=== PATIENT | female | born 1980 | race Caucasian/White ===

== ENCOUNTER → 2022-07-22 | Outpatient (CLI) | payer OTHER, SELFPAY | END | disposition home or self-care (01) | LOC: SL 20:07 | PROVIDERS: PCP Internal Medicine; Visit Provider Internal Medicine Cardiovascular Disease | DX: R06.83 Snoring (principal); R53.81 Other malaise; I10 Essential (primary) hypertension | CPT/HCPCS: 95810 ==

== ENCOUNTER → 2022-08-21 | Outpatient (CLI) | payer OTHER, SELFPAY ==
--- NOTE | 2022-08-21 12:54 | CT_ITS ---
STUDY: CT CHEST WITHOUT CONTRAST REASON FOR EXAM: Female, 42 years old. FATIGUE OVERREAD ONLY RADIATION DOSAGE (If Supplied By Facility): CTDIvol = ( 35.41 ) mGy, DLP = ( 1413.14 ) mGycm TECHNIQUE: Transaxial imaging was performed without the administration of intravenous contrast material. Individualized dose optimization techniques were used for this CT. COMPARISON: No relevant priors. FINDINGS: CHEST There is evidence of bilateral breast implants. The lungs are normal. There is no demonstrated pleural abnormality. Normal heart and pericardium. Normal mediastinum. Normal hilar regions. Normal unenhanced pulmonary arteries. Normal aorta arch and descending thoracic aorta. Normal osseous structures. Fatty infiltration of the liver. CT/Limited Chest CT Cardiac Only IMPRESSION: Normal unenhanced CT chest Electronically Signed: Cas Estrada MD at 14:31 EDT ,
[2022-08-21 13:02] VITALS: BP 121/58; PULSE 53; RESP 16; TEMP 36.8; O2SAT 98; BMI 25.0
[2022-08-21 13:15] VITALS: BP 121/58; PULSE 53
[2022-08-21] MEDS: Nitroglycerin SL (ED/IMG/CATH) 0.4 MG TABLET SL (13:15)
[2022-08-21 13:24] VITALS: BP 129/40; PULSE 62; RESP 16; O2SAT 95
[2022-08-21 13:26] LABS: CREATININE FINGERSTICK < 0.9 mg/dL (0.55-1.02); EGFR FINGERSTICK > 60.0000 mL/min (>60)
--- NOTE | 2022-08-21 18:18 | CCTA_ITS ---
CCTA w/Cont Coronary Arteries Date of Study:: 08/21/22 Dyspnea on Exertion Consent:: Per Patient The patient underwent coronary CTA with specific attention paid to the coronary vasculature for the evaluation of underlying atherosclerotic coronary artery disease. The patient tolerated the procedure well with no obvious adverse events. LEFT MAIN CORONARY ARTERY: The left main coronary artery is a large vessel giving rise to the left anterior descending coronary artery and the left circumflex coronary artery. The left main coronary artery appears to be angiographically within normal limits. LEFT ANTERIOR DESCENDING CORONARY ARTERY: The left anterior descending coronary artery is a large vessel which eventually tapers to a smaller vessel as it courses to the LV apex. The left anterior descending coronary artery appears to be angiographically within normal limits. LEFT CIRCUMFLEX CORONARY ARTERY: The left circumflex coronary artery is a large vessel which gives rise to a moderate-sized bifurcating obtuse marginal branching system. The left circumflex coronary artery system appears to be angiographically within normal limits RIGHT CORONARY ARTERY: The right coronary artery appears to be a large dominant vessel giving rise to a smaller right posterior descending coronary artery system. The right coronary artery system appears to be angiographically within normal limits. THORACIC AORTA: The thoracic aorta appears to be patent and angiographically within normal li mits. PULMONARY ARTERY: The main pulmonary artery and proximal portions of the right and left pulmonary artery appear to be patent without obvious filling defects. LEFT ATRIUM/APPENDAGE: The left atrial appendage appears to be patent without obvious filling defects. MITRAL VALVE: The mitral valve appears to be bileaflet. AORTIC VALVE: The aortic valve appears to be trileaflet. LEFT VENTRICLE: The left ventricle appears demonstrate normal left ventricular systolic function. The calculated left ventricular ejection fraction is 64%. CORONARY CALCIUM SCORE: A coronary calcium score was not obtained. This note was generated using a voice recognition system and there may be incorrect words, spelling or punctuation that were not noted when reviewing the office note prior to saving.
--- NOTE | 2022-08-25 11:37 | CCTA.WCONT ---
CCTA w/Cont Coronary Arteries Date of Study:: 08/21/22 Chest pain Consent:: Informed consent was obtained LEFT MAIN CORONARY ARTERY: Normal arising from the left coronary cusp [] LEFT ANTERIOR DESCENDING CORONARY ARTERY: Bifurcating from the left main coronary artery and continuing towards the apex of the ventricle giving of a prominent diagonal vessel with no significant stenosis noted [] LEFT CIRCUMFLEX CORONARY ARTERY: Nondominant but large vessel giving off an obtuse marginal branch with no significant stenosis noted [] RIGHT CORONARY ARTERY: Dominant large coronary artery continuing with a posterior descending artery with no significant stenosis noted [] THORACIC AORTA: Normal [] PULMONARY ARTERY: Normal [] LEFT ATRIUM/APPENDAGE: [] MITRAL VALVE: [] AORTIC VALVE: Trileaflet [] LEFT VENTRICLE: Normal size [] Conclusion: Normal coronary CT angiogram noted
== END | disposition home or self-care (01) ==
PROVIDERS: PCP Internal Medicine; Referring Provider Internal Medicine Cardiovascular Disease; Visit Provider Internal Medicine Cardiovascular Disease
DX: R06.09 Other forms of dyspnea (principal); R07.9 Chest pain, unspecified; R53.83 Other fatigue
CPT/HCPCS: 75574; 76380; Q9967

== ENCOUNTER → 2022-08-28 | Outpatient (CLI) | payer OTHER, SELFPAY ==
[2022-08-28 16:53] LABS: Bacteria 0 SEEN /hpf (None Seen); Mucous, Urine 0 SEEN /hpf (<or=2+); Red Blood Cells-Urine 0 SEEN /hpf (0-5)
[2022-08-28 18:12] LABS: Color, Urine Yellow (Yellow); Glucose, Dipstick Normal (Normal); Ketone-Dipstick Negative (Negative); Leukocyte Esterase-Dipstick Negative /ul (Negative); Nitrite-Dipstick Negative (Negative); Occult Blood-Urine 10 /ul (Negative); Protein-Dipstick Negative (Negative); Urine Bilirubin Dipstick Negative (Negative); Urine Clarity Clear (Clear); Urine Urobilinogen Normal (Normal)
[2022-08-28 18:15] LABS: Absolute Lymphocyte Count 2.38 X10^3/uL (0.83-4.51); Basophil# 0.03 X10^3/uL; Basophil% 0.4 % (0-1); Eosinophil# 0.06 X10^3/uL; Eosinophils% 0.9 % (0-5); Hematocrit 40.4 % (37-47); Hemoglobin 14.1 g/dL (12.0-15.0); Lymphocyte # 2.38 X10^3/ul (0.83-4.51); Lymphocyte % 34.1 % (19-41); Mean Corp Hgb Conc 34.9 g/dL (32-36); Mean Corpuscular Hgb 30.5 pg (27.0-32.0); Mean Corpuscular Volume 87.4 fL (81-99); Mean Platelet Vol. 10.4 fl (6.2-12.0); Monocyte# 0.45 X10^3/uL; Monocyte% 6.5 % (0-10); NRBC Flagged by Analyzer 0 % (0-5); Neutrophil # 4.04 X10^3/uL (2.7-7.7); Platelet Count 285 K/mm3 (150-450); RBC Distribution Width CV 12.6 % (11.6-14.6); RBC Distribution Width SD 40.1 fl (35.1-43.9); Red Blood Count 4.62 M/mm3 (4.2-5.4)
[2022-08-28 18:34] LABS: Vitamin B12 914 pg/mL (211-911)
[2022-08-28 18:44] LABS: Squamous Epithelial Cells - UA 0-5 SEEN /hpf (5-10); White Blood Cells 0-5 SEEN /hpf (0-5)
[2022-08-28 19:14] LABS: ALB/GLOB Ratio 1.2 RATIO (0.9-2.4); AST(SGOT) 24 U/L (15-37); Alanine Aminotransfer ALT/SGPT 30 U/L (13-56); Albumin, Serum 4.4 g/dL (3.2-5.0); Alkaline Phosphatase 41 U/L (45-117); Anion Gap 9 (5-15); BUN 20 mg/dL (7-18); BUN/Creat Ratio 21.6 RATIO (10-20); Calcium,Total 10.1 mg/dL (8.5-10.1); Chloride 98 mmol/L (98-107); Cholesterol 216 mg/dL (200); Creatinine, Serum 0.93 mg/dL (0.55-1.02); EST Glomerular Filtration Rate 71 mL/min (>60); Est Glom Filt Rate - Afr Amer 86 mL/min (>60); Ferritin 23 ng/mL (8-252); Globulin 3.6 g/dL (2.2-4.2); Glucose 86 mg/dL (74-106); High Density Lipoprotein 104 mg/dL; Iron 81 ug/dL (50-170); Iron Binding Capacity,Total 386 ug/dL (250-450); Potassium 3.5 mmol/L (3.5-5.1); Sodium Level 135 mmol/L (136-145); Thyroid Stim Hormone (TSH) 2.55 uIU/mL (0.358-3.74); Triglycerides 61 mg/dL; Very Low Density Lipoprotein 12 mg/dL (5-40)
== END | disposition home or self-care (01) ==
LOC: MFPLAB 16:50
PROVIDERS: PCP Family Medicine; Referring Provider Family Medicine; Visit Provider Family Medicine
DX: D64.9 Anemia, unspecified (principal); I10 Essential (primary) hypertension
CPT/HCPCS: 36415; 80053; 80061; 81001; 82607; 82728; 82746; 83540; 83550; 84443; 85025

== ENCOUNTER → 2022-09-04 | Outpatient (CLI) | payer OTHER, SELFPAY ==
--- NOTE | 2022-09-04 16:40 | US_ITS ---
STUDY: RENAL ULTRASOUND - COMPLETE REASON FOR EXAM: Female, 42 years old. EARLY ONSET HTN TECHNIQUE: Ultrasound evaluation of the kidneys was performed with real-time and static willis-scale imaging. COMPARISON: None. FINDINGS: RIGHT KIDNEY: Normal location of the right kidney, which is normal in size. The right kidney measures 11.5 cm x 5.7 cm x 3.7 cm. There is a normal cortex of the right kidney. The renal cortex measures 1.1 cm. There is no right renal mass or cyst. There are no right renal calculi. There is no right hydronephrosis. DISTAL RIGHT URETER: There is non-visualization of the distal right ureter. There is no demonstrated right ureterovesical junction calculus. There is a visualized right ureteral jet. LEFT KIDNEY: Normal location of the left kidney, which is normal in size. The left kidney measures 11.3 cm x 4.9 cm x 6.1 cm. There is a normal cortex of the left kidney. The renal cortex measures 1. cm. There is no left renal mass or cyst. There is a 4 mm x 6 mm x 5 mm calculus in the upper pole of the kidney. There is no left hydronephrosis. DISTAL LEFT URETER: There is non-visualization of the distal left ureter. There is no demonstrated left ureterovesical junction calculus. There is a visualized left ureteral jet. BLADDER: The distended urinary bladder has a volume of 33 ml. There is a normal wall thickness of the distended urinary bladder. There is no demonstrated mass within the urinary bladder. There are no demonstrated bladder calculi. Incidental note is made of a 1.3 cm x 1.3 cm x 0.9 some septated cyst in the inferior right lobe of the liver. US/Kidney and Bladder IMPRESSION: 4 mm x 5 mm x 6 mm nonobstructive left intrarenal calculus. Electronically Signed: Cas Estrada MD at 9:55 EST ,
== END | disposition home or self-care (01) ==
PROVIDERS: PCP Family Medicine; Referring Provider Family Medicine; Visit Provider Family Medicine
DX: I10 Essential (primary) hypertension (principal)
CPT/HCPCS: 76770

== ENCOUNTER 2022-09-13 09:21 | Outpatient (CLI) | payer OTHER, SELFPAY ==
--- NOTE | 2022-09-13 09:27 | US_ITS ---
STUDY: ABDOMINAL ULTRASOUND - RIGHT UPPER QUADRANT REASON FOR VISIT: Female, 42 years old abnormal LFTs TECHNIQUE: Ultrasound evaluation of the right upper quadrant was performed with real-time and static cano-scale imaging. TECHNICAL QUALITY: Adequate. COMPARISON: 09/04/2022 FINDINGS: Liver: The liver measures 14.5 cm. There is normal echogenicity of the liver. The bile ducts are within normal limits. There is hepatic color flow. The direction of portal flow is hepatopetal. There is no demonstrated solid mass lesion. There is a septated 1.1 cm cyst in the right lobe unchanged from the previous study. There are 2 other simple cysts both measuring approximately 8 mm. Gallbladder: Normal distended gallbladder. The gallbladder wall measures 2 mm. There is a negative sonographic Patino''s sign. There is no pericholecystic fluid. There are no gallstones. Common Bile Duct (C.B.D.): The common bile duct measures 3 mm. Pancreas: Normal size of the head, body and tail of the pancreas. There is normal echogenicity of the pancreas. There is no demonstrated pancreatic mass or cyst. Right Kidney: Normal size of the right kidney. The right kidney measures 10.7 x 5.7 x 3.3 cm. Normal renal cortex. The right cortex measures 1.8 cm. There is no demonstrated renal mass or cyst. There is no right hydronephrosis. US/Abdomen Limited IMPRESSION: No suspicious sonographic findings, simple and septated hepatic cysts, no specific follow-up needed. Electronically Signed: Hunter Chamberlain MD at 10:19 EST ,
== END 2022-09-13 23:59 | disposition home or self-care (01) ==
PROVIDERS: PCP Family Medicine; Referring Provider Family Medicine; Visit Provider Family Medicine
DX: R16.0 Hepatomegaly, not elsewhere classified (principal)
CPT/HCPCS: 76705

== ENCOUNTER → 2022-10-14 | Outpatient (CLI) | payer OTHER, SELFPAY ==
--- NOTE | 2022-10-14 07:55 | RDU_ITS ---
Reason For Study: HTN Right Renal Artery Left Renal Artery Right renal artery ostium Left renal artery ostium 132.9/47.4 102.2/43.0 RSV/EDV. PSV/EDV. Right renal artery proximal Left renal artery proximal PSV/EDV 91.3/21.1 PSV/EDV. 81.8/22.5 . Right renal artery mid 135.1/51.8 Left renal artery mid 121.9/33.2 PSV/EDV. PSV/EDV . Right renal artery distal Left renal artery distal 129.1/29.1 106.5/34.7 PSV/EDV. PSV/EDV. Right Renal Parenchyma Left Renal Parenchyma Upper Pole Medula 37.1/12.4 Left upper pole medulla 40.7/16.1 PSV/EDV. PSV/EDV . Right upper pole medulla EDR .33 . Left upper pole medulla EDR .39 . Right upper pole medulla R.I. .67 . Left upper pole medulla R.I. .61 . Upper Gregory Cortx 41.6/15.2 PSV/EDV. UP Cortex 38.0/15.2 PSV/EDV. Right upper pole cortex EDR .36 . Left upper pole cortex EDR .4 . Right upper pole cortex R.I. .64 . Left upper pole cortex R.I. .6 . Right lower Pole medulla 38.9/14.2 Left lower Pole medulla 27.9/10.6 PSV/EDV . PSV/EDV . Right lower pole medulla EDR .37 . Left lower pole medulla EDR .38 . Right lower pole medulla R.I. .63 . Left lower pole medulla R.I. .62 . Lower Pole Cortex 33.4/6.9 PSV/EDV. Lower Pole Cortx 38.9/16.1 PSV/EDV. Right lower pole cortex EDR .21 . Left lower pole cortex EDR .41 . Right lower pole cortex R.I. .79 . Left lower pole cortex R.I. .59 . Right Renal Hilar Left Renal Hilar Right Hilar avg 65.4/20.4 PSV/EDV. LT Hilar avg 48.0/17.0 PSV/EDV . Right hilar acceleration time 50 Left hilar acceleration time 60 m/sec. m/sec. Right Renal Dimensions Left Renal Dimensions Right kidney size 10.7 cm . Left kidney size 11.0 cm . Right cortical dimension 1.67 cm . Left cortical dimension 2.13 cm . Aorta Proximal abdominal aorta 1.46 x 1.27 cm . Proximal abdominal aorta peak systolic velocity is 106.7 cm/sec . Distal abdominal aorta 1.49 x 1.59 cm . Distal abdominal aorta peak systolic velocity is 104.4 cm/sec . VL/Renal Artery Duplex Ultrasound Interpretation Summary Right renal artery patent with normal velocities, no stenosis. Left renal artery patent with normal velocities, no stenosis. Right renal vein patent Left renal vein patent Right kidney normal in size Left kidney normal in size Ordering Physician: Néstor Garcia Performed By: Sameer Márquez RVT
== END | disposition home or self-care (01) ==
LOC: CVS 07:54
PROVIDERS: PCP Family Medicine; Referring Provider Family Medicine; Visit Provider Family Medicine
DX: I10 Essential (primary) hypertension (principal)
CPT/HCPCS: 93975

== ENCOUNTER → 2023-02-10 | Outpatient (CLI) | payer OTHER, SELFPAY ==
--- NOTE | 2023-02-10 14:47 | BI_ITS ---
MAMMOGRAPHY - BILATERAL SCREENING REASON FOR EXAM: Female, 43 years old. Routine annual screening examination. PERTINENT HISTORY: Non-contributory. Bilateral breast implants. TECHNIQUE: Digital bilateral breast morales (3D mammographic acquisition) in the CC and MLO projections. 2-D mediolateral oblique (MLO) and craniocaudad (CC) views of both breasts were obtained. CAD: Full Field Digital Mammography with Computer Added Detection was performed. COMPARISON: None. Baseline examination. FINDINGS: Breast Composition: The breasts are extremely dense, which lowers the sensitivity of mammography. There are no dominant masses or suspicious calcifications. Bilateral breast implants are unremarkable. No other significant abnormalities are identified. BI/SCRN MAMM (CAD)W/MORALES BILAT IMPRESSION: Negative screening mammogram. Yearly followup mammogram recommended. (A) ASSESSMENT CATEGORY: BIRADS Category 2: Benign. A letter regarding these results will be sent to the patient by the facility within 30 days. Approximately 10% of breast cancers are not detected by mammography. A normal mammogram should not delay biopsy of a clinically suspicious abnormality. [id number] Electronically Signed: Cas Estrada MD at 15:29 EDT ,
== END | disposition home or self-care (01) ==
LOC: OPBI 14:45
PROVIDERS: PCP Family Medicine; Referring Provider Nurse Practitioner Family; Visit Provider Nurse Practitioner Family
DX: Z12.31 Encounter for screening mammogram for malignant neoplasm of breast (principal)
CPT/HCPCS: 77063; 77067

== ENCOUNTER → 2023-02-13 | Outpatient (CLI) | payer OTHER, SELFPAY ==
--- NOTE | 2023-02-13 16:03 | RAD_ITS ---
EXAM: XR ABDOMEN, 2 VIEWS AND XR CHEST, 1 VIEW CLINICAL INDICATION: unspecified abdominal pain TECHNIQUE: Frontal view of the chest, frontal view of the abdomen/pelvis and upright or decubitus view of the abdomen. This report was created using [employer] report generation technology. COMPARISON: None. FINDINGS: CHEST: LUNGS AND PLEURAL SPACES: Unremarkable. No consolidation or edema. No pneumothorax. No effusion. HEART: Unremarkable. Cardiac silhouette not enlarged. MEDIASTINUM: Central airways and mediastinal contour are unremarkable. ABDOMEN: INTRAPERITONEAL SPACE: No free air. GASTROINTESTINAL TRACT: Unremarkable. Non-obstructive. No bowel or stomach distention. Mild gas and stool in the hepatic flexure, minimal gas and stool in the splenic flexure, mild gas in the rectosigmoid. ORGANS: Unremarkable as visualized. No organomegaly. No abnormal calcifications. TUBES, LINES AND DEVICES: None. BONES/JOINTS: No acute findings. SOFT TISSUES: No acute findings. Multiple phleboliths in the pelvis. RAD/Acute Abdomen Inc Chest IMPRESSION: Negative chest and abdominal series. Electronically Signed: Reina Patrick MD at 7:50 EDT ,
[2023-02-13 17:59] LABS: Absolute Lymphocyte Count 2.08 X10^3/uL (0.83-4.51); Absolute Neutrophil Count 2.7 X10^3/uL (2.0-7.7); Basophil# 0.04 X10^3/uL; Basophil% 0.8 % (0-1); Eosinophil# 0.07 X10^3/uL; Eosinophils% 1.3 % (0-5); Hematocrit 39.3 % (37-47); Hemoglobin 12.8 g/dL (12.0-15.0); Lymphocyte # 2.08 X10^3/ul (0.83-4.51); Lymphocyte % 39.5 % (19-41); Mean Corp Hgb Conc 32.6 g/dL (32-36); Mean Corpuscular Hgb 29.2 pg (27.0-32.0); Mean Corpuscular Volume 89.7 fL (81-99); Mean Platelet Vol. 10.7 fl (6.2-12.0); Monocyte# 0.42 X10^3/uL; NRBC Flagged by Analyzer 0 % (0-5); Neutrophil # 2.65 X10^3/uL (2.7-7.7); Neutrophil % 50.2 % (47-70); Platelet Count 240 K/mm3 (150-450); RBC Distribution Width CV 12.5 % (11.6-14.6); RBC Distribution Width SD 41.4 fl (35.1-43.9); Red Blood Count 4.38 M/mm3 (4.2-5.4); White Blood Count 5.3 K/mm3 (4.4-11.0)
[2023-02-13 18:51] LABS: ALB/GLOB Ratio 1.2 RATIO (0.9-2.4); AST(SGOT) 22 U/L (15-37); Alanine Aminotransfer ALT/SGPT 26 U/L (13-56); Albumin, Serum 4.1 g/dL (3.2-5.0); Alkaline Phosphatase 50 U/L (45-117); Anion Gap 4 (5-15); BUN 17 mg/dL (7-18); BUN/Creat Ratio 22.2 RATIO (10-20); Chloride 104 mmol/L (98-107); Creatinine, Serum 0.77 mg/dL (0.55-1.02); EST Glomerular Filtration Rate 88 mL/min (>60); Est Glom Filt Rate - Afr Amer 107 mL/min (>60); Globulin 3.3 g/dL (2.2-4.2); Glucose 90 mg/dL (74-106); Potassium 3.7 mmol/L (3.5-5.1); Protein, Total 7.4 g/dL (6.4-8.2); Sodium Level 133 mmol/L (136-145)
== END | disposition home or self-care (01) ==
PROVIDERS: PCP Family Medicine; Referring Provider Family Medicine; Visit Provider Family Medicine
DX: R10.9 Unspecified abdominal pain (principal); K21.9 Gastro-esophageal reflux disease without esophagitis
CPT/HCPCS: 36415; 74022; 80053; 85025

== ENCOUNTER → 2023-05-22 | Outpatient (CLI) | payer OTHER, SELFPAY ==
[2023-05-27 22:07] LABS: Beef <0.10 kU/L (Class 0); Chocolate <0.10 kU/L (Class 0); Corn <0.10 kU/L (Class 0); Egg, Whole <0.10 kU/L (Class 0); Milk (Cow) <0.10 kU/L (Class 0); Peanut <0.10 kU/L (Class 0); Pork <0.10 kU/L (Class 0); Soybean <0.10 kU/L (Class 0); Wheat <0.10 kU/L (Class 0)
== END | disposition home or self-care (01) ==
LOC: MFPLAB 11:54
PROVIDERS: PCP Family Medicine; Visit Provider Family Medicine
DX: Z91.018 Allergy to other foods (principal); R10.9 Unspecified abdominal pain
CPT/HCPCS: 36415; 82784; 83516; 86003; 86005; 86255

== ENCOUNTER 2023-06-02 09:10 | Emergency (ER) | payer OTHER, SELFPAY ==
[2023-06-02 09:11] VITALS: BP 160/81; PULSE 90; RESP 18; TEMP 35.9; O2SAT 98; BMI 25.0
--- NOTE | 2023-06-02 09:33 | ED.VIS.BACK ---
HPI History of Present Illness Chief Complaint: Back Detail of Chief Complaint: Back pain Informant: patient Narrative Narrative: Patient presents to the emergency department complaint of back pain that initially started yesterday. Patient states the pain was mild. Patient states pain progressively got worse. She does state that she works out a lot but has not lifted heavy for a couple of weeks. Patient also has history of chronic right knee issues and pain and is trying to delay getting a knee replacement. She is not sure if she is overcompensating and how she moves which caused her back pain. She denies urinary symptoms. She denies pain radiating down her legs. She denies loss of bowel or bladder function. Patient just having a hard time moving secondary to pain. She has had no fever or recent illness. [facility] Medical History Anemia Bradycardia Depression [place] (dyspnea on exertion) Essential (primary) hypertension Fatigue GERD (gastroesophageal reflux disease) Migraine Home Medications cyanocobalamin (vitamin B-12) 1,000 mcg capsule 1,000 mcg PO DAILY 07/07/22 [History Last Taken Unknown] ferrous sulfate 325 mg (65 mg iron) tablet 325 mg PO DAILY 07/07/22 [History Last Taken Unknown] loratadine 5 mg chewable tablet (Children's Loratadine) 5 mg PO QAM PRN allergy symptoms 07/07/22 [History Last Taken Unknown] multivitamin with minerals (Hair,Skin and Nails tablet) 1 tab PO DAILY 07/07/22 [History Last Taken Unknown] omega-3 fatty acids 1,000 mg capsule 1,000 mg PO DAILY 07/07/22 [History Last Taken Unknown] lisinopril 20 mg-hydrochlorothiazide 12.5 mg tablet 1 tab PO DAILY #90 tabs 07/09/22 [Rx Last Taken Unknown] cyclobenzaprine 10 mg tablet 10 mg PO TID PRN Muscle Spasm #20 TABLETS 06/02/23 [Rx Last Taken Unknown] hydrocodone-acetaminophen 5-325mg 5mg-325mg 1 tab PO Q4H PRN PRN Pain 2 days #15 TABLETS 06/02/23 [Rx Last Taken Unknown] naproxen 500 mg tablet 500 mg PO BID #14 tabs 06/02/23 [Rx Last Taken Unknown] Allergy/AdvReac Type Severity Reaction Status Date / Time No Known Allergies Allergy Verified 06/02/23 09:10 Family History Father Cancer Lung Son 5p minus syndrome Surgical History History of breast augmentation (~2009) History of hysterectomy (~04/16/21) Hx of abdominoplasty Hx of knee surgery Hx of knee surgery Hx of tubal ligation Social History Smoking Status: Never smoker alcohol intake: current alcohol intake frequency: holidays/special occasions only substance use type: does not use caffeine: Yes Type: coffee Number of servings: 1 ROS ROS ED Review of Systems ROS Unobtainable: other Constitutional Constitutional ED: Reports lethargy; Denies chills, fever(s), sweats or weight loss Eyes Eyes: Denies blurry vision, change in vision or diplopia ENT ENT ED: Denies rhinorrhea or sore throat Cardiovascular Cardiovascular: Denies chest pain, orthopnea or racing heartbeat Respiratory/Chest Respiratory/Chest: Denies cough, dyspnea, dyspnea on exertion, orthopnea or sputum Gastrointestinal Gastrointestinal: Denies abdominal pain, diarrhea, nausea or vomiting Genitourinary Genitourinary ED: Denies dysuria, hematuria or urinary frequency Musculoskeletal Musculoskeletal: Reports back pain; Denies arthralgias, myalgias or neck pain Integumentary Denies abscess, Abrasions or rash Neurologic Neurologic: Denies headache(s) or weakness Psychiatric Psychiatric: Denies anxiety, depression or suicidal thoughts Endocrine Endocrinology: Denies polydipsia, polyphagia or polyuria Hematologic/Lymphatic Hematologic/Lymphatic: Denies easy bleeding, easy bruising or lymphadenopathy Allergic/Immunologic Allergic/Immunologic ED: Denies mouth swelling, tongue swelling or urticaria EXAM Physical Exam Const Vital Signs: 06/02/23 09:11 06/02/23 10:45 Temperature 96.6 F L Temperature Source Temporal Pulse Rate 90 72 Respiratory Rate 18 18 Blood Pressure 160/81 H 158/62 H Blood Pressure Mean 107 Pulse Ox 98 Oxygen Delivery Method Room Air Positive well nourished and well developed General Appearance ED: well developed and NAD HEENT Reports TM's clear and moist mucous membranes normocephalic and atraumatic; Negative for trauma or tenderness Tympanic Membrane ED: Yes TM's clear Eyes PERRL and EOMs intact bilaterally General Eye ED: Negative for pale conjunctiva or scleral icterus Neck no lymphadenopathy, supple and no JVD General: Negative for tenderness Chest Wall inspection of chest normal and palpation of chest normal Chest: Negative for tenderness Resp normal respiratory effort and clear to auscultation bilaterally Effort and Inspection: Negative for respiratory distress or pain with movement Auscultation: Negative for rhonchi, wheezes or diminished lung sounds Cardio regular rate, regular rhythm, S1 normal heart sound, S2 normal heart sound and no murmurs Peripheral Pulses: pulses 2+ throughout GI normal to inspection, nondistended, normoactive bowel sounds, soft to palpation, non-tender, non-distended and no masses Back/Spine Back/Spine Narrative: Patient has some mild tenderness over the right lumbar paraspinal musculature. She has no tenderness in the thoracic or lumbar spine. She has negative straight leg raises. Deep tendon reflexes are plus 2 out of 4 bilaterally at the patella and Achilles. Patient has normal L5 extension bilaterally. Patient has normal sensation to light touch. Extremity normal to inspection General Extremety ED: Negative for edema General Extremity: Negative for edema Neuro oriented x3, CN's II-XII intact bilaterally, no sensory deficits noted and gait normal Sensorium / Orientation: awake, alert, oriented to person, oriented to place and oriented to time Motor Exam: strength 5/5 throughout and strength abnormal Psych mental status grossly normal Skin no rashes or lesions noted and no wounds MDM MDM MDM Narrative Medical decision making narrative: Patient is with atraumatic back pain. No radiculopathic signs or symptoms. No red flags for cauda equina. Discussed imaging but clinically did not feel this was indicated as she has had no trauma and she is comfortable with this. Suspect likely this is more muscle spasm. Patient was given a shot of Dilaudid as well as Toradol and a dose of Valium p.o. She will be given a prescription for [place], Naprosyn, and Flexeril. Patient advised to follow-up with her primary care physician within next 3 to 5 days. Advised to avoid lifting or repetitive motions with her back. She is advised to return if worsening pain, weakness extremities, change in bowel or bladder function, or condition should worsen anyway. Discharge Plan Triage Chief Complaint: Back ED Provider: Nelly Gimenez Dx/Rx/DC Orders Clinical Impression: Back pain Instructions: ED Back Spasm, No Trauma, ED Back and Neck Pain, General Prescriptions: New cyclobenzaprine [cyclobenzaprine] 10 mg tablet 10 mg PO TID PRN (Reason: Muscle Spasm) Qty: 20 0RF hydrocodone-acetaminophen [hydrocodone-acetaminophen] 5-325 mg tablet 1 tab PO Q4H PRN PRN (Reason: Pain) 2 Days Qty: 15 0RF naproxen 500 mg tablet 500 mg PO BID Qty: 14 0RF No Action cyanocobalamin (vitamin B-12) 1,000 mcg capsule 1,000 mcg PO DAILY ferrous sulfate 325 mg (65 mg iron) tablet 325 mg PO DAILY Children's Loratadine 5 mg tablet,chewable 5 mg PO QAM PRN (Reason: allergy symptoms) Hair,Skin and Nails Tablet 1 tab PO DAILY omega-3 fatty acids 1,000 mg capsule 1,000 mg PO DAILY lisinopril-hydrochlorothiazide 20-12.5 mg tablet 1 tab PO DAILY Qty: 90 3RF Primary Care Provider: Néstor Garcia Referrals: Néstor Garcia MD [Primary Care Provider] - Disposition Disposition: Home, Self Care Discharge Date/Time: 06/02/23 10:46
[2023-06-02] MEDS: diazePAM 2 MG Tablet 4 MG PO (09:37)
[2023-06-02] MEDS: Ketorolac 60 MG/2 ML Vial IM (09:38)
[2023-06-02] MEDS: HYDROmorphone 1 MG/ML Syringe IM (09:40)
[2023-06-02 10:45] VITALS: BP 158/62; PULSE 72; RESP 18
== END 2023-06-02 10:46 | disposition home or self-care (01) ==
LOC: ED 09:49
PROVIDERS: Emergency Provider Emergency Medicine; PCP Family Medicine; Visit Provider Emergency Medicine
DX: M54.9 Dorsalgia, unspecified (principal); I10 Essential (primary) hypertension
CPT/HCPCS: 96372; 99283

== ENCOUNTER 2023-07-28 17:47 | Emergency (ER) | payer OTHER, SELFPAY ==
[2023-07-28 17:48] VITALS: BP 151/93; PULSE 70; RESP 18; TEMP 36.3; O2SAT 97; BMI 25.4
--- NOTE | 2023-07-28 18:05 | CT_ITS ---
EXAM: CT ABDOMEN AND PELVIS WITHOUT INTRAVENOUS CONTRAST CLINICAL INDICATION: Kidney Stone -- Right-sided pain, status post hysterectomy TECHNIQUE: Helically acquired images were obtained of the abdomen and pelvis without intravenous contrast. This CT exam was performed using one or more of the following dose reduction techniques: automated exposure control, adjustment of the mA and/or kV according to patient size, and/or use of iterative reconstruction technique. COMPARISON: No relevant prior studies available. FINDINGS: LOWER THORAX: Unremarkable. Lung bases are clear. No cardiomegaly. No significant pericardial effusion. ABDOMEN: LIVER: Low-attenuation lesions in the liver measure up to 0.9 cm, too small to characterize. Liver is otherwise unremarkable. GALLBLADDER AND BILE DUCTS: Unremarkable. No calcified gallstones. No gallbladder distention or wall edema. No intra- or extrahepatic biliary ductal dilation. PANCREAS: Unremarkable. No focal cystic mass. SPLEEN: Unremarkable. Normal size without focal cystic or solid mass. ADRENALS: Unremarkable. No nodules. KIDNEYS AND URETERS: 3 mm nonobstructing stone in the upper pole of the left kidney. Kidneys are otherwise unremarkable. No hydronephrosis. Ureters are normal in course and caliber. No ureteral stone. Normal renal size and position. STOMACH AND BOWEL: Multiple fluid-filled loops of small bowel in the pelvis, upper limit of normal in size. Gas fluid levels are nonspecific. No stomach or bowel distention. No focal inflammatory change. PELVIS: APPENDIX: No evidence of acute appendicitis. BLADDER: Unremarkable. REPRODUCTIVE: Unremarkable as visualized. No mass. ABDOMEN and PELVIS: INTRAPERITONEAL SPACE: Unremarkable. No ascites or other fluid collection. No free air. BONES/JOINTS: Unremarkable. No suspicious lytic or blastic abnormality. SOFT TISSUES: Unremarkable. No discrete abdominal or pelvic wall hernia. VASCULATURE: Unremarkable. Abdominal aorta is normal in caliber. LYMPH NODES: Unremarkable. No enlarged lymph nodes. CT/Abdomen/Pelvis without Cont IMPRESSION: 1. Nonspecific fluid-filled loops of bowel, consider enteritis. 2. Nonobstructing left renal stone. No obstructive uropathy. Electronically Signed: Elizabeth Berg MD at 18:49 EDT Reading Location ID and State: [id number] / Tel , Service support ,
--- NOTE | 2023-07-28 18:06 | EDS_ITS ---
HPI History of Present Illness Chief Complaint: Abd Pain Detail of Chief Complaint: Abrupt onset of right-sided abdominal pain on Thursday Informant: patient Onset/Context/Timing Onset: Days (July 25) Context: Sudden Onset Timing: Intermittent Quality: Pain Location: Right side abdomen to inguinal area Current Severity: Mild Maximum Severity: Severe Worsened by: Nothing Relieved by: Nothing Associated Symptoms Associated Symptoms: Nausea and vomiting on Thursday and not feeling well since with urinary sym Narrative Narrative: Patient is a 43-year-old female status post hysterectomy due to uterine fibroids who presents because of pending thought she needed to be evaluated because she has appendicitis. Patient had abrupt onset of pain that she is never experienced before on Thursday, July 25. Patient denies fever or chills. She does report urgency, dysuria and frequency. She denies history of renal urolithiasis. There is no family history of renal or ureterolithiasis. She denies back pain. She denies vaginal bleeding or discharge. There is no history of trauma. She has not noted any skin lesions. Prior similar symptoms: No Recent Illness/Hospitalization: No [facility] Medical History Anemia Bradycardia Depression QUINTANA (dyspnea on exertion) Essential (primary) hypertension Fatigue GERD (gastroesophageal reflux disease) Migraine Home Medications cyanocobalamin (vitamin B-12) 1,000 mcg capsule 1,000 mcg PO DAILY 07/07/22 [History Last Taken Unknown] ferrous sulfate 325 mg (65 mg iron) tablet 325 mg PO DAILY 07/07/22 [History Last Taken Unknown] loratadine 5 mg chewable tablet (Children's Loratadine) 5 mg PO QAM PRN allergy symptoms 07/07/22 [History Last Taken Unknown] multivitamin with minerals (Hair,Skin and Nails tablet) 1 tab PO DAILY 07/07/22 [History Last Taken Unknown] omega-3 fatty acids 1,000 mg capsule 1,000 mg PO DAILY 07/07/22 [History Last Taken Unknown] cyclobenzaprine 10 mg tablet 10 mg PO TID PRN Muscle Spasm #20 TABLETS 06/02/23 [Rx Last Taken Unknown] hydrocodone-acetaminophen 5-325mg 5mg-325mg 1 tab PO Q4H PRN PRN Pain 2 days #15 TABLETS 06/02/23 [Rx Last Taken Unknown] naproxen 500 mg tablet 500 mg PO BID #14 tabs 06/02/23 [Rx Last Taken Unknown] lisinopril 20 mg-hydrochlorothiazide 12.5 mg tablet See Rx Instructions .Route .COMPLEX #90 tabs 07/22/23 [Rx Last Taken Unknown] famotidine 20 mg tablet (Pepcid) 20 mg PO BID #10 tabs 07/28/23 [Rx Last Taken Unknown] Allergy/AdvReac Type Severity Reaction Status Date / Time No Known Allergies Allergy Verified 07/28/23 17:48 Family History Father Cancer Lung Son 5p minus syndrome Surgical History History of breast augmentation (~2009) History of hysterectomy (~04/16/21) Hx of abdominoplasty Hx of knee surgery Hx of knee surgery Hx of tubal ligation Social History (Updated 07/28/23 @ 18:[address] Can Kimble MD) household members: spouse Smoking Status: Never smoker alcohol intake: current alcohol intake frequency: holidays/special occasions only substance use type: does not use caffeine: Yes Type: coffee Number of servings: 1 ROS ROS ED Constitutional Constitutional ED: Denies chills, fever(s), subjective or sweats Eyes Eyes: Denies blurry vision or change in vision ENT ENT ED: Denies ear pain or rhinorrhea Cardiovascular Cardiovascular: Denies chest pain or palpitations Respiratory/Chest Respiratory/Chest: Denies cough, dyspnea or dyspnea on exertion Gastrointestinal Gastrointestinal: Reports abdominal pain, nausea and vomiting; Denies constip ation, diarrhea or melena Genitourinary Genitourinary ED: Reports dysuria and urinary frequency; Denies hematuria Musculoskeletal Musculoskeletal: Denies arthralgias, back pain, myalgias or neck pain Integumentary Denies rash Neurologic Neurologic: Denies headache(s) or paresthesias Psychiatric Psychiatric: Denies anxiety or depression Endocrine Endocrinology: Denies cold intolerance or heat intolerance Hematologic/Lymphatic Hematologic/Lymphatic: Reports systems reviewed and no addt'l complaints, except as documented EXAM Physical Exam Const Vital Signs: 07/28/23 17:48 07/28/23 19:51 Temperature 97.4 F L Temperature Source Temporal Pulse Rate 70 54 L Respiratory Rate 18 16 Blood Pressure 151/93 H 131/85 H Blood Pressure Mean 112 100 Pulse Ox 97 97 Oxygen Delivery Method Room Air Positive well nourished and well developed Constitutional Narrative: Patient states the pain is presently a 4. She declined pain medicine. General Appearance ED: well developed and NAD; Negative for cyanotic, diaphoretic or pallor HEENT Reports moist mucous membranes HEENT Narrative: Head is atraumatic and normocephalic. Ears are normal. Nares patent. Mucosa is moist. Eyes PERRL and EOMs intact bilaterally General Eye ED: Negative for pale conjunctiva or scleral icterus Neck no lymphadenopathy, supple and no JVD Chest Wall inspection of chest normal and palpation of chest normal Resp normal respiratory effort and clear to auscultation bilaterally Cardio regular rate, regular rhythm, S1 normal heart sound, S2 normal heart sound and no murmurs GI no masses; Negative for non-tender, non-distended or hepatosplenomegaly Inspection: abdominal distention Auscultation: hyperactive bowel sounds Palpation: soft and tender RLQ Back/Spine no CVA tenderness Lumbar Spine / Lower Back: Negative for lumbar spinal tenderness Extremity normal to inspection General Extremety ED: Negative for edema or tenderness General Extremity: Negative for edema Neuro oriented x3, CN's II-XII intact bilaterally and no sensory deficits noted Sensorium / Orientation: alert Motor Exam: strength 5/5 throughout Psych mental status grossly normal Skin no rashes or lesions noted, no wounds and skin turgor normal General Skin Exam: elasticity normal; Negative for jaundice or pallor MDM MDM MDM Narrative Medical decision making narrative: Differential diagnoses to be mesenteric adenitis, appendicitis, ureterolithiasis. Since she is also complaining of urinary symptoms need to rule out complicated cystitis versus pyelonephritis CT without contrast of the abdomen pelvis was ordered as well as blood work and UA. Patient declined pain medicine. Lab Data Attestation: I reviewed the patient's lab results. Lab results narrative: CBC reveals slight shift otherwise unremarkable. Basic metabolic panel is. UA is normal. Labs: Laboratory Results - last 24 hr 07/28/23 07/28/23 18:05 18:10 WBC 5.7 RBC 4.57 Hgb 13.5 Hct 40.6 MCV 88.8 MCH 29.5 MCHC 33.3 RDW Std Deviation 40.2 RDW Coeff of Devante 12.3 Plt Count 222 MPV 9.5 Immature Gran % (Auto) 0.200 Neut % (Auto) 75.7 H Lymph % (Auto) 14.1 L [place] % (Auto) 7.8 Eos % (Auto) 1.9 Baso % (Auto) 0.3 Absolute Neuts (auto) 4.3 Absolute Lymphs (auto) 0.81 L Nucleated RBC % 0 Sodium 135 L Potassium 3.4 L Chloride 102 Carbon Dioxide 30.0 Anion Gap 3 L BUN 16 Creatinine 0.91 Estim Creat Clear Calc 73.21 Est GFR (MDRD) Af Amer 88 Est GFR (MDRD) Non-Af 72 BUN/Creatinine Ratio 17.6 Glucose 97 Calcium 8.5 Urine Color Yellow Urine Clarity Clear Urine pH 7.0 Ur Specific [place] 1.010 Urine Protein Negative Urine Glucose (UA) Normal Urine Ketones Negative Urine Occult Blood Negative Urine Nitrite Negative Urine Bilirubin Negative Urine Urobilinogen Normal Ur Leukocyte Esterase Negative Urine RBC 0 SEEN Urine WBC 0 SEEN Ur Squamous Epith Cells 0 SEEN Urine Bacteria 0 SEEN Urine Mucus 0 SEEN Radiography Diagnostic Testing: Clinical Impression(s) from Imaging Studies Abdomen/Pelvis CT 07/28/23 18:05 IMPRESSION: 1. Nonspecific fluid-filled loops of bowel, consider enteritis. 2. Nonobstructing left renal stone. No obstructive uropathy. Electronically Signed: Elizabeth Berg MD at 18:49 EDT Reading Location ID and State: [id number] / Tel , Service support , CT of the abdomen pelvis with out contrast reveals a left renal calculi. The liver and gallbladder are unremarkable. There is an hepatic cyst noted. There is no obvious inflammatory changes involving the appendix. There appears to be a stone in the bladder. Awaiting formal read by radiologist. Treatment and Re-Evaluation :: Patient's erythematous rash first noted on the neck is that spread to the chin and bilateral cheek region. The rash is slightly raised. It is very warm to hot to touch. It is not pruritic. We will treat with IV Pepcid. Patient was reassessed at 2100. Patient's rash is not as red. The rash does not feel as warm. Will discharge with short course of Pepcid. Discharge Plan Triage Chief Complaint: Abd Pain ED Provider: Can Kimble Dx/Rx/DC Orders Clinical Impression: Right lower quadrant abdominal pain, Essential (primary) hypertension, Enteritis, Erythematous rash, Renal calculus, left Instructions: How the Colon Works, ED Erythema, ED Kidney Stone Undescended No ... Prescriptions: New famotidine [Pepcid] 20 mg tablet 20 mg PO BID Qty: 10 0RF No Action cyanocobalamin (vitamin B-12) 1,000 mcg capsule 1,000 mcg PO DAILY ferrous sulfate 325 mg (65 mg iron) tablet 325 mg PO DAILY Children's Loratadine 5 mg tablet,chewable 5 mg PO QAM PRN (Reason: allergy symptoms) Hair,Skin and Nails Tablet 1 tab PO DAILY omega-3 fatty acids 1,000 mg capsule 1,000 mg PO DAILY cyclobenzaprine [cyclobenzaprine] 10 mg tablet 10 mg PO TID PRN (Reason: Muscle Spasm) Qty: 20 0RF hydrocodone-acetaminophen [hydrocodone-acetaminophen] 5-325 mg tablet 1 tab PO Q4H PRN PRN (Reason: Pain) 2 Days Qty: 15 0RF naproxen 500 mg tablet 500 mg PO BID Qty: 14 0RF lisinopril-hydrochlorothiazide 20-12.5 mg tablet See Rx Instructions .ROUTE .COMPLEX Qty: 90 3RF Dose Instruction: take 1 tablet by mouth once daily Rx Instructions: take 1 tablet by mouth once daily Primary Care Provider: Néstor Garcia Referrals: Néstor Garcia MD [Primary Care Provider] - 3-5 Days if not improving Disposition Disposition: Home, Self Care
[2023-07-28 18:22] LABS: Bacteria 0 SEEN /hpf (None Seen); Mucous, Urine 0 SEEN /hpf (<or=2+); Red Blood Cells-Urine 0 SEEN /hpf (0-5); Squamous Epithelial Cells - UA 0 SEEN /hpf (5-10); White Blood Cells 0 SEEN /hpf (0-5)
[2023-07-28 18:23] LABS: Absolute Lymphocyte Count 0.81 X10^3/uL (0.83-4.51); Absolute Neutrophil Count 4.3 X10^3/uL (2.0-7.7); Basophil# 0.02 X10^3/uL; Basophil% 0.3 % (0-1); Eosinophil# 0.11 X10^3/uL; Eosinophils% 1.9 % (0-5); Hematocrit 40.6 % (37-47); Hemoglobin 13.5 g/dL (12.0-15.0); Lymphocyte # 0.81 X10^3/ul (0.83-4.51); Lymphocyte % 14.1 % (19-41); Mean Corp Hgb Conc 33.3 g/dL (32-36); Mean Corpuscular Hgb 29.5 pg (27.0-32.0); Mean Corpuscular Volume 88.8 fL (81-99); Mean Platelet Vol. 9.5 fl (6.2-12.0); Monocyte# 0.45 X10^3/uL; Monocyte% 7.8 % (0-10); NRBC Flagged by Analyzer 0 % (0-5); Neutrophil # 4.34 X10^3/uL (2.7-7.7); Neutrophil % 75.7 % (47-70); Platelet Count 222 K/mm3 (150-450); RBC Distribution Width CV 12.3 % (11.6-14.6); RBC Distribution Width SD 40.2 fl (35.1-43.9); Red Blood Count 4.57 M/mm3 (4.2-5.4); White Blood Count 5.7 K/mm3 (4.4-11.0)
[2023-07-28 18:25] LABS: Color, Urine Yellow (Yellow); Glucose, Dipstick Normal (Normal); Ketone-Dipstick Negative (Negative); Leukocyte Esterase-Dipstick Negative /ul (Negative); Nitrite-Dipstick Negative (Negative); Occult Blood-Urine Negative /ul (Negative); Protein-Dipstick Negative (Negative); Urine Bilirubin Dipstick Negative (Negative); Urine Clarity Clear (Clear); Urine Urobilinogen Normal (Normal)
[2023-07-28 18:41] LABS: Anion Gap 3 (5-15); BUN 16 mg/dL (7-18); BUN/Creat Ratio 17.6 RATIO (10-20); Calcium,Total 8.5 mg/dL (8.5-10.1); Chloride 102 mmol/L (98-107); Creatinine, Serum 0.91 mg/dL (0.55-1.02); EST Glomerular Filtration Rate 72 mL/min (>60); Est Glom Filt Rate - Afr Amer 88 mL/min (>60); Estimated Creatinine Clearance 73.21 ml/min; Glucose 97 mg/dL (74-106); Potassium 3.4 mmol/L (3.5-5.1); Sodium Level 135 mmol/L (136-145)
[2023-07-28] MEDS: Famotidine 200 MG/20 ML MDV 20 MG in 0.9% Normal Saline (Pres. free 8 ML 300 MG IV (19:46)
[2023-07-28 19:51] VITALS: BP 131/85; PULSE 54; RESP 16; O2SAT 97
== END 2023-07-28 21:16 | disposition home or self-care (01) ==
PROVIDERS: Emergency Provider Emergency Medicine; PCP Family Medicine; Visit Provider Emergency Medicine
DX: K52.9 Noninfective gastroenteritis and colitis, unspecified (principal); N20.0 Calculus of kidney; I10 Essential (primary) hypertension; R21 Rash and other nonspecific skin eruption; R10.31 Right lower quadrant pain; Z90.710 Acquired absence of both cervix and uterus; Z79.899 Other long term (current) drug therapy; K21.9 Gastro-esophageal reflux disease without esophagitis
CPT/HCPCS: 74176; 80048; 81001; 85025; 96374; 99282; A4216; J3490

== ENCOUNTER → 2023-08-06 | Outpatient (CLI) | payer OTHER, SELFPAY ==
[2023-08-06 16:57] LABS: Bacteria 0 SEEN /hpf (None Seen); Mucous, Urine 0 SEEN /hpf (<or=2+); Red Blood Cells-Urine 0 SEEN /hpf (0-5); Squamous Epithelial Cells - UA 0 SEEN /hpf (5-10); White Blood Cells 0 SEEN /hpf (0-5)
[2023-08-06 17:43] LABS: Absolute Neutrophil Count 3.9 X10^3/uL (2.0-7.7); Basophil# 0.03 X10^3/uL; Basophil% 0.4 % (0-1); Eosinophil# 0.07 X10^3/uL; Hematocrit 41.7 % (37-47); Hemoglobin 14.1 g/dL (12.0-15.0); Mean Corp Hgb Conc 33.8 g/dL (32-36); Mean Corpuscular Hgb 29.9 pg (27.0-32.0); Mean Corpuscular Volume 88.5 fL (81-99); Mean Platelet Vol. 10.1 fl (6.2-12.0); Monocyte% 4.5 % (0-10); NRBC Flagged by Analyzer 0 % (0-5); Neutrophil # 3.86 X10^3/uL (2.7-7.7); Platelet Count 303 K/mm3 (150-450); RBC Distribution Width CV 11.9 % (11.6-14.6); RBC Distribution Width SD 38.2 fl (35.1-43.9); Red Blood Count 4.71 M/mm3 (4.2-5.4); White Blood Count 6.7 K/mm3 (4.4-11.0)
[2023-08-06 17:44] LABS: Color, Urine Yellow (Yellow); Glucose, Dipstick Normal (Normal); Ketone-Dipstick Negative (Negative); Leukocyte Esterase-Dipstick Negative /ul (Negative); Nitrite-Dipstick Negative (Negative); Occult Blood-Urine Negative /ul (Negative); Protein-Dipstick Negative (Negative); Urine Bilirubin Dipstick Negative (Negative); Urine Clarity Clear (Clear); Urine Urobilinogen Normal (Normal); Urine pH 6.5 (5.0 - 8.0)
[2023-08-06 18:00] LABS: ALB/GLOB Ratio 1.1 RATIO (0.9-2.4); AST(SGOT) 20 U/L (15-37); Alanine Aminotransfer ALT/SGPT 32 U/L (13-56); Alkaline Phosphatase 56 U/L (45-117); Anion Gap 4 (5-15); BUN 20 mg/dL (7-18); Chloride 101 mmol/L (98-107); Cholesterol 199 mg/dL (200); EST Glomerular Filtration Rate 65 mL/min (>60); Est Glom Filt Rate - Afr Amer 78 mL/min (>60); Globulin 3.6 g/dL (2.2-4.2); Glucose 90 mg/dL (74-106); High Density Lipoprotein 77 mg/dL; Potassium 3.7 mmol/L (3.5-5.1); Protein, Total 7.6 g/dL (6.4-8.2); Sodium Level 135 mmol/L (136-145); Thyroid Stim Hormone (TSH) 1.39 uIU/mL (0.358-3.74); Triglycerides 61 mg/dL; Very Low Density Lipoprotein 12 mg/dL (5-40)
== END | disposition home or self-care (01) ==
LOC: MTLAB 16:52
PROVIDERS: PCP Family Medicine; Referring Provider Family Medicine; Visit Provider Family Medicine
DX: I10 Essential (primary) hypertension (principal)
CPT/HCPCS: 80053; 80061; 81001; 84443; 85025

== ENCOUNTER 2023-09-15 13:26 | Emergency (ER) | payer OTHER, SELFPAY ==
[2023-09-15 13:28] VITALS: BP 135/83; PULSE 49; RESP 20; TEMP 36.2; O2SAT 100; BMI 25.2
--- NOTE | 2023-09-15 13:39 | EX.ED.DYSGE1 ---
HPI <MARIELENA Tena - Last Filed: 09/15/23 14:35> History of Present Illness Chief Complaint: Back Narrative Narrative: 43-year-old female presents with left low back/buttock pain. She states it flared up today when she went from sitting to standing. She had similar pain in May 2023 and was treated in the ED. She followed up with chiropractor and they were treating SI joint dysfunction with stretching and strengthening. She states it has not flared up again until today. She has no pain radiating down the leg, no weakness numbness or tingling. No saddle anesthesia or bladder bowel incontinence. No fall or trauma. [facility] <MARIELENA Tena - Last Filed: 09/15/23 14:35> [facility] Medical History Anemia Bradycardia Depression QUINTANA (dyspnea on exertion) Essential (primary) hypertension Fatigue GERD (gastroesophageal reflux disease) Migraine Home Medications cyanocobalamin (vitamin B-12) 1,000 mcg capsule 1,000 mcg PO DAILY 07/07/22 [History Last Taken Unknown] ferrous sulfate 325 mg (65 mg iron) tablet 325 mg PO DAILY 07/07/22 [History Last Taken Unknown] loratadine 5 mg chewable tablet (Children's Loratadine) 5 mg PO QAM PRN allergy symptoms 07/07/22 [History Last Taken Unknown] multivitamin with minerals (Hair,Skin and Nails tablet) 1 tab PO DAILY 07/07/22 [History Last Taken Unknown] omega-3 fatty acids 1,000 mg capsule 1,000 mg PO DAILY 07/07/22 [History Last Taken Unknown] cyclobenzaprine 10 mg tablet 10 mg PO TID PRN Muscle Spasm #20 TABLETS 06/02/23 [Rx Last Taken Unknown] naproxen 500 mg tablet 500 mg PO BID #14 tabs 06/02/23 [Rx Last Taken Unknown] lisinopril 20 mg-hydrochlorothiazide 12.5 mg tablet See Rx Instructions .Route .COMPLEX #90 tabs 07/22/23 [Rx Last Taken Unknown] famotidine 20 mg tablet (Pepcid) 20 mg PO BID #10 tabs 07/28/23 [Rx Last Taken Unknown] cyclobenzaprine 10 mg tablet 10 mg PO TID PRN Muscle Spasm #20 TABLETS 09/15/23 [Rx Last Taken Unknown] naproxen 500 mg tablet (Naprosyn) 500 mg PO BID PRN pain #20 tabs 09/15/23 [Rx Last Taken Unknown] Allergy/AdvReac Type Severity Reaction Status Date / Time No Known Allergies Allergy Verified 09/15/23 13:27 Family History Father Cancer Lung Son 5p minus syndrome Surgical History History of breast augmentation (~2009) History of hysterectomy (~04/16/21) Hx of abdominoplasty Hx of knee surgery Hx of knee surgery Hx of tubal ligation Social History household members: spouse Smoking Status: Never smoker alcohol intake: current alcohol intake frequency: holidays/special occasions only substance use type: does not use caffeine: Yes Type: coffee Number of servings: 1 ROS <MARIELENA Tena - Last Filed: 09/15/23 14:35> ROS ED ROS Narrative Constitutional: Negative for fever, chills, malaise. Neuro: Negative for motor/sensory dysfunction. Skin: Negative for rash, wound. Musc: Negative for joint pain, swelling, trauma. EXAM <MARIELENA Tena - Last Filed: 09/15/23 14:35> Physical Exam Narrative Exam Narrative: CONST: Patient sitting in no acute distress. EYES: Normal inspection. NECK: Normal inspection. RESP: No respiratory distress, CTAB. CVS: Regular rate and rhythm, no murmur, no gallop. Back: Normal inspection, midline tenderness or step-offs. Tender over left SI joint. 5/5 lower extremity strength in hip flexion, knee flexion/extension, DF/PF. Normal sensation, 2+ DP pulses. 2+ patellar and ankle reflexes. Pain with rising to a standing position but normal gait. SKIN: Color normal, no rash, warm, dry, intact. EXTREMITIES: Normal appearance, no pedal edema. NEURO: Oriented x4. PSYCH: Normal affect. Const Vital Signs: 09/15/23 13:28 Temperature 97.2 F L Temperature Source Temporal Pulse Rate 49 L Respiratory Rate 20 H Blood Pressure 135/83 H Blood Pressure Mean 100 Pulse Ox 100 Oxygen Delivery Method Room Air <Dr. Donn Mackey DO - Last Filed: 09/15/23 14:39> Physical Exam Const Vital Signs: 09/15/23 13:28 Temperature 97.2 F L Temperature Source Temporal Pulse Rate 49 L Respiratory Rate 20 H Blood Pressure 135/83 H Blood Pressure Mean 100 Pulse Ox 100 Oxygen Delivery Method Room Air [facility] <MARIELENA Tena - Last Filed: 09/15/23 14:35> [facility] Narrative Medical decision making narrative: Patient has left low back pain over the SI joint region. No trauma. She has no signs of radiculopathy or red flags concerning for cauda equina. MSPs and reflexes are intact. She has no history of trauma so I do not think imaging is indicated. She is describing symptoms of muscle spasm so I ordered IM Toradol and p.o. Valium. She states this responded well in the past with muscle relaxers so I prescribed naproxen and Flexeril and she was discharged in stable condition. <Dr. Donn Mackey DO - Last Filed: 09/15/23 14:39> [facility] Treatment and Re-Evaluation :: I have personally performed a face to face assessment of the patient and have reviewed the SUN Note. I performed a substantive portion of the visit including all aspects of the following. My lara findings include: History is 43-year-old female presenting to the emergency room with left SI joint pain. Patient states that she was seen in May for similar pain resolved with conservative treatments of anti-inflammatories. The patient states that over the weekend she was moving and painting. She states that she needs a knee replacement of the left knee and that leg is shorter. She believes that all that has contributed to this flareup. She does see a chiropractor every 2 weeks. She performs yoga once a week. She denies any recent fevers or infection. No IV drug use. No recent illnesses or immunosuppression. No known cancer. Exam is tender to palpation at the left SI joint. The sacrum appears rotated right. Limited range of motion secondary to pain. Neurologically intact. Medical Decison Making patient received a dose of Toradol and Valium. She will be discharged home on anti-inflammatories. Would recommend follow-up with her chiropractor and primary care. We talked about the need for possible physical therapy evaluation. Discharge Plan Triage Chief Complaint: Back ED Midlevel Provider: Arelis Kramer ED Provider: oDnn Mackey Dx/Rx/DC Orders Clinical Impression: Low back pain Instructions: Back Basics: A Healthy Spine Prescriptions: New naproxen [Naprosyn] 500 mg tablet 500 mg PO BID PRN (Reason: pain) Qty: 20 0RF cyclobenzaprine 10 mg tablet 10 mg PO TID PRN (Reason: Muscle Spasm) Qty: 20 0RF No Action cyanocobalamin (vitamin B-12) 1,000 mcg capsule 1,000 mcg PO DAILY ferrous sulfate 325 mg (65 mg iron) tablet 325 mg PO DAILY Children's Loratadine 5 mg tablet,chewable 5 mg PO QAM PRN (Reason: allergy symptoms) Hair,Skin and Nails Tablet 1 tab PO DAILY omega-3 fatty acids 1,000 mg capsule 1,000 mg PO DAILY cyclobenzaprine [cyclobenzaprine] 10 mg tablet 10 mg PO TID PRN (Reason: Muscle Spasm) Qty: 20 0RF naproxen 500 mg tablet 500 mg PO BID Qty: 14 0RF famotidine [Pepcid] 20 mg tablet 20 mg PO BID Qty: 10 0RF lisinopril-hydrochlorothiazide 20-12.5 mg tablet See Rx Instructions .ROUTE .COMPLEX Qty: 90 3RF Dose Instruction: take 1 tablet by mouth once daily Rx Instructions: take 1 tablet by mouth once daily Primary Care Provider: Néstor Garcia Referrals: Néstor Garcia MD [Primary Care Provider] - Activity Restrictions/Additional Instructions: Ice and take naproxen and the muscle relaxer as needed. You can also add [id number] Tylenol 1000 mg every 6 hours for additional pain control. Disposition Disposition: Home, Self Care
[2023-09-15] MEDS: diazePAM 5 MG Tablet 2.5 MG PO (13:56)
[2023-09-15] MEDS: Ketorolac 30 MG/ML Syringe IM (13:56)
== END 2023-09-15 14:50 | disposition home or self-care (01) ==
LOC: ED 14:47
PROVIDERS: Emergency Provider Emergency Medicine; PCP Family Medicine; Visit Provider Emergency Medicine
DX: M54.50 Low back pain, unspecified (principal); I10 Essential (primary) hypertension; Z79.899 Other long term (current) drug therapy; K21.9 Gastro-esophageal reflux disease without esophagitis; Z90.710 Acquired absence of both cervix and uterus; Z98.51 Tubal ligation status; X58.XXXA Exposure to other specified factors, initial encounter; Y93.89 Activity, other specified
CPT/HCPCS: 96372; 99282

== ENCOUNTER 2024-02-19 16:00 | Outpatient (RCR) | payer OTHER, SELFPAY ==
--- NOTE | 2024-01-15 11:07 | HP.PTEVAL ---
Patient's Visit Information Visit Information Visit Information: DOMINGO CORONA is a 43 year old F referred to Physical Therapy by Dr. Mario Loera MD with a diagnosis of RIGHT TKR. Date of Evaluation: 01/15/24 Physical Therapist: Emanuel Salazar, PT, Cert MDT, OCS Visit Plan Frequency: 2x /Week Duration: 6 Weeks Plan: S/P TKR 12/28/23 SEE PROTOCOL FOR TKR AND FOLLOW PT INTERVENTION GAIT /BALANCE TRAINING ,ROM EX'S KNEE,STRETCHING ,PRES QUADS/HAMS/ HIP ,AND FUNCTIONAL STRENGTHENING Subjective Subjective: This 43 y/o female presents to physical therapy with s/p right TKR on December 27 at [facility] in [place] done DR Connell . Patient d/c to to home DOS with FWW. Patient had [facility] PT 3x week for 7 visits. Patient progressed to cane this past weekend. Patient seen last Thursday . Patient had one incident pulled knee. Patient did have x-ray looked. Patient has h/o multiple knee surgery right knee x4 with ACL reconstruction many years in . Patient has limitations with gait ,stairs and return to work . Patient edema is better and has been using ice. Patient has HEP at home. Patient lives in 2 story with 4 steps with no rail and 16 steps to 2nd floor with bed and Tube/shower. Patient does bathing dressing. Patient spouse meza cooking and cleaning. Patient has oxycodone and muscle relaxer. Denies paresthesia/tingling -. Patient GOAL return to prior level of function and RTW and walk normal. Patient to RTD today. . 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 Pain Right Knee: Pain Intensity (Out of 10): 1 Pain Intensity Range: 10 Objective Objective: POSTURE: mild forward posture right knee slightly flexed GAIT: ambulates with cane with 2 point pattern mild decrease stance time right knee slightly flexed NEURO: denies paresthesia/tingling INCISION: well approximate dressing intact GIRTH PATELLA : 49.0 cm2 GIRTH 6 suprapatellar: 48.9 CM AROM: 5-80 degrees supine knee flexion MMT: (peak force) quads 12.3 ,hamstrings 11.9 STAIRS: one step at time with cane AROM : supine knee flexion 5-80 degrees Balance/Special Test Scores Lower Extremity Functional Score: 22 WOMAC Total Score: 35 WOMAC Percentatge: 58.3400 Goals Goal 1:: I with HEP for TKR Goal Time Frame: 4-6 Weeks Goal 2:: Patient to ambulate with reciprocal pattern with normal jovani and TUG Score below 10 Goal Time Frame: 4-6 Weeks Goal 3:: Patient to improve AROM supine knee flexion 0-110 degrees to improve stairs Goal Time Frame: 4-6 Weeks Goal 4:: Patient to improve peak force quads/hamstrings by 10-15 # to increase function . Goal Time Frame: 4-6 Weeks Goal 5:: Patient to improve WOMAC score by 10-15 points to improve function. Goal Time Frame: 4-6 Weeks Goal 6:: Patient to improve LFES score by 10-15 mins to improve QOL Goal Time Frame: 4-6 Weeks Rehabilitation Potential Physical Therapy Diagnosis: This patient underwent s/p TKR on 12/27 with decrease ROM ,strength quads/hams ,gait ,stairs and RTW thus benefit from skilled PT Rehabilitation Potential: Good Anticipated Interventions Patient/Client Instruction: Educate patient on: Condition and Plan of Care For the Purpose of:: To decrease pain, To increase ROM, To improve muscle performance and motor function, To improve ability to perform ADL's, To increase tolerance to activity/condition/position, To improve ability of physical actions for home/community/work/leisure, To improve health of tissue, To decrease soft tissue restriction, To increase flexibility/ROM, To improve endurance and To improve balance Therapeutic Exercise to Include: Strength training, Postural training, Flexibilty training and Active ROM Comment: QUADS/HAMS/HIP For the Purpose of:: To decrease pain, To decrease swelling/inflammation, To increase ROM, To improve muscle performance and motor function, To improve ability to perform ADL's, To increase tolerance to activity/condition/position, To improve ability of physical actions for home/community/work/leisure, To improve gait and locomotor functions, To improve health of tissue, To decrease soft tissue restriction, To increase flexibility/ROM, To improve endurance and To improve balance Text: Thank you for the opportunity to evaluate your patient. For Medicare and Medicare HMO plans, please review the plan of care and approve it. It will need to be FAXED BACK to us at [phone] for Medicare purposes. For Medicare only, by signing this I certify the plan of care. Please let me know if there are questions or concerns regarding this plan of care. Physician Signature: Date:
--- NOTE | 2024-05-30 14:04 | HP.PT.NRP ---
Patient Information Patient Information: DOMINGO CORONA was seen in my office for initial evaluation on 01/15/24. The following Plan of Care was established for this patient: POC Established Initial Frequency: 2x /Week Initial Duration: 6 Weeks Anticipated Interventions Patient/Client Instruction: Educate patient on: Condition and Plan of Care For the Purpose of:: To decrease pain, To increase ROM, To improve muscle performance and motor function, To improve ability to perform ADL's, To increase tolerance to activity/condition/position, To improve ability of physical actions for home/community/work/leisure, To improve health of tissue, To decrease soft tissue restriction, To increase flexibility/ROM, To improve endurance and To improve balance Therapeutic Exercise to Include: Strength training, Postural training, Flexibilty training and Active ROM For the Purpose of:: To decrease pain, To decrease swelling/inflammation, To increase ROM, To improve muscle performance and motor function, To improve ability to perform ADL's, To increase tolerance to activity/condition/position, To improve ability of physical actions for home/community/work/leisure, To improve gait and locomotor functions, To improve health of tissue, To decrease soft tissue restriction, To increase flexibility/ROM, To improve endurance and To improve balance Last Seen Last Seen: This patient was last seen in our office . Pertinent comments regarding their Physical therapy will appear below: Patient was seen for PT for TKR focusing on ROM and strengthening thus d/c At this point I will be discontinuing this patient from physical therapy. I would be happy to see this patient again in the future if found appropriate by the physician. Thank you! Emanuel Salazar, PT, Cert MDT, OCS Balance/Gait/Functional tests Balance/Special Test Scores Lower Extremity Functional Score: 22 TUG Test Time Seconds: 10.2 Tug Test: <20 sec.=mostly independent WOMAC Total Score: 35 WOMAC Percentage: 58.3400
== END 2024-02-19 19:00 | disposition home or self-care (01) ==
LOC: PT 16:00
PROVIDERS: PCP Family Medicine; Referring Provider Orthopaedic Surgery; Visit Provider Orthopaedic Surgery
DX: Z96.651 Presence of right artificial knee joint (principal)
CPT/HCPCS: 97016; 97110; 97140; 97162

== ENCOUNTER → 2024-08-06 | Outpatient (CLI) | payer OTHER, SELFPAY ==
[2024-08-06 07:20] LABS: Bacteria 0 SEEN /hpf (None Seen); Mucous, Urine 0 SEEN /hpf (<or=2+); Red Blood Cells-Urine 0 SEEN /hpf (0-5); White Blood Cells 0 SEEN /hpf (0-5)
[2024-08-06 07:55] LABS: Absolute Neutrophil Count 3.6 X10^3/uL (2.0-7.7); Basophil# 0.03 X10^3/uL; Basophil% 0.5 % (0-1); Eosinophil# 0.13 X10^3/uL; Eosinophils% 2.1 % (0-5); Hemoglobin 13.2 g/dL (12.0-15.0); Lymphocyte % 34.7 % (19-41); Mean Corp Hgb Conc 33.8 g/dL (32-36); Mean Corpuscular Hgb 28.7 pg (27.0-32.0); Mean Corpuscular Volume 84.8 fL (81-99); Mean Platelet Vol. 10.4 fl (6.2-12.0); Monocyte# 0.37 X10^3/uL; Monocyte% 5.8 % (0-10); NRBC Flagged by Analyzer 0 % (0-5); Neutrophil % 56.7 % (47-70); Platelet Count 240 K/mm3 (150-450); RBC Distribution Width CV 11.9 % (11.6-14.6); RBC Distribution Width SD 36.6 fl (35.1-43.9); White Blood Count 6.3 K/mm3 (4.4-11.0)
[2024-08-06 08:19] LABS: Color, Urine Yellow (Yellow); Glucose, Dipstick Normal (Normal); Ketone-Dipstick Negative (Negative); Leukocyte Esterase-Dipstick Negative /ul (Negative); Nitrite-Dipstick Negative (Negative); Occult Blood-Urine 10 /ul (Negative); Protein-Dipstick 30 mg/dl (Negative); Urine Bilirubin Dipstick Negative (Negative); Urine Clarity Clear (Clear); Urine Urobilinogen Normal (Normal)
[2024-08-06 08:33] LABS: Squamous Epithelial Cells - UA 5-10 SEEN /hpf (5-10)
[2024-08-06 10:21] LABS: ALB/GLOB Ratio 1.1 RATIO (0.9-2.4); AST(SGOT) 17 U/L (15-37); Alanine Aminotransfer ALT/SGPT 19 U/L (13-56); Albumin, Serum 3.7 g/dL (3.2-5.0); Alkaline Phosphatase 44 U/L (45-117); Anion Gap 6 (5-15); BUN 12 mg/dL (7-18); BUN/Creat Ratio 17.3 RATIO (10-20); Chloride 108 mmol/L (98-107); Cholesterol 149 mg/dL (200); EST Glomerular Filtration Rate 98 mL/min (>60); Est Glom Filt Rate - Afr Amer 119 mL/min (>60); Globulin 3.3 g/dL (2.2-4.2); Glucose 90 mg/dL (74-106); High Density Lipoprotein 77 mg/dL; Magnesium 1.7 mg/dL (1.6-2.6); Sodium Level 138 mmol/L (136-145); Triglycerides 49 mg/dL; Very Low Density Lipoprotein 10 mg/dL (5-40)
== END | disposition home or self-care (01) ==
LOC: LAB 07:12
PROVIDERS: PCP Family Medicine; Referring Provider Family Medicine; Visit Provider Family Medicine
DX: I10 Essential (primary) hypertension (principal)
CPT/HCPCS: 80053; 80061; 81001; 83735; 84443; 85025

== ENCOUNTER → 2024-08-11 | Outpatient (CLI) | payer OTHER, SELFPAY ==
--- NOTE | 2024-08-11 15:59 | BI_ITS ---
MAMMOGRAPHY - BILATERAL SCREENING REASON FOR EXAM: Female, 44 years old. Routine annual screening examination. PERTINENT HISTORY: Non-contributory. History of bilateral breast implants. TECHNIQUE: Digital bilateral breast morales (3D mammographic acquisition) in the CC and MLO projections. 2-D mediolateral oblique (MLO) and craniocaudad (CC) views of both breasts were obtained. CAD: Full Field Digital Mammography with Computer Added Detection was performed. COMPARISON: Comparison is made with prior study dated February 10, 2023. FINDINGS: Breast Composition: The breasts are extremely dense, which lowers the sensitivity of mammography. There is a 5.8 mm x 6.3 mm nodular density in the deep lateral aspect of the left breast. Correlation with ultrasound is recommended.. No other significant abnormalities are identified. BI/SCRN MAMM (CAD)W/MORALES BILAT IMPRESSION: 5.8 mm x 6.3 mm well-defined nodular density in the deep central lateral aspect of the left breast at the 3:00 position. Correlation with ultrasound is recommended. ASSESSMENT CATEGORY: BIRADS Category 0: Incomplete. Need additional imaging evaluation. A letter regarding these results will be sent to the patient by the facility within 30 days. Approximately 10% of breast cancers are not detected by mammography. A normal mammogram should not delay biopsy of a clinically suspicious abnormality. [id number] Electronically Signed: Cas Estrada MD at 8:35 EDT ,
== END | disposition home or self-care (01) ==
LOC: OPBI 15:59
PROVIDERS: PCP Family Medicine; Referring Provider Family Medicine; Visit Provider Family Medicine
DX: Z12.31 Encounter for screening mammogram for malignant neoplasm of breast (principal)
CPT/HCPCS: 77063; 77067

== ENCOUNTER 2024-08-16 12:29 | Outpatient (CLI) | payer OTHER, SELFPAY ==
--- NOTE | 2024-08-16 12:34 | US_ITS ---
STUDY: ULTRASOUND BREAST - LEFT REASON FOR EXAM: Female, 44 years old. Abnormal screening mammogram. TECHNIQUE: Axial and longitudinal images of the LEFT breast were performed with a high resolution ultrasound transducer. # OF IMAGES: 1 COMPARISON: Comparison is made with prior mammogram dated August 11, 2024. FINDINGS: LEFT Breast: The plantar aspect of the left breast was examined with ultrasound. The mammographic abnormality corresponds to a 7 mm x 7 mm x 3 mm benign-appearing lymph node. US/Breast Limited Unilateral IMPRESSION: The mammographic abnormality corresponds to 7 mm x 7 mm x 3 mm lymph node. Routine annual mammographic follow-up recommended. ASSESSMENT CATEGORY: BIRADS Category 2: Benign. A letter regarding these results will be sent to the patient by the facility within 30 days. Electronically Signed: Cas Estrada MD at 12:17 EDT ,
== END 2024-08-16 23:59 | disposition home or self-care (01) ==
PROVIDERS: PCP Family Medicine; Referring Provider Family Medicine; Visit Provider Family Medicine
DX: N63.20 Unspecified lump in the left breast, unspecified quadrant (principal)
CPT/HCPCS: 76642

== ENCOUNTER → 2024-11-17 | Outpatient (CLI) | payer OTHER, SELFPAY ==
[2024-11-17 08:34] LABS: Bacteria 0 SEEN /hpf (None Seen); Mucous, Urine 0 SEEN /hpf (<or=2+); Red Blood Cells-Urine 0 SEEN /hpf (0-5); Squamous Epithelial Cells - UA 0 SEEN /hpf (5-10); White Blood Cells 0 SEEN /hpf (0-5)
[2024-11-17 09:17] LABS: Color, Urine Yellow (Yellow); Glucose, Dipstick Normal (Normal); Ketone-Dipstick Negative (Negative); Leukocyte Esterase-Dipstick Negative /ul (Negative); Nitrite-Dipstick Negative (Negative); Occult Blood-Urine 10 /ul (Negative); Protein-Dipstick Negative (Negative); Urine Bilirubin Dipstick Negative (Negative); Urine Clarity Clear (Clear); Urine Urobilinogen Normal (Normal)
[2024-11-17 09:32] LABS: Cholesterol 171 mg/dL (200); Creatinine, Serum 0.72 mg/dL (0.55-1.02); EST Glomerular Filtration Rate 94 mL/min (>60); Est Glom Filt Rate - Afr Amer 113 mL/min (>60); Glucose 85 mg/dL (74-106); High Density Lipoprotein 78 mg/dL; Phosphorus 3.1 mg/dL (2.5-4.9); Triglycerides 43 mg/dL; Very Low Density Lipoprotein 9 mg/dL (5-40)
[2024-11-17 09:34] LABS: Hemoglobin A1c 5.2 % (3.8-5.6)
[2024-11-17 11:23] LABS: Microalbumin,Random Urine 13.4 mg/L (NO RANGE EST.)
== END | disposition home or self-care (01) ==
PROVIDERS: PCP Family Medicine
DX: Z52.4 Kidney donor (principal)
CPT/HCPCS: 36415; 80061; 81001; 82043; 82565; 82947; 83036; 84100; 86900; 86901

== ENCOUNTER → 2025-07-13 | Outpatient (CLI) | payer OTHER, SELFPAY ==
[2025-07-13 17:02] LABS: Amylase 49 U/L (28-100); CRP < 3.00 mg/L (0.0-3.0); Lipase 41 U/L (13-75)
[2025-07-19 12:09] LABS: ACCA 10 units (0-90); ALCA 8 units (0-60); AMCA 24 units (0-100); Cytoplasmic Ab (C-ANCA) <1:20 titer (Neg:<1:20); Gastrin, Serum 41 pg/mL (0-115); Immunoglobulin A 161 mg/dL (87-352); Immunoglobulin G 1072 mg/dL (586-1602); Immunoglobulin M 78 mg/dL (26-217); Perinuclear Ab (P-ANCA) <1:20 titer (Neg:<1:20)
[2025-07-19 17:08] LABS: Anti-Chromatin <0.2 AI (0.0-0.9); Anti-Jo <0.2 AI (0.0-0.9); Anti-dsDNA Ab 1 IU/mL (0-9); Egg, Whole <0.10 kU/L (Class 0); Mussels <0.10 kU/L (Class 0); SJOGREN'S Anti-SS-A test 0.2 AI (0.0-0.9); SJOGREN'S Anti-SS-B test < 0.2 AI (0.0-0.9)
== END | disposition home or self-care (01) ==
PROVIDERS: PCP Family Medicine; Referring Provider Internal Medicine Gastroenterology; Visit Provider Internal Medicine Gastroenterology
DX: R10.9 Unspecified abdominal pain (principal); K58.2 Mixed irritable bowel syndrome
CPT/HCPCS: 36415; 82150; 82784; 82785; 82941; 83516; 83690; 85652; 86003; 86005; 86036; 86037; 86140; 86225; 86235; 86255; 86671

== ENCOUNTER → 2025-07-19 | Outpatient (CLI) | payer SELFPAY ==
--- OUTSIDE RECORDS SUMMARY | 2025-07-19 06:58 | XMS RPT_ITS | CCD ---
Author Organization [facility] Care Team Providers Care Cash Controller Name Role Phone Cristine Andrew Unavailable Unavailable Cristine Andrew Unavailable Unavailable Bg Fan Unavailable Unavailable Bg Fan Unavailable Unavailable Quiana Warren Primary Care Provider [phone] SHELTON WEEKS Attending Unavail able QUIANA WARREN Primary Care Unavailable Osmar Garcia Primary Care Provider Mary Resendiz Primary Care Provider Osmar Garcia Primary Care Provider Osmar Garcia Primary Care Provider Osmar Garcia MD Primary Care Provider Osmar Garcia MD Primary Care Provide r Osmar Garcia MD Primary Care Provide r Dr. Fede Ellison Primary Care Provider Dr. Fede Ellison Referring Provider Vik, Dr. Jane Attending Provider Vik, Dr. Jane Referring Provider Vik, Dr. Jane Other Provider Dr. Jordin Diop Attending Provider Dr. Vu Schaefer Attending Provider Dr. Fede Ellison Primary Care Provider Dr. Fede Ellison Referring Provider Vik, Dr. Jane Attending Provider Vik, Dr. Jane Referring Provider Vik, Dr. Jane Other Provider Dr. Jordin Diop Attending Provider Dr. Vu Schaefer Attending Provider Dr. Nupur Garcia Primary Care Provider Dr. Antolin Morales Attending Provider Jose SCHUSETR, Nupur Paul Primary Care Provider Osmar Garcia MD [facility] Provide r Jose SCHUSTER, Nupur Paul Primary Care Provider MATTY PHOENIX Attending Unavailable JOSE, NUPUR Primary Care Unavailable LIZETT MATTY Admitting Unavailable LIZETTMATTY LARKIN Attending Unavailable NUPUR GARCIA Primary Care Unavailable BRITNEY MONTES Referring Unavailable JOSE, NUPUR Primary Care Unavailable BRITNEY MONTES Attending Unavailable BRITNEY MONTES Referring Unavailable JOSE, NUPUR Primary Care Unavailable BRITNEY MONTES Referring Unavailable JOSE, NUPUR Primary Care Unavailable LIZETT, MATTY Referring Unavailable JOSE, NUPUR Primary Care Unavailable MATTY PHOENIX Attending Unavailable NUPUR GARCIA Primary Care Unavailable Dr. Nupur Garcia Primary Care Provider [phone] Dr. Nupur Garcia Referring Provider Dr. Riana Madden Attending Provider [phone]([facility])[phone] Nupur Garcia Primary Care Provider [phone] Dr. Nupur Garcia Referring Provider Dr. Riana Madden Attending Provider Jose SCHUSTER, Nupur Primary Care Provider NUPUR GARCIA Primary Care Unavailable MELODY FUENTES Admitting Unavailab cindy GARCIA, NUPUR Primary Care Unavailable MELODY FUENTES Attending Unavailab MELODY Waldron Referring Unavailab le TAMMY SILVA Referring Unavailable TAMMY SILVA Admitting Unavailable NUPUR GARCIA Primary Care Unavailable GEOVANNI ELAM Attending Unavailable SILVATAMMY DILLON Referring Unavailable SILVATAMMY Admitting Unavailable SCHINNER, NUPUR Primary Care Unavailable GEOVANNI ELAM Attending Unavailable SILVA, TAMMY LOUIS Admitting Unavailable SCHINNER, NUPUR Primary Care Unavailable SILVA, TAMMY LOUIS Referring Unavailable GEOVANNI ELAM Attending Unavailable MELODY FUENTES Referring Unavailab le SCHINJOSTIN, NUPUR Primary Care Unavailable MELODY FUENTES Admitting Unavailab MELODY Waldron Attending Unavailab le SILVA, TAMMY LOUIS Admitting Unavailable SCHINNER, NUPUR Primary Care Unavailable SILVA, TAMMY LOUIS Referring Unavailable TRISH ADHIKARI Attending Unavailable SCHINJOSTIN, NUPUR Primary Care Unavailable SILVA, TAMMY LOUIS Referring Unavailable SILVA, TAMMY LOUIS Admitting Unavailable GEOVANNI ELAM Attending Unavailable JOSE, NUPUR Primary Care Unavailable MELODY FUENTES Attending Unavailab le JOSE, NUPUR Primary Care Unavailable MELODY FUENTES Attending Unavailab MELODY Waldron Referring Unavailab MELODY Waldron Admitting Unavailab le SCHKAREN, NUPUR Primary Care Unavailable MELODY FUENTES Attending Unavailab cindy GARCIA, NUPUR Primary Care Unavailable MELODY FUENTES Referring Unavailab le GINA, MELODY UREÑA Admitting Unavailab le SCHKAREN, NUPUR Primary Care Unavailable CORRINE HELLER Attending Unavailable MELODY FUENTES Attending Unavailab le SCHKAREN, NUPUR Primary Care Unavailable SCHINJOSTIN, NUPUR Primary Care Unavailable SILVATAMMY RUBIN Admitting Unavailable SILVATAMMY Referring Unavailable SCHINJOSTIN, NUPUR Primary Care Unavailable TAMMY SILVA Attending Unavailable JOSE, NUPUR Primary Care Unavailable MELODY FUENTES Attending Unavailab cindy SCHKAREN, NUPUR Primary Care Unavailable MELODY FUENTES Attending Unavailab MELODY Waldron Referring Unavailab le SCHKAREN, NUPUR Primary Care Unavailable MELODY FUENTES Admitting Unavailab le Schkaren, Nupur E Primary Care Unavailable Jose, Nupur Paul Attending Unavailable Jose, Nupur E Referring Unavailable REZA HOPE Attending Unavailab le Schkaren, Nupur Paul Primary Care Unavailable Friend, Rob Referring Unavailable Jose, Nupur E Primary Care Unavailable Juliette, Rob Attending Unavailable Riana Madden Attending Unavailable Nupur Garcia Referring Unavailable Nupur Garcia Primary Care Unavailable Riana Madden Attending Unavailable Nupur Garcia Referring Unavailable Nupur Garcia Primary Care Unavailable Rob Segovia Attending Unavailable Nupur Garcia Referring Unavailable Nupur Garcia Attending Unavailable Nupur Garcia Referring Unavailable Nupur Garcia Primary Care Unavailable Nupur Garcia Primary Care Unavailable Nupur Garcia Attending Unavailable Nupur Garcia Referring Unavailable Jose SCHUSTER, Dr. Nupur Paul Referring Provider [phone] Rob GONZALEZ Attending Physician [phone] Dr. Nupur Garcia MD Primary Care Physician Friend Dr. Rob GONZALEZ Referring Provider Medications Current Medications Medication Drug Class(es) Dates Sig (Normalized) Sig (Original) acetaminophen 325 mg oral tablet (4 sources) Start: 12-28-2023 End: 01-07-2024 take 2 tablets by mouth every four hours acetaminophen (TYLENOL) 325 MG tablet Take 2 (two) tablets (650 mg total) by mouth every 4 (four) hours while awake for 10 days . 30 tablet 0 12/28/2023 01/07/2024 Active Start: 03-22-2019 End: 03-23-2019 take 1 tablet by mouth every four hours as needed 650 mg, Oral, Every 4 hours PRN, mild pain, fever 100.4 F or greater, headaches, Starting Thu03/22/19 at 1122 aspirin 325 mg delayed release oral tablet (9 sources) Platelet Aggregation Inhibitor, Nonsteroidal Anti-inflammatory Drug Start: 12-28-2023 End: 01-27-2024 take 1 tablet by mouth twice daily aspirin 325 MG EC tablet Take 1 (one) tablet (325 mg total) by mouth 2 (two) times a day . 60 tablet 0 12/28/2023 01/27/2024 Active Start: 10-07-2019 End: 11-06-2019 take 1 tablet by mouth twice daily aspirin 81 MG EC tablet Take 1 (one) tablet (81 mg total) by mouth 2 (two) times a day . 60 tablet 0 10/07/2019 11/06/2019 Active Start: 03-22-2019 End: 03-23-2019 take 81 mg by mouth once daily 81 mg, Oral, Daily, Fir st dose on Thu03/22/19 at 1215 cephalexin 500 mg oral capsule (2 sources) Cephalosporin Antibacterial Start: 12-28-2023 End: 01-04-2024 take 1 capsule by mouth three times daily cephALEXin (KEFLEX) 500 MG capsule Take 1 (one) capsule (500 mg total) by mouth 3 (three) times a day for 7 days . 21 capsule 0 12/28/2023 01/04/2024 Active cyclobenzaprine hydrochloride 5 mg oral tablet (15 sources) Muscle Relaxant Start: 04-22-2024 End: 05-02-2024 take 2 tablets by mouth three times daily as needed for muscle spasms cyclobenzaprine (FLEXERIL) 5 MG tablet Take 2 (two) tablets (10 mg total) by mouth 3 (three) times a day as needed for muscle spasms . 30 tablet 04/22/2024 05/02/2024 Active Start: 06-02-2023 End: 07-13-2025 take 1 tablet by mouth three times daily as needed for muscle spasms cyclobenzaprine (FLEXERIL) 10 MG tablet Take 1 (one) tablet (10 mg total) by mouth 3 (three) times a day as needed for muscle spasms . 30 tablet 0 01/16/2024 01/26/2024 Active dicyclomine hydrochloride 20 mg oral tablet (4 sources) Anticholinergic Start: 03-27-2023 End: 05-26-2023 take 1 tablet by mouth four times daily before mealtime dicyclomine (Bentyl) 20 MG tablet Take 1 tablet (20 mg) by mouth 4 times daily (before meals and nightly). 120 tablet 1 03/27/2023 05/26/2023 Active docosahexaenoic acid 120 mg / eicosapentaenoic acid 180 mg oral capsule (8 sources) End: 12-10-2020 take 1 capsule by mouth once daily Ezel-3 Fatty Acids (Fish Oil) 1000 MG capsule Take 1 capsule by mouth daily. 0 Active ketorolac tromethamine 10 mg oral tablet (1 source) Nonsteroidal Anti-inflammatory Drug, Cyclooxygenase Inhibitor Start: 02-06-2021 take 1 tablet by mouth every four hours as needed ketorolac 10 MG tablet Take 1 tablet by mouth every 4 hours as needed. Max of 40mg/day. Max of 5 days. 15 tablet 0 02/06/2021 Active Lactobacillus Combination No.4 (Probiotic) 3 billion cell capsule (1 source) Start: 07-13-2025 take 3 capsules by mouth once daily lactulose 667 mg/ml oral solution (2 sources) Osmotic Laxative Start: 12-17-2020 take 60 mL by mouth twice daily lactulose 10 GM/15ML Solution oral solution Indications: Other constipation Take 60 mL by mouth 2 times daily. 500 mL 11 12/17/2020 Active linaclotide 0.145 mg oral capsule (1 source) Guanylate Cyclase-C Agonist Start: 01-01-2021 take 1 capsule by mouth once daily linaCLOtide (Linzess) 145 MCG capsule Indications: Other constipation Take 1 capsule by mouth daily. 30 capsule 11 01/01/2021 Active lubiprostone 0.024 mg oral capsule (1 source) Chloride Channel Activator Start: 01-07-2021 take 1 capsule by mouth twice daily lubiprostone (Amitiza) 24 MCG capsule Indications: Other constipation Take 1 capsule by mouth 2 times daily. 60 capsule 11 01/07/2021 Active Magnesium (1 source) Start: 07-13-2025 meloxicam 15 mg oral tablet (20 sources) Nonsteroidal Anti-inflammatory Drug Start: 04-22-2024 End: 05-22-2024 take 1 tablet by mouth once daily meloxicam (MOBIC) 15 MG tablet Take 1 (one) tablet (15 mg total) by mouth daily . 30 tablet 04/22/2024 05/22/2024 Active Start: 03-04-2023 End: 03-03-2024 take 1 tablet by mouth once daily meloxicam (MOBIC) 15 MG tablet Take 1 (one) tablet (15 mg total) by mouth daily . 30 tablet 11 03/04/2023 03/03/2024 Active Start: 12-31-2021 End: 12-31-2022 take 1 tablet by mouth once daily meloxicam (MOBIC) 15 MG tablet Take 1 (one) tablet (15 mg total) by mouth daily . 30 tablet 11 12/31/2021 12/31/2022 Active Start: 12-29-2018 End: 12-10-2020 take 1 tablet by mouth once daily in the morning as needed meloxicam 15 MG Tab tablet Take 15 mg by mouth Every morning as needed. 0 12/29/2018 12/10/2020 Discontinued methylPREDNISolone (3 sources) Corticosteroid Start: 04-22-2024 methylPREDNISolone (MEDROL DOSEPACK) 4 mg tablet follow package directions . 21 tablet 04/22/2024 Active Multiple Vitamin (ONE-DAILY MULTIVITAMINS) Tab (8 sources) take 1 tablet by mouth once daily at dinner Multiple Vitamin (ONE-DAILY MULTIVITAMINS) Tab Take 1 tablet by mouth Daily (with dinner). 0 Active Multiple Vitamins-Minerals (HAIR SKIN & NAILS ADVANCED PO) (5 sources) Multiple Vitamins-Minerals (HAIR SKIN & NAILS ADVANCED PO) Take by mouth. 0 Active Multiple Vitamins-Minerals (Hair/Skin/Nails) tablet (9 sources) Multiple Vitamins-Minerals (Hair/Skin/Nails) tablet Take by mouth. 0 Active Multiple Vitamins-Minerals (multivitamin with minerals) tablet (9 sources) take 1 tablet by mouth once daily Multiple Vitamins-Minerals (multivitamin with minerals) tablet Take 1 tablet by mouth daily. 0 Active multivitamin (multivitamin) per tablet (11 sources) take 1 tablet by mouth once daily multivitamin (multivitamin) per tablet Take 1 tablet by mouth daily . 0 Active Multivitamin (One Daily Multivitamin) tablet (1 source) Start: 07-07-2022 take 1 tablet by mouth once daily at dinner Multivitamin (One Daily Multivitamin) tablet Active 1 TABLET PO DAILY July 07, 2022 12:00am with dinner multivitamin (THERAGRAN) per tablet (20 sources) take 1 tablet by mouth once daily multivitamin (THERAGRAN) per tablet Take 1 (one) tablet by mouth daily . Active take 1 tablet by mouth once praveena y multivitamin (THERAGRAN) per tablet Take 1 (one) tablet by mouth daily . 0 Active take 1 tablet by mouth once praveena y multivitamin (THERAGRAN) per tablet Take 1 tablet by mouth daily . 0 Active Multivitamin With Minerals ( Hair,Skin And Nails) tablet (14 sources) Start: 07-07-2022 Start: 07-07-2022 take 1 tablet by latrell once daily Multivitamin With Minerals (Hair,Skin And Nails) tablet Active 1 TABLET PO DAILY July 06, 2022 11:00pm Start: 07-07-2022 take 1 tablet by once daily Multivitamin With Minerals (Hair,Skin And Nails) tablet Active 1 TABLET PO DAILY July 07, 2022 12:00am multivitamin with minerals tablet (2 sources) take 1 tablet by mouth once daily multivitamin with minerals tablet Take 1 (one) tablet by mouth daily . 0 Active omega-3 acid ethyl esters (jail) 1000 mg oral capsule (1 source) take 1 capsule by mouth once daily at dinner Ezel-3 1000 MG Cap Take 1 capsule by mouth Daily (with dinner). 0 Active Ezel-3 Fatty Acids (13 sources) Start: 07-07-2022 take 1000 mg by mouth once daily Ezel-3 Fatty Acids Active 1000 MG PO DAILY July 06, 2022 11:00pm Start: 07-07-2022 take 1000 mg by mouth once jinny ly Ezel-3 Fatty Acids Active 1000 MG PO DAILY July 07, 2022 12:00am oxyCODONE hydrochloride 5 mg oral tablet (8 sources) Opioid Agonist Start: 02-12-2024 End: 02-19-2024 oxyCODONE (ROXICODONE) 5 MG immediate release tablet Indications: Status post total right knee replacement Take 1 (one) tablet (5 mg total) by mouth every 8 (eight) hours as needed for pain (Days supply per fill: 7) . 21 tablet 0 02/12/2024 02/19/2024 Active Start: 01-16-2024 End: 01-23-2024 take 1 tablet by mouth every four hours as needed for pain oxyCODONE (ROXICODONE) 5 MG immediate release tablet Indications: Status post total right knee replacement Take 1 (one) tablet (5 mg total) by mouth every 4 (four) hours as needed for pain . 40 tablet 0 01/16/2024 01/23/2024 Active Start: 12-28-2023 End: 01-11-2024 oxyCODONE (ROXICODONE) 5 MG immediate release tablet Indications: S/P total knee arthroplasty, right Take 1 (one) tablet to 2 (two) tablets (5-10 mg total) by mouth every 4 (four) hours as needed (Days supply per fill: 7) . 40 tablet 0 01/04/2024 01/11/2024 Active pantoprazole 20 mg delayed release oral tablet (19 sources) Proton Pump Inhibitor Start: 12-29-2023 End: 01-28-2024 take 1 tablet by mouth once daily pantoprazole (PROTONIX) 20 MG tablet Take 1 (one) tablet (20 mg total) by mouth daily Start: 12/29/23. 30 tablet 12/29/2023 Active Start: 12-03-2020 End: 10-17-2021 take 1 tablet by mouth once daily before breakfast pantoprazole [address] tablet DR Indications: Heartburn Take 1 tablet by mouth every morning before breakfast. 30 tablet 11 01/01/2021 10/17/2021 Discontinued Start: 12-03-2020 pantoprazole ( PROTONIX) injection 40 mg polyethylene glycol [id number] mg powder for oral solution (2 sources) Osmotic Laxative Start: 12-28-2023 End: 01-04-2024 polyethylene glycol (MIRALAX) 17 gram powder Take 17 (seventeen) g by mouth daily for 7 days . 7 packet 0 12/28/2023 01/04/2024 Active pregabalin 25 mg oral capsule (4 sources) Start: 06-04-2024 End: 06-11-2024 take 1 capsule by mouth three times daily pregabalin (Lyrica) 25 MG capsule Indications: Status post total right knee replacement Take 1 (one) capsule (25 mg total) by mouth 3 (three) times a day for 7 days . 21 capsule 06/04/2024 06/11/2024 Active Start: 04-22-2024 End: 04-29-2024 pregabalin (Lyrica) 25 MG ca psule Indications: Status post total right knee replacement Take 1 (one) capsule (25 mg total) by mouth 3 (three) times a day (Days supply per fill: 7) for 7 days . 21 capsule 04/22/2024 Active Probiotic Product (PROBIOTIC-10 PO) (5 sources) Probiotic Produc t (PROBIOTIC-10 PO) Take by mouth. 0 Active Zinc Acetate (1 source) Start: 07-13-2025 zinc gluconate 50 mg oral tablet (13 sources) take 1 tablet by mouth once daily zinc gluconate 50 mg tablet Take 1 (one) tablet (50 mg total) by mouth daily . Active Completed/Discontinued Medications Medication Drug Class(es) Dates Sig (Normalized) Sig (Original) acetaminophen 300 mg / codeine phosphate 30 mg oral tablet (3 sources) Opioid Agonist Start: 10-10-2019 End: 12-03-2020 acetaminophen-codei ne (Tylenol-Codeine #3) 300-30 mg per tablet Indications: S/P right knee arthroscopy 1-2 tabs q4-6 hours prn pain . 30 tablet 0 10/10/2019 12/03/2020 Discontinued (Error) Start: 10-07-2019 End: 10-11-2019 take 1 tablet by mouth once as needed for pain, then take 2 tablets by mouth every four hours as needed for pain acetaminophen-codeine (Tylenol-Codeine #3) 300-30 mg per tablet Indications: S/P arthroscopy of right knee Take 1 (one) tablet to 2 (two) tablets by mouth every 4 (four) hours as needed for pain 7 days . 20 tablet 0 10/07/2019 10/11/2019 Active acetaminophen 325 mg / HYDROcodone bitartrate 5 mg oral tablet (8 sources) Opioid Agonist Start: 06-02-2023 End: 08-06-2023 Hydrocodone-Acetaminophen 5- 325 mg tablet Discontinued 1 {tbl} PO EVERY 4 HOURS NEEDED as needed for Pain 15 2 0 June 02, 2023 August 06, 2023 3:46pm Back pain Dorsalgia, unspecified Start: 06-02-2023 End: 08-06-2023 take 1 tablet by mouth every four hours as needed Hydrocodone-Acetaminophen Discontinued 1 TABLET PO EVERY 4 HOURS NEEDED 15 2 June 02, 2023 August 06, 2023 2:46pm Start: 01-01-2021 End: 01-04-2021 take 1-2 tablets by mouth every four hours as needed hydroCODone-acetaminophen 5-325 MG table t Indications: Bright red rectal bleeding Take 1-2 tablets by mouth every 4 hours as needed for up to 3 days. 18 tablet 0 01/01/2021 Active acetaminophen 325 mg / oxyCODONE hydrochloride 5 mg oral tablet (2 sources) Opioid Agonist Start: 04-16-2021 End: 10-17-2021 take 1 tablet by mouth every four hours as needed for pain oxyCODONE-acetaminophen 5-325 MG per tablet Indications: S/P laparoscopic hysterectomy Take 1 tablet by mouth every 4 hours as needed for Moderate Pain for up to 3 days. 15 tablet 0 04/16/2021 10/17/2021 Discontinued amLODIPine 5 mg oral tablet (20 sources) Dihydropyridine Calcium Channel Reddy Start: 10-28-2021 End: 10-28-2022 take 2 tablets by mouth at bedtime amLODIPine (NORVASC) 5 MG tablet Take 2 (two) tablets (10 mg total) by mouth at bedtime . 30 tablet 1 10/28/2021 11/14/2021 Discontinued (Reorder) Start: 09-03-2021 End: 11-12-2023 take 1 tablet by mouth at bedtime Amlodipine 5 mg tablet Discontinued 5 mg PO AT BEDTIME July 07, 2022 12:00am July 09, 2022 3:14pm bisacodyl 5 mg delayed release oral tablet (1 source) Stimulant Laxative Start: 12-17-2020 End: 01-01-2021 bisacodyl (Dulcolax) [address] Indications: Generalized abdominal pain Take As written instructions given. 10 tablet 0 12/17/2020 01/01/2021 Discontinued (Stop Taking at Discharge) calcium chloride 0.0014 meq/ml / potassium chloride 0.004 meq/ml / sodium chloride 0.103 meq/ml / sodium lactate 0.028 meq/ml injectable solution (3 sources) Start: 01-01-2021 End: 01-01-2021 lactated ringers IV solution Start: 10-07-2019 End: 10-07-2019 take 100 mL intravenous route every hour 100 mL/hr, Intravenous, Continuous, Starting Thu10/07/19 at 1330, PACU (only) Start: 10-07-2019 End: 10-07-2019 lactated Ringers infusion celecoxib 100 mg oral capsule (1 source) Nonsteroidal Anti-inflammatory Drug Start: 06-18-2020 End: 12-03-2020 take 1 capsule by mouth once daily celecoxib (CeleBREX) 100 MG capsule Take 1 (one) capsule (100 mg total) by mouth daily . 30 capsule 2 06/18/2020 12/03/2020 Discontinued (Error) cholecalciferol 1000 unt oral tablet (2 sources) Vitamin D End: 01-17-2021 take 1 tablet by mouth once daily Vitamin D3 25 MCG (1000 UT) tablet Take 1,000 Units by mouth daily. 0 01/17/2021 Discontinued (Other (suppress cancel msg)) famotidine 20 mg oral tablet (4 sources) Histamine-2 Receptor Antagonist Start: 07-28-2023 End: 07-13-2025 take 1 tablet by mouth twice daily Famotidine (Pepcid) 20 mg tablet Discontinued 20 mg PO TWICE A DAY 10 0 July 28, 2023 12:00am July 13, 2025 1:50pm ferrous sulfate 325 mg oral tablet (20 sources) Start: 07-07-2022 End: 07-13-2025 take 1 tablet by mouth once daily Ferrous Sulfate 325 mg (65 mg iron) tablet Discontinued 325 mg PO DAILY July 07, 2022 12:00am July 13, 2025 1:50pm hydroCHLOROthiazide 12.5 mg / lisinopril 20 mg oral tablet (20 sources) Thiazide Diuretic, Angiotensin Converting Enzyme Inhibitor Start: 07-07-2022 End: 07-13-2025 take 1 tablet by mouth once daily Lisinopril-Gile chlorothiazide 20-12.5 mg tablet Discontinued 0 .ROUTE .COMPLEX 90 July 22, 2023 10:12am July 13, 2025 1:50pm take 1 tablet by mouth once daily Start: 07-07-2022 End: 07-22-2023 take 1 tablet by mouth once daily Lisinopril-Hydrochlorothiazide Discontin ued 1 TABLET PO DAILY 90 July 09, 2022 2:14pm July 22, 2023 9:12am Start: 08-08-2021 End: 02-15-2022 take 1 tablet by mouth once daily lisinopril-hydrochlorothiazide 20-12.5 M G per tablet Take 1 tablet by mouth daily. 90 tablet 1 01/16/2022 01/16/2022 Discontinued (Reorder) 1 ml HYDROmorphone hydrochloride 1 mg/ml injection (1 source) Opioid Agonist Start: 10-07-2019 End: 10-07-2019 0.5 mg, Intravenous, Every 5 min PRN, Pain, Starting Thu10/07/19 at 1232, For 6 doses, PACU (only) [] Give if fentanyl not effective or not ordered. [] Do not give more than 3 mg total. hyoscyamine sulfate 0.125 mg disintegrating oral tablet (1 source) Start: 01-01-2021 End: 01-01-2021 hyoscyamine (ANASPAZ) disintegrating tablet 0.125 mg iopamidol (Isovue-370) 76 % injection 75 mL (2 sources) Start: 04-10-2023 End: 04-10-2023 iopamidol (Isovue-370) 76 % injection 75 mL 4 ml labetalol hydrochloride 5 mg/ml cartridge (1 source) beta-Adrenergic Reddy Start: 10-07-2019 End: 10-07-2019 5 mg, Intravenous, Every 5 min PRN, SBP greater than 180 or DBP greater than 120, Starting Thu10/07/19 at 1232, For 4 doses, PACU (only) [] Do not give more than 20 mg total. [] Hold for HR less than 50. Lactobac no.41/Bifidobact no.7 (PROBIOTIC-10 ORAL) (13 sources) End: 12-10-2023 Lactobac no.41/Bifidobact no.7 (PROBIOTIC-10 ORAL) Take by mouth daily . 0 12/10/2023 Discontinued Lactobac no.41/B ifidobact no.7 (PROBIOTIC-10 ORAL) Take by mouth daily . 0 Active lactobacillus acidophilus [id number] unt oral capsule (14 sources) Start: 07-07-2022 End: 07-09-2022 take 10 capsules by mouth once daily Lactobacillus Acidophilus (Probiotic) 10 billion cell capsule Discontinued [id number] NMA PO DAILY July 07, 2022 12:00am July 09, 2022 2:43pm lidocaine viscous 2% 10 mL and maalox plus 30 mL (GI COCKTAIL) 40 mL solution (1 source) Start: 12-03-2020 End: 12-03-2020 lidocaine viscous 2% 10 mL and maalox plus 30 mL (GI COCKTAIL) 40 mL solution lisinopril 20 mg oral tablet (1 source) Angiotensin Converting Enzyme Inhibitor End: 11-14-2021 take 1 tablet by mouth once daily lisinopriL (PRINIVIL,ZESTRIL) 20 MG tablet Take 20 mg by mouth daily . 0 11/14/2021 Discontinued (Formulary change) loratadine 5 mg chewable tablet (20 sources) Start: 07-07-2022 End: 07-13-2025 take 1 tablet by mouth once daily in the morning as needed Loratadine (Children's Loratadine) 5 mg tablet,chewable Discontinued 5 mg PO EVERY MORNING as needed for allergy symptoms July 07, 2022 12:00am July 13, 2025 1:50pm Start: 07-07-2022 End: 09-03-2021 take 1 tablet by mouth once daily in the morning Loratadine (Children's Loratadine) 5 mg tablet,chewable Active 5 MG PO EVERY MORNING July 07, 2022 12:00am End: 12-10-2023 loratadine (CLARITIN) 5 mg c hewable tablet Chew and Swallow 1 (one) tablet (5 mg total) . 0 12/10/2023 Discontinued magnesium citrate 58.2 mg/ml oral solution (1 source) Start: 12-17-2020 End: 01-01-2021 magnesium citrate 1.745 GM/30ML Solution Indications: Generalized abdominal pain Take as written instructions 4 Bottle 0 12/17/2020 01/01/2021 Discontinued (Stop Taking at Discharge) magnesium sulfate 0.0277 meq/ml / potassium sulfate 0.0374 meq/ml / sodium sulfate 0.257 meq/ml oral solution (1 source) Start: 12-17-2020 End: 01-01-2021 sodium sulfate-potassium sulfate (Suprep Bowel Prep Kit) 17.5-3.13-1.6 GM/177ML Solution oral solution Indications: Generalized abdominal pain Suprep (mix as directed on box) and drink 2 16 oz glasses of water. 1 Bottle 0 12/17/2020 01/01/2021 Discontinued (Stop Taking at Discharge) Meperidine (1 source) Opioid Agonist Start: 10-07-2019 End: 10-07-2019 12.5 mg, Intravenous, Every 5 min PRN, shivering, Starting Thu10/07/19 at 1232, For 2 doses, PACU (only) Do not give more than 25 mg total. RESTRICTED to use in rigors OR pain management in patients with a documented opioid allergy. Please select this medication s indication. Rigors Multiple Vitamin (MULTI-VITAMIN DAILY PO) (2 sources) End: 12-10-2020 Multiple Vitamin (MULTI-VITAMIN DAILY PO) Take by mouth. 0 12/10/2020 Discontinued Multiple Vitamin (MULTI-VITAMIN DAILY PO) Take by mouth. 0 Active naloxone (NARCAN) injection 0.1 mg (1 source) Start: 10-07-2019 End: 10-07-2019 naloxone (NARCAN) injection 0.1 mg naproxen 500 mg oral tablet (7 sources) Nonsteroidal Anti-inflammatory Drug Start: 06-02-2023 End: 07-13-2025 take 1 tablet by mouth twice daily as needed for pain Naproxen (Naprosyn) 500 mg tablet Discontinued 500 mg PO TWICE A DAY as needed for pain 20 0 September 15, 2023 1:00am July 13, 2025 1:50pm Ezel-3 Fatty Acids 1,000 mg capsule (1 source) Start: 07-07-2022 End: 07-13-2025 take 1 capsule by mouth once daily Ezel-3 Fatty Acids 1,000 mg capsule Discontinued 1000 mg PO DAILY July 07, 2022 12:00am July 13, 2025 1:50pm omega-3 fatty acids-fish oil 340-1,000 mg cap (20 sources) End: 12-10-2023 take 1 capsule by mouth once daily omega-3 fatty acids-fish oil 340-1,000 mg cap Take 1 (one) capsule by mouth daily . 0 12/10/2023 Discontinued take 1 capsule by mouth once jinny ly omega-3 fatty acids-fish oil 340-1,000 mg cap Take 1 (one) capsule by mouth daily . 0 Active take 1 capsule by mouth once jinny ly omega-3 fatty acids-fish oil 340-1,000 mg cap Take 1 capsule by mouth daily . 0 Active ondansetron 4 mg oral tablet (11 sources) Serotonin-3 Receptor Antagonist Start: 12-19-2020 End: 01-16-2022 take 1 tablet by mouth every six hours as needed for nausea ondansetron 4 MG tablet Indications: Non-intractable vomiting with nausea, unspecified vomiting type Take 1 tablet by mouth every 6 hours as needed for Nausea. 30 tablet 5 12/19/2020 01/16/2022 Discontinued Start: 12-03-2020 End: 09-03-2021 take 1 tablet by mouth every eight hours as needed ondansetron (Zofran ODT) 4 MG disintegrating tablet Dissolve 1 (one) tablet (4 mg total) on top of tongue every 8 (eight) hours as needed for nausea . 15 tablet 0 12/03/2020 09/03/2021 Discontinued (Therapy completed) Start: 12-03-2020 End: 12-03-2020 ondansetron (ZOFRAN) injecti on 4 mg Start: 10-07-2019 End: 10-07-2019 take 4 mg intravenous route every twenty-four hours as needed 4 mg, Intravenous, Once as needed, nausea, vomiting, Starting Thu10/07/19 at 1232, For 1 dose, PACU (only) Administer first as needed for nausea/vomiting, or as directed by anesthesia Start: 03-22-2019 End: 03-23-2019 take 4 mg intravenous route every six hours as needed 4 mg, Intravenous, Every 6 hours PRN, nausea, vomiting, Starting Thu03/22/19 at 1122 PARoxetine hydrochloride 10 mg oral tablet (1 source) Serotonin Reuptake Inhibitor End: 03-22-2019 take 1 tablet by mouth once daily PARoxetine (PAXIL) 10 MG tablet Take 10 mg by mouth daily. 0 03/22/2019 Discontinued (Error) perflutren lipid microspheres (DEFINITY) 0.143 mg/mL solution 0-10 mL of mixture (1 source) Start: 03-22-2019 End: 03-23-2019 0-10 mL of mixture, Intravenous, Once in imaging, contrast, IF suboptimal echo, Starting Thu03/22/19 at 1122, For 48 hours Prepare syringe by withdrawing 1.3 mL of perflutren (DEFINITY) from the 2ml vial. Further dilute the 1.3 mL of perflutren with Sodium Chloride (NS) 0.9% to total volume of 10 ml. Chart total ML OF MIXTURE given to patient. 2 ml prochlorperazine 5 mg/ml injection (1 source) Phenothiazine Start: 10-07-2019 End: 10-07-2019 take 5 mg intravenous route every twenty-four hours as needed 5 mg, Intravenous, Once as needed, nausea, Starting Thu10/07/19 at 1232, For 1 dose, PACU (only) Adminis ter if ondansetron (Zofran), promethazine (Phenergan), and Metocolopramide (Reglan) ineffective or not ordered, or as directed by anesthesia, as needed for nausea/vomiting simethicone 66.7 mg/ml oral suspension (1 source) Start: 01-01-2021 End: 01-01-2021 simethicone (MYLICON) oral suspension 80 mg sincalide (Kinevac) 1.4 mcg in sodium chloride 0.9 % 100 mL infusion (1 source) Start: 02-27-2023 End: 02-27-2023 sincalide (Kinevac) 1.4 mcg in sodium chloride 0.9 % 100 mL infusion 5 ml sodium chloride 9 mg/ml injection (10 sources) Start: 03-27-2023 End: 03-27-2023 sodium chloride 0.9% (NS) flush 10 mL Start: 03-27-2023 End: 03-27-2023 sodium chloride 0.9% (NS) fl ush 10 mL Start: 03-27-2023 End: 03-27-2023 sodium chloride 0.9 % infusi on Start: 03-27-2023 End: 03-27-2023 sodium chloride 0.9% (NS) fl ush 10 mL Start: 12-03-2020 End: 12-03-2020 sodium chloride 0.9% (NS) brigitte darcie 1,000 mL Start: 12-03-2020 End: 12-03-2020 sodium chloride (PF) (NS) fl ush 5 mL Start: 03-22-2019 End: 03-23-2019 sodium chloride 0.9% (NS) Start: 03-22-2019 End: 03-22-2019 sodium chloride 0.9% (NS) brigitte darcie 1,000 mL technetium Tc-99m mebrofenin (Choletec) radio-isotope injection 3.5 millicurie (1 source) Start: 02-27-2023 End: 02-27-2023 technetium Tc-99m mebrofenin (Choletec) radio-isotope injection 3.5 millicurie 1 ml triamcinolone acetonide 40 mg/ml injection (4 sources) Corticosteroid Start: 05-21-2023 End: 05-21-2023 triamcinolone acetonide (KENALOG-40) injection 40 mg Start: 12-31-2021 End: 12-31-2021 triamcinolone acetonide (ANNA MARIE ALOG-40) injection 40 mg Start: 08-08-2019 End: 08-08-2019 triamcinolone acetonide (ANNA MARIE ALOG-40) injection 40 mg vitamin b12 1 mg oral capsule (20 sources) Vitamin B12 Start: 07-07-2022 End: 07-13-2025 take 1 capsule by mouth once daily Cyanocobalamin (Vitamin B-12) 1,000 mcg capsule Discontinued 1000 ug PO DAILY July 07, 2022 12:00am July 13, 2025 1:50pm End: 12-10-2023 cyanocobalamin, vitamin B-12 , 1,000 mcg/mL Drop Take by mouth . 0 12/10/2023 Discontinued Cyanocobalamin ( VITAMIN B 12 PO) Take by mouth. 0 Active Problems Active Problems Problem Classification Problem Date Documented Da te Episodic/Chronic Abdominal pain (20 sources) Generalized abdominal pain; Translations: [Generalized abdominal pain] Onset: 12-17-2020 12-17-2020 Episodic Calculus of urinary tract (4 sources) Kidney stone; Translations: [Calculus of kidney] 07-28-2023 Episodic Cardiac dysrhythmias (18 sources) Bradycardia; Translations: [Bradycardia] 03-23-2019 Chronic Cardiac dysrhythmias (20 sources) Bradycardia; Translations: [Bradycardia, unspecified] Episodic Deficiency and other anemia (14 sources) Anemia; Translations: [Anemia, unspecified] 07-07-2022 Episodic Esophageal disorders (15 sources) Gastro-esophageal reflux disease with esophagitis; Translations: [Gastroesophageal reflux disease] 07-09-2022 Chronic Comment on above: occasional Essential hypertension (20 sources) Essential hypertension; Translations: [Essential (primary) hypertension] Onset: 09-03-2021 Chronic Comment on above: Family history of hy pertension in mother Gastritis and duodenitis (1 source) Acute gastritis; Translations: [Acute gastritis, presence of bleeding unspecified, unspecified gastritis type] Episodic Headache; including migraine (14 sources) Migraine; Translations: [Migraine, unspecified, not intractable, without status migrainosus] 07-07-2022 Chronic Malaise and fatigue (20 sources) Fatigue; Translations: [Other fatigue] Episodic Menstrual disorders (12 sources) Dysmenorrhea; Translations: [Menorrhagia] Onset: 01-21-2021 01-21-2021 Chronic Mood disorders (14 sources) Depressive disorder; Translations: [Depression] 07-09-2022 Chronic Nausea and vomiting (1 source) Nausea; Translations: [Nausea] Onset: 07-13-2025 Episodic Noninfectious gastroenteritis (4 sources) Enteritis of small intestine; Translations: [Noninfective gastroenteritis and colitis, unspecified] 07-28-2023 Episodic Osteoarthritis (20 sources) Osteoarthritis of right knee joint; Translations: [Unilateral primary osteoarthritis, right knee] Onset: 08-15-2019 08-15-2019 Chronic Osteoarthritis (12 sources) Osteoarthritis of right knee joint; Translations: [Osteoarthritis of left knee joint] Onset: 08-15-2019 08-15-2019 Other aftercare (1 source) Surgical follow-up; Translations: [Encounter for follow-up examination after completed treatment for conditions other than malignant neoplasm] Episodic Other bone disease and musculoskeletal deformities (10 sources) Segmental and somatic dysfunction; Translations: [Segmental and somatic dysfunction of lumbar region] 08-06-2023 Episodic Other connective tissue disease (10 sources) History of total knee arthroplasty; Translations: [Presence of right artificial knee joint] 01-04-2024 Chronic Other connective tissue disease (4 sources) Presence of right artificial knee joint; Translations: [Presence of right artificial knee joint] Onset: 12-28-2023 Chronic Other gastrointestinal disorders (1 source) Irritable bowel syndrome with diarrhea; Translations: [Irritable bowel syndrome with diarrhea] Chronic Other gastrointestinal disorders (2 sources) Mixed irritable bowel syndrome; Translations: [Mixed irritable bowel syndrome] Onset: 07-13-2025 Chronic Other gastrointestinal disorders (2 sources) Irritable bowel syndrome characterized by alternating bowel habit; Translations: [Mixed irritable bowel syndrome] 07-13-2025 Chronic Other gastrointestinal disorders (9 sources) Constipation; Translations: [Other constipation] Onset: 12-17-2020 12-17-2020 Episodic Other gastrointestinal disorders (1 source) Chronic constipation; Translations: [Other constipation] Episodic Other gastrointestinal disorders (1 source) Esophageal dysphagia; Translations: [Other dysphagia] Episodic Other gastrointestinal disorders (2 sources) Dysphagia; Translations: [Dysphagia, unspecified] Episodic Other gastrointestinal disorders (2 sources) Dysphagia, unspecified; Translations: [Dysphagia, unspecified] Onset: 03-27-2023 Episodic Other gastrointestinal disorders (1 source) Other constipation; Translations: [Other constipation] Onset: 02-19-2023 Episodic Other gastrointestinal disorders (2 sources) Other dysphagia; Translations: [Other dysphagia] Onset: 02-19-2023 Episodic Other injuries and conditions due to external causes (1 source) Closed injury of head; Translations: [Closed head injury, initial encounter] Episodic Other lower respiratory disease (20 sources) Dyspnea on exertion; Translations: [Shortness of breath] Onset: 02-22-2016 Episodic Other lower respiratory disease (6 sources) Other forms of dyspnea; Translations: [Other respiratory abnormalities] Episodic Other non-traumatic joint disorders (1 source) Knee pain; Translations: [Knee pain, unspecified chronicity, unspecified laterality] Episodic Other skin disorders (4 sources) Erythematous rash; Translations: [Rash and other nonspecific skin eruption] 07-28-2023 Episodic Other upper respiratory infections (2 sources) Sore throat symptom; Translations: [Acute upper respiratory infection] Episodic Spondylosis; intervertebral disc disorders; other back problems (13 sources) Backache; Translations: [Dorsalgia, unspecified] 06-02-2023 Episodic Superficial injury; contusion (1 source) Contusion of eyelid; Translations: [Contusion of right eyelid, initial encounter] Episodic Unclassified (3 sources) Patient encounter status; Translations: [Preop testing] Onset: 12-17-2020 12-17-2020 Unclassified (3 sources) No additional problems on file Past or Other Problems Problem Classification Problem Date Documented Da te Episodic/Chronic Blindness and vision defects (20 sources) Hypermetropia; Translations: [Hypermetropia, unspecified eye] Onset: 6 08-08-2019 Episodic Gastrointestinal hemorrhage (8 sources) Lower gastrointestinal hemorrhage; Translations: [Gastrointestinal hemorrhage] Onset: 1 12-17-2020 Episodic Nonmalignant breast conditions (1 source) Unspecified lump in the left breast, unspecified quadrant; Translations: [Unspecified lump in the left breast, unspecified quadrant] Onset: 5 Episodic Nonspecific chest pain (20 sources) Chest pain; Translations: [Chest pain, unspecified] Onset: 6 02-22-2016 Episodic Other aftercare (2 sources) Encounter for follow-up examination after completed treatment for conditions other than malignant neoplasm; Translations: [Encounter for follow-up examination after completed treatment for conditions other than malignant neoplasm] Onset: 4 Episodic Other and unspecified benign neoplasm (6 sources) Leiomyoma; Translations: [Benign neoplasm of connective and other soft tissue, unspecified] Onset: 1 01-21-2021 Episodic Other bone disease and musculoskeletal deformities (4 sources) Segmental and somatic dysfunction of lumbar region; Translations: [Nonallopathic lesions, lumbar region] Onset: 4 08-06-2023 Episodic Other bone disease and musculoskeletal deformities (4 sources) Segmental and somatic dysfunction of pelvic region; Translations: [Nonallopathic lesions, pelvic region] Onset: 4 08-06-2023 Episodic Other bone disease and musculoskeletal deformities (2 sources) Segmental and somatic dysfunction of cervical region; Translations: [Nonallopathic lesions, cervical region] Onset: 4 09-01-2023 Episodic Other bone disease and musculoskeletal deformities (2 sources) Segmental and somatic dysfunction of thoracic region; Translations: [Nonallopathic lesions, thoracic region] Onset: 4 09-01-2023 Episodic Other gastrointestinal disorders (7 sources) Heartburn; Translations: [Heartburn] Onset: 1 12-17-2020 Episodic Other lower respiratory disease (18 sources) Dyspnea; Translations: [SOB (shortness of breath)] Onset: 6 02-22-2016 Episodic Other lower respiratory disease (2 sources) Shortness of breath; Translations: [Shortness of breath] Onset: 1 Episodic Other nervous system disorders (20 sources) Paresthesia; Translations: [Paresthesia of skin] Onset: 9 05-13-2019 Episodic Other non-traumatic joint disorders (20 sources) Instability of joint of right knee; Translations: [Other instability, right knee] Onset: 4 Episodic Other non-traumatic joint disorders (4 sources) Other instability, right knee; Translations: [Other instability, right knee] Onset: 4 Episodic Other screening for suspected conditions (not mental disorders or infectious disease) (1 source) Encounter for screening mammogram for malignant neoplasm of breast; Translations: [Encounter for screening mammogram for malignant neoplasm of breast] Onset: 4 Episodic Residual codes; unclassified (20 sources) History of arthroscopy of knee joint; Translations: [Other specified postprocedural states] Onset: 4 Episodic Residual codes; unclassified (4 sources) Other specified postprocedural states; Translations: [Other specified postprocedural states] Onset: 4 Episodic Residual codes; unclassified (2 sources) Pain, unspecified; Translations: [Pain, unspecified] Onset: 4 Episodic Residual codes; unclassified (1 source) Kidney donor; Translations: [Kidney donor] Onset: 5 Episodic Syncope (20 sources) Syncope; Translations: [Near syncope] Onset: 9 03-22-2019 Episodic Results Test Name Value Interpretation Reference Range Facility ELIZABETH Comprehensive Panelon ELIZABETH TABLE TNP Normal [facility] Comment on above: Performed By: #### L 501.2400, L101.9900, L501.6710, L3100.5440, L501.2450 #### [facility] [address] [place], [address] Amylaseon 07-13-2025 KIT 49 U/L Normal 28-100 [facility] Comment on above: Performed By: #### L 501.2400, L101.9900, L501.6710, L3100.5440, L501.2450 ####[facility] [address] [place], [address] CRPon 07-13-2025 C-REACTIVE PROT < 3.00 Normal 0.0-3.0 [facility] Comment on above: Performed By: #### L 501.2400, L101.9900, L501.6710, L3100.5440, L501.2450 ####[facility] [address] [place], [address] Erythrocyte Sed Rateon 07-13 SED RATE 1 mm/hr Normal 0-30 [facility] Comment on above: Performed By: #### L 501.2400, L101.9900, L501.6710, L3100.5440, L501.2450 #### [facility] [address] [place], [address] Erythrocyte sedimentation ra teOrdered By: Rob Segovia on 07-13-2025 ESR (Bld) [Velocity] 1 mm/h 0-30 [facility] Gastroenterology Visit Repor ton 07-13-2025 Gastroenterology Visit Report [facility] [address] [place] [address] OFFICE VISIT Date of Service: 07/13/25 MR#: [id number] Acct: [id number] Name: DEVYN CORONA Rep #: [id number] : 1980 Provider: Rob Segovia DO Age/Sex: 45/F Location: [facility] [place] Status: Signed Intake Vital Signs 03/28/24 13:24 Height 5 ft 5 in Intake Visit Reasons: Referred by PCP Allergies No Known Allergies Allergy (Verified 10/17/24 10:07) Medications ???Medication ???Instructions ???Recorded ???Confirmed ???Type multivitamin with minerals 1 tab PO DAILY 07/07/22 07/13/25 H istory (Hair,Skin and Nails tablet) lactobacillus combination no.4 3 3,000 mmu cells PO QDAY 07/13/25 0 07/13/25 History billion cell capsule (Probiotic) magnesium PO 07/13/25 07/13/25 History zinc acetate PO 07/13/25 07/13/25 History Nurse's Note: Pt was scheduled for capsule endoscopy on 07.31.25 at the end of their appt today. Reviewed prep instructions and which medications to hold prior to procedure with pt in office. A paper copy of capsule prep instructions were given to pt. Pt denies any questions or concerns at this time. Capsule consent signed. [facility] Medical History [place] (dyspnea on exertion) Fatigue Migraine GERD (gastroesophageal reflux disease) Depression Bradycardia Anemia Essential (primary) hypertension Surgical History Hx of tubal ligation Hx of abdominoplasty Hx of knee surgery Hx of knee surgery History of breast augmentation ( 2009) History of hysterectomy ( 04/16/21) Family History Father Cancer Lung Son 5p minus syndrome Social History (Updated 07/13/25 @ 13:52 by Yaima Potter) household members: spouse Smoking Status: Never smoker alcohol intake: current alcohol intake frequency: holidays/special occasions only substance use type: does not use caffeine: Yes Type: coffee Number of servings: 1 HPI HPI Details: DEVYN CORONA, is a 45 F who presents to the office today for initial consult. *[facility] established 07.13.25 pt reports she began having GI symptoms in 2019, pt wonders if it could be related to her COVID shot. Pt reports nausea, constipation, abd pain, and gas / bloating. Pt reports she had a colonoscopy in 2020 and an EGD in 2021; reports both scopes were clear. Pt states she also had a hysterectomy because her doctors thought her pain was from fibroids. Pt requested allergy testing from previous provider, was told that allergies don't just pop up, states she has cut gluten out of her diet for the past 3 years and has noticed a slight improvement in symptoms. Pt has tried miralax and smooth move tea, is now taking milk of magnesia. Reports she is having a bm once every 3 days, when she is able to go she reports urgent diarrhea. I've been having alternating constipation and urgent diarrhea, accompanied by bloating and cramping abdominal pain.. The symptoms began approximately 5 years ago. Her abdominal pain is diffuse but described as crampy and down low in her belly. She patient experiences episodes of constipation lasting 3-5 days, followed by periods of urgent diarrhea. Bloating and pain are persistent and can be triggered or worsened by eating. She describes the pain as dull, cramping abdominal pain rated as { 6/10 on a scale of 1-10]. She gets Bloating:???Frequent abdominal distention, often occurring after meals. She also gets Constipation:???Reports fewer than three bowel movements per week during episodes. Stools are hard and difficult to pass. Frequently, she reports urgent, loose, watery stools occurring multiple times a day during episodes. No blood or mucus observed. Aggravating Factors:???Symptoms worsen with stress and certain foods (e.g., high-fat, dairy). Alleviating Factors:???no significant relief from [id number] medications. Passing gas or a bowel movement sometimes provides temporary, mild relief from bloating and cramping. Associated Symptoms:???reports a sensation of incomplete bowel evacuation. Denies fever, chills, nausea, vomiting, hematochezia, or unintentional weight loss. 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 ROS Const Constitutional: No fatigue, fever(s) or weight change ENT ENT: No difficulty swallowing Gastro GI: Positive for abdominal pain, bloating, change in bowel habits, constipation, excessive flatus and nausea/dyspepsia; No belching, change in stool character, coffee ground emesis, cramping, diarrhea, heartburn, difficulty swallowing, feeling full early, incontinent of stools, Vomiting blo (more content not included)... Normal [facility] Lipaseon 07-13-2025 Lipase [Catalytic activity/Vol] 41 U/L Normal 13-75 [facility] Comment on above: Result Comment: Daphnie law note: LIPASE revised reference range effective 23. New Lipase methodology. Expected to produce lower values than the previous assay method. NEW Reference Range: 13 - 75 U/L Performed By: #### L 501.2400, L101.9900, L501.6710, L3100.5440, L501.2450 ####[facility] [address] [place], [address] Lipase measurementOrdered By : Rob Segovia on 07-13-2025 Lipase [Catalytic activity/Vol] 41 U/L 13-75 [facility] Comment on above: Please note:LIPASE r evised reference range effective 23. New Lipase methodology. Expected to produce lower values than the previous assay method. NEW Reference Range: 13 - 75 U/L Serum Scl-70 antibody assay (units/volume)Ordered By: Rob Segovia on 07-13-2025 SCL-70 extractable nuclear Ab Qn (S) TNP [facility] Comment on above: Test not performed Serum or plasma C reactive p rotein measurement (mass/volume)Ordered By: Rob Segovia on 07-13-2025 CRP [Mass/Vol] mg/L 0.0-3.0 [facility] Serum or plasma amylase santa urement (enzymatic activity/volume)Ordered By: Rob Segovia on 07-13-2025 Amylase [Catalytic activity/Vol] 49 U/L 28-100 [facility] [id number] 11-18-2024 [facility] Misc. COMMENT Normal . [facility] Comment on above: Order Comment: CLEAN CATCH Result Comment: Test Ordered: [id number] Cystatin C Cystatin C 0.59 [L ] mg/L Reference Range: 0.60-1.00 Performed at: - [facility] [address] [id number] Band Instrument Repairer: Taiwo Fan PhD, Phone: [phone] Performed By: #### L 400.0001 #### [facility] [address] [place], [place], [id number] 11-17-2024 ABO and Rh group Nom (Bld) Blood group O Rh(D) positive Normal [facility] Comment on above: Performed By: #### L 400.0001, L501.0100, L501.2300, L3410.9999, L501.9985, L502.0500, L501.1105, L500.4100, B882-1 ####[facility] [address] [place], [place], [id number] Glucoseon 11-17-2024 Glucose [Mass/Vol] 85 mg/dL Normal 74-106 [facility] Comment on above: Performed By: #### L 400.0001, L501.0100, L501.2300, L3410.9999, L501.9985, L502.0500, L501.1105, L500.4100, B882-1 ####[facility] [address] [place], [place], [id number] Hemoglobin A1con 11-17-2024 HbA1c (Bld) [Mass fraction] 5.2 % Normal 3.8-5.6 [facility] Comment on above: Result Comment: Norm al < 5.7 % Prediabetic 5.7 - 6.4 % Diabetic >or= 6.5 % Please note range changes. Performed By: #### L 400.0001, L501.0100, L501.2300, L3410.9999, L501.9985, L502.0500, L501.1105, L500.4100, B882-1 ####[facility] [address] [place], [address] Lipid Profileon 11-17-2024 Cholesterol [Mass/Vol] 171 mg/dL Normal 200 [facility] Comment on above: Result Comment: <200 mg/dL Desirable 200-240 mg/dL Borderline >240 mg/dL High Risk Performed By: #### L 400.0001, L501.0100, L501.2300, L3410.9999, L501.9985, L502.0500, L501.1105, L500.4100, B882-1 ####[facility] [address] [place], [address] Cholesterol in HDL [Mass/Vol] 78 mg/dL Normal [facility] Comment on above: Result Comment: The drugs N-Acetylcysteine and Metamizole may falsely depress this assay. Reference Range HDL <40 mg/dL Low HDL Cholesterol HDL >or= 60 mg/dL High HDL Cholesterol Performed By: #### L 400.0001, L501.0100, L501.2300, L3410.9999, L501.9985, L502.0500, L501.1105, L500.4100, B882-1 ####[facility] [address] [place], [address] Cholesterol in LDL [Mass/Vol] 84 mg/dL Normal 0-130 [facility] Comment on above: Performed By: #### L 400.0001, L501.0100, L501.2300, L3410.9999, L501.9985, L502.0500, L501.1105, L500.4100, B882-1 ####[facility] [address] [place], [address] Cholesterol in VLDL [Mass/Vol] 9 mg/dL Normal 5-40 [facility] Comment on above: Performed By: #### L 400.0001, L501.0100, L501.2300, L3410.9999, L501.9985, L502.0500, L501.1105, L500.4100, B882-1 ####[facility] [address] [place], [address] Triglyceride [Mass/Vol] 43 mg/dL Normal [facility] Comment on above: Result Comment: The drugs N-Acetylcysteine and Metamizole may falsely depress this assay. Serum Triglycerides Reference Interval Normal <150 mg/dL Borderline high 150 - 199 mg/dL High 200 - 499 mg/dL Very High > or = 500 mg/dL Performed By: #### L 400.0001, L501.0100, L501.2300, L3410.9999, L501.9985, L502.0500, L501.1105, L500.4100, B882-1 ####[facility] [address] [place], [address] Microalbumin,Random Urineon 11-17-2024 MICROALBUMIN,UR 13.4 mg/L Normal NO RANGE EST. [facility] Comment on above: Performed By: #### L 400.0001 #### [facility] [address] [place], [address] Phosphoruson 11-17-2024 Phosphate [Mass/Vol] 3.1 mg/dL Normal 2.5-4.9 [facility] Comment on above: Performed By: #### L 400.0001, L501.0100, L501.2300, L3410.9999, L501.9985, L502.0500, L501.1105, L500.4100, B882-1 ####[facility] [address] [place], [place], [id number] Serum Creatinine AND GFRon 0 11-17-2024 Creatinine [Mass/Vol] 0.72 mg/dL Normal 0.55-1.02 [facility] Comment on above: Result Comment: The validity of the calculated GFR GFRAA in patients over 70 years has not been determined. Clinical correlation is essential. Performed By: #### L 400.0001, L501.0100, L501.2300, L3410.9999, L501.9985, L502.0500, L501.1105, L500.4100, B882-1 ####[facility] [address] [place], [address] EST GFR - AA 113 mL/min Normal >60 [facility] Comment on above: Result Comment: Afri can Citizen Of [place] GFR Calc Performed By: #### L 400.0001, L501.0100, L501.2300, L3410.9999, L501.9985, L502.0500, L501.1105, L500.4100, B882-1 ####[facility] [address] [place], [address] GFR/1.73 sq M.predicted among non-blacks MDRD (S/P/Bld) [Vol rate/Area] 94 mL/min/{1.73_m2} Normal >60 [facility] Comment on above: Result Comment: Non- GFR Calc Performed By: #### L 400.0001, L501.0100, L501.2300, L3410.9999, L501.9985, L502.0500, L501.1105, L500.4100, B882-1 ####[facility] [address] [place], [place], [id number] Urinalysis, Completeon 11-17 BACTERIA 0 SEEN Normal None Seen [facility] Comment on above: Order Comment: CLEAN CATCH Performed By: #### L 400.0001, L501.0100, L501.2300, L3410.9999, L501.9985, L502.0500, L501.1105, L500.4100, B882-1 ####[facility] [address] [place], [address] EPI,SQUAMOUS 0 SEEN Normal 5-10 [facility] Comment on above: Order Comment: CLEAN CATCH Performed By: #### L 400.0001, L501.0100, L501.2300, L3410.9999, L501.9985, L502.0500, L501.1105, L500.4100, B882-1 ####[facility] [address] [place], [address] Mucus Ql (Urine sed) 0 SEEN Normal [facility] Comment on above: Order Comment: CLEAN CATCH Performed By: #### L 400.0001, L501.0100, L501.2300, L3410.9999, L501.9985, L502.0500, L501.1105, L500.4100, B882-1 ####[facility] [address] [place], [address] RBC 0 SEEN Normal 0-5 [facility] Comment on above: Order Comment: CLEAN CATCH Performed By: #### L 400.0001, L501.0100, L501.2300, L3410.9999, L501.9985, L502.0500, L501.1105, L500.4100, B882-1 ####[facility] [address] [place], [address] WBC 0 SEEN Normal 0-5 [facility] Comment on above: Order Comment: CLEAN CATCH Performed By: #### L 400.0001, L501.0100, L501.2300, L3410.9999, L501.9985, L502.0500, L501.1105, L500.4100, B882-1 ####[facility] [address] [place], [address] Chiropractic Reporton 2023 Chiropractic Report [facility] [address] [place] [address] OFFICE VISIT Date of Service: 10/17/24 MR#: [id number] Acct: [id number] Name: DEVYN CORONA Rep #: [id number] : 1980 Provider: LALO Lobo Age/Sex: 44/F Location: [facility] [place] Status: Signed Intake Vital Signs 03/28/24 13:24 Height 5 ft 5 in Intake Visit Reasons: Back pain Chief Complaint: low back pain Is patient in pain?: Yes (Hips, LBP) Pain scale (1-10): 1 Allergies No Known Allergies Allergy (Verified 10/17/24 10:07) Medications ???Medication ???Instructions ???Recorded ???Confirmed ???Type cyanocobalamin (vitamin B-12) 1,000 mcg PO DAILY 07/07/22 10/17/24 History 1,000 mcg capsule ferrous sulfate 325 mg (65 mg 325 mg PO DAILY 07/07/22 10/17/24 History iron) tablet loratadine 5 mg chewable tablet 5 mg PO QAM PRN allergy symptoms 07/07/22 10/17/24 History (Children's Loratadine) multivitamin with minerals 1 tab PO DAILY 07/07/22 10/17/24 History (Hair,Skin and Nails tablet) omega-3 fatty acids 1,000 mg 1,000 mg PO DAILY 07/07/22 10/17/24 History capsule cyclobenzaprine 10 mg tablet 10 mg PO TID PRN Muscle Spasm #20 06/02/23 10/17/24 Rx TABLETS naproxen 500 mg tablet 500 mg PO BID #14 tabs 06/02/23 10/17/24 Rx lisinopril 20 See Rx Instructions .Route 07/22/23 10/17/24 Rx mg-hydrochlorothiazide 12.5 mg .COMPLEX #90 tabs tablet famotidine 20 mg tablet (Pepcid) 20 mg PO BID #10 tabs 07/28/23 10/17/24 Rx cyclobenzaprine 10 mg tablet 10 mg PO TID PRN Muscle Spasm #20 09/15/23 10/17/24 Rx TABLETS naproxen 500 mg tablet (Naprosyn) 500 mg PO BID PRN pain #20 tabs 09/15/23 10/17/24 Rx PFSH Medical History [place] (dyspnea on exertion) Fatigue Migraine GERD (gastroesophageal reflux disease) Depression Bradycardia Anemia Essential (primary) hypertension Surgical History Hx of tubal ligation Hx of abdominoplasty Hx of knee surgery Hx of knee surgery History of breast augmentation ( 2009) History of hysterectomy ( 04/16/21) Family History Father Cancer Lung Son 5p minus syndrome Social History household members: spouse Smoking Status: Never smoker alcohol intake: current alcohol intake frequency: holidays/special occasions only substance use type: does not use caffeine: Yes Type: coffee Number of servings: 1 HPI Back pain Chief Complaint: low back pain Visit Number: 4 Details: Devyn is a 44 y/o female here today to f/u on low back pain. She complains of increased knee pain with the cold weather. The knee pain has caused her to compensate when she is walking. She complains of her hips being painful and feeling out of alignment. She also complains of low back pain. She rates her pain 1/10.She has been doing the stretches at home that she was shown and treats pain at home with heat, ice, and Meloxicam. She denies numbness, tingling or radiculopathy. She reports chiropractic adjustments are helpful in relieving some of her pain and discomfort. Onset: 03/27/24 Location: low back Duration: intermittent Aggravating or associated factors: walking, R knee surgery, yoga Relieving factors: chiro Pain Quality: aching, dull and sharp Exam Musc General: Yes normal posture and joint tenderness; No normal gait, muscle weakness or decreased range of motion Thoracic/Lumber: No thoracic and lumbar spine normal to inspection (right ilium superior), No pain with thoraco-lumbar ROM, Yes paraspinal tenderness bilaterally in the mid thoracic and on the left greater than right (lumbopelvic), Yes thoraco-lumbar spasm (improving) on the right greater than left (paraspinal L3-S1,trap, rhomboid) and on the left greater than right (glute med,psoas) and Yes misalignment T1, T2, T3, T7, T8, L3, L4, L5, RIL and LIL Sacroiliac joints: bilaterally tender to palpation Ortho Test CERVICAL Compression pain: Negative Distraction pain: relief Will's pain: Negative Valsalvas: Negative Shoulder depression pain: Right THORACIC LUMBAR Office Procedures Procedures - Chiropractic Procedures Manipulation: Lumbar L4, Thoracic T2 and T6 and Pelvis RIL Manipulation: 3-4 regions Patient Response: positive Assessment and Plan Assessment and Plan (1) Segmental and somatic dysfunction of pelvic region: Status: Acute (2) Segmental and somatic dysfunction of lumbar region: Status: Acute (3) Segmental and somatic dysfunction of thoracic region: Status: Acute Orders: Orders Chiropractic Treatments Today M99.01 - Segmental and somatic dysfunction of cervical region, M99.02 - Segmental and somatic (more content not included)... Normal [facility] Breast Limited Unilateralon 08-16-2024 Breast Limited Unilateral [facility] Imaging Services [address] [place] [address] [id number] Breast Limited Unilateral MR#: [id number] Acct: [id number] Name: DEVYN CORONA Rep #: [id number] : 1980 F 44 From: Cas murillo MD PCP: Dr. Nupur Garcia MD Status: REG CLI Study: Breast Limited Unilateral Date of Exam: Exam# [id number] Ordering Dr: Nupur Garcia MD [id number] STUDY: ULTRASOUND BREAST - LEFT REASON FOR EXAM: Female, 44 years old. Abnormal screening mammogram. TECHNIQUE: Axial and longitudinal images of the LEFT breast were performed with a high resolution ultrasound transducer. # OF IMAGES: 1 COMPARISON: Comparison is made with prior mammogram dated August 11, 2024. FINDINGS: LEFT Breast: The plantar aspect of the left breast was examined with ultrasound. The mammographic abnormality corresponds to a 7 mm x 7 mm x 3 mm benign-appearing lymph node. US/Breast Limited Unilateral IMPRESSION: The mammographic abnormality corresponds to 7 mm x 7 mm x 3 mm lymph node. Routine annual mammographic follow-up recommended. ASSESSMENT CATEGORY: BIRADS Category 2: Benign. A letter regarding these results will be sent to the patient by the facility within 30 days. Electronically Signed: Cas Estrada MD at 12:17 EDT Reading Location ID and State: [facility] / [place] , Service support , CC: Dr. Nupur Garcia MD Payroll Supervisor: Signed Normal [facility] SCRN MAMM (CAD)W/MORALES BILATo n 08-11-2024 SCRN MAMM (CAD)W/MORALES BILAT [facility] Imaging Services [address] [place] [id number] SCRN MAMM (CAD)W/MORALES BILAT MR#: [id number] Acct: [id number] Name: DEVYN CORONA Rep #: [id number] : 1980 F 44 From: Cas murillo MD PCP: Dr. Nupur Garcia MD Status: REG [facility] Study: SCRN MAMM (CAD)W/MORALES BILAT Date of Exam: 07/26 05/18 Exam# [id number] Ordering Dr: Nupur Garcia MD [id number] MAMMOGRAPHY - BILATERAL SCREENING REASON FOR EXAM: Female, 44 years old. Routine annual screening examination. PERTINENT HISTORY: Non-contributory. History of bilateral breast implants. TECHNIQUE: Digital bilateral breast morales (3D mammographic acquisition) in the CC and MLO projections. 2-D mediolateral oblique (MLO) and craniocaudad (CC) views of both breasts were obtained. CAD: Full Field Digital Mammography with Computer Added Detection was performed. COMPARISON: Comparison is made with prior study dated February 10, 2023. FINDINGS: Breast Composition: The breasts are extremely dense, which lowers the sensitivity of mammography. There is a 5.8 mm x 6.3 mm nodular density in the deep lateral aspect of the left breast. Correlation with ultrasound is recommended.. No other significant abnormalities are identified. BI/SCRN MAMM (CAD)W/MORALES BILAT IMPRESSION: 5.8 mm x 6.3 mm well-defined nodular density in the deep central lateral aspect of the left breast at the 3:00 position. Correlation with ultrasound is recommended. ASSESSMENT CATEGORY: BIRADS Category 0: Incomplete. Need additional imaging evaluation. A letter regarding these results will be sent to the patient by the facility within 30 days. Approximately 10% of breast cancers are not detected by mammography. A normal mammogram should not delay biopsy of a clinically suspicious abnormality. [id number] Electronically Signed: Cas Estrada MD at 8:35 EDT , CC: Dr. Nupur Garcia MD Payroll Supervisor: Signed Normal [facility] CBC W/Diff, Automatedon 07-26 Absolute Lymph 2.20 X10 3/uL Normal 0.83-4.51 [facility] Comment on above: Order Comment: Order Date: 07/27/24 Order Info: 0184-1 - CBCD Performed By: #### L 501.9520, L500.4100, L100.0100, L501.5200, L500.4050 #### [facility] [address] [place], [address] Absolute Neut 3.6 X10 3/uL Normal 2.0-7.7 [facility] Comment on above: Order Comment: Order Date: 07/27/24 Order Info: 0184-1 - CBCD Performed By: #### L 501.9520, L500.4100, L100.0100, L501.5200, L500.4050 #### [facility] [address] [place], [address] Basophils/100 WBC (Bld) 0.5 % Normal 0-1 [facility] Comment on above: Order Comment: Order Date: 07/27/24 Order Info: 0184-1 - CBCD Performed By: #### L 501.9520, L500.4100, L100.0100, L501.5200, L500.4050 #### [facility] [address] [place], [address] Eosinophils/100 WBC (Bld) 2.1 % Normal 0-5 [facility] Comment on above: Order Comment: Order Date: 07/27/24 Order Info: 0184-1 - CBCD Performed By: #### L 501.9520, L500.4100, L100.0100, L501.5200, L500.4050 #### [facility] [address] [place], [address] Erythrocyte distribution width (RBC) [Ratio] 11.9 % Normal 11.6-14.6 [facility] Comment on above: Order Comment: Order Date: 07/27/24 Order Info: 0184-1 - CBCD Performed By: #### L 501.9520, L500.4100, L100.0100, L501.5200, L500.4050 #### [facility] [address] [place], [address] Hematocrit (Bld) [Volume fraction] 39.0 % Normal 37-47 [facility] Comment on above: Order Comment: Order Date: 07/27/24 Order Info: 0184-1 - CBCD Performed By: #### L 501.9520, L500.4100, L100.0100, L501.5200, L500.4050 #### [facility] [address] [place], [address] Hemoglobin (Bld) [Mass/Vol] 13.2 g/dL Normal 12.0-15.0 [facility] Comment on above: Order Comment: Order Date: 07/27/24 Order Info: 0184-1 - CBCD Performed By: #### L 501.9520, L500.4100, L100.0100, L501.5200, L500.4050 #### [facility] [address] [place], [address] IG% 0.200 Normal 0.0-0.9 [facility] Comment on above: Order Comment: Order Date: 07/27/24 Order Info: 0184-1 - CBCD Result Comment: IG% - Immature Granulocytes (promyelocytes, myelocytes and metamyelocytes) > 1% indicates that a LEFT SHIFT is Present. Performed By: #### L 501.9520, L500.4100, L100.0100, L501.5200, L500.4050 #### [facility] [address] [place], [address] Lymphocytes/100 WBC (Bld) 34.7 % Normal 19-41 [facility] Comment on above: Order Comment: Order Date: 07/27/24 Order Info: 0184-1 - CBCD Performed By: #### L 501.9520, L500.4100, L100.0100, L501.5200, L500.4050 #### [facility] [address] [place], [address] MCH (RBC) [Entitic mass] 28.7 pg Normal 27.0-32.0 [facility] Comment on above: Order Comment: Order Date: 07/27/24 Order Info: 018- - CBCD Performed By: #### L 501.9520, L500.4100, L100.0100, L501.5200, L500.4050 #### [facility] [address] [place], [address] MCHC (RBC) [Mass/Vol] 33.8 g/dL Normal 32-36 [facility] Comment on above: Order Comment: Order Date: 07/27/24 Order Info: 018- - CBCD Performed By: #### L 501.9520, L500.4100, L100.0100, L501.5200, L500.4050 #### [facility] [address] [place], [address] MCV (RBC) [Entitic vol] 84.8 fL Normal 81-99 [facility] Comment on above: Order Comment: Order Date: 07/27/24 Order Info: 0184- - CBCD Performed By: #### L 501.9520, L500.4100, L100.0100, L501.5200, L500.4050 #### [facility] [address] [place], [address] Monocytes/100 WBC (Bld) 5.8 % Normal 0-10 [facility] Comment on above: Order Comment: Order Date: 07/27/24 Order Info: 0184- - CBCD Performed By: #### L 501.9520, L500.4100, L100.0100, L501.5200, L500.4050 #### [facility] [address] [place], [address] Neutrophils/100 WBC (Bld) 56.7 % Normal 47-70 [facility] Comment on above: Order Comment: Order Date: 07/27/24 Order Info: 0184-1 - CBCD Performed By: #### L 501.9520, L500.4100, L100.0100, L501.5200, L500.4050 #### [facility] [address] [place], [address] Nucleated RBC (Bld) [#/Vol] 0 10*3/uL Normal 0-5 [facility] Comment on above: Order Comment: Order Date: 07/27/24 Order Info: 0184-1 - CBCD Performed By: #### L 501.9520, L500.4100, L100.0100, L501.5200, L500.4050 #### [facility] [address] [place], [address] Platelet mean volume (Bld) [Entitic vol] 10.4 fL Normal 6.2-12.0 [facility] Comment on above: Order Comment: Order Date: 07/27/24 Order Info: 0184-1 - CBCD Performed By: #### L 501.9520, L500.4100, L100.0100, L501.5200, L500.4050 #### [facility] [address] [place], [address] Platelets (Bld) [#/Vol] 240 10*3/uL Normal 150-450 [facility] Comment on above: Order Comment: Order Date: 07/27/24 Order Info: 0184-1 - CBCD Performed By: #### L 501.9520, L500.4100, L100.0100, L501.5200, L500.4050 #### [facility] [address] [place], [address] RBC (Bld) [#/Vol] 4.60 10*6/uL Normal 4.2-5.4 [facility] Comment on above: Order Comment: Order Date: 07/27/24 Order Info: 0184-1 - CBCD Performed By: #### L 501.9520, L500.4100, L100.0100, L501.5200, L500.4050 #### [facility] [address] [place], [address] RDW SD 36.6 fl Normal 35.1-43.9 [facility] Comment on above: Order Comment: Order Date: 07/27/24 Order Info: 0184-1 - CBCD Performed By: #### L 501.9520, L500.4100, L100.0100, L501.5200, L500.4050 #### [facility] [address] [place], [address] WBC (Bld) [#/Vol] 6.3 10*3/uL Normal 4.4-11.0 [facility] Comment on above: Order Comment: Order Date: 07/27/24 Order Info: 0184-1 - CBCD Performed By: #### L 501.9520, L500.4100, L100.0100, L501.5200, L500.4050 #### [facility] [address] [place], [address] Comprehensive Metabolic Prof uton 08-06-2024 Albumin [Mass/Vol] 3.7 g/dL Normal 3.2-5.0 [facility] Comment on above: Order Comment: Order Date: 07/27/24 Order Info: 0786-1 - CMP Order Info: [id number] - LIPID Order Info: [id number] - MG Order Info: 3016-3 - TSH Performed By: #### L 501.9520, L500.4100, L100.0100, L501.5200, L500.4050 #### [facility] [address] [place], [address] Albumin/Globulin [Mass ratio] 1.1 {ratio} Normal 0.9-2.4 [facility] Comment on above: Order Comment: Order Date: 07/27/24 Order Info: 86-1 - CMP Order Info: [id number] - LIPID Order Info: [id number] - MG Order Info: [id number] - TSH Performed By: #### L 501.9520, L500.4100, L100.0100, L501.5200, L500.4050 #### [facility] [address] [place], [address] ALK P 44 U/L Low 45-117 [facility] Comment on above: Order Comment: Order Date: 07/27/24 Order Info: 785-1 - CMP Order Info: - LIPID Order Info: [id number] - MG Order Info: 3 - TSH Performed By: #### L 501.9520, L500.4100, L100.0100, L501.5200, L500.4050 #### [facility] [address] [place], [address] ALT [Catalytic activity/Vol] 19 U/L Normal 13-56 [facility] Comment on above: Order Comment: Order Date: 07/27/24 Order Info: 86-1 - CMP Order Info: [id number] - LIPID Order Info: [id number] - MG Order Info: 3 - TSH Performed By: #### L 501.9520, L500.4100, L100.0100, L501.5200, L500.4050 #### [facility] [address] [place], [address] AST [Catalytic activity/Vol] 17 U/L Normal 15-37 [facility] Comment on above: Order Comment: Order Date: 07/27/24 Order Info: [id number] - CMP Order Info: [id number] - LIPID Order Info: [id number] - MG Order Info: 3015-3 - TSH Performed By: #### L 501.9520, L500.4100, L100.0100, L501.5200, L500.4050 #### [facility] [address] [place], [address] Bilirubin [Mass/Vol] 0.60 mg/dL Normal 0.20-1.00 [facility] Comment on above: Order Comment: Order Date: 07/27/24 Order Info: 0786-1 - CMP Order Info: [id number] - LIPID Order Info: [id number] - MG Order Info: 3016-3 - TSH Result Comment: For patients on eltrombopag therapy, use of Dimension [place] TBIL is not recommended. Performed By: #### L 501.9520, L500.4100, L100.0100, L501.5200, L500.4050 #### [facility] [address] [place], [address] BUN/CRE 17.3 RATIO Normal 10-20 [facility] Comment on above: Order Comment: Order Date: 07/27/24 Order Info: 0786-1 - CMP Order Info: [id number] - LIPID Order Info: [id number] - MG Order Info: 3016-3 - TSH Performed By: #### L 501.9520, L500.4100, L100.0100, L501.5200, L500.4050 #### [facility] [address] [place], [address] CA,Total 9.0 mg/dL Normal 8.5-10.1 [facility] Comment on above: Order Comment: Order Date: 07/27/24 Order Info: [id number] - CMP Order Info: [id number] - LIPID Order Info: [id number] - MG Order Info: 3016-3 - TSH Performed By: #### L 501.9520, L500.4100, L100.0100, L501.5200, L500.4050 #### [facility] [address] [place], [address] Chloride [Moles/Vol] 108 mmol/L High 98-107 [facility] Comment on above: Order Comment: Order Date: 07/27/24 Order Info: 86-1 - CMP Order Info: [id number] - LIPID Order Info: [id number] - MG Order Info: 3 - TSH Performed By: #### L 501.9520, L500.4100, L100.0100, L501.5200, L500.4050 #### [facility] [address] [place], [address] CO2 [Moles/Vol] 24.0 mmol/L Normal 21.0-32.0 [facility] Comment on above: Order Comment: Order Date: 07/27/24 Order Info: 785-1 - CMP Order Info: [id number] - LIPID Order Info: [id number] - MG Order Info: 3 - TSH Performed By: #### L 501.9520, L500.4100, L100.0100, L501.5200, L500.4050 #### [facility] [address] [place], [address] Creatinine [Mass/Vol] 0.70 mg/dL Normal 0.55-1.02 [facility] Comment on above: Order Comment: Order Date: 07/27/24 Order Info: 785-1 - CMP Order Info: [id number] - LIPID Order Info: [id number] - MG Order Info: 3 - TSH Result Comment: The validity of the calculated GFR GFRAA in patients over 70 years has not been determined. Clinical correlation is essential. Performed By: #### L 501.9520, L500.4100, L100.0100, L501.5200, L500.4050 #### [facility] [address] [place], [address] EST GFR - AA 119 mL/min Normal >60 [facility] Comment on above: Order Comment: Order Date: 07/27/24 Order Info: [id number] - CMP Order Info: [id number] - LIPID Order Info: [id number] - MG Order Info: [id number] - TSH Result Comment: Afri can Citizen Of [place] GFR Calc Performed By: #### L 501.9520, L500.4100, L100.0100, L501.5200, L500.4050 #### [facility] [address] [place], [address] GAP 6 Normal 5-15 [facility] Comment on above: Order Comment: Order Date: 07/27/24 Order Info: [id number] - CMP Order Info: [id number] - LIPID Order Info: [id number] - MG Order Info: [id number] - TSH Performed By: #### L 501.9520, L500.4100, L100.0100, L501.5200, L500.4050 #### [facility] [address] [place], [address] GFR/1.73 sq M.predicted among non-blacks MDRD (S/P/Bld) [Vol rate/Area] 98 mL/min/{1.73_m2} Normal >60 [facility] Comment on above: Order Comment: Order Date: 07/27/24 Order Info: [id number]- - CMP Order Info: [id number] - LIPID Order Info: [id number] - MG Order Info: [id number] - TSH Result Comment: Non- GFR Calc Performed By: #### L 501.9520, L500.4100, L100.0100, L501.5200, L500.4050 #### [facility] [address] [place], [address] Globulin (S) [Mass/Vol] 3.3 g/dL Normal 2.2-4.2 [facility] Comment on above: Order Comment: Order Date: 07/27/24 Order Info: [id number] - CMP Order Info: [id number] - LIPID Order Info: [id number] - MG Order Info: [id number] - TSH Performed By: #### L 501.9520, L500.4100, L100.0100, L501.5200, L500.4050 #### [facility] [address] [place], [address] Glucose [Mass/Vol] 90 mg/dL Normal 74-106 [facility] Comment on above: Order Comment: Order Date: 07/27/24 Order Info: [id number] - CMP Order Info: [id number] - LIPID Order Info: [id number] - MG Order Info: [id number] - TSH Performed By: #### L 501.9520, L500.4100, L100.0100, L501.5200, L500.4050 #### [facility] [address] [place], [address] Potassium [Moles/Vol] 4.0 mmol/L Normal 3.5-5.1 [facility] Comment on above: Order Comment: Order Date: 07/27/24 Order Info: 07-1 - CMP Order Info: [id number] - LIPID Order Info: [id number] - MG Order Info: [id number] - TSH Performed By: #### L 501.9520, L500.4100, L100.0100, L501.5200, L500.4050 #### [facility] [address] [place], [address] Sodium [Moles/Vol] 138 mmol/L Normal 136-145 [facility] Comment on above: Order Comment: Order Date: 07/27/24 Order Info: 07-1 - CMP Order Info: [id number] - LIPID Order Info: [id number] - MG Order Info: [id number] - TSH Performed By: #### L 501.9520, L500.4100, L100.0100, L501.5200, L500.4050 #### [facility] [address] [place], [address] T PROT 7.0 g/dL Normal 6.4-8.2 [facility] Comment on above: Order Comment: Order Date: 07/27/24 Order Info: [id number] - CMP Order Info: [id number] - LIPID Order Info: [id number] - MG Order Info: [id number] - TSH Performed By: #### L 501.9520, L500.4100, L100.0100, L501.5200, L500.4050 #### [facility] [address] [place], [address] Urea nitrogen [Mass/Vol] 12 mg/dL Normal 7-18 [facility] Comment on above: Order Comment: Order Date: 07/27/24 Order Info: [id number] - CMP Order Info: [id number] - LIPID Order Info: [id number] - MG Order Info: 301-3 - TSH Performed By: #### L 501.9520, L500.4100, L100.0100, L501.5200, L500.4050 #### [facility] [address] [place], [address] Lipid Profileon 08-06-2024 Cholesterol [Mass/Vol] 149 mg/dL Normal 200 [facility] Comment on above: Order Comment: Order Date: 07/27/24 Order Info: 07- - CMP Order Info: [id number] - LIPID Order Info: [id number] - MG Order Info: [id number] - TSH Result Comment: <200 mg/dL Desirable 200-240 mg/dL Borderline >240 mg/dL High Risk Performed By: #### L 501.9520, L500.4100, L100.0100, L501.5200, L500.4050 #### [facility] [address] [place], [address] Cholesterol in HDL [Mass/Vol] 77 mg/dL Normal [facility] Comment on above: Order Comment: Order Date: 07/27/24 Order Info: [id number] - CMP Order Info: [id number] - LIPID Order Info: [id number] - MG Order Info: [id number] - TSH Result Comment: The drugs N-Acetylcysteine and Metamizole may falsely depress this assay. Reference Range HDL <40 mg/dL Low HDL Cholesterol HDL >or= 60 mg/dL High HDL Cholesterol Performed By: #### L 501.9520, L500.4100, L100.0100, L501.5200, L500.4050 #### [facility] [address] [place], [address] Cholesterol in LDL [Mass/Vol] 62 mg/dL Normal 0-130 [facility] Comment on above: Order Comment: Order Date: 07/27/24 Order Info: [id number] - CMP Order Info: [id number] - LIPID Order Info: [id number] - MG Order Info: [id number] - TSH Performed By: #### L 501.9520, L500.4100, L100.0100, L501.5200, L500.4050 #### [facility] [address] [place], [address] Cholesterol in VLDL [Mass/Vol] 10 mg/dL Normal 5-40 [facility] Comment on above: Order Comment: Order Date: 07/27/24 Order Info: 0786 - CMP Order Info: [id number] - LIPID Order Info: [id number] - MG Order Info: [id number] - TSH Performed By: #### L 501.9520, L500.4100, L100.0100, L501.5200, L500.4050 #### [facility] [address] [place], [address] Triglyceride [Mass/Vol] 49 mg/dL Normal [facility] Comment on above: Order Comment: Order Date: 07/27/24 Order Info: [id number]- - CMP Order Info: [id number] - LIPID Order Info: [id number] - MG Order Info: [id number] - TSH Result Comment: The drugs N-Acetylcysteine and Metamizole may falsely depress this assay. Serum Triglycerides Reference Interval Normal <150 mg/dL Borderline high 150 - 199 mg/dL High 200 - 499 mg/dL Very High > or = 500 mg/dL Performed By: #### L 501.9520, L500.4100, L100.0100, L501.5200, L500.4050 #### [facility] [address] [place], [address] Magnesiumon 08-06-2024 Magnesium [Mass/Vol] 1.7 mg/dL Normal 1.6-2.6 [facility] Comment on above: Order Comment: Order Date: 07/27/24 Order Info: [id number] - CMP Order Info: [id number] - LIPID Order Info: [id number] - MG Order Info: [id number] - TSH Performed By: #### L 501.9520, L500.4100, L100.0100, L501.5200, L500.4050 #### [facility] [address] [place], [address] Thyroid Stim Hormone (TSH)on 08-06-2024 TSH 1.950 uIU/mL Normal 0.358-3.74 0 [facility] Comment on above: Order Comment: Order Date: 07/27/24 Order Info: 86 - CMP Order Info: [id number] - LIPID Order Info: [id number] - MG Order Info: [id number] - TSH Performed By: #### L 501.9520, L500.4100, L100.0100, L501.5200, L500.4050 #### [facility] [address] [place], [address] Urinalysis, Completeon 08-06 EPI,SQUAMOUS 5-10 SEEN Normal 5-10 [facility] Comment on above: Order Comment: CLEAN CATCH Performed By: #### L 400.0001 #### [facility] [address] [place], [address] BACTERIA 0 SEEN Normal None Seen [facility] Comment on above: Order Comment: CLEAN CATCH Performed By: #### L 400.0001 #### [facility] [address] [place], [address] Mucus Ql (Urine sed) 0 SEEN Normal [facility] Comment on above: Order Comment: CLEAN CATCH Performed By: #### L 400.0001 #### [facility] [address] [place], [address] RBC 0 SEEN Normal 0-5 [facility] Comment on above: Order Comment: CLEAN CATCH Performed By: #### L 400.0001 #### [facility] [address] [place], [address] WBC 0 SEEN Normal 0-5 [facility] Comment on above: Order Comment: CLEAN CATCH Performed By: #### L 400.0001 #### [facility] [address] [place], [address] XR KNEE RIGHT 3 VIEWS (SPECI FY VIEWS IN COMMENTS)on 02-12-2024 XR KNEE RIGHT 3 VIEWS (SPECIFY VIEWS IN COMMENTS) EXAMINATION: XR KNEE RIGHT 3 VIEWS (SPECIFY VIEWS IN COMMENTS) HISTORY: ORDERING SYSTEM PROVIDED HISTORY: Pain, TECHNOLOGIST PROVIDED HISTORY: Illness/Other Reason for exam: p/o 6 week follow up right knee Cancer History: Unknown Surgery, RadiationHistory: right knee 12/28/23 Encounter Type: Subsequent/Follow-up Additional signs and symptoms: none ORDERING SYSTEM PROVIDED DIAGNOSIS CODES: R52 Pain COMPARISON: January 08, 2024. FINDINGS: 3 images are submitted. Patient is status post total right knee arthroplasty. No fracture. No signs of hardware complications. Expected postsurgical appearance present IMPRESSION: 1. Status post total right knee arthroplasty. Workstation ID: [id number] Dictated by: JANEY GAONA on ThuFeb 12, 2024 7:41:23 PM EDT Transcribed by: JANEY GAONA on ThuFeb 12, 2024 7:41:23 PM EDT Finalized by: JANEY GAONA on ThuFeb 12, 2024 7:41:23 PM EDT [facility] Comment on above: Order Comment: Injur y/Trauma or Illness?:Illness/Other How long have you had these symptoms (acute/chronic)?:Acute Reason for exam?:p/o 6 week follow up right knee History of cancer?:Unknown Surgeries, chemotherapy, or radiation?:right knee 12/28/23 Type of Exam?:Subsequent/Follow-up Additional signs and symptoms?:none XR KNEE RIGHT 2 VIEWS (STAND DECLAN)on 01-08-2024 XR KNEE RIGHT 2 VIEWS (STANDARD) EXAMINATION: XR KNEE RIGHT 2 VIEWS (STANDARD) HISTORY: ORDERING SYSTEM PROVIDED HISTORY: Follow-up exam, TECHNOLOGIST PROVIDED HISTORY: Illness/Other Reason for exam: p/o 2 week follow up right knee surgery Cancer History: Unknown Surgery, RadiationHistory: right knee 12/28/23 Encounter Type: Subsequent/Follow-up Additional signs and symptoms: degenerative arthrosis ORDERING SYSTEM PROVIDED DIAGNOSIS CODES: Z09 Follow-up exam COMPARISON: 12/28/2023. FINDINGS: Two views of the right knee. Postoperative changes suggestive of prior ACL repair. Postoperative changes of right total knee replacement. Hardware components are well seated with appropriate alignment. No periprosthetic fracture or hardware loosening. Joint effusion present.. Ullin in place anteriorly. IMPRESSION: Intact knee replacement. [employer] Workstation ID: [id number] Dictated by: TOBY ORTEGA on ThuJan 11, 2024 11:19:55 AM EDT Transcribed by: KYLAH GE on ThuJan 11, 2024 12:01:48 PM EDT Finalized by: TOBY ORTEGA on ThuJan 11, 2024 11:01:55 PM EDT Normal [facility] Comment on above: Order Comment: Injur y/Trauma or Illness?:Illness/Other How long have you had these symptoms (acute/chronic)?:Unknown Reason for exam?:p/o 2 week follow up right knee surgery History of cancer?:Unknown Surgeries, chemotherapy, or radiation?:right knee 12/28/23 Type of Exam?:Subsequent/Follow-up Additional signs and symptoms?:degenerative arthrosis XR KNEE RIGHT 2 VIEWS (STAND DECLAN)on 12-28-2023 XR KNEE RIGHT 2 VIEWS (STANDARD) EXAMINATION: XR KNEE RIGHT 2 VIEWS (STANDARD) 12/28/2023 9:52 am HISTORY: ORDERING SYSTEM PROVIDED HISTORY: S/P ARTHOPLASTY, TECHNOLOGIST PROVIDED HISTORY: Illness/Other Reason for exam: S/P Rt. TKA in OR Cancer History: Unknown Surgery, RadiationHistory: Unknown Encounter Type: Initial Additional signs and symptoms: . ORDERING SYSTEM PROVIDED DIAGNOSIS CODES: M17.11 Osteoarthritis of right knee, unspecified osteoarthritis type M25.361 Knee instability, right Z98.890 S/P right knee arthroscopy COMPARISON: Right knee radiograph 11/12/2023 FINDINGS: Changes of right knee arthroplasty with components in anatomic alignment. No periprosthetic fracture. Hardware is intact. Expected postsurgical suprapatellar joint effusion, soft tissue gas, and swelling. Anterior knee surgical skin todd. IMPRESSION: Anatomic alignment of right knee arthroplasty. No evidence of complication. Workstation ID: [id number] Dictated by: CHELY BORJAS on ThuDec 28, 2023 12:20:26 PM EST Transcribed by: CHELY BORJAS on ThuDec 28, 2023 12:20:26 PM EST Finalized by: CHELY BORJAS on ThuDec 28, 2023 12:20:26 PM EST Normal [facility] Comment on above: Order Comment: Injur y/Trauma or Illness?:Illness/Other How long have you had these symptoms (acute/chronic)?:Chronic Reason for exam?:S/P Rt. TKA in OR History of cancer?:Unknown Surgeries, chemotherapy, or radiation?:Unknown Type of Exam?:Initial Additional signs and symptoms?:. Basic metabolic 2000 panelon 12-10-2023 Anion gap [Moles/Vol] 8 mmol/L Low 10 - 2 0 mmol/L [facility] Calcium [Mass/Vol] 9.2 mg/dL 8.4 - 10. 2 mg/dL [facility] Chloride [Moles/Vol] 104 mmol/L 98 - 10 8 mmol/L [facility] Creatinine [Mass/Vol] 0.80 mg/dL 0.40 - 1.10 mg/dL [facility] GFR/1.73 sq M.predicted CKD-EPI (S/P/Bld) [Vol rate/Area] 95 - PINF [facility] Comment on above: Estimated GFR was ca lculated using the 2020 CKD-EPI creatinine equation. Glucose [Mass/Vol] 71 mg/dL 65 - 99 mg/dL [facility] HCO3 [Moles/Vol] 30 mmol/L 21 - 32 mmol/L [facility] Interpretation and review of laboratory results Abnormal [facility] Potassium [Moles/Vol] 3.9 mmol/L 3.5 - 5.1 mmol/L [facility] Sodium [Moles/Vol] 138 mmol/L 135 - 145 mmol/L [facility] Urea nitrogen [Mass/Vol] 14 mg/dL 8 - 25 mg/dL [facility] Urea nitrogen/Creatinine [Mass ratio] 17.5 mg/mg 10.0 - 20.0 [facility] has implemented the eGFR calculation approach that does not have a coefficient for race that conforms to the NKF-ASN Task Force Recommendations. [facility] CBC Auto Differentialon 11-26 Basophils (Bld) [#/Vol] 0.03 10*3/uL [facility] Basophils/100 WBC (Bld) 0.6 % [facility] Eosinophils (Bld) [#/Vol] 0.07 10*3/uL [facility] Eosinophils/100 WBC (Bld) 1.4 % [facility] Erythrocyte distribution width (RBC) [Entitic vol] 12.1 % 11.6 - 14.8 % [facility] Hematocrit (Bld) [Volume fraction] 42.3 % 36.0 - 46.0 % [facility] Hemoglobin (Bld) [Mass/Vol] 14.0 g/dL 12.0 - 16.0 g/dL [facility] Immature granulocytes (Bld) [#/Vol] 0.02 10*3/uL [facility] Immature granulocytes/100 WBC (Bld) 0.40 % [facility] Comment on above: The IG parameter is the percentage of metamyelocytes, myelocytes and promyelocytes. An immature granulocyte count (IG) of 1% or more suggests the possibility of infection, an IG count of 3% is very likely related to an infection. Lymphocytes (Bld) [#/Vol] 1.73 10*3/uL [facility] Lymphocytes/100 WBC (Bld) 33.9 % [facility] MCH (RBC) [Entitic mass] 29.4 pg 26.0 - 34.0 pg [facility] MCHC (RBC) [Mass/Vol] 33.1 g/dL 31.0 - 37.0 g/dL [facility] MCV (RBC) [Entitic vol] 88.9 fL 80.0 - 100.0 fL [facility] Monocytes (Bld) [#/Vol] 0.38 10*3/uL [facility] Monocytes/100 WBC (Bld) 7.4 % [facility] Neutrophils (Bld) [#/Vol] 2.88 10*3/uL [facility] Neutrophils/100 WBC (Bld) 56.3 % [facility] Nucleated RBC (Bld) [#/Vol] 0.00 10*3/uL [facility] Nucleated RBC/100 WBC (Bld) [Ratio] 0.0 % [facility] Platelet mean volume (Bld) [Entitic vol] 10.4 fL 9.4 - 12.4 fL [facility] Platelets (Bld) [#/Vol] 293 10*3/uL [facility] RBC (Bld) [#/Vol] 4.76 10*6/uL [facility] WBC (Bld) [#/Vol] 5.11 10*3/uL [facility] CT KNEE RIGHT WITHOUT CONTRA STon 12-10-2023 CT KNEE RIGHT WITHOUT CONTRAST EXAMINATION: CT KNEE RIGHT WITHOUT CONTRAST HISTORY: ORDERING SYSTEM PROVIDED HISTORY: Preoperative for upcoming Rt TKR scheduled for 12/28/23, TECHNOLOGIST PROVIDED HISTORY: Illness/Other Reason for Exam: Preop, HAI right knee Encounter Type: Ongoing Additional Signs and Symptoms: . ORDERING SYSTEM PROVIDED DIAGNOSIS CODES: M17.11 Osteoarthritis of right knee, unspecified osteoarthritis type M25.361 Knee instability, right Z98.890 S/P right knee arthroscopy COMPARISON: 11/12/2023. TECHNIQUE: Axial CT imaging of the right hip, knee and ankle without contrast. [facility] protocol. Dose reduction techniques were achieved by using automated exposure control and/or adjustment of mA and/or kV according to patient size and/or use of iterative reconstruction technique. FINDINGS: KNEE: No prior ACL reconstruction. Tibial interference screw is missing. Femoral interference screw demonstrates increased periprosthetic lucency. Severe medial knee compartment joint space narrowing with subchondral sclerosis and large marginal osteophytes. Lateral knee compartment joint space narrowing with large marginal osteophytes. Mild marginal osteophytes of the patellofemoral compartment. Moderate suprapatellar joint effusion. Muscle bulk appears normal. HIP: No acute osseous abnormality. No CT evidence of avascular necrosis of the femoral head. Normal alignment. No significant hip osteoarthritis. No significant joint effusion. ANKLE: No acute osseous abnormality. Normal joint alignment. No significant tibiotalar osteoarthritis. Surrounding soft tissues appear unremarkable. MISCELLANEOUS: Left knee prior ACL reconstruction with interference screw seen at the tibia and femur. IMPRESSION: Right knee tricompartmental osteoarthritis with prior ACL reconstruction. ST/lab Workstation ID: [id number] Dictated by: TOBY ORTEGA on ThuDec 10, 2023 10:05:36 AM EST Transcribed by: AMRITA CRUZ on ThuDec 10, 2023 10:22:26 AM EST Finalized by: TOBY ORTEGA on ThuDec 10, 2023 4:44:44 PM EST Normal [facility] Comment on above: Order Comment: Kelly paul only schedule at [facility] [place]. Do not schedule Ct scan appointment with patient. Ordering Doctor's office will call to schedule Ct scan appointment. Injury/Trauma or Illness?:Illness/Other How long have you had these symptoms (acute/chronic)?:Chronic Reason for exam?:pre op, hai right knee Type of Exam?:Ongoing Additional signs and symptoms?:. XR KNEE RIGHT 4+ VIEWS (SPEC CHRISTIANNE VIEWS IN COMMENTS)on 11-12-2023 XR KNEE RIGHT 4+ VIEWS (SPECIFY VIEWS IN COMMENTS) EXAMINATION: XR KNEE RIGHT 4+ VIEWS (SPECIFY VIEWS IN COMMENTS) 11/12/2023 8:17 am HISTORY: ORDERING SYSTEM PROVIDED HISTORY: Pain, TECHNOLOGIST PROVIDED HISTORY: Illness/Other Reason for exam: chronic right knee pain affecting walking Cancer History: Unknown Surgery, RadiationHistory: Unknown Encounter Type: Subsequent/Follow-up Additional signs and symptoms: none ORDERING SYSTEM PROVIDED DIAGNOSIS CODES: R52 Pain IMPRESSION: FINDINGS/ Prior ACL repair. Rixysljr-bj-vnirfd degeneration without acute fracture or dislocation most pronounced in the medial compartment. ISABEL/manish Workstation ID: [id number] Dictated by: KATELYN CONRAD on ThuNov 12, 2023 9:12:25 AM EST Transcribed by: JULIANN SANDHU on ThuNov 12, 2023 9:38:36 AM EST Finalized by: KATELYN CONRAD on ThuNov 12, 2023 12:11:51 PM EST Normal [facility] Comment on above: Order Comment: Injur y/Trauma or Illness?:Illness/Other How long have you had these symptoms (acute/chronic)?:Chronic Reason for exam?:chronic right knee pain affecting walking History of cancer?:Unknown Surgeries, chemotherapy, or radiation?:Unknown Type of Exam?:Subsequent/Follow-up Additional signs and symptoms?:none Absolute lymphocyte countOrd ered By: Nupur Garcia on 08-06-2023 Lymphocytes Auto (Unsp spec) [#/Vol] 2.40 10*3/uL 0.83-4.51 [facility] Basophil percentageOrdered B y: Nupur Garcia on 08-06-2023 Basophil percentage 0 SEEN /hpf 0-5 [facility] Basophils/100 WBC (Bld) 0.4 % 0-1 [facility] Bilirubin [Mass/Vol] 0.40 mg/dL 0.20-1.00 [facility] Comment on above: For patients on eltr ombopag therapy, use of Dimension [place] TBIL is not recommended. Chloride [Moles/Vol] 101 mmol/L 98-107 [facility] Cholesterol [Mass/Vol] 199 mg/dL <200 [facility] Comment on above: <200 mg/dL Desirable 200-240 mg/dL Borderline >240 mg/dL High Risk Eosinophils/100 WBC (Bld) 1.0 % 0-5 [facility] Glucose [Mass/Vol] 90 mg/dL 74-106 [facility] Neutrophils (Bld) [#/Vol] 3.9 10*3/uL 2.0-7.7 [facility] Neutrophils/100 WBC (Bld) 58.0 % 47-70 [facility] Potassium [Moles/Vol] 3.7 mmol/L 3.5-5.1 [facility] Protein [Mass/Vol] 7.6 g/dL 6.4-8.2 [facility] Sodium [Moles/Vol] 135 mmol/L 136-145 [facility] Triglyceride [Mass/Vol] 61 mg/dL <199 [facility] Comment on above: The drugs N-Acetylcy steine and Metamizole may falsely depress this assay.Serum Triglycerides Reference Interval Normal <150 mg/dL Borderline high 150 - 199 mg/dL High 200 - 499 mg/dL Very High > or = 500 mg/dL WBC (Bld) [#/Vol] 6.7 10*3/uL 4.4-11.0 [facility] Bilirubin Test strip Ql (U)O rdered By: Nupur Garcia on 08-06-2023 Bilirubin Ql (U) Negative Negative [facility] Blood erythrocytes count (nu mber/volume)Ordered By: Nupur Garcia on 08-06-2023 RBC (Bld) [#/Vol] 4.71 10*6/uL 4.2-5.4 [facility] Blood hemoglobin measurement (mass/volume)Ordered By: Nupur Garcia on 08-06-2023 Hemoglobin (Bld) [Mass/Vol] 14.1 g/dL 12.0-15.0 [facility] Blood lymphocytes/100 leukoc ytesOrdered By: Nupur Garcia on 08-06-2023 Lymphocytes/100 WBC (Bld) 36.0 % 19-41 [facility] Blood monocytes/100 leukocyt esOrdered By: Nupur Garcia on 08-06-2023 Monocytes/100 WBC (Bld) 4.5 % 0-10 [facility] Blood platelet mean volumeOr dered By: Nupur Garcia on 08-06-2023 Platelet mean volume (Bld) [Entitic vol] 10.1 fL 6.2-12.0 [facility] Determination of erythrocyte mean corpuscular volume (MCV)Ordered By: Nupur Garcia on 08-06-2023 MCV (RBC) [Entitic vol] 88.5 fL 81-99 [facility] Hematocrit Auto (Bld) [Volum e fraction]Ordered By: Nupur Garcia on 08-06-2023 Hematocrit (Bld) [Volume fraction] 41.7 % 37-47 [facility] Ketones Test strip Ql (U)Ord ered By: Nupur Garcia on 08-06-2023 Ketones Ql (U) Negative Negative [facility] - Chemistry and C hemistry - challengeOrdered By: Nupur Garcia on 08-06-2023 ALP [Catalytic activity/Vol] 56 U/L 45-117 [facility] ALT [Catalytic activity/Vol] 32 U/L 13-56 [facility] CO2 [Moles/Vol] 30.0 mmol/L 21.0-32.0 [facility] Globulin (S) [Mass/Vol] 3.6 g/dL 2.2-4.2 [facility] Urea nitrogen/Creatinine [Mass ratio] 20.0 mg/mg 10-20 [facility] - Hematology and Cell countsOrdered By: Nupur Garcia on 08-06-2023 Erythrocyte distribution width (RBC) [Entitic vol] 38.2 fL 35.1-43.9 [facility] Erythrocyte distribution width (RBC) [Ratio] 11.9 % 11.6-14.6 [facility] Immature granulocytes/100 WBC (Bld) 0.100 % 0.0-0.9 [facility] Comment on above: IG% - Immature Granu locytes (promyelocytes, myelocytes and metamyelocytes) > 1% indicates that a LEFT SHIFT is Present. MCH (RBC) [Entitic mass] 29.9 pg 27.0-32.0 [facility] Nucleated RBC/100 WBC (Bld) [Ratio] 0 % 0-5 [facility] MCHC Auto (RBC) [Mass/Vol]Or dered By: Nupur Garcia on 08-06-2023 MCHC (RBC) [Mass/Vol] 33.8 g/dL 32-36 [facility] Mucus LM Ql (Urine sed)Order ed By: Nupur Garcia on 08-06-2023 Mucus Ql (Urine sed) 0 SEEN /hpf [facility] Nitrite Test strip Ql (U)Ord ered By: Nupur Garcia on 08-06-2023 Nitrite Ql (U) Negative Negative [facility] No Panel InformationOrdered By: Nupur Garcia on 08-06-2023 Estimated GFR (MDRD) Amer 78 mL/min >60 [facility] Comment on above: GFR Calc Estimated GFR (MDRD) Non-Af Amer 65 mL/min >60 [facility] Comment on above: Non- GFR Calc Thyroid Stimulating Hormone (TSH) 1.39 uIU/mL 0.358-3.74 [facility] Platelets bldOrdered By: Altaf Garcia on 08-06-2023 Platelets (Bld) [#/Vol] 303 10*3/uL 150-450 [facility] Protein Test strip Ql (U)Ord ered By: Nupur Garcia on 08-06-2023 Protein Ql (U) Negative Negative [facility] Serum or plasma albumin santa urement (mass/volume)Ordered By: Nupur Garcia on 08-06-2023 Albumin [Mass/Vol] 4.0 g/dL 3.2-5.0 [facility] Serum or plasma albumin/glob ulin mass ratioOrdered By: Nupur Garcia on 08-06-2023 Albumin/Globulin [Mass ratio] 1.1 {ratio} 0.9-2.4 [facility] Serum or plasma calcium santa urement (mass/volume)Ordered By: Nupur Garcia on 08-06-2023 Calcium [Mass/Vol] 9.0 mg/dL 8.5-10.1 [facility] Serum or plasma cholesterol in HDL measurement (mass/volume)Ordered By: Nupur Garcia on 08-06-2023 Cholesterol in HDL [Mass/Vol] 77 mg/dL >40 [facility] Comment on above: The drugs N-Acetylcy steine and Metamizole may falsely depress this assay. Reference Range HDL <40 mg/dL Low HDL Cholesterol HDL >or= 60 mg/dL High HDL Cholesterol Serum or plasma cholesterol in VLDL measurement (mass/volume)Ordered By: Nupur Garcia on 08-06-2023 Cholesterol in VLDL [Mass/Vol] 12 mg/dL 5-40 [facility] Serum or plasma creatinine m easurement (mass/volume)Ordered By: Nupur Garcia on 08-06-2023 Creatinine [Mass/Vol] 1.00 mg/dL 0.55-1.02 [facility] Comment on above: The validity of the calculated GFR & GFRAA in patients over 70 years has not been determined. Clinical correlation is essential. Serum or plasma low density lipoprotein (LDL) cholesterol measurement (mass/volume)Ordered By: Nupur Garcia on 08-06-2023 Cholesterol in LDL [Mass/Vol] 110 mg/dL 0-130 [facility] Serum or plasma urea nitroge n measurement (mass/volume)Ordered By: Nupur Garcia on 08-06-2023 Urea nitrogen [Mass/Vol] 20 mg/dL 7-18 [facility] Squamous epithelial cells de tection in urine sediment by light microscopyOrdered By: Nupur Garcia on 08-06-2023 Epithelial cells.squamous LM Ql (Urine sed) 0 SEEN /hpf 5-10 [facility] Thin prep Papanicolaou smear with manual screeningOrdered By: Nupur Garcia on 08-06-2023 Thin prep Papanicolaou smear with manual screening 20 U/L 15-37 [facility] Thin prep Papanicolaou smear with manual screening 4 5-15 [facility] Urine blood detectionOrdered By: Nupur Garcia on 08-06-2023 RBC Ql (U) Negative Negative [facility] RBC Ql (U) 0 SEEN /hpf 0-5 [facility] Urine clarityOrdered By: Altaf Garcia on 08-06-2023 Clarity (U) Clear Clear [facility] Urine color determinationOrd ered By: Nupur Garcia on 08-06-2023 Color (U) Yellow Yellow [facility] Urine glucose detectionOrder ed By: Nupur Garcia on 08-06-2023 Glucose Ql (U) Normal mg/dl Normal [facility] Urine leukocyte esterase det ection by dipstickOrdered By: Nupur Garcia on 08-06-2023 Leukocyte esterase Test strip Ql (U) Negative Negative [facility] Urine pHOrdered By: Nupur caceres on 08-06-2023 pH (U) 6.5 [pH] 5.0 - 8.0 [facility] Urine sediment bacteria coun t by microscopy (number/high power field)Ordered By: Nupur Garcia on 08-06-2023 Bacteria LM.HPF (Urine sed) [#/Area] 0 /[HPF] None Seen [facility] Urine specific gravity measu rementOrdered By: Nupur Garcia on 08-06-2023 Specific gravity (U) [Rel density] 1.010 1.002-1.03 0 [facility] Urobilinogen Auto test strip Ql (U)Ordered By: Nupur Garcia on 08-06-2023 Urobilinogen Ql (U) Normal mg/dl Normal [facility] Absolute lymphocyte countOrd ered By: Can Kimble on 07-28-2023 Lymphocytes Auto (Unsp spec) [#/Vol] 0.81 10*3/uL 0.83-4.51 [facility] Basophil percentageOrdered B y: Can Kimble on 07-28-2023 Basophils/100 WBC (Bld) 0.3 % 0-1 [facility] Chloride [Moles/Vol] 102 mmol/L 98-107 [facility] Eosinophils/100 WBC (Bld) 1.9 % 0-5 [facility] Glucose [Mass/Vol] 97 mg/dL 74-106 [facility] Neutrophils (Bld) [#/Vol] 4.3 10*3/uL 2.0-7.7 [facility] Neutrophils/100 WBC (Bld) 75.7 % 47-70 [facility] Potassium [Moles/Vol] 3.4 mmol/L 3.5-5.1 [facility] Sodium [Moles/Vol] 135 mmol/L 136-145 [facility] WBC (Bld) [#/Vol] 5.7 10*3/uL 4.4-11.0 [facility] Basophil percentage 0 SEEN /hpf 0-5 [facility] Bilirubin Test strip Ql (U)O rdered By: Can Kimble on 07-28-2023 Bilirubin Ql (U) Negative Negative [facility] Blood erythrocytes count (nu mber/volume)Ordered By: Can Kimble on 07-28-2023 RBC (Bld) [#/Vol] 4.57 10*6/uL 4.2-5.4 [facility] Blood hemoglobin measurement (mass/volume)Ordered By: Can Kimble on 07-28-2023 Hemoglobin (Bld) [Mass/Vol] 13.5 g/dL 12.0-15.0 [facility] Blood lymphocytes/100 leukoc ytesOrdered By: Can Kimble on 07-28-2023 Lymphocytes/100 WBC (Bld) 14.1 % 19-41 [facility] Blood monocytes/100 leukocyt esOrdered By: Canjose maria Kimble on 07-28-2023 Monocytes/100 WBC (Bld) 7.8 % 0-10 [facility] Blood platelet mean volumeOr dered By: Can Kimble on 07-28-2023 Platelet mean volume (Bld) [Entitic vol] 9.5 fL 6.2-12.0 [facility] Determination of erythrocyte mean corpuscular volume (MCV)Ordered By: Can Kimble on 07-28-2023 MCV (RBC) [Entitic vol] 88.8 fL 81-99 [facility] Hematocrit Auto (Bld) [Volum e fraction]Ordered By: Can Kimble on 07-28-2023 Hematocrit (Bld) [Volume fraction] 40.6 % 37-47 [facility] Ketones Test strip Ql (U)Ord ered By: Can Kimble on 07-28-2023 Ketones Ql (U) Negative Negative [facility] Laboratory - Chemistry and C hemistry - challengeOrdered By: Can Kimble on 07-28-2023 CO2 [Moles/Vol] 30.0 mmol/L 21.0-32.0 [facility] Urea nitrogen/Creatinine [Mass ratio] 17.6 mg/mg 10-20 [facility] Laboratory - Hematology and Cell countsOrdered By: Can Kimble on 07-28-2023 Erythrocyte distribution width (RBC) [Entitic vol] 40.2 fL 35.1-43.9 [facility] Erythrocyte distribution width (RBC) [Ratio] 12.3 % 11.6-14.6 [facility] Immature granulocytes/100 WBC (Bld) 0.200 % 0.0-0.9 [facility] Comment on above: IG% - Immature Granu locytes (promyelocytes, myelocytes and metamyelocytes) > 1% indicates that a LEFT SHIFT is Present. MCH (RBC) [Entitic mass] 29.5 pg 27.0-32.0 [facility] Nucleated RBC/100 WBC (Bld) [Ratio] 0 % 0-5 [facility] MCHC Auto (RBC) [Mass/Vol]Or dered By: Can Kimbel on 07-28-2023 MCHC (RBC) [Mass/Vol] 33.3 g/dL 32-36 [facility] Mucus LM Ql (Urine sed)Order ed By: Can Kimble on 07-28-2023 Mucus Ql (Urine sed) 0 SEEN /hpf [facility] Nitrite Test strip Ql (U)Ord ered By: Can Kimble on 07-28-2023 Nitrite Ql (U) Negative Negative [facility] No Panel InformationOrdered By: Can Kimble on 07-28-2023 Estimated Creatinine Clearance Calc 73.21 ml/min [facility] Estimated GFR (MDRD) Amer 88 mL/min >60 [facility] Comment on above: GFR Calc Estimated GFR (MDRD) Non-Af Amer 72 mL/min >60 [facility] Comment on above: Non- GFR Calc Platelets bldOrdered By: Can Kimble on 07-28-2023 Platelets (Bld) [#/Vol] 222 10*3/uL 150-450 [facility] Protein Test strip Ql (U)Ord ered By: Can Kimble on 07-28-2023 Protein Ql (U) Negative Negative [facility] Serum or plasma calcium santa urement (mass/volume)Ordered By: Can Kimble on 07-28-2023 Calcium [Mass/Vol] 8.5 mg/dL 8.5-10.1 [facility] Serum or plasma creatinine m easurement (mass/volume)Ordered By: Can Kimble on 07-28-2023 Creatinine [Mass/Vol] 0.91 mg/dL 0.55-1.02 [facility] Comment on above: The validity of the calculated GFR & GFRAA in patients over 70 years has not been determined. Clinical correlation is essential. Serum or plasma urea nitroge n measurement (mass/volume)Ordered By: Can Kimble on 07-28-2023 Urea nitrogen [Mass/Vol] 16 mg/dL 7-18 [facility] Squamous epithelial cells de tection in urine sediment by light microscopyOrdered By: Can Kimble on 07-28-2023 Epithelial cells.squamous LM Ql (Urine sed) 0 SEEN /hpf 5-10 [facility] Thin prep Papanicolaou smear with manual screeningOrdered By: Can Kimble on 07-28-2023 Thin prep Papanicolaou smear with manual screening 3 5-15 [facility] Urine blood detectionOrdered By: Can Kimble on 07-28-2023 RBC Ql (U) Negative Negative [facility] RBC Ql (U) 0 SEEN /hpf 0-5 [facility] Urine clarityOrdered By: Can Kimble on 07-28-2023 Clarity (U) Clear Clear [facility] Urine color determinationOrd ered By: Can Kimble on 07-28-2023 Color (U) Yellow Yellow [facility] Urine glucose detectionOrder ed By: Can Kimble on 07-28-2023 Glucose Ql (U) Normal mg/dl Normal [facility] Urine leukocyte esterase det ection by dipstickOrdered By: Can Kimble on 07-28-2023 Leukocyte esterase Test strip Ql (U) Negative Negative [facility] Urine pHOrdered By: Can moise on 07-28-2023 pH (U) 7.0 [pH] 5.0 - 8.0 [facility] Urine sediment bacteria coun t by microscopy (number/high power field)Ordered By: Can Kimble on 07-28-2023 Bacteria LM.HPF (Urine sed) [#/Area] 0 /[HPF] None Seen [facility] Urine specific gravity measu rementOrdered By: Can Kimble on 07-28-2023 Specific gravity (U) [Rel density] 1.010 1.002-1.03 0 [facility] Urobilinogen Auto test strip Ql (U)Ordered By: Can Kimble on 07-28-2023 Urobilinogen Ql (U) Normal mg/dl Normal [facility] Chocolate RASTOrdered By: Cathy Garcia on 05-22-2023 Chocolate IgE Qn (S) <0.10 kU/L Class 0 [facility] Comment on above: Performed at: [address] [id number] Director: Jluis Srivastava MD, Phone: [phone] Laboratory - Miscellaneous t estsOrdered By: Nupur Garcia on 05-22-2023 Service comment (Unsp spec) [Interp] Comment . [facility] Comment on above: Levels of Specific I gE Class Description of Class ----- < 0.10 0 Negative 0.10 - 0.31 0/I Equivocal/Low 0.32 - 0.55 I Low 0.56 - 1.40 II Moderate 1.41 - 3.90 III High 3.91 - 19.00 IV Very High 19.01 - 100.00 V Very High >100.00 [facility] No Panel InformationOrdered By: Nupur Garcia on 05-22-2023 Anti-Gliadin IgA Antibody See comment [facility] Comment on above: TEST RESULTS LIMITSC eliac Disease ComprehensiveDeamidated Gliadin Abs, IgA01 7 units 0-19 Negative 0 - 19 Weak Positive 20 - 30 Moderate to Strong Positive >30Deamidated Gliadin Abs, IgG01 3 units 0-19 Negative 0 - 19 Weak Positive 20 - 30 Moderate to Strong Positive >30t-Transglutaminase (tTG) IgA01 <2 U/mL 0-3 Negative 0 - 3 Weak Positive 4 - 10 Positive >10 Tissue Transglutaminase (tTG) has been identified as the endomysial antigen. Studies have demonstr- ated that endomysial IgA antibodies have over 99% specificity for gluten sensitive enteropathy.t-Transglutaminase (tTG) IgG01 <2 U/mL 0-5 Negative 0 - 5 Weak Positive 6 - 9 Positive >9Endomysial Antibody IgA01 Negative Negative TESTING PERFORMED AT [facility]. ORIGINAL REPORT ON FILE IN LAB CONTAINS ADDITIONAL TEST SITE INFORMATION. Anti-Gliadin IgG Antibody Not Reportable [facility] [employer] Allergens (RAST) Negative . [facility] Comment on above: Allergens in this mi x are: Blue mussel Fish [place] Shrimp Tuna Tissue Transglutaminase IgG Ab Not Reportable [facility] Serum IgA measurement (units /volume)Ordered By: Nupur Garcia on 05-22-2023 IgA Qn (S) TNP [facility] Comment on above: Test not performedQN S to run testing Serum beef IgE antibody assa y (units/volume)Ordered By: Nupur Garcia on 05-22-2023 Beef IgE Qn (S) <0.10 kU/L Class 0 [facility] Serum corn IgE antibody assa y (units/volume)Ordered By: Nupur Garcia on 05-22-2023 Velarde IgE Qn (S) <0.10 kU/L Class 0 [facility] Serum cow milk IgE antibody assay (units/volume)Ordered By: Nupur Garcia on 05-22-2023 Cow milk IgE Qn (S) <0.10 kU/L Class 0 [facility] Serum peanut IgE antibody as say (units/volume)Ordered By: Nupur Garcia on 05-22-2023 Peanut IgE Qn (S) <0.10 kU/L Class 0 [facility] Serum pork IgE antibody assa y (units/volume)Ordered By: Nupur Garcia on 05-22-2023 Pork IgE Qn (S) <0.10 kU/L Class 0 [facility] Serum soybean IgE antibody a ssay (units/volume)Ordered By: Nupur Garcia on 05-22-2023 Soybean IgE Qn (S) <0.10 kU/L Class 0 [facility] Serum tissue transglutaminas e IgA antibody assay (units/volume)Ordered By: Nupur Garcia on 05-22-2023 tTG IgA Qn (S) Not Reportable [facility] Serum wheat IgE antibody ass ay (units/volume)Ordered By: Nupur Garcia on 05-22-2023 Wheat IgE Qn (S) <0.10 kU/L Class 0 [facility] Serum whole egg IgE antibody assay (units/volume)Ordered By: Nupur Garcia on 05-22-2023 Whole Egg IgE Qn (S) <0.10 kU/L Class 0 [facility] LG Jt Injection/Arthrocentes is: R kneeon 05-21-2023 Tammy Silva CNP 05/21/2023 9:24 PM LG Jt Injection/Arthrocentesis: R knee Performed by: Tammy Silva CNP Authorized by: Tammy Silva CNP CPT 16801 - Large Joint Arthrocentesis: Consent given by: Patient Time out: Immediately prior to the procedure a time out was called Physician or proceduralist has discussed critical or nonroutine steps, procedure duration and anticipated blood loss: Yes Supporting Documentation: Indications: Pain, joint swelling and diagnostic evaluation Procedure Details: Location: Knee Site: R knee Prep: patient was prepped and draped in usual sterile fashion Needle size: 22 G Approach: Anterolateral Medications: 40 mg triamcinolone acetonide 40 mg/mL Anesthetic used: Lidocaine 1% Anesthetic amount (mL): 2 Patient tolerance: Patient tolerated the procedure well with no immediate complications [facility] 36on 04-15-2023 36 Spoke to patient and relayed results of CT - unremarkable. She states that she is better, but still having gut issues. States that Dr. Phoenix referred her to a functional medicine provider, and she will work with them to continue evaluation. Otherwise, no questions/concerns at this time. F/u PRN. Normal [facility] CT ABDOMEN PELVIS W CONTRAST on 04-13-2023 CT ABDOMEN PELVIS W CONTRAST Patient Name: DEVYN CORONA : 1980 [facility]#: [id number] Exam Date/Time: 04/10/2023 09:13 Procedure: CT ABDOMEN PELVIS W CONTRAST Ordering Provider: PHOENIX TYLER Reason For Exam: Abdominal pain, acute, nonlocalized CT ABDOMEN AND PELVIS WITH CONTRAST EXAM DATE AND TIME: 04/10/2023 9:13 AM EDT INDICATION: 43 years Female with Abdominal pain, acute, nonlocalized. Epigastric pain. COMPARISON: Abdominal ultrasound from 03/17/2023. Upper GI exam from 03/17/2023. TECHNIQUE: Transaxial sequence through the abdomen and pelvis with 3 mm reconstruction with dynamic intravenous infusion of 75 mL of 370 mg% contrast media. Coronal and sagittal reconstructions included. Dose reduction was employed with automated exposure control. Dose reduction was employed with automated exposure control. FINDINGS: Chest base: Normal. Liver: Liver is smooth in contour. Few hypodense subcentimeter hepatic lesions, measuring up to 9 mm, likely representing cysts. Biliary tree: Normal caliber. No calcified gallstones Pancreas: Normal. Spleen: Normal. Adrenals: Normal. Kidneys: Symmetric contrast enhancement without hydronephrosis. 3 mm left renal cortical hypodensity is too small to definitively characterize, but likely represents a tiny cyst. No follow-up imaging is recommended. Free fluid: Trace free fluid within the pelvis, within normal physiologic range. Vasculature: Normal caliber. Bowel: Normal caliber. Normal appendix. No hiatal hernia. Lymphadenopathy: None. Pelvic organs/viscera: No mass identified. Status post hysterectomy. Simple physiologic 2.8 cm right ovarian cyst. Osseous structures: Mild degenerative change of the spine. Mild left sacroiliac joint DJD. Minimal bilateral hip joint DJD. Mild degenerative change of the pubic symphysis.. Soft Tissues: Bilateral breast implants. IMPRESSION: No acute abnormality within the abdomen/pelvis.. Report Dictated on Electronically Signed By: Cecy Montelongo Electronically Signed Date/Time: 04/13/2023 8:[address] [facility] 3604-06-2023 36 Spoke to pt to give time, date, location, and prep for her upcoming CT. Also informed pt that she would need to have lab work dome before her CT. Pt states understanding and said that got a text from [employer] informing her that she had to get lab work and has a appt scheduled for tomorrow 04/07/23. [facility] Office Visiton 04-02-2023 Follow-up visit [id number] ErwinfloridasundeepColbykathleen vizcaino 1980 F Date Provider Department Center 04/02/2023 [id number] [facility] ALS None Family History Problem Relation Age of Onset Bradycardia Mother Lung cancer Father Alcohol abuse Father Other Father Family Status - Relation Status Age at Mother Alive Father Level of Service:24900 [place] OFFICE/OUTPATIENT ESTABLISHED MOD MDM 30-39 MIN Reason for Visit and Comments: Follow-up [910217] - ALS FOLLOW UP DISCUSS TEST RESULTS UGI, HIDA, EGD [facility] [id number] 36 Per elder Ba for abdominal pain. Rx sent. [facility] 03-17-2023 36 Spoke to pt to shweta morton her that her US was normal, UGI was normal (no HH or reflux) and HIDA with EF 85% which is normal. Also informed her that Britney sent her a message via [employer] to see how she felt during HIDA but she never answered. I asked if she had any symptoms reproduced during HIDA? She said not really, just her stomach was a little bloated but she was fine afterwards. I informed her that the next step is EGD as she is already scheduled. Pt states understanding [facility] 36 Navneet, can you ple ase let this patient know that her US was normal, UGI was normal (no HH or reflux) and HIDA with EF 85% which is normal. I sent her a message via [employer] to see how she felt during HIDA but she never answered. Can you ask her if she had any symptoms reproduced during HIDA? Next step is EGD as she is already scheduled for. Thanks. [facility] US ABDOMEN COMPLETEon 2022 US ABDOMEN COMPLETE Patient Name: DEVYN ZIEGLER : 1980 Exam Date/Time: 03/17/2023 08:14 Procedure: US ABDOMEN COMPLETE Ordering Provider: MONTES HEATHER Reason For Exam: epigastric pain EXAM TYPE: Ultrasound abdomen complete. CLINICAL HISTORY: epigastric pain COMPARISON: None. TECHNIQUE: Grayscale sonographic images were obtained of the abdomen. Color Doppler was utilized. FINDINGS: Liver: The liver is normal in contour and echogenicity. A 9 mm anechoic cyst is seen in the right hepatic lobe. No intra or extrahepatic biliary ductal dilatation is identified. The common bile duct is appropriate in size for the patient's age and measures 3 mm in diameter. Gallbladder: The gallbladder is unremarkable with no gallbladder wall thickening, pericholecystic fluid, or gallstones. No sonographic Patino sign was elicited. Kidneys: Both kidneys are normal in contour, echogenicity, and size with no hydronephrosis or shadowing renal calculi. The right kidney measures 11.6 cm in length. The left kidney measures 12.2 cm in length. Accessory structures: The spleen is nonenlarged. The pancreas is normal. The proximal aorta and IVC are normal in caliber. IMPRESSION: No acute sonographic abnormality within the abdomen. Report Dictated on Electronically Signed By: Osmar Neal Electronically Signed Date/Time: 03/17/2023 10:07 AM EDT [facility] Gallbladder Views W dori cystokinin and W radionuclide Rosa 02-27-2023 No evidence of acute cholecystitis or common bile duct obstruction. Normal gallbladder ejection fraction following CCK administration. Report Dictated on Electronically Signed By: Nikolay Johns Electronically Signed Date/Time: 02/27/2023 11:01 AM EDT [facility] Patient Name: DEVYN ZIEGLER : 1980 Exam Date/Time: 02/27/2023 10:58 Procedure: NM HEPATOBILIARY SCAN WITH PHARM AGENT W/CCK Ordering Provider: MONTES HEATHER Reason For Exam: epigastric pain HEPATOBILIARY SCAN WITH CCK CLINICAL INDICATION: Epigastric pain Following the intravenous administration of 3.5 mCi Tc-99m Choletec a hepatobiliary study was performed. Images were then acquired over the abdomen in the anterior projection for approximately one hour. Subsequently, the patient was given 1.4 mcg of CCK. Dynamic images with ANGEL over the gallbladder was used to calculate the gallbladder ejection fraction. COMPARISON: None FINDINGS: Normal radiopharmaceutical uptake is demonstrated within the liver, with excretion into the biliary tree. Activity is demonstrated within the gallbladder within 20 minutes. Tracer also passes into the small bowel. Using ANGEL activity, the gallbladder ejection fraction was calculated at 85 percent following CCK administration (normal above 35%). [facility] Nikolay Johns MD - 02/27/2023 Patient Name: DEVYN CORONA : 1980 Exam Date/Time: 02/27/2023 10:58 Procedure: NM HEPATOBILIARY SCAN WITH PHARM AGENT W/CCK Ordering Provider: MONTES HEATHER Reason For Exam: epigastric pain HEPATOBILIARY SCAN WITH CCK CLINICAL INDICATION: Epigastric pain Following the intravenous administration of 3.5 mCi Tc-99m Choletec a hepatobiliary study was performed. Images were then acquired over the abdomen in the anterior projection for approximately one hour. Subsequently, the patient was given 1.4 mcg of CCK. Dynamic images with ANGEL over the gallbladder was used to calculate the gallbladder ejection fraction. COMPARISON: None FINDINGS: Normal radiopharmaceutical uptake is demonstrated within the liver, with excretion into the biliary tree. Activity is demonstrated within the gallbladder within 20 minutes. Tracer also passes into the small bowel. Using ANGEL activity, the gallbladder ejection fraction was calculated at 85 percent following CCK administration (normal above 35%). IMPRESSION: No evidence of acute cholecystitis or common bile duct obstruction. Normal gallbladder ejection fraction following CCK administration. Report Dictated on Electronically Signed By: Nikolay Johns Electronically Signed Date/Time: 02/27/2023 11:01 AM EDT [facility] Radiology Study observation (narrative) [facility] Gallbladder Views W dori cystokinin and W radionuclide IVOrdered By: Nikolay Johns on 02-27-2023 [facility] Work Phone: 36on 02-23-2023 36 Patient called back and states that date and time are fine. 03/27/2023 [facility] 11:40 with arrival at 10:[address] [facility] 36 Requested patient cindy ll back to let me know if she could make her EGD appt 03/27/23 11:40 [facility] Normal [facility] [facility] Office Visiton 02-19-2023 Follow-up visit [id number] Colby Corona 1980 F Date Provider Department Center 02/19/2023 [id number] [place] [facility] None Family History Problem Relation Age of Onset Bradycardia Mother Lung cancer Father Alcohol abuse Father Other Father Family Status - Relation Status Age at Mother Alive Father Level of Service:54297 MA OFFICE/OUTPATIENT NEW MODERATE MDM 45-59 MINUTES Reason for Visit and Comments: 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 provider found HPI: Devyn Corona is a 43 y.o. female who presents with epigastric pain, dysphagia and chronic constipation. Reports for the past couple years describes a cramp like sensation in epigastric region. Has had problems with constipation and felt that the cramp/spasm was due to the constipation. Underwent colonoscopy 2020 that was unremarkable. Has been taking MOM and miralax and still will go days without bowel movement. 3 days ago, while bending over, felt a pop with sharp pain in epigastric region with noticeable bulge. She states her was able to push it back in but since has a chronic pain. She reports one episode of reflux. Never had reflux until 3 days ago. Was to start omeprazole but was never sent to her pharmacy. She does have sensation of food getting stuck but no emesis. Has never had an upper endoscopy. Colonoscopy a few years ago was normal. No other imaging. Previous abdominal surgery laparoscopic hysterectomy (has both ovaries) and panniculectomy. She does not smoke. Social ETOH. No recreational drug use. Notes reviewed: - Dr. Garcia, 02/13/23 I personally reviewed the patient intake form with the patient. The ROS is negative except for what is listed in HPI. PMHx: Past Medical History: Diagnosis Date Abdominal pain Anemia Fatigue GERD (gastroesophageal reflux disease) Hypertension Liver cyst Uterine fibroid Viral illness PSHx: Past Surgical History: Procedure Laterality Date FEMINIZING AUGMENTATION MAMMOPLASTY 2011 HYSTERECTOMY 04/16/2021 [facility] XR ENDO COLONSCOPY W DILATATION KNEE SURGERY Bilateral ACL/MCL TEARS IN 1995,1997,1999,2017 PANNICULECTOMY (HISTORICAL) 2010 PFMHx: Family History Problem Relation Name Age of Onset Bradycardia Mother Lung cancer Father Alcohol abuse Father Other (SMOKER) Father ALL: No Known Allergies MEDS: Current Outpatient Medications Medication Sig Dispense Refill lisinopril-hydroCHLOROthiaz alexis 20-12.5 MG tablet Take 1 tablet by mouth daily. Multiple Vitamins-Minerals (Hair/Skin/Nails) tablet Take by mouth. Multiple Vitamins-Minerals (multivitamin with minerals) tablet Take 1 tablet by mouth daily. No current facility-administered medications for this visit. SOCIAL Hx: Social History Socioeconomic History Marital status: Spouse name: Not on file Number of children: Not on file Years of education: Not on file Highest education level: Not on file Occupational History Not on file Tobacco Use Smoking status: Never Smokeless tobacco: Never Substance and Sexual Activity Alcohol use: Yes Comment: OCCASIONALLY Drug use: Never Sexual activity: Yes Partners: Male Other Topics Concern Not on file Social History Narrative Not on file Social Determinants of Health Financial Resource Strain: Not on file Food Insecurity: Not on file Transportation Needs: Not on file Physical Activity: Not on file Stress: Not on file Social Connections: Not on file Intimate Partner Violence: Not on file Housing Stability: Not on file ROS: General: negative for - chills, fatigue, fever or malaise Gastrointestinal: negative for - change in bowel habits, hemoptysis, hematemesis, hematochezia, dysphagia, nausea, vomiting, diarrhea, constipation, weight loss Physical Examination: BP 124/78 (BP Location: Right arm, Patient Position: Sitting, BP Cuff Size: Adult) Pulse 67 Temp 37 ?C (98.6 ?F) (Temporal) Ht 5' 5 (1.651 m) Wt 157 lb (71.2 kg) BMI 26.13 kg/m? She stands Height: 5' 5 (165.1 cm) tall with a weight of Weight: 157 lb (71.2 kg) , resulting in a BMI of Body mass index is 26.13 kg/m?.. General: The patient is awake, alert, and oriented. Noticeably distressed Respiratory: Normal effort, no gross abnormal breath sounds Abdomen: Soft, non distended, decreased BS. TTP epigastric and LUQ; no rebound or guarding. Healed laparoscopic scars Hernia: No palpable hernia on exam. Extremities: Ambulatory without assistance, no edema Skin: Warm, dry, intact; no obvious lesions or discoloration Assessment/Plan Devyn was seen today for new patient. Diagnoses and all orders for this visit: Epigastric pain (Primary) - FL upper GI double contrast w KUB; Future - CT abdomen pelvis w contrast; Future - Creatinine, Serum; Future - Creatinine, Serum - FL upper GI double contrast w KUB; Future - US abdomen complete; Future - NM hepatobiliary scan with pharm agent w/cck; Future LUQ pain - CT abdomen pelvis w contrast; Future - Creatinine, Serum; Future - Creatinine, Serum Chronic constipation - CT abdomen pelvis w contrast; Future Esophageal dysphagia - FL upper GI double contrast w KUB; Future - FL upper GI double contrast w KUB; Future Devyn Corona is a 43 y.o. female who presents with epigas (more content not included)... Normal [facility] Absolute lymphocyte countOrd ered By: Dr. Garcia on 02-13-2023 Lymphocytes Auto (Unsp spec) [#/Vol] 2.08 10*3/uL 0.83-4.51 [facility] Basophil percentageOrdered B y: Dr. Garcia on 02-13-2023 Basophils/100 WBC (Bld) 0.8 % 0-1 [facility] Bilirubin [Mass/Vol] 0.30 mg/dL 0.20-1.00 [facility] Comment on above: For patients on eltr ombopag therapy, use of Dimension [place] TBIL is not recommended. Chloride [Moles/Vol] 104 mmol/L 98-107 [facility] Eosinophils/100 WBC (Bld) 1.3 % 0-5 [facility] Glucose [Mass/Vol] 90 mg/dL 74-106 [facility] Neutrophils (Bld) [#/Vol] 2.7 10*3/uL 2.0-7.7 [facility] Neutrophils/100 WBC (Bld) 50.2 % 47-70 [facility] Potassium [Moles/Vol] 3.7 mmol/L 3.5-5.1 [facility] Protein [Mass/Vol] 7.4 g/dL 6.4-8.2 [facility] Sodium [Moles/Vol] 133 mmol/L 136-145 [facility] WBC (Bld) [#/Vol] 5.3 10*3/uL 4.4-11.0 [facility] Blood erythrocytes count (nu mber/volume)Ordered By: Dr. Garcia on 02-13-2023 RBC (Bld) [#/Vol] 4.38 10*6/uL 4.2-5.4 [facility] Blood hemoglobin measurement (mass/volume)Ordered By: Dr. Garcia on 02-13-2023 Hemoglobin (Bld) [Mass/Vol] 12.8 g/dL 12.0-15.0 [facility] Blood lymphocytes/100 leukoc ytesOrdered By: Dr. Garcia on 02-13-2023 Lymphocytes/100 WBC (Bld) 39.5 % 19-41 [facility] Blood monocytes/100 leukocyt esOrdered By: Dr. Garcia on 02-13-2023 Monocytes/100 WBC (Bld) 8.0 % 0-10 [facility] Blood platelet mean volumeOr dered By: Dr. Garcia on 02-13-2023 Platelet mean volume (Bld) [Entitic vol] 10.7 fL 6.2-12.0 [facility] Determination of erythrocyte mean corpuscular volume (MCV)Ordered By: Dr. Garcia on 02-13-2023 MCV (RBC) [Entitic vol] 89.7 fL 81-99 [facility] Hematocrit Auto (Bld) [Volum e fraction]Ordered By: Dr. Garcia on 02-13-2023 Hematocrit (Bld) [Volume fraction] 39.3 % 37-47 [facility] Laboratory - Chemistry and C hemistry - challengeOrdered By: Dr. Garcia on 02-13-2023 ALP [Catalytic activity/Vol] 50 U/L 45-117 [facility] ALT [Catalytic activity/Vol] 26 U/L 13-56 [facility] CO2 [Moles/Vol] 25.0 mmol/L 21.0-32.0 [facility] Globulin (S) [Mass/Vol] 3.3 g/dL 2.2-4.2 [facility] Urea nitrogen/Creatinine [Mass ratio] 22.2 mg/mg 10-20 [facility] Laboratory - Hematology and Cell countsOrdered By: Dr. Garcia on 02-13-2023 Erythrocyte distribution width (RBC) [Entitic vol] 41.4 fL 35.1-43.9 [facility] Erythrocyte distribution width (RBC) [Ratio] 12.5 % 11.6-14.6 [facility] Immature granulocytes/100 WBC (Bld) 0.200 % 0.0-0.9 [facility] Comment on above: IG% - Immature Granu locytes (promyelocytes, myelocytes and metamyelocytes) > 1% indicates that a LEFT SHIFT is Present. MCH (RBC) [Entitic mass] 29.2 pg 27.0-32.0 [facility] Nucleated RBC/100 WBC (Bld) [Ratio] 0 % 0-5 [facility] MCHC Auto (RBC) [Mass/Vol]Or dered By: Dr. Garcia on 02-13-2023 MCHC (RBC) [Mass/Vol] 32.6 g/dL 32-36 [facility] No Panel InformationOrdered By: Dr. Garcia on 02-13-2023 Estimated GFR (MDRD) Amer 107 mL/min >60 [facility] Comment on above: GFR Calc Estimated GFR (MDRD) Non-Af Amer 88 mL/min >60 [facility] Comment on above: Non- GFR Calc Platelets bldOrdered By: Dr. Garcia on 02-13-2023 Platelets (Bld) [#/Vol] 240 10*3/uL 150-450 [facility] Serum or plasma albumin santa urement (mass/volume)Ordered By: Dr. Garcia on 02-13-2023 Albumin [Mass/Vol] 4.1 g/dL 3.2-5.0 [facility] Serum or plasma albumin/glob ulin mass ratioOrdered By: Dr. Garcia on 02-13-2023 Albumin/Globulin [Mass ratio] 1.2 {ratio} 0.9-2.4 [facility] Serum or plasma calcium santa urement (mass/volume)Ordered By: Dr. Garcia on 02-13-2023 Calcium [Mass/Vol] 9.0 mg/dL 8.5-10.1 [facility] Serum or plasma creatinine m easurement (mass/volume)Ordered By: Dr. Garcia on 02-13-2023 Creatinine [Mass/Vol] 0.77 mg/dL 0.55-1.02 [facility] Comment on above: The validity of the calculated GFR & GFRAA in patients over 70 years has not been determined. Clinical correlation is essential. Serum or plasma urea nitroge n measurement (mass/volume)Ordered By: Dr. Garcia on 02-13-2023 Urea nitrogen [Mass/Vol] 17 mg/dL 7-18 [facility] Thin prep Papanicolaou smear with manual screeningOrdered By: Dr. Garcia on 02-13-2023 Thin prep Papanicolaou smear with manual screening 22 U/L 15-37 [facility] Thin prep Papanicolaou smear with manual screening 4 5-15 [facility] Absolute lymphocyte counton 08-28-2022 Lymphocytes Auto (Unsp spec) [#/Vol] 2.38 10*3/uL 0.83-4.51 [facility] Work Phone: Basophil percentageon 2021 Basophil percentage 0-5 SEEN /hpf 0-5 [facility] Work Phone: Basophils/100 WBC (Bld) 0.4 % 0-1 [facility] Work Phone: Bilirubin [Mass/Vol] 0.80 mg/dL 0.20-1.00 [facility] Work Phone: Comment on above: For patients on eltr ombopag therapy, use of Dimension [place] TBIL is not recommended. Chloride [Moles/Vol] 98 mmol/L 98-107 [facility] Work Phone: Cholesterol [Mass/Vol] 216 mg/dL <200 [facility] Work Phone: Comment on above: <200 mg/dL Desirable 200-240 mg/dL Borderline >240 mg/dL High Risk Eosinophils/100 WBC (Bld) 0.9 % 0-5 [facility] Work Phone: Glucose [Mass/Vol] 86 mg/dL 74-106 [facility] Work Phone: Neutrophils (Bld) [#/Vol] 4.0 10*3/uL 2.0-7.7 [facility] Work Phone: Neutrophils/100 WBC (Bld) 58.0 % 47-70 [facility] Work Phone: Potassium [Moles/Vol] 3.5 mmol/L 3.5-5.1 [facility] Work Phone: [phone] Protein [Mass/Vol] 8.0 g/dL 6.4-8.2 [facility] Work Phone: Sodium [Moles/Vol] 135 mmol/L 136-145 [facility] Work Phone: Triglyceride [Mass/Vol] 61 mg/dL <199 [facility] Work Phone: Comment on above: The drugs N-Acetylcy steine and Metamizole may falsely depress this assay.Serum Triglycerides Reference Interval Normal <150 mg/dL Borderline high 150 - 199 mg/dL High 200 - 499 mg/dL Very High > or = 500 mg/dL WBC (Bld) [#/Vol] 7.0 10*3/uL 4.4-11.0 [facility] Work Phone: Bilirubin Test strip Ql (U)o n 08-28-2022 Bilirubin Ql (U) Negative Negative [facility] Work Phone: Blood erythrocytes count (nu mber/volume)on 08-28-2022 RBC (Bld) [#/Vol] 4.62 10*6/uL 4.2-5.4 [facility] Work Phone: Blood hemoglobin measurement (mass/volume)on 08-28-2022 Hemoglobin (Bld) [Mass/Vol] 14.1 g/dL 12.0-15.0 [facility] Work Phone: Blood lymphocytes/100 leukoc yteson 08-28-2022 Lymphocytes/100 WBC (Bld) 34.1 % 19-41 [facility] Work Phone: Blood monocytes/100 leukocyt eson 08-28-2022 Monocytes/100 WBC (Bld) 6.5 % 0-10 [facility] Work Phone: Blood platelet mean volumeon 08-28-2022 Platelet mean volume (Bld) [Entitic vol] 10.4 fL 6.2-12.0 [facility] Work Phone: Determination of erythrocyte mean corpuscular volume (MCV)on 08-28-2022 MCV (RBC) [Entitic vol] 87.4 fL 81-99 [facility] Work Phone: Hematocrit Auto (Bld) [Volum e fraction]on 08-28-2022 Hematocrit (Bld) [Volume fraction] 40.4 % 37-47 [facility] Work Phone: Iron measurement (mass/mass) on 08-28-2022 Iron (Unsp spec) [Mass/Mass] 81 ug/dL 50-170 [facility] Work Phone: Ketones Test strip Ql (U)on 08-28-2022 Ketones Ql (U) Negative Negative [facility] Work Phone: Laboratory - Chemistry and C hemistry - challengeon 08-28-2022 ALP [Catalytic activity/Vol] 41 U/L 45-117 [facility] Work Phone: ALT [Catalytic activity/Vol] 30 U/L 13-56 [facility] Work Phone: CO2 [Moles/Vol] 28.0 mmol/L 21.0-32.0 [facility] Work Phone: Cobalamin (Vitamin B12) [Mass/Vol] 914 pg/mL 211-911 [facility] Work Phone: Globulin (S) [Mass/Vol] 3.6 g/dL 2.2-4.2 [facility] Work Phone: Urea nitrogen/Creatinine [Mass ratio] 21.6 mg/mg 10-20 [facility] Work Phone: Laboratory - Hematology and Cell countson 08-28-2022 Erythrocyte distribution width (RBC) [Entitic vol] 40.1 fL 35.1-43.9 [facility] Work Phone: Erythrocyte distribution width (RBC) [Ratio] 12.6 % 11.6-14.6 [facility] Work Phone: Immature granulocytes/100 WBC (Bld) 0.100 % 0.0-0.9 [facility] Work Phone: Comment on above: IG% - Immature Granu locytes (promyelocytes, myelocytes and metamyelocytes) > 1% indicates that a LEFT SHIFT is Present. MCH (RBC) [Entitic mass] 30.5 pg 27.0-32.0 [facility] Work Phone: Nucleated RBC/100 WBC (Bld) [Ratio] 0 % 0-5 [facility] Work Phone: MCHC Auto (RBC) [Mass/Vol]on 08-28-2022 MCHC (RBC) [Mass/Vol] 34.9 g/dL 32-36 [facility] Work Phone: Mucus LM Ql (Urine sed)on Mucus Ql (Urine sed) 0 SEEN /hpf [facility] Work Phone: Nitrite Test strip Ql (U)on 08-28-2022 Nitrite Ql (U) Negative Negative [facility] Work Phone: No Panel Informationon 08-28 Estimated GFR (MDRD) Amer 86 mL/min >60 [facility] Work Phone: Comment on above: GFR Calc Estimated GFR (MDRD) Non-Af Amer 71 mL/min >60 [facility] Work Phone: Comment on above: Non- GFR Calc Thyroid Stimulating Hormone (TSH) 2.55 uIU/mL 0.358-3.74 [facility] Work Phone: Total Iron Binding Capacity 386 ug/dL 250-450 [facility] Work Phone: Platelets bldon 08-28-2022 Platelets (Bld) [#/Vol] 285 10*3/uL 150-450 [facility] Work Phone: Protein Test strip Ql (U)on 08-28-2022 Protein Ql (U) Negative Negative [facility] Work Phone: Serum or plasma albumin santa urement (mass/volume)on 08-28-2022 Albumin [Mass/Vol] 4.4 g/dL 3.2-5.0 [facility] Work Phone: Serum or plasma albumin/glob ulin mass ratioon 08-28-2022 Albumin/Globulin [Mass ratio] 1.2 {ratio} 0.9-2.4 [facility] Work Phone: Serum or plasma calcium santa urement (mass/volume)on 08-28-2022 Calcium [Mass/Vol] 10.1 mg/dL 8.5-10.1 [facility] Work Phone: Serum or plasma cholesterol in HDL measurement (mass/volume)on 08-28-2022 Cholesterol in HDL [Mass/Vol] 104 mg/dL >40 [facility] Work Phone: Comment on above: The drugs N-Acetylcy steine and Metamizole may falsely depress this assay. Reference Range HDL <40 mg/dL Low HDL Cholesterol HDL >or= 60 mg/dL High HDL Cholesterol Serum or plasma cholesterol in VLDL measurement (mass/volume)on 08-28-2022 Cholesterol in VLDL [Mass/Vol] 12 mg/dL 5-40 [facility] Work Phone: Serum or plasma creatinine m easurement (mass/volume)on 08-28-2022 Creatinine [Mass/Vol] 0.93 mg/dL 0.55-1.02 [facility] Work Phone: Comment on above: The validity of the calculated GFR & GFRAA in patients over 70 years has not been determined. Clinical correlation is essential. Serum or plasma ferritin gavi surement (mass/volume)on 08-28-2022 Ferritin [Mass/Vol] 23 ng/mL 8-252 [facility] Work Phone: Serum or plasma folate measu rement (mass/volume)on 08-28-2022 Folate [Mass/Vol] 23.20 ng/mL 3.1-55.4 [facility] Work Phone: Serum or plasma low density lipoprotein (LDL) cholesterol measurement (mass/volume)on 08-28-2022 Cholesterol in LDL [Mass/Vol] 100 mg/dL 0-130 [facility] Work Phone: Serum or plasma urea nitroge n measurement (mass/volume)on 08-28-2022 Urea nitrogen [Mass/Vol] 20 mg/dL 7-18 [facility] Work Phone: Squamous epithelial cells de tection in urine sediment by light microscopyon 08-28-2022 Epithelial cells.squamous LM Ql (Urine sed) 0-5 SEEN /hpf 5-10 [facility] Work Phone: Thin prep Papanicolaou smear with manual screeningon 08-28-2022 Thin prep Papanicolaou smear with manual screening 24 U/L 15-37 [facility] Work Phone: Thin prep Papanicolaou smear with manual screening 9 5-15 [facility] Work Phone: Urine blood detectionon RBC Ql (U) 10 /ul Negative [facility] Work Phone: RBC Ql (U) 0 SEEN /hpf 0-5 [facility] Work Phone: Urine clarityon 08-28-2022 Clarity (U) Clear Clear [facility] Work Phone: Urine color determinationon 08-28-2022 Color (U) Yellow Yellow [facility] Work Phone: Urine glucose detectionon Glucose Ql (U) Normal mg/dl Normal [facility] Work Phone: Urine leukocyte esterase det ection by dipstickon 08-28-2022 Leukocyte esterase Test strip Ql (U) Negative Negative [facility] Work Phone: Urine pHon 08-28-2022 pH (U) 6.0 [pH] 5.0 - 8.0 [facility] Work Phone: Urine sediment bacteria coun t by microscopy (number/high power field)on 08-28-2022 Bacteria LM.HPF (Urine sed) [#/Area] 0 /[HPF] None Seen [facility] Work Phone: Urine specific gravity measu rementon 08-28-2022 Specific gravity (U) [Rel density] 1.010 1.002-1.03 0 [facility] Work Phone: Urobilinogen Auto test strip Ql (U)on 08-28-2022 Urobilinogen Ql (U) Normal mg/dl Normal [facility] Work Phone: Basophil percentageon 2021 Basophil percentage < 0.9 mg/dL 0.55-1.02 [facility] Work Phone: No Panel Informationon 08-21 Bedside Estimated GFR (eGFR) > 60.0000 mL/min >60 [facility] Work Phone: LG Jt Injection/Arthrocentes is: R kneeon 12-31-2021 Tammy Silva CNP 12/31/2021 10:15 AM LG Jt Injection/Arthrocentesis: R knee Performed by: Tammy Silva CNP Authorized by: Tammy Silva CNP CPT 73425 - Large Joint Arthrocentesis: Consent given by: Patient Time out: Immediately prior to the procedure a time out was called Physician or proceduralist has discussed critical or nonroutine steps, procedure duration and anticipated blood loss: Yes Supporting Documentation: Indications: Pain, joint swelling and diagnostic evaluation Procedure Details: Location: Knee Site: R knee Prep: patient was prepped and draped in usual sterile fashion Needle size: 22 G Approach: Anterolateral Medications: 40 mg triamcinolone acetonide 40 mg/mL Anesthetic used: Lidocaine 1% Anesthetic amount (mL): 2 Patient tolerance: Patient tolerated the procedure well with no immediate complications [facility] [id number] 10-15-2021 [id number] Patient: DEVYN [place] [address] Admit Date: 09/12/21 /Age: 04 1980 Family Physician: CARDIOVASCULAR NONINVASIVE TESTING Attending Physician: Clemente Landis MD Med Rec #: [id number] 30-DAY EVENT RECORDER DATE: September 12, 2021 PRIMARY CARE PHYSICIAN: INDICATION: Bradycardia. CONCLUSION: 1. Good quality recording. 2. Baseline rhythm sinus with heart rate ranging from sinus bradycardia 31 per minute to sinus tachycardia 150 per minute. The lowest heart rate was recordet 11:48 p.m., likely during sleep. 3. Rare PACs noted. 4. One burst of ventricular bigeminy noted. This episode lasted for 3 PVCs. 5. No other malignant supraventricular or ventricular arrhythmia noted. 6. No advanced conduction system abnormalities noted. 7. The patient complained of lightheadedness and dizziness with PAC. On one occasion, she complained of chest pain, associated rhythm was sinus at 65 per minute without any ST-T wave changes. MIS /JOSÉ LUIS Authenticated on: 10/29/21 1330 [id number] Job ID# [id number] CC: Clemente Landis MD Normal [facility] Basic Metabolic panelon 08-26 Anion gap [Moles/Vol] 8 mmol/L Low - [facility] Comment on above: Performed By: #### B MP #### [facility] (DEFAULT) [address] [place] [address], [place] [address] Calcium [Mass/Vol] 9.3 mg/dL Normal 8.0-10.2 [facility] Comment on above: Performed By: #### B MP #### [facility] (DEFAULT) [address], [place] [address] Chloride [Moles/Vol] 103 mmol/L Normal 98-108 [facility] Comment on above: Performed By: #### B MP #### [facility] (DEFAULT) [address] [place], [place] [address], [place] [address] CO2 [Moles/Vol] 29.0 mmol/L Normal 21.0-32.0 [facility] Comment on above: Performed By: #### B MP #### [facility] (DEFAULT) [address] [place] [address] Creatinine [Mass/Vol] 0.8 mg/dL Normal 0.4-1.[address] [facility] Comment on above: Performed By: #### B MP #### [facility] (DEFAULT) [address] [place] [address] GFR/1.73 sq M.predicted MDRD (S/P/Bld) [Vol rate/Area] 80 mL/min/{1.73_m2} Normal 60-1000 [facility] Comment on above: Result Comment: The eGFR should be used for monitoring renal function only and not for medication dosing. Performed By: #### B MP #### [facility] (DEFAULT) [address] [place] [address] Glucose [Mass/Vol] 95 mg/dL Normal 65-99 [facility] Comment on above: Performed By: #### B MP #### [facility] (DEFAULT) [address] [place] [address] Potassium [Moles/Vol] 3.9 mmol/L Normal 3.5-5.[address] [facility] Comment on above: Performed By: #### B MP #### [facility] (DEFAULT) [address] [place] [address] Sodium [Moles/Vol] 136 mmol/L Normal 135-145 [facility] Comment on above: Performed By: #### B MP #### [facility] (DEFAULT) [address], [place] [address] Urea nitrogen [Mass/Vol] 14 mg/dL Normal - [facility] Comment on above: Performed By: #### B MP #### [facility] (DEFAULT) [address] [address], [place] [address] Basic metabolic 2000 panelon 09-12-2021 Anion gap [Moles/Vol] 8 mmol/L Low 10 - 2 0 mmol/L [facility] Calcium [Mass/Vol] 9.3 mg/dL 8.0 - 10. 2 mg/dL [facility] Chloride [Moles/Vol] 103 mmol/L 98 - 10 8 mmol/L [facility] Creatinine [Mass/Vol] 0.8 mg/dL 0.4 - 1.1 mg/dL [facility] GFR/1.73 sq M.predicted among non-blacks MDRD (S/P/Bld) [Vol rate/Area] 80 mL/min/{1.73_m2} [facility] Comment on above: The eGFR should be u sed for monitoring renal function only and not for medication dosing. Glucose [Mass/Vol] 95 mg/dL 65 - 99 mg/dL [facility] HCO3 (Bld) [Moles/Vol] 29.0 mmol/L 21.0 - 32.0 mmol/L [facility] Interpretation and review of laboratory results Abnormal [facility] Potassium [Moles/Vol] 3.9 mmol/L 3.5 - 5.1 mmol/L [facility] Sodium [Moles/Vol] 136 mmol/L 135 - 145 mmol/L [facility] Urea nitrogen [Mass/Vol] 14 mg/dL 8 - 25 mg/dL [facility] CT HEAD WITHOUT CONTRASTon 0 07-21-2021 CT HEAD WITHOUT CONTRAST EXAMINATION: CT HEAD WITHOUT CONTRAST, 07/20/2021 11:27 PM EDT HISTORY: Trauma COMPARISON: None. TECHNIQUE: CT scan of the head was performed without IV contrast. CT dose reduction technique was used, including Automated Exposure Control. Sequential axial computed tomographic images were obtained from the foramen magnum through the cerebral convexities, without contrast administration and filmed in bone, soft tissue, and subdural window settings. No prior CT studies of the head are available for review. The ventricles and extraventricular CSF spaces are within normal limits in size for patient's age. There are no focal abnormal areas of increased or decreased density, mass-effect, or hemorrhage. No midline shift or herniation is noted. The fourth ventricle is symmetrically positioned in the midline. No extra-axial hemorrhage is noted. There is no gross evidence of intracranial hyperdense intravascular thrombus. No displaced or depressed fractures are noted. The visualized sinuses are clear, however the paranasal sinuses are not entirely visible in this routine CT of the head. The mastoids and middle ears are clear. IMPRESSION: 1. Brain within normal limits. Normal [facility] [place] 07-09-2021 ALT [Catalytic activity/Vol] 20 U/L Normal <35 [facility] Comment on above: Result Comment: Test ing performed at [place] [address] Performed By: #### A LT, HEMOG, TSH2, BMPF #### [place] [address] BMP FASTINGon 07-09-2021 Anion gap [Moles/Vol] 10 mmol/L Normal 8-16 [facility] Comment on above: Performed By: #### A LT, HEMOG, TSH2, BMPF #### [place] [address] Calcium [Mass/Vol] 9.7 mg/dL Normal 8.4-10.2 [facility] Comment on above: Performed By: #### A LT, HEMOG, TSH2, BMPF #### [place] [address] Chloride [Moles/Vol] 102 mmol/L Normal 98-107 [facility] Comment on above: Result Comment: Plea se note: Triglyceride levels of 600mg/dL or higher may positively bias chloride results by approximately 2.1 mmol Performed By: #### A LT, HEMOG, TSH2, BMPF #### [place] [address] CO2 [Moles/Vol] 26 mmol/L Normal 22-30 [facility] Comment on above: Performed By: #### A LT, HEMOG, TSH2, BMPF #### [place] [address] Creatinine [Mass/Vol] 0.70 mg/dL Normal 0.7-1.2 [facility] Comment on above: Performed By: #### A LT, HEMOG, TSH2, BMPF #### [place] [address] EST. GFR, >60 Normal [facility] Comment on above: Performed By: #### A LT, HEMOG, TSH2, BMPF #### [place] [address] EST. GFR,Non >60 Normal [facility] Comment on above: Performed By: #### A LT, HEMOG, TSH2, BMPF #### [place] [address] GFR Information Average GFR for 30-3 9 years old = 109. Normal [facility] Comment on above: Result Comment: [employer] jodie Kidney disease, GFR = <60. Kidney failure, GFR = <15. The GFR estimate is not adjusted for extreme body surface area or acute process, nor has it been validated for women or ethnic groups other than and . Testing performed at [place] [address] Performed By: #### A LT, HEMOG, TSH2, BMPF #### [place] [address] Glucose [Mass/Vol] 87 mg/dL Normal 70-100 [facility] Comment on above: Result Comment: NORMAL <100 mg/dL PREDIABETES 101-126 mg/dL DIABETES 126 mg/dL or higher Performed By: #### A LT, HEMOG, TSH2, BMPF #### [place] [address] Potassium [Moles/Vol] 4.3 mmol/L Normal 3.5-5.1 [facility] Comment on above: Performed By: #### A LT, HEMOG, TSH2, BMPF #### Testing [place] [address] Sodium [Moles/Vol] 138 mmol/L Normal 137-145 [facility] Comment on above: Performed By: #### A LT, HEMOG, TSH2, BMPF #### [place] [address] Urea nitrogen [Mass/Vol] 16 mg/dL Normal 7-20 [facility] Comment on above: Performed By: #### A LT, HEMOG, TSH2, BMPF #### [place] [address] CBC(NO DIFF)on 07-09-2021 Erythrocyte distribution width (RBC) [Ratio] 12.5 % Normal 11.5-14.5 [facility] Comment on above: Performed By: #### A LT, HEMOG, TSH2, BMPF #### [place] [address] Hematocrit (Bld) [Volume fraction] 40.8 % Normal 36.0-48.0 [facility] Comment on above: Performed By: #### A LT, HEMOG, TSH2, BMPF #### [place] [address] Hemoglobin (Bld) [Mass/Vol] 13.6 g/dL Normal 12.0-16.0 [facility] Comment on above: Performed By: #### A LT, HEMOG, TSH2, BMPF #### [place] [address] MCH (RBC) [Entitic mass] 29.6 pg Normal 26.0-35.0 [facility] Comment on above: Performed By: #### A LT, HEMOG, TSH2, BMPF #### [place] [address] MCHC (RBC) [Mass/Vol] 33.4 g/dL Normal 27.0-37.0 [facility] Comment on above: Performed By: #### A LT, HEMOG, TSH2, BMPF #### [place] [address] MCV (RBC) [Entitic vol] 88.5 fL Normal 80.0-100.0 [facility] Comment on above: Performed By: #### A LT, HEMOG, TSH2, BMPF #### [place] [address] Platelet mean volume (Bld) [Entitic vol] 9.3 fL Normal 7.4-11.0 [facility] Comment on above: Result Comment: Test ing performed at [place] [address] Performed By: #### A LT, HEMOG, TSH2, BMPF #### [place] [address] Platelets (Bld) [#/Vol] 213 10*3/uL Normal 130.0-400. 0 [facility] Comment on above: Performed By: #### A LT, HEMOG, TSH2, BMPF #### [place] [address] RBC (Bld) [#/Vol] 4.61 10*6/uL Normal 4.0-5.4 [facility] Comment on above: Performed By: #### A LT, HEMOG, TSH2, BMPF #### [place] [address] WBC (Bld) [#/Vol] 6.7 10*3/uL Normal 3.6-11.0 [facility] Comment on above: Performed By: #### A LT, HEMOG, TSH2, BMPF #### [place] [address] TSHon 07-09-2021 TSH 1.920 uIU/ML Normal 0.46-4.68 [facility] Comment on above: Result Comment: Test ing performed at [place] [address] Performed By: #### A CBC #### [place] [address] CBCon 04-16-2021 ABSOLUTE BAS 0.0 10*3/uL Normal 0.0-0.2 [facility] Comment on above: Result Comment: Test ing performed at [place] [address] Performed By: #### A CBC #### [place] [address] ABSOLUTE EOS 0.00 10*3/uL Normal 0.0-0.7 [facility] Comment on above: Performed By: #### A CBC #### [place] [address] ABSOLUTE NEUTROPHIL COUNT 9.2 10*3/uL High 1.4-6.5 [facility] Comment on above: Performed By: #### A CBC #### [place] [address] Basophils/100 WBC (Bld) 0.1 % Normal 0.0-2.0 [facility] Comment on above: Performed By: #### A CBC #### [place] [address] DTYPE AUTO DIFF Normal [facility] Comment on above: Performed By: #### A CBC #### [place] [address] Eosinophils/100 WBC (Bld) 0.0 % Normal 0.0-11.0 [facility] Comment on above: Performed By: #### A CBC #### [place] [address] Lymphocytes (Bld) [#/Vol] 0.40 10*3/uL Low 1.2-3.4 [facility] Comment on above: Performed By: #### A CBC #### [place] [address] Lymphocytes/100 WBC (Bld) 4.5 % Low 20.0-55.0 [facility] Comment on above: Performed By: #### A CBC #### [place] [address] Monocytes (Bld) [#/Vol] 0.1 10*3/uL Normal 0.0-0.7 [facility] Comment on above: Performed By: #### A CBC #### Testing performed at [address] [address] Monocytes/100 WBC (Bld) 0.9 % Normal 0.0-10.0 [facility] Comment on above: Performed By: #### A CBC #### Testing performed at [address] [address] Neutrophils/100 WBC (Bld) 94.5 % High 37.0-75.0 [facility] Comment on above: Performed By: #### A CBC #### Testing performed at [address] [address] Erythrocyte distribution width (RBC) [Ratio] 12.8 % Normal 11.5-14.5 [facility] Comment on above: Performed By: #### A CBC #### Testing performed at [address] [address] Hematocrit (Bld) [Volume fraction] 37.0 % Normal 36.0-48.0 [facility] Comment on above: Performed By: #### A CBC #### Testing performed at [address] [address] Hemoglobin (Bld) [Mass/Vol] 13.3 g/dL Normal 12.0-16.0 [facility] Comment on above: Performed By: #### A CBC #### Testing performed at [address] [address] MCH (RBC) [Entitic mass] 31.0 pg Normal 26.0-35.0 [facility] Comment on above: Performed By: #### A CBC #### Testing performed at [address] [address] MCHC (RBC) [Mass/Vol] 35.9 g/dL Normal 27.0-37.0 [facility] Comment on above: Performed By: #### A CBC #### Testing performed at [address] [address] MCV (RBC) [Entitic vol] 86.4 fL Normal 80.0-100.0 [facility] Comment on above: Performed By: #### A CBC #### [place] [address] Platelet mean volume (Bld) [Entitic vol] 8.3 fL Normal 7.4-11.0 [facility] Comment on above: Performed By: #### A CBC #### [place] [address] Platelets (Bld) [#/Vol] 204 10*3/uL Normal 130.0-400. 0 [facility] Comment on above: Performed By: #### A CBC #### [place] [address] RBC (Bld) [#/Vol] 4.28 10*6/uL Normal 4.0-5.4 [facility] Comment on above: Performed By: #### A CBC #### [place] [address] WBC (Bld) [#/Vol] 9.7 10*3/uL Normal 3.6-11.0 [facility] Comment on above: Performed By: #### A CBC #### [place] [address] REPEAT ABO/RHon 04-16-2021 REPEAT ABO/RH ABO/RH(D) O POSITIVE Testing performed at [address] Comment on above: Performed By: #### R ABRH #### [place] [address] NOVEL CORONAVIRUSon 04-15-20 21 NARRATIVE This test was perfor med using isothermal DARLENE and has been approved as Emergency Use Authorization (EUA) for the qualitative detection [id number] nucleic acid. [facility] Comment on above: Result Comment: Test ing performed at [place] [address] Performed By: #### C OVID #### [place] [address] SARS-CoV-2 (COVID-19) RNA DARLENE+probe Ql (Unsp spec) Not detected Normal NOT DETECTED [facility] Comment on above: Result Comment: Nega tive results do not preclude SARS-CoV-2 infection and should not be used as the sole basis for treatment or other patient management decisions. Optimum specimen types and timing for peak viral levels during infections caused by SARS-CoV-2 has not been determined. The possibility of a false negative result should especially be considered if the patient's recent exposures or clinical presentation suggest that SARS-CoV-2 infection is probable, and diagnostic tests for other causes of illness (e.g., other respiratory illness) are negative. Collection of a new specimen and re-testing may be necessary if the patient is critically ill or clinically deteriorating. Performed By: #### C OVID #### [place] [address] CBCon 03-18-2021 ABSOLUTE BAS 0.0 10*3/uL Normal 0.0-0.2 [facility] Comment on above: Result Comment: Test ing performed at [place] [address] Performed By: #### A CBC #### [place] [address] ABSOLUTE EOS 0.10 10*3/uL Normal 0.0-0.7 [facility] Comment on above: Performed By: #### A CBC #### [place] [address] ABSOLUTE NEUTROPHIL COUNT 4.8 10*3/uL Normal 1.4-6.5 [facility] Comment on above: Performed By: #### A CBC #### [place] [address] Basophils/100 WBC (Bld) 0.5 % Normal 0.0-2.0 [facility] Comment on above: Performed By: #### A CBC #### [place] [address] DTYPE AUTO DIFF Normal [facility] Comment on above: Performed By: #### A CBC #### Testing performed at [address] [address] Eosinophils/100 WBC (Bld) 0.9 % Normal 0.0-11.0 [facility] Comment on above: Performed By: #### A CBC #### Testing performed at [address] [address] Lymphocytes (Bld) [#/Vol] 1.50 10*3/uL Normal 1.2-3.4 [facility] Comment on above: Performed By: #### A CBC #### Testing performed at [address] [address] Lymphocytes/100 WBC (Bld) 22.3 % Normal 20.0-55.0 [facility] Comment on above: Performed By: #### A CBC #### Testing performed at [address] [address] Monocytes (Bld) [#/Vol] 0.4 10*3/uL Normal 0.0-0.7 [facility] Comment on above: Performed By: #### A CBC #### Testing performed at [address] [address] Monocytes/100 WBC (Bld) 5.6 % Normal 0.0-10.0 [facility] Comment on above: Performed By: #### A CBC #### Testing performed at [address] [address] Neutrophils/100 WBC (Bld) 70.7 % Normal 37.0-75.0 [facility] Comment on above: Performed By: #### A CBC #### Testing performed at [address] [address] Erythrocyte distribution width (RBC) [Ratio] 13.3 % Normal 11.5-14.5 [facility] Comment on above: Performed By: #### A CBC #### Testing performed at [address] [address] Hematocrit (Bld) [Volume fraction] 37.6 % Normal 36.0-48.0 [facility] Comment on above: Performed By: #### A CBC #### Testing performed at [address] [address] Hemoglobin (Bld) [Mass/Vol] 13.1 g/dL Normal 12.0-16.0 [facility] Comment on above: Performed By: #### A CBC #### Testing performed at [address] [address] MCH (RBC) [Entitic mass] 30.9 pg Normal 26.0-35.0 [facility] Comment on above: Performed By: #### A CBC #### Testing performed at [address] [address] MCHC (RBC) [Mass/Vol] 35.0 g/dL Normal 27.0-37.0 [facility] Comment on above: Performed By: #### A CBC #### Testing performed at [address] [address] MCV (RBC) [Entitic vol] 88.4 fL Normal 80.0-100.0 [facility] Comment on above: Performed By: #### A CBC #### Testing performed at [address] [address] Platelet mean volume (Bld) [Entitic vol] 8.1 fL Normal 7.4-11.0 [facility] Comment on above: Performed By: #### A CBC #### Testing performed at [address] [address] Platelets (Bld) [#/Vol] 210 10*3/uL Normal 130.0-400. 0 [facility] Comment on above: Performed By: #### A CBC #### Testing performed at [address] [address] RBC (Bld) [#/Vol] 4.25 10*6/uL Normal 4.0-5.4 [facility] Comment on above: Performed By: #### A CBC #### Testing performed at [address] [address] WBC (Bld) [#/Vol] 6.7 10*3/uL Normal 3.6-11.0 [facility] Comment on above: Performed By: #### A CBC #### Testing performed at [facility] [address] [place] [address] TYPE AND SCREEN CROSSMATCH C ONVERTIBLEon 03-18-2021 TYPE AND SCREEN CROSSMATCH CONVERTIBLE WORKUP EXPIRES 04/19/2021,2359 ABO/RH(D) O POSITIVE ANTIBODY SCREEN NEGATIVE ARM BAND NUMBER [id number] Testing performed at [place] [id number] Normal [facility] Comment on above: Performed By: #### A CBC #### Testing performed at [facility] [address] [place] [address] COLONOSCOPYon 01-01-2021 [facility] Gastroenterology Patient Name: Devyn Corona Procedure Date: 01/01/2021 10:35 AM Date of : 1980 Admit Type: Outpatient Age: 40 Room: Procedure Room #2 Gender: Female Note Status: Finalized Attending MD: Wilder Hale MD Instrument Name: [id number] - GIF [id number] Procedure: Colonoscopy Indications: Rectal bleeding, Chronic idiopathic constipation Providers: Wilder Hale MD Patient Profile: This is a 40 year old female. Body Mass Index: 26. Laboratory tests results include no abnormalities. Previously obtained CT showed no abnormalities. Referring MD: Osmar Garcia MD Complications: No immediate complications. Medicines: Monitored Anesthesia Care, See the Anesthesia note for documentation of the administered medications Procedure: After I obtained informed consent, the scope was passed under direct vision. Throughout the procedure, the patient's blood pressure, pulse, and oxygen saturations were monitored continuously. CO2 was used. The Colonoscope was introduced through the anus and advanced to the cecum, identified by appendiceal orifice and ileocecal valve. The Endoscope was introduced through the and advanced to. The colonoscopy was performed without difficulty. The patient tolerated the procedure well. The quality of the bowel preparation was good. The ileocecal valve, appendiceal orifice, and rectum were photographed. The entire colon was examined. Findings: The colon (entire examined portion) appeared normal. Internal hemorrhoids were found during retroflexion. The hemorrhoids were small and Grade I (internal hemorrhoids that do not prolapse). One band was successfully placed. There is no endoscopic evidence of diverticula, polyps, stricture, ulcerations, colitis, pseudomembranous changes, angiodysplasia, angioectasia, fissures, fistulas or tumor in the entire colon. Impression: - The entire examined colon is normal. - Internal hemorrhoids. Banded. - No specimens collected. Recommendation: - High fiber diet for the rest of the patient's life. - Augmented water consumption diet. - [place] 5/325 every 4 hours, as needed, for pain .# 12 pills prescribed. - TRULANCE 3 MG DAILY FOR CONSTIPATION. Procedure Code(s): --- Professional --- 16264, Colonoscopy, flexible; with band ligation(s) (eg, hemorrhoids) Diagnosis Code(s): --- Professional --- K64.0, First degree hemorrhoids K62.5, Hemorrhage of anus and rectum K59.04, Chronic idiopathic constipation CPT copyright 2020 [employer] [place] [employer]. All rights reserved. The codes documented in this report are preliminary and upon die forger review may be revised to meet current compliance requirements. MD Wilder Aguirre MD 01/01/2021 11:07:18 AM This report has been signed electronically. Number of Addenda: 0 Note Initiated On: 01/01/2021 10:35 AM [facility] UPPER ENDOSCOPYon 01-01-2021 [facility] Gastroenterology Patient Name: Devyn Corona Procedure Date: 01/01/2021 10:12 AM Date of : 1980 Admit Type: Outpatient Age: 40 Room: Procedure Room #2 Gender: Female Note Status: Finalized Attending MD: Wilder Hale MD Instrument Name: [id number] - GIF H190 Procedure: Upper GI endoscopy Indications: Heartburn, Gastro-esophageal reflux disease, Exclusion of Foster's esophagus Providers: Wilder Hale MD Patient Profile: This is a 40 year old female. Body Mass Index: 26. Laboratory tests results include no abnormalities. Previously obtained CT showed no abnormalities. Referring MD: Osmar Garcia MD Complications: No immediate complications. Medicines: Monitored Anesthesia Care, See the Anesthesia note for documentation of the administered medications Procedure: After obtaining informed consent, the endoscope was passed under direct vision. Throughout the procedure, the patient's blood pressure, pulse, and oxygen saturations were monitored continuously. CO2 was used. The Endoscope was introduced through the mouth, and advanced to the third part of duodenum. The upper GI endoscopy was accomplished without difficulty. The patient tolerated the procedure well. Findings: Non-severe esophagitis with no bleeding was found in the lower third of the esophagus. The esophagus and gastroesophageal junction were examined with white light and narrow band imaging (NBI) from a forward view and retroflexed position. There were esophageal mucosal changes suspicious for short-segment Foster's esophagus. These changes involved the mucosa extending to the Z-line. One tongue of salmon-colored mucosa was present from 39 to 41 cm. The maximum longitudinal extent of these esophageal mucosal changes was 2 cm in length. Mucosa was biopsied with a cold forceps for histology. Esophagogastric landmarks were identified: the upper extent of the gastric folds was found at 42 cm from the incisors. There is no endoscopic evidence of stricture, ulcerations, varices, findings consistent with candidiasis, vertical lines, white nummular lesions, white specks, mass, nodules, polyps or diverticula in the entire esophagus. The entire examined stomach was normal. There is no endoscopic evidence of bleeding, ulceration, varices, gastric antral vascular ectasia, angiodysplasia, angioectasia, portal hypertension gastropathy or tumor in the stomach. The examined duodenum was normal. Impression: - Non-severe reflux esophagitis with no bleeding. 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 Biopsied. - Esophagogastric landmarks identified. - Normal stomach. - Normal examined duodenum. Recommendation: - Use Protonix (pantoprazole) 40 mg PO daily for 5 years. - Use Gaviscon PO as directed daily. - QUIT CAFFEIN AND NSAIDS // IBUPROFEN, ADVIL, ALEVE, MOTRIN, EXCEDRIN, DOMINIQUE-SELTZER. - YOUR LOWER ESOPHAGEAL SPHINCTER IS EXTREMELY WEAK// INCOMPETENT ; RESULTING IN REFLUX OF GASTRIC CONTENTS , SOON YOU LIE DOWN. YOU NEED TO RAISE HEAD END OF BED BY 8 INCHES WITH WOODEN BLOCKS ; OTHER OPTION IS TO GET ELECTRICALLY OR HAND OPERATED BED. - Repeat upper endoscopy in 3 years to assess disease activity. Procedure Code(s): --- Professional --- 95725, Esophagogastroduodenoscopy, flexible, transoral; with biopsy, single or multiple Diagnosis Code(s): --- Professional --- K21.00, Gastro-esophageal reflux disease with esophagitis, without bleeding K22.8, Other specified diseases of esophagus R12, Heartburn CPT copyright 2020 [employer] [place] [employer]. All rights reserved. The codes documented in this report are preliminary and upon die forger review may be revised to meet current compliance requirements. MD Wilder Aguirre MD 01/01/2021 10:39:42 AM This report has been signed electronically. Number of Addenda: 0 Note Initiated On: 01/01/2021 10:12 AM [facility] NOVEL CORONAVIRUSon 12-29-19 21 NARRATIVE This test was perfor med using real time PCR and has been approved as Emergency Use Authorization (EUA) for the qualitative detection of SARS-CoV-2 nucleic acid. Normal [facility] Comment on above: Result Comment: Test ing performed at [place] [address] Performed By: #### C OVID #### [place] [address] SARS-CoV-2 (COVID-19) RNA DARLENE+probe Ql (Unsp spec) Not detected Normal NOT DETECTED [facility] Comment on above: Result Comment: Nega tive results do not preclude SARS-CoV-2 infection and should not be used as the sole basis for treatment or other patient management decisions. Optimum specimen types and timing for peak viral levels during infections caused by SARS-CoV-2 has not been determined. The possibility of a false negative result should especially be considered if the patient's recent exposures or clinical presentation suggest that SARS-CoV-2 infection is probable, and diagnostic tests for other causes of illness (e.g., other respiratory illness) are negative. Collection of a new specimen and re-testing may be necessary if the patient is critically ill or clinically deteriorating. Performed By: #### C OVID #### [place] [address] FREE T3on 12-18-2020 Free T3 [Mass/Vol] 2.58 pg/mL Low 2.77-5.27 [facility] C REACTIVE PROTEINon 021 CRP [Mass/Vol] 6.5 mg/L Normal 0-10.0 [facility] Comment on above: Performed By: #### E SR, CREACT #### Testing performed at [address] [place] [address] ESRon 12-17-2020 ESR (Bld) [Velocity] mm/h Normal 0-15 [facility] Comment on above: Performed By: #### E SR, CREACT #### Testing performed at [address] [address] PTH,INTACTon 12-17-2020 PTH,INTACT 47.0 pg/mL Normal 12-88 [facility] Comment on above: Performed By: #### R TSH, IPTH #### Testing performed at [address] [address] TSH,REFLEX FREE T4on 021 TSH,REFLEX FREE T4 2.307 uIU/ML Normal 0.45-5.33 [facility] Comment on above: Performed By: #### R TSH, IPTH #### Testing performed at [address] [place] [address] CBC WITH AUTO DIFFERENTIALon 12-03-2020 Basophils (Bld) [#/Vol] 0.03 10*3/uL [facility] Basophils/100 WBC (Bld) 0.6 % [facility] Eosinophils (Bld) [#/Vol] 0.13 10*3/uL [facility] Eosinophils/100 WBC (Bld) 2.5 % [facility] Erythrocyte distribution width (RBC) [Entitic vol] 12.8 % 11.6 - 14.8 % [facility] Hematocrit (Bld) [Volume fraction] 42.4 % 36.0 - 46.0 % [facility] Hemoglobin (Bld) [Mass/Vol] 13.9 g/dL 12.0 - 16.0 g/dL [facility] Immature granulocytes (Bld) [#/Vol] 0.01 10*3/uL [facility] Immature granulocytes/100 WBC (Bld) 0.20 % [facility] Comment on above: The IG parameter is the percentage of metamyelocytes, myelocytes and promyelocytes. An immature granulocyte count (IG) of 1% or more suggests the possibility of infection, an IG count of 3% is very likely related to an infection. Lymphocytes (Bld) [#/Vol] 2.18 10*3/uL [facility] Lymphocytes/100 WBC (Bld) 41.4 % [facility] MCH (RBC) [Entitic mass] 28.6 pg 26.0 - 34.0 pg [facility] MCHC (RBC) [Mass/Vol] 32.8 g/dL 31.0 - 37.0 g/dL [facility] MCV (RBC) [Entitic vol] 87.2 fL 80.0 - 100.0 fL [facility] Monocytes (Bld) [#/Vol] 0.40 10*3/uL [facility] Monocytes/100 WBC (Bld) 7.6 % [facility] Neutrophils (Bld) [#/Vol] 2.51 10*3/uL [facility] Neutrophils/100 WBC (Bld) 47.7 % [facility] Nucleated RBC (Bld) [#/Vol] 0.00 10*3/uL [facility] Nucleated RBC/100 WBC (Bld) [Ratio] 0.0 % [facility] Platelet mean volume (Bld) [Entitic vol] 10.6 fL 9.4 - 12.4 fL [facility] Platelets (Bld) [#/Vol] 210 10*3/uL [facility] RBC (Bld) [#/Vol] 4.86 10*6/uL [facility] WBC (Bld) [#/Vol] 5.26 10*3/uL [facility] Abdomen Pelvis With IV Co ntrast Onlyon 12-03-2020 EXAMINATION: CT SCAN ABDOMEN AND PELVIS HISTORY: ORDERING SYSTEM PROVIDED HISTORY: Nausea/vomiting; Epigastric pain, TECHNOLOGIST PROVIDED HISTORY: Illness/Other Reason for exam: Nausea/vomiting, Epigastric pain Encounter Type: Initial Additional signs and symptoms: ORDERING SYSTEM PROVIDED DIAGNOSIS CODES: COMPARISON: None. TECHNIQUE: Multiple computerized tomographic imaging of the abdomen and pelvis was performed following the administration of 75 mL Isovue-370 IV contrast. Multiplanar reformats are submitted. Dose reduction techniques were achieved by using: automated exposure control and/or adjustment of mA and/or kV according to patient size and/or use of iterative reconstruction technique. FINDINGS: Visualized lung alvarez are clear. CT ABDOMEN: The liver and spleen are homogeneous. The pancreas enhanced normally. The gallbladder is bile filled. The adrenal glands are not enlarged. The kidneys are similar in size and enhance homogeneously. There is no hydronephrosis. There is some thickening noted to the wall of the body of the stomach. This could indicate gastritis. The stomach was otherwise collapsed. The small bowel is not dilated. There is fecal debris in the colon. The appendix is normal. CT PELVIS: The uterus is enlarged. There is a 4.1 x 4 cm mass posterior to the uterus. It appears to arise from the uterus and could represent a large serosal fibroid. There is a moderate amount of free pelvic fluid also seen. There are phleboliths noted throughout the pelvis. The urinary bladder was distended without defect. The distal colon is unremarkable. The adnexal regions are symmetrical. MUSCULOSKELETAL FINDINGS: No acute osseous pathology. [facility] 1. Normal appendix 2 . No evidence of bowel obstruction. 3. There is thickening of the body of the stomach suggested which could indicate underlying gastritis. 4. 4.1 x 4 cm mass projects posteriorly from the uterus which could represent a large serosal fibroid. A pelvic ultrasound could be helpful. 5. Moderate amount of free pelvic fluid. [employer] Workstation ID: [id number] [facility] Interface, Rad In Fu ji Speechq - 12/03/2020 4:55 PM EST EXAMINATION: CT SCAN ABDOMEN AND PELVIS HISTORY: ORDERING SYSTEM PROVIDED HISTORY: Nausea/vomiting; Epigastric pain, TECHNOLOGIST PROVIDED HISTORY: Illness/Other Reason for exam: Nausea/vomiting, Epigastric pain Encounter Type: Initial Additional signs and symptoms: ORDERING SYSTEM PROVIDED DIAGNOSIS CODES: COMPARISON: None. TECHNIQUE: Multiple computerized tomographic imaging of the abdomen and pelvis was performed following the administration of 75 mL Isovue-370 IV contrast. Multiplanar reformats are submitted. Dose reduction techniques were achieved by using: automated exposure control and/or adjustment of mA and/or kV according to patient size and/or use of iterative reconstruction technique. FINDINGS: Visualized lung alvarez are clear. CT ABDOMEN: The liver and spleen are homogeneous. The pancreas enhanced normally. The gallbladder is bile filled. The adrenal glands are not enlarged. The kidneys are similar in size and enhance homogeneously. There is no hydronephrosis. There is some thickening noted to the wall of the body of the stomach. This could indicate gastritis. The stomach was otherwise collapsed. The small bowel is not dilated. There is fecal debris in the colon. The appendix is normal. CT PELVIS: The uterus is enlarged. There is a 4.1 x 4 cm mass posterior to the uterus. It appears to arise from the uterus and could represent a large serosal fibroid. There is a moderate amount of free pelvic fluid also seen. There are phleboliths noted throughout the pelvis. The urinary bladder was distended without defect. The distal colon is unremarkable. The adnexal regions are symmetrical. MUSCULOSKELETAL FINDINGS: No acute osseous pathology. IMPRESSION: 1. Normal appendix 2. No evidence of bowel obstruction. 3. There is thickening of the body of the stomach suggested which could indicate underlying gastritis. 4. 4.1 x 4 cm mass projects posteriorly from the uterus which could represent a large serosal fibroid. A pelvic ultrasound could be helpful. 5. Moderate amount of free pelvic fluid. [employer] Workstation ID: [id number] [facility] Chem 7on 12-03-2020 Anion gap [Moles/Vol] 11 mmol/L 10 - 2 0 mmol/L [facility] Chloride [Moles/Vol] 104 mmol/L 98 - 10 8 mmol/L [facility] Creatinine [Mass/Vol] 0.88 mg/dL 0.40 - 1.10 [facility] GFR/1.73 sq M predicted among non-blacks MDRD (S/P/Bld) [Vol rate/Area] The eGFR should be used for monitoring renal function only and not for medication dosing. [facility] GFR/1.73 sq M.predicted CKD-EPI (S/P/Bld) [Vol rate/Area] 84 >=60 mL/min/1.7 3 m2 [facility] Glucose [Mass/Vol] 85 mg/dL 65 - 99 mg/dL [facility] HCO3 [Moles/Vol] 27 mmol/L 21 - 32 mmol/L [facility] Potassium [Moles/Vol] 3.6 mmol/L 3.5 - 5.1 mmol/L [facility] Sodium [Moles/Vol] 138 mmol/L 135 - 145 mmol/L [facility] Urea nitrogen [Mass/Vol] 14 mg/dL 8 - 25 mg/dL [facility] Urea nitrogen/Creatinine [Mass ratio] 15.9 mg/mg [facility] Hepatic Function Panel (LFT) on 12-03-2020 Albumin [Mass/Vol] 4.2 g/dL 3.2 - 5.2 g/dL [facility] ALP [Catalytic activity/Vol] 37 U/L Low 40 - 140 U/L [facility] ALT [Catalytic activity/Vol] 21 U/L 14 - 65 U/L [facility] AST [Catalytic activity/Vol] 20 U/L 0 - 45 U/L [facility] Bilirubin [Mass/Vol] 1.0 mg/dL 0.0 - 1 .3 mg/dL [facility] Bilirubin.conjugated [Mass/Vol] 0.3 mg/dL 0.0 - 0.4 mg/dL [facility] Interpretation and review of laboratory results Abnormal [facility] Protein [Mass/Vol] 7.6 g/dL 6.0 - 8.0 g/dL [facility] Lipaseon 12-03-2020 Lipase [Catalytic activity/Vol] 77 U/L 73 - 393 U/L [facility] Otheron 12-03-2020 Extra Tube Hold for add-ons. [facility] Comment on above: Auto resulted. Interpretation and review of laboratory results Normal [facility] URINALYSISon 12-03-2020 Bacteria Auto Ql (U) Few Abnormal None Se en /hpf [facility] Bilirubin Ql (U) Negative Negative [facility] Clarity Refractometry automated (U) Hazy Abnormal Clear [facility] Color (U) Yellow Colorless, Yellow [facility] Epithelial cells.squamous Auto (Urine sed) [#/Area] 12 High [facility] Glucose Auto test strip (U) [Mass/Vol] Negative Negative mg/dL [facility] Hemoglobin Auto test strip Ql (U) Negative Negative [facility] Interpretation and review of laboratory results Abnormal [facility] Ketones (U) [Mass/Vol] Negative Negat shell mg/dL [facility] Leukocyte esterase Auto test strip Ql (U) Small Abnormal Negative [facility] h Mucus Auto (Urine sed) [#/Area] Many Abnormal None Seen, Rare /lpf [facility] Nitrite Auto test strip Ql (U) Negative Negative [facility] pH (U) 6.0 [pH] [facility] Protein (U) [Mass/Vol] Negative Negat shell mg/dL [facility] RBC Auto (Urine sed) [#/Area] 6 High [facility] Specific gravity (U) [Rel density] 1.030 High [facility] Urobilinogen (U) [Mass/Vol] <2.0 <2.0 mg/dL [facility] WBC Auto (Urine sed) [#/Area] 3 [facility] Microscopic examinat ion is performed on all urinalysis samples and only positive findings are reported. The test for blood on the chemical analytic portion of urinalysis may also be positive due to hemoglobinuria and myoglobinuria and if red blood cells are present they are quantified by microscopic examination. [facility] Urine Pregnancyon 12-03-2020 HCG ( test) Ql (U) Negative Negative [facility] Interpretation and review of laboratory results Normal [facility] SARS-COV-2,NAAon 11-07-2020 SARS-CoV-2 (COVID-19) RNA DARLENE+probe Ql (Unsp spec) Not detected Normal [facility] Comment on above: Result Comment: Refe rence range: Not Detected (NOTE) This nucleic acid amplification test was developed and its performance characteristics determined by [employer]. Nucleic acid amplification tests include PCR and TMA. This test has not been FDA cleared or approved. This test has been authorized by FDA under an Emergency Use Authorization (EUA). This test is only authorized for the duration of time the declaration that circumstances exist justifying the authorization of the emergency use of in vitro diagnostic tests for detection of SARS-CoV-2 virus and/or diagnosis of COVID-19 infection under section 564(b)(1) of the Act, 21 U.S.C. 360bbb-3(b) (1), unless the authorization is terminated or revoked sooner. When diagnostic testing is negative, the possibility of a false negative result should be considered in the context of a patient's recent exposures and the presence of clinical signs and symptoms consistent with COVID-19. An individual without symptoms of COVID- 19 and who is not shedding SARS-CoV-2 virus would expect to have a negative (not detected) result in this assay. POCT INFLUENZA, A Bon 2019 FLUAV Ag IA Ql (Nph) Negative [employer] FLUBV Ag IA Ql (Nph) Negative [facility] [email or web address] POCT RAPID STREP Aon 020 S. pyogenes Ag Ql (Throat) Negative (+/-) [facility] Knee Right 1-2 [employer] 10-07-2019 Operative localizati on. [employer] Workstation ID: [id number] [facility] EXAMINATION: XR OR K NEE RIGHT 1-2 VIEWS HISTORY: ORDERING SYSTEM PROVIDED HISTORY: Rt. knee screw removal, TECHNOLOGIST PROVIDED HISTORY: Illness/Other Reason for exam: Rt ACL screw removal in [place] Encounter Type: Initial Additional signs and symptoms: UN Fluoro dose in mGy: .5 ORDERING SYSTEM PROVIDED DIAGNOSIS CODES: M17.11 Primary osteoarthritis of right knee M17.12 Primary osteoarthritis of left knee M17.11 Primary osteoarthritis of right knee M17.12 Primary osteoarthritis of left knee COMPARISON: August 01, 2019. TECHNIQUE: Fluoro Dose Ka,r mGy: Fluoro dose in Ka,r mGy: 0.5 A single AP digital image was performed in the operating room. FINDINGS: There is the tip of a hemostat adjacent to the screw in the proximal tibial plateau. Degenerative changes are seen in the knee. [facility] Interface, Rad In Fu ji Speechq - 10/07/2019 4:27 PM EST EXAMINATION: XR OR KNEE RIGHT 1-2 VIEWS HISTORY: ORDERING SYSTEM PROVIDED HISTORY: Rt. knee screw removal, TECHNOLOGIST PROVIDED HISTORY: Illness/Other Reason for exam: Rt ACL screw removal in [place] Encounter Type: Initial Additional signs and symptoms: UN Fluoro dose in mGy: .5 ORDERING SYSTEM PROVIDED DIAGNOSIS CODES: M17.11 Primary osteoarthritis of right knee M17.12 Primary osteoarthritis of left knee M17.11 Primary osteoarthritis of right knee M17.12 Primary osteoarthritis of left knee COMPARISON: August 01, 2019. TECHNIQUE: Fluoro Dose Ka,r mGy: Fluoro dose in Ka,r mGy: 0.5 A single AP digital image was performed in the operating room. FINDINGS: There is the tip of a hemostat adjacent to the screw in the proximal tibial plateau. Degenerative changes are seen in the knee. IMPRESSION: Operative localization. EHR/bd Workstation ID: [id number] [facility] ORT LARGE JOINT ARTHROCEN TESISon 08-08-2019 Tammy Silva CNP 08/08/2019 2:14 PM LG Jt Injection/Arthrocentesis: L knee Performed by: Tammy Silva CNP Authorized by: Tammy Silva CNP CPT 85223 - Large Joint Arthrocentesis: Consent given by: Patient Time out: Immediately prior to the procedure a time out was called Supporting Documentation: Indications: Pain and diagnostic evaluation Procedure Details: Location: Knee Site: L knee Needle size: 22 G Approach: Anterolateral Medications: 40 mg triamcinolone acetonide 40 mg/mL Anesthetic used: Lidocaine 1% Anesthetic amount (mL): 2 Patient tolerance: Patient tolerated the procedure well with no immediate complications [facility] Tammy Silva CNP 08/08/2019 2:14 PM LG Jt Injection/Arthrocentesis: R knee Performed by: Tammy Silva CNP Authorized by: Tammy Silva CNP CPT 33912 - Large Joint Arthrocentesis: Consent given by: Patient Time out: Immediately prior to the procedure a time out was called Physician or proceduralist has discussed critical or nonroutine steps, procedure duration and anticipated blood loss: Yes Supporting Documentation: Indications: Pain, joint swelling and diagnostic evaluation Procedure Details: Location: Knee Site: R knee Needle size: 22 G Approach: Anterolateral Medications: 40 mg triamcinolone acetonide 40 mg/mL Anesthetic used: Lidocaine 1% Anesthetic amount (mL): 2 Patient tolerance: Patient tolerated the procedure well with no immediate complications [facility] XR Knees Bilateral 4+ Views (Specify Views in Comments)on 08-01-2019 Moderate tricompartm ental osteoarthritis of the right knee with medial compartment predominance. Mild medial compartment degenerative changes in the left knee. Postsurgical findings of bilateral ACL repair. [employer]/ Workstation ID: [id number] [facility] EXAMINATION: XR KNEE S BILATERAL 4+ VIEWS (SPECIFY VIEWS IN COMMENTS) HISTORY: ORDERING SYSTEM PROVIDED HISTORY: Knee pain, unspecified chronicity, unspecified laterality, TECHNOLOGIST PROVIDED HISTORY: Illness/Other Reason for exam: Chronic Bilateral knee pain. S/p hx of bilateral knee surgeries Cancer History: u Surgery, RadiationHistory: u Encounter Type: Ongoing Additional signs and symptoms: Chronic Bilateral knee pain. S/p hx of bilateral knee surgeries ORDERING SYSTEM PROVIDED DIAGNOSIS CODES: M25.569 Knee pain, unspecified chronicity, unspecified laterality COMPARISON: X-ray right knee 06/26/2015. FINDINGS: Four views of the right knee were obtained. There are postsurgical findings of ACL repair. There is joint space narrowing primarily involving the medial compartment with marginal osteophyte formation. Mild degenerative changes are noted of the patellofemoral joint. The patella is in appropriate position. No significant joint effusion. Four views of the left knee were obtained. There are postsurgical findings of ACL repair. There is mild medial compartment joint space narrowing with marginal osteophyte formation. Articular surfaces smooth in contour. The patella is in appropriate position. No significant joint effusion. [facility] Interface, Rad In Fu ji Speechq - 08/01/2019 6:01 PM EDT EXAMINATION: XR KNEES BILATERAL 4+ VIEWS (SPECIFY VIEWS IN COMMENTS) HISTORY: ORDERING SYSTEM PROVIDED HISTORY: Knee pain, unspecified chronicity, unspecified laterality, TECHNOLOGIST PROVIDED HISTORY: Illness/Other Reason for exam: Chronic Bilateral knee pain. S/p hx of bilateral knee surgeries Cancer History: u Surgery, RadiationHistory: u Encounter Type: Ongoing Additional signs and symptoms: Chronic Bilateral knee pain. S/p hx of bilateral knee surgeries ORDERING SYSTEM PROVIDED DIAGNOSIS CODES: M25.569 Knee pain, unspecified chronicity, unspecified laterality COMPARISON: X-ray right knee 06/26/2015. FINDINGS: Four views of the right knee were obtained. There are postsurgical findings of ACL repair. There is joint space narrowing primarily involving the medial compartment with marginal osteophyte formation. Mild degenerative changes are noted of the patellofemoral joint. The patella is in appropriate position. No significant joint effusion. Four views of the left knee were obtained. There are postsurgical findings of ACL repair. There is mild medial compartment joint space narrowing with marginal osteophyte formation. Articular surfaces smooth in contour. The patella is in appropriate position. No significant joint effusion. IMPRESSION: Moderate tricompartmental osteoarthritis of the right knee with medial compartment predominance. Mild medial compartment degenerative changes in the left knee. Postsurgical findings of bilateral ACL repair. [employer] Workstation ID: [id number] [facility] AMB REFERRAL TO NEUROLOGYon 05-04-2019 emg 04/2019 [facility] EKGon 03-23-2019 Ordered by an unspec ified provider. [facility] Otheron 03-23-2019 Waqar Alcocer MD 03/23/2019 3:09 PM [facility] EEG Report Reason for EEG: Seizures Summary: This is a 16 channel digital EEG recording. There is a moderately well-developed, moderately well organized background activity with a posterior dominant rhythm of 9 to 10 Hz. Hyperventilation and photic stimulations were not done. No sleep patterns are noted. No clear epileptiform discharges or ictal activity were seen. Impression: This is a normal EEG in the awake state. There is no clear electrodiagnostic evidence of a diffuse or focal neurophysiological disturbance. No clear epileptiform discharges or ictal activity was seen. [facility] Alcohol, Medicalon 9 Ethanol mass conc 27.20 mg/dL High <10.00 [facility] Interpretation and review of laboratory results Abnormal [facility] CBC WITH AUTO DIFFERENTIALon 03-22-2019 Basophils #/vol (Bld) 0.03 10*3/uL [facility] Basophils/100 WBC (Bld) 0.4 % [facility] Eosinophils #/vol (Bld) 0.07 10*3/uL [facility] Eosinophils/100 WBC (Bld) 0.9 % [facility] Erythrocyte distribution width Entitic volume (RBC) 12.4 % 11.6 - 14.8 % [facility] Hematocrit Volume Fraction (Bld) 40.0 % 36 - 46 % [facility] Hemoglobin mass conc (Bld) 13.9 g/dL 12 - 16 g/dL [facility] Immature granulocytes #/vol (Bld) 0.02 10*3/uL [facility] Immature granulocytes/100 WBC (Bld) 0.30 % [facility] Comment on above: The IG parameter is the percentage of metamyelocytes, myelocytes, and promyelocytes. Lymphocytes #/vol (Bld) 2.25 10*3/uL [facility] Lymphocytes/100 WBC (Bld) 30.0 % [facility] MCH Entitic mass (RBC) 30.0 pg 26 - 34 pg [facility] MCHC mass conc (RBC) 34.8 g/dL 31 - 37 g/dL [facility] MCV Entitic volume (RBC) 86.4 fL 80 - 100 fL [facility] Monocytes #/vol (Bld) 0.44 10*3/uL [facility] Monocytes/100 WBC (Bld) 5.9 % [facility] Neutrophils #/vol (Bld) 4.70 10*3/uL [facility] Neutrophils/100 WBC (Bld) 62.5 % [facility] Nucleated RBC #/vol (Bld) 0.00 10*3/uL [facility] Nucleated RBC/100 WBC Ratio (Bld) 0.0 % [facility] Platelet mean volume Entitic volume (Bld) 9.6 fL 9 - 15.5 fL [facility] Platelets #/vol (Bld) 253 10*3/uL [facility] RBC #/vol (Bld) 4.63 10*6/uL [facility] WBC #/vol (Bld) 7.51 10*3/uL [facility] CT CERVICAL SPINE WITHOUT CO NTRASTon 03-22-2019 Interface, Rad In [employer] - 03/22/2019 10:41 AM EDT EXAMINATION: CT CERVICAL SPINE WITHOUT CONTRAST HISTORY: ORDERING SYSTEM PROVIDED HISTORY: fall, TECHNOLOGIST PROVIDED HISTORY: Reason for exam: left sided weakness prior to passing out last night at 18:30, hit right side of head, right eye swelling and pain, neck pain Injury/Trauma Encounter Type: Initial Mechanism of injury: fall ORDERING SYSTEM PROVIDED DIAGNOSIS CODES: COMPARISON: None TECHNIQUE: CT cervical spine without IV contrast. Coronal and sagittal reformations were performed. Dose reduction techniques were achieved by using automated exposure control and/or adjustment of mA and/or kV according to patient size and/or use of iterative reconstruction technique. FINDINGS: There is straightening of the normal lordotic curvature of the cervical spine, which may be positional, degenerative, or due to muscle spasm. C3-4 and C4-5: Small annular bulges, C3-4 small left uncovertebral osteophytes and congenitally short pedicles result in mild effacement of the ventral thecal sac and C3-4 mild left foraminal stenosis. C5-6: A right paracentral/lateral recess disc protrusion with small right uncovertebral osteophytes and congenitally poles results in moderate central spinal canal stenosis (7.7 mm AP diameter of the thecal sac), narrowing of the right lateral recess and mild right foraminal stenosis. C6-7: A broad-based disc-osteophyte complex and congenitally short pedicles result in moderate central spinal canal stenosis (7.5 mm AP diameter of the thecal sac), narrowing of the right lateral recess, and severe right and moderate left foraminal stenosis. A small right paracentral disc protrusion mildly effaces the ventral thecal sac. C2-3, T1-2 and T2-3 levels: No disc herniation or stenosis is seen. No acute fracture, traumatic malalignment, or other bony abnormality is seen. IMPRESSION: 1. C5-6 and C6-7 moderate degenerative disc changes and congenitally short pedicles result in moderate central spinal canal stenosis, narrowing of the right lateral recesses, C5-6 mild right foraminal stenosis and C6-7 severe right and moderate left foraminal stenosis. 2. C3-4 and C4-5 mild degenerative disc changes and congenitally short pedicles result in mild effacement of the ventral thecal sac and C3-4 mild left foraminal stenosis. 3. No acute fracture or traumatic malalignment. 4. Straightening of the normal lordotic curvature of the cervical spine, which may be positional, degenerative, or due to muscle spasm. Workstation ID: [id number] [facility] EXAMINATION: CT CERV ICAL SPINE WITHOUT CONTRAST HISTORY: ORDERING SYSTEM PROVIDED HISTORY: fall, TECHNOLOGIST PROVIDED HISTORY: Reason for exam: left sided weakness prior to passing out last night at 18:30, hit right side of head, right eye swelling and pain, neck pain Injury/Trauma Encounter Type: Initial Mechanism of injury: fall ORDERING SYSTEM PROVIDED DIAGNOSIS CODES: COMPARISON: None TECHNIQUE: CT cervical spine without IV contrast. Coronal and sagittal reformations were performed. Dose reduction techniques were achieved by using automated exposure control and/or adjustment of mA and/or kV according to patient size and/or use of iterative reconstruction technique. FINDINGS: There is straightening of the normal lordotic curvature of the cervical spine, which may be positional, degenerative, or due to muscle spasm. C3-4 and C4-5: Small annular bulges, C3-4 small left uncovertebral osteophytes and congenitally short pedicles result in mild effacement of the ventral thecal sac and C3-4 mild left foraminal stenosis. C5-6: A right paracentral/lateral recess disc protrusion with small right uncovertebral osteophytes and congenitally poles results in moderate central spinal canal stenosis (7.7 mm AP diameter of the thecal sac), narrowing of the right lateral recess and mild right foraminal stenosis. C6-7: A broad-based disc-osteophyte complex and congenitally short pedicles result in moderate central spinal canal stenosis (7.5 mm AP diameter of the thecal sac), narrowing of the right lateral recess, and severe right and moderate left foraminal stenosis. A small right paracentral disc protrusion mildly effaces the ventral thecal sac. C2-3, T1-2 and T2-3 levels: No disc herniation or stenosis is seen. No acute fracture, traumatic malalignment, or other bony abnormality is seen. [facility] 1. C5-6 and C6-7 mod erate degenerative disc changes and congenitally short pedicles result in moderate central spinal canal stenosis, narrowing of the right lateral recesses, C5-6 mild right foraminal stenosis and C6-7 severe right and moderate left foraminal stenosis. 2. C3-4 and C4-5 mild degenerative disc changes and congenitally short pedicles result in mild effacement of the ventral thecal sac and C3-4 mild left foraminal stenosis. 3. No acute fracture or traumatic malalignment. 4. Straightening of the normal lordotic curvature of the cervical spine, which may be positional, degenerative, or due to muscle spasm. Workstation ID: [id number] [facility] CT HEAD WITHOUT CONTRAST ([facility])on 03-22-2019 1. No acute infarct, hemorrhage or acute intracranial injury. However, if clinical suspicion for ischemic event persists further evaluation with diffusion-weighted MRI could be performed which is very sensitive for acute ischemic changes, provided, there are no contraindications for MRI. 2. No skull fractures. KKV/pji Workstation ID: [id number] [facility] CLINICAL HISTORY: Left-sided weakness prior to passing out at 1830 hours on 03/21/2019. Hit right side of the head. Swelling of the right eye, pain, neck pain. EXAMINATION: UNENHANCED CT SCAN OF THE BRAIN: 03/22/2019 COMPARISON: None. TECHNIQUE: 3 mm axial images from skull base through vertex without intravenous contrast were obtained. Sagittal, coronal reconstructions were performed. Dose reduction techniques were achieved by using automated exposure control and/or adjustment of mA and/or kV according to patient size and/or use of iterative reconstruction technique. FINDINGS: The ventricles, sulcal, cisternal spaces are normal. There is no intra- or extraaxial hemorrhage. Normal differentiation of white and cano matter is maintained. There is no definite mass, mass effect or midline shift. The visualized intraorbital contents, are normal. There is mild mucosal thickening involving bilateral maxillary antra. The rest of paranasal sinuses, mastoid air cells appear normal. The calvarium appears intact. [facility] Interface, Rad In Fu ji Speechq - 03/22/2019 10:49 AM EDT CLINICAL HISTORY: Left-sided weakness prior to passing out at 1830 hours on 03/21/2019. Hit right side of the head. Swelling of the right eye, pain, neck pain. EXAMINATION: UNENHANCED CT SCAN OF THE BRAIN: 03/22/2019 COMPARISON: None. TECHNIQUE: 3 mm axial images from skull base through vertex without intravenous contrast were obtained. Sagittal, coronal reconstructions were performed. Dose reduction techniques were achieved by using automated exposure control and/or adjustment of mA and/or kV according to patient size and/or use of iterative reconstruction technique. FINDINGS: The ventricles, sulcal, cisternal spaces are normal. There is no intra- or extraaxial hemorrhage. Normal differentiation of white and cano matter is maintained. There is no definite mass, mass effect or midline shift. The visualized intraorbital contents, are normal. There is mild mucosal thickening involving bilateral maxillary antra. The rest of paranasal sinuses, mastoid air cells appear normal. The calvarium appears intact. IMPRESSION: 1. No acute infarct, hemorrhage or acute intracranial injury. However, if clinical suspicion for ischemic event persists further evaluation with diffusion-weighted MRI could be performed which is very sensitive for acute ischemic changes, provided, there are no contraindications for MRI. 2. No skull fractures. KKV/pji Workstation ID: [id number] [facility] CT MAXILLOFACIAL WITHOUT CON TRASTon 03-22-2019 Swelling and hematom a over the anterolateral right facial region and periorbital soft tissues without underlying fracture of the facial bones. Globes, and orbital contents appear to be normal. [employer] Workstation ID: [id number] [facility] Interface, Rad In Mariano Moralesq - 03/22/2019 2:09 PM EDT EXAMINATION: CT MAXILLOFACIAL WITHOUT CONTRAST HISTORY: ORDERING SYSTEM PROVIDED HISTORY: fall, TECHNOLOGIST PROVIDED HISTORY: Reason for exam: left sided weakness prior to passing out last night at 18:30, hit right side of head, right eye swelling and pain, neck pain Injury/Trauma Encounter Type: Initial Mechanism of injury: fall ORDERING SYSTEM PROVIDED DIAGNOSIS CODES: COMPARISON: None. TECHNIQUE: CT examination of the facial bones without IV contrast. Multiplanar reconstruction review is also performed. Dose reduction techniques were achieved by using automated exposure control and/or adjustment of mA and/or kV according to patient size and/or use of iterative reconstruction technique. FINDINGS: Soft tissue hematoma is seen over the anterolateral right frontal and periorbital region, without significant lower facial swelling or hematoma. Bilaterally the globes are intact. The orbital contents are normal. The included intracranial contents and soft tissues of the lower facial region are normal. I see intact mandible, normal temporomandibular joints, and zygomatic arches. Bilaterally the nasal bones, lateral orbital margins, and frontal bone appear to be intact. IMPRESSION: Swelling and hematoma over the anterolateral right facial region and periorbital soft tissues without underlying fracture of the facial bones. Globes, and orbital contents appear to be normal. [employer] Workstation ID: [id number] [facility] EXAMINATION: CT MAXILLOFACIAL WITHOUT CONTRAST HISTORY: ORDERING SYSTEM PROVIDED HISTORY: fall, TECHNOLOGIST PROVIDED HISTORY: Reason for exam: left sided weakness prior to passing out last night at 18:30, hit right side of head, right eye swelling and pain, neck pain Injury/Trauma Encounter Type: Initial Mechanism of injury: fall ORDERING SYSTEM PROVIDED DIAGNOSIS CODES: COMPARISON: None. TECHNIQUE: CT examination of the facial bones without IV contrast. Multiplanar reconstruction review is also performed. Dose reduction techniques were achieved by using automated exposure control and/or adjustment of mA and/or kV according to patient size and/or use of iterative reconstruction technique. FINDINGS: Soft tissue hematoma is seen over the anterolateral right frontal and periorbital region, without significant lower facial swelling or hematoma. Bilaterally the globes are intact. The orbital contents are normal. The included intracranial contents and soft tissues of the lower facial region are normal. I see intact mandible, normal temporomandibular joints, and zygomatic arches. Bilaterally the nasal bones, lateral orbital margins, and frontal bone appear to be intact. [facility] Chem 7on 03-22-2019 Anion gap molar conc 12 mmol/L 10 - 20 mmol/L [facility] Chloride molar conc 108 mmol/L 98 - 108 mmol/L [facility] Creatinine mass conc 0.84 mg/dL 0.4 - 1 .1 mg/dL [facility] GFR/1.73 sq M predicted among non-blacks MDRD vol rate/area (S/P/Bld) The eGFR should be used for monitoring renal function only and not for medication dosing. [facility] GFR/1.73 sq M.predicted CKD-EPI vol rate/area (S/P/Bld) 89 >=60 mL/min/1.7 3 m2 [facility] Glucose mass conc 74 mg/dL 65 - 99 mg/dL [facility] HCO3 molar conc 25 mmol/L 21 - 32 mmol/L [facility] Potassium molar conc 3.8 mmol/L 3.5 - 5 .1 mmol/L [facility] Sodium molar conc 141 mmol/L 135 - 145 mmol/L [facility] Urea nitrogen mass conc 11 mg/dL 8 - 25 mg/dL [facility] Urea nitrogen/Creatinine mass ratio 13.1 mg/mg [facility] ECG 12-LEADon 03-22-2019 Atrial Rate 48 BPM [facility] P [place] 58 degrees [facility] P-R Interval 132 ms [facility] Q-T Interval 506 ms [facility] QRS Duration 92 ms [facility] QTC Calculation (Bezet) 452 ms [facility] R [place] 70 degrees [facility] T [place] 60 degrees [facility] Ventricular Rate 48 BPM [facility] th Poor data qualit y, interpretation may be adversely affected Sinus bradycardia Otherwise normal ECG ECG Cart Interpretation see physician note for interpretation. Confirmed by Bhargavi Salinas ([id number]) on 03/22/2019 12:06:31 PM [facility] ECHOCARDIOGRAM COMPLETEon [address] [address] [place] [address] ECHOCARDIOGRAPHY REPORT - [facility] Name: DEVYN NARANJO Age: 39 years Date: 03/22/2019 Hospital #: : 1980 Room: [address] [place] [address] #: [id number] Sex: F Tech: [place] Ordering Physician: [id number] THIERRY Height: 65.00 in Sys BP: 157 CHAU cc: , Weight: 151.00 Renee BP: 88 Reading Physician: [id number] CALDERON Rhythm: Sinus bradycardia BOAZ/ Electronically Signed [id number] CALDERON BSA: 1.76 m by: BOAZ on: 03/22/2019 Reason for Study: Syncope History: Conclusions: Normal LV size and systolic function, normal wall motion. LVEF greater than 65% Normal diastolic function Normal RV size and function No hemodynamically significant valvular disease Findings: 1. Quality: Adequate. 2. Left Ventricle: Normal size and systolic function. Normal wall motion. LVEF greater than 65%. Normal diastolic filling. 3. Left Atrium: Normal size. 4. Right Ventricle: Normal size and systolic function. 5. Right Atrium: Normal size. 6. Aortic Valve: Trileaflet and nonrestrictive. No significant insufficiency. 7. Mitral Valve: Normal appearance. No significant insufficiency or stenosis identified. 8. Tricuspid Valve: Normal appearance. No significant insufficiency. 9. Pulmonic Valve: Grossly normal. No significant stenosis or insufficiency on Doppler. 10. Aortic Root: Normal size and appearance of the aortic root. 11. Venous: Normal respiratory collapse of the inferior vena cava consistent with normal right atrial pressures. 12. Pericardium: No significant effusion identified. 13. Other: No obvious intra atrial shunt by Color Doppler. Patient Values (normal ranges in parenthesis) 2-D Doppler RVd 3.30 cm (< 4.2) LVOT Diam 2.1 cm IVSd 0.82 cm FELTON 2.98 cm AV Vmax 1.6 m/s LVd 4.63 cm (4.2 - 5.8 Male) AV mean grad. 5.0 mmHg (3.8 - 5.2 Female) AV peak grad. 10.9 mmHg LVPWd 0.90 cm LVs 2.57 cm (2.5 - 3.6 Male) AR Vena Contracta (2.2 - 3.5 Female) MV A Vmax 0.38 m/s Ao Root Diameter (< 3.7 Male) MVA 1.44 cm2 (<3.3 Female) Ao Root Diameter (< 3.7 Male) MV E Vmax 1.0 m/s (<3.3 Female) Ao Root d 2D 3.20 cm MV E/A ratio 2.8 LVEF 76 % (50 - 70) MV P1/2T LVFS 44 % (28 - 41) MR ERO LV mass index 74 g/m (< 115 Male) RVSP (< 95 Female) RVFW S' RWT 0.39 (< .42) TR Vmax LVEF MOD 4C 75.9 % RA Pressure 3 mmHg LVEF MOD 2C 76.4 % LVEF Biplane 76.3 % (52 - 72 Male) PV Vmax 1.05 m/s (54 - 74 Female) LA Index (BP) 23.8 ml/m TAPSE LAESV COMPLIANCE CLERK NOTES: Definity (if used): ml Final [facility], Rad In artlab Xper Echopacs - 03/22/2019 3:47 [place] [address] [place] [address] ----- ECHOCARDIOGRAPHY REPORT - [facility] ----- Name: DEVYN NARANJO Age: 39 years Date: 03/22/2019 Hospital #: : 1980 Room: [address] [place] [address] Rec #: [id number] Sex: F Tech: [place] Cote Ordering Physician: [id number] THIERRY Height: 65.00 in Sys BP: 157 CHAU cc: , Weight: 151.00 Renee BP: 88 Reading Physician: [id number] CALDERON Rhythm: Sinus bradycardia BOAZ/ Electronically Signed [id number] CONSTANCE CALDERON BSA: 1.76 m by: BOAZ on: 03/22/2019 Reason for Study: Syncope History: Conclusions: Normal LV size and systolic function, normal wall motion. LVEF greater than 65% Normal diastolic function Normal RV size and function No hemodynamically significant valvular disease Findings: 1. Quality: Adequate. 2. Left Ventricle: Normal size and systolic function. Normal wall motion. LVEF greater than 65%. Normal diastolic filling. 3. Left Atrium: Normal size. 4. Right Ventricle: Normal size and systolic function. 5. Right Atrium: Normal size. 6. Aortic Valve: Trileaflet and nonrestrictive. No significant insufficiency. 7. Mitral Valve: Normal appearance. No significant insufficiency or stenosis identified. 8. Tricuspid Valve: Normal appearance. No significant insufficiency. 9. Pulmonic Valve: Grossly normal. No significant stenosis or insufficiency on Doppler. 10. Aortic Root: Normal size and appearance of the aortic root. 11. Venous: Normal respiratory collapse of the inferior vena cava consistent with normal right atrial pressures. 12. Pericardium: No significant effusion identified. 13. Other: No obvious intra atrial shunt by Color Doppler. Patient Values (normal ranges in parenthesis) 2-D Doppler RVd 3.30 cm (< 4.2) LVOT Diam 2.1 cm IVSd 0.82 cm FELTON 2.98 cm AV Vmax 1.6 m/s LVd 4.63 cm (4.2 - 5.8 Male) AV mean grad. 5.0 mmHg (3.8 - 5.2 Female) AV peak grad. 10.9 mmHg LVPWd 0.90 cm LVs 2.57 cm (2.5 - 3.6 Male) AR Vena Contracta (2.2 - 3.5 Female) MV A Vmax 0.38 m/s Ao Root Diameter (< 3.7 Male) MVA 1.44 cm2 (<3.3 Female) Ao Root Diameter (< 3.7 Male) MV E Vmax 1.0 m/s (<3.3 Female) Ao Root d 2D 3.20 cm MV E/A ratio 2.8 LVEF 76 % (50 - 70) MV P1/2T LVFS 44 % (28 - 41) MR ERO LV mass index 74 g/m (< 115 Male) RVSP (< 95 Female) RVFW S' RWT 0.39 (< .42) TR Vmax LVEF MOD 4C 75.9 % RA Pressure 3 mmHg LVEF MOD 2C 76.4 % LVEF Biplane 76.3 % (52 - 72 Male) PV Vmax 1.05 m/s (54 - 74 Female) LA Index (BP) 23.8 ml/m TAPSE LAESV COMPLIANCE CLERK NOTES: Definity (if used): ml Final IMPRESSION: Normal LV size and systolic function, normal wall motion. LVEF greater than 65% [facility] HCG (QUANTITATIVE)on 019 HCG Qn m[IU]/mL [facility] HCG.beta subunit ( test) Ql (U) Males and non females: <5 mIU/mL Females during : 3-4 weeks 9-130 mIU/mL 4-5 weeks 75-2600 mIU/mL 5-6 weeks 850-20,800 mIU/mL 6-7 weeks 4000-100,200 mIU/mL 7-12 weeks 11,500-289,000 mIU/mL 12-16 weeks 18,300-137,000 mIU/mL 16-29 weeks 1,400-53,000 mIU/mL 29-41 weeks 940-60,000 mIU/mL [facility] Hemoglobin A1con 03-22-2019 Average glucose Estimated from glycated hemoglobin mass conc (Bld) 97 mg/dL 68 - 114 mg/dL [facility] Hemoglobin A1c/Hemoglobin.total mass fraction (Bld) 5.0 % 4 - 5.6 % [facility] Comment on above: Normal: 4.0% - 5.6% Increased risk for diabetes: 5.7% - 6.4% Diabetes: >= 6.5% Pediatrics: No established reference range Estimated average glucose: 68-114 mg/dL Please note: Reference intervals were changed as of 12/02/2018 to align with current Citizen Of [place] Diabetes Association guidelines Interpretation and review of laboratory results Normal [facility] Hepatic Function Panel (LFT) on 03-22-2019 Albumin mass conc 4.1 g/dL 3.2 - 5.2 g/dL [facility] ALP enzyme act/vol 44 U/L 40 - 140 U/L [facility] ALT enzyme act/vol 24 U/L 14 - 65 U/L [facility] AST enzyme act/vol 26 U/L 0 - 45 U/L [facility] alth Bilirubin mass conc 0.5 mg/dL 0 - 1.3 mg/dL [facility] Bilirubin.conjugated mass conc 0.1 mg/dL 0 - 0.4 mg/dL [facility] Protein mass conc 8.0 g/dL 6 - 8 g/dL [facility] lth Lactic Acid, Plasmaon 2018 Interpretation and review of laboratory results Normal [facility] Lactate molar conc 1.5 mmol/L 0.6 - 2 mmol/L [facility] Lipaseon 03-22-2019 Lipase enzyme act/vol 85 U/L 73 - 3 93 U/L [facility] Lipid Panelon 03-22-2019 Cholesterol in HDL mass conc 81 mg/dL 40 - 59 [facility] Comment on above: National Cholesterol Education Program Guidelines: HDL Cholesterol Low: <40 mg/dL Near Optimal: 40-59 mg/dL High: greater than or equal to 60 mg/dL Cholesterol in LDL mass conc 71 mg/dL 10 - 130 mg/dL [facility] Comment on above: National Cholesterol Education Program Guidelines: LDL Cholesterol Optimal: <100 mg/dL Near Optimal/above Optimal: 100-129 mg/dL Borderline High: 130-159 mg/dL High: 160-189 mg/dL Very High: greater than or equal to 190 mg/dL Reference range change on 11/09/17 to reflect NCEP guidelines. Cholesterol mass conc 168 mg/dL 100 - 199 mg/dL [facility] Comment on above: National Cholesterol Education Program Guidelines: Cholesterol Desirable: <200 mg/dL Borderline High: 200-239 mg/dL High: greater than or equal to 240 mg/dL Cholesterol non HDL mass conc 87 mg/dL [facility] Comment on above: National Cholesterol Education Program Guidelines: NON HDL Cholesterol Desirable: <130 mg/dL Borderline High: 130-159 mg/dL High: 160-189 mg/dL Very High: > or = 190 mg/dL Cholesterol.total/Chol esterol in HDL mass ratio 2.1 {ratio} ratio [facility] Comment on above: Female Cholesterol/HDL Ratio: Average risk: 4.4 1/2 average risk: 3.3 2 x average risk: 7.1 Triglyceride mass conc 82 mg/dL 30 - 150 mg/dL [facility] Comment on above: National Cholesterol Education Program Guidelines: Triglyceride Normal: <150 mg/dL Borderline High: 150-199 mg/dL High: 200-499 mg/dL Very High: greater than or equal to 500 mg/dL Otheron 03-22-2019 MRI brain: 1. No acu te intracranial process. No acute intracranial hemorrhage, mass, extraaxial fluid collection, or acute infarction. 2. Very mild scattered foci of white matter T2 hyperintensity are nonspecific although likely due to chronic microangiopathic change. MRI cervical spine: 1. No acute fracture. 2. Spinal canal stenosis at C5-6 and C6-7 due to posterior disc osteophyte complexes that indent the ventral aspect of the spinal cord asymmetrically greater along the right ventral aspect without spinal cord signal abnormality. There is very mild spinal canal stenosis at C4-5. 3. Moderate neural foraminal stenosis occurring on the right at C4-5 and bilaterally right greater than left at C6-7. BONIFACIO/jethro Workstation ID: [id number] [facility] Interface, Rad In Fu ji Speechq - 03/22/2019 3:05 PM EDT EXAMINATION: MR BRAIN WITHOUT CONTRAST; MR CERVICAL SPINE WITHOUT CONTRAST HISTORY: ORDERING SYSTEM PROVIDED HISTORY: Syncope mechanical fall and left side numbness, TECHNOLOGIST PROVIDED HISTORY: Reason for exam: syncopal episode hitting right orbital area last night : bilateral hand numbness: h/a: no hx of cancer: Illness/Other Encounter Type: Unknown Additional signs and symptoms: n ORDERING SYSTEM PROVIDED DIAGNOSIS CODES: S09.90XA Closed head injury, initial encounter S00.11XA Contusion of right eyelid, initial encounter R20.2 Paresthesia COMPARISON: CT brain 03/22/2019. CT cervical spine 03/22/2019. TECHNIQUE: Multiplanar, multisequence MRI images of the brain and cervical spine were obtained without contrast including the following: Axial diffusion, axial T2, axial FLAIR, axial GRE, axial T1 sagittal T1-weighted images of the brain; sagittal T2, sagittal T1, sagittal STIR, axial space T2 and axial 2D medic images of the cervical spine. FINDINGS: MRI brain: There is a very mild degree of scattered foci of periventricular and subcortical white matter T2/FLAIR hyperintensity that are entirely nonspecific although likely due to chronic microangiopathic change. There is no abnormal susceptibility. There is no acute intracranial hemorrhage, extra-axial fluid collection, midline shift, or mass effect. There is no acute infarction. The ventricles, sulci, and cisterns are normal in size and configuration without hydrocephalus or herniation. Flow voids are seen within the major intracranial vessels, suggesting their patency. The orbits appear normal. There is mild scattered mucosal thickening in the paranasal sinuses. The bones are unremarkable. There is mild subcutaneous edema overlying the right frontal bone corresponding to a small subgaleal hematoma on the prior CT. MRI cervical spine: The cervical vertebral body heights are normal. There is straightening of the normal cervical lordosis. There is no significant spondylolisthesis. The bone marrow signal intensity is normal without evidence of marrow replacing lesion or acute fracture. The cervical spinal cord signal intensity is normal. The individual intervertebral disc space levels are as follows: C2-3: There is no significant posterior disc abnormality, spinal canal, or neuroforaminal stenosis. C3-4: There is left uncovertebral joint hypertrophy. There is no significant spinal canal stenosis. There is no significant right and there is [id number] left neural foraminal stenosis. C4-5: There is a posterior disc osteophyte complex that effaces the ventral CSF space and mildly flattens the ventral aspect of the cervical spinal cord. There is minimal bilateral neural foraminal stenosis. C5-6: There is a posterior disc osteophyte complex that asymmetrically involves the right central and subarticular zones. This indents the right ventral aspect of the cervical spinal cord without spinal cord signal abnormality. There is moderate right and mild left neural foraminal stenosis. C6-7: There is a posterior disc osteophyte complex that asymmetrically involves the right subarticular zone. There is associated asymmetric right greater left uncovertebral joint hypertrophy. There is indentation of the right ventral aspect of the cervical spinal cord without spinal cord signal abnormality. There is moderate right greater than left neural foraminal stenosis. C7-T1: There is no significant posterior disc abnormality, spinal canal, or neuroforaminal stenosis. The partially visualized neck soft tissues are unremarkable. IMPRESSION: MRI brain: 1. No acute intracranial process. No acute intracranial hemorrhage, mass, extraaxial fluid collection, or acute infarction. 2. Very mild scattered foci of white matter T2 hyperintensity are nonspecific although likely due to chronic microangiopathic change. MRI cervical spine: 1. No acute fracture. 2. Spinal canal stenosis at C5-6 and C6-7 due to posterior disc osteophyte complexes that indent the ventral aspect of the spinal cord asymmetrically greater along the right ventral aspect without spinal cord signal abnormality. There is very mild spinal canal stenosis at C4-5. 3. Moderate neural foraminal stenosis occurring on the right at C4-5 and bilaterally right greater than left at C6-7. BONIFACIO/jethro Workstation ID: [id number] [facility] EXAMINATION: MR BRAI N WITHOUT CONTRAST; MR CERVICAL SPINE WITHOUT CONTRAST HISTORY: ORDERING SYSTEM PROVIDED HISTORY: Syncope mechanical fall and left side numbness, TECHNOLOGIST PROVIDED HISTORY: Reason for exam: syncopal episode hitting right orbital area last night : bilateral hand numbness: h/a: no hx of cancer: Illness/Other Encounter Type: Unknown Additional signs and symptoms: n ORDERING SYSTEM PROVIDED DIAGNOSIS CODES: S09.90XA Closed head injury, initial encounter S00.11XA Contusion of right eyelid, initial encounter R20.2 Paresthesia COMPARISON: CT brain 03/22/2019. CT cervical spine 03/22/2019. TECHNIQUE: Multiplanar, multisequence MRI images of the brain and cervical spine were obtained without contrast including the following: Axial diffusion, axial T2, axial FLAIR, axial GRE, axial T1 sagittal T1-weighted images of the brain; sagittal T2, sagittal T1, sagittal STIR, axial space T2 and axial 2D medic images of the cervical spine. FINDINGS: MRI brain: There is a very mild degree of scattered foci of periventricular and subcortical white matter T2/FLAIR hyperintensity that are entirely nonspecific although likely due to chronic microangiopathic change. There is no abnormal susceptibility. There is no acute intracranial hemorrhage, extra-axial fluid collection, midline shift, or mass effect. There is no acute infarction. The ventricles, sulci, and cisterns are normal in size and configuration without hydrocephalus or herniation. Flow voids are seen within the major intracranial vessels, suggesting their patency. The orbits appear normal. There is mild scattered mucosal thickening in the paranasal sinuses. The bones are unremarkable. There is mild subcutaneous edema overlying the right frontal bone corresponding to a small subgaleal hematoma on the prior CT. MRI cervical spine: The cervical vertebral body heights are normal. There is straightening of the normal cervical lordosis. There is no significant spondylolisthesis. The bone marrow signal intensity is normal without evidence of marrow replacing lesion or acute fracture. The cervical spinal cord signal intensity is normal. The individual intervertebral disc space levels are as follows: C2-3: There is no significant posterior disc abnormality, spinal canal, or neuroforaminal stenosis. C3-4: There is left uncovertebral joint hypertrophy. There is no significant spinal canal stenosis. There is no significant right and there is kroa-zx-eneuxxoc left neural foraminal stenosis. C4-5: There is a posterior disc osteophyte complex that effaces the ventral CSF space and mildly flattens the ventral aspect of the cervical spinal cord. There is minimal bilateral neural foraminal stenosis. C5-6: There is a posterior disc osteophyte complex that asymmetrically involves the right central and subarticular zones. This indents the right ventral aspect of the cervical spinal cord without spinal cord signal abnormality. There is moderate right and mild left neural foraminal stenosis. C6-7: There is a posterior disc osteophyte complex that asymmetrically involves the right subarticular zone. There is associated asymmetric right greater left uncovertebral joint hypertrophy. There is indentation of the right ventral aspect of the cervical spinal cord without spinal cord signal abnormality. There is moderate right greater than left neural foraminal stenosis. C7-T1: There is no significant posterior disc abnormality, spinal canal, or neuroforaminal stenosis. The partially visualized neck soft tissues are unremarkable. [facility] Interpretation and review of laboratory results Normal [facility] POC PT/INRon 03-22-2019 INR Coag RelTime (Bld) 0.9 {INR} [facility] Interpretation and review of laboratory results Normal [facility] PT/INRon 03-22-2019 INR Coag RelTime (PPP) 1.0 {INR} [facility] Interpretation and review of laboratory results Normal [facility] Prothrombin time (PT) Coag time (PPP) 12.5 s [facility] During the induction phase of oral anticoagulation, the INR may not reflect the anticoagulation status of the patient. Therapeutic ranges for INR's are: Most clinical situations: INR 2.0-3.0 Mechanical Prosthetic Valve: INR 2.5-3.5 Critical: INR >5.0 [facility] TROPONINon 03-22-2019 Troponin I.cardiac mass conc No biomarker evidence of cardiac injury. [facility] Troponin I.cardiac mass conc ng/mL <=45 ng/L [facility] Troponin I.cardiac mass conc No biomarker evidence of cardiac injury. [facility] Troponin I.cardiac mass conc ng/mL <=45 ng/L [facility] Troponin I.cardiac mass conc Normal [facility] Troponin I.cardiac mass conc ng/mL <=45 ng/L [facility] XR Chest 1 Viewon 03-22-2019 Interface, Rad In Fu ji Speechq - 03/22/2019 5:34 PM EDT EXAMINATION: XR CHEST PA/AP HISTORY: ORDERING SYSTEM PROVIDED HISTORY: weakness, TECHNOLOGIST PROVIDED HISTORY: Reason for exam: weakness Illness/Other Cancer History: u Surgery, RadiationHistory: u Encounter Type: Initial Additional signs and symptoms: weakness ORDERING SYSTEM PROVIDED DIAGNOSIS CODES: S09.90XA Closed head injury, initial encounter S00.11XA Contusion of right eyelid, initial encounter R20.2 Paresthesia COMPARISON: None. FINDINGS: One view chest x-ray. No pneumothorax, pleural effusion or focal airspace consolidation. Heart is normal in size. Bony thorax is unremarkable. IMPRESSION: No acute cardiopulmonary process. ST/r Workstation ID: [id number] [facility] No acute cardiopulmo nary process. /r Workstation ID: [id number] [facility] EXAMINATION: XR CHES T PA/AP HISTORY: ORDERING SYSTEM PROVIDED HISTORY: weakness, TECHNOLOGIST PROVIDED HISTORY: Reason for exam: weakness Illness/Other Cancer History: u Surgery, RadiationHistory: u Encounter Type: Initial Additional signs and symptoms: weakness ORDERING SYSTEM PROVIDED DIAGNOSIS CODES: S09.90XA Closed head injury, initial encounter S00.11XA Contusion of right eyelid, initial encounter R20.2 Paresthesia COMPARISON: None. FINDINGS: One view chest x-ray. No pneumothorax, pleural effusion or focal airspace consolidation. Heart is normal in size. Bony thorax is unremarkable. [facility] CBC with Diffon 04-22-2018 Basophils Auto #/vol (Bld) 0.0 K/mcL Normal 0-0.2 [facility] Comment on above: Result Comment: BUCK Newman ETTING WITH IV Performed By: #### C BCDIF, CMET ####Unless otherwise noted, all testing performed by [address] [phone]: [id number] Director: Nikolay Irizarry M.D. Basophils/100 WBC Auto (Bld) 0.6 % Normal [facility] Comment on above: Result Comment: BUCK Newman ETTING WITH IV Performed By: #### C BCDIF, CMET ####Unless otherwise noted, all testing performed by [address] [phone]: [id number] Director: Nikolay Irizarry M.D. Eosinophils 0.0 K/mcL Normal 0-0.5 [facility] Comment on above: Result Comment: BUCK Newman ETTING WITH IV Performed By: #### C BCDIF, CMET ####Unless otherwise noted, all testing performed by [address] [phone]: [id number] Director: Nikolay Irizarry M.D. Eosinophils/100 leukocytes 0.7 % Normal [facility] Comment on above: Result Comment: BUCK Newman ETTING WITH IV Performed By: #### C BCDIF, CMET ####Unless otherwise noted, all testing performed by [address] [phone]: [id number] Director: Nikolay Irizarry M.D. Erythrocyte distribution width Auto Ratio (RBC) 13.5 % Normal 10.0-14.4 [facility] Comment on above: Result Comment: BUCK Newman ETTING WITH IV Performed By: #### C BCDIF, CMET ####Unless otherwise noted, all testing performed by [address] [phone]: [id number] Director: Nikolay Irizarry M.D. Erythrocytes (RBC) 4.70 M/mcL Normal 3.7-5.[address] [facility] Comment on above: Result Comment: BUCK Newman ETTING WITH IV Performed By: #### C BCDIF, CMET ####Unless otherwise noted, all testing performed by [address] [phone]: [id number] Director: Nikolay Irizarry M.D. Hematocrit (HCT) 41.2 % Normal 34.4-44.8 [facility] Comment on above: Result Comment: BUCK Newman ETTING WITH IV Performed By: #### C BCDIF, CMET ####Unless otherwise noted, all testing performed by [address] [phone]: [id number] Director: Nikolay Irizarry M.D. Hemoglobin mass conc (Bld) 14.3 g/dL Normal 11.6-15.4 [facility] Comment on above: Result Comment: BUCK Newman ETTING WITH IV Performed By: #### C BCDIF, CMET ####Unless otherwise noted, all testing performed by [place] [phone]: [id number] Director: Nikolay Irizarry M.D. Lymphocytes 1.0 K/mcL Normal 1.0-3.7 [facility] Comment on above: Result Comment: BUCK Newman ETTING WITH IV Performed By: #### C BCDIF, CMET ####Unless otherwise noted, all testing performed by [address] [phone]: [id number] Director: Nikolay Irizarry M.D. Lymphocytes/100 leukocytes 22.2 % Normal [facility] Comment on above: Result Comment: BUCK Newman ETTING WITH IV Performed By: #### C BCDIF, CMET ####Unless otherwise noted, all testing performed by [address] [phone]: [id number] Director: Nikolay Irizarry M.D. MCH 30.4 pg Normal 27.9-33.9 [facility] Comment on above: Result Comment: BUCK Newman ETTING WITH IV Performed By: #### C BCDIF, CMET ####Unless otherwise noted, all testing performed by [address] [phone]: [id number] Director: Nikolay Irizarry M.D. MCHC mass conc (RBC) 34.6 g/dL Normal 33.1-35.1 [facility] Comment on above: Result Comment: BUCK Newman ETTING WITH IV Performed By: #### C BCDIF, CMET ####Unless otherwise noted, all testing performed by [address] [phone]: [id number] Director: Nikolay Irizarry M.D. MCV 87.7 fL Normal 82.6-98.9 [facility] Comment on above: Result Comment: BUCK Newman ETTING WITH IV Performed By: #### C BCDIF, CMET ####Unless otherwise noted, all testing performed by [place] [phone]: [id number] Director: Nikolay Irizarry M.D. Monocytes 0.3 K/mcL Normal 0.1-0.6 [facility] Comment on above: Result Comment: BUCK Newman ETTING WITH IV Performed By: #### C BCDICherelle, CMET ####Unless otherwise noted, all testing performed by [address]8509CLIA: [id number] Director: Nikolay Irizarry M.D. Monocytes/100 leukocytes 6.2 % Normal [facility] Comment on above: Result Comment: BUCK Newman ETTING WITH IV Performed By: #### C BCDICheerlle, CMET ####Unless otherwise noted, all testing performed by [address]8509CLIA: [id number] Director: Nikolay Irizarry M.D. Neutrophils 3.2 K/mcL Normal 1.2-6.9 [facility] Comment on above: Result Comment: BUCK Newman ETTING WITH IV Performed By: #### C BCDICherelle, CMET ####Unless otherwise noted, all testing performed by [place] [phone]: [id number] Director: Nikolay Irizarry M.D. Platelet mean volume (PMV) 8.2 fL Normal 7.0-10.6 [facility] Comment on above: Result Comment: BUCK Newman ETTING WITH IV Performed By: #### C BCDIF, CMET ####Unless otherwise noted, all testing performed by [address] [phone]: [id number] Director: Nikolay Irizarry M.D. Platelets 194 K/mcL Normal 162-402 [facility] Comment on above: Result Comment: BUCK Newman ETTING WITH IV Performed By: #### C BCDIF, CMET ####Unless otherwise noted, all testing performed by [address] [phone]: [id number] Director: Nikolay Irizarry M.D. Segmented Neut % 70.3 % Normal [facility] Comment on above: Result Comment: BUCK Newman ETTING WITH IV Performed By: #### C BCDIF, CMET ####Unless otherwise noted, all testing performed by [address] [phone]: [id number] Director: Nikolay Irizarry M.D. WBC (Leukocytes) 4.6 K/mcL Normal 3.4-10.6 [facility] Comment on above: Result Comment: BUCK Newman ETTING WITH IV Performed By: #### C BCDIF, CMET ####Unless otherwise noted, all testing performed by [address] [phone]: [id number] Director: Nikolay Irizarry M.D. CT ABDO,PELVIS IV CONTRAST O Farshad 04-22-2018 CT ABDO,PELVIS IV CONTRAST ONLY Final ReportAccession No: [id number] Performed: Apr 22 2018 12:30PMExamination: CT ABDO,PELVIS IV CONTRAST ONLYCT SCAN OF THE ABDOMEN AND PELVIS WITH CONTRAST, 04/22/2018 12:30 PMCOMPARISON: None.CLINICAL HISTORY: Abdominal pain. Left flank pain since Thursday, per RN,highsuspicion for kidney stone. No hx of cancer, no surgeries.TECHNIQUE: 3 mm axial images performed through the abdomen and pelvisfollowingthe administration of 75 mL of intravenous Isovue-370. 3 mm coronal andsagittal MPR reconstructions of the abdomen and pelvis also performed.Dose reduction techniques were achieved by using automated exposurecontroland/or adjustment of mA and/or kV according to patient size and/or use ofiterative reconstruction technique.ABDOMINAL CT SCAN FINDINGS: Lung bases are clear. Visualized heart isnormalsize without evidence of pericardial effusion. Small cyst in the inferioraspect of the right hepatic lobe measuring 1 cm with Hounsfield unitmeasurement of 6. Some small low-attenuation lesions seen in the right andsingle lesion seen in the left hepatic lobe are too small to fullycharacterizebut likely correspond to additional small cysts or hemangiomas.Nonobstructing stone in the left superior renal pole measuring 6 mm. Nohydroureteronephrosis identified. Remaining solid organs and gallbladderareunremarkable in appearance.PELVIC CT FINDINGS: Some physiologic free fluid in the cul-de-sac. Smallrightovarian follicular cyst measuring 1.8 cm. Partial contrast-filled urinarybladder is unremarkable. No bowel obstruction. Moderate amount of fecalmatterin the colon. The appendix is normal (image are 30, series 4). No acuteosseousabnormality.IMP RESSION:1. No acute abnormality of the abdomen and pelvis identified.2. Nonobstructing stone in the left superior renal pole measuring 6 mm. Nohydroureteronephrosis.3. Small cyst in the inferior aspect the right hepatic lobe. A few smallerlow-attenuation hepatic lesions are too small to fully characterize butlikelycorrespond to additional small cysts or hemangiomas.4. Moderate amount of fecal matter in the colon. No bowel obstruction. Theappendix is normal.5. Small right ovarian follicular cyst measuring 1.8 cm. Mild collectionofphysiologic free fluid in cul-de-sac.Interpreting Physician: DENIZ DELGADO M.D.Trans: mad : cc: Normal [facility] Comprehensive Metabolic Pane roberto carlos 04-22-2018 Alanine aminotransferase (ALT) 25 U/L Normal 14-65 [facility] Comment on above: Result Comment: BUCK Trent ETTING WITH IVThis test result might be falsely depressed or falsely elevated onsamples drawn from patients taking Sulfasalazine and Sulfapyridine.Venipuncture should occur prior to taking either of these drugs. Performed By: #### C BCDIF, CMET ####Unless otherwise noted, all testing performed by [address] [phone]: [id number] Director: Nikolay Irizarry M.D. Albumin 4.4 g/dL Normal 3.2-5.2 [facility] Comment on above: Result Comment: BUCK Trent ETTING WITH IV Performed By: #### C BCDIF, CMET ####Unless otherwise noted, all testing performed by [address] [phone]: [id number] Director: Nikolay Irizarry M.D. Alkaline phosphatase (ALP) 39 U/L Low 40-140 [facility] Comment on above: Result Comment: BUCK Trent ETTING WITH IV Performed By: #### C BCDIF, CMET ####Unless otherwise noted, all testing performed by [address] [phone]: [id number] Director: Nikolay Irizarry M.D. Aspartate aminotransferase (AST) 22 U/L Normal 0-45 [facility] Comment on above: Result Comment: BUCK Trent ETTING WITH IVThis test result might be falsely depressed or falsely elevated onsamples drawn from patients taking Sulfasalazine and Sulfapyridine.Venipuncture should occur prior to taking either of these drugs. Performed By: #### C BCDIF, CMET ####Unless otherwise noted, all testing performed by [address] [phone]: [id number] Director: Nikolay Irizarry M.D. Bilirubin (total) 0.9 mg/dL Normal 0.3-1.2 [facility] Comment on above: Result Comment: BUCK Trent ETTING WITH IV Performed By: #### C BCDIF, CMET ####Unless otherwise noted, all testing performed by [address] [phone]: [id number] Director: Nikolay Irizarry M.D. Calcium 9.3 mg/dL Normal 8.4-10.2 [facility] Comment on above: Result Comment: BUCK Trent ETTING WITH IV Performed By: #### C BCDIF, CMET ####Unless otherwise noted, all testing performed by [address] [phone]: [id number] Director: Nikolay Iriazrry M.D. Chloride 104 mmol/L Normal 98-108 [facility] Comment on above: Result Comment: BUCK Trent ETTING WITH IV Performed By: #### C BCDIF, CMET ####Unless otherwise noted, all testing performed by [address] [phone]: [id number] Director: Nikolay Irizarry M.D. CO2 25 mmol/L Normal 21-32 [facility] Comment on above: Result Comment: BUCK Newman ETTING WITH IV Performed By: #### C BCDIF, CMET ####Unless otherwise noted, all testing performed by [address], [place] [phone]: [id number] Director: Nikolay Irizarry M.D. Creatinine 0.82 mg/dL Normal 0.40-1.10 [facility] Comment on above: Result Comment: RN G ETTING WITH IV Performed By: #### C ELLEN, CMET ####Unless otherwise noted, all testing performed by [address] [phone]: [id number] Director: Nikolay Irizarry M.D. eGFR (black) mL/min/{1.73_m2} Normal [facility] Comment on above: Result Comment: RN G ETTING WITH IVAfrican Citizen Of [place] GFR Calc Performed By: #### C ELLEN, CMET ####Unless otherwise noted, all testing performed by [address] [phone]: [id number] Director: Nikolay Irizarry M.D. eGFR (non-black) mL/min/{1.73_m2} Normal [facility] Comment on above: Result Comment: RN Trent ETTING WITH IVNon- GFR CalceGFR is an estimated Glomerular Filtration Rate based on the valueof the patient's serum creatinine. In outpatients, eGFR should be usedas a helpful tool in screening for CKD. In inpatients or patients withacute renal failure, eGFR represents the GFR at the moment of the drawand should be used with caution. Performed By: #### C ELLEN, CMET ####Unless otherwise noted, all testing performed by [address] [phone]: [id number] Director: Nikolay Irizarry M.D. Glucose mass conc 81 mg/dL Normal 70-99 [facility] Comment on above: Result Comment: BUCK Trent ETTING WITH IVThis test result might be falsely depressed or falsely elevated onsamples drawn from patients taking Sulfasalazine and Sulfapyridine.Venipuncture should occur prior to taking either of these drugs. Performed By: #### C BCDIF, CMET ####Unless otherwise noted, all testing performed by [address] [phone]: [id number] Director: Nikolay Irizarry M.D. Potassium molar conc 4.1 mmol/L Normal 3.5-5.1 [facility] Comment on above: Result Comment: BUCK Newman ETTING WITH IV Performed By: #### C BCDIF, CMET ####Unless otherwise noted, all testing performed by [address] [phone]: [id number] Director: Nikolay Irizarry M.D. Protein 7.9 g/dL Normal 6.0-8.0 [facility] Comment on above: Result Comment: BUCK Newman ETTING WITH IV Performed By: #### C BCDIF, CMET ####Unless otherwise noted, all testing performed by [address] [phone]: [id number] Director: Nikolay Irizarry M.D. Sodium 136 mmol/L Normal 135-145 [facility] Comment on above: Result Comment: BUCK Trent ETTING WITH IV Performed By: #### C BCDIF, CMET ####Unless otherwise noted, all testing performed by [address] [phone]: [id number] Director: Nikolay Irizarry M.D. Urea nitrogen 10 mg/dL Normal 8-25 [facility] Comment on above: Result Comment: RN G ETTING WITH IV Performed By: #### C BCSILVINA, CMET ####Unless otherwise noted, all testing performed by [address] [phone]: [id number] Director: Nikolay Irizarry M.D. Test,Urine Qualon 04-22-2018 HCG.beta subunit ( test) Ql (U) Negative Normal Negative [facility] Comment on above: Result Comment: Rapi d test procedural control acceptable.If a negative result is obtained but is suspected, hCG levelsmay be too low or urine may be too dilute for detection. Another specimenshould be collected after 48-72 hours and tested. If waiting 48 hours isnot medically advisable, the test result should be confirmed with a moresensitive quantitative serum hCG test. Performed By: #### P REGUR, UA ####Unless otherwise noted, all testing performed by [address] [phone]: [id number] Director: Nikolay Irizarry M.D. Urinalysis, Routineon 2017 Bilirubin,Urine Negative Normal NEG;NEGATI VE [facility] Comment on above: Performed By: #### P REGUR, UA ####Unless otherwise noted, all testing performed by [address] [phone]: [id number] Director: Nikolay Irizarry M.D. Blood,Urine Negative Normal NEG;NEGATI VE [facility] Comment on above: Performed By: #### P REGUR, UA ####Unless otherwise noted, all testing performed by [facility] [id number]: [id number] Director: Nikolay Irizarry M.D. Ketone,Urine Negative Normal NEG;NEGATI VE [facility] Comment on above: Performed By: #### P REGUR, UA ####Unless otherwise noted, all testing performed by [address] [id number]: [id number] Director: Nikolay Irizarry M.D. Leuk.Esterase,Urine Negative Normal Negative [facility] Comment on above: Performed By: #### P REGUR, UA ####Unless otherwise noted, all testing performed by [address]CLIA: [id number] Director: Nikolay Irizarry M.D. Nitrite,Urine Negative Normal NEG;NEGATI VE [facility] Comment on above: Performed By: #### P REGUR, UA ####Unless otherwise noted, all testing performed by [address] [id number]: [id number] Director: Nikolay Irizarry M.D. Protein,Urine Negative Normal NEG;NEGATI VE [facility] Comment on above: Performed By: #### P REGUR, UA ####Unless otherwise noted, all testing performed by [address]CLIA: [id number] Director: Nikolay Irizarry M.D. Specific [place],Urine 1.028 Normal 1.003 -1.02 9 [facility] Comment on above: Performed By: #### P REGUR, UA ####Unless otherwise noted, all testing performed by [address] [id number]: [id number] Director: Nikolay Irizarry M.D. Squamous Epithelial 9 /HPF Normal 0-40 [facility] Comment on above: Performed By: #### P REGUR, UA ####Unless otherwise noted, all testing performed by [address] [id number]: [id number] Director: Nikolay Irizarry M.D. Urine, character Hazy Normal [facility] Comment on above: Performed By: #### P REGUR, UA ####Unless otherwise noted, all testing performed by [place] [id number]: [id number] Director: Nikolay Irizarry M.D. Urine, color Yellow Normal [facility] Comment on above: Performed By: #### P REGUR, UA ####Unless otherwise noted, all testing performed by [address] [id number]: [id number] Director: Nikolay Irizarry M.D. Urine, erythrocytes in sediment by area 1 /[HPF] Normal 0-5 [facility] Comment on above: Performed By: #### P REGUR, UA ####Unless otherwise noted, all testing performed by [address] [id number]: [id number] Director: Nikolay Irizarry M.D. Urine, glucose presence Negative Normal NEG;NEGATI VE [facility] Comment on above: Performed By: #### P REGUR, UA ####Unless otherwise noted, all testing performed by [address] [id number]: [id number] Director: Nikolay Irizarry M.D. Urine, leukocytes in sedmiment 2 /[HPF] Normal 0-5 [facility] Comment on above: Performed By: #### P REGUR, UA ####Unless otherwise noted, all testing performed by [address] [phone]: [id number] Director: Nikolay Irizarry M.D. Urine, pH 5.0 [pH] Normal 4.5-8.0 [facility] Comment on above: Performed By: #### P REGUR, UA ####Unless otherwise noted, all testing performed by [address] [id number]: [id number] Director: Nikolay Irizarry M.D. Urobilinogen,Urine < 2.0 Normal <[address] [facility] Comment on above: Performed By: #### P REGUR, UA ####Unless otherwise noted, all testing performed by [address] [id number]: [id number] Director: Nikolay Irizarry M.D. Operation-Procedureon 2016 Operation-Procedure [address] [id number] DINERO [id number] 1982DATE 06/19/2017OPERATIVE REPORT / PROCEDURE NOTESURGEON MARIE RIZOREOPERATIVE DIAGNOSESCondylomata acuminatum.POSTOPERATIVE DIAGNOSESCondylomata acuminatum.PROCEDURECO2 ablation of condyloma acuminatum.FINDINGSCondylom a in bilateral vulva, perineal, and perianal area.ANESTHESIAG. LMA.SPECIMENBiopsy of condyloma.EBL5 mL.CONDITIONGood.PROCEDURE DETAILSAfter general anesthesia was obtained successfully, timeout was verified bythe surgical team. The patient was prepped and draped in the dorsal lithotomyposition with Ren stirrups. Wet blue towels were draped around the surgicalsite. Biopsy specimen was obtained from the left vulvar condyloma. Thecarbon dioxide laser was then set to 10 guevara and the lesions were ablated.Excellent hemostasis was noted and Silvadenecream was applied to the treated areas. The patient was taken to PACU instable condition.NELIA RIZO 06/24/2017 13:35 [id number] 06/24/2017 14:08 ESC/MODLElectronically Signed By Cristine Andrew M.D. on 02 Jul 2017 13:09:10 GMT Normal [facility] HCG, Qualitativeon 7 HCG, Qualitative Negative Normal [facility] Comment on above: Result Comment: Nega tive: The result is less than or equal to 5 mIU/mL of HCG. Performed By: #### H CGQL ####Unless otherwise noted, all testing performed by [place] [address] [address] [place], [place] [phone]: [id number] Director: Nikolay Irizarry M.D. SURGon 06-19-2017 BMI (Body Mass Index) Name: DEVYN NARANJO MResubmission due to incomplete transmission of the original reportSource Vulvar biopsy, Condyloma Clinical History Accumulata Condyloma Diagnosis Condyloma acuminatum. PAGE/danette Gross Description The specimen received in formalin is a fragment which is white-cano measuring 0.5 x 0.3 x 0.2 cm. Bisected. Totally submitted in one cassette. DS;lat (JSF/lt) Electronically Signed By Nikolay Irizarry MD , Pathologist (Case signed 06/23/2017) Normal [facility] Type and Screenon 06-19-2017 Type and Screen Negative Normal [facility] Comment on above: Performed By: #### T YPSCR ####Unless otherwise noted, all testing performed by [place] [address], [place] [id number]: [id number] Director: Nikolay Irizarry M.D. Vital Signs Date Time Vital Sign Value Performing Clinician Facility 12-11-2023 15:22-0500 Body height 165.1 cm Melody Fuentes MD Work Phone: [facility] 12-11-2023 15:22-0500 Body mass index (BMI) [Ratio] 26.13 kg/m2 Melody Fuentes MD Work Phone: [facility] 12-11-2023 15:22-0500 Body weight 71.22 kg Melody Fuentes MD Work Phone: [facility] 12-11-2023 15:22-0500 Diastolic blood pressure 87 mm[Hg] Melody Fuentes MD Work Phone: [facility] 12-11-2023 15:22-0500 Heart rate 54 /min Melody Fuentes MD Work Phone: [facility] 12-11-2023 15:22-0500 Systolic blood pressure 146 mm[Hg] Melody Fuentes MD Work Phone: [facility] 12-10-2023 08:44-0500 Body height 165.1 cm [facility] 12-10-2023 08:44-0500 Body mass index (BMI) [Ratio] 26.16 kg/m2 Joint [facility] 12-10-2023 08:44-0500 Body weight 71.31 kg Joint [facility] 12-10-2023 08:44-0500 Diastolic blood pressure 68 mm[Hg] [facility] 02-15-2024 08:44-0500 Heart rate 48 /min [facility] 12-10-2023 08:44-0500 SaO2% (BldA) [Mass fraction] 98 % [facility] 12-10-2023 08:44-0500 Systolic blood pressure 128 mm[Hg] [facility] 09-15-2023 13:28-0500 Body height 165.[address] Nupur Garcia Work Phone: [facility] 09-15-2023 13:28-0500 Body mass index (BMI) [Ratio] 25.2 kg/m2 Dr. Nupur Garcia Work Phone: [facility] 09-15-2023 13:28-0500 Body temperature 97.2 [degF] Dr. Nupur Garcia Work Phone: [facility] 09-15-2023 13:28-0500 Body weight 68.[address] Nupur Garcia Work Phone: [facility] 09-15-2023 13:28-0500 Diastolic blood pressure 83 mm[Hg] Dr. Nupur Garcia Work Phone: [facility] 09-15-2023 13:28-0500 Heart rate 49 /min Dr. Nupur Garcia Work Phone: [facility] 09-15-2023 13:28-0500 Respiratory rate 20 /min Dr. Nupur Garcia Work Phone: [facility] 09-15-2023 13:28-0500 SaO2% (BldA) [Mass fraction] 100 % Dr. Nupur Garcia Work Phone: [facility] 09-15-2023 13:28-0500 Systolic blood pressure 135 mm[Hg] Dr. Nupur Garcia Work Phone: [facility] 08-06-2023 15:48-0400 Body height 165.[address] Nupur Garcia Work Phone: [facility] 08-06-2023 15:48-0400 Body mass index (BMI) [Ratio] 25.1 kg/m2 Dr. Nupur Garcia Work Phone: [facility] 08-06-2023 15:48-0400 Body weight 68.[address] Nupur Garcia Work Phone: [facility] 08-06-2023 15:48-0400 Diastolic blood pressure 68 mm[Hg] Dr. uNpur Garcia Work Phone: [facility] 08-06-2023 15:48-0400 Systolic blood pressure 122 mm[Hg] Dr. Nupur Garcia Work Phone: [facility] 07-28-2023 19:51-0400 Diastolic blood pressure 85 mm[Hg] [facility] 07-28-2023 19:51-0400 Heart rate 54 /min [facility] 07-28-2023 19:51-0400 Respiratory rate 16 /min [facility] 07-28-2023 19:51-0400 SaO2% (BldA) [Mass fraction] 97 % [facility] 07-28-2023 19:51-0400 Systolic blood pressure 131 mm[Hg] [facility] 07-28-2023 17:48-0400 Body height 165.[address] [facility] 07-28-2023 17:48-0400 Body mass index (BMI) [Ratio] 25.4 kg/m2 [facility] 07-28-2023 17:48-0400 Body temperature 97.4 [degF] [facility] 07-28-2023 17:48-0400 Body weight 69.[address] [facility] 06-02-2023 10:45-0400 Diastolic blood pressure 62 mm[Hg] [facility] 06-02-2023 10:45-0400 Heart rate 72 /min [facility] 06-02-2023 10:45-0400 Respiratory rate 18 /min [facility] 06-02-2023 10:45-0400 Systolic blood pressure 158 mm[Hg] [facility] 06-02-2023 09:11-0400 Body height 165.[address] [facility] 06-02-2023 09:11-0400 Body mass index (BMI) [Ratio] 25 kg/m2 [facility] 06-02-2023 09:11-0400 Body temperature 96.6 [degF] [facility] 06-02-2023 09:11-0400 Body weight 68.[address] [facility] 06-02-2023 09:11-0400 SaO2% (BldA) [Mass fraction] 98 % [facility] 03-27-2023 14:26-0400 Diastolic blood pressure 75 mm[Hg] Matty Phoenix MD Work Phone: [facility] 03-27-2023 14:26-0400 Heart rate 42 /min Matty Phoenix MD Work Phone: [facility] 03-27-2023 14:26-0400 Respiratory rate 16 /min Matty Phoenix MD Work Phone: [facility] 03-27-2023 14:26-0400 SaO2% (BldA) [Mass fraction] 98 % Matty Phoenix MD Work Phone: [facility] 03-27-2023 14:26-0400 Systolic blood pressure 123 mm[Hg] Matty Phoenix MD Work Phone: [facility] 03-27-2023 14:04-0400 Body temperature 97 [degF] Matty Phoenix MD Work Phone: [facility] 03-27-2023 12:16-0400 Body height 165.1 cm Matty Phoenix MD Work Phone: [facility] 03-27-2023 12:16-0400 Body mass index (BMI) [Ratio] 25.79 kg/m2 Matty Phoenix MD Work Phone: [facility] 03-27-2023 12:16-0400 Body weight 70.31 kg Matty Phoenix MD Work Phone: [facility] 02-27-2023 09:00-0400 Body mass index (BMI) [Ratio] 25.79 kg/m2 [facility] 02-27-2023 09:00-0400 Body weight 70.31 kg [facility] 02-19-2023 13:28-0400 Body height 165.1 cm Matty Phoenix MD Work Phone: [facility] 02-19-2023 13:28-0400 Body mass index (BMI) [Ratio] 26.13 kg/m2 Matty Phoenix MD Work Phone: [facility] 02-19-2023 13:28-0400 Body temperature 98.6 [degF] aMtty Phoenix MD Work Phone: [facility] 02-19-2023 13:28-0400 Body weight 71.22 kg Matty Phoenix MD Work Phone: [facility] 02-19-2023 13:28-0400 Diastolic blood pressure 78 mm[Hg] Matty Phoenix MD Work Phone: [facility] 02-19-2023 13:28-0400 Heart rate 67 /min Matty Phoenix MD Work Phone: [facility] 02-19-2023 13:28-0400 Systolic blood pressure 124 mm[Hg] Matty Phoenix MD Work Phone: [facility] 08-21-2022 13:24-0400 Diastolic blood pressure 40 mm[Hg] Dr. Fede Ellison Work Phone: [facility] Work Phone: 08-21-2022 13:24-0400 Heart rate 62 /min Dr. Fede Ellison Work Phone: [facility] Work Phone: 08-21-2022 13:24-0400 Respiratory rate 16 /min Dr. Fede Ellison Work Phone: [facility] Work Phone: 08-21-2022 13:24-0400 SaO2% (BldA) [Mass fraction] 95 % Dr. Fdee Ellison Work Phone: [facility] Work Phone: 08-21-2022 13:24-0400 Systolic blood pressure 129 mm[Hg] Dr. Fede Ellison Work Phone: [facility] Work Phone: 08-21-2022 13:02-0400 Body height 165.[address] Fede Ellison Work Phone: [facility] Work Phone: 08-21-2022 13:02-0400 Body mass index (BMI) [Ratio] 25 kg/m2 Dr. Fede Ellison Work Phone: [facility] Work Phone: 08-21-2022 13:02-0400 Body temperature 98.2 [degF] Dr. Fede Ellison Work Phone: [facility] Work Phone: 08-21-2022 13:02-0400 Body weight 68.[address] Fede Ellison Work Phone: [facility] Work Phone: 07-23-2022 13:50-0400 Body height 165.[address] Fede Ellison Work Phone: [facility] Work Phone: 07-23-2022 13:50-0400 Body mass index (BMI) [Ratio] 25.1 kg/m2 Dr. Fede Ellison Work Phone: [facility] Work Phone: 07-23-2022 13:50-0400 Body weight 68.[address] Fede Ellison Work Phone: [facility] Work Phone: 07-23-2022 13:50-0400 Diastolic blood pressure 81 mm[Hg] Dr. Fede Ellison Work Phone: [facility] Work Phone: 07-23-2022 13:50-0400 Heart rate 49 /min Dr. Fede Ellison Work Phone: [facility] Work Phone: 07-23-2022 13:50-0400 Respiratory rate 16 /min Dr. Fede Ellison Work Phone: [facility] Work Phone: 07-23-2022 13:50-0400 Systolic blood pressure 121 mm[Hg] Dr. Fede Ellison Work Phone: [facility] Work Phone: 07-09-2022 14:39-0400 Body mass index (BMI) [Ratio] 25.6 kg/m2 Dr. Fede Ellison Work Phone: [facility] Work Phone: 07-09-2022 14:39-0400 Body weight 69.[address] Fede Ellison Work Phone: [facility] Work Phone: 07-09-2022 14:39-0400 Diastolic blood pressure 76 mm[Hg] Dr. Fede Ellison Work Phone: [facility] Work Phone: 07-09-2022 14:39-0400 Heart rate 41 /min Dr. Fede Ellison Work Phone: [facility] Work Phone: 07-09-2022 14:39-0400 Respiratory rate 16 /min Dr. Fede Ellison Work Phone: [facility] Work Phone: 07-09-2022 14:39-0400 Systolic blood pressure 118 mm[Hg] Dr. Fede Ellison Work Phone: [facility] Work Phone: 01-16-2022 16:11-0400 Body mass index (BMI) [Ratio] 25.02 kg/m2 Osmar Garcia MD Work Phone: [facility] 01-16-2022 16:11-0400 Body temperature 97.39 [degF] Osmar Garcia MD Work Phone: [facility] 01-16-2022 16:11-0400 Body weight 70.31 kg Osmar Garcia MD Work Phone: [facility] 01-16-2022 16:11-0400 Diastolic blood pressure 93 mm[Hg] Osmar Garcia MD Work Phone: [facility] 01-16-2022 16:11-0400 Heart rate 45 /min Osmar Garcia MD Work Phone: [facility] 01-16-2022 16:11-0400 Systolic blood pressure 149 mm[Hg] Osmar Garcia MD Work Phone: [facility] 12-31-2021 08:04-0500 Body height 165.1 cm Tammy Silva OPERATIONS SPECIALIST Work Phone: [facility] 12-31-2021 08:04-0500 Body mass index (BMI) [Ratio] 25.96 kg/m2 Tammy Silva CNP Work Phone: [facility] 12-31-2021 08:04-0500 Body weight 70.76 kg Tammy Silva CNP Work Phone: [facility] 11-14-2021 15:09-0500 Diastolic blood pressure 73 mm[Hg] Clementenicole Landis MD Work Phone: [facility] 11-14-2021 15:09-0500 Heart rate 47 /min Clemente Boby SCHUSTER Work Phone: [facility] 11-14-2021 15:09-0500 Systolic blood pressure 114 mm[Hg] Clemente Boby SCHUSTER Work Phone: [facility] 11-14-2021 15:08-0500 Body mass index (BMI) [Ratio] 25.99 kg/m2 Clementenicole Landis MD Work Phone: [facility] 11-14-2021 15:08-0500 Body weight 70.85 kg Clementenicole Landis MD Work Phone: [facility] 10-28-2021 15:13-0500 Diastolic blood pressure 83 mm[Hg] Clemente Boby SCHUSTER Work Phone: [facility] 10-28-2021 15:13-0500 Heart rate 49 /min Clemente Boby SCHUSTER Work Phone: [facility] 10-28-2021 15:13-0500 Systolic blood pressure 145 mm[Hg] Clemente Boby SCHUSTER Work Phone: [facility] 10-28-2021 15:11-0500 Body mass index (BMI) [Ratio] 25.96 kg/m2 Clemente Boby SCHUSTER Work Phone: [facility] 10-28-2021 15:11-0500 Body weight 70.76 kg Clemente Boby SCHUSTER Work Phone: [facility] 10-17-2021 13:38-0500 Body mass index (BMI) [Ratio] 25.02 kg/m2 Osmar Garcia MD Work Phone: [facility] 10-17-2021 13:38-0500 Body temperature 97.81 [degF] Osmar Garcia MD Work Phone: [facility] 10-17-2021 13:38-0500 Body weight 70.31 kg Osmar Garcia MD Work Phone: [facility] 10-17-2021 13:38-0500 Diastolic blood pressure 91 mm[Hg] Osmar Garcia MD Work Phone: [facility] 10-17-2021 13:38-0500 Heart rate 56 /min [facility]smar Garcia MD [facility] 10-17-2021 13:38-0500 Systolic blood pressure 155 mm[Hg] Osmar Garcia MD Work Phone: [facility] 09-03-2021 13:49-0500 Diastolic blood pressure 111 mm[Hg] Clementenicole Landis MD Work Phone: [facility] 09-03-2021 13:49-0500 Heart rate 52 /min Clementenicole Landis MD Work Phone: [facility] 09-03-2021 13:49-0500 Systolic blood pressure 185 mm[Hg] Clemente Boby SCHUSTER Work Phone: [facility] 09-03-2021 13:48-0500 Body mass index (BMI) [Ratio] 25.46 kg/m2 Clemente Boby SCHUSTER Work Phone: [facility] 09-03-2021 13:48-0500 Body weight 69.4 kg Clemente Boby SCHUSTER Work Phone: [facility] 05-07-2021 14:27-0400 Body height 167.6 cm Matty Donaldson MD Work Phone: [facility] 05-07-2021 14:27-0400 Body mass index (BMI) [Ratio] 24.53 kg/m2 Matty Donaldson MD Work Phone: [facility] 05-07-2021 14:27-0400 Body weight 68.95 kg Matty Donaldson MD Work Phone: [facility] 05-07-2021 14:27-0400 Diastolic blood pressure 62 mm[Hg] Matty Donaldson MD Work Phone: [facility] 05-07-2021 14:27-0400 Systolic blood pressure 108 mm[Hg] Matty Donaldson MD Work Phone: [facility] 01-17-2021 15:25-0400 BMI (Body Mass Index) 24.86 kg/m2 Matty Mendoza [facility] 01-17-2021 15:25-0400 Body Temperature 98.29 [degF] [facility] 01-17-2021 15:25-0400 Body weight 69.85 kg [facility] 01-17-2021 15:25-0400 BP Diastolic 78 mm[Hg] Matty Donaldson [facility] 01-17-2021 15:25-0400 BP Systolic 110 mm[Hg] [facility] 01-17-[facility]21 15:25-0400 Height 167.6 cm Matty [facility] 01-01-2021 12:00-0500 BP Diastolic 76 mm[Hg] [facility] 01-01-2021 12:00-0500 BP Systolic 162 mm[Hg] [facility] 01-01-2021 12:00-0500 Pulse (Heart Rate) 44 /min [facility] 01-01-2021 12:00-0500 Pulse Oximetry 100 % [facility] 01-01-2021 12:00-0500 Respiratory Rate 16 /min [facility] 01-01-2021 11:27-0500 Body Temperature 98.4 [degF] [facility] 01-01-2021 08:27-0500 BMI (Body Mass Index) 25.34 kg/m2 [facility] 01-01-2021 08:27-0500 Body weight 71.22 kg [facility] 01-01-2021 08:27-0500 Height 167.6 cm [facility] 12-10-2020 14:32-0500 BMI (Body Mass Index) 25.34 kg/m2 [facility] 12-10-2020 14:32-0500 Body Temperature 98.01 [degF[facility] 12-10-[facility] 14:32-0500 Body weight 71.22 kg [facility] 12-10-2020 14:32-0500 BP Diastolic 87 mm[Hg] [facility] 12-10-2020 14:32-0500 BP Systolic 152 mm[Hg] [facility] 12-10-2020 14:32-0500 Pulse (Heart Rate) 50 /min [facility] 12-03-2020 10:48-0500 BP Diastolic 87 mm[Hg] Enedina Troncoso [facility] 12-03-2020 10:48-0500 BP Systolic 143 mm[Hg] Enedina Troncoso [facility] 12-03-2020 10:48-0500 Pulse (Heart Rate) 40 /min Enedina Troncoso [facility] 12-03-2020 10:48-0500 Pulse Oximetry 98 % Enedina Troncoso [facility] 12-03-2020 10:48-0500 Respiratory Rate 16 /min Enedina Troncoso [facility] 12-03-2020 08:12-0500 BMI (Body Mass Index) 25.79 kg/m2 Enedina Troncoso [facility] 12-03-2020 08:12-0500 Body Temperature 98.2 [degF] Enedina Troncoso [facility] 12-03-2020 08:12-0500 Body weight 70.31 kg Enedina [facility] 12-03-2020 08:12-0500 Height 165.1 cm [facility] 11-15-2019 16:00-0500 BMI (Body Mass Index) 25.5 kg/m2 [facility] 11-15-2019 16:00-0500 Body Temperature 98.6 [degF] [facility] 11-15-2019 16:00-0500 Body weight 71.67 kg [facility] 11-15-2019 16:00-0500 BP Diastolic 56 mm[Hg] [facility] 11-15-2019 16:00-0500 BP Systolic 133 mm[Hg] [facility] 11-15-2019 16:00-0500 Height 167.6 cm [facility] 11-15-2019 16:00-0500 Pulse (Heart Rate) 53 /min [facility] 11-15-2019 16:00-0500 Pulse Oximetry 99 % [facility] 11-15-2019 16:00-0500 Respiratory Rate 16 /min [facility] 10-07-2019 13:48-0500 Body Temperature 97.81 [degF] Melody Fuentes [facility] 10-07-2019 13:48-0500 BP Diastolic 76 mm[Hg] Melody Fuentes [facility] 10-07-2019 13:48-0500 BP Systolic 143 mm[Hg] Melody Gina [facility] 10-07-2019 13:48-0500 Pulse (Heart Rate) 53 /min Melody Fuentes [facility] 10-07-2019 13:48-0500 Pulse Oximetry 98 % Melody Fuentes [facility] 10-07-2019 13:48-0500 Respiratory Rate 16 /min Melody Fuentes [facility] 10-07-2019 08:54-0500 BMI (Body Mass Index) 25.68 kg/m2 Melody Fuentes [facility] 10-07-2019 08:54-0500 Body weight 70 kg Melody Fuentes [facility] 10-07-2019 08:54-0500 Height 165.1 cm Melody Fuentes [facility] 08-08-2019 12:48-0400 BMI (Body Mass Index) 25.79 kg/m2 Tammy Silva [facility] 08-08-2019 12:48-0400 Body weight 70.31 kg Tammy Frasercock [facility] 08-08-2019 12:48-0400 Height 165.1 cm Tammy Silva [facility] 04-12-2019 15:38-0400 BMI (Body Mass Index) 25.13 kg/m2 Lalitha Iraheta [facility] 04-12-2019 15:38-0400 BP Diastolic 85 mm[Hg] Lalitha Iraheta [facility] 04-12-2019 15:38-0400 BP Systolic 150 mm[Hg] Lalitha Iraheta [facility] 04-12-2019 15:38-0400 Height 165.1 cm Lalitha Iraheta [facility] 04-12-2019 15:38-0400 Pulse (Heart Rate) 48 /min Lalitha Iraheta [facility] 04-12-2019 15:38-0400 Weight 68.49 kg Lalitha Iraheta [facility] 03-23-2019 12:06-0400 Body Temperature 98.49 [degF] [facility] [facility] 03-23-2019 12:06-0400 BP Diastolic 71 mm[Hg] [facility] 03-23-2019 12:06-0400 BP Systolic 119 mm[Hg] [facility] 03-23-2019 12:06-0400 Pulse (Heart Rate) 44 /min [facility] 03-23-2019 12:06-0400 Pulse Oximetry 98 % [facility] 03-23-2019 12:06-0400 Respiratory Rate 14 /min [facility] 03-22-2019 15:47-0400 Systolic blood pressure [facility] 03-22-2019 11:23-0400 BMI (Body Mass Index) 25.24 kg/m2 [facility] 03-22-2019 11:23-0400 Weight 68.81 kg [facility] 03-22-2019 09:59-0400 Height 165.1 cm [facility] Encounters Encounter Date Encounter Type Care Provider Facility Start: 07-13-2025 End: 07-13-2025 Patient encounter procedure Rob Segovia DO -[facility] Work Phone: Start: 07-13-2025 End: 07-13-2025 ambulatory Rob Segovia Facility:[facility] Start: 11-17-2024 End: 11-17-2024 ambulatory [facility] Facility:[facility] Start: 10-17-2024 End: 10-17-2024 ambulatory Riana Dossi Facility:[facility] Start: 09-27-2024 ambulatory Riana Dossi Facility:[facility] Start: 08-16-2024 End: 08-16-2024 [facility] Start: 08-11-2024 End: 08-11-[address] [facility] Facility:[facility] Start: 08-06-2024 End: 08-06-[address] [facility] Facility:[facility] Start: 06-03-2024 End: 06-03-2024 Postop follow up visit related to original px Melody Fuentes MD Work Phone: [facility] Comment on above: Status post total ri ght knee replacement (Primary Dx) Start: 06-03-2024 End: 06-04-2024 Refill Kalina Sommer LPN [facility] Comment on above: Status post total ri ght knee replacement (Primary Dx) Start: 04-22-2024 End: 04-22-2024 Office outpatient visit 10 minutes Melody Fuentes MD Work Phone: [facility] Comment on above: Status post total ri ght knee replacement (Primary Dx) Start: 04-22-2024 End: 04-22-2024 ambulatory NUPUR GARCIA [facility] Start: 02-12-2024 End: 02-12-2024 Postop follow up visit related to original px Melody Fuentes MD Work Phone: [facility] Comment on above: Status post total ri ght knee replacement (Primary Dx) Start: 02-12-2024 End: 02-16-2024 Refill Melody Fuentes MD Work Phone: [facility] Comment on above: Status post total ri ght knee replacement (Primary Dx) Start: 01-15-2024 End: 01-15-2024 Postop follow up visit related to original px Melody Fuentes MD Work Phone: [facility] Comment on above: Status post total ri ght knee replacement (Primary Dx) Start: 01-15-2024 End: 01-15-2024 Refill Kalina Sommer LPN [facility] Comment on above: Status post total ri ght knee replacement (Primary Dx) Start: 01-08-2024 End: 01-08-2024 Postop follow up visit related to original px Melody Fuentes MD Work Phone: [facility] Comment on above: Status post total ri ght knee replacement (Primary Dx) Start: 01-08-2024 End: 01-12-2024 ambulatory MELODY FUENTES [facility] Start: 01-06-2024 Orders Only Kalina garay LPN [facility] Comment on above: Status post total ri ght knee replacement (Primary Dx) Start: 01-04-2024 Orders Only Tammy Silva CNP Work Phone: [facility] Comment on above: S/P total knee arthr oplasty, right Start: 01-01-2024 Documentation procedure Kylah M Bisho p PLASTIC PRESS MOLDER [facility] Start: 12-28-2023 End: 12-28-2023 ambulatory [facility] Start: 12-21-2023 End: 12-21-2023 ambulatory [facility] Start: 12-11-2023 End: 12-11-2023 Office outpatient visit 15 minutes Melody Fuentes MD Work Phone: [facility] Comment on above: Osteoarthritis of ri ght knee, unspecified osteoarthritis type (Primary Dx) Start: 12-11-2023 End: 12-11-2023 ambulatory [facility] Start: 12-10-2023 End: 12-14-2023 ambulatory [facility] Start: 12-10-2023 End: 12-10-2023 Patient encounter procedure Melody Fuentes MD Work Phone: [facility] Testing Comment on above: S/P right knee arthr oscopy (Primary Dx); Knee instability, right; Osteoarthritis of right knee, unspecified osteoarthritis type; Hypertension, unspecified type Start: 12-08-2023 End: 12-12-2023 [facility] Start: 12-08-2023 End: 12-08-2023 ambulatory [place] Missy Silva OPERATIONS SPECIALIST Work Phone: [facility] Comment on above: Primary osteoarthrit is of right knee (Primary Dx) Start: 12-01-2023 End: 12-05-2023 ambulatory [facility] Start: 12-01-2023 End: 12-01-2023 ambulatory [place] Missy Silva OPERATIONS SPECIALIST Work Phone: [facility] Comment on above: Primary osteoarthrit is of right knee (Primary Dx) Start: 11-26-2023 End: 11-30-2023 ambulatory [facility] Start: 11-26-2023 End: 11-26-2023 ambulatory [place] Missy Silva OPERATIONS SPECIALIST Work Phone: [facility] Comment on above: Primary osteoarthrit is of right knee (Primary Dx) Start: 11-24-2023 End: 11-28-2023 [facility] [place] [facility] Start: 11-24-2023 End: 11-24-2023 ambulatory Tammy Silva OPERATIONS SPECIALIST Work Phone: [facility] Comment on above: Primary osteoarthrit is of right knee (Primary Dx) Start: 11-19-2023 End: 11-23-2023 ambulatory [facility] Start: 11-19-2023 End: 11-19-2023 ambulatory Tammy Anne Silva OPERATIONS SPECIALIST Work Phone: [facility] Comment on above: Osteoarthritis of ri ght knee, unspecified osteoarthritis type Start: 11-12-2023 End: 11-16-2023 ambulatory NUPUR GARCIA [facility] Start: 11-12-2023 End: 11-12-2023 Office outpatient visit 15 minutes Tammy Boltonck OPERATIONS SPECIALIST Work Phone: [facility] Comment on above: S/P right knee arthr oscopy (Primary Dx); Knee instability, right; Osteoarthritis of right knee, unspecified osteoarthritis type Start: 09-15-2023 End: 09-15-2023 Emergency department patient visit Dr. Nupur Garcia Work Phone: [facility] Work Phone: Start: 09-01-2023 End: 09-01-[address] Nupur Garcia Work Phone: [facility] Work Phone: Start: 08-06-2023 End: 08-06-[address] Nupur Garcia Work Phone: [facility] Work Phone: Start: 08-06-2023 End: 08-06-[address] Nupur Garcia Work Phone: [facility] Work Phone: Start: 08-06-2023 End: 08-06-[address] Nupur Garcia Work Phone: [facility] Work Phone: Start: 07-28-2023 End: 07-28-2023 Emergency department patient visit [facility] Work Phone: Start: 06-02-2023 End: 06-02-2023 Emergency department patient visit [facility] Work Phone: Start: 05-22-2023 End: 05-22-2023 ambulatory [facility] Work Phone: Start: 05-22-2023 End: 05-22-2023 Patient encounter procedure [facility] Start: 05-20-2023 End: 05-20-2023 Patient encounter procedure Tammy Silva [facility] Work Phone: [facility] Comment on above: S/P right knee arthr oscopy (Primary Dx); Knee instability, right Start: 04-15-2023 Telephone encounter Melani horta PA-C Work Phone: [facility] Comment on above: Results (CT) Start: 04-10-2023 End: 04-11-2023 ambulatory [facility] Start: 04-10-2023 End: 04-10-2023 Subsequent hospital visit by physician [facility] Exam Room [address] [facility] [address] Comment on above: Epigastric pain Start: 04-02-2023 End: 04-02-2023 ambulatory [facility] Start: 03-27-2023 Telephone encounter Melani horta PA-C Work Phone: [facility] Comment on above: Other Start: 03-27-2023 End: 03-27-2023 ambulatory [facility] Start: 03-27-2023 End: 03-27-2023 Subsequent hospital visit by physician Matty Phoenix MD Work Phone: [facility] Endoscopy Comment on above: Dysphagia Start: 03-17-2023 End: 03-18-2023 ambulatory [facility] Start: 03-04-2023 Orders Only Tammy Silva OPERATIONS SPECIALIST Work Phone: [facility] Start: 02-27-2023 End: 02-28-2023 ambulatory [facility] Start: 02-27-2023 End: 02-27-2023 Subsequent hospital visit by physician [facility] Exam Room [facility] Nuclear Medicine Comment on above: Epigastric pain Start: 02-23-2023 Telephone encounter Matty maurice MD Work Phone: [facility] Comment on above: Endoscopy Start: 02-19-2023 End: 02-19-2023 ambulatory MATTY PHOENIX [facility] Start: 02-19-2023 End: 02-19-2023 Office outpatient new 45 minutes Matty Phoenix MD Work Phone: [facility] Comment on above: Epigastric pain (Love juana Dx); LUQ pain; Chronic constipation; Esophageal dysphagia Start: 02-13-2023 End: 02-13-2023 ambulatory [facility] Work Phone: Start: 02-13-2023 End: 02-13-2023 Patient encounter procedure [facility], [place] Start: 02-10-2023 End: 02-10-2023 ambulatory [facility] Work Phone: Start: 02-10-2023 End: 02-10-2023 Patient encounter procedure [facility]-Outpatient Breast Imaging Start: 10-14-2022 Non-patient / Non-visit Dr. Danitza Ellison Work Phone: [facility] Start: 10-14-2022 End: 10-14-[address] Fede Ellison Work Phone: [facility] Work Phone: Start: 10-14-2022 End: 10-14-[address] Fede Ellison Work Phone: [facility]-Cardiovascular Services Start: 09-13-2022 End: 09-13-[address] Fede Ellison Work Phone: [facility] Work Phone: Start: 09-13-2022 End: 09-13-[address] Fede Ellison Work Phone: [facility] Start: 09-04-2022 End: 09-04-[address] Fede Ellison Work Phone: [facility] Work Phone: Start: 09-04-2022 End: 09-04-[address] Fede Ellison Work Phone: [facility] Start: 08-28-2022 End: 08-28-[address] Fede Ellison Work Phone: [facility] Work Phone: Start: 08-28-2022 End: 08-28-[address] Fede Ellison Work Phone: [facility] Start: 08-25-2022 Non-patient / Non-visit Dr. Danitza Ellison Work Phone: [facility] Start: 08-21-2022 Non-patient / Non-visit Dr. Danitza Ellison Work Phone: [facility] Start: 08-21-2022 End: 08-21-[address] Fede Ellison Work Phone: [facility] Work Phone: Start: 08-21-2022 End: 08-21-[address] Fede Ellison Work Phone: [facility] Start: 07-23-2022 End: 07-23-[address] Fede Ellison Work Phone: [facility] Start: 07-22-2022 End: 07-22-[address] Fede Ellison Work Phone: [facility] Work Phone: Start: 07-22-2022 End: 07-22-[address] Fede Ellison Work Phone: [facility]-Sleep Lab Start: 07-09-2022 End: 07-09-[address] Fede Ellison Work Phone: [facility] Start: 03-19-2022 End: 03-19-2022 Office outpatient visit 10 minutes Tammy Silva CNP Work Phone: [facility] Comment on above: S/P right knee arthr oscopy (Primary Dx); Knee instability, right Start: 01-16-2022 End: 01-16-2022 Office outpatient visit 15 minutes Osmar Garcia MD Work Phone: [facility] Comment on above: Essential hypertensi on (Primary Dx) Start: 12-31-2021 End: 12-31-2021 Patient encounter procedure Tammy Silva CNP Work Phone: [facility] Comment on above: S/P right knee arthr oscopy (Primary Dx) Start: 12-26-2021 End: 12-26-2021 Office outpatient new 30 minutes Yuriy Estes DO Work Phone: [facility] Comment on above: Constipation, unspec ified constipation type (Primary Dx); Irritable bowel syndrome with diarrhea Start: 11-14-2021 End: 11-14-2021 Office outpatient visit 15 minutes Clemente Landis MD Work Phone: [facility] Comment on above: Essential hypertensi on (Primary Dx); Bradycardia Start: 11-14-2021 Refill Natalya Chawla RN [facility] Comment on above: Medication Refill Start: 10-28-2021 End: 10-28-2021 Office outpatient visit 25 minutes Clemente Landis MD Work Phone: [facility] Comment on above: Bradycardia (Primary Dx); Essential hypertension; SOB (shortness of breath) on exertion Start: 10-17-2021 End: 10-17-2021 Office outpatient visit 15 minutes Osmar Garcia MD Work Phone: [facility] [place] Comment on above: Essential hypertensi on (Primary Dx) Start: 10-06-2021 Documentation procedure Clemente Landis MD Work Phone: [facility] Start: 09-12-2021 End: 09-12-2021 Orders Only Natalya Chawla RN [facility] Comment on above: Hypertension, unspec ified type (Primary Dx) Arrived Start: 09-12-2021 Orders Only Clemente Gonzalez Work Phone: [facility] Start: 09-03-2021 End: 09-03-2021 Office outpatient new 45 minutes Clemente Landis MD Work Phone: [facility] Comment on above: Bradycardia (Primary Dx); Near syncope; Essential hypertension; SOB (shortness of breath) on exertion Start: 05-07-2021 End: 05-07-2021 Postop follow up visit related to original px Matty Donaldson MD Work Phone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 Comment on above: Postoperative examin ation (Primary Dx) Start: 01-17-2021 End: 01-17-2021 Office outpatient new 30 minutes Matty Donaldson Work Phone: 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 Comment on above: Menorrhagia with reg ular cycle (Primary Dx); Dysmenorrhea; Fibroids Start: 01-01-2021 End: 01-01-2021 Subsequent hospital visit by physician Wilder Hale Work Phone: [facility] Comment on above: Generalized abdomina l pain Start: 12-17-2020 Patient encounter status Matty Donaldson MD Work Phone: [facility] Start: 12-10-2020 End: 12-10-2020 Office outpatient visit 15 minutes Osmar Garcia Work Phone: [facility] Comment on above: Gastroesophageal ref lux disease with esophagitis without hemorrhage (Primary Dx); LGI bleed Start: 12-03-2020 End: 12-03-2020 Emergency department patient visit Enedina Troncoso Work Phone: [facility] Emergency [facility] Comment on above: Acute gastritis, pre sence of bleeding unspecified, unspecified gastritis type (Primary Dx) Start: 11-15-2019 End: 11-15-2019 Office outpatient new 30 minutes Mary Resendiz Work Phone: [facility] Comment on above: Acute URI (Primary D x); Sore throat Start: 10-25-2019 End: 10-25-2019 Postop follow up visit related to original px Hilton Camarillo Work Phone: [facility] Comment on above: S/P right knee arthr oscopy (Primary Dx) Start: 10-07-2019 End: 10-07-2019 Subsequent hospital visit by physician Melody Fuentes Work Phone: [facility] Comment on above: S/P arthroscopy of r ight knee (Primary Dx); Primary osteoarthritis of right knee; Primary osteoarthritis of left knee; Primary osteoarthritis of right knee; Primary osteoarthritis of left knee Start: 08-17-2019 End: 08-17-2019 Documentation procedure Tammy Silva Work Phone: [facility] Start: 08-08-2019 End: 08-08-2019 Office outpatient visit 25 minutes Tammy Silva Work Phone: [facility] Comment on above: Primary osteoarthrit is of right knee (Primary Dx); Primary osteoarthritis of left knee Start: 08-01-2019 End: 08-01-2019 Subsequent hospital visit by physician Tammy Silva Work Phone: [facility] Comment on above: Knee pain, unspecifi ed chronicity, unspecified laterality Start: 06-08-2019 End: 06-08-2019 Patient encounter procedure Dionysios Klironomos Work Phone: [facility] Comment on above: Paresthesia Start: 06-06-2019 End: 06-06-2019 Patient encounter procedure Dionysios Klironomos Work Phone: [facility] Comment on above: Paresthesia Start: 06-01-2019 End: 06-01-2019 Patient encounter procedure Dionysios Klironomos Work Phone: [facility] Comment on above: Paresthesia Start: 05-30-2019 End: 05-30-2019 Patient encounter procedure Dionysios Klironomos Work Phone: [facility] Comment on above: Paresthesia Start: 05-25-2019 End: 05-25-2019 Patient encounter procedure Dionysios Klironomos Work Phone: [facility] Comment on above: Paresthesia Start: 05-23-2019 End: 05-23-2019 Patient encounter procedure Dionysios Klironomos Work Phone: [facility] Comment on above: Paresthesia Start: 05-13-2019 End: 05-13-2019 Patient encounter procedure Dionysios Klironomos Work Phone: [facility] Comment on above: Paresthesia Start: 05-04-2019 End: 05-04-2019 Patient encounter procedure Waqar Alcocer Work Phone: [facility] Comment on above: Paresthesia Start: 04-12-2019 End: 04-12-2019 Office outpatient new 30 minutes Lalitha Iraheta Work Phone: [facility] Comment on above: Paresthesia Start: 03-24-2019 End: 03-24-2019 Patient encounter procedure Juana Das Work Phone: [facility] Comment on above: Syncope, unspecified syncope type Start: 03-23-2019 End: 03-23-2019 Evaluation and management of inpatient Waqar Alcocer Work Phone: [facility] EEG Comment on above: Arrived Start: 03-22-2019 Patient encounter [facility] Start: 03-22-2019 End: 03-23-2019 Emergency department patient visit Shelton Weeks Work Phone: [facility] Medical Observation Comment on above: Closed head injury, initial encounter (Primary Dx); Contusion of right eyelid, initial encounter; Paresthesia Start: 04-22-2018 End: 04-22-2018 Emergency department patient visit Bg Fan Facility:[place] Start: 06-19-2017 End: 06-19-2017 Ambulatory Cristine Andrew Facility:[place] Procedures Date Procedure Procedure Detail Performing Clinician Start: 07-13-2025 Antibody to centromere measurement Dr. Steven Garcia MD Work Phone: Comment on above: Test not performed Start: 07-13-2025 Antibody to extractable nuclear antigen measurement Dr. Nupur Garcia MD Work Phone: Comment on above: Test not performed Start: 07-13-2025 Antibody to CATHY-[address] Nupur waters MD Work Phone: Comment on above: Test not performed Start: 07-13-[address] Nupur sharpe MD Work Phone: Comment on above: Test not performed Start: 07-13-2025 DECK OFFICER antibody measurement Dr. Nupur sharpe MD Work Phone: Comment on above: Test not performed Start: 12-10-2023 Basic metabolic panel calcium total Melody Fuentes MD Work Phone: Start: 12-10-2023 Cul prsmptv pthgnc organism scrn w/colony estimj Melody Fuentes MD Work Phone: Start: 08-06-2023 X-ray of lumbosacral spine Dr. Nupur xie Work Phone: Start: 07-28-2023 CT of abdomen and pelvis without contrast Start: 05-21-2023 Arthrocentesis aspir&/inj major jt/bursa w/o us Tammy Missy Silva OPERATIONS SPECIALIST Work Phone: Start: 02-27-2023 Hepatobil syst imag inc gb w/pharma intervenj Britney Montes PA-C Work Phone: Start: 02-13-2023 Diagnostic radiography of abdomen Start: 02-10-2023 End: 02-10-2023 Screening mammography Start: 09-13-[address] Fede Ellison Work Phone: Start: 09-04-[address] Fede Ellison Work Phone: Start: 08-21-2022 CT angiography of coronary arteries Dr. Fede Ellison Work Phone: Start: 12-31-2021 Arthrocentesis aspir&/inj major jt/bursa w/o us Tammy Silva OPERATIONS SPECIALIST Work Phone: Start: 09-12-2021 Basic metabolic panel calcium total Clemente Boby SCHUSTER Work Phone: Start: 01-01-2021 Colonoscopy Osmar Garcia Work Phone: Start: 01-01-2021 Esophagogastroduodenoscopy transoral diagnostic Osmar Garcia Work Phone: Start: 12-03-2020 Us transvaginal Mary Feng Work Phone: Start: 12-03-2020 Ct abdomen & pelvis w/contrast material Mary Feng Work Phone: Start: 12-03-2020 Basic metabolic 1998 panel - Serum or Plasma Mary Feng Work Phone: Start: 12-03-2020 Choriogonadotropin ( test) [Presence] in Urine Mary Feng Work Phone: Start: 12-03-2020 Complete blood count with white cell differential, automated Mary Feng Work Phone: Start: 12-03-2020 Complete blood count with white cell differential, manual Mary Feng Work Phone: Start: 12-03-2020 VELA TOP Enedina Troncoso Work Phone: Start: 12-03-2020 Hepatic function 2000 panel - Serum or Plasma Mary Feng Work Phone: Start: 12-03-2020 LAVENDER TOP Enedina Troncoso Work Phone: Start: 12-03-2020 LIGHT BLUE TOP Enedina Troncoso Work Phone: Start: 12-03-2020 LIGHT GREEN TOP Enedina Troncoso Work Phone: Start: 12-03-2020 Lipase [Enzymatic activity/volume] in Serum or Plasma Mary Feng Work Phone: Start: 12-03-2020 MINT GREEN TOP Enedina Troncoso Work Phone: Start: 12-03-2020 RAINBOW DRAW Enedina Troncoso Work Phone: Start: 12-03-2020 Urinalysis Mary Feng Work Phone: Start: 12-03-2020 URINE CONTAINER Enedina Troncoso Work Phone: Start: 11-15-2019 Iaadiadoo influenza Mary Resendiz Work Phone: Start: 11-15-2019 Iaadiadoo streptococcus group a Mary Resendiz Work Phone: Start: 10-07-2019 Radiologic examination knee 1/2 views Melody Fuentes Work Phone: Start: 08-08-2019 End: 08-08-2019 Arthrocentesis Tammy Silva Work Phone: Start: 08-01-2019 Radiologic exam knee complete 4/more views Tammy Silva Work Phone: Start: 05-04-2019 Referral to neurology service Lalitha Iraheta Work Phone: Start: 03-23-2019 Electroencephalogram w/rec awake&drowsy Waqar Alcocer Work Phone: Start: 03-23-2019 Electrocardiogram Provider Not In System Start: 03-22-2019 Troponin measurement Bahzat Chau Work Phone: Start: 03-22-2019 Echocardiography Bahzat Chau Work Phone: Start: 03-22-2019 Troponin measurement Bahzat Chau Work Phone: Start: 03-22-2019 MRI of cervical spine without contrast Waqar Alcocer Work Phone: Start: 03-22-2019 MRI of brain and brain stem Bahzat Youss ef Work Phone: Start: 03-22-2019 12 lead ECG Shelton Weeks Work Phone: Start: 03-22-2019 Radiologic exam chest single view Shelton Weeks Work Phone: Start: 03-22-2019 Ethanol [Mass/volume] in Serum or Plasma Shelton Weeks Work Phone: Start: 03-22-2019 Lactate [Moles/volume] in Serum or Plasma Shelton Weeks Work Phone: Start: 03-22-2019 CT of face Shelton Weeks Work Phone: Start: 03-22-2019 CT cervical spine without contrast Shubham Weeks Work Phone: Start: 03-22-2019 CT of entire head Shelton Weeks Work Phone: Start: 03-22-2019 Basic metabolic 1998 panel - Serum or Plasma Shelton Weeks Work Phone: Start: 03-22-2019 Choriogonadotropin [Units/volume] in Serum or Plasma Shelton Weeks Work Phone: Start: 03-22-2019 Complete blood count with white cell differential, automated Shelton Weeks Work Phone: Start: 03-22-2019 Complete blood count with white cell differential, manual Shelton Weeks Work Phone: Start: 03-22-2019 Hemoglobin A1c/Hemoglobin.total in Blood [employer] Work Phone: Start: 03-22-2019 Hepatic function 2000 panel - Serum or Plasma Shelton Weeks Work Phone: Start: 03-22-2019 INR in Platelet poor plasma by Coagulation assay Shelton Weeks Work Phone: Start: 03-22-2019 Lipase [Enzymatic activity/volume] in Serum or Plasma Shelton Weeks Work Phone: Start: 03-22-2019 End: 03-22-2019 Lipid 1996 panel - Serum or Plasma [employer] Work Phone: Start: 03-22-2019 Prothrombin time [facility] Start: 03-22-2019 Troponin measurement Shelton Weeks Work Phone: Plan of Treatment Date Care Activity Detail Author Start: 02-03-2033 DTaP/Tdap/Td Vaccines (2 - Td or Tdap) DTaP/Tdap/Td Vaccines (2 - Td or Tdap) [facility] Start: 02-03-2033 Tetanus vaccination Tetanus: Every 10yrs [facility] Start: 01-25-2032 Zoster Vaccines (1 of 2) Zoster Vaccines (1 of 2) [facility] Start: 07-13-2025 Gastrin [Mass/volume] in Serum or Plasma [facility] Start: 07-13-2025 Immunoglobulin measurement [facility] Start: 07-13-2025 Laboratory test [facility] Start: 07-13-2025 [facility] Start: 07-13-2025 Protein measurement [facility] Start: 07-13-2025 Radionuclide gastric emptying study [facility] Start: 06-26-2024 Influenza vaccination [facility] Start: 06-03-2024 End: 06-03-2024 Patient encounter procedure 06/03/2024 1:15 PM EDT Office Visit [facility] [address] [facility] [place] [id number] Melody Fuentes MD [address] [facility] [place] [address] [facility] Start: 04-01-2024 End: 04-01-2024 Follow-up encounter 04/01/2024 1:15 PM EDT Follow-Up [facility] [address] [facility] [place] [address] Melody Fuentes MD [address] [facility] [place] [address] [facility] Start: 03-22-2024 Lipid panel Lipid Panel [facility] Start: 02-12-2024 End: 02-12-2024 Follow-up encounter 02/12/2024 4:00 PM EDT Follow-Up [facility] [address] [facility] [place] [address] Melody Fuentes MD [address] [place] [address] [facility] Start: 02-11-2024 Screening for malignant neoplasm of breast Mammogram [facility] Start: 01-15-2024 End: 01-15-2024 Follow-up encounter 01/15/2024 3:30 PM EDT Follow-Up [facility] [address] [place] [address] Melody Fuentes MD [address] [facility] [place] [address] [facility] Start: 01-08-2024 End: 01-08-2024 Follow-up encounter 01/08/2024 3:45 PM EDT Follow-Up [facility] [address] [place] [address] Melody Fuentes MD [address] [facility] [place] [address] [facility] Start: 12-28-2023 End: 12-28-2023 Admission to same day surgery center 12/28/2023 9:31 AM EST - 12/28/2023 11:35 AM EST Surgery [facility] [address] [place] [address] Melody Fuentes MD [address] [place] [address] Right total knee replacement Robotic [facility] Comment on above: Right total knee replacement Robotic Start: 12-28-2023 End: 12-28-2023 ARTHROPLASTY KNEE TOTAL ROBOTIC ARTHROPLASTY KNEE TOTAL ROBOTIC Osteoarthritis of right knee, unspecified osteoarthritis type Knee instability, right S/P right knee arthroscopy 12/28/2023 9:31 AM EST [facility] Start: 12-28-2023 Subsequent hospital visit by physician 12/28/2023 9:31 AM EST Hospital Encounter [facility] [address] [place] [address] Melody Fuentes MD [address] [place] [address] [facility] Start: 12-21-2023 End: 12-21-2023 Patient encounter procedure 12/21/2023 8:00 AM EST Office Visit [facility] [address] [place] [address] Melody Fuentes MD [address] [place] [address] Corrine Heller MD [facility] [place] [address] [facility] Start: 12-11-2023 End: 12-11-2023 ambulatory [facility] Start: 12-11-2023 End: 12-11-2023 Patient encounter procedure 12/11/2023 3:15 PM EST Surgical Consult [facility] [address] [place] [address] Melody Fuentes MD [address] [place] [address] [facility] Start: 12-10-2023 End: 12-10-2023 Patient encounter procedure [facility] Preadmission Testing Start: 12-08-2023 End: 12-08-2023 ambulatory 12/08/2023 4:45 PM EST Treatment [facility] [address] [place] [address] Tammy Silva, OPERATIONS SPECIALIST [address] [place] [address] Geovanni Elam, PT [facility] Start: 12-03-2023 End: 12-03-2023 ambulatory 12/03/2023 4:45 PM EST Treatment [facility] [address] [place] [address] Tammy Silva, OPERATIONS SPECIALIST [address] [place] [address] Geovanni Elam, PT [facility] Start: 12-01-2023 End: 12-01-2023 ambulatory [facility] Start: 11-26-2023 End: 11-26-2023 ambulatory 11/26/2023 4:45 PM EST Treatment [facility] [address] [place] [address] Tammy Silva, OPERATIONS SPECIALIST [address] [place] [address] Geovanni Elam, PT [facility] Start: 11-24-2023 End: 11-24-2023 ambulatory 11/24/2023 4:45 PM EST Treatment [facility] [address] [place] [address] Tammy Silva, OPERATIONS SPECIALIST [address] [place] [address] Geovanni Elam, PT Discharge Disposition: Home [facility] Start: 11-19-2023 End: 11-19-2023 ambulatory 11/19/2023 4:45 PM EST Evaluation [facility] [address] [place] [address] Tammy Silva, OPERATIONS SPECIALIST [address] [place] [address] Geovanni Elam, PT Discharge Disposition: Home [facility] Start: 09-15-2023 [facility] Start: 06-26-2023 COVID-19 Vaccine ( season) COVID-19 Vaccine ( season) [facility] Start: 06-26-2023 Influenza vaccination [facility] Start: 04-02-2023 End: 04-02-2023 Patient encounter procedure 04/02/2023 Office Visit General Surgery Matty Phoenix MD [address] [place] [address] [facility] Advanced Laproscopic Surgery Start: 03-27-2023 End: 03-27-2023 Admission to same day surgery center 03/27/2023 Surgery Gastroenterology Matty Phoenix MD [address] [place] [address] EGD WITH BIOPSY [94974 (CPT )] [facility] Endoscopy Comment on above: EGD WITH BIOPSY [20350 (CPT )] Start: 03-27-2023 End: 03-27-2023 Egd transoral biopsy single/multiple [facility] Gastroenterology Start: 03-27-2023 Subsequent hospital visit by physician 03/27/2023 Hospital Encounter Gastroenterology Matty Phoenix MD [address] [facility] [address] [place] [address] [facility] Start: 03-17-2023 End: 03-17-2023 Patient encounter procedure [facility] Start: 02-27-2023 Subsequent hospital visit by physician 02/27/2023 Hospital Encounter Radiology [facility] Nuclear Medicine Start: 02-19-2023 End: 02-20-2024 NM Gallbladder Views W cholecystokinin and W radionuclide IV NM hepatobiliary scan with pharm agent w/cck Imaging Routine Epigastric pain Expected: 02/19/2023, Expires: 02/20/2024 [employer] Comment on above: Expected: 02/19/2023, Expires: 4 Start: 02-19-2023 End: 02-20-2024 RF Upper gastrointestinal tract and Small bowel Single view W contrast PO FL upper GI double contrast w KUB Imaging Routine Epigastric pain Esophageal dysphagia Expected: 02/19/2023, Expires: 02/20/2024 [employer] Comment on above: Expected: 02/19/2023, Expires: 4 Start: 02-19-2023 End: 02-20-2024 US Abdomen US abdomen complete Imaging Routine Epigastric pain Expected: 02/19/2023, Expires: 02/20/2024 [employer] Work Phone: Comment on above: Expected: 02/19/2023, Expires: 4 Start: 08-21-2022 Oxygen therapy [facility] Work Phone: Start: 08-21-2022 [facility] Work Phone: Start: 06-26-2022 Influenza vaccination Sequential Influenza Vaccine (Season Ended) [facility] Start: 05-13-2022 End: 05-13-2022 Patient 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 procedure [facility] 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 Start: 04-06-2022 Screening for malignant neoplasm of cervix CERVICAL CANCER SCREENING DISCUSSION [facility] Start: 2022 Screening for malignant neoplasm of breast Mammogram [facility] Start: 01-16-2022 End: 01-16-2022 Patient encounter procedure 01/16/2022 Office Visit Internal Medicine Osmar Garcia MD [address] [place] [address] [facility] [place] Start: 11-14-2021 End: 11-14-2021 Patient encounter procedure 11/14/2021 Office Visit Cardiology Clemente Lanids MD [address] [place] [address] [facility] Start: 11-07-2021 COVID-19 Vaccine (4 - Booster for Moderna series) COVID-19 Vaccine (4 - Booster for Moderna series) [facility] Start: 11-07-2021 COVID-19 Vaccine (4 - Moderna series) COVID-19 Vaccine (4 - Moderna series) [facility] Start: 10-28-2021 End: 10-28-2021 Patient encounter procedure 10/28/2021 Office Visit Cardiology Clemente Landis MD [address] [place] [address] [facility] Start: 10-15-2021 End: 10-15-2021 Patient encounter procedure 10/15/2021 Office Visit Cardiology Clemente Landis MD [address] [place] [address] [facility] Start: 09-12-2021 End: 09-12-2022 Basic metabolic 2000 panel - Serum or Plasma Basic metabolic panel Lab Routine Hypertension, unspecified type Expected: 09/12/2021, Expires: 09/12/2022 [facility] Work Phone: Comment on above: Expected: 09/12/2021, Expires: Start: 07-06-2021 COVID-19 VACCINE (3 - Booster for Moderna series) COVID-19 VACCINE (3 - Booster for Moderna series) [facility] Start: 06-26-2021 Influenza vaccination [facility] Start: 06-14-2021 Screening for malignant neoplasm of cervix CERVICAL CANCER SCREENING DISCUSSION [facility] Start: 06-05-2021 COVID-19 Vaccine (3 - Booster for Moderna series) COVID-19 Vaccine (3 - Booster for Moderna series) [facility] Start: 04-16-2021 Hospital Encounter 04/16/2021 Hospital Encounter Multispecialty Matty Donaldson MD [address] [place] [id number] Menorrhagia with regular cycle [facility] Comment on above: Menorrhagia with regular cycle Start: 06-26-2020 Influenza vaccination INFLUENZA VACCINE (#1) [facility] Start: 06-26-2020 Influenza vaccination given Sequential Influenza Vaccine (#1) [facility] Start: 10-25-2019 End: 10-25-2019 Follow-Up 10/25/2019 Follow-Up Sports Medicine Hilton Camarillo MD [address] [place] [address] [phone] [facility] Start: 10-07-2019 End: 10-07-2019 Hospital Encounter [facility] Comment on above: Primary osteoarthritis of right knee; Primary osteoarthritis of left knee Bilateral knee arthr oscopy with screw removal Start: 09-27-2019 End: 09-27-2019 Surgical Consult 09/27/2019 Surgical Consult Sports Medicine Melody Fuentes MD [address] [place] [address] [phone] [facility] Start: 08-08-2019 End: 08-08-2019 Office Visit 08/08/2019 Office Visit Sports Medicine Tammy Silva, OPERATIONS SPECIALIST [address] [facility] [place] [address] [phone] [facility] Start: 06-26-2019 Influenza vaccination INFLUENZA VACCINE (#1) [facility] Start: 06-26-2019 Influenza vaccination given [facility] Start: 06-15-2019 End: 06-15-[address] [facility] Start: 06-13-2019 End: 06-13-[address] [facility] Start: 06-08-2019 End: 06-08-2019 Treatment 06/08/2019 Treatment Lalitha Esqueda MD [address] [place] [address] [phone] Kiran Barroso, PT [facility] Start: 06-06-2019 End: 06-06-2019 Treatment 06/06/2019 Treatment Lalitha Esqueda MD [address] [place] [address] [phone] Kiran Barroso, PT [facility] Start: 06-01-2019 End: 06-01-[address] [facility] Start: 05-30-2019 End: 05-30-2019 Treatment 05/30/2019 Treatment Lalitha Esqueda MD [address] [place] [address] [phone] Kiran Barroso, PT [facility] Start: 05-25-2019 End: 05-25-2019 Treatment 05/25/2019 Treatment Lalitha Esqueda MD [address] [place] [address] [phone] Kiran Barroso, PT [facility] Start: 05-23-2019 End: 05-23-2019 Treatment 05/23/2019 Treatment Rehabilitation Lalitha Iraheta MD [address] [place] [address] [phone] Kiran Barroso PT [facility] Start: 05-10-2019 End: 05-10-2019 Office Visit 05/10/2019 Office Visit Cardiology Denver Prater MD [address] [place] [address] [phone] [facility] Start: 03-24-2019 End: 03-24-2019 Appointment 03/24/2019 Appointment Cardiology Juana Das MD [address] [place] [address] [phone] [facility] Start: 01-25-2012 Screening for malignant neoplasm of cervix [facility] Start: 2003 Screening for malignant neoplasm of cervix [facility] Start: 2001 Third diphtheria, tetanus and acellular pertussis (DTaP) vaccination TDAP (ADULT) [facility] Start: 01-25-2000 Diabetes mellitus screening Diabetes Screening [facility] Start: 01-25-2000 Hepatitis C antibody, confirmatory test Hepatitis C Screening [facility] Start: 01-25-2000 Hepatitis C screening Hepatitis C Screening [facility] Start: 01-25-2000 Tetanus vaccination TETANUS [facility] Start: 1998 COVID-19 VACCINE (1) COVID-19 VACCINE (1) [facility] Start: 1997 HIV screening [facility] Start: 1995 HIV screening HIV SCREENING DISCUSSION [facility] Start: 1994 Adolescent depression screening assessment [facility] Start: 1994 Depression screening using PHQ-9 (Patient Health Questionnaire 9) score [facility] Start: 1987 COVID-19 VACCINE (1) COVID-19 VACCINE (1) [facility] Start: 1985 History and physical examination, annual for health maintenance Wellness Visit [facility] Start: 1983 MMR Vaccines (1 of 1 - Standard series) MMR Vaccines (1 of 1 - Standard series) [facility] Start: 1983 Varicella vaccination Varicella Vaccines (1 of 2 - 2-dose childhood series) [facility] Start: 1982 Depression screening using PHQ-9 (Patient Health Questionnaire 9) score DEPRESSION SCREENING (PHQ9) [facility] Start: 1982 Hepatitis B Vaccines (1 of 3 - 3-dose series) Hepatitis B Vaccines (1 of 3 - 3-dose series) [facility] Start: 1982 Hepatitis C antibody, confirmatory test HEPATITIS C VIRUS SCREENING [facility] Start: 1982 HIV screening HIV Screening [facility] Start: 1982 Lipid panel Lipid Panel [facility] Start: 1982 Screening for malignant neoplasm of cervix PAP SMEAR [facility] Start: 1982 Tetanus vaccination [facility] Antibody to lupus [place] protein measurement [facility] Antibody to SS-A measurement [facility] Beef IgE Ab [Units/volume] in Serum [facility] Beef IgE Ab [Units/volume] in Serum [facility] End: 03-24-2019 Cardiac event recording Cardiac event monitor Cardiac Services Routine Syncope, unspecified syncope type Once for 1 Occurrences starting 03/24/2019 until 03/24/2019 [facility] Comment on above: Once for 1 Occurrences starting 03/24/20 19 until 03/24/2019 End: 09-04-2022 Cardiac event recording Cardiac event monitor Cardiac Services Routine Bradycardia Near syncope 1 Occurrences starting 09/03/2021 until 09/04/2022 [facility] Comment on above: 1 Occurrences starting 09/03/2021 until 09/04/2022 Chitobioside IgA Ab [Units/volume] in Serum or Plasma by Immunoassay [facility] Chocolate IgE Ab [Units/volume] in Serum [facility] Chocolate IgE Ab [Units/volume] in Serum [facility] Codfish IgE Ab [Units/volume] in Serum [facility] Colonoscopy flx dx w/collj spec when pfrmd COLONOSCOPY DIAGNOSTIC LGI bleed [facility] Velarde IgE Ab [Units/volume] in Serum [facility] Velarde IgE Ab [Units/volume] in Serum [facility] Cow milk IgE Ab [Units/volume] in Serum [facility] Cow milk IgE Ab [Units/volume] in Serum [facility] End: 04-10-2023 CT Abdomen and Pelvis W contrast IV [employer] Work Phone: Comment on above: Once for 1 Occurrences starting 04/10/20 until 04/10/2023 CTA Heart and [place] ry arteries W contrast IV [facility] Work Phone: DNA double strand Ab [Units/volume] in Serum [facility] End: 09-04-2022 Echocardiography Echocardiogram complete Echocardiography Routine SOB (shortness of breath) on exertion 1 Occurrences starting 09/03/2021 until 09/04/2022 [employer] Work Phone: Comment on above: 1 Occurrences starting 09/03/2021 until 09/04/2022 Elastase.pancreatic [Presence] in Stool [facility] Food [facility] Gliadin peptide IgA Ab [Units/volume] in Serum [facility] Gliadin peptide IgA Ab [Units/volume] in Serum [facility] Gliadin peptide IgG Ab [Units/volume] in Serum [facility] Gliadin peptide IgG Ab [Units/volume] in Serum [facility] HCG ( test) Ql (U) POC , Urine Point of Care Testing Routine 10/07/2019 8:40 AM EST [employer] IgA [Mass/volume] in Serum or Plasma [facility] IgE [Units/volume] i n Serum or Plasma [facility] IgG [Mass/volume] in Serum or Plasma [facility] IgM [Mass/volume] in Serum or Plasma [facility] Lactoferrin [Presenc e] in Stool by Immunoassay [facility] Laminaribioside IgG Ab [Units/volume] in Serum or Plasma by Immunoassay [facility] Lipid 1996 panel - S arely or Plasma [facility] Work Phone: Mannobioside IgG Ab [Units/volume] in Serum or Plasma by Immunoassay [facility] Measurement of funga l antibody [facility] Measurement of immunoglobulin A in serum specimen [facility] Measurement of immunoglobulin A in serum specimen [facility] Methicillin resistan t Staphylococcus aureus [Presence] in Unspecified specimen by Organism specific culture MRSA Culture/Screen Microbiology Routine S/P right knee arthroscopy Knee instability, right 12/10/2023 7:39 AM EST [employer] Work Phone: Neutrophil cytoplasm ic Ab.classic [Units/volume] in Serum [facility] Neutrophil cytoplasm ic Ab.perinuclear.atypical [Titer] in Serum by Immunofluorescence [facility] P-ANCA measurement [facility] Patient Education [facility] Work Phone: Patient referral [facility] Work Phone: Peanut IgE Ab [Units/volume] in Serum [facility] Peanut IgE Ab [Units/volume] in Serum [facility] Pork IgE Ab [Units/volume] in Serum [facility] Pork IgE Ab [Units/volume] in Serum [facility] [place] IgE Ab [Units/volume] in Serum [facility] Shrimp IgE Ab [Units/volume] in Serum [facility] Soybean IgE Ab [Units/volume] in Serum [facility] Soybean IgE Ab [Units/volume] in Serum [facility] End: 09-04-2022 Stress test only, exercise Stress test only, exercise Cardiac Services Routine Bradycardia Near syncope 1 Occurrences starting 09/03/2021 until 09/04/2022 [facility] Comment on above: 1 Occurrences starting 09/03/2021 until 09/04/2022 Tissue exam [facility] [employer] Work Phone: Comment on above: Release Upon Ordering for 1 Occurrences starting 03/27/2023 Tissue transglutamin ase IgA Ab [Units/volume] in Serum [facility] Tissue transglutamin ase IgA Ab [Units/volume] in Serum [facility] Tissue transglutamin ase IgG Ab [Units/volume] in Serum [facility] Tuna IgE Ab [Units/volume] in Serum [facility] US Pelvic Transabdom inal And Transvaginal With Color Flow US Pelvic Transabdominal And Transvaginal With Color Flow Imaging STAT 12/03/2020 12:32 PM EST [facility] Wheat IgE Ab [Units/volume] in Serum [facility] Wheat IgE Ab [Units/volume] in Serum [facility] Whole Egg IgE Ab [Units/volume] in Serum [facility] Whole Egg IgE Ab [Units/volume] in Serum [facility] Payers Date Payer Category Payer Self-pay 2023 Unknown [id number] 2014 Unknown [id number] 2014 Unknown [email or web address] 1. 2.840.304686.1.13.385.2.7.3.196021.315 2014 Unknown [id number] 1. 2.840.122754.1.13.385.2.7.3.157184.315 2014 Unknown 1.2.840.807794. 1.13.385.2.7.3.942822.315 1982 Unknown [id number] 2.16.8 40.1.021755.3.579.2.900 1982 Unknown [id number] 2.16. 840.1.170400.3.579.2.903 1982 Unknown [id number] 2.16. 840.1.216043.3.579.2.903 1982 Unknown [id number] 2.16. 840.1.445463.3.579.2.903 1982 Unknown [id number] 2.16. 840.1.920732.3.579.2.903 1982 Unknown [id number] 2.16. 840.1.727961.3.579.2.903 1982 Unknown [id number] 2.16. 840.1.166115.3.579.2.903 1982 Unknown [id number] 2.16. 840.1.702767.3.579.2.903 1982 Unknown [id number] 2.16. 840.1.923547.3.579.2.903 1982 Unknown [id number] 2.16. 840.1.432597.3.579.2.903 1982 Unknown [id number] 2.16. 840.1.908095.3.579.2.903 1982 Unknown [id number] 2.16. 840.1.637007.3.579.2.903 1982 Unknown [id number] 2.16. 840.1.281115.3.579.2.903 1982 Unknown [id number] 2.16. 840.1.699967.3.579.2.903 1982 Unknown [id number] 2.16. 840.1.780040.3.579.2.903 1982 Unknown [id number] 2.16. 840.1.185294.3.579.2.903 1982 Unknown [id number] 2.16. 840.1.726954.3.579.2. 1982 Unknown [id number] 2.16. 840.1.290691.3.579.2.3 1982 Unknown [id number] 2.16. 840.1.751960.3.579.2. 1982 Unknown [id number] 2.16. 840.1.164256.3.579.2.903 Unknown [id number] 2.16.8 40.1.813457.3.579.2.462 Unknown [id number] 2.16.8 40.1.916458.3.579.2.462 Unknown [id number] 2.16.8 40.1.418696.3.579.2.462 Unknown [id number] 2.16.8 40.1.371074.3.579.2.462 Unknown [id number] 2.16.8 40.1.069137.3.579.2.462 Unknown [id number] 2.16.8 40.1.697418.3.579.2.462 Unknown [id number] 2.16.8 40.1.327002.3.579.2.462 Unknown [id number] 2.16.8 40.1.380127.3.579.2.462 Social History Date Type Detail Facility Start: 03-22-2019 End: 07-13-2025 Tobacco smoking status NHIS Never smoker [facility] Start: 03-22-2019 Alcohol Comment occasional-- s tates drinking 4 beers last night [facility] Start: 1980 Sex Assigned At Not on file [facility] Start: 06-08-2019 End: 12-08-2023 Alcohol intake Current drinker of alcohol (finding) [facility] Start: 12-03-2020 End: 12-10-2023 Tobacco use and exposure Never used [facility] Start: 12-21-2021 End: 04-10-2023 Exposure to SARS-CoV-2 (event) Not sure [facility] Start: 12-17-2020 Alcohol Comment occ [facility] Start: 01-17-2021 History SDOH Alcohol Frequency 2 [facility] Start: 01-17-2021 History SDOH Alcohol Std Drinks 1 [facility] Start: 01-17-2021 History SDOH Social Connections Living 3 [facility] Start: 01-17-2021 History SDOH Financial 4 [facility] Start: 01-17-2021 Alcohol Comment consumes socially [facility] Start: 09-03-2021 End: 06-03-2024 Alcohol intake [facility] Start: 07-23-2022 End: 09-15-2023 Tobacco smoking status NHIS Unknown if ever smoked [facility] Start: 1980 Sex Assigned At Female W [facility] Start: 02-17-2023 Alcohol Comment OCCASIONALLY [facility] Start: 03-20-2022 End: 06-03-2024 Tobacco use panel [facility] Start: 08-08-2019 Gender identity Identifies as female gender (finding) [facility] Start: 08-08-2019 Sexual orientation Heterosexual (fin ding) [facility] Start: 12-10-2023 End: 06-03-2024 Alcohol intake Ex-drinker (finding) [facility] Start: 12-10-2023 Alcohol Comment [facility] NE[facility]: Highlighted row [facility] Medical Equipment Procedure Code Equipment Code Equipment Origin al Text Equipment Identifier Dates 1 Screw [id number] Start: 10-07-2019 Comment on above: Description: 1 screw removed Component Sz3 Fe m Cr Rt Cementless Beaded W/Pa Triathlon - [id number], [id number] FDA Start: 12-28-2023 Baseplate Sz2 Tibial Tritanium Triathlon - [id number], [id number] FDA Start: 12-28-2023 Insert Sz2-10 Tibial Cr X3 Triathlon [id number] - [id number] ()[id number], [id number] FDA Start: 12-28-2023 Patella 29mm Asymmetric Metal-Backed Tritanium Triathlon - [id number] ([id number], [id number] FDA Start: 12-28-2023 Goals Date Patient Goal Desired Activity /State Mental Status Date Assessment Result Facility 08-21-2022 Cognitive function Voice/Name [facility] Work Phone: Clinical Notes 05-07-2021 to 07-13-2025 Note Date & Type Note Facility 07-13-2025 Progress note [facility] 07-13-2025 Progress note Note Date/Time July 13, 2025 2:22pm [facility] [address] [place] [address] OFFICE VISIT Date of Service: 07/13/25 MR#: [id number] Acct: [id number] Name: DEVYN CORONA Rep #: [id number] : 1980 Provider: Rob Segovia DO Age/Sex: 45/F Location: [facility] [place] Status: Signed Intake Vital Signs 03/28/24 13:24 Height 5 ft 5 in Intake Visit Reasons: Referred by PCP Allergies No Known Allergies Allergy (Verified 10/17/24 10:07) Medications ?Medication ?Instructions ?Recorded ?Confirmed ?Type multivitamin with minerals 1 tab PO DAILY 07/07/22 History (Hair,Skin and Nails tablet) lactobacillus combination no.4 3 3,000 mmu cells PO QD AY 07/13/25 07/13/25 History billion cell capsule (Probiotic) magnesium PO 07/13/25 07/13/25 History zinc acetate PO 07/13/25 07/13/25 History Nurse's Note: Pt was scheduled for capsule endoscopy on 07.31.25 at the end of their appt today. Reviewed prep instructions and which medications to hold prior to procedure with pt in office. A paper copy of capsule prep instructions were given to pt. Pt denies any questions or concerns at this time. Capsule consent signed. [facility] Medical History [place] (dyspnea on exertion) Fatigue Migraine GERD (gastroesophageal reflux disease) Depression Bradycardia Anemia Essential (primary) hypertension Surgical History Hx of tubal ligation Hx of abdominoplasty Hx of knee surgery Hx of knee surgery History of breast augmentation (~2009) History of hysterectomy (~04/16/21) Family History Father Cancer Lung Son 5p minus syndrome Social History (Updated 07/13/25 @ 13:52 by Yaima Potter) household members: spouse Smoking Status: Never smoker alcohol intake: current alcohol intake frequency: holidays/special occasions only substance use type: does not use caffeine: Yes Type: coffee Number of servings: 1 HPI HPI Details: DEVYN CORONA, is a 45 F who presents to the office today for initial consult. *[facility] established 07.13.25 pt reports she began having GI symptoms in 2019, pt wonders if it could be related to her COVID shot. Pt reports nausea, constipation, abd pain, and gas / bloating. Pt reports she had a colonoscopy in 2020 and an EGD in 2021; reports both scopes were clear. Pt states she also had a hysterectomy because her doctors thought her pain was from fibroids. Pt requested allergy testing from previous provider, was told that allergies don'tjust pop up, states she has cut gluten out of her diet for the past 3 years andhas noticed a slight improvement in symptoms. Pt has tried miralax and smooth move tea, is now taking milk of magnesia. Reports she is having a bm once every 3 days, when she is able to go she reports urgent diarrhea. I've been having alternating constipation and urgent diarrhea, accompanied by bloating and cramping abdominal pain.. The symptoms began approximately 5 years ago. Her abdominal pain is diffuse but described as crampy and down low in her belly. She patient experiences episodes of constipation lasting 3-5 days, followed by periods of urgent diarrhea. Bloating and pain are persistent and canbe triggered or worsened by eating. She describes the pain as dull, cramping abdominal pain rated as { 6/10 on a scale of 1-10]. She gets Bloating:?Frequent abdominal distention, often occurring after meals. She also gets Constipation:?Reports fewer than three bowel movements per week during episodes. Stools are hard and difficult to pass. Frequently, she reports urgent, loose, watery stools occurring multiple times a day during episodes. No blood or mucus observed. Aggravating Factors:?Symptoms worsen with stress and certain foods (e.g., high-fat, dairy). Alleviating Factors:?no significant relief from xdxg-upf-gdelomz medications. Passing gas or a bowel movement sometimes provides temporary, mild relief from bloating and cramping. Associated Symptoms:?reports a sensation of incomplete bowel evacuation. Denies fever, chills, nausea, vomiting, hematochezia, or unintentional weight loss. 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 ROS Const Constitutional: No fatigue, fever(s) or weight change ENT ENT: No difficulty swallowing Gastro GI: Positive for abdominal pain, bloating, change in bowel habits, constipation,excessive flatus and nausea/dyspepsia; No belching, change in stool character, coffee ground emesis, cramping, diarrhea, heartburn, difficulty swallowing, feeling full early, incontinent of stools, Vomiting blood/hematemesis, Blood in stool, loose stools, Black,tarry stools, pain with swallowing, vomiting or other Musc Musculoskeletal: No joint pain Skin Skin: No yellowing of the eye or itchy eyes Psych Psychiatric: No anxiety and No depression Endo Endocrine: No fatigue or weight change Aller/Imm Allergy/Immunologic: No itchy eyes Vivek/Lymp Hematologic/Lymphatic: No easy bleeding or easy bruising Exam Const General: cooperative, healthy appearing, comfortable and no acute distress Nutritional Appearance: well nourished Orientation: oriented x3 Eyes Sclera: sclerae normal Resp Effort & Inspection: normal respiratory effort Auscultation: Bilateral: Clear to Auscultation Cardio Palpation: normal PMI Rate: regular rate Rhythm: regular rhythm GI Inspection: normal to inspection Auscultation: normal bowel sounds Palpation: soft Assessment and Plan Assessment and Plan (1) Mixed irritable bowel syndrome: Status: Acute (2) Abdominal pain: Status: Acute Plan: Principal Diagnosis: Irritable Bowel Syndrome with Mixed Bowel Habits (IBS-M) * Rationale:?The patient's presentation of chronic, intermittent abdominal pain associated with a change in bowel habits, characterized by alternating episodes of constipation and diarrhea, is a classic presentation of IBS-M. Her symptoms are worsened by stress and eating, consistent with the diagnosis. The lack of alarm symptoms like fever, weight loss, or blood in the stool makes other, more serious conditions less likely, but not impossible. Differential Diagnoses: * Gastroenteritis:?Considered due to recent diarrhea, but less likely given the chronic, alternating nature of symptoms. * Lactose or other Food Intolerance:?Symptoms can mimic IBS, especially with post-prandial bloating and pain. May be a contributing factor. * Small Intestinal Bacterial Overgrowth (SIBO):?Can cause bloating, pain, and altered bowel habits. * Inflammatory Bowel Disease (IBD):?Less likely due to the absence of red-flag symptoms such as weight loss, bloody stool, and severe constitutional symptoms. However, cannot be fully ruled out without further testing. P: Plan 1. Diagnostic/Testing: * Stool Studies:?Consider stool culture,?C. diff?toxin, and fecal calprotectin to rule out infectious causes and inflammation. * Blood Work:?Consider a complete blood count (CBC), comprehensive metabolic panel (CMP), and celiac panel if symptoms are atypical or severe. Biochemical testing for food allergies. * imaging:?Gastric emptying study and capsule endoscopy. She is already had an upper and lower endoscopy without any underlying pathological process identified 2. Treatment: * Dietary Modifications: * Low FODMAP Diet:?Educate the patient on trialing a low FODMAP (Fermentable Oligosaccharides, Disaccharides, Monosaccharides and Polyols) diet to identify and eliminate trigger foods that may cause bloating and gas. * Fiber Intake:?Recommend a gradual increase in soluble fiber (e.g., psyllium husk) to help regulate bowel movements, especially during episodes of constipation. * Hydration:?Emphasize drinking 8-10 glasses of water daily. * Symptom Management (Pharmacologic, as needed): * Constipation:?osmotic laxative (e.g., MiraLAX) during periods of constipation stopped working for her. Depending imaging we would attempt to formulate a natural way for her to have a normal bowel movement on a daily basis. * Diarrhea:?Suggest an antidiarrheal agent (e.g., loperamide) for urgent diarrhea episodes. * Pain:?Recommend a trial of an antispasmodic medication for cramping pain. * Lifestyle Changes: * Stress Management:?Recommend incorporating stress-reduction techniques such as mindfulness, yoga, or deep breathing exercises. * Regular Exercise:?Encourage regular physical activity, which can help improve bowel function. 3. Patient Education: * Condition Explanation:?Explain the chronic and fluctuating nature of IBS and that symptoms are managed rather than cured. * Symptom Monitoring:?Instruct the patient to keep a symptom journal to track dietary triggers, bowel habits, and stress levels. * When to Return:?Advise the patient to return for any alarm symptoms, including fever, persistent vomiting, blood in the stool, or significant weight loss. Orders: Orders ANCA Today K58.2 - Mixed irritable bowel syndrome, R10.9 - Unspecified abdominal pain ELIZABETH Comprehensive Panel Today K58.2 - Mixed irritable bowel syndrome, R10.9 - Unspecified abdominal pain Lipase Today K58.2 - Mixed irritable bowel syndrome, R10.9 - Unspecified abdominal pain Amylase Today K58.2 - Mixed irritable bowel syndrome, R10.9 - Unspecified abdominal pain CRP Today K58.2 - Mixed irritable bowel syndrome, R10.9 - Unspecified abdominalpain Erythrocyte Sed Rate Today K58.2 - Mixed irritable bowel syndrome, R10.9 - Unspecified abdominal pain Immunoglobulins G/A/M/E Today K58.2 - Mixed irritable bowel syndrome, R10.9 - Unspecified abdominal pain Celiac AB,Comprehensive Today K58.2 - Mixed irritable bowel syndrome, R10.9 - Unspecified abdominal pain Allergen, Food Profile 14 Today K58.2 - Mixed irritable bowel syndrome, R10.9 -Unspecified abdominal pain IBD Expanded Profile Today K58.2 - Mixed irritable bowel syndrome, R10.9 - Unspecified abdominal pain Gastrin, Serum Today K58.2 - Mixed irritable bowel syndrome, R10.9 - Unspecified abdominal pain Pancreatic Elastase, Fecal Today K58.2 - Mixed irritable bowel syndrome, R10.9 - Unspecified abdominal pain Calprotectin, Stool Today K58.2 - Mixed irritable bowel syndrome, R10.9 - Unspecified abdominal pain Stool Lactoferrin/WBC Today K58.2 - Mixed irritable bowel syndrome, K58.9 - Irritable bowel syndrome, unspecified, R10.9 - Unspecified abdominal pain Gastric Emptying Study Today R10.9 - Unspecified abdominal pain, R11.0 - Nausea Coding Level of Care Code Off vis,new,level 4 Diagnoses Mixed irritable bowel syndrome K58.2 Abdominal pain R10.9 07/13/25 1514 <Electronically signed by Rob gonzalez DO> Date _ Rob Segovia DO Cosigner Signature: Date (if applicable) CC: ~ [facility] [employer] Work Phone: [phone] NoteShe comes in today for followup of her right total knee replacement. At this point in time, the patient is now 5 months out from her knee replacement. At one week, she was doing fantastic, then she caught her toe, twisted the knee, had some pain. She has worked hard to restore her function since then. She has finished up with therapy. Last time I saw her, we tried some various modalities including a Medrol Dosepak, as well as Mobic and Lyrica. She thinks that the Lyrica helped more than anything else. PHYSICAL EXAM General: Today, she is awake, alert and oriented x3, ambulates without assistive device. Extremities: Her wound is clean, dry, intact. No erythema. No drainage. No lymphangitis. No cellulitis. On today's exam, she has near full extension. On today's exam, she measures 110 degrees with a chair slide. No DVT signs or symptoms. Calves soft. IMPRESSION Five months status post right knee replacement. PLAN At this point in time, she feels like the Lyrica helps her more than anything else. I have given her a refill on that and I will see her in December for her year checkup. AUTHENTICATED BY MELODY FUENTES, ON 06/04/2024 10:14:44[facility]06-29-2024 Jeanette Corona comes in today for 4 month followup of her right total knee replacement. She is a little bit frustrated. The patient says that she was doing so well, felt like she had a life changing event with her knee. Unfortunately, at 9 days after her surgery, she caught her toe and twisted the knee, and every since then it has been a little bit more frustrating for her. The patient has had 4 surgeries on her right knee prior to the knee replacement and her ACL reconstruction was over 23 years ago. Preoperatively the patient only had 100 degrees of knee flexion. She is just frustrated because she was doing so well at day 9 and she feels like she just has not gotten where she wants to be. If you will recall, we x-rayed the patient on 01/07 as well as 02/11 which showed normal-appearing knee x-rays. PHYSICAL EXAMINATION General: She is awake, alert, oriented x3. She ambulates without assistive device. Extremities: At this time right lower extremity neurologically intact, 2+ pulses. She has full range of motion of the right ankle and hip. At this time, the right knee has about 3 degrees short of full extension. She has mild knee effusion. No ligamentous instability. Negative anterior-posterior drawer. Negative Tiffanie. No varus or valgus instability. No erythema. She has on today's exam, 100 degrees of active flexion with about 105 degrees with a passive assist range of motion. IMPRESSION 4 months' status post right total knee replacement. PLAN At this point in time, we are going to try a couple of different options for her. To try to alleviate some of the acute inflammation, we are going to try Medrol Dosepak. We are going to follow that up with a 1 month supply of Mobic. I am also going to try some Lyrica for neuralgia type pain for a week, see if there is any improvement. I will also add Flexeril. I do not believe we need any x-rays or laboratories at this point in time. We are going to continue to work through the process. I will see her in 6 weeks. AUTHENTICATED BY MELODY FUENTES, ON 04/24/2024 09:19:22[facility]04-19-2024 Telephone encounter Note* Telephone Encounter - Kylah Arora LPN - 02/12/2024 4:46 PM EDT Patient requested refill for pain medication. Surgery 3/4 right TKR, last fill 01/15. [id number] Miscellaneous Notes* Telephone Encounter - Kylah Arora LPN - 02/12/2024 4:46 PM EDT Patient requested refill for pain medication. Surgery 3/4 right TKR, last fill 01/15. documented in this [id number] History of Present illness Narrative* Tammy Silva CNP - 01/04/2024 4:41 PM EDT Patient contacted office for refills on her pain medication and muscle relaxer. Ok'd per Dr. Fuentes, will call those in to the pharmacy. She is to call the office with any questions documented in this [id number] History of Present illness Narrative* Kylah Arora LPN - 01/01/2024 3:37 PM EST Teressa from [facility] called patient is doing wonderful she would like to d/c her from and haveher go to op therapy. I LVM asking Teressa to continue one more week if possible. 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 lisinopriL-hydrochlorothiazide (PRINZIDE,ZESTORETIC) 20-12.5 mg per tablet Take 1 (one) tablet by mouth daily . multivitamin (THERAGRAN) per tablet Take 1 (one) tablet by mouth daily . multivitamin with minerals tablet Take 1 (one) tablet by mouth daily . zinc gluconate 50 mg tablet Take 1 (one) tablet (50 mg total) by mouth daily . meloxicam (MOBIC) 15 MG tablet Take 1 (one) tablet (15 mg total) by mouth daily . (Patient not taking: Reported on 12/10/2023 .) STOP antiinflammatory medications such as Advil, Motrin, Ibuprofen, Naproxen, Aleve, Dominique Pomerene, Pepto-Bismol, Anacin, Diclofenac, Voltaren, Daypro, Etodolac, Ketoprofen, Piroxicam, Relafen, Nabumetone, etc. Also discontinue Vitamin C, Vitamin E, Ezel-3 Fatty Acid, Fish Oil or Lovaza, and all herbal medications DIRECTED BY SURGEON. Tylenol (acetaminophen) is acceptable(unless you have an allergy to this medication ), but be careful to follow the label directions and do not use with other pain medications. On the morning of surgery, with as little water as possible, ONLY take the medications listed abovein the column Take the morning of surgery. If you are using Eye Drops or Inhalers, please bring them to the hospital. Patient Instructions for [facility]: Prior to surgery: Surgeon's office will contact you with the scheduled time of your surgery. You may use the [employer] parking available at the Main Entrance One family member may accompany you back into the Pre-Op Area. Do not eat or drink anything after midnight or as directed, including gum, mints, and cough drops. Unless you were instructed and given Boost drink instructions. No smoking after midnight. No chewing tobacco after midnight. No alcohol 24 hours prior to your surgery. Please take any medications you have been instructed to take the morning of your surgery with smallsips of water. Please be sure to wear comfortable, appropriate clothing. Please remove all jewelry and piercing's, including wedding rings. Leave all valuable items at home. Shower using anti-bacterial soap or as advised by your Surgeon's office Do not apply any makeup or lotions. Remove all nail turkmen for surgeries involving extremities. Please remember to bring both your insurance card and a photo ID with you on the day of surgery. After your surgery: If you are having outpatient surgery - you must have a licensed dedicated local truck driver to take you home. The expectation is that this dedicated local truck driver will remain at the hospital for the duration of your procedure. You are advised to have a family member with you for at least 24 hours after being under Anesthesia. If you have sleep apnea and have a CPAP/BIPAP mask, please bring it with you the day of surgery.If you have sleep apnea and have a CPAP/BIPAP mask, please bring it with you the day of surgery. Pt does not report any of the following: Ascites Fluid restriction: CHF, ESRD, [place]'s, Insulin pump for blood glucose control difficulty swallowing Neurological disease NPO due to alternative nutrition or IV nutrition Achalasia Severe gastroparesis Hiatal Hernia Severe GERD Partial or Total gastrectomy Gastric resection History of whipple procedure requiring jejunostomy tube placement Pt is a candidate for carb loading drink process. 3-8oz boost breeze given with instructions documented in this [id number] History of Present illness Narrative* Donna Monroe PTA - 12/10/2023 9:38 AM EST Right knee range of motion at the time of joint camp is 0 - 115. Patient completed the Home Safety Assessment on date of Joint Camp, with all questions answered. A copy of the Home Safety Assessment and surveys were provided. * Sharon Aguilar LISW-S - 12/10/2023 8:27 AM EST Care Management Consult Note Date: 12/10/2023 Time: 8:27 AM Patient Name: Devyn Corona Date of : 1980 Reason for Consult: Discharge Plan: Plan A: Home Health Care Services Discharging Transportation Plan: Discharge Plan Status: Met with Devyn Corona during Joint Camp on 12/10/2023. The patient is scheduled to have right kneereplacement surgery with Dr Fuentes on 12/28/2023. She lives with her , Michael, in a [address] with 5 steps and a handrail on the left to enter. He will assist the patient after surgery. The bedroom and bathroom are on the second floor. There is also a full bath on the first floor. Thelaundry is in the basement. The bathroom has a walk-in shower with a seat. The commode is standard height. Devyn Corona wants to have [place], [facility], or [facility]. A referral will be made. The patient will need a wheeled walker after surgery. She may be able to borrow a walker from her aunt. If she is not able to borrow one, she would like a wheeled walker from [facility], our preferred provider. Request initiated in the system. She is aware that she can decline the walker with [facility]. Verified Devyn Corona address and phone number. Devyn Corona feels safe at home. Educated to Advanced Directives and gave a blank copy. Devyn Corona does have prescription coverage by [employer] and denies any financial concerns. Home Care Follow Up: Referral was made to Loco at [facility]. She will review the referral. P: [phone], F: [phone]. Addendum 12/11/23 @ 3123: Received a call from Teressa at [facility]. She indicated that she received the referral and they would check the patients benefits and call us back as to whether or not they could accept the referral. FARRAH Herrera Assessment and Background Information: Living Arrangements: Spouse/significant other Support Systems: Spouse/significant other Type of Residence: Private residence Prior to Admission Home Care Services: No documented in this [id number] Instructions* Patient Instructions* Maddy Gaytan RN - 12/10/2023 8:54 AM EST Preoperative Medication Instructions In preparation for surgery please continue all of your current medications with the following changes: Active Home Medications Medication Sig Take Last Dose On Take Morning of Surgery Comment(s) ferrous sulfate 325 (65 FE) MG tablet Take 1 (one) tablet (325 mg total) by mouth daily with breakfast . STOP 1 WEEK BEFORE SURGERY lisinopriL-hydrochlorothiazide (PRINZIDE,ZESTORETIC) 20-12.5 mg per tablet Take 1 (one) tablet by mouth daily . Continue multivitamin (THERAGRAN) per tablet Take 1 (one) tablet by mouth daily . STOP 1 WEEK BEFORE SURGERY multivitamin with minerals tablet Take 1 (one) tablet by mouth daily . STOP 1 WEEK BEFORE SURGERY zinc gluconate 50 mg tablet Take 1 (one) tablet (50 mg total) by mouth daily . STOP 1 WEEK BEFORE SURGERY STOP antiinflammatory medications such as Advil, Motrin, Ibuprofen, Naproxen, Aleve, Dominique Pomerene, Pepto-Bismol, Anacin, Diclofenac, Voltaren, Daypro, Etodolac, Ketoprofen, Piroxicam, Relafen, Nabumetone, etc. Also discontinue Vitamin C, Vitamin E, Ezel-3 Fatty Acid, Fish Oil or Lovaza, and all herbal medications DIRECTED BY SURGEON. Tylenol (acetaminophen) is acceptable(unless you have an allergy to this medication ), but be careful to follow the label directions and do not use with other pain medications. On the morning of surgery, with as little water as possible, ONLY take the medications listed abovein the column Take the morning of surgery. If you are using Eye Drops or Inhalers, please bring them to the hospital. Patient Instructions for [facility]: Prior to surgery: Surgeon's office will contact you with the scheduled time of your surgery. You may use the [employer] parking available at the Main Entrance One family member may accompany you back into the Pre-Op Area. Do not eat or drink anything after midnight or as directed, including gum, mints, and cough drops. Unless you were instructed and given Boost drink instructions. No smoking after midnight. No chewing tobacco after midnight. No alcohol 24 hours prior to your surgery. Please take any medications you have been instructed to take the morning of your surgery with smallsips of water. Please be sure to wear comfortable, appropriate clothing. Please remove all jewelry and piercing's, including wedding rings. Leave all valuable items at home. Shower using anti-bacterial soap or as advised by your Surgeon's office Do not apply any makeup or lotions. Remove all nail turkmen for surgeries involving extremities. Please remember to bring both your insurance card and a photo ID with you on the day of surgery. After your surgery: If you are having outpatient surgery - you must have a licensed dedicated local truck driver to take you home. The expectation is that this dedicated local truck driver will remain at the hospital for the duration of your procedure. You are advised to have a family member with you for at least 24 hours after being under Anesthesia. If you have sleep apnea and have a CPAP/BIPAP mask, please bring it with you the day of surgery. documented in this [id number] Note* Pre-Procedure Instructions - Maddy Gaytan RN - 12/10/2023 8:52 AM EST Preoperative Medication Instructions In preparation for surgery please continue all of your current medications with the following changes: Active Home Medications Medication Sig Take Last Dose On Take Morning of Surgery Comment(s) ferrous sulfate 325 (65 FE) MG tablet Take 1 (one) tablet (325 mg total) by mouth daily with breakfast . lisinopriL-hydrochlorothiazide (PRINZIDE,ZESTORETIC) 20-12.5 mg per tablet Take 1 (one) tablet by mouth daily . multivitamin (THERAGRAN) per tablet Take 1 (one) tablet by mouth daily . multivitamin with minerals tablet Take 1 (one) tablet by mouth daily . zinc gluconate 50 mg tablet Take 1 (one) tablet (50 mg total) by mouth daily . meloxicam (MOBIC) 15 MG tablet Take 1 (one) tablet (15 mg total) by mouth daily . (Patient not taking: Reported on 12/10/2023 .) STOP antiinflammatory medications such as Advil, Motrin, Ibuprofen, Naproxen, Aleve, Dominique Pomerene, Pepto-Bismol, Anacin, Diclofenac, Voltaren, Daypro, Etodolac, Ketoprofen, Piroxicam, Relafen, Nabumetone, etc. Also discontinue Vitamin C, Vitamin E, Ezel-3 Fatty Acid, Fish Oil or Lovaza, and all herbal medications DIRECTED BY SURGEON. Tylenol (acetaminophen) is acceptable(unless you have an allergy to this medication ), but be careful to follow the label directions and do not use with other pain medications. On the morning of surgery, with as little water as possible, ONLY take the medications listed abovein the column Take the morning of surgery. If you are using Eye Drops or Inhalers, please bring them to the hospital. Patient Instructions for [facility]: Prior to surgery: Surgeon's office will contact you with the scheduled time of your surgery. You may use the [employer] parking available at the Main Entrance One family member may accompany you back into the Pre-Op Area. Do not eat or drink anything after midnight or as directed, including gum, mints, and cough drops. Unless you were instructed and given Boost drink instructions. No smoking after midnight. No chewing tobacco after midnight. No alcohol 24 hours prior to your surgery. Please take any medications you have been instructed to take the morning of your surgery with smallsips of water. Please be sure to wear comfortable, appropriate clothing. Please remove all jewelry and piercing's, including wedding rings. Leave all valuable items at home. Shower using anti-bacterial soap or as advised by your Surgeon's office Do not apply any makeup or lotions. Remove all nail turkmen for surgeries involving extremities. Please remember to bring both your insurance card and a photo ID with you on the day of surgery. After your surgery: If you are having outpatient surgery - you must have a licensed dedicated local truck driver to take you home. The expectation is that this dedicated local truck driver will remain at the hospital for the duration of your procedure. You are advised to have a family member with you for at least 24 hours after being under Anesthesia. If you have sleep apnea and have a CPAP/BIPAP mask, please bring it with you the day of surgery.If you have sleep apnea and have a CPAP/BIPAP mask, please bring it with you the day of surgery. Pt does not report any of the following: Ascites Fluid restriction: CHF, ESRD, [place]'s, Insulin pump for blood glucose control difficulty swallowing Neurological disease NPO due to alternative nutrition or IV nutrition Achalasia Severe gastroparesis Hiatal Hernia Severe GERD Partial or Total gastrectomy Gastric resection History of whipple procedure requiring jejunostomy tube placement Pt is a candidate for carb loading drink process. 3-8oz boost breeze given with instructions [id number] History of Present illness Narrative* Geovanni Elam, PT - 12/08/2023 4:45 PM EST [facility] OUTPATIENT REHABILITATION DAILY TREATMENT NOTE Today's Date 12/08/2023 Patient Name: Devyn Corona Date of : 1980 Current Visit #: 5 Authorized Visits: 199 Case Name: Right Knee OA History: Pre-Treatment Pain Scale: 6 Symptoms: gradually improved Functional Diagnosis: 1. Primary osteoarthritis of right knee Clinical Information: Subjective: Pt reports significantly increased pain today. The pain is constant and very sharp at the tibial plateau. She is noticing increased hip pain d/t gait compensation as well. Objective Treatments: Physical Therapy Exercise Log - 12/08/23 1645 OTHER Precautions/Contraindications Supervising PT: Mat - Right TKR Prehab Notes visit 4: 4:42 - 5:26 Therapeutic Exercise ([id number]) Parameters scifit 5' lvl 4 Intervention calf stretch on wedge / HS stretch on box 3x20 Parameters rockerboard fwd/lat x15 Intervention BOSU lunges x10 alt. - NT Parameters steamboats L3 x10 bilat. Intervention shuttle squats 75# x15, SL 43# x15 - NT Parameters heel slides x10 - NT Intervention HS curls RTB x20 Parameters lateral side steps 2 rounds - NT Intervention TKE ball on wall / prater tube 10x5 Parameters oscillations at EOT x5 mins Modalities Modalities Vasopneumatic Treatment Parameters 10' 34 degrees med PT Treatment Times Therex Total Time 30 Modalities Total Time 10 Direct Treatment Time 40 Total Treatment Time 44 Goals: Physical Therapy Ortho Goals: MOBILITY: Patient will be able to ambulate for 1 hour in community without difficulty in 4 weeks. MOBILITY: Patient will be able to ambulate on uneven surfaces without difficulty in 4 weeks. MOBILITY: Patient will be able to ascend/descend stairs reciprocally without difficulty in 4 weeks. IMPAIRMENT: Improve pain from 9/10 to <3/10 during prolonged standing, walking and negotiating uneven surfaces in 4 weeks OTHER: Patient will increase FOTO score from 38 to at least 50 to show MDC/MCII and expected functional outcome in 4 weeks. OTHER: Patient will be able to properly demonstrate independence with HEP in 1 week. Patient Education: Diagnosis and recovery specific education and Pain Management with patient verbalized understanding. Post-Treatment Pain Scale: 1 Assessment: Patient had an expected response to treatment. Skilled Intervention demonstrated by modifications of treatment per exercise log including decreased intensity and modalities as indicated and safety interventions per exercise log. Progress towards goals unexpected due to unstable medical presentation. Plan for Next Visit: Discharge Geovanni Elam PT State License, [id number] documented in this [id number] History of Present illness Narrative* Geovanni Elam, GEETHA - 12/01/2023 4:45 PM EST [facility] OUTPATIENT REHABIL[facility]ATION DAILY TREATMENT NOTE Today's Date 12/01/2023 Patient Name: Devyn Corona Date of : 1980 Current Visit #: 4 Authorized Visits: 199 Case Name: Right Knee OA History: Pre-Treatment Pain Scale: 2 Symptoms: no change Functional Diagnosis: 1. Primary osteoarthritis of right knee Clinical Information: Subjective: Pt reports her usual mild pain upon arrival. She reports increased pain following last session but the pain had eased by morning. Objective Treatments: Physical Therapy Exercise Log - 12/01/23 1647 OTHER Precautions/Contraindications Supervising PT: Mat - Right TKR Prehab Notes visit 3: 4:46 - 5:28 Therapeutic Exercise ([id number]) Parameters scifit 5' lvl 4 Intervention calf stretch on wedge / HS stretch on box 3x20 Parameters rockerboard fwd/lat x15 Intervention BOSU lunges x10 alt. Parameters steamboats L3 x10 bilat. Intervention shuttle squats 75# x15, SL 43# x15 Parameters heel slides x10 Intervention HS curls RTB x20 Parameters lateral side steps 2 rounds Intervention TKE ball on wall / prater tube 10x5 Modalities Modalities Vasopneumatic Treatment Parameters 10' 34 degrees med - NT PT Treatment Times Therex Total Time 42 Direct Treatment Time 42 Total Treatment Time 42 Goals: Physical Therapy Ortho Goals: MOBILITY: Patient will be able to ambulate for 1 hour in community without difficulty in 4 weeks. MOBILITY: Patient will be able to ambulate on uneven surfaces without difficulty in 4 weeks. MOBILITY: Patient will be able to ascend/descend stairs reciprocally without difficulty in 4 weeks. IMPAIRMENT: Improve pain from 9/10 to <3/10 during prolonged standing, walking and negotiating uneven surfaces in 4 weeks OTHER: Patient will increase FOTO score from 38 to at least 50 to show MDC/MCII and expected functional outcome in 4 weeks. OTHER: Patient will be able to properly demonstrate independence with HEP in 1 week. Patient Education: HEP Adherence and Diagnosis and recovery specific education with patient verbalized understanding. Post-Treatment Pain Scale: 2 Assessment: Patient had an expected response to treatment. Skilled Intervention demonstrated by modifications of treatment per exercise log including increased mobility and safety interventions per exercise log. Progress towards goals unexpected due to unstable medical presentation. Plan for Next Visit: Treatment Visit with focus on strength and stability as tolerated Geovanni Elam PT State License, [id number] documented in this [id number] History of Present illness Narrative* Geovanni Elam, PT - 11/26/2023 4:45 PM EST [facility] OUTPATIENT REHABIL[facility]ATION DAILY TREATMENT NOTE Today's Date 11/26/2023 Patient Name: Devyn Corona Date of : 1980 Current Visit #: 3 Authorized Visits: 199 Case Name: Right Knee OA History: Pre-Treatment Pain Scale: 3 Symptoms: gradually improved Functional Diagnosis: 1. Primary osteoarthritis of right knee Clinical Information: Subjective: Pt reports ongoing pain mild-moderate throughout the day. She continues to report bilateral hip pain as well as noticing increased medial collapse of the knee Objective Treatments: Physical Therapy Exercise Log - 11/26/23 1651 OTHER Precautions/Contraindications Supervising PT: Mat - Right TKR Prehab Notes visit 2: 4:50 - 5:28 Therapeutic Exercise ([id number]) Parameters scifit 5' lvl 3 Intervention calf stretch on wedge / HS stretch on box 3x20 Parameters rockerboard fwd/lat x15 Intervention BOSU lunges x10 alt. Parameters steamboats L3 x10 bilat. Intervention shuttle squats 75# x15 Parameters heel slides x10 Intervention HS curls RTB x20 Parameters lateral side steps 2 rounds Intervention TKE ball on wall / prater tube 10x5 Parameters -- Additional Exercises Add more exercises? -- Modalities Modalities Vasopneumatic Treatment Parameters 10' 34 degrees med - NT PT Treatment Times Therex Total Time 38 Direct Treatment Time 38 Total Treatment Time 38 Goals: Physical Therapy Ortho Goals: MOBILITY: Patient will be able to ambulate for 1 hour in community without difficulty in 4 weeks. MOBILITY: Patient will be able to ambulate on uneven surfaces without difficulty in 4 weeks. MOBILITY: Patient will be able to ascend/descend stairs reciprocally without difficulty in 4 weeks. IMPAIRMENT: Improve pain from 9/10 to <3/10 during prolonged standing, walking and negotiating uneven surfaces in 4 weeks OTHER: Patient will increase FOTO score from 38 to at least 50 to show MDC/MCII and expected functional outcome in 4 weeks. OTHER: Patient will be able to properly demonstrate independence with HEP in 1 week. Patient Education: Quality of movement and Diagnosis and recovery specific education with patient verbalized understanding. Post-Treatment Pain Scale: 3 Assessment: Patient had an expected response to treatment. Skilled Intervention demonstrated by modifications of treatment per exercise log including increased intensity, increased mobility, and increased volume and safety interventions per exercise log. Progress towards goals unexpected due to unstable medical presentation. Plan for Next Visit: Treatment Visit with focus on strengthening as tolerated Geovanni Elam PT State License, [id number] documented in this [id number] History of Present illness Narrative* Trish Adhikari PTA - 11/24/2023 4:45 PM EST [facility] OUTPATIENT REHABIL[facility]ATION DAILY TREATMENT NOTE Today's Date 11/24/2023 Patient Name: Devyn Corona Date of : 1980 Current Visit #: 2 Authorized Visits: 199 Case Name: Right Knee OA History: Pre-Treatment Pain Scale: 4 Symptoms: gradually worsened Functional Diagnosis: 1. Primary osteoarthritis of right knee Clinical Information: Subjective: Her hips are really bothering her more since she's walking differently on her R leg. Objective good tolerance to PRE's without sx increase. Added vaso with decreased sx's Treatments: Physical Therapy Exercise Log - 11/24/23 1720 OTHER Precautions/Contraindications Supervising PT: Mat - Right TKR Prehab Notes visit 1: 4:43-5:20 Therapeutic Exercise ([id number]) Intervention -- Parameters scifit 5' lv 2.5 Intervention stair stretches Parameters rockerboard Intervention BOSU lunges Parameters steamboats Intervention shuttle Parameters heel slides x10 Intervention HS curls RTB x20 Parameters lateral side steps 2 rounds Intervention quad sets x20 Parameters supine hip abd/add GTB x20 Additional Exercises Add more exercises? Yes Modalities Modalities Vasopneumatic Treatment Parameters 10' 34 degrees med PT Treatment Times Therex Total Time 25 Modalities Total Time 10 Direct Treatment Time 35 Total Treatment Time 35 Goals: Physical Therapy Ortho Goals: MOBILITY: Patient will be able to ambulate for 1 hour in community without difficulty in 4 weeks. MOBILITY: Patient will be able to ambulate on uneven surfaces without difficulty in 4 weeks. MOBILITY: Patient will be able to ascend/descend stairs reciprocally without difficulty in 4 weeks. IMPAIRMENT: Improve pain from 9/10 to <3/10 during prolonged standing, walking and negotiating uneven surfaces in 4 weeks OTHER: Patient will increase FOTO score from 38 to at least 50 to show MDC/MCII and expected functional outcome in 4 weeks. OTHER: Patient will be able to properly demonstrate independence with HEP in 1 week. Patient Education: Quality of movement with patient demonstrated understanding. Post-Treatment Pain Scale: 0 Assessment: Patient had an expected response to treatment. Skilled Intervention demonstrated by modifications of treatment per exercise log including increased load and safety interventions per exercise log. Progress towards goals as expected. Plan for Next Visit: Treatment Visit with focus on strengthening and pain control Trish Adhikari PTA STATE LICENSE, [id number] documented in this [id number] History of Present illness Narrative* Geovanni Elam PT - 11/19/2023 4:45 PM EST [facility] Evaluation Today's Date 11/19/2023 Patient Name: Devyn Corona Date of : 1980 Case Name: Right Knee OA Functional Diagnosis: 1. Osteoarthritis of right knee, unspecified osteoarthritis type Clinical Information: Subjective Referring Diagnosis: Right Knee OA Follow-up with physician: 12/11/2023 History of Present Illness Subjective History: Pt reports c/o chronic right knee progressively worsening since this past summer. She reports no known injury or trauma but is very active and used to run a lot. She states the knee is to the extent that she is noticing hip pain and pain in the left leg. She has been seeing a Chiropractor for her hip and back. She reports h/o arthroscopic surgery about 2 years ago as well as numerus other surgeries for ligament. She denies numbness/tingling in the LE. Previous Imaging: X-ray Pain Scale Pain location: knee Average Pain: 3/10 Pain at highest: 9/10 Aggravating factors: prolonged standing, walking, uneven surfaces, stairs Easing factors: rest/sitting, elevation, ice 24 Hour Symptom Behavior Morning Pain: gradual End of day pain: worse Personal Goals: Manage pain and swelling Improve strength and stability Functional Mobility Status Functional Limitations: limited mobility and standing Current Mobility Status: Home: independent Community: independent Bed Transfer: independent Car Transfer: independent Current Activity Level: active Premorbid Activity Level: very active Social Support: Synagogue, social, or cultural considerations to be made aware of before starting treatment: No Home Environment Current Home Environment: Setup: multi-level house Activities of Daily Living: independent with all Instrumental Activities of Daily Livingto be assessed Sleep Assessment Preferred sleep position: supine Sleep disturbance: Sleep Disturbance Red Flags: None Comments: Barriers to Care: None Synagogue, social, or cultural considerations to be made aware of before starting treatment: No Knee Right Knee Tenderness: patellar tendon Range of Motion: Flexion Active: 118 Extension Active: 2 (hyperextension) Muscle Strength: Flexion: 5 Extension: 5 Special Tests Stress Test (Varus): Negative Stress Test (Valgus): Negative Patellar Femoral Grind: Positive FOTO: 38 Ankle/Foot Right Ankle/Foot Right Ankle/Foot WFL Treatments: Physical Therapy Exercise Log - 11/19/23 3355 OTHER Precautions/Contraindications Supervising PT: Mat - Right TKR Prehab Notes Eval: 4:45 - 5:15 Therapeutic Exercise ([id number]) Intervention progress as tolerated: Parameters scifit / bike Intervention stair stretches Parameters rockerboard Intervention BOSU lunges Parameters steamboats Intervention shuttle PT Treatment Times Total Treatment Time 30 Goals: Physical Therapy Ortho Goals: MOBILITY: Patient will be able to ambulate for 1 hour in community without difficulty in 4 weeks. MOBILITY: Patient will be able to ambulate on uneven surfaces without difficulty in 4 weeks. MOBILITY: Patient will be able to ascend/descend stairs reciprocally without difficulty in 4 weeks. IMPAIRMENT: Improve pain from 9/10 to <3/10 during prolonged standing, walking and negotiating uneven surfaces in 4 weeks OTHER: Patient will increase FOTO score from 38 to at least 50 to show MDC/MCII and expected functional outcome in 4 weeks. OTHER: Patient will be able to properly demonstrate independence with HEP in 1 week. CPT Code 76379 Low 13119 Moderate 43197 High History 0 1-2 3+ Comorbidities: cardiac history, HTN, OA, and prior surgical history, Personal factors: chronicity or severity of the current condition Examination of body systems (elements of body structures & functions, activity limitations, and/or participation restrictions) 1-2 elements 3+ elements 4+ elements See below clinical impression Clinical Presentation Stable Evolving Unstable As evidenced by pt report of overall worsening of symtpoms over time Decision Making Low (FOTO >/= 69) Moderate (FOTO 34 - 68) High (FOTO </= 33) FOTO score= 38 Pt is a 43 y.o. female who presents to PT services with c/o chronic right knee pain. Upon assessment, pt has been found with the following impairments: decreased strength, antalgic gait, decreased stability, and pain. The documented impairments result in the following functional limitations: bundle cutter, regular PA/exercise, functional mobility, recreational activities, and quality of life. The pt would benefit from skilled PT services focused on the above listed impairments and limitations in order to safely progress pt to their desired level of function. Pt to be discharged from OP PT services if/when goals are met, if they fail to make progress with conservative management in PT, if their level of progress plateaus, or if they do not maintain compliance with attendance or HEP. At this time, it is my clinical judgment that services are medically necessary. Plan of Care Frequency of Visits: 2 times per week Duration: 4 weeks Interventions: Therapeutic Exercise (44613), Neuromuscular Re-Education (53709), Manual Therapy (68522), Electrical Stimulation - Unattended (92455), and Vasopneumatic (77099) Rehab Potential: poor Patient Education Provided Pt was educated on the benefits of therapy and importance of compliance with sessions and HEP for rehabilitation. Pt was also educated on treatment diagnosis, POC, and frequency/duration of treatment. Geovanni Elam, PT State License, [id number] documented in this [id number] History of Present illness Narrative* Tammy Silva, PANCHO - 11/12/2023 4:15 PM EST [facility] [address] [facility] [address] [facility] [id number] Chief Complaint Patient presents with Right Knee - Pain Devyn Corona returns to the office today for follow-up on her right knee. 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 Grade4 was found in the medial condyle well grade 3 was found in the tibial plateau and patella. We havecontinued to treat this conservatively with anti-inflammatory medications in addition to cortisone injections but unfortunately she only continues to have worsening of pain. She does have a special needs child at home and is concerned that something will happen to her knee while taking care of him.She has pain on a daily basis. She enjoys working out but over the past year or 2 she has really had to cut back and modify the activities that she is doing. She can no longer run. She even has to modify yoga because of the right knee. She has tried to hold off as long as she can but unfortunately the right knee just continues to worsen and she is miserable. She would like to discuss a right total knee replacement. The patient's past medical history, surgical history, social history, family history, medications and allergies were reviewed with the patient today and are available in the chart for further review. No Known Allergies Current Outpatient Medications: cyanocobalamin, vitamin B-12, 1,000 mcg/mL Drop, Take by mouth ., Disp: , Rfl: ferrous sulfate 325 (65 FE) MG tablet, Take 1 (one) tablet (325 mg total) by mouth daily with breakfast ., Disp: , Rfl: Lactobac no.41/Bifidobact no.7 (PROBIOTIC-10 ORAL), Take by mouth daily ., Disp: , Rfl: lisinopriL-hydrochlorothiazide (PRINZIDE,ZESTORETIC) 20-12.5 mg per tablet, Take 1 (one) tablet by mouth daily ., Disp: , Rfl: loratadine (CLARITIN) 5 mg chewable tablet, Chew and Swallow 1 (one) tablet (5 mg total) ., Disp: ,Rfl: meloxicam (MOBIC) 15 MG tablet, Take 1 (one) tablet (15 mg total) by mouth daily ., Disp: 30 tablet, Rfl: 11 multivitamin (THERAGRAN) per tablet, Take 1 (one) tablet by mouth daily ., Disp: , Rfl: omega-3 fatty acids-fish oil 340-1,000 mg cap, Take 1 (one) capsule by mouth daily ., Disp: , Rfl: Past Medical History: Diagnosis Date Arthritis Bradycardia Hypertension 2020 Past Surgical History: Procedure Laterality Date ARTHROSCOPY KNEE Right 10/07/2019 Procedure: Right knee arthroscopy with screw removal, partial meniscectomy, abrasion chondroplasty ; Surgeon: Melody Fuentes MD; Location: Main OR; Service: Orthopedic BREAST AUGMENTATION Bilateral CT COLONOSCOPY 01/01/2021 CT COLONOSCOPY KNEE SURGERY X3 Social History Socioeconomic History Marital status: Tobacco Use Smoking status: Never Smokeless tobacco: Never Substance and Sexual Activity Alcohol use: Yes Alcohol/week: 1.0 standard drink of alcohol Types: 1 Glasses of wine per week Comment: occasional-- states drinking 4 beers last night Drug use: No ROS: Review of Systems Musculoskeletal: Positive for arthralgias, gait problem, joint swelling and myalgias. PE: Physical Exam Musculoskeletal: Right knee: Effusion present. Instability Tests: Medial Moose test positive. Lateral Moose test negative. ORTHO: Right Knee Exam Muscle Strength The patient has normal right knee strength. Tenderness The patient is experiencing tenderness in the lateral joint line and medial joint line. Range of Motion Extension: normal Flexion: 130 (with pain.) Tests Moose: Medial - positive Lateral - negative Varus: negative Valgus: negative Drawer: Anterior - negative Posterior - negative Other Erythema: absent Scars: present Sensation: normal Pulse: present Swelling: mild Effusion: effusion present Imaging: R Knee: Prior ACL repair. Mlkrxoao-ki-cvlajl degeneration without acute fracture or dislocation most pronounced in the medial compartment. Assessment/Plan: After examination and reviewing of the patient x-ray images we discussed continuedtreatment options. She has exhausted conservative measures such as OTC pain medications in additionto prescription strength anti- inflammatories as well as multiple cortisone injections but unfortunately none of those give her pain and symptom relief. In fact, she continues to worsen. Given the fact that in 2019, grade III and IV chondromalacia was found throughout the knee, I did explain to her that a total knee replacement would be of benefit to her. She wishes to proceed with a Hai robotic assisted total knee replacement with Dr. Fuentes. A CT scan will be ordered prior to her surgery for further diagnostic evaluation and surgical planning. I am starting her on a course of outpatient physical therapy also I do not believe this will be of any benefit to her. I am concerned that this will actually worsen the knee. The office will contact her to schedule her surgery in approximately 10 to 14 days. I am more than happy to see this eduardo lady back in the office if needed prior to hersurgery. documented in this [id number] Discharge summary Author Can Kimble [facility] July 28, 2023 9:04pm Note Date/Time July 28, 2023 6: 07pm [facility] Medical Records Department [address] [place] [address] Emergency Department Summary 07/28/23 MR#: [id number] Acct: [id number] Name: DEVYN CORONA Rep #:[id number] : 1980 43 From: Can Kimble MD PCP: Dr. Nupur Garcia MD Status:RE G ER Location: ED HPI History of Present Illness Chief Complaint: Abd Pain Detail of Chief Complaint: Abrupt onset of right-sided abdominal pain on Thursday Informant: patient Onset/Context/Timing Onset: Days (July 25) Context: Sudden Onset Timing: Intermittent Quality: Pain Location: Right side abdomen to inguinal area Current Severity: Mild Maximum Severity: Severe Worsened by: Nothing Relieved by: Nothing Associated Symptoms Associated Symptoms: Nausea and vomiting on Thursday and not feeling well since with urinary sym Narrative Narrative: Patient is a 43-year-old female status post hysterectomy due to uterine fibroidswho presents because of pending thought she needed to be evaluated because she has appendicitis. Patient had abrupt onset of pain that she is never experienced before on Thursday, July 25. Patient denies fever or chills. She does report urgency, dysuria and frequency. She denies history of renal urolithiasis. There is no family history of renal or ureterolithiasis. She denies back pain. She denies vaginal bleeding or discharge. There is no history of trauma. She has not noted any skin lesions. Prior similar symptoms: No Recent Illness/Hospitalization: No PFSH PFS Medical History Anemia Bradycardia Depression [place] (dyspnea on exertion) Essential (primary) hypertension Fatigue GERD (gastroesophageal reflux disease) Migraine Home Medications cyanocobalamin (vitamin B-12) 1,000 mcg capsule 1,000 mcg PO DAILY 07/07/22 [History Last Taken Unknown] ferrous sulfate 325 mg (65 mg iron) tablet 325 mg PO DAILY 07/07/22 [History Last Taken Unknown] loratadine 5 mg chewable tablet (Children's Loratadine) 5 mg PO QAM PRN allergy symptoms 07/07/22 [History Last Taken Unknown] multivitamin with minerals (Hair,Skin and Nails tablet) 1 tab PO DAILY 07/07/22 [History Last Taken Unknown] omega-3 fatty acids 1,000 mg capsule 1,000 mg PO DAILY 07/07/22 [History Last Taken Unknown] cyclobenzaprine 10 mg tablet 10 mg PO TID PRN Muscle Spasm #20 TABLETS 06/02/23 [Rx Last Taken Unknown] hydrocodone-acetaminophen 5-325mg 5mg-325mg 1 tab PO Q4H PRN PRN Pain 2 days #15TABLETS 06/02/23 [Rx Last Taken Unknown] naproxen 500 mg tablet 500 mg PO BID #14 tabs 06/02/23 [Rx Last Taken Unknown] lisinopril 20 mg-hydrochlorothiazide 12.5 mg tablet See Rx Instructions .Route .COMPLEX #90 tabs 07/22/23 [Rx Last Taken Unknown] famotidine 20 mg tablet (Pepcid) 20 mg PO BID #10 tabs 07/28/23 [Rx Last Taken Unknown] Allergy/AdvReac Type Severity Reaction Status Date / Time No Known Allergies Allergy Verified 07/28/23 17:48 Family History Father Cancer Lung Son 5p minus syndrome Surgical History History of breast augmentation (~2009) History of hysterectomy (~04/16/21) Hx of abdominoplasty Hx of knee surgery Hx of knee surgery Hx of tubal ligation Social History (Updated 07/28/23 @ 18:[address] Can Kimble MD) household members: spouse Smoking Status: Never smoker alcohol intake: current alcohol intake frequency: holidays/special occasions only substance use type: does not use caffeine: Yes Type: coffee Number of servings: 1 ROS ROS ED Constitutional Constitutional ED: Denies chills, fever(s), subjective or sweats Eyes Eyes: Denies blurry vision or change in vision ENT ENT ED: Denies ear pain or rhinorrhea Cardiovascular Cardiovascular: Denies chest pain or palpitations Respiratory/Chest Respiratory/Chest: Denies cough, dyspnea or dyspnea on exertion Gastrointestinal Gastrointestinal: Reports abdominal pain, nausea and vomiting; Denies constipation, diarrhea or melena Genitourinary Genitourinary ED: Reports dysuria and urinary frequency; Denies hematuria Musculoskeletal Musculoskeletal: Denies arthralgias, back pain, myalgias or neck pain Integumentary Denies rash Neurologic Neurologic: Denies headache(s) or paresthesias Psychiatric Psychiatric: Denies anxiety or depression Endocrine Endocrinology: Denies cold intolerance or heat intolerance Hematologic/Lymphatic Hematologic/Lymphatic: Reports systems reviewed and no addt'l complaints, exceptas documented EXAM Physical Exam Const Vital Signs: 07/28/23 17:48 07/28/23 19:51 Temperature 97.4 F L Temperature Source Temporal Pulse Rate 70 54 L Respiratory Rate 18 16 Blood Pressure 151/93 H 131/85 H Blood Pressure Mean 112 100 Pulse Ox 97 97 Oxygen Delivery Method Room Air Positive well nourished and well developed Constitutional Narrative: Patient states the pain is presently a 4. She declined pain medicine. General Appearance ED: well developed and NAD; Negative for cyanotic, diaphoretic or pallor HEENT Reports moist mucous membranes HEENT Narrative: Head is atraumatic and normocephalic. Ears are normal. Nares patent. Mucosa is moist. Eyes PERRL and EOMs intact bilaterally General Eye ED: Negative for pale conjunctiva or scleral icterus Neck no lymphadenopathy, supple and no JVD Chest Wall inspection of chest normal and palpation of chest normal Resp normal respiratory effort and clear to auscultation bilaterally Cardio regular rate, regular rhythm, S1 normal heart sound, S2 normal heart sound and no murmurs GI no masses; Negative for non-tender, non-distended or hepatosplenomegaly Inspection: abdominal distention Auscultation: hyperactive bowel sounds Palpation: soft and tender RLQ Back/Spine no CVA tenderness Lumbar Spine / Lower Back: Negative for lumbar spinal tenderness Extremity normal to inspection General Extremety ED: Negative for edema or tenderness General Extremity: Negative for edema Neuro oriented x3, CN's II-XII intact bilaterally and no sensory deficits noted Sensorium / Orientation: alert Motor Exam: strength 5/5 throughout Psych mental status grossly normal Skin no rashes or lesions noted, no wounds and skin turgor normal General Skin Exam: elasticity normal; Negative for jaundice or pallor MDM MDM MDM Narrative Medical decision making narrative: Differential diagnoses to be mesenteric adenitis, appendicitis, ureterolithiasis. Since she is also complaining of urinary symptoms need to rule out complicated cystitis versus pyelonephritis CT without contrast of the abdomen pelvis was ordered as well as blood work and UA. Patient declined pain medicine. Lab Data Attestation: I reviewed the patient's lab results. Lab results narrative: CBC reveals slight shift otherwise unremarkable. Basic metabolic panel is. UA is normal. Labs: Laboratory Results - last 24 hr 07/28/23 07/28/23 18:05 18:10 WBC 5.7 RBC 4.57 Hgb 13.5 Hct 40.6 MCV 88.8 MCH 29.5 MCHC 33.3 RDW Std Deviation 40.2 RDW Coeff of Devante 12.3 Plt Count 222 MPV 9.5 Immature Gran % (Auto) 0.200 Neut % (Auto) 75.7 H Lymph % (Auto) 14.1 L [place] % (Auto) 7.8 Eos % (Auto) 1.9 Baso % (Auto) 0.3 Absolute Neuts (auto) 4.3 Absolute Lymphs (auto) 0.81 L Nucleated RBC % 0 Sodium 135 L Potassium 3.4 L Chloride 102 Carbon Dioxide 30.0 Anion Gap 3 L BUN 16 Creatinine 0.91 Estim Creat Clear Calc 73.21 Est GFR (MDRD) Af Amer 88 Est GFR (MDRD) Non-Af 72 BUN/Creatinine Ratio 17.6 Glucose 97 Calcium 8.5 Urine Color Yellow Urine Clarity Clear Urine pH 7.0 Ur Specific [place] 1.010 Urine Protein Negative Urine Glucose (UA) Normal Urine Ketones Negative Urine Occult Blood Negative Urine Nitrite Negative Urine Bilirubin Negative Urine Urobilinogen Normal Ur Leukocyte Esterase Negative Urine RBC 0 SEEN Urine WBC 0 SEEN Ur Squamous Epith Cells 0 SEEN Urine Bacteria 0 SEEN Urine Mucus 0 SEEN Radiography Diagnostic Testing: Clinical Impression(s) from Imaging Studies Abdomen/Pelvis CT 07/28/23 18:05 IMPRESSION: 1. Nonspecific fluid-filled loops of bowel, consider enteritis. 2. Nonobstructing left renal stone. No obstructive uropathy. Electronically Signed: Elizabeth Berg MD at 18:49 EDT Reading Location ID and State: [id number] / Tel , Service support , CT of the abdomen pelvis with out contrast reveals a left renal calculi. The liver and gallbladder are unremarkable. There is an hepatic cyst noted. There is no obvious inflammatory changes involving the appendix. There appears to be a stone in the bladder. Awaiting formal read by radiologist. Treatment and Re-Evaluation :: Patient's erythematous rash first noted on the neck is that spread to the chin and bilateral cheek region. The rash is slightly raised. It is very warm to hot to touch. It is not pruritic. We will treat with IV Pepcid. Patient was reassessed at 2100. Patient's rash is not as red. The rash does not feel as warm. Will discharge with short course of Pepcid. Discharge Plan Triage Chief Complaint: Abd Pain ED Provider: Can Kimble Dx/Rx/DC Orders Clinical Impression: Right lower quadrant abdominal pain, Essential (primary) hypertension, Enteritis, Erythematous rash, Renal calculus, left Instructions: How the Colon Works, ED Erythema, ED Kidney Stone Undescended No ... Prescriptions: New famotidine [Pepcid] 20 mg tablet 20 mg PO BID Qty: 10 0RF No Action cyanocobalamin (vitamin B-12) 1,000 mcg capsule 1,000 mcg PO DAILY ferrous sulfate 325 mg (65 mg iron) tablet 325 mg PO DAILY Children's Loratadine 5 mg tablet,chewable 5 mg PO QAM PRN (Reason: allergy symptoms) Hair,Skin and Nails Tablet 1 tab PO DAILY omega-3 fatty acids 1,000 mg capsule 1,000 mg PO DAILY cyclobenzaprine [cyclobenzaprine] 10 mg tablet 10 mg PO TID PRN (Reason: Muscle Spasm) Qty: 20 0RF hydrocodone-acetaminophen [hydrocodone-acetaminophen] 5-325 mg tablet 1 tab PO Q4H PRN PRN (Reason: Pain) 2 Days Qty: 15 0RF naproxen 500 mg tablet 500 mg PO BID Qty: 14 0RF lisinopril-hydrochlorothiazide 20-12.5 mg tablet See Rx Instructions .ROUTE .COMPLEX Qty: 90 3RF Dose Instruction: take 1 tablet by mouth once daily Rx Instructions: take 1 tablet by mouth once daily Primary Care Provider: Nupur Garcia Referrals: Nupur Garcia MD [Primary Care Provider] - 3-5 Days if not improving Disposition Disposition: Home, Self Care What to do if you have Problems For any increased pain, shortness of breath, bleeding, nausea or vomiting, chestpain, or any unexpected problems, contact your Primary Care Provider. Call [facility] ([phone]) or report to the closest Emergency Room. Call 911 if necessary. 07/28/232103 <Electronically signed by Can Kimble MD> Cosigner Signature (if applicable): CC: Dr. Nupur Garcia MD ~ Signed [facility] Work Phone: [phone]) 204-348307-27-2023 History of Present illness Narrative* Tammy Silva, [facility] - 05/21/2023 9:21 PM EDTAssociated Order(s): LG Jt Injection/Arthrocentesis: R knee Post-Procedure Diagnose(s): S/P right knee arthroscopy; Knee instability, right 05/21/23 Devyn Corona 1980 HISTORY of Present Illness: Devyn Corona is a 43 y.o. year old female that presents today with right knee pain. Devyn Corona has had injections in the past. Last injection to right/left knee was 03/19/22 and they tolerated well. They have been treated w/ oral medications & injections. Patient denies new injury to the knees. The following portions of the patient's history were reviewed and updated as appropriate: allergies, current medications, past surgical history and problem list. PAST MEDICAL HISTORY The patient's Medications, Allergies, Past Surgical History, Medical History, Family History and Social History were reviewed and can be found in their online medical record, and I have reviewed thisinformation with Devyn Corona at the time of their visit. They are significant for Past Medical History: Diagnosis Date Arthritis Bradycardia Hypertension 2019 IMAGING Notes: none new today. Reviewed from last visit. IMPRESSION And PLAN: Cortisone injection today. Will follow up in 3 months if effective. Call if no improvement in 10 days. 1. S/P right knee arthroscopy 2. Knee instability, right LG Jt Injection/Arthrocentesis: R knee Performed by: Tammy Silva CNP Authorized by: Tammy Silva CNP CPT 40400 - Large Joint Arthrocentesis: Consent given by: Patient Time out: Immediately prior to the procedure a time out was called Physician or proceduralist has discussed critical or nonroutine steps, procedure duration and anticipated blood loss: Yes Supporting Documentation: Indications: Pain, joint swelling and diagnostic evaluation Procedure Details: Location: Knee Site: R knee Prep: patient was prepped and draped in usual sterile fashion Needle size: 22 G Approach: Anterolateral Medications: 40 mg triamcinolone acetonide 40 mg/mL Anesthetic used: Lidocaine 1% Anesthetic amount (mL): 2 Patient tolerance: Patient tolerated the procedure well with no immediate complications Tammy Silva CNP documented in this [id number] Telephone encounter Note* Telephone Encounter - Melani Beauchamp PA-C - 04/15/2023 9:57 AM EDT Spoke to patient and relayed results of CT - unremarkable. She states that she is better, but stillhaving gut issues. States that Dr. Phoenix referred her to a functional medicine provider, and she will work with them to continue evaluation. Otherwise, no questions/concerns at this time. F/u PRN. [id number] Miscellaneous Notes* Telephone Encounter - Melani Beauchamp PA-C - 04/15/2023 9:57 AM EDT Spoke to patient and relayed results of CT - unremarkable. She states that she is better, but stillhaving gut issues. States that Dr. Phoenix referred her to a functional medicine provider, and she will work with them to continue evaluation. Otherwise, no questions/concerns at this time. F/u PRN. documented in this [facility]06-08-2023 [facility] Advanced Laparoscopic Surgery, GERD Evaluation Follow-up Visit Patient Name: Devyn Corona Date: 04/02/23 Referring Physician: No ref. provider found HPI: Devyn Corona is a 43 y.o. female who has undergone a work-up for epigastric pain, bloating, constipation and overall intestinal issues. The patient is here for a follow-up visit to discuss the results of testing and the surgical options to treat that patients reflux. Results are as follows: Gerd Workup Dates Results Referring Provider Dr. Garcia Initial Symptoms 02/19/23 Epigastric pain, dysphagia, bloating, chronic constipation UGI w/ Marshmalrichi/Bagel 03/17/23 No HH, no reflux, no dysmotility EGD 03/27/23 Gastritis, nodular mucosa of esophagus; path: Gómez NA Manometry NA RUQ US 03/17/23 Unremarkable HIDA 02/27/23 EF 85%, no reproduced abdominal pain Surgery Scheduled/Performed: Follow Up Appt: 04/02/23 Lizett Interval history: She has not had any recurrence of the bulging in the epigastrium. She still battles with constipation but does seem to be maybe a bit better. She had an EGD, path pending but nothing that would definitively explain her discomfort. We are awaiting pathology results. I personally reviewed the patient intake form with the patient. The ROS is negative except for what is listed in HPI. PMHx: Past Medical History: Diagnosis Date Abdominal pain Anemia Fatigue GERD (gastroesophageal reflux disease) Hypertension Liver cyst Uterine fibroid Viral illness PSHx: Past Surgical History: Procedure Laterality Date FEMINIZING AUGMENTATION MAMMOPLASTY 2011 HYSTERECTOMY 04/16/2021 [facility] XR ENDO COLONSCOPY W DILATATION KNEE SURGERY Bilateral ACL/MCL TEARS IN 1995,1997,1999,2018 PANNICULECTOMY (HISTORICAL) 2010 UPPER GASTROINTESTINAL ENDOSCOPY N/A 03/27/2023 Dr Phoenix/MARGARITO PFMHx: Family History Problem Relation Name Age of Onset Bradycardia Mother Lung cancer Father Alcohol abuse Father Other (SMOKER) Father ALL: No Known Allergies MEDS: Current Outpatient Medications Medication Sig Dispense Refill dicyclomine (Bentyl) 20 MG tablet Take 1 tablet (20 mg) by mouth 4 times daily (before meals and nightly). 120 tablet 1 lisinopril-hydroCHLOROthiazide 20-12.5 MG tablet Take 1 tablet by mouth daily. meloxicam (Mobic) 15 MG tablet Take 15 mg by mouth daily. Multiple Vitamins-Minerals (Hair/Skin/Nails) tablet Take by mouth. Multiple Vitamins-Minerals (multivitamin with minerals) tablet Take 1 tablet by mouth daily. No current facility-administered medications for this visit. SOCIAL Hx: Social History Socioeconomic History Marital status: Spouse name: Not on file Number of children: Not on file Years of education: Not on file Highest education level: Not on file Occupational History Not on file Tobacco Use Smoking status: Never Smokeless tobacco: Never Vaping Use Vaping Use: Never used Substance and Sexual Activity Alcohol use: Yes Comment: OCCASIONALLY Drug use: Never Sexual activity: Yes Partners: Male Other Topics Concern Not on file Social History Narrative Not on file Social Determinants of Health Financial Resource Strain: Not on file Food Insecurity: Not on file Transportation Needs: Not on file Physical Activity: Not on file Stress: Not on file Social Connections: Not on file Intimate Partner Violence: Not on file Housing Stability: Not on file ROS: General: negative for - chills, fatigue, fever or malaise Gastrointestinal: negative for - change in bowel habits, hemoptysis, hematemesis, hematochezia, dysphagia, nausea, vomiting, diarrhea, constipation, weight loss DIAGNOSTIC EVALUATION: Gerd Workup Dates Results Referring Provider Dr. Garcia Initial Symptoms 02/19/23 Epigastric pain, dysphagia, bloating, chronic constipation UGI w/ Marshmallow/Ariel 03/17/23 No HH, no reflux, no dysmotility EGD 03/27/23 Gastritis, nodular mucosa of esophagus; path: Gómez NA Manometry NA RUQ US 03/17/23 Unremarkable HIDA 02/27/23 EF 85%, no reproduced abdominal pain Surgery Scheduled/Performed: Follow Up Appt: 04/02/23 [place] Physical Examination: BP 132/80 (BP Location: Right arm, Patient Position: Sitting, BP Cuff Size: Adult) Pulse 69 Temp 36.7 ?C (98 ?F) (Temporal) Ht 5' 5 (1.651 m) Wt 156 lb (70.8 kg) BMI 25.96 kg/m? She stands Height: 5' 5 (165.1 cm) tall with a weight of Weight: 156 lb (70.8 kg) , resulting in a BMI of Body mass index is 25.96 kg/m?.. General: The patient is awake, alert, and oriented, and is in no apparent distress; normal affect Respiratory: Normal effort, no gross abnormal breath sounds Abdomen: Appropriate girth, non-distended, soft, no masses or hepatosplenomegaly Hernia: None appreicated Extremities: Ambulatory without assistance, no obvious deformities Skin: Warm, dry, intact; no obvious lesions or discoloration Assessment/Plan [place] (more content not included)...[facility]06-02-2023 Note Patient: Devyn Corona Procedure Summary Date: 03/27/23 Room / Location: [place] [address] / [facility] Gastroenterology Anesthesia Start: 1346 Anesthesia Stop: 1407 Procedure: EGD WITH BIOPSY Diagnosis: Dysphagia (Dysphagia [R13.10]) Providers: Matty Phoenix MD Responsible Provider: Marek Soto MD Anesthesia Type: MAC, TIVA ASA Status: 2 Anesthesia Type: MAC, TIVA Vitals Value Taken Time BP 108/59 03/27/23 1404 Temp 36.1 ?C (97 ?F) 03/27/23 1404 Pulse 46 03/27/23 1404 Resp 12 03/27/23 1404 SpO2 96 % 03/27/23 1404 Anesthesia Post Evaluation Patient location during evaluation: PACU Patient participation: complete - patient participated Level of consciousness: awake and alert Pain management: satisfactory to patient Airway patency: patent Dental Injury: no Cardiovascular status: acceptable, blood pressure returned to baseline and hemodynamically stable Respiratory status: acceptable and spontaneous ventilation Hydration status: acceptable Nausea/Vomiting: controlled No notable events documented. Patient can be discharged once all PACU criteria has been met.[facility]06-02-2023 NotePatient: Devyn Whisler Procedure Summary Date: 03/27/23 Room / Location: [place] [address] / [facility] Gastroenterology Anesthesia Start: 1346 Anesthesia Stop: 1407 Procedure: EGD WITH BIOPSY Diagnosis: Dysphagia (Dysphagia [R13.10]) Providers: Matty Phoenix MD Responsible Provider: Marek Soto MD Anesthesia Type: MAC, TIVA ASA Status: 2 Anesthesia Type: MAC, TIVA Vitals Value Taken Time BP 108/59 03/27/23 1404 Temp 36.1 ?C (97 ?F) 03/27/23 1404 Pulse 46 03/27/23 1404 Resp 12 03/27/23 1404 SpO2 96 % 03/27/23 1404 Anesthesia Post Evaluation Patient location during evaluation: PACU Patient participation: complete - patient participated Level of consciousness: awake Pain score: 0 Pain management: adequate Multimodal analgesia pain management approach Airway patency: patent Two or more strategies used to mitigate risk of obstructive sleep apnea Cardiovascular status: acceptable Respiratory status: acceptable Hydration status: acceptable No notable events documented. MIPS #430 PONV Patient did not receive an inhalational anesthetic (XX430) MIPS # 424 Perioperative Temperature Management Anesthesia time was less than 60 minutes (4256F) MIPS #477 Multimodal Pain Management Not emergent case Patient was not administered multimodal pain management (G2149) Patient reports no pain in PACU (G2149) MIPS #404 Anesthesiology Smoking Abstinence The patient is not a current smoker (e.g. cigarette, cigar, pipe, e-cigarette/vaping/marijuana) If no stop here (XX404) I completed my handoff to the receiving clinician during which we: 1. Identified the patient 2. Identified the responsible provider 3. Reviewed the pertinent medical history 4. Discussed the surgical course 5. Reviewed intra-op anesthesia management and issues during anesthesia 6. Set expectations for post-procedure period 7. Allowed opportunity for questions and acknowledgement of understanding.[facility] [id number] [facility] Patient Name: Devyn Corona Procedure Date: 03/27/2023 1:42 PM Gender: Female Date of : 1980 Age: 43 Admit Type: Outpatient Note Status: Finalized Endoscopist: Matty Phoenix MD, [id number] Procedure: Upper GI endoscopy Indications: Epigastric abdominal pain, Dysphagia Findings: Mild inflammation was found in the gastric antrum. Biopsies were taken with a cold forceps for Helicobacter pylori testing. Scattered mild mucosal changes characterized by nodularity and altered texture were found in the entire esophagus. Biopsies were taken with a cold forceps for histology, rule out EoE. Impression: - Gastritis. Biopsied. - Nodular, texture changed mucosa in the esophagus. Biopsied. Recommendation: - Patient has a contact number available for emergencies. The signs and symptoms of potential delayed complications were discussed with the patient. Return to normal activities tomorrow. Written discharge instructions were provided to the patient. - Resume previous diet. - Continue present medications. - Await pathology results. Referring MD: Nupur Garcia Medicines: Monitored Anesthesia Care Procedure: Pre-Anesthesia Assessment: - Prior to the procedure, a History and Physical was performed, and patient medications and allergies were reviewed. The patient's tolerance of previous anesthesia was also reviewed. The risks and benefits of the procedure and the sedation options and risks were discussed with the patient. All questions were answered, and informed consent was obtained. Prior Anticoagulants: The patient has taken no anticoagulant or antiplatelet agents. ASA Grade Assessment: per anesthesia endoscopic documentation. After reviewing the risks and benefits, the patient was deemed in satisfactory condition to undergo the procedure. - The anesthesia plan was to use monitored anesthesia care (MAC). After obtaining informed consent, the endoscope was passed under direct vision. Throughout the procedure, the patient's blood pressure, pulse, and oxygen saturations were monitored continuously. The Endoscope was introduced through the mouth, and advanced to the second part of duodenum. The upper GI endoscopy was accomplished without difficulty. The patient tolerated the procedure well. Complications: No immediate complications. Procedure Code(s): --- Professional --- 26884, Esophagogastroduodenoscopy, flexible, transoral; with biopsy, single or multiple --- Technical --- 68790, Esophagogastroduodenoscopy, flexible, transoral; with biopsy, single or multiple Diagnosis Code(s): --- Professional --- K29.70, Gastritis, unspecified, without bleeding K22.89, Other specified disease of esophagus R10.13, Epigastric pain R13.10, Dysphagia, unspecified --- Technical --- K29.70, Gastritis, unspecified, without bleeding K22.89, Other specified disease of esophagus R10.13, Epigastric pain R13.10, Dysphagia, unspecified CPT copyright 2021 [employer] [place] [employer]. All rights reserved. The codes documented in this report are preliminary and upon die forger review may be revised to meet current compliance requirements. Attending Participation: I personally performed the entire procedure. Matty Phoenix MD. Matty Phoenix MD 03/27/2023 2:02:02 PM This report has been signed electronically. Number of Addenda: 0 Note Initiated On: 03/27/2023 1:42 [facility] [id number] Note Advanced Laparoscopic Surgery History and Physical CHIEF COMPLAINT: No chief complaint on file. HPI: Devyn Corona is a 43 y.o. female with epigsatric pain and dysphagia PMHx: Past Medical History: Diagnosis Date Abdominal pain Anemia Fatigue GERD (gastroesophageal reflux disease) Hypertension Liver cyst Uterine fibroid Viral illness PSHx: Past Surgical History: Procedure Laterality Date FEMINIZING AUGMENTATION MAMMOPLASTY 2010 HYSTERECTOMY 04/16/2021 IMGHX XR ENDO COLONSCOPY W DILATATION KNEE SURGERY Bilateral ACL/MCL TEARS IN 1995,1997,1999,2017 PANNICULECTOMY (HISTORICAL) 2010 PFMHx: Family History Problem Relation Name Age of Onset Bradycardia Mother Lung cancer Father Alcohol abuse Father Other (SMOKER) Father ALL: No Known Allergies MEDS: @MEDCMED@ SOCIAL Hx: Social History Socioeconomic History Marital status: Spouse name: Not on file Number of children: Not on file Years of education: Not on file Highest education level: Not on file Occupational History Not on file Tobacco Use Smoking status: Never Smokeless tobacco: Never Vaping Use Vaping Use: Never used Substance and Sexual Activity Alcohol use: Yes Comment: OCCASIONALLY Drug use: Never Sexual activity: Yes Partners: Male Other Topics Concern Not on file Social History Narrative Not on file Social Determinants of Health Financial Resource Strain: Not on file Food Insecurity: Not on file Transportation Needs: Not on file Physical Activity: Not on file Stress: Not on file Social Connections: Not on file Intimate Partner Violence: Not on file Housing Stability: Not on file Review of Systems: I personally reviewed the review of systems with the patient. The ROS is negative except for what is listed in HPI. Physical Examination: BP 137/73 Pulse (!) 45 Temp 36.3 ?C (97.3 ?F) (Temporal) Resp 16 Ht 5' 5 (1.651 m) Wt 155 lb (70.3 kg) SpO2 99% BMI 25.79 kg/m? She stands @FLOWAMB(11)@ tall with a weight of @FLOWAMB(14)@ , resulting in a BMI of Body mass index is 25.79 kg/m?.. General: The patient is awake, alert, and oriented, and is in no apparent distress. Normal affect. Head and Neck: Normocephalic and atraumatic. Supple, no thyromegaly. Cardiac: Regular rate and rhythm without evidence of murmur. No obvious carotid bruits. Respiratory: Clear to auscultation bilaterally. Good inspiratory effort. Abdomen: Soft, nt/nd Extremities: Ambulatory without assistance. Neurological: Intact sensation in 4 extremities, no focal deficits notes. Skin: No rashes or lesions noted. Warm and dry. Rectal: Not done. Hernia: no hernias found on exam Assessment and Plan Active Problems: There are no active Hospital Problems. Plan: 43 y.o. female who presents for EGD Proceed with EGD [facility] [id number] NotePatient: Devyn Corona Procedure Information Date/Time: 03/27/23 1210 Procedure: EGD WITH BIOPSY - 20 mins Location: [place] [address] / [facility] Gastroenterology Providers: Matty Phoenix MD Relevant Problems No relevant active problems Past Medical History: Past Medical History: No date: Abdominal pain No date: Anemia No date: Fatigue No date: GERD (gastroesophageal reflux disease) No date: Hypertension No date: Liver cyst No date: Uterine fibroid No date: Viral illness Past Surgical History: Past Surgical History: 2011: FEMINIZING AUGMENTATION MAMMOPLASTY 04/16/2021: HYSTERECTOMY No date: IMGHX XR ENDO COLONSCOPY W DILATATION No date: KNEE SURGERY; Bilateral Comment: ACL/MCL TEARS IN 1996,1997,1999,2018 2011: PANNICULECTOMY (HISTORICAL) Social History: TOBACCO: reports that she has never smoked. She has never used smokeless tobacco. ETOH: reports current alcohol use. Social History Substance and Sexual Activity Drug Use Never Family History: Family History Problem Relation Name Age of Onset ? Bradycardia Mother ? Lung cancer Father ? Alcohol abuse Father ? Other (SMOKER) Father Screening: Hysterectomy Clinical information reviewed: Tobacco Allergies Meds Med Hx Surg Hx OB Status Fam Hx Soc Hx Physical Exam Airway Mallampati: II TM distance: >3 FB Neck ROM: full Mouth Open: normalendotracheal tube not in place Cardiovascular - normal exam Dental dentition normal Pulmonary - normal exam Abdominal - normal exam Anesthesia Plan ASA 2 MAC and TIVA The patient is not a current smoker. Education provided regarding risk of obstructive sleep apnea. Anesthetic plan and risks discussed with patient. Use of blood products discussed with who consented to blood products. patient is NPO PRETTY Screening Labs: No results found for: WBC, HGB, HCT, MCV, PLT No results found for: NA, K, CL, CO2, BUN, CREATININE, GLUCOSE, CALCIUM, PROT, BILIRUBINFL, ALKPHOS, AST, ALT, EGFR, GLOB No echocardiogram results found for the past 14 days No results found for this or any previous visit.[facility] 03-27-2023 Telephone encounter Note* Telephone Encounter - VICKI Umana - 03/27/2023 1:[address] Phoenix, request Bentyl for abdominal pain. [facility]. [id number] Miscellaneous Notes* Telephone Encounter - Melani Beauchamp PA-C - 03/27/2023 1:[address] Phoenix, request Bentyl for abdominal pain. Rx sent. documented in this encounterSNewark [id number] Note* Op Note - Matty Phoenix MD - 03/27/2023 1:42 PM EDT [facility] Name: Devyn Corona Procedure Date: 03/27/2023 1:42 PM Gender: Female Date of : 1980 Age: 43 Admit Type: Outpatient Note Status: Finalized Endoscopist: Matty Phoenix MD, [id number] Procedure: Upper GI endoscopy Indications: Epigastric abdominal pain, Dysphagia Findings: Mild inflammation was found in the gastric antrum. Biopsies were taken with a cold forceps for Helicobacter pylori testing. Scattered mild mucosal changes characterized by nodularity and altered texture were found in the entire esophagus. Biopsies were taken with a cold forceps for histology, rule out EoE. Impression: - Gastritis. Biopsied. - Nodular, texture changed mucosa in the esophagus. Biopsied. Recommendation: - Patient has a contact number available for emergencies. The signs and symptoms of potential delayed complications were discussed with the patient. Return to normal activities tomorrow. Written discharge instructions were provided to the patient. - Resume previous diet. - Continue present medications. - Await pathology results. Referring MD: Nupur Garcia Medicines: Monitored Anesthesia Care Procedure: Pre-Anesthesia Assessment: - Prior to the procedure, a History and Physical was performed, and patient medications and allergies were reviewed. The patient's tolerance of previous anesthesia was also reviewed. The risks and benefits of the procedure and the sedation options and risks were discussed with the patient. All questions were answered, and informed consent was obtained. Prior Anticoagulants: The patient has taken no anticoagulant or antiplatelet agents. ASA Grade Assessment: per anesthesia endoscopic documentation. After reviewing the risks and benefits, the patient was deemed in satisfactory condition to undergo the procedure. - The anesthesia plan was to use monitored anesthesia care (MAC). After obtaining informed consent, the endoscope was passed under direct vision. Throughout the procedure, the patient's blood pressure, pulse, and oxygen saturations were monitored continuously. The Endoscope was introduced through the mouth, and advanced to the second part of duodenum. The upper GI endoscopy was accomplished without difficulty. The patient tolerated the procedure well. Complications: No immediate complications. Procedure Code(s): --- Professional --- 21447, Esophagogastroduodenoscopy, flexible, transoral; with biopsy, single or multiple --- Technical --- 59145, Esophagogastroduodenoscopy, flexible, transoral; with biopsy, single or multiple Diagnosis Code(s): --- Professional --- K29.70, Gastritis, unspecified, without bleeding K22.89, Other specified disease of esophagus R10.13, Epigastric pain R13.10, Dysphagia, unspecified --- Technical --- K29.70, Gastritis, unspecified, without bleeding K22.89, Other specified disease of esophagus R10.13, Epigastric pain R13.10, Dysphagia, unspecified CPT copyright 2021 [employer] [place] [employer]. All rights reserved. The codes documented in this report are preliminary and upon die forger review may be revised to meet current compliance requirements. Attending Participation: I personally performed the entire procedure. Matty Phoenix MD. Matty Phoenix MD 03/27/2023 2:02:02 PM This report has been signed electronically. Number of Addenda: 0 Note Initiated On: 03/27/2023 1:42 PM [facility] [id number] Note* Op Note - Matty Phoenix MD - 03/27/2023 1:42 PM EDT [facility] Name: Devyn Corona Procedure Date: 03/27/2023 1:42 PM Gender: Female Date of : 1980 Age: 43 Admit Type: Outpatient Note Status: Finalized Endoscopist: Matty Phoenix MD, [id number] Procedure: Upper GI endoscopy Indications: Epigastric abdominal pain, Dysphagia Findings: Mild inflammation was found in the gastric antrum. Biopsies were taken with a cold forceps for Helicobacter pylori testing. Scattered mild mucosal changes characterized by nodularity and altered texture were found in the entire esophagus. Biopsies were taken with a cold forceps for histology, rule out EoE. Impression: - Gastritis. Biopsied. - Nodular, texture changed mucosa in the esophagus. Biopsied. Recommendation: - Patient has a contact number available for emergencies. The signs and symptoms of potential delayed complications were discussed with the patient. Return to normal activities tomorrow. Written discharge instructions were provided to the patient. - Resume previous diet. - Continue present medications. - Await pathology results. Referring MD: Nupur Garcia Medicines: Monitored Anesthesia Care Procedure: Pre-Anesthesia Assessment: - Prior to the procedure, a History and Physical was performed, and patient medications and allergies were reviewed. The patient's tolerance of previous anesthesia was also reviewed. The risks and benefits of the procedure and the sedation options and risks were discussed with the patient. All questions were answered, and informed consent was obtained. Prior Anticoagulants: The patient has taken no anticoagulant or antiplatelet agents. ASA Grade Assessment: per anesthesia endoscopic documentation. After reviewing the risks and benefits, the patient was deemed in satisfactory condition to undergo the procedure. - The anesthesia plan was to use monitored anesthesia care (MAC). After obtaining informed consent, the endoscope was passed under direct vision. Throughout the procedure, the patient's blood pressure, pulse, and oxygen saturations were monitored continuously. The Endoscope was introduced through the mouth, and advanced to the second part of duodenum. The upper GI endoscopy was accomplished without difficulty. The patient tolerated the procedure well. Complications: No immediate complications. Procedure Code(s): --- Professional --- 53076, Esophagogastroduodenoscopy, flexible, transoral; with biopsy, single or multiple --- Technical --- 90648, Esophagogastroduodenoscopy, flexible, transoral; with biopsy, single or multiple Diagnosis Code(s): --- Professional --- K29.70, Gastritis, unspecified, without bleeding K22.89, Other specified disease of esophagus R10.13, Epigastric pain R13.10, Dysphagia, unspecified --- Technical --- K29.70, Gastritis, unspecified, without bleeding K22.89, Other specified disease of esophagus R10.13, Epigastric pain R13.10, Dysphagia, unspecified CPT copyright 2021 [employer] [place] [employer]. All rights reserved. The codes documented in this report are preliminary and upon die forger review may be revised to meet current compliance requirements. Attending Participation: I personally performed the entire procedure. Matty Phoenix MD. Matty Phoenix MD 03/27/2023 2:02:02 PM This report has been signed electronically. Number of Addenda: 0 Note Initiated On: 03/27/2023 1:42 PM T [id number] Miscellaneous Notes* Op Note - Matty Phoenix MD - 03/27/2023 1:42 PM EDT [facility] Patient Name: Devyn Corona Procedure Date: 03/27/2023 1:42 PM Gender: Female Date of : 1980 Age: 43 Admit Type: Outpatient Note Status: Finalized Endoscopist: Matty Phoenix MD, [id number] Procedure: Upper GI endoscopy Indications: Epigastric abdominal pain, Dysphagia Findings: Mild inflammation was found in the gastric antrum. Biopsies were taken with a cold forceps for Helicobacter pylori testing. Scattered mild mucosal changes characterized by nodularity and altered texture were found in the entire esophagus. Biopsies were taken with a cold forceps for histology, rule out EoE. Impression: - Gastritis. Biopsied. - Nodular, texture changed mucosa in the esophagus. Biopsied. Recommendation: - Patient has a contact number available for emergencies. The signs and symptoms of potential delayed complications were discussed with the patient. Return to normal activities tomorrow. Written discharge instructions were provided to the patient. - Resume previous diet. - Continue present medications. - Await pathology results. Referring MD: Nupur Garcia Medicines: Monitored Anesthesia Care Procedure: Pre-Anesthesia Assessment: - Prior to the procedure, a History and Physical was performed, and patient medications and allergies were reviewed. The patient's tolerance of previous anesthesia was also reviewed. The risks and benefits of the procedure and the sedation options and risks were discussed with the patient. All questions were answered, and informed consent was obtained. Prior Anticoagulants: The patient has taken no anticoagulant or antiplatelet agents. ASA Grade Assessment: per anesthesia endoscopic documentation. After reviewing the risks and benefits, the patient was deemed in satisfactory condition to undergo the procedure. - The anesthesia plan was to use monitored anesthesia care (MAC). After obtaining informed consent, the endoscope was passed under direct vision. Throughout the procedure, the patient's blood pressure, pulse, and oxygen saturations were monitored continuously. The Endoscope was introduced through the mouth, and advanced to the second part of duodenum. The upper GI endoscopy was accomplished without difficulty. The patient tolerated the procedure well. Complications: No immediate complications. Procedure Code(s): --- Professional --- 73965, Esophagogastroduodenoscopy, flexible, transoral; with biopsy, single or multiple --- Technical --- 11684, Esophagogastroduodenoscopy, flexible, transoral; with biopsy, single or multiple Diagnosis Code(s): --- Professional --- K29.70, Gastritis, unspecified, without bleeding K22.89, Other specified disease of esophagus R10.13, Epigastric pain R13.10, Dysphagia, unspecified --- Technical --- K29.70, Gastritis, unspecified, without bleeding K22.89, Other specified disease of esophagus R10.13, Epigastric pain R13.10, Dysphagia, unspecified CPT copyright 2021 [employer] [place] [employer]. All rights reserved. The codes documented in this report are preliminary and upon die forger review may be revised to meet current compliance requirements. Attending Participation: I personally performed the entire procedure. Matty Phoenix MD. Matty Phoenix MD 03/27/2023 2:02:02 PM This report has been signed electronically. Number of Addenda: 0 Note Initiated On: 03/27/2023 1:42 PM documented in this [facility]06-02-2023 History and physical note* Matty Phoenix MD - 03/27/2023 1:24 PM EDT Images from the original note were not included. Advanced Laparoscopic Surgery History and Physical CHIEF COMPLAINT: No chief complaint on file. HPI: Devyn Corona is a 43 y.o. female with epigsatric pain and dysphagia PMHx: Past Medical History: Diagnosis Date Abdominal pain Anemia Fatigue GERD (gastroesophageal reflux disease) Hypertension Liver cyst Uterine fibroid Viral illness PSHx: Past Surgical History: Procedure Laterality Date FEMINIZING AUGMENTATION MAMMOPLASTY 2011 HYSTERECTOMY 04/16/2021 IM[facility]X XR ENDO COLONSCOPY W DILATATION KNEE SURGERY Bilateral ACL/MCL TEARS IN 1995,1997,1999,2018 PANNICULECTOMY (HISTORICAL) 2010 PFMHx: Family History Problem Relation Name Age of Onset Bradycardia Mother Lung cancer Father Alcohol abuse Father Other (SMOKER) Father ALL: No Known Allergies MEDS: @MEDCMED@ SOCIAL Hx: Social History Socioeconomic History Marital status: Spouse name: Not on file Number of children: Not on file Years of education: Not on file Highest education level: Not on file Occupational History Not on file Tobacco Use Smoking status: Never Smokeless tobacco: Never Vaping Use Vaping Use: Never used Substance and Sexual Activity Alcohol use: Yes Comment: OCCASIONALLY Drug use: Never Sexual activity: Yes Partners: Male Other Topics Concern Not on file Social History Narrative Not on file Social Determinants of Health Financial Resource Strain: Not on file Food Insecurity: Not on file Transportation Needs: Not on file Physical Activity: Not on file Stress: Not on file Social Connections: Not on file Intimate Partner Violence: Not on file Housing Stability: Not on file Review of Systems: I personally reviewed the review of systems with the patient. The ROS is negative except for what is listed in HPI. Physical Examination: BP 137/73 Pulse (!) 45 Temp 36.3 C (97.3 F) (Temporal) Resp 16 Ht 5' 5 (1.651 m) Wt 155 lb (70.3 kg) SpO2 99% BMI 25.79 kg/m She stands @FLOWAMB(11)@ tall with a weight of @FLOWAMB(14)@ , resulting in a BMI of Body mass index is 25.79 kg/m .. General: The patient is awake, alert, and oriented, and is in no apparent distress. Normal affect. Head and Neck: Normocephalic and atraumatic. Supple, no thyromegaly. Cardiac: Regular rate and rhythm without evidence of murmur. No obvious carotid bruits. Respiratory: Clear to auscultation bilaterally. Good inspiratory effort. Abdomen: Soft, nt/nd Extremities: Ambulatory without assistance. Neurological: Intact sensation in 4 extremities, no focal deficits notes. Skin: No rashes or lesions noted. Warm and dry. Rectal: Not done. Hernia: no hernias found on exam Assessment and Plan Active Problems: There are no active Hospital Problems. Plan: 43 y.o. female who presents for EGD Proceed with EGD [employer] Work Phone: [phone] 714-516206-02-2023 History and physical note* Matty Phoenix MD - 03/27/2023 1:24 PM EDT Images from the original note were not included. Advanced Laparoscopic Surgery History and Physical CHIEF COMPLAINT: No chief complaint on file. HPI: Devyn Corona is a 43 y.o. female with epigsatric pain and dysphagia PMHx: Past Medical History: Diagnosis Date Abdominal pain Anemia Fatigue GERD (gastroesophageal reflux disease) Hypertension Liver cyst Uterine fibroid Viral illness PSHx: Past Surgical History: Procedure Laterality Date FEMINIZING AUGMENTATION MAMMOPLASTY 2011 HYSTERECTOMY 04/16/2021 [facility] XR ENDO COLONSCOPY W DILATATION KNEE SURGERY Bilateral ACL/MCL TEARS IN 1996,1997,1999,2018 PANNICULECTOMY (HISTORICAL) 2010 PFMHx: Family History Problem Relation Name Age of Onset Bradycardia Mother Lung cancer Father Alcohol abuse Father Other (SMOKER) Father ALL: No Known Allergies MEDS: @MEDCMED@ SOCIAL Hx: Social History Socioeconomic History Marital status: Spouse name: Not on file Number of children: Not on file Years of education: Not on file Highest education level: Not on file Occupational History Not on file Tobacco Use Smoking status: Never Smokeless tobacco: Never Vaping Use Vaping Use: Never used Substance and Sexual Activity Alcohol use: Yes Comment: OCCASIONALLY Drug use: Never Sexual activity: Yes Partners: Male Other Topics Concern Not on file Social History Narrative Not on file Social Determinants of Health Financial Resource Strain: Not on file Food Insecurity: Not on file Transportation Needs: Not on file Physical Activity: Not on file Stress: Not on file Social Connections: Not on file Intimate Partner Violence: Not on file Housing Stability: Not on file Review of Systems: I personally reviewed the review of systems with the patient. The ROS is negative except for what is listed in HPI. Physical Examination: BP 137/73 Pulse (!) 45 Temp 36.3 C (97.3 F) (Temporal) Resp 16 Ht 5' 5 (1.651 m) Wt 155 lb (70.3 kg) SpO2 99% BMI 25.79 kg/m She stands @FLOWAMB(11)@ tall with a weight of @FLOWAMB(14)@ , resulting in a BMI of Body mass index is 25.79 kg/m .. General: The patient is awake, alert, and oriented, and is in no apparent distress. Normal affect. Head and Neck: Normocephalic and atraumatic. Supple, no thyromegaly. Cardiac: Regular rate and rhythm without evidence of murmur. No obvious carotid bruits. Respiratory: Clear to auscultation bilaterally. Good inspiratory effort. Abdomen: Soft, nt/nd Extremities: Ambulatory without assistance. Neurological: Intact sensation in 4 extremities, no focal deficits notes. Skin: No rashes or lesions noted. Warm and dry. Rectal: Not done. Hernia: no hernias found on exam Assessment and Plan Active Problems: There are no active Hospital Problems. Plan: 43 y.o. female who presents for EGD Proceed with EGD documented in this [facility]05-01-2023 Telephone encounter Note* Telephone Encounter - Bk Ulloa MA - 02/23/2023 3:48 PM EDT Patient called back and states that date and time are fine. 03/27/2023 [facility] 11:40 [facility] 10:40 [id number] Miscellaneous Notes* Telephone Encounter - Bk Ulloa MA - 02/23/2023 3:48 PM EDT Patient called back and states that date and time are fine. 03/27/2023 [facility] 11:40 with arrival at 10:40 * Telephone Encounter - Marquita Adams - 02/23/2023 3:04 PM EDT Requested patient call back to let me know if she could make her EGD appt 03/27/23 11:40 [facility] documented in this [facility]05-01-2023 Telephone encounter Note* Telephone Encounter - Marquita Adams - 02/23/2023 3:04 PM EDT Requested patient call back to let me know if she could make her EGD appt 03/27/23 11:40 [id number] History of Present illness Narrative* Matty Phoenix MD - 02/19/2023 1:30 PM EDT Images from the original note were not included. [facility] Advanced Laparoscopic Surgery Patient Name: Devyn Corona Date: 02/19/23 Referring Physician: No ref. provider found HPI: Devyn Corona is a 43 y.o. female who presents with epigastric pain, dysphagia and chronic constipation. Reports for the past couple years describes a cramp like sensation in epigastric region. Has had problems with constipation and felt that the cramp/spasm was due to the constipation. Underwent colonoscopy 2020 that was unremarkable. Has been taking MOM and miralax and still will go days without bowel movement. 3 days ago, while bending over, felt a pop with sharp pain in epigastric region with noticeable bulge. She states her was able to push it back in but since has a chronic pain. She reports one episode of reflux. Never had reflux until 3 days ago. Was to start omeprazole butwas never sent to her pharmacy. She does have sensation of food getting stuck but no emesis. Has never had an upper endoscopy. Colonoscopy a few years ago was normal. No other imaging. Previous abdominal surgery laparoscopic hysterectomy (has both ovaries) and panniculectomy. She does not smoke. Social ETOH. No recreational drug use. Notes reviewed: - Dr. Garcia, 02/13/23 I personally reviewed the patient intake form with the patient. The ROS is negative except for whatis listed in HPI. PMHx: Past Medical History: Diagnosis Date Abdominal pain Anemia Fatigue GERD (gastroesophageal reflux disease) Hypertension Liver cyst Uterine fibroid Viral illness PSHx: Past Surgical History: Procedure Laterality Date FEMINIZING AUGMENTATION MAMMOPLASTY 2011 HYSTERECTOMY 04/16/2021 [facility] XR ENDO COLONSCOPY W DILATATION KNEE SURGERY Bilateral ACL/MCL TEARS IN 1995,1997,1999,2018 PANNICULECTOMY (HISTORICAL) 2010 PFMHx: Family History Problem Relation Name Age of Onset Bradycardia Mother Lung cancer Father Alcohol abuse Father Other (SMOKER) Father ALL: No Known Allergies MEDS: Current Outpatient Medications Medication Sig Dispense Refill lisinopril-hydroCHLOROthiazide 20-12.5 MG tablet Take 1 tablet by mouth daily. Multiple Vitamins-Minerals (Hair/Skin/Nails) tablet Take by mouth. Multiple Vitamins-Minerals (multivitamin with minerals) tablet Take 1 tablet by mouth daily. No current facility-administered medications for this visit. SOCIAL Hx: Social History Socioeconomic History Marital status: Spouse name: Not on file Number of children: Not on file Years of education: Not on file Highest education level: Not on file Occupational History Not on file Tobacco Use Smoking status: Never Smokeless tobacco: Never Substance and Sexual Activity Alcohol use: Yes Comment: OCCASIONALLY Drug use: Never Sexual activity: Yes Partners: Male Other Topics Concern Not on file Social History Narrative Not on file Social Determinants of Health Financial Resource Strain: Not on file Food Insecurity: Not on file Transportation Needs: Not on file Physical Activity: Not on file Stress: Not on file Social Connections: Not on file Intimate Partner Violence: Not on file Housing Stability: Not on file ROS: General: negative for - chills, fatigue, fever or malaise Gastrointestinal: negative for - change in bowel habits, hemoptysis, hematemesis, hematochezia, dysphagia, nausea, vomiting, diarrhea, constipation, weight loss Physical Examination: BP 124/78 (BP Location: Right arm, Patient Position: Sitting, BP Cuff Size: Adult) Pulse 67 Temp 37 C (98.6 F) (Temporal) Ht 5' 5 (1.651 m) Wt 157 lb (71.2 kg) BMI 26.13 kg/m She stands Height: 5' 5 (165.1 cm) tall with a weight of Weight: 157 lb (71.2 kg) , resulting in aBMI of Body mass index is 26.13 kg/m .. General: The patient is awake, alert, and oriented. Noticeably distressed Respiratory: Normal effort, no gross abnormal breath sounds Abdomen: Soft, non distended, decreased BS. TTP epigastric and LUQ; no rebound or guarding. Healed laparoscopic scars Hernia: No palpable hernia on exam. Extremities: Ambulatory without assistance, no edema Skin: Warm, dry, intact; no obvious lesions or discoloration Assessment/Plan Devyn was seen today for new patient. Diagnoses and all orders for this visit: Epigastric pain (Primary) - FL upper GI double contrast w KUB; Future - CT abdomen pelvis w contrast; Future - Creatinine, Serum; Future - Creatinine, Serum - FL upper GI double contrast w KUB; Future - US abdomen complete; Future - NM hepatobiliary scan with pharm agent w/cck; Future LUQ pain - CT abdomen pelvis w contrast; Future - Creatinine, Serum; Future - Creatinine, Serum Chronic constipation - CT abdomen pelvis w contrast; Future Esophageal dysphagia - FL upper GI double contrast w KUB; Future - FL upper GI double contrast w KUB; Future Devyn Corona is a 43 y.o. female who presents with epigastric pain, dysphagia and bloating. She only recently started to have reflux. No palpable hernia defect on exam however she states she had a noticeable bulge that was able to be reduced. We will first proceed with UGI w/mb, EGD, US and HIDA to rule out gallbladder pathology. If work up negative, consider CT A/P. Rx for bentyl given. She will follow up after completion. The above tests have been described and explained to the patient and the patient is in agreement toundergo the above testing. All questions were addressed with the patient to the patients satisfaction. I met with the patient today to discuss risks and benefits of laparoscopic HH repair/anti-reflux surgery including, but not limited to injury to surrounding structures, the possibility of using mesh for diaphragmatic reinforcement, conversion to open, pleural effusion requiring thoracentesis and/orchest tube placement, prolonged mechanical ventilation, and . The patient is aware of the possibility of gas bloat syndrome, the need for ongoing PPI/H2 Reddy use, postoperative reflux or dysphagia requiring dilation. We discussed potential for hemorrhage, infection, incomplete resolution ofreflux symptoms, as well as cardiac and pulmonary-related complications. The possibility of removalof magnetic sphincter augmentation device was also explained if applicable. I met with her today to discuss the risks and benefits of laparoscopic HH repair/anti-reflux surgery as outlined above. Visual aids were used to describe the procedure. All questions were answered topatient's satisfaction. I personally performed the evaluation and management of Devyn Corona in the development of a treatment plan for this patient. I personally interviewed the patient and performed an individual physical examination. In addition, I discussed the patient's condition and treatment options with them. I have also reviewed and agree with the past medical, family and social history unless otherwise noted. All of the patient's questions were answered. I discussed/counseled the patient regarding the risks and benefits of surgery as well as the preoperative and postoperative care plan for this patient.The patient was seen and examined independently and relevant data reviewed by myself. A full chart review was performed. Patient Care Team: Nupur Garcia MD as PCP - General (Family Medicine) hf documented in this [facility]05-25-2022 History of Present illness Narrative* Tammy Silva, OPERATIONS SPECIALIST - 03/19/2022 6:19 PM EDT [facility] [address] [facility] [address] [facility] [id number] Chief Complaint Patient presents with Right Knee - Pain, Follow-up Devyn Corona returns to the office today for follow up on her right knee. She has had the knee scoped, injected, completed physical therapy with continued oral medications and she is miserable. Shehas pain in the knee every day. She is having to live her life around what the knee will allow her to do. She does have a special needs child who requires a lot of assistance which is becoming more difficult for her due to the knee. The patient's past medical history, surgical history, social history, family history, medications and allergies were reviewed with the patient today and are available in the chart for further review. No Known Allergies Current Outpatient Medications: amLODIPine (NORVASC) 5 MG tablet, Take 1 (one) tablet (5 mg total) by mouth at bedtime ., Disp: 90 tablet, Rfl: 0 cyanocobalamin, vitamin B-12, 1,000 mcg/mL Drop, Take by mouth ., Disp: , Rfl: ferrous sulfate 325 (65 FE) MG tablet, Take 325 mg by mouth daily with breakfast ., Disp: , Rfl: Lactobac no.41/Bifidobact no.7 (PROBIOTIC-10 ORAL), Take by mouth daily ., Disp: , Rfl: lisinopriL-hydrochlorothiazide (PRINZIDE,ZESTORETIC) 20-12.5 mg per tablet, Take 1 tablet by mouth daily ., Disp: , Rfl: loratadine (CLARITIN) 5 mg chewable tablet, Chew and Swallow 5 mg ., Disp: , Rfl: meloxicam (MOBIC) 15 MG tablet, Take 1 (one) tablet (15 mg total) by mouth daily ., Disp: 30 tablet, Rfl: 11 multivitamin (THERAGRAN) per tablet, Take 1 tablet by mouth daily ., Disp: , Rfl: omega-3 fatty acids-fish oil 340-1,000 mg cap, Take 1 capsule by mouth daily ., Disp: , Rfl: Past Medical History: Diagnosis Date Arthritis Bradycardia Hypertension 2019 Past Surgical History: Procedure Laterality Date ARTHROSCOPY KNEE Right 10/07/2019 Procedure: Right knee arthroscopy with screw removal, partial meniscectomy, abrasion chondroplasty ; Surgeon: Melody Fuentes MD; Location: Main OR; Service: Orthopedic BREAST AUGMENTATION Bilateral KNEE SURGERY X3 Social History Socioeconomic History Marital status: Tobacco Use Smoking status: Never Smokeless tobacco: Never Substance and Sexual Activity Alcohol use: Yes Alcohol/week: 1.0 standard drink Types: 1 Glasses of wine per week Comment: occasional-- states drinking 4 beers last night Drug use: No ROS: Review of Systems Constitutional: Negative for activity change and fatigue. HENT: Negative for congestion, hearing loss and trouble swallowing. Eyes: Negative for visual disturbance. Respiratory: Negative for chest tightness and shortness of breath. Cardiovascular: Negative for chest pain and palpitations. Gastrointestinal: Negative for abdominal pain, diarrhea, nausea and vomiting. Endocrine: Negative for polydipsia, polyphagia and polyuria. Genitourinary: Negative for decreased urine volume, difficulty urinating and hematuria. Musculoskeletal: Positive for arthralgias, gait problem, joint swelling and myalgias. Skin: Negative for color change, rash and wound. Allergic/Immunologic: Negative for immunocompromised state. Neurological: Negative for dizziness, weakness, light-headedness and numbness. Hematological: Does not bruise/bleed easily. Psychiatric/Behavioral: Negative for confusion and sleep disturbance. The patient is not nervous/anxious. PE: Physical Exam Constitutional: Appearance: She is well-developed. HENT: Head: Normocephalic. Eyes: Pupils: Pupils are equal, round, and reactive to light. Cardiovascular: Rate and Rhythm: Normal rate and regular rhythm. Pulmonary: Effort: Pulmonary effort is normal. Breath sounds: Normal breath sounds. Abdominal: General: Bowel sounds are normal. Palpations: Abdomen is soft. Musculoskeletal: General: Swelling and tenderness present. Normal range of motion. Cervical back: Normal range of motion and neck supple. Right knee: Effusion present. Skin: General: Skin is warm and dry. Neurological: Mental Status: She is alert and oriented to person, place, and time. ORTHO: Right Knee Exam Muscle Strength The patient has normal right knee strength. Tenderness The patient is experiencing tenderness in the patella, medial joint line, MCL and lateral joint line. Range of Motion Extension: normal Flexion: 130 (With pain) Tests Varus: negative Valgus: negative Tiffanie: Anterior - negative Drawer: Anterior - negative Posterior - negative Other Erythema: absent Scars: present Sensation: normal Pulse: present Swelling: mild Effusion: effusion present Imaging: No new imaging today, reviewed from prior visit. Assessment/Plan: After exam and discussion, we discussed treatment options for the right knee. She is absolutely miserable. She has had multiple scopes on the knee. Her last arthroscopy, in 09/[address] Fuentes, showed Grade 3 and 4 chondromalacia, medial femoral condyle. Grade 3 chondromalacia,tibial plateau. Grade 3 chondromalacia, patella. We have tried injections in addition to different prescription strength anti-inflammatories but she just continues to worsen. She has a special needs son which requires lifting at times which is becoming increasingly difficult due to the pain and theinstability of the knee. We did discuss a total knee replacement and the likelihood of her needing a revision in the future due to her being so young. She understands this completely and just wants her life back. She is literally living around what the knee allows her to do. She just wants to be able to life her life without this pain. The office will contact her to schedule the total knee arthroplasty with Dr. Fuentes. She verbalizes understanding and is in agreement with the treatment options. documented in this [id number] History of Present illness Narrative* Marjorie Chase MA - 01/16/2022 4:20 PM EDT HPI: Patient presents for Chief Complaint Patient presents with Hypertension Hypertension She presents for follow-up of hypertension. She indicates that she is feeling well and denies any symptoms referable to her elevated blood pressure. Specifically denies all listed. Current medicationregimen is as listed in this record. She is currently experiencing the following side effects from her medication: none. . * Osmar Garcia MD - 01/16/2022 4:20 PM EDT HPI: Patient presents for Chief Complaint Patient presents with Hypertension Hypertension She presents for follow-up of hypertension. She indicates that she is feeling well and denies any symptoms referable to her elevated blood pressure. Specifically denies all listed. Current medicationregimen is as listed in this record. She is currently experiencing the following side effects from her medication: none. . Review of Systems Constitutional: Negative. HENT: Negative. Respiratory: Negative. Cardiovascular: Negative. Gastrointestinal: Negative. Physical Exam Vitals and nursing note reviewed. Constitutional: Appearance: Normal appearance. Cardiovascular: Rate and Rhythm: Normal rate and regular rhythm. Pulses: Normal pulses. Heart sounds: Normal heart sounds. Pulmonary: Effort: Pulmonary effort is normal. Breath sounds: Normal breath sounds. Neurological: Mental Status: She is alert. Vitals: 01/16/22 1611 BP: (!) 149/93 Pulse: (!) 45 Temp: 97.4 F (36.3 C) No Known Allergies Family History Problem Relation Age of Onset Lung Cancer Father Other - Specify Son 5 P minus syndrome Past Surgical History: Procedure Laterality Date HYSTERECTOMY TOTAL ABDOMINAL LAPAROSCOPIC W/ REMOVAL TUBES/OVARIES Midline 04/16/2021 Laterality: Midline; Surgeon: Matty Donaldson MD; Location: [facility] GAL OR EGD DIAGNOSTIC N/A 01/01/2021 Laterality: N/A; Surgeon: Wilder Hale MD; Location: [facility] ONT ENDOSCOPY COLONOSCOPY DIAGNOSTIC N/A 01/01/2021 Laterality: N/A; Surgeon: Wilder Hale MD; Location: [facility] ONT ENDOSCOPY AUGMENTATION BREAST 2010 KNEE SURGERY Right x3 KNEE SURGERY Left STOMACH SURGERY tummy tuck TUBAL LIGATION Social History Socioeconomic History Marital status: Tobacco Use Smoking status: Never Smoker Smokeless tobacco: Never Used Vaping Use Vaping Use: Never used Substance and Sexual Activity Alcohol use: Yes Comment: consumes socially Drug use: Never Sexual activity: Yes Partners: Male control/protection: Tubal Ligation, Hysterectomy Other Topics Concern Domestic Violence No Social Determinants of Health Financial Resource Strain: Low Risk Difficulty of Paying Living Expenses: Not very hard Food Insecurity: No Food Insecurity Worried About Running Out of Food in the Last Year: Never true Ran Out of Food in the Last Year: Never true Transportation Needs: No Transportation Needs Lack of Transportation (Medical): No Lack of Transportation (Non-Medical): No Social Connections: Unknown Frequency of Communication with Friends and Family: Once a week Frequency of Social Gatherings with Friends and Family: Once a week Marital Status: Intimate Partner Violence: Not At Risk Fear of Current or Ex-Partner: No Emotionally Abused: No Physically Abused: No Sexually Abused: No Housing Stability: Unknown Unable to Pay for Housing in the Last Year: No Unstable Housing in the Last Year: No Past Medical History: Diagnosis Date Anemia Bradycardia Depression GERD (gastroesophageal reflux disease) occasional Migraine Current Outpatient Medications: amLODIPine 5 MG tablet, Take 1 tablet by mouth at bedtime., Disp: 90 tablet, Rfl: 1 Cyanocobalamin (VITAMIN B 12 PO), Take by mouth., Disp: , Rfl: ferrous sulfate 325 (65 Fe) MG Tab tablet, Take 325 mg by mouth., Disp: , Rfl: lisinopril-hydrochlorothiazide 20-12.5 MG per tablet, Take 1 tablet by mouth daily., Disp: 90 tablet, Rfl: 1 Loratadine 5 MG Chew Tab, Chew 5 mg Every morning as needed., Disp: , Rfl: Multiple Vitamin (ONE-DAILY MULTIVITAMINS) Tab, Take 1 tablet by mouth Daily (with dinner)., Disp: , Rfl: Multiple Vitamins-Minerals (HAIR SKIN & NAILS ADVANCED PO), Take by mouth., Disp: , Rfl: Ezel-3 Fatty Acids (Fish Oil) 1000 MG capsule, Take 1 capsule by mouth daily., Disp: , Rfl: Probiotic Product (PROBIOTIC-10 PO), Take by mouth., Disp: , Rfl: Labs: All recent labs/test reviewed. Assessment & Plan ICD-10-CM 1. Essential hypertension I10 Orders Placed This Encounter lisinopril-hydrochlorothiazide 20-12.5 MG per tablet amLODIPine 5 MG tablet Medications are to be taken as directed. Osmar Garcia MD 01/16/2022 [facility] Miscellaneous Notes* Addendum Note - Osmar Garcia MD - 01/16/2022 4:20 PM EDTAddended by: OSMAR GARCIA on: 01/16/2022 04:22 PM Modules accepted: Orders [facility] in this [facility] Note* Addendum Note - Osmar Garcia MD - 01/16/2022 4:20 PM EDTAddended by: OSMAR GARCIA on: 01/16/2022 04:22 PM Modules accepted: Orders [facility]03-08-2022 History of Present illness Narrative* Tammy Silva CNP - 12/31/2021 10:14 AM ESTAssociated Order(s): LG Jt Injection/Arthrocentesis: R knee Post-Procedure Diagnose(s): S/P right knee arthroscopy LG Jt Injection/Arthrocentesis: R knee Performed by: Tammy Silva CNP Authorized by: Tammy Silva CNP CPT 41033 - Large Joint Arthrocentesis: Consent given by: Patient Time out: Immediately prior to the procedure a time out was called Physician or proceduralist has discussed critical or nonroutine steps, procedure duration and anticipated blood loss: Yes Supporting Documentation: Indications: Pain, joint swelling and diagnostic evaluation Procedure Details: Location: Knee Site: R knee Prep: patient was prepped and draped in usual sterile fashion Needle size: 22 G Approach: Anterolateral Medications: 40 mg triamcinolone acetonide 40 mg/mL Anesthetic used: Lidocaine 1% Anesthetic amount (mL): 2 Patient tolerance: Patient tolerated the procedure well with no immediate complications * Tammy Silva CNP - 12/31/2021 8:56 AM EST 12/31/21 Devyn Corona 1980 Chief Complaint Patient presents with Right Knee - Pain HISTORY of Present Illness: Devyn Corona is a 41 y.o. year old female that presents today with Pain of the Right Knee . Devyn Corona has had injections in the past. Last injection to right/left knee was 08/08/2019. and they tolerated well. They have been treated w/ oral medications & injections. Patient denies new injury to the knees. She did have an arthroscopy of the knee in Sep [address] Fuentes which showed grade 3/4 chondromalacia on the medial femoral condyle as well as the tibial plateau. She has made changes to her workout regime, riding the bike instead of running etc., but continues to have pain in the knee and down the leg. She knows that eventually she will need the knee replaced but wants to wait as long as possible. She would like to try an injection today. The following portions of the patient's history were reviewed and updated as appropriate: allergies, current medications, past surgical history and problem list Assessment No documentation. PAST MEDICAL HISTORY The patient's Medications, Allergies, Past Surgical History, Medical History, Family History and Social History were reviewed and can be found in their online medical record, and I have reviewed thisinformation with Devyn Corona at the time of their visit. They are significant for Past Medical History: Diagnosis Date Arthritis Bradycardia Hypertension 2019 Right Knee Exam Tenderness The patient is experiencing tenderness in the medial joint line and lateral joint line. Range of Motion Extension: 0 Flexion: 140 IMAGING Notes: R Knee: No acute fracture or dislocation. Moderate tri- compartmental degenerative changes in the right knee with partial ACL hardware still present. IMPRESSION And PLAN: Cortisone injection today. Will follow up in 3 months if effective. Call if no improvement in 10 days. 1. S/P right knee arthroscopy Tammy Silva CNP documented in this [id number] History of Present illness Narrative* Yuriy Estes Jr., DO - 12/26/2021 1:30 PM EST Office consultation Date and Time: December 26, 2021 4:18 PM Patient Demographics: Devyn Corona female 1980 Wt Readings from Last 1 Encounters: 10/17/21 70.3 kg (155 lb) Chief Complaint: 41-year-old female patient history of chronic constipation patient reports that time stools up to 7-10 days between, Patient denies fevers chills or night sweats no melena and/or hematochezia, She is had no recent imaging studies, Most recent endoscopy as an EGD and colonoscopy completed in December 2020, She is on probiotics and iron supplementation, She did have a large uterine fibroids and did have a hysterectomy within the last year with this initially improved her symptoms then she began having symptoms as above there has been no recent, reported new stressors or change in diet or activity only new medication was Norvasc started approximately a month before her symptoms began, She does have a large intake of water she denies coffee cola , Or chocolate to extremes and does have a whole foods diet We discussed [place] criteria for IBS, We discussed the transit time and function of the colon in stool consistency, We discussed diagnostic and therapeutic intervention with medications, We discussed diagnostic and therapeutic intervention with endoscopy if necessary, We discussed stimulant cathartic laxatives (patient did have good effect with milk of magnesia daily) Smoking Status Never Smoker Past Medical History: Diagnosis Date Anemia Bradycardia Depression GERD (gastroesophageal reflux disease) occasional Migraine Past Surgical History: Procedure Laterality Date HYSTERECTOMY TOTAL ABDOMINAL LAPAROSCOPIC W/ REMOVAL TUBES/OVARIES Midline 04/16/2021 Laterality: Midline; Surgeon: Matty Donaldson MD; Location: [facility] EGD DIAGNOSTIC N/A 01/01/2021 Laterality: N/A; Surgeon: Wilder Hale MD; Location: [facility] COLONOSCOPY DIAGNOSTIC N/A 01/01/2021 Laterality: N/A; Surgeon: Wilder Hale MD; Location: [facility] AUGMENTATION BREAST 2010 KNEE SURGERY Right x3 KNEE SURGERY Left STOMACH SURGERY tummy tuck TUBAL LIGATION Social History Socioeconomic History Marital status: Spouse name: Not on file Number of children: Not on file Years of education: Not on file Highest education level: Not on file Occupational History Not on file Tobacco Use Smoking status: Never Smoker Smokeless tobacco: Never Used Vaping Use Vaping Use: Never used Substance and Sexual Activity Alcohol use: Yes Comment: consumes socially Drug use: Never Sexual activity: Yes Partners: Male control/protection: Tubal Ligation, Hysterectomy Other Topics Concern Service Not Asked Blood Transfusions Not Asked Caffeine Concern Not Asked Occupational Exposure Not Asked Hobby Hazards Not Asked Sleep Concern Not Asked Stress Concern Not Asked Weight Concern Not Asked Special Diet Not Asked Back Care Not Asked Exercise Not Asked Bike Helmet Not Asked Seat Belt Not Asked Domestic Violence No Social History Narrative Not on file Social Determinants of Health Financial Resource Strain: Low Risk Difficulty of Paying Living Expenses: Not very hard Food Insecurity: No Food Insecurity Worried About Running Out of Food in the Last Year: Never true Ran Out of Food in the Last Year: Never true Transportation Needs: No Transportation Needs Lack of Transportation (Medical): No Lack of Transportation (Non-Medical): No Physical Activity: Not on file Stress: Not on file Social Connections: Unknown Frequency of Communication with Friends and Family: Once a week Frequency of Social Gatherings with Friends and Family: Once a week Attends Synagogue Services: Not on file Active Member of Clubs or Organizations: Not on file Attends Club or Organization Meetings: Not on file Marital Status: Intimate Partner Violence: Not At Risk Fear of Current or Ex-Partner: No Emotionally Abused: No Physically Abused: No Sexually Abused: No Housing Stability: Unknown Unable to Pay for Housing in the Last Year: No Number of Places Lived in the Last Year: Not on file Unstable Housing in the Last Year: No Current Outpatient Medications: amLODIPine 5 MG tablet, Take 5 mg by mouth at bedtime., Disp: , Rfl: Cyanocobalamin (VITAMIN B 12 PO), Take by mouth., Disp: , Rfl: ferrous sulfate 325 (65 Fe) MG Tab tablet, Take 325 mg by mouth., Disp: , Rfl: Loratadine 5 MG Chew Tab, Chew 5 mg Every morning as needed., Disp: , Rfl: Multiple Vitamin (ONE-DAILY MULTIVITAMINS) Tab, Take 1 tablet by mouth Daily (with dinner)., Disp: , Rfl: Multiple Vitamins-Minerals (HAIR SKIN & NAILS ADVANCED PO), Take by mouth., Disp: , Rfl: Ezel-3 Fatty Acids (Fish Oil) 1000 MG capsule, Take 1 capsule by mouth daily., Disp: , Rfl: Probiotic Product (PROBIOTIC-10 PO), Take by mouth., Disp: , Rfl: lisinopril-hydrochlorothiazide 20-12.5 MG per tablet, Take 1 tablet by mouth daily., Disp: 30 tablet, Rfl: 1 ondansetron 4 MG tablet, Take 1 tablet by mouth every 6 hours as needed for Nausea. (Patient not taking: Reported on 10/17/2021), Disp: 30 tablet, Rfl: 5 Patient has no known allergies. ROS: Cardiovascular-no reported chest discomfort or shortness of breath Respiratory-no coughing or wheezing Gastrointestinal-as per chief complaint Extremities-no edema deformity or dysfunction Neurologic-no seizures no tremors Physical Exam: Alert lady no gross apparent distress to evaluation no skin lesions are noted grossly noted no secondary characteristics of liver disease no obvious deformity Cardiovascular-no JVD or ectopy noted Respiratory-no wheezing sputum production or coughing and exam Abdomen-soft nontender Extremities-no edema or deformity no dysfunction grossly Neurologic-no focal deficits no tremor Assessment: [place] criteria positive IBS suspected Increase colonic transit time possibly secondary to above or other etiologies Symptoms controlled with chronic cathartic laxative the appropriate dosages Plan: Cathartic laxative on a daily basis would consider 17 g of MiraLAX daily and titrate Further recommendations pending patient's response documented in this [facility]01-20-2022 History of Present illness Narrative* Clemente Landis MD - 11/14/2021 3:25 PM EST [facility] (22) [facility] [address] [facility] [id number] Subjective: Devyn Corona is a 41 y.o. female seen in the office today for Follow-up HPI: Ms. Corona returns to our office for a brief follow-up visit. She is a delightful 41-year-old female with known history of hypertension was recently evaluated for complaints of dizziness and near syncopal episode. 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 She has had no recurrence of dizziness or near syncope since her initial visit. Denies any complaints of palpitation. Assessment & Plan: 1. Bradycardia Ms. Corona's baseline heart rate is in mid 40s to mid 50s per minute. 30-day event recorder showednocturnal bradycardia without any evidence of advanced conduction system abnormalities. On 2020 she exercised on Herb protocol for 9 minutes 43 seconds achieved 11.2 METS of cardiac workload and 86% of maximum predicted heart rate with appropriate heart rate response with exercise. Anechocardiogram on 09/12/2021 showed normal left ventricular systolic function with ejection fraction 65 to 70% with no significant valvular abnormalities. Ms. Corona's baseline bradycardia is most likely due to high degree of conditioning. She demonstrated chronotropic competence during Herb protocol stress test and 30-day event recorder did not show any evidence of advanced conduction system abnormalities. Asymptomatic nocturnal bradycardia was recorded. We will continue to monitor her clinically. 2. Essential hypertension Since her last visit, she attempted to increased her Norvasc to 10 mg to discontinue lisinopril. However, due to nonspecific arm discomfort she is now taking combination of lisinopril/HCTZ and 5 mg of Norvasc with excellent BP control. Appears to be tolerating well without any side effects. Advisedher to maintain home BP log for your review. Assessment Vitals: Vitals: 11/14/21 1508 11/14/21 1509 BP: 119/71 114/73 BP Location: Left arm Right arm Patient Position: Sitting BP Cuff Size: Adult Pulse: (!) 56 (!) 47 Weight: 70.9 kg (156 lb 3.2 oz) EKG Interpretation: . This note was dictated using voice-recognition software for expedited communication. Please kindly excuse any typos or mis-recognized words. Follow Up Ordered: No follow-ups on file. Clemente Landis MD Histories: Past Medical History: Diagnosis Date Arthritis Bradycardia Hypertension 2019 Past Surgical History: Procedure Laterality Date ARTHROSCOPY KNEE Right 10/07/2019 Procedure: Right knee arthroscopy with screw removal, partial meniscectomy, abrasion chondroplasty ; Surgeon: Melody Fuentes MD; Location: Main OR; Service: Orthopedic BREAST AUGMENTATION Bilateral KNEE SURGERY X3 Family History Problem Relation Age of Onset Clotting disorder Maternal Grandmother Social History Tobacco Use Smoking status: Never Smoker Smokeless tobacco: Never Used Substance Use Topics Alcohol use: Yes Alcohol/week: 1.0 standard drink Types: 1 Glasses of wine per week Comment: occasional-- states drinking 4 beers last night Drug use: No Patient's Medications New Prescriptions No medications on file Previous Medications AMLODIPINE (NORVASC) 5 MG TABLET Take 2 (two) tablets (10 mg total) by mouth at bedtime . CYANOCOBALAMIN, VITAMIN B-12, 1,000 MCG/ML DROP Take by mouth . FERROUS SULFATE 325 (65 FE) MG TABLET Take 325 mg by mouth daily with breakfast . LACTOBAC NO.41/BIFIDOBACT NO.7 (PROBIOTIC-10 ORAL) Take by mouth daily . LISINOPRIL-HYDROCHLOROTHIAZIDE (PRINZIDE,ZESTORETIC) 20-12.5 MG PER TABLET Take 1 tablet by mouth daily . LORATADINE (CLARITIN) 5 MG CHEWABLE TABLET Chew and Swallow 5 mg . MULTIVITAMIN (MULTIVITAMIN) PER TABLET Take 1 tablet by mouth daily . OMEGA-3 FATTY ACIDS-FISH OIL 340-1,000 MG CAP Take 1 capsule by mouth daily . Modified Medications No medications on file Discontinued Medications LISINOPRIL (PRINIVIL,ZESTRIL) 20 MG TABLET Take 20 mg by mouth daily . No Known Allergies Review of Systems Constitutional: Negative for diaphoresis, malaise/fatigue, weight gain and weight loss. HENT: Negative for hearing loss, nosebleeds and tinnitus. Eyes: Negative for blurred vision and visual disturbance. Cardiovascular: Negative for chest pain, claudication, cyanosis, dyspnea on exertion, irregular heartbeat, leg swelling, near-syncope, orthopnea, palpitations, paroxysmal nocturnal dyspnea and syncope. Respiratory: Negative for hemoptysis, shortness of breath and snoring. Endocrine: Negative for cold intolerance and heat intolerance. Hematologic/Lymphatic: Does not bruise/bleed easily. Skin: Negative for flushing, poor wound healing and rash. Musculoskeletal: Negative for back pain, muscle weakness and myalgias. Gastrointestinal: Negative for abdominal pain, change in bowel habit, melena, nausea and vomiting. Genitourinary: Negative for decreased libido and hematuria. Neurological: Negative for loss of balance and numbness. Psychiatric/Behavioral: Negative for memory loss. The patient is not nervous/anxious. Overview of Problems Addressed: No problems updated. Objective: Physical Exam Constitutional: General: Vital signs are normal. Appearance: She is well-developed. Neck: Vascular: No JVD. Cardiovascular: Rate and Rhythm: Normal rate and regular rhythm. Pulses: Carotid pulses are 2+ on the left side. Dorsalis pedis pulses are 2+ on the right side and 2+ on the left side. Heart sounds: Normal heart sounds, S1 normal and S2 normal. Pulmonary: Breath sounds: Normal breath sounds. Abdominal: General: Bowel sounds are normal. Palpations: Abdomen is soft. Skin: General: Skin is warm. Neurological: Mental Status: She is alert and oriented to person, place, and time. Psychiatric: Mood and Affect: Mood and affect normal. * Natalya Chawla RN - 11/14/2021 3:07 PM EST Review of Systems Constitutional: Negative for diaphoresis, malaise/fatigue, weight gain and weight loss. HENT: Negative for hearing loss, nosebleeds and tinnitus. Eyes: Negative for blurred vision and visual disturbance. Cardiovascular: Negative for chest pain, claudication, cyanosis, dyspnea on exertion, irregular heartbeat, leg swelling, near-syncope, orthopnea, palpitations, paroxysmal nocturnal dyspnea and syncope. Respiratory: Negative for hemoptysis, shortness of breath and snoring. Endocrine: Negative for cold intolerance and heat intolerance. Hematologic/Lymphatic: Does not bruise/bleed easily. Skin: Negative for flushing, poor wound healing and rash. Musculoskeletal: Negative for back pain, muscle weakness and myalgias. Gastrointestinal: Negative for abdominal pain, change in bowel habit, melena, nausea and vomiting. Genitourinary: Negative for decreased libido and hematuria. Neurological: Negative for loss of balance and numbness. Psychiatric/Behavioral: Negative for memory loss. The patient is not nervous/anxious. documented in this [id number] Instructions* Patient Instructions* Natalya Chawla RN - 11/14/2021 3:07 PM EST We will see you back in the office: Labs: Medication Changes: We have scheduled you for the following testing: Our office will call to schedule you after insurance prior authorization is completed If you have any questions regarding testing or appointments, please call Natalya JANE at [phone]. The associates caring for you today were: Registration: Doug Nursing: Natalya JANE Physician : Dr. Landis Our goal is to provide you with exceptional patient care and we strive to do this for every patient, every visit. Because we CARE about you and your experience, you may receive a Patient Satisfaction Survey in themail or via email within the next week. We truly welcome your feedback and would ask that you complete the survey to let us know how we are doing. If you have a compliment or a concern regarding your experience today, we encourage you to call [facility] at . If you have a specific questions regarding billing, please contact the [facility] Patient Accounts Department at . documented in this [id number] History of Present illness Narrative* Clemente Landis MD - 10/29/2021 1:17 PM EST [facility] (22) [facility] [address] [facility] [id number] Subjective: Devyn Corona is a 41 y.o. female seen in the office today for Follow-up HPI: Ms. Corona returns to our office for a brief follow-up visit following her 30- day event recorder. She is a delightful 41-year-old female with known history of hypertension was recently evaluated for complaints of dizziness and near syncopal episode. 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 Since her last visit she has had no symptoms of dizziness ornear syncope. Denies any complaints of palpitation. Assessment & Plan: 1. Bradycardia Ms. Corona's baseline heart rate is in mid 40s to mid 50s per minute. 30-day event recorder showednocturnal bradycardia without any evidence of advanced conduction system abnormalities. On 2020 she exercised on Herb protocol for 9 minutes 43 seconds achieved 11.2 METS of cardiac workload and 86% of maximum predicted heart rate with appropriate heart rate response with exercise. Anechocardiogram on 09/12/2021 showed normal left ventricular systolic function with ejection fraction 65 to 70% with no significant valvular abnormalities. Ms. Corona's baseline bradycardia is most likely due to high degree conditioning. She demonstrated chronotropic competence during Herb protocol stress test and 30-day event recorder did not show any evidence of advanced conduction system abnormalities. Asymptomatic nocturnal bradycardia was recorded. We will continue to monitor her clinically. 2. Essential hypertension Since addition of 5 mg of Norvasc systolic blood pressure has been well controlled. Ms. Corona expressed a desire to increase the Norvasc to 10 mg once a day and to discontinue lisinopril HCTZ combination. After discussion regarding potential side effect of ankle edema, we mutually agreed to proceed with the change with careful monitoring of her home BP log. 3. SOB (shortness of breath) on exertion Symptom has mostly resolved. Echocardiogram on 09/12/2021 showed normal left ventricular systolic function with ejection fraction 65 to 70% without any significant valvular abnormalities Assessment Vitals: Vitals: 10/28/21 1511 10/28/21 1513 BP: 126/85 (!) 145/83 BP Location: Right arm Left arm Patient Position: Sitting Sitting BP Cuff Size: Adult Adult Pulse: (!) 50 (!) 49 Weight: 70.8 kg (156 lb) EKG Interpretation: . This note was dictated using voice-recognition software for expedited communication. Please kindly excuse any typos or mis-recognized words. Follow Up Ordered: Return in about 2 weeks (around 11/11/2021). Clemente Landis MD Histories: Past Medical History: Diagnosis Date Arthritis Bradycardia Hypertension 2019 Past Surgical History: Procedure Laterality Date ARTHROSCOPY KNEE Right 10/07/2019 Procedure: Right knee arthroscopy with screw removal, partial meniscectomy, abrasion chondroplasty ; Surgeon: Melody Fuentes MD; Location: [facility] OR; Service: Orthopedic BREAST AUGMENTATION Bilateral KNEE SURGERY X3 Family History Problem Relation Age of Onset Clotting disorder Maternal Grandmother Social History Tobacco Use Smoking status: Never Smoker Smokeless tobacco: Never Used Substance Use Topics Alcohol use: Yes Alcohol/week: 1.0 standard drink Types: 1 Glasses of wine per week Comment: occasional-- states drinking 4 beers last night Drug use: No Patient's Medications New Prescriptions No medications on file Previous Medications FERROUS SULFATE 325 (65 FE) MG TABLET Take 325 mg by mouth daily with breakfast . MULTIVITAMIN (MULTIVITAMIN) PER TABLET Take 1 tablet by mouth daily . OMEGA-3 FATTY ACIDS-FISH OIL 340-1,000 MG CAP Take 1 capsule by mouth daily . Modified Medications Modified Medication Previous Medication AMLODIPINE (NORVASC) 5 MG TABLET amLODIPine (NORVASC) 5 MG tablet Take 2 (two) tablets (10 mg total) by mouth at bedtime . Take 1 (one) tablet (5 mg total) by mouth at bedtime . Discontinued Medications LISINOPRIL-HYDROCHLOROTHIAZIDE (PRINZIDE,ZESTORETIC) 20-12.5 MG PER TABLET Take 1 tablet by mouth daily . No Known Allergies Review of Systems Constitutional: Negative for diaphoresis, malaise/fatigue, weight gain and weight loss. HENT: Negative for hearing loss, nosebleeds and tinnitus. Eyes: Negative for blurred vision and visual disturbance. Cardiovascular: Negative for chest pain, claudication, cyanosis, dyspnea on exertion, irregular heartbeat, leg swelling, near-syncope, orthopnea, palpitations, paroxysmal nocturnal dyspnea and syncope. Respiratory: Negative for hemoptysis, shortness of breath and snoring. Endocrine: Negative for cold intolerance and heat intolerance. Hematologic/Lymphatic: Does not bruise/bleed easily. Skin: Negative for flushing, poor wound healing and rash. Musculoskeletal: Negative for back pain, muscle weakness and myalgias. Gastrointestinal: Negative for abdominal pain, change in bowel habit, melena, nausea and vomiting. Genitourinary: Negative for decreased libido and hematuria. Neurological: Negative for loss of balance and numbness. Psychiatric/Behavioral: Negative for memory loss. The patient is not nervous/anxious. Overview of Problems Addressed: No problems updated. Objective: Physical Exam Constitutional: Appearance: She is well-developed. Neck: Vascular: No JVD. Cardiovascular: Rate and Rhythm: Normal rate and regular rhythm. Pulses: Carotid pulses are 2+ on the left side. Dorsalis pedis pulses are 2+ on the right side and 2+ on the left side. Heart sounds: Normal heart sounds, S1 normal and S2 normal. Pulmonary: Breath sounds: Normal breath sounds. Abdominal: General: Bowel sounds are normal. Palpations: Abdomen is soft. Skin: General: Skin is warm. Neurological: Mental Status: She is alert and oriented to person, place, and time. * Natalya Chawla RN - 10/28/2021 3:10 PM EST Review of Systems Constitutional: Negative for diaphoresis, malaise/fatigue, weight gain and weight loss. HENT: Negative for hearing loss, nosebleeds and tinnitus. Eyes: Negative for blurred vision and visual disturbance. Cardiovascular: Negative for chest pain, claudication, cyanosis, dyspnea on exertion, irregular heartbeat, leg swelling, near-syncope, orthopnea, palpitations, paroxysmal nocturnal dyspnea and syncope. Respiratory: Negative for hemoptysis, shortness of breath and snoring. Endocrine: Negative for cold intolerance and heat intolerance. Hematologic/Lymphatic: Does not bruise/bleed easily. Skin: Negative for flushing, poor wound healing and rash. Musculoskeletal: Negative for back pain, muscle weakness and myalgias. Gastrointestinal: Negative for abdominal pain, change in bowel habit, melena, nausea and vomiting. Genitourinary: Negative for decreased libido and hematuria. Neurological: Negative for loss of balance and numbness. Psychiatric/Behavioral: Negative for memory loss. The patient is not nervous/anxious. documented in this [id number] Instructions* Patient Instructions* Natalya Chawla RN - 10/28/2021 3:11 PM EST We will see you back in the office: 2 weeks Increase Amlodipine to 10mg Every day (take 2 tablets of 5 mg) Call our office when you need a new Rx. Our office will call to schedule you after insurance prior authorization is completed If you have any questions regarding testing or appointments, please call Natalya JANE at [phone]. The associates caring for you today were: Registration: Doug Nursing: Natalya JANE Physician : Dr. Landis Our goal is to provide you with exceptional patient care and we strive to do this for every patient, every visit. Because we CARE about you and your experience, you may receive a Patient Satisfaction Survey in themail or via email within the next week. We truly welcome your feedback and would ask that you complete the survey to let us know how we are doing. If you have a compliment or a concern regarding your experience today, we encourage you to call ouroffice at . If you have a specific questions regarding billing, please contact the [facility] Patient Accounts Department at . documented in this [id number] History of Present illness Narrative* Osmar Garcia MD - 10/17/2021 1:40 PM EST HPI: Patient presents for Chief Complaint Patient presents with Hypertension Hypertension She presents for follow-up of hypertension. She indicates that she is feeling well and denies any symptoms referable to her elevated blood pressure. Specifically denies all listed. Current medicationregimen is as listed in this record. She is currently experiencing the following side effects from her medication: none. She does check blood pressure at home Review of Systems Constitutional: Negative. HENT: Negative. Respiratory: Negative. Cardiovascular: Negative. Physical Exam Vitals and nursing note reviewed. Constitutional: Appearance: Normal appearance. Cardiovascular: Rate and Rhythm: Normal rate and regular rhythm. Pulses: Normal pulses. Heart sounds: Normal heart sounds. Pulmonary: Effort: Pulmonary effort is normal. Breath sounds: Normal breath sounds. Neurological: Mental Status: She is alert. Vitals: 10/17/21 1338 BP: (!) 155/91 Pulse: 56 Temp: 97.8 F (36.6 C) No Known Allergies Family History Problem Relation Age of Onset Lung Cancer Father Other - Specify Son 5 P minus syndrome Past Surgical History: Procedure Laterality Date HYSTERECTOMY TOTAL ABDOMINAL LAPAROSCOPIC W/ REMOVAL TUBES/OVARIES Midline 04/16/2021 Laterality: Midline; Surgeon: Matty Donaldson MD; Location: [facility] EGD DIAGNOSTIC N/A 01/01/2021 Laterality: N/A; Surgeon: Wilder Hale MD; Location: [facility] ONT ENDOSCOPY COLONOSCOPY DIAGNOSTIC N/A 01/01/2021 Laterality: N/A; Surgeon: Wilder Hale MD; Location: [facility] ENDOSCOPY AUGMENTATION BREAST 2010 KNEE SURGERY Right x3 KNEE SURGERY Left STOMACH SURGERY tummy tuck TUBAL LIGATION Social History Socioeconomic History Marital status: Spouse name: Not on file Number of children: Not on file Years of education: Not on file Highest education level: Not on file Occupational History Not on file Tobacco Use Smoking status: Never Smoker Smokeless tobacco: Never Used Vaping Use Vaping Use: Never used Substance and Sexual Activity Alcohol use: Yes Comment: consumes socially Drug use: Never Sexual activity: Yes Partners: Male control/protection: Tubal Ligation, Hysterectomy Other Topics Concern Service Not Asked Blood Transfusions Not Asked Caffeine Concern Not Asked Occupational Exposure Not Asked Hobby Hazards Not Asked Sleep Concern Not Asked Stress Concern Not Asked Weight Concern Not Asked Special Diet Not Asked Back Care Not Asked Exercise Not Asked Bike Helmet Not Asked Seat Belt Not Asked Domestic Violence No Social History Narrative Not on file Social Determinants of Health Financial Resource Strain: Low Risk Difficulty of Paying Living Expenses: Not very hard Food Insecurity: No Food Insecurity Worried About Running Out of Food in the Last Year: Never true Ran Out of Food in the Last Year: Never true Transportation Needs: No Transportation Needs Lack of Transportation (Medical): No Lack of Transportation (Non-Medical): No Physical Activity: Not on file Stress: Not on file Social Connections: Unknown Frequency of Communication with Friends and Family: Once a week Frequency of Social Gatherings with Friends and Family: Once a week Attends Synagogue Services: Not on file Active Member of Clubs or Organizations: Not on file Attends Club or Organization Meetings: Not on file Marital Status: Intimate Partner Violence: Not At Risk Fear of Current or Ex-Partner: No Emotionally Abused: No Physically Abused: No Sexually Abused: No Housing Stability: Unknown Unable to Pay for Housing in the Last Year: No Number of Places Lived in the Last Year: Not on file Unstable Housing in the Last Year: No Past Medical History: Diagnosis Date Anemia Bradycardia Depression GERD (gastroesophageal reflux disease) occasional Migraine Current Outpatient Medications: amLODIPine 5 MG tablet, Take 5 mg by mouth at bedtime., Disp: , Rfl: Cyanocobalamin (VITAMIN B 12 PO), Take by mouth., Disp: , Rfl: ferrous sulfate 325 (65 Fe) MG Tab tablet, Take 325 mg by mouth., Disp: , Rfl: lisinopril-hydrochlorothiazide 20-12.5 MG per tablet, Take 1 tablet by mouth daily., Disp: 30 tablet, Rfl: 1 Loratadine 5 MG Chew Tab, Chew 5 mg Every morning as needed., Disp: , Rfl: Multiple Vitamin (ONE-DAILY MULTIVITAMINS) Tab, Take 1 tablet by mouth Daily (with dinner)., Disp: , Rfl: Multiple Vitamins-Minerals (HAIR SKIN & NAILS ADVANCED PO), Take by mouth., Disp: , Rfl: Ezel-3 Fatty Acids (Fish Oil) 1000 MG capsule, Take 1 capsule by mouth daily., Disp: , Rfl: Probiotic Product (PROBIOTIC-10 PO), Take by mouth., Disp: , Rfl: ondansetron 4 MG tablet, Take 1 tablet by mouth every 6 hours as needed for Nausea. (Patient not taking: Reported on 10/17/2021), Disp: 30 tablet, Rfl: 5 Labs: All recent labs/test reviewed. Assessment & Plan No diagnosis found. Orders Placed This Encounter amLODIPine 5 MG tablet Medications are to be taken as directed. Osmar Garcia MD 10/17/2021 * Marjorie Chase MA - 10/17/2021 1:40 PM EST HPI: Patient presents for Chief Complaint Patient presents with Hypertension Hypertension She presents for follow-up of hypertension. She indicates that she is feeling well and denies any symptoms referable to her elevated blood pressure. Specifically denies all listed. Current medicationregimen is as listed in this record. She is currently experiencing the following side effects from her medication: none. She does check blood pressure at home [facility] History of Present illness Narrative* Clemente Landis MD - 10/06/2021 10:27 AM EST Nocturnal asymptomatic bradycardia detected. Spoke and reassured the patient. documented in this [id number] History of Present illness Narrative* Clemente Landis MD - 09/03/2021 2:52 PM EST [facility] (22) [facility] [address] [facility] [id number] Subjective: Devyn Corona is a 41 y.o. female seen in the office today for No chief complaint on file. HPI: Thank you very much for your referral. I had the pleasure to meet Ms. Corona today in our office. She is a delightful 41-year-old female with known history of hypertension has been experiencing symptoms of dizziness and near syncopal episode. Reports symptoms of shortness of breath during her exercise. 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 She has had no recent complaints of palpitation. Assessment & Plan: 1. Bradycardia Twelve-lead electrocardiogram today in our office sinus bradycardia at a rate of 48 without any conduction system abnormalities. No preexcitation was noted. Her slow heart rate, most likely due to excellent conditioning by regular exercise. However, with recent complaints of dizziness and near syncopal episode, I have requested a Herb protocol stress test to assess the chronotropic response to ex ercise. In 2016 she had a normal Herb protocol stress test. 2. Near syncope Ms. Corona reports dizziness associated with near syncopal episode. As mentioned above, twelve-lead electrocardiogram today in our office showed sinus bradycardia at a rate of 48/min. No conduction system abnormalities noted. Today I have requested a 30-day event recorder to correlate its her symptom with associated cardiac rhythm. - 3. Essential hypertension Blood pressure today in our office is elevated. Patient also reports uncontrolled systolic pressureat home. Recently her lisinopril HCTZ dose was increased without any significant response. I have discussed with her in depth and explained to Ms. Corona possible underlying etiology for uncontrolled systolic blood pressure. She is not at high risk for obstructive sleep apnea, however, I have recommended a sleep study to exclude a potential underlying etiology for uncontrolled systolic blood pressure. Based on her laboratory data, intolerance to LIZZIE inhibitor, I do not think renal artery stenosis is highly likely. She has no clinical symptoms suggestive of endocrine tumors. Pending further work-up, I have added 5 mg of Norvasc every evening and advised her to maintain home BP log for your review. 4. SOB (shortness of breath) on exertion Etiology unknown she maintains very healthy lifestyle with regular exercise. Requested an echocardiogram to evaluate her left and right ventricular function and to assess pulmonary pressure by Doppler study. Patient had a normal echocardiogram in the past. - Assessment Vitals: Vitals: 09/03/21 1348 09/03/21 1349 BP: (!) 175/91 (!) 185/111 BP Location: Right arm Left arm Patient Position: Sitting Sitting BP Cuff Size: X-large Adult X-large Adult Pulse: 76 (!) 52 Weight: 69.4 kg (153 lb) EKG Interpretation: Twelve-lead electrocardiogram today in our office showed sinus bradycardia at arate of 48/min without any conduction system abnormalities.. This note was dictated using voice-recognition software for expedited communication. Please kindly excuse any typos or mis-recognized words. Follow Up Ordered: Return after testing. Clemente Landis MD Histories: Past Medical History: Diagnosis Date Arthritis Bradycardia Hypertension 2019 Past Surgical History: Procedure Laterality Date ARTHROSCOPY KNEE Right 10/07/2019 Procedure: Right knee arthroscopy with screw removal, partial meniscectomy, abrasion chondroplasty ; Surgeon: Melody Fuentes MD; Location: [place]; Service: Orthopedic BREAST AUGMENTATION Bilateral KNEE SURGERY X3 Family History Problem Relation Age of Onset Clotting disorder Maternal Grandmother Social History Tobacco Use Smoking status: Never Smoker Smokeless tobacco: Never Used Substance Use Topics Alcohol use: Yes Alcohol/week: 1.0 standard drink Types: 1 Glasses of wine per week Comment: occasional-- states drinking 4 beers last night Drug use: No Patient's Medications New Prescriptions AMLODIPINE (NORVASC) 5 MG TABLET Take 1 (one) tablet (5 mg total) by mouth at bedtime . Previous Medications FERROUS SULFATE 325 (65 FE) MG TABLET Take 325 mg by mouth daily with breakfast . LISINOPRIL-HYDROCHLOROTHIAZIDE (PRINZIDE,ZESTORETIC) 20-12.5 MG PER TABLET Take 1 tablet by mouth daily . MULTIVITAMIN (MULTIVITAMIN) PER TABLET Take 1 tablet by mouth daily . OMEGA-3 FATTY ACIDS-FISH OIL 340-1,000 MG CAP Take 1 capsule by mouth daily . Modified Medications No medications on file Discontinued Medications LORATADINE (CLARITIN) 5 MG CHEWABLE TABLET Chew and Swallow 5 mg daily as needed for allergies . ONDANSETRON (ZOFRAN ODT) 4 MG DISINTEGRATING TABLET Dissolve 1 (one) tablet (4 mg total) on top of tongue every 8 (eight) hours as needed for nausea . PANTOPRAZOLE (PROTONIX) 40 MG TABLET Take 1 (one) tablet (40 mg total) by mouth daily for 14 days . No Known Allergies Review of Systems Constitutional: Negative for diaphoresis, malaise/fatigue, weight gain and weight loss. HENT: Negative for hearing loss, nosebleeds and tinnitus. Eyes: Negative for blurred vision and visual disturbance. Cardiovascular: Positive for near-syncope. Negative for chest pain, claudication, cyanosis, dyspneaon exertion, irregular heartbeat, leg swelling, orthopnea, palpitations, paroxysmal nocturnal dyspnea and syncope. Respiratory: Positive for shortness of breath. Negative for hemoptysis and snoring. Endocrine: Negative for cold intolerance and heat intolerance. Hematologic/Lymphatic: Does not bruise/bleed easily. Skin: Negative for flushing, poor wound healing and rash. Musculoskeletal: Negative for back pain, muscle weakness and myalgias. Gastrointestinal: Negative for abdominal pain, change in bowel habit, melena, nausea and vomiting. Genitourinary: Negative for decreased libido and hematuria. Neurological: Positive for dizziness. Negative for loss of balance and numbness. Psychiatric/Behavioral: Negative for memory loss. The patient is not nervous/anxious. Overview of Problems Addressed: Problem Essential Hypertension Near Syncope Sob (Shortness of Breath) On Exertion Objective: Physical Exam Constitutional: Appearance: She is well-developed. Neck: Vascular: No JVD. Cardiovascular: Rate and Rhythm: Normal rate and regular rhythm. Pulses: Carotid pulses are 2+ on the left side. Dorsalis pedis pulses are 2+ on the right side and 2+ on the left side. Heart sounds: Normal heart sounds, S1 normal and S2 normal. Pulmonary: Breath sounds: Normal breath sounds. Abdominal: General: Bowel sounds are normal. Palpations: Abdomen is soft. Skin: General: Skin is warm. Neurological: Mental Status: She is alert and oriented to person, place, and time. * Natalya Chawla RN - 09/03/2021 1:25 PM EST Review of Systems Constitutional: Negative for diaphoresis, malaise/fatigue, weight gain and weight loss. HENT: Negative for hearing loss, nosebleeds and tinnitus. Eyes: Negative for blurred vision and visual disturbance. Cardiovascular: Negative for chest pain, claudication, cyanosis, dyspnea on exertion, irregular heartbeat, leg swelling, near-syncope, orthopnea, palpitations, paroxysmal nocturnal dyspnea and syncope. Respiratory: Negative for hemoptysis, shortness of breath and snoring. Endocrine: Negative for cold intolerance and heat intolerance. Hematologic/Lymphatic: Does not bruise/bleed easily. Skin: Negative for flushing, poor wound healing and rash. Musculoskeletal: Negative for back pain, muscle weakness and myalgias. Gastrointestinal: Negative for abdominal pain, change in bowel habit, melena, nausea and vomiting. Genitourinary: Negative for decreased libido and hematuria. Neurological: Negative for loss of balance and numbness. Psychiatric/Behavioral: Negative for memory loss. The patient is not nervous/anxious. documented in this [id number] Instructions* Patient Instructions* Natalya Chawla RN - 09/03/2021 2:18 PM EST We will see you back in the office: after Testing Medication Changes: New Amlodipine (Norvasc) 5 mg every day - at bedtime We have scheduled you for the following testing: Echocardiogram Cardiac Stress Test - Exercise only Cardiac Event monitor 30 day Our office will call to schedule you after insurance prior authorization is completed You will NOT need a COVID test prior to this procedure since you are vaccinated for COVID. Stress Test Instructions Please take ALL medications in the morning as usual. Also Bring All Medications with you to the stress test. No caffeine or alcohol for 24 hours prior to testing. No caffeine, decaf, or caffeine products, such as chocolate, can be taken for 24 hours prior to having your test. If you are taking pczn-xno-[id number] medications, such as cold tablets or pain relievers, make sure that caffeine is not an ingredient. Your test will be cancelled if you have consumed any caffeine. Please call the office ABUNDIO if youconsume caffeine. Do not smoke the morning of the test. Nothing to eat or drink after midnight. You can take your morning medications with a sip of water (except for indicated medications) Wear a loose fitting T shirt and comfortable shoes to test. All cancellations should be made at least twenty four hours prior to the scheduled time of service. If you have any questions regarding testing or appointments, please call Natalya JANE at [phone]. The associates caring for you today were: Registration: Doug Nursing: Natalya JANE Physician : Dr. Landis Our goal is to provide you with exceptional patient care and we strive to do this for every patient, every visit. Because we CARE about you and your experience, you may receive a Patient Satisfaction Survey in themail or via email within the next week. We truly welcome your feedback and would ask that you complete the survey to let us know how we are doing. If you have a compliment or a concern regarding your experience today, we encourage you to call ouroffice at . If you have a specific questions regarding billing, please contact the [facility] Patient Accounts Department at . documented in this [id number] History of Present illness Narrative* Matty Donaldson MD - 05/07/2021 2:50 PM EDT History of Present Illness Patient presents for postop exam. Patient is status post robotic-assisted laparoscopic hysterectomyand bilateral salpingectomy on 04/16/2021. Patient is doing well. Final path report was consistent with fibroids with uterus weighing approximately 275 g. Patient is doing well and describes normal bowel bladder function. Review of Systems Constitutional: Negative. Negative for activity change, appetite change, chills, diaphoresis, fatigue and fever. HENT: Negative. Negative for congestion and dental problem. Eyes: Negative for discharge and itching. Respiratory: Negative for apnea, cough, chest tightness, shortness of breath and wheezing. Cardiovascular: Negative for chest pain and leg swelling. Gastrointestinal: Negative for abdominal distention, abdominal pain and nausea. Endocrine: Negative for cold intolerance, heat intolerance, polydipsia and polyuria. Genitourinary: Negative for decreased urine volume, difficulty urinating, dysuria and genital sores. Musculoskeletal: Negative for arthralgias, back pain, gait problem and joint swelling. Skin: Negative for color change, pallor and rash. Allergic/Immunologic: Negative. Neurological: Negative for dizziness, tremors, seizures, weakness, light- headedness and headaches. Hematological: Negative for adenopathy. Does not bruise/bleed easily. Psychiatric/Behavioral: Negative for agitation, behavioral problems, hallucinations and suicidal ideas. The patient is not nervous/anxious. Vitals: Blood pressure 108/62, height 5' 6 (1.676 m), weight 152 lb (68.9 kg), last menstrual period 01/01/2021. Physical Exam Abdominal: General: Bowel sounds are normal. There is no distension. Palpations: Abdomen is soft. There is no mass. Tenderness: There is no abdominal tenderness. There is no guarding or rebound. Comments: Incisions healing well. Genitourinary: Comments: External genitalia normal. Vagina pink, rugose, and healing well. Vaginal cuff intact without masses. Bimanual with cervix and uterus surgically absent. Area of the adnexa benign, nontender, without masses Skin: General: Skin is warm and dry. Neurological: Mental Status: She is alert and oriented to person, place, and time. Psychiatric: Judgment: Judgment normal. Neurological Exam Mental Status Alert. Assessment and Plan 1. Postoperative examination Normal exam status post robotic-assisted lap scopic hysterectomy and bilateral salpingectomy. Patient doing well. Follow-up in 1 year. Limits and activity discussed. Return in about 1 year (around 05/07/2022) for with [facility], Annual Exam. The documentation within this encounter was likely aided with Blip, and electronic cranberry grower device. Please excuse any errors or omissions that may not have been recognized at the time of this encounter. [facility] Postoperative examination- Primary Follow-up examination, following unspecified surgery documented in this [facility] note* Diagnosis Bradycardia- Primary Other specified cardiac dysrhythmias Near syncope Essential hypertension Unspecified essential hypertension SOB (shortness of breath) on exertion Shortness of breath documented in this encounter [facility] note* Diagnosis Hypertension, unspecified type- Primary documented in this encounter [facility] note* Diagnosis Essential hypertension- Primary Unspecified essential hypertension documented in this [facility]* Diagnosis Bradycardia- Primary Other specified cardiac dysrhythmias Essential hypertension Unspecified essential hypertension SOB (shortness of breath) on exertion Shortness of breath [facility] Diagnosis Essential hypertension- Primary Unspecified essential hypertension Bradycardia Other specified cardiac dysrhythmias [facility]* Diagnosis Constipation, unspecified constipation type- Primary Irritable bowel syndrome with diarrhea Irritable bowel syndrome documented in this [facility]* Diagnosis S/P right knee arthroscopy- Primary documented in this encounter [facility] note* Diagnosis Essential hypertension- Primary Unspecified essential hypertension documented in this [facility]* Diagnosis S/P right knee arthroscopy- Primary [facility]nee instability, [facility] Onset Date Resolution Status Fatigue acute Bradycardia chronic Essential (primary) hypertension chronic [place] (dyspnea on exertion) ac [place] Fatigue acute Essential (primary) hypertension chronic [facility] Work Phone: Evaluation noteNo assessment information available [facility] Work Phone: Evaluation note* Diagnosis Epigastric pain- Primary Abdominal pain, epigastric LUQ pain Abdominal pain, left upper quadrant Chronic constipation Unspecified constipation Esophageal dysphagia Dysphagia, pharyngoesophageal phase [facility] Diagnosis Epigastric pain Abdominal pain, epigastric Dysphagia [facility]* Diagnosis [facility]agia [facility] Diagnosis Epigastric pain Abdominal pain, epigastric [facility] Diagnosis S/P right knee arthroscopy- Primary Knee instability, right [facility]* Diagnosis Onset Date Resolution Status Back pain acute Segmental and somatic dysfunction of lumbar region acute Segmental and somatic dysfunction of pelvic region acute [facility] Work Phone: Evaluation note* Diagnosis Onset Date Resolution Status Back pain acute Segmental and somatic dysfunction of lumbar region acute Segmental and somatic dysfunction of pelvic region acute Back pain acute Segmental and somatic dysfunction of cervical region acute Segmental and somatic dysfunction of lumbar region acute Segmental and somatic dysfunction of pelvic region acute Segmental and somatic dysfunction of thoracic region acute [facility] Work Phone: Evaluation note* Diagnosis S/P right knee arthroscopy- Primary Knee instability, right Osteoarthritis of right knee, unspecified osteoarthritis type [facility]* Diagnosis Osteoarthritis of right knee Osteoarthrosis, unspecified whether generalized or localized, lower leg Knee instability, right S/P right knee arthroscopy Osteoarthritis of right knee, unspecified osteoarthritis type Osteoarthritis of right knee, unspecified osteoarthritis type Knee instability, right S/P right knee arthroscopy [facility]* Diagnosis Osteoarthritis of right knee Osteoarthrosis, unspecified whether generalized or localized, lower leg Knee instability, right S/P right knee arthroscopy Primary osteoarthritis of right knee- Primary Osteoarthritis of right knee, unspecified osteoarthritis type Knee instability, right S/P right knee arthroscopy [facility] Osteoarthritis of right knee Osteoarthrosis, unspecified whether generalized or localized, lower leg Knee instability, right S/P right knee arthroscopy Primary osteoarthritis of right knee- Primary Osteoarthritis of right knee, unspecified osteoarthritis type Knee instability, right S/P right knee arthroscopy [facility] Diagnosis Osteoarthritis of right knee Osteoarthrosis, unspecified whether generalized or localized, lower leg Knee instability, right S/P right knee arthroscopy Primary osteoarthritis of right knee- Primary Osteoarthritis of right knee, unspecified osteoarthritis type Knee instability, right S/P right knee arthroscopy [facility] Diagnosis Osteoarthritis of right knee Osteoarthrosis, unspecified whether generalized or localized, lower leg Knee instability, right S/P right knee arthroscopy Primary osteoarthritis of right knee- Primary Osteoarthritis of right knee, unspecified osteoarthritis type Knee instability, right S/P right knee arthroscopy [facility] Diagnosis Osteoarthritis of right knee Osteoarthrosis, unspecified whether generalized or localized, lower leg Knee instability, right S/P right knee arthroscopy S/P right knee arthroscopy- Primary Knee instability, right Osteoarthritis of right knee, unspecified osteoarthritis type Hypertension, unspecified type Osteoarthritis of right knee, unspecified osteoarthritis type Knee instability, right S/P right knee arthroscopy [facility] Diagnosis Osteoarthritis of right knee Osteoarthrosis, unspecified whether generalized or localized, lower leg Knee instability, right S/P right knee arthroscopy Osteoarthritis of right knee, unspecified osteoarthritis type- Primary Osteoarthritis of right knee, unspecified osteoarthritis type Knee instability, right S/P right knee [facility]roscopy [facility] S/P total knee arthroplasty, right [facility] Diagnosis Status post total right knee replacement- Primary [facility] Diagnosis Status post total right knee replacement- Primary [facility] Diagnosis Status post total right knee replacement- Primary [facility] Diagnosis Status post total right knee replacement- Primary [facility] Diagnosis Status post total right [facility] replacement- [facility] Status post total right knee replacement- Primary [facility] Diagnosis Status post total right knee replacement- Primary [facility]* Diagnosis Onset Date Resolution Status Admit Date Abdominal pain acute July 13, 2025 1:27pm Mixed irritable bowel syndrome acute July 13, 2025 1:27pm [facility] Work Phone: Hospital Discharge instructions* Attachments The following attachments cannot be sent through Care Everywhere. * Upper GI Endoscopy Discharge Instructions ([place]) [facility] Additional Instructions Ice and take naproxen and the muscle relaxer as needed. You can also add [id number]-skickht Tylenol 1000 mg every 6 hours for additional pain control.[facility] Work Phone: Reason for referral (narrative)No reason for [facility] Summary Purpose Family History Relationship Condition Age at Onset Recorded Date/T sara father Malignant neoplasm Unknown son Cri-du-chat syndrome Unknown Advance Directives Documents on File Type Date Recorded Patient Certified Detention Deputy Expl anation Advance Directives and Livin g Will 03/22/2019 10:46 AM Latest Code Status on File Code Status Date Activated Date Inactivated Comments Full Code 03/22/2019 10:44 AM Healthcare Agents on File Name Relationship Healthcare Agent Relationshi p Communication No Contact Primary healthcare agent Documents on File Type Date Recorded Patient Certified Detention Deputy Expl anation Advance Directives and Livin g Will 03/22/2019 10:46 AM Latest Code Status on File Code Status Date Activated Date Inactivated Comments Full Code 03/22/2019 10:44 AM Healthcare Agents on File Name Relationship Healthcare Agent Relationshi p Communication No Contact Primary healthcare agent Documents on File Type Date Recorded Patient Certified Detention Deputy Expl anation Advance Directives and Livin g Will 03/24/2019 6:05 AM Healthcare Agents on File Name Relationship Healthcare Agent Relationshi p Communication No Contact Primary healthcare agent Healthcare Agents on File Name Relationship Healthcare Agent Relationshi p Communication No Contact Primary healthcare agent Healthcare Agents on File Name Relationship Healthcare Agent Relationshi p Communication No Contact Primary healthcare agent Healthcare Agents on File Name Relationship Healthcare Agent Relationshi p Communication No Contact Primary healthcare agent Documents on File Type Date Recorded Patient Certified Detention Deputy Expl anation Advance Directives and Livin g Will 03/24/2019 6:05 AM Healthcare Agents on File Name Relationship Healthcare Agent Relationshi p Communication No Contact Primary healthcare agent Healthcare Agents on File Name Relationship Healthcare Agent Relationshi p Communication No Contact Primary healthcare agent Healthcare Agents on File Name Relationship Healthcare Agent Relationshi p Communication No Contact Primary healthcare agent Documents on File Type Date Recorded Patient Certified Detention Deputy Expl anation Advance Directives and Livin g Will 08/01/2019 3:14 PM Healthcare Agents on File Name Relationship Healthcare Agent Relationshi p Communication No Contact Primary healthcare agent Healthcare Agents on File Name Relationship Healthcare Agent Relationshi p Communication No Contact Primary healthcare agent Documents on File Type Date Recorded Patient Certified Detention Deputy Expl anation Advance Directives and Livin g Will 10/07/2019 8:13 AM Latest Code Status on File Code Status Date Activated Date Inactivated Comments Full Code 03/22/2019 10:44 AM 10/07/2019 8:14 AM Healthcare Agents on File Name Relationship Healthcare Agent Relationshi p Communication No Contact Primary healthcare agent Documents on File Type Date Recorded Patient Certified Detention Deputy Expl anation Advance Directives and Livin g Will 10/07/2019 8:13 AM Latest Code Status on File Code Status Date Activated Date Inactivated Comments Full Code 03/22/2019 10:44 AM 10/07/2019 8:14 AM Healthcare Agents on File Name Relationship Healthcare Agent Relationshi p Communication No Contact Primary healthcare agent Healthcare Agents on File Name Relationship Healthcare Agent Relationshi p Communication No Contact Primary healthcare agent Documents on File Type Date Recorded Patient Certified Detention Deputy Expl anation Advance Directives and Livin g Will 12/03/2020 8:50 AM Healthcare Agents on File Name Relationship Healthcare Agent Relationshi p Communication No Contact Health Care Agent Healthcare Agents on File Name Relationship Healthcare Agent Relationshi p Communication No Contact Primary healthcare agent Latest Code Status on File Code Status Date Activated Date Inactivated Comments Full Code 04/16/2021 8:10 AM Documents on File Type Date Recorded Patient Certified Detention Deputy Expl anation Advance Directives and Livin g Will 12/03/2020 8:50 AM Healthcare Agents on File Name Relationship Healthcare Agent Relationshi p Communication No Contact Health Care Agent [id number] (Mobile) Healthcare Agents on File Name Relationship Healthcare Agent Relationshi p Communication No Contact Health Care Agent [id number] (Mobile) Healthcare Agents on File Name Relationship Healthcare Agent Relationshi p Communication No Contact Health Care Agent [id number] (Mobile) Healthcare Agents on File Name Relationship Healthcare Agent Relationshi p Communication No Contact Health Care Agent [id number] (Mobile) Healthcare Agents on File Name Relationship Healthcare Agent Relationshi p Communication No Contact Health Care Agent [id number] (Mobile) Healthcare Agents on File Name Relationship Healthcare Agent Relationshi p Communication No Contact Health Care Agent [id number] (Mobile) Healthcare Agents on File Name Relationship Healthcare Agent Relationshi p Communication No Contact Health Care Agent [id number] (Mobile) Healthcare Agents on File Name Relationship Healthcare Agent Relationshi p Communication No Contact Health Care Agent [id number] (Mobile) Latest Code Status on File Code Status Date Activated Date Inactivated Comments Full Code 03/22/2019 10:44 AM 10/07/2019 8:14 AM Healthcare Agents on File Name Relationship Healthcare Agent Relationshi p Communication No Contact Health Care Agent [id number] (Mobile) Latest Code Status on File Code Status Date Activated Date Inactivated Comments Full Code 03/27/2023 12:14 PM 03/27/2023 4:51 PM Latest Code Status on File Code Status Date Activated Date Inactivated Comments Full Code 03/27/2023 12:14 PM 03/27/2023 4:51 PM Healthcare Agents on File Name Relationship Healthcare Agent Relationshi p Communication No Contact Health Care Agent [id number] (Mobile) Advance Directive Response Recorded Date/ Time Living Will No June 02, 2023 9:42am Power of Riveter Portable Machine No June 02 9:42am Advance Directive Response Recorded Date/ Time Living Will No July 28 6:01pm Power of Riveter Portable Machine No July 28 023 6:01pm Advance Directive Response Recorded Date/ Time Living Will No September 15 023 1:27pm Power of Riveter Portable Machine No September 15, 2023 1:27pm Latest Code Status on File Code Status Date Activated Date Inactivated Comments Full Code 03/22/2019 10:44 AM 10/07/2019 8:14 AM Healthcare Agents on File Name Relationship Healthcare Agent Relationshi p Communication No Contact Health Care Agent Healthcare Agents on File Name Relationship Healthcare Agent Relationshi p Communication No Contact Health Care Agent Healthcare Agents on File Name Relationship Healthcare Agent Relationshi p Communication No Contact Health Care Agent Healthcare Agents on File Name Relationship Healthcare Agent Relationshi p Communication No Contact Health Care Agent Healthcare Agents on File Name Relationship Healthcare Agent Relationshi p Communication No Contact Health Care Agent Healthcare Agents on File Name Relationship Healthcare Agent Relationshi p Communication No Contact Health Care Agent Latest Code Status on File Code Status Date Activated Date Inactivated Comments Full Code 12/28/2023 8:45 AM 12/28/2023 7:32 PM Code Status History Code Status Date Activated Date Inactivated Comments Full Code 03/22/2019 10:44 AM 10/07/2019 8:14 AM Latest Code Status on File Code Status Date Activated Date Inactivated Comments Full Code 12/28/2023 8:45 AM 12/28/2023 7:32 PM Code Status History Code Status Date Activated Date Inactivated Comments Full Code 03/22/2019 10:44 AM 10/07/2019 8:14 AM Date Activated Date Inactivated Comments 12/28/2023 8:45 AM 12/28/2023 7:32 PM Date Activated Date Inactivated Comments 03/22/2019 10:44 AM 10/07/2019 8:14 AM Discharge Instructions * Patient Instructions* Love Petty, BUCK - 03/23/2019 3:10 PM EDT A 30 Day Cardiac Event Monitor has been ordered. The company who sends out the monitor will call you to confirm the mailing address. You must answer the call for them to send it to you. Detailed instructions will be provided in the mail along with the monitor. In the pamphlet is a phone number to the company to call if questions about application or any issues with the device. An office visit with Dr Denver Prater at [facility] has been set up for 05/13/19 at 11:30 to go over theresults of the monitor. Any questions or concerns call [phone]. * Attachments The following attachments cannot be sent through Care Everywhere. * Bradycardia ([place]) * Fainting ([place]) documented in this encounter* Instructions* Karen Mota RN - 10/07/2019 GENERAL POST-OPERATIVE PATIENT INSTRUCTIONS ANESTHESIA PRECAUTIONS: A responsible adult must stay with you for at least 24 hours after surgery. You may feel light headed,, dizzy, or nauseated during this time. Do not operate a vehicle (car, bike, motorcycle, design engineering technician) machinery or power tools. Do not make any important decisions or drink any alcoholic beverages for 24 hours. Children should remain quiet today. No riding of bicycles, motorcycles, skateboards, playing on swings etc. Drink plenty of fluids today. Eat light, small, frequent meals today. Resume regular diet tomorrow. FOLLOW-UP: Please make an appointment with your physician for follow-up. Call your physician immediately if you have any fevers greater than 101, drainage from your wound that is not clear or looks infected, persistent bleeding, increasing abdominal pain, problems urinating, or persistent nausea/vomiting. DIET: You may eat any foods that you can tolerate. It is a good idea to eat a high fiber diet and take in plenty of fluids to prevent constipation. If you do become constipated you may want to take amild laxative or take ducolax tablets on a daily basis until your bowel habits are regular. Constipation can be very uncomfortable, along with straining, after recent surgery. ACTIVITY: You are encouraged to cough and deep breathe or use your incentive spirometer if you weregiven one, every 15-30 minutes when awake. This will help prevent respiratory complications and lowgrade fevers post-operatively if you had a general anesthetic. You are encouraged to walk and engage in light activity for the next two weeks. MEDICATIONS: Try to take narcotic medications and anti-inflammatory medications, such as ibuprofen,naprosyn, etc., with food. This will minimize stomach upset from the medication. Should you developnausea and vomiting from the pain medication, or develop a rash, please discontinue the medication and contact your physician. You should not drive, make important decisions, or operate machinery when taking narcotic pain medication. Do not take tylenol or tylenol products with narcotic medications. QUESTIONS: Please feel free to call your physician or the hospital chipping machine operator if you have any questions, and they will be glad to assist you. Knee Arthroscopy: What to Expect at Home Your Recovery Arthroscopy is a way to find problems and do surgery inside a joint without making a large cut (incision). Your doctor put a lighted tube with a tiny camera called an arthroscope, or scope and surgical tools through small incisions in your knee. You will feel tired for several days. Your knee will be swollen, and you may notice that your skin is a different color near the cuts (incisions). The swelling is normal and will start to go away in a few days. Keeping your leg higher than your heart will help with swelling and pain. You will probably need about 6 weeks to recover. If your doctor repaired damaged tissue, recovery will take longer. You may have to limit your activity until your knee strength and movement return tonormal. You may also be in a physical rehabilitation (rehab) program. You may be able to return to a desk job or your normal routine in a few days. But if you do physical labor, it may be as long as 2 months before you can return to work. This care sheet gives you a general idea about how long it will take for you to recover. But each person recovers at a different pace. Follow the steps below to get better as quickly as possible. How can you care for yourself at home? Activity Rest when you feel tired. Getting enough sleep will help you recover. Use pillows to raise your ankle and leg above the level of your heart. Try to walk each day, after your doctor has said you can. Start by walking a little more than you did the day before. Bit by bit, increase the amount you walk. Walking boosts blood flow and helps prevent pneumonia and constipation. You may have a brace or crutches or both. Your doctor will tell you how often and how much you can move your leg and knee. If you have a desk job, you may be able to return to work a few days after the surgery. If you liftthings or stand or walk a lot at work, it may be as long as 2 months before you can return. You can take a shower 48 to 72 hours after surgery and clean the incisions with regular soap and water. Do not take a bath or soak your knee until your doctor says it is okay. Ask your doctor when you can drive again. If you had a repair of torn tissue, follow your doctor's instructions for lifting things or moving your knee. Diet You can eat your normal diet. If your stomach is upset, try bland, low-fat foods like plain rice, broiled chicken, toast, and yogurt. Drink plenty of fluids, unless your doctor tells you not to. You may notice that your bowel movements are not regular right after your surgery. This is common. Try to avoid constipation and straining with bowel movements. You may want to take a fiber supplement every day. If you have not had a bowel movement after a couple of days, ask your doctor about taking a mild laxative. Medicines Your doctor will tell you if and when you can restart your medicines. He or she will also give you instructions about taking any new medicines. If you take aspirin or some other blood thinner, ask your doctor if and when to start taking it again. Make sure that you understand exactly what your doctor wants you to do. Be safe with medicines. Take pain medicines exactly as directed. ? If the doctor gave you a prescription medicine for pain, take it as prescribed. ? If you are not taking a prescription pain medicine, ask your doctor if you can take an tkny-cff-[id number] medicine. If you think your pain medicine is making you sick to your stomach: ? Take your medicine after meals (unless your doctor has told you not to). ? Ask your doctor for a different pain medicine. If your doctor prescribed antibiotics, take them as directed. Do not stop taking them just because you feel better. You need to take the full course of antibiotics. Incision care If you have a dressing over your cuts (incisions), keep it clean and dry. You may remove it 48 to 72 hours after the surgery. If your incisions are open to the air, keep the area clean and dry. If you have strips of tape on the incisions, leave the tape on for a week or until it falls off. Exercise Move your toes and ankle as much as your bandages will allow. Bend and straighten your knee slowly several times during the day. Depending on why you had the surgery, you may have to do ankle and leg exercises. Your doctor or physical therapist will give you exercises as part of a rehabilitation program. Stop any activity that causes sharp pain. Talk to your doctor or physical therapist about what sports or other exercise you can do. Ice and elevation To reduce swelling and pain, put ice or a cold pack on your knee for 10 to 20 minutes at a time. [place] every 1 to 2 hours. Put a thin cloth between the ice and your skin. Follow-up care is a lara part of your treatment and safety. Be sure to make and go to all appointments, and call your doctor if you are having problems. It's also a good idea to know your test resultsand keep a list of the medicines you take. When should you call for help? Call 911 anytime you think you may need emergency care. For example, call if: You passed out (lost consciousness). You have severe trouble breathing. You have sudden chest pain and shortness of breath, or you cough up blood. Call your doctor now or seek immediate medical care if: Your foot or toes are numb or tingling. Your foot is cool or pale, or it changes color. You have signs of a blood clot, such as: ? Pain in your calf, back of the knee, thigh, or groin. ? Redness and swelling in your leg or groin. You are sick to your stomach or cannot keep fluids down. You have pain that does not get better after you take pain medicine. You have loose stitches, or your incision comes open. Bright red blood has soaked through the bandage over your incision. You have signs of infection, such as: ? Increased pain, swelling, warmth, or redness. ? Red streaks leading from the incisions. ? Pus draining from the incisions. ? A fever. Watch closely for any changes in your health, and be sure to contact your doctor if: You do not have a bowel movement after taking a laxative. Where can you learn more? Log into your personal health record on [email or web address]://[email or web address] Toyst.[email or web address] and enter I338 in the Education box to learn more about Knee Arthroscopy: What to Expect at Home. Current as of: April 20, 2019 Content Version: 12.3 8097-4858 [employer]. Care instructions adapted under license by your healthcare professional. If you have questions about a medical condition or this instruction, always ask your healthcare professional. [employer] disclaims any warranty or liability for your use of this information. documented in this encounter* Instructions* Mary Feng CNP - 12/03/2020 Take the Protonix daily as prescribed. Use the Zofran as needed for nausea. Advance her diet as tolerated. Start with clear liquids and then start adding bland soft foods as we discussed. Contact your primary care provider and make a follow-up appointment in the next week. Return here for new or worsening symptoms as we discussed. * Attachments The following attachments cannot be sent through Care Everywhere. * Gastritis ([place]) documented in this encounter History of Present Illness * Lucy Peña CNP - 03/23/2019 2:34 PM EDT [facility] Medicine Inpatient Follow-up 03/23/2019 Lucy Peña CNP [facility] Patient: Devyn Naranjo Date of : 1980 (39 y.o.) PCP: Quiana Warren CNP ASSESSMENT/PLAN: Devyn Naranjo 39 y.o. female presented with complains of Active Problems: Bradycardia SNOMED CT(R): BRADYCARDIA Syncope SNOMED CT(R): SYNCOPE PLAN: Bradycardia; cardiology consulted; patient seen, ok per cardiology to discharge Syncope; Dr Alcocer following waiting on EEG Continued left hand numbness; follow with nuerosurgery as an outpatient, for cervical stenosis; currently has b/l EMG ordered by PCP ETOH intoxication; resolved Continue current plan SUBJECTIVE: No acute issues overnight All other systems reviewed and negative other than noted above. OBJECTIVE: Physical Examination: BP 119/71 Pulse (!) 44 Temp 98.5 F (36.9 C) (Oral) Resp 14 Ht 5' 5 Wt 68.8 kg (151 lb 11.2 oz) SpO2 98% BMI 25.24 kg/m General Appearance: Alert, well appearing, and in no acute distress. HEENT: Head - Normocephalic, atraumatic. Eyes - BRICE bilaterally and EOMI. Aright right facial swelling Ears - normal external appearance, hearing intact. Nose - normal, no erythema. Throat - mucous membranes moist, pharynx without lesions. Neck: Supple, trachea midline. Cardiovascular: S1, S2 normal. No murmurs, rubs, clicks or gallops appreciated. No pedal edema. Respiratory: Lungs clear to auscultation, no wheezes, rales or rhonchi heard. Abdomen: Soft, non-tender, normal bowel sounds, non-distended, no masses or organomegaly appreciated. Neurological: Grossly normal motor and sensory exam. No focal deficits. Musculoskeletal: No joint tenderness, deformity or swelling. Skin: Normal coloration and turgor. No rashes. Psych: Alert, oriented x 3. Normal mood and affect. CURRENT MEDICATIONS: aspirin 81 mg Oral Daily Results/Medications Reviewed 03/23/19 2:43 PM: Results from last 7 days Lab Units 03/22/19 1004 SODIUM mmol/L 141 POTASSIUM mmol/L 3.8 CHLORIDE mmol/L 108 BUN mg/dL 11 CREATININE mg/dL 0.84 GLUCOSE mg/dL 74 Results from last 7 days Lab Units 03/22/19 1004 WBC K/mcL 7.51 HGB g/dL 13.9 HCT % 40.0 PLT K/mcL 253 Results from last 7 days Lab Units 03/22/19 1715 03/22/19 1401 03/22/19 1004 TROPONIN I ng/L <15 <15 <15 Results from last 7 days Lab Units 03/22/19 1004 INR 1.0 POCINR 0.9 Results from last 7 days Lab Units 03/22/19 1004 ALK PHOS U/L 44 BILIRUBIN TOTAL mg/dL 0.5 BILIRUBIN DIRECT mg/dL 0.1 TOTAL PROTEIN g/dL 8.0 ALTR U/L 24 AST U/L 26 CULTURES: Reviewed 2:43 PM IMAGING: Reviewed 2:43 PM * Waqar Alcocer MD - 03/23/2019 12:54 PM EDT Neurology Inpatient Consult [facility] 03/23/2019 Patient: Devyn Naranjo Date of : 1980 (39 y.o.) Referring Provider: Refer to consult order in electronic medical record PCP: Quiana Warren CNP ASSESSMENT: 39 y.o. female presented to [facility] on 03/22/2019 with syncope. PLAN: Syncope Patient with syncopal episode and landed on the right face after coming out of her car. She mentioned the left arm and leg to be numb and has some paresthesias. She has no history of syncopal episodein the past. No witnessed tonic-clonic seizure. No tongue biting or incontinence. Patient with history of palpitation and had a Holter placed 6 years ago. The right face remains swollen and sore. Consider whether she was drunk and passed out. Her alcohol level was 27.2. It is also interesting that she was not taking immediately to the hospital. Decreased pinprick on the left forearm and leg compared to the right side. Right periorbital ecchymosis and edema. Brain MRI: 1. No acute intracranial process. No acute intracranial hemorrhage, mass, extraaxial fluid collection, or acute infarction. 2. Very mild scattered foci of white matter T2 hyperintensity are nonspecific although likely due to chronic microangiopathic change. Cervical MRI: 1. No acute fracture. 2. Spinal canal stenosis at C5-6 and C6-7 due to posterior disc osteophyte complexes that indent the ventral aspect of the spinal cord asymmetrically greater along the right ventral aspect without spinal cord signal abnormality. There is very mild spinal canal stenosis at C4-5. 3. Moderate neural foraminal stenosis occurring on the right at C4-5 and bilaterally right greater than left at C6-7. Suggestion: 1. Discontinue any alcohol use. 2. Therapy and fall precautions. 3. Keep well-hydrated and avoid sudden changes in position. 4. Outpatient neurosurgery evaluation for cervical stenosis. 5. Cardiovascular evaluation. 6. Outpatient EMG of both upper extremity. 7. We will review EEG. I have personally reviewed/visualized the patient's images, as documented above. I have personally reviewed the patient's labs, as listed above. Impression, plan and suggestions was discussed with the patient. Questions and concerns were discussed and addressed. Juan parsons: Portions of this chart was created using Blip voice recognition software. Occasional wrong-word or sound-like substitutions may have occurred due to inherent limitations of the voice recognition software. Please read the chart carefully and recognize, using context, where the substitutions have occurred. Answered questions and rediscussed plan at length with Patient. DIAGNOSTIC TESTING SUMMARY: Resulted Testing: (MRI/CT/XR, EEG, EMG, CSF, Cardiac, Labs) SUBJECTIVE: Chief Complaint/Reason for Consult: Syncope. Informant(s): Patient History of Present Illness: Devyn Naranjo is a 39 y.o. female who was admitted because of pass out. Patient was in the pool and had 2 beers and [address] home around 6:30 PM on March 21, 2019 and without any warning pass out. She landed on the right face. She initially did not come to the hospital. Her right face was red and swelling. She was in and out of the consciousness according to the patient's mother. She describes persistent numbness, paresthesias and abnormal sensation in the left arm and leg. The right face remains sore. She was brought to the ER and admitted for observation. No previous history of syncope, TIA, orseizure. March 23 patient is awake and alert. She still has some soreness on the glabellar region. No fever, nausea or vomiting. Analgesic seems to have helped. She slept several hours last night. No recurrent syncopal episode. No focal weakness but has occasional paresthesias. Patient mentioned history of palpitations and had a Holter monitor placed 6 years ago. Past medicalhistory is positive for osteoarthritis. The only medication she uses meloxicam. She has seen her primary care doctor recently because of intermittent hands and some shooting pain lasting around 20 minutes in duration and spontaneously disappear. She was scheduled to have an EMG done. No alcohol, tobacco, or recreational drug use. 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 Family history is negative for syncope or seizures. Review of Systems: All systems reviewed and negative except pertinent positives and negatives documented in the History of Present Illness (HPI). History: Past Medical History: Diagnosis Date Arthritis Bradycardia Past Surgical History: Procedure Laterality Date BREAST AUGMENTATION Bilateral KNEE SURGERY X3 Social History Socioeconomic History Marital status: Spouse name: Not on file Number of children: Not on file Years of education: Not on file Highest education level: Not on file Occupational History Not on file Social Needs Financial resource strain: Not on file Food insecurity: Worry: Not on file Inability: Not on file Transportation needs: Medical: Not on file Non-medical: Not on file Tobacco Use Smoking status: Never Smoker Smokeless tobacco: Never Used Substance and Sexual Activity Alcohol use: Yes Alcohol/week: 1.0 standard drinks Types: 1 Glasses of wine per week Comment: occasional-- states drinking 4 beers last night Drug use: No Sexual activity: Not on file Lifestyle Physical activity: Days per week: Not on file Minutes per session: Not on file Stress: Not on file Relationships Social connections: Talks on phone: Not on file Gets together: Not on file Attends hoahaoism service: Not on file Active member of club or organization: Not on file Attends meetings of clubs or organizations: Not on file Relationship status: Not on file Other Topics Concern Not on file Social History Narrative Not on file Family History Problem Relation Age of Onset Clotting disorder Maternal Grandmother Additional History Comments: None Allergies: Patient has no known allergies. HOME Medications: Prior to Admission medications Medication Sig Start Date End Date Taking? Authorizing Provider meloxicam (MOBIC) 15 MG tablet Take 15 mg by mouth daily . 12/29/18 Yes Historical Provider, PARoxetine (PAXIL) 10 MG tablet Take 10 mg by mouth daily. 03/22/19 Historical Provider, HOSPITAL Infusions: HOSPITAL Scheduled Medications: aspirin 81 mg Oral Daily HOSPITAL PRN Medications: acetaminophen, ondansetron, perflutren lipid microspheres OBJECTIVE: Physical Examination: BP 119/71 Pulse (!) 44 Temp 98.5 F (36.9 C) (Oral) Resp 14 Ht 5' 5 Wt 68.8 kg (151 lb 11.2 oz) SpO2 98% BMI 25.24 kg/m Patient is awake and alert. Normal development and fairly groomed. Not in distress or pain. Vital signs were reviewed. Neck is supple. No carotid bruits. No meningeal sign. Heart rate and rhythm is regular. No cardiac murmur. Breath sounds are clear bilateral lung alvarze.Abdomen is soft and nontender. Positive bowel sounds. No pedal edema. Pulses are 2+ symmetrically. No skin rash. Right periorbital ecchymosis and edema. Patient is oriented. Language is intact. Speech is fluent and is spontaneous. General fund of knowledge is intact. Pupils are 4 mm equally reactive to light. No ptosis, nystagmus, or visual field cuts. Extraocular muscles are intact. Fundus was not adequately visualized. Face is symmetrical and facial sensation is intact. Hearing is grossly intact. Palate moves symmetrical upward. Positive shoulder shrug. Tongue is midline. Gross strength is 5/5. Normal muscle tone and bulk. No muscle fasciculations. Sensory is intact to pinprick, vibration, light touch, and proprioception. No tremors, ataxia, dysmetria, or other abnormal involuntary movement. Deep tendon reflexes are 2+ symmetrically. No ankle clonus. Toes are downgoing on plantar stimulation. Finger to nose tests was normal. Toe to finger test was normal. Heel knee to alonso test was normal. Negative Tinel sign. documented in this encounter* Joselyn De La Cruz MA - 04/12/2019 4:05 PM EDT Review of Systems Musculoskeletal: Positive for arthralgias, back pain, gait problem, myalgias, neck pain and neck stiffness. Neurological: Positive for syncope, light-headedness and headaches. Psychiatric/Behavioral: Positive for sleep disturbance. * Lalitha Iraheta MD - 04/12/2019 3:59 PM EDT Subjective Devyn Naranjo is a 39 y.o. female. HPI: Patient is having numbness and a lot of pain in both arms. She has had this problem for 2 months. 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 She mentionsthat she has numbness into the fingertips of both hands. She notes neck pain, and bilateral arm pain, worse on the left, she notes the symptoms are worse at night. She has not done any neck physical therapy. PAST MEDICAL HISTORY: Past Medical History: Diagnosis Date Arthritis Bradycardia SURGICAL HISTORY: Past Surgical History: Procedure Laterality Date BREAST AUGMENTATION Bilateral KNEE SURGERY X3 SOCIAL HISTORY : Social History Socioeconomic History Marital status: Spouse name: Not on file Number of children: Not on file Years of education: Not on file Highest education level: Not on file Occupational History Not on file Social Needs Financial resource strain: Not on file Food insecurity: Worry: Not on file Inability: Not on file Transportation needs: Medical: Not on file Non-medical: Not on file Tobacco Use Smoking status: Never Smoker Smokeless tobacco: Never Used Substance and Sexual Activity Alcohol use: Yes Alcohol/week: 1.0 standard drinks Types: 1 Glasses of wine per week Comment: occasional-- states drinking 4 beers last night Drug use: No Sexual activity: Not on file Lifestyle Physical activity: Days per week: Not on file Minutes per session: Not on file Stress: Not on file Relationships Social connections: Talks on phone: Not on file Gets together: Not on file Attends hoahaoism service: Not on file Active member of club or organization: Not on file Attends meetings of clubs or organizations: Not on file Relationship status: Not on file Other Topics Concern Not on file Social History Narrative Not on file MEDICATIONS: Current Outpatient Medications Medication Sig Dispense Refill meloxicam (MOBIC) 15 MG tablet Take 15 mg by mouth daily . 5 No current facility-administered medications for this visit. ALLERGIES: No Known Allergies REVIEW of SYSTEMS: Musculoskeletal: Positive for arthralgias, back pain, gait problem, myalgias, neck pain and neck stiffness. Neurological: Positive for syncope, light-headedness and headaches. Psychiatric/Behavioral: Positive for sleep disturbance. Objective NEUROLOGICAL EXAMINATION: no neck pain to palpation, normal power in the upper and lower extremities, sensory exam normal, noabnormal reflexes, balance is good STUDY REVIEW: DATA REVIEW: c-spine MRI showed C5-6, C6-7 disc protrusions with cervical spinal stenosis and foraminal narrowing Assessment/Plan: MEDICAL DECISION-MAKING AND SUMMARY: Will plan for PT for the neck, and emg of the upper extremities, will follow up also Diagnoses and all orders for this visit: Paresthesia - Ambulatory referral to Neurology; Future - Ambulatory ref to Therapy (PT/OT/ST); Future documented in this encounter* Kiran Barroso, PT - 05/23/2019 6:15 PM EDT [facility] OUTPATIENT REH[facility]ILITATION DAILY TREATMENT NOTE Today's Date 05/24/2019 Patient Name: Devyn Naranjo Date of : 1980 Current Visit #: 2 Authorized Visits: 50 Case Name: paresthesia History: Pre-Treatment Pain Scale: 4 Symptoms: No change Functional Diagnosis: SNOMED CT(R) 1. Paresthesia PARESTHESIA Clinical Information: Subjective: Pt reports that she really hasn't noticed much since her first visit. Feels like it maybe improving a little bit. Reports that she did have an occasion of sharp brief pain volar surface of her wrist (lasted about 30 seconds). Objective - More ROM gained L side bend after manual soft tissue interventions compared to unilateral PA mobilizations. Treatments: Physical Therapy Exercise Log - 05/23/19 1901 OTHER Notes Supervising PT Kiran Easley Therapeutic Exercise ([id number]) Intervention Manual cervical traction 20 x 8, manual UT stretch 30 x 3 Parameters Manual cervical unilateral PA mobilizations 5' Intervention Self nerve glides ulnar x 20 bilaterally Parameters UT stretch (arm behind back): 20 x 3 B Parameters supine cervical retraction 3 hold x 20 Intervention supine retract + head lift 5 x 15 Parameters Manual STM UT / levator: 5' PT Treatment Times Therex Total Time 20 Manual Therapy Total Time 18 Direct Treatment Time 38 Goals: Physical Therapy Ortho Goals: 1. Pt will demonstrate centralization of symptoms with decreased bilateral arm pain by at least 75%. 4 weeks 2. Pt will demonstrate improved cervical rotation ROM to WNL allowing for ease of environmental scanning. 4 weeks. IE date: 05/13/2019 Progress report due: Recert due: visit # 8 Patient Education: Quality of movement with patient demonstrated understanding and verbalized understanding. Post-Treatment Pain Scale: 4 Assessment: Patient had an expected response to treatment. Skilled Intervention demonstrated by modifications of treatment per exercise log including plane progressions, increased mobility and assessment of patient's response and safety interventions per exercise log. Progress towards goals as expected. Plan for Next Visit: [place] HEP prescription(self ulnar nerve glides, supine retract, supine retract + head lift, UT stretch) Kiran Barroso PT STATE LICENSE, [id number] documented in this encounter* Kiran Barroso, PT - 05/30/2019 6:15 PM EDT [facility] OUTPATIENT REHABILITATION DAILY TREATMENT NOTE Today's Date 05/30/2019 Patient Name: Devyn Naranjo Date of : 1980 Current Visit #: 4 Authorized Visits: 50 Case Name: paresthesia History: Pre-Treatment Pain Scale: 0 Symptoms: gradually improved Functional Diagnosis: SNOMED CT(R) 1. Paresthesia PARESTHESIA Clinical Information: Subjective: Pt reports that she is happy with her progress. The neck stretches with the strap are helping a lot. Isn't having the pain into her arms anymore. Objective - peripheralization of sxs with PROM R SB stretching and then centralization with PROM L SB stretching Significant improvement noted with decreased UT tone Treatments: Physical Therapy Exercise Log - 05/30/191815 OTHER Notes Supervising PT Kiran Easley (Pended) Goals: Physical Therapy Ortho Goals: 1. Pt will demonstrate centralization of symptoms with decreased bilateral arm pain by at least 75%. 4 weeks 2. Pt will demonstrate improved cervical rotation ROM to WNL allowing for ease of environmental scanning. 4 weeks. IE date: 05/13/2019 Progress report due: Recert due: visit # 8 Patient Education: Quality of movement, HEP Adherence and Diagnosis and recovery specific educationwith patient demonstrated understanding and verbalized understanding. Post-Treatment Pain Scale: 0 Assessment: Patient had an expected response to treatment. Pt symptoms responding well to cervical based tx protocol. Pt demonstrates peripheralization with PROM R SB and centralization with L SB - symptoms consistent with cervical origin. Skilled Intervention demonstrated by modifications of treatment per exercise log including increased mobility and assessment of patient's response and safety interventions per exercise log. Progress towards goals as expected. Plan for Next Visit: continue Kiran Barroso PT STATE LICENSE, [id number] documented in this encounter* Maylin Lu PTA - 06/01/2019 6:15 PM EDT [facility] OUTPATIENT REHABILITATION DAILY TREATMENT NOTE Today's Date 06/01/2019 Patient Name: Devyn Naranjo Date of : 1980 Current Visit #: 5 Authorized Visits: 50 Case Name: paresthesia History: Pre-Treatment Pain Scale: 0 Symptoms: gradually improved Functional Diagnosis: SNOMED CT(R) 1. Paresthesia PARESTHESIA Clinical Information: Subjective: Pt states overall feels great denies any pain at the present time and compliant with HEP but notes burning with shoulder extension which resolves quickly with rest. Objective: Added humeral head depression with slow and control scapular involvement with avoidance of symptoms. Cont with manual treatment from previous sessions with good results. Treatments: Physical Therapy Exercise Log - 06/01/191811 OTHER Notes Supervising PT Kiran Easley Goals: Physical Therapy Ortho Goals: 1. Pt will demonstrate centralization of symptoms with decreased bilateral arm pain by at least 75%. 4 weeks 2. Pt will demonstrate improved cervical rotation ROM to WNL allowing for ease of environmental scanning. 4 weeks. IE date: 05/13/2019 Progress report due: Recert due: visit # 8 Patient Education: Quality of movement with patient demonstrated understanding and verbalized understanding. Post-Treatment Pain Scale: 0 Assessment: Patient had an expected response to treatment. Remains pain free with treatment Skilled Intervention demonstrated by modifications of treatment per exercise log including increased mobility and safety interventions per exercise log. Progress towards goals as expected. Plan for Next Visit: Cont with program; monitor response to HHD exercises Maylin Lu PTA STATE LICENSE, [id number] documented in this encounter* Kiran Barroso, PT - 06/06/2019 6:15 PM EDT [facility] OUTPATIENT REHABILITATION DAILY TREATMENT NOTE Today's Date 06/06/2019 Patient Name: Devyn Naranjo Date of : 1980 Current Visit #: 6 Authorized Visits: 50 Case Name: paresthesia History: Pre-Treatment Pain Scale: 0 Symptoms: gradually improved Functional Diagnosis: SNOMED CT(R) 1. Paresthesia PARESTHESIA Clinical Information: Subjective: Pt reports that they symptoms in her arms are gone. Reports that she isn't noticing that pain at all. Has some soreness in the L shoulder at night but nothing bad. Pt reports that she feels very tired (slept 11 hrs last night). Pt reports that she recently had blood work done and everything checked out fine. Objective - included cervical mobilization with movement with L sidebend L unilateral upglide Treatments: Physical Therapy Exercise Log - 06/06/191817 OTHER Notes Supervising PT Kiran Kaushal Goals: Physical Therapy Ortho Goals: 1. Pt will demonstrate centralization of symptoms with decreased bilateral arm pain by at least 75%. 4 weeks 2. Pt will demonstrate improved cervical rotation ROM to WNL allowing for ease of environmental scanning. 4 weeks. IE date: 05/13/2019 Progress report due: Recert due: visit # 8 Patient Education: Quality of movement, HEP Adherence and Diagnosis and recovery specific educationwith patient demonstrated understanding and verbalized understanding. Post-Treatment Pain Scale: 0 Assessment: Patient had an expected response to treatment. Pt demonstrate improved quality of movement with L sidebend after manual interventions. More evenly distributed movement from the cervical segments. Skilled Intervention demonstrated by modifications of treatment per exercise log including increased mobility and assessment of patient's response and safety interventions per exercise log. Progress towards goals as expected. Plan for Next Visit: continue x 1 week - if symptoms in the UEs remain resolved will DC to HEP Kiran Barroso PT STATE LICENSE, [id number] documented in this encounter* Maylin Lu, MICHELLE - 06/08/2019 6:15 PM EDT [facility] OUTPATIENT REHABILITATION DAILY TREATMENT NOTE Today's Date 06/08/2019 Patient Name: Devyn Naranjo Date of : 1980 Current Visit #: 7 Authorized Visits: 50 Case Name: paresthesia History: Pre-Treatment Pain Scale: 0 Symptoms: gradually improved Functional Diagnosis: SNOMED CT(R) 1. Paresthesia PARESTHESIA Clinical Information: Subjective: Pt states she is very pleased with her results and denies any issues since her previoussession. Compliance with her HEP as she has been instructed. Objective: Cont with current program for avoidance of stiffness in cervical region and radicular symptoms. HEP verbal review with compliance. Treatments: Physical Therapy Exercise Log - 06/08/191815 OTHER Notes Supervising PT Kiran Easley Vitals 616- Therapeutic Exercise ([id number]) Intervention Manual cervical traction 30 x 8, manual UT stretch 30 x 3 Parameters Manual cervical unilateral PA mobilizations 5' Intervention Cervical SNAGS: instruct 5 x 10 reps bilaterally Parameters Cervical mobilization with movement L sidebend with L upglide C3-6 2 x 10 total reps. Goals: Physical Therapy Ortho Goals: 1. Pt will demonstrate centralization of symptoms with decreased bilateral arm pain by at least 75%. 4 weeks 2. Pt will demonstrate improved cervical rotation ROM to WNL allowing for ease of environmental scanning. 4 weeks. IE date: 05/13/2019 Progress report due: Recert due: visit # 8 Patient Education: Community Resources and Community [employer] with patient verbalized understanding. Post-Treatment Pain Scale: 0 Assessment: Patient had an expected response to treatment. Tolerates manual treatment without any issues. Noticeable decrease in cervical stiffness within the past week. Skilled Intervention demonstrated by modifications of treatment per exercise log including decreased cueing and safety interventions per exercise log. Progress towards goals as expected. Plan for Next Visit: Will return x1 session next week with primary PT for possible DC. Maylin Lu PTA STATE LICENSE, [id number] documented in this encounter* Tammy Silva CNP - 08/08/2019 1:39 PM EDT Associated Order(s): LG Jt Injection/Arthrocentesis: L knee Post-Procedure Diagnose(s): Primary osteoarthritis of left knee LG Jt Injection/Arthrocentesis: L knee Performed by: Tammy Silva CNP Authorized by: Tammy Silva CNP CPT 43665 - Large Joint Arthrocentesis: Consent given by: Patient Time out: Immediately prior to the procedure a time out was called Supporting Documentation: Indications: Pain and diagnostic evaluation Procedure Details: Location: Knee Site: L knee Needle size: 22 G Approach: Anterolateral Medications: 40 mg triamcinolone acetonide 40 mg/mL Anesthetic used: Lidocaine 1% Anesthetic amount (mL): 2 Patient tolerance: Patient tolerated the procedure well with no immediate complications * Tammy Silva CNP - 08/08/2019 1:38 PM EDT Associated Order(s): LG Jt Injection/Arthrocentesis: R knee Post-Procedure Diagnose(s): Primary osteoarthritis of right knee LG Jt Injection/Arthrocentesis: R knee Performed by: Tammy Silva CNP Authorized by: Tammy Silva CNP CPT 25536 - Large Joint Arthrocentesis: Consent given by: Patient Time out: Immediately prior to the procedure a time out was called Physician or proceduralist has discussed critical or nonroutine steps, procedure duration and anticipated blood loss: Yes Supporting Documentation: Indications: Pain, joint swelling and diagnostic evaluation Procedure Details: Location: Knee Site: R knee Needle size: 22 G Approach: Anterolateral Medications: 40 mg triamcinolone acetonide 40 mg/mL Anesthetic used: Lidocaine 1% Anesthetic amount (mL): 2 Patient tolerance: Patient tolerated the procedure well with no immediate complications * Tammy Silva CNP - 08/08/2019 1:38 PM EDT Devyn Naranjo 1980 CC: 39 y.o. is a she with bilateral knee pain. Chief Complaint Patient presents with Left Knee - Pain Right Knee - Pain . HPI: Knee Pain: Patient complains of bilateral knee pain. The pain began 20 years ago She describesthe symptoms as aching, sharp, shooting, stabbing and throbbing. The symptoms are worse with activity, stair climbing, kneeling, deep knee bending, getting up from a chair, weight bearing, running, biking. The knee has not given out or felt unstable. Treatment to date has been ice, NSAID's, cortisone injection, without significant relief. She also takes Meloxicam for the pain and inflammation which helps a little. She has had both ACLs repaired years ago. The knees, especially the right one is very painful. 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 The last cortisone injections she received was about 2 years ago and she would like to try the injections again. PMH: No Known Allergies Current Outpatient Medications: meloxicam (MOBIC) 15 MG tablet, Take 15 mg by mouth daily ., Disp: , Rfl: 5 The patient's past medical history, surgical history, social history, family history, medications and allergies were reviewed with the patient today and are available in the chart for further review. ROS: Review of Systems Constitutional: Negative for activity change and fatigue. HENT: Negative for congestion, hearing loss and trouble swallowing. Eyes: Negative for visual disturbance. Respiratory: Negative for chest tightness and shortness of breath. Cardiovascular: Negative for chest pain and palpitations. Gastrointestinal: Negative for abdominal pain, diarrhea, nausea and vomiting. Endocrine: Negative for polydipsia, polyphagia and polyuria. Genitourinary: Negative for decreased urine volume, difficulty urinating and hematuria. Musculoskeletal: Positive for arthralgias. Negative for joint swelling and myalgias. Skin: Negative for color change, rash and wound. Allergic/Immunologic: Negative for immunocompromised state. Neurological: Negative for dizziness, weakness, light-headedness and numbness. Hematological: Does not bruise/bleed easily. Psychiatric/Behavioral: Negative for confusion and sleep disturbance. The patient is not nervous/anxious. PE: Physical Exam Constitutional: She is oriented to person, place, and time. She appears well- developed and well-nourished. HENT: Head: Normocephalic. Eyes: Pupils are equal, round, and reactive to light. Neck: Normal range of motion. Neck supple. Cardiovascular: Normal rate and regular rhythm. Pulmonary/Chest: Effort normal and breath sounds normal. Abdominal: Soft. Bowel sounds are normal. Musculoskeletal: General: Tenderness and edema present. Right knee: She exhibits decreased range of motion, swelling and bony tenderness. Tenderness found.Medial joint line and lateral joint line tenderness noted. Left knee: Tenderness found. Medial joint line and lateral joint line tenderness noted. Neurological: She is alert and oriented to person, place, and time. Skin: Skin is warm and dry. Imaging: B/L Knees Moderate tricompartmental osteoarthritis of the right knee with medial compartment predominance. Mild medial compartment degenerative changes in the left knee. Postsurgical findings of bilateral ACL repair. Assessment: The patient cannot bend and straighten the knee fully. Anterior drawer negative, Posterior drawer negative, Tiffanie negative, Valgus instability noted andExam limited due to pain Valgus knee Positive Lateral/Positive Medial Moose Plan: After examination and reviewing of x-ray images, I am going to go ahead and administer cortisone injections to bilateral knees in hopes of providing Devyn with some pain relief. I am going to review her chart and imaging with Dr. Fuentes to see what he recommendation is as far as surgical interventions. We discussed B/L knee scopes in hopes of cleaning out the severe bone spurring especially in the right knee. She would prefer to have scopes done to see if it would buy her some time before having to get knee replacements. I explained that I would speak to Dr. Fuentes and then get back with her with his recommendation. She verbalizes understanding and is in agreement with this treatment plan. Diagnosis: Problem List Items Addressed This Visit None Follow Up: No follow-ups on file. Tammy Silva CNP documented in this encounter* Tammy Silva CNP - 08/25/2019 12:38 PM EDT . documented in this encounter* Hilton Camarillo MD - 10/25/2019 1:17 PM EST Dictation on: 10/25/2019 1:19 PM by: HILTON CAMARILLO [[id number]] documented in this encounter* Mary Resendiz APRN-CNP - 11/15/2019 4:00 PM EST Patient: Devyn Corona Patient : 1980 Patient Age: 39 y.o. Today's Date: 11/16/2019 Provider: KEMAR Schulz History of Present Illness: Patient here today for evaluation of Chief Complaint Patient presents with Sore Throat Patient is here for ST and body aches since thursday. 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 Reports that she has noticed a runny nose and ST. No rashes. No documented fevers. NO N/V/D. History: No Known Allergies Past Medical History: Diagnosis Date Anxiety Depression Migraine Past Surgical History: Procedure Laterality Date KNEE SURGERY Right x2 KNEE SURGERY Left Social History Tobacco Use Smoking status: Never Smoker Smokeless tobacco: Never Used Substance Use Topics Alcohol use: Yes Drug use: Never Family History Family history unknown: Yes Review of Systems: Review of Systems Constitutional: Negative for chills, diaphoresis, fatigue and fever. HENT: Positive for congestion, postnasal drip, rhinorrhea and sore throat. Negative for tinnitus, trouble swallowing and voice change. Respiratory: Positive for choking. Cardiovascular: Negative for chest pain, palpitations and leg swelling. Musculoskeletal: Negative for arthralgias, back pain, gait problem, joint swelling, myalgias and neck pain. Skin: Negative for color change, pallor, rash and wound. Hematological: Negative for adenopathy. Does not bruise/bleed easily. All other systems reviewed and are negative. Physical Exam: Vitals: 11/15/19 1600 BP: 133/56 Pulse: 53 Resp: 16 Temp: 98.6 degrees F (37 degrees C) SpO2: 99% Weight: 71.7 kg (158 lb) Height: 1.676 m (5' 6) Physical Exam Vitals signs reviewed. Constitutional: Appearance: She is normal weight. HENT: Head: Normocephalic. Right Ear: Tympanic membrane and ear canal normal. Left Ear: Tympanic membrane and ear canal normal. Nose: No congestion or rhinorrhea. Mouth/Throat: Mouth: Mucous membranes are moist. Eyes: Conjunctiva/sclera: Conjunctivae normal. Neck: Musculoskeletal: Normal range of motion. Cardiovascular: Rate and Rhythm: Normal rate and regular rhythm. Pulmonary: Effort: Pulmonary effort is normal. Breath sounds: Normal breath sounds. Abdominal: General: Bowel sounds are normal. Palpations: Abdomen is soft. Skin: General: Skin is warm and dry. Capillary Refill: Capillary refill takes less than 2 seconds. Neurological: General: No focal deficit present. Mental Status: She is alert. Current Medications: Current Outpatient Medications: ferrous sulfate 325 (65 Fe) MG Tab tablet, Take 325 mg by mouth., Disp: , Rfl: Loratadine 5 MG Chew Tab, Chew 5 mg Every morning as needed., Disp: , Rfl: meloxicam 15 MG Tab tablet, Take 15 mg by mouth Every morning as needed., Disp: , Rfl: Multiple Vitamin (MULTI-VITAMIN DAILY PO), Take by mouth., Disp: , Rfl: Multiple Vitamin (ONE-DAILY MULTIVITAMINS) Tab, Take 1 tablet by mouth Daily (with dinner)., Disp: , Rfl: Ezel-3 1000 MG Cap, Take 1 capsule by mouth Daily (with dinner)., Disp: , Rfl: Health Maintenance List: Health Maintenance Topic Date Due HIV SCREENING DISCUSSION 1995 TETANUS 01/25/2000 TDAP (ADULT) 2001 PAP SMEAR DISCUSSION 2003 INFLUENZA VACCINE (1) 06/26/2019 Assessment & Plan: ICD-10-CM 1. Acute URI J06.9 2. Sore throat J02.9 POCT INFLUENZA, A B POCT RAPID STREP A Flu and strep were (-). Treat as viral. Mucinex OTC and tylenol motrin as needed. She agreed to POCand denied any questions. No follow-ups on file. Patient was advised to call with any questions or concerns. If symptoms worsen patient was advised to follow up in our office or the Emergency Dept. Benefits, risks, contraindications, and complications of recommended treatments were explained the patient understands and agrees to proceed with plan. * Juan Luis Sharma LPN - 11/15/2019 4:00 PM EST Pt is here today d/t sore throat and body aches since Thursday. documented in this encounter* ChioKiran, PT - 05/25/2019 5:30 PM EDT [facility] OUTPATIENT REHABILITATION DAILY TREATMENT NOTE Today's Date 05/26/2019 Patient Name: Devyn Naranjo Date of : 1980 Current Visit #: 3 Authorized Visits: 50 Case Name: paresthesia History: Pre-Treatment Pain Scale: 4 Symptoms: No change Functional Diagnosis: SNOMED CT(R) 1. Paresthesia PARESTHESIA Clinical Information: Subjective: Pt reports that she felt great after last visit. Reports that night felt like she had great neck mobility and decreased pain. The next day symptoms returned to normal levels. Reports thatshe had severe bilateral arm pain after working out (not normal muscle soreness from working out) Objective - pt reports ease of symptoms initially with cervical rotation SNAGS, increased cervical soreness with later reps (no radicular symptoms) Treatments: Physical Therapy Exercise Log - 05/25/19 3285 OTHER Notes Supervising PT Kiran 8 Therapeutic Exercise ([id number]) Intervention Manual cervical traction 20 x 8, manual UT stretch 30 x 3 Parameters Manual cervical unilateral PA mobilizations 5' Parameters supine cervical retraction 3 hold x 20 Intervention supine retract + head lift 5 x 15 Parameters Manual STM UT / levator: 5' Intervention Cervical SNAGS: instruct 5 x 5 reps bilaterally Parameters Instructed shoulder extension - complete NV Goals: Physical Therapy Ortho Goals: 1. Pt will demonstrate centralization of symptoms with decreased bilateral arm pain by at least 75%. 4 weeks 2. Pt will demonstrate improved cervical rotation ROM to WNL allowing for ease of environmental scanning. 4 weeks. IE date: 05/13/2019 Progress report due: Recert due: visit # 8 Patient Education: Quality of movement, Verbal HEP, HEP Modification and HEP Adherence with patientdemonstrated understanding and verbalized understanding. Post-Treatment Pain Scale: 4 Assessment: Patient had an expected response to treatment. Skilled Intervention demonstrated by modifications of treatment per exercise log including increased mobility and assessment of patient's response and safety interventions per exercise log. Progress towards goals as expected. Plan for Next Visit: continue, NV thoracic outlet synrome tests Kiran Barroso PT STATE LICENSE, [id number] documented in this encounter* Osmar Garcia MD - 12/10/2020 2:30 PM EST HPI: Patient presents for Chief Complaint Patient presents with ED Follow-up Bloated Pt here for Er follow up after being treated for what she states they told her was an inflamed intestines. She is here today complaining of bloating and dry heaves, acid reflux. She states she swallows and it feels like food is stuck in her throat. She belches a lot. This has been going on for about a month Review of Systems Constitutional: Negative. HENT: Negative. Respiratory: Negative. Cardiovascular: Negative. Gastrointestinal: Positive for abdominal distention and constipation. Physical Exam Constitutional: Appearance: Normal appearance. Cardiovascular: Rate and Rhythm: Normal rate and regular rhythm. Pulses: Normal pulses. Pulmonary: Effort: Pulmonary effort is normal. Breath sounds: Normal breath sounds. Abdominal: Palpations: Abdomen is soft. Musculoskeletal: Cervical back: Normal range of motion and neck supple. Neurological: Mental Status: She is alert. Vitals: 12/10/20 1432 BP: 152/87 Pulse: 50 Temp: 98 F (36.7 C) No Known Allergies Family History Family history unknown: Yes Past Surgical History: Procedure Laterality Date KNEE SURGERY Right x2 KNEE SURGERY Left Social History Socioeconomic History Marital status: Spouse name: Not on file Number of children: Not on file Years of education: Not on file Highest education level: Not on file Occupational History Not on file Tobacco Use Smoking status: Never Smoker Smokeless tobacco: Never Used Substance and Sexual Activity Alcohol use: Yes Drug use: Never Sexual activity: Not on file Other Topics Concern Service Not Asked Blood Transfusions Not Asked Caffeine Concern Not Asked Occupational Exposure Not Asked Hobby Hazards Not Asked Sleep Concern Not Asked Stress Concern Not Asked Weight Concern Not Asked Special Diet Not Asked Back Care Not Asked Exercise Not Asked Bike Helmet Not Asked Seat Belt Not Asked Domestic Violence No Social History Narrative Not on file Social Determinants of Health Financial Resource Strain: Difficulty of Paying Living Expenses: Not on file Food Insecurity: Worried About Running Out of Food in the Last Year: Not on file Ran Out of Food in the Last Year: Not on file Transportation Needs: Lack of Transportation (Medical): Not on file Lack of Transportation (Non-Medical): Not on file Physical Activity: Days of Exercise per Week: Not on file Minutes of Exercise per Session: Not on file Stress: Feeling of Stress : Not on file Social Connections: Frequency of Communication with Friends and Family: Not on file Frequency of Social Gatherings with Friends and Family: Not on file Attends Synagogue Services: Not on file Active Member of Clubs or Organizations: Not on file Attends Club or Organization Meetings: Not on file Marital Status: Not on file Intimate Partner Violence: Fear of Current or Ex-Partner: Not on file Emotionally Abused: Not on file Physically Abused: Not on file Sexually Abused: Not on file Past Medical History: Diagnosis Date Anxiety Depression Migraine Current Outpatient Medications: ferrous sulfate 325 (65 Fe) MG Tab tablet, Take 325 mg by mouth., Disp: , Rfl: Loratadine 5 MG Chew Tab, Chew 5 mg Every morning as needed., Disp: , Rfl: Multiple Vitamin (ONE-DAILY MULTIVITAMINS) Tab, Take 1 tablet by mouth Daily (with dinner)., Disp: , Rfl: Ezel-3 Fatty Acids (Fish Oil) 1000 MG capsule, Take 1 capsule by mouth daily., Disp: , Rfl: pantoprazole [address] tablet , Take 40 mg by mouth daily., Disp: , Rfl: Labs: All recent labs/test reviewed. Assessment & Plan ICD-10-CM 1. Gastroesophageal reflux disease with esophagitis without hemorrhage K21.00 2. LGI bleed K92.2 CASE REQUEST - ENDOSCOPY Orders Placed This Encounter CASE REQUEST - ENDOSCOPY: COLONOSCOPY DIAGNOSTIC pantoprazole [address] tablet Ezel-3 Fatty Acids (Fish Oil) 1000 MG capsule Medications are to be taken as directed. Osmar Garcia MD 12/13/2020 * Marjorie Chase MA - 12/10/2020 2:30 PM EST HPI: Patient presents for Chief Complaint Patient presents with ED Follow-up Bloated Pt here for Er follow up after being treated for what she states they told her was an inflamed intestines. She is here today complaining of bloating and dry heaves, acid reflux. She states she swallows and it feels like food is stuck in her throat. She belches a lot. This has been going on for about a month documented in this encounter* Waqar Alcocer MD - 05/04/2019 1:39 PM EDT Procedures ELECTROMYOGRAPHY (Nerve conduction test/EMG) Brief History: Patient with months of bilateral upper extremity pain. She also has some neck pain but no diabetes. Plan: This study is design to evaluate for entrapment neuropathy, median or ulnar neuropathy, radiculopathy, or brachial plexopathy. Procedure indication, side effects, complications, risk and alternatives were explain. Patient agreed to proceed with verbal consent obtain. Patient was instructed toclean the puncture site with soap and water and put some ice pack for bruising. Please request raw data if needed. EMG Summary: The bilateral median and ulnar motor and sensory nerve conduction studies were normal.The bilateral radial sensory nerve conduction studies were also normal. Needle EMG of the tested muscle showed no abnormal spontaneous activity. Normal motor unit action potentials and recruitment patterns were seen. Impression: This is a normal EMG. There is NO clear electrodiagnostic evidence of a bilateral cervical radiculopathy, brachial plexopathy, entrapment neuropathy, median or ulnar neuropathy at this time. documented in this encounter* Matty Donaldson MD - 01/17/2021 3:40 PM EDT History of Present Illness Devyn Corona is a 40-year-old female 2 para 2001 with a history of 2 previous spontaneousvaginal deliveries. Patient now presents for second opinion and requests assumption of care. A she'll with a history of menorrhagia and dysmenorrhea. Previous transvaginal ultrasound per women's carewas consistent with an 8 week irregular shaped uterus. 3 fibroids were noted. 1.7 x 2.1 x 2.0, a posterior fibroid measuring 3.8 x 4.0 x 3.5, and a pedunculated anterior fibroid measuring 3.2 x 4.0 x3.4 cm. Patient was also noted to have an endometrial thickness. A Pipelle biopsy performed on on 12/25/20 was consistent with benign endometrium. Patient was counseled regarding the needfor hysterectomy. Patient now sought a second opinion and assumption for various concerns. The following portions of the patients of the chart have reviewed and updated as required. Patient Active Problem List Diagnosis Generalized abdominal pain Preop testing Other constipation Bright red rectal bleeding Heartburn Current Outpatient Medications Medication Sig Dispense Refill Cyanocobalamin (VITAMIN B 12 PO) Take by mouth. ferrous sulfate 325 (65 Fe) MG Tab tablet Take 325 mg by mouth. Loratadine 5 MG Chew Tab Chew 5 mg Every morning as needed. Multiple Vitamin (ONE-DAILY MULTIVITAMINS) Tab Take 1 tablet by mouth Daily (with dinner). Multiple Vitamins-Minerals (HAIR SKIN & NAILS ADVANCED PO) Take by mouth. Ezel-3 Fatty Acids (Fish Oil) 1000 MG capsule Take 1 capsule by mouth daily. pantoprazole [address] tablet DR Take 1 tablet by mouth every morning before breakfast. 30 tablet 11 Probiotic Product (PROBIOTIC-10 PO) Take by mouth. hydroCODone-acetaminophen 5-325 MG tablet Take 1-2 tablets by mouth every 4 hours as needed for up to 3 days. 18 tablet 0 lactulose 10 GM/15ML Solution oral solution Take 60 mL by mouth 2 times daily. (Patient not taking:Reported on 01/17/2021) 500 mL 11 linaCLOtide (Linzess) 145 MCG capsule Take 1 capsule by mouth daily. (Patient not taking: Reported on 01/17/2021) 30 capsule 11 lubiprostone (Amitiza) 24 MCG capsule Take 1 capsule by mouth 2 times daily. (Patient not taking: Reported on 01/17/2021) 60 capsule 11 ondansetron 4 MG tablet Take 1 tablet by mouth every 6 hours as needed for Nausea. (Patient not taking: Reported on 01/17/2021) 30 tablet 5 No current facility-administered medications for this visit. Past Medical History: Diagnosis Date Anemia Anxiety Depression Migraine No Known Allergies Past Surgical History: Procedure Laterality Date EGD DIAGNOSTIC N/A 01/01/2021 Laterality: N/A; Surgeon: Wilder Hale MD; Location: [facility] COLONOSCOPY DIAGNOSTIC N/A 01/01/2021 Laterality: N/A; Surgeon: Wilder Hale MD; Location: [facility] AUGMENTATION BREAST 2010 KNEE SURGERY Right x2 KNEE SURGERY Left STOMACH SURGERY tummy tuck TUBAL LIGATION OB History 2 Para 2 Term 2 AB Living 2 SAB TAB Ectopic Molar Multiple Live Births 2 Social History Socioeconomic History Marital status: Spouse name: Not on file Number of children: Not on file Years of education: Not on file Highest education level: Not on file Occupational History Not on file Tobacco Use Smoking status: Never Smoker Smokeless tobacco: Never Used Substance and Sexual Activity Alcohol use: Yes Comment: consumes socially Drug use: Never Sexual activity: Yes Partners: Male control/protection: Tubal Ligation Other Topics Concern Service Not Asked Blood Transfusions Not Asked Caffeine Concern Not Asked Occupational Exposure Not Asked Hobby Hazards Not Asked Sleep Concern Not Asked Stress Concern Not Asked Weight Concern Not Asked Special Diet Not Asked Back Care Not Asked Exercise Not Asked Bike Helmet Not Asked Seat Belt Not Asked Domestic Violence No Social History Narrative Not on file Social Determinants of Health Financial Resource Strain: Low Risk Difficulty of Paying Living Expenses: Not very hard Food Insecurity: No Food Insecurity Worried About Running Out of Food in the Last Year: Never true Ran Out of Food in the Last Year: Never true Transportation Needs: No Transportation Needs Lack of Transportation (Medical): No Lack of Transportation (Non-Medical): No Physical Activity: Days of Exercise per Week: Not on file Minutes of Exercise per Session: Not on file Stress: Feeling of Stress : Not on file Social Connections: Unknown Frequency of Communication with Friends and Family: Once a week Frequency of Social Gatherings with Friends and Family: Once a week Attends Synagogue Services: Not on file Active Member of Clubs or Organizations: Not on file Attends Club or Organization Meetings: Not on file Marital Status: Intimate Partner Violence: Not At Risk Fear of Current or Ex-Partner: No Emotionally Abused: No Physically Abused: No Sexually Abused: No Family History Problem Relation Age of Onset Lung Cancer Father Other - Specify Son 5 P minus syndrome Review of Systems Constitutional: Negative. Negative for activity change, appetite change, chills, diaphoresis, fatigue and fever. HENT: Negative. Negative for congestion and dental problem. Eyes: Negative for discharge and itching. Respiratory: Negative for apnea, cough, chest tightness, shortness of breath and wheezing. Cardiovascular: Negative for chest pain and leg swelling. Gastrointestinal: Negative for abdominal distention, abdominal pain and nausea. Endocrine: Negative for cold intolerance, heat intolerance, polydipsia and polyuria. Genitourinary: Positive for menstrual problem. Negative for decreased urine volume, difficulty urinating, dysuria and genital sores. Dysmenorrhea Musculoskeletal: Negative for arthralgias, back pain, gait problem and joint swelling. Skin: Negative for color change, pallor and rash. Allergic/Immunologic: Negative. Neurological: Negative for dizziness, tremors, seizures, weakness, light- headedness and headaches. Hematological: Negative for adenopathy. Does not bruise/bleed easily. Psychiatric/Behavioral: Negative for agitation, behavioral problems, hallucinations and suicidal ideas. The patient is not nervous/anxious. Vitals: Blood pressure 110/78, temperature 98.3 F (36.8 C), temperature source Temporal, height 5' 6 (1.676 m), weight 154 lb (69.9 kg), last menstrual period 01/01/2021. Physical Exam HENT: Head: Normocephalic and atraumatic. Eyes: Pupils: Pupils are equal, round, and reactive to light. Cardiovascular: Rate and Rhythm: Normal rate and regular rhythm. Heart sounds: No murmur. No friction rub. No gallop. Pulmonary: Effort: Pulmonary effort is normal. Breath sounds: Normal breath sounds. Abdominal: General: Bowel sounds are normal. There is no distension. Palpations: Abdomen is soft. Tenderness: There is no abdominal tenderness. Genitourinary: Comments: External genitalia normal Genitalia, rugose without discharge Cervix long closed no gross lesions Uterus approximately 10 weeks estimated gestational age and irregular suggestive of fibroids as noted ultrasound. Adnexa benign nontender without masses. Uterus appears mobile. Musculoskeletal: General: Normal range of motion. Skin: General: Skin is warm and dry. Neurological: Mental Status: She is alert and oriented to person, place, and time. Neurologic Exam Mental Status Oriented to person, place, and time. Cranial Nerves CN III, IV, Pupils are equal, round, and reactive to light. Assessment and Plan 1. Menorrhagia with regular cycle Patient with multiple leiomyomatous uterus. She also has menorrhagia. Previous workup performed by women's care reviewed. I do believe the patient would benefit from robotic-assisted laparoscopic hysterectomy and bilateral salpingectomy. Patient would like to preserve her ovaries bilaterally, and as suming there is no endometriosis, believe this is reasonable/preferable. Risks and benefits to robotic-assisted laparoscopic hysterectomy reviewed. We also discussed the possibility that the fibroidscould complicate the procedure to the point where open laparotomy/ANA CRISTINA would be warranted. 2. Dysmenorrhea See above 3. Fibroids See above Face to face time with this patient was approximately 30 minutes with greater than 50% of the time spent in consultation and / or in coordination of care. Return for with [facility], Post op visit. The documentation within this encounter was likely aided with Dragon, and electronic cranberry grower device. Please excuse any errors or omissions that may not have been recognized at the time of this encounter. documented in this encounter* Kiran Barroso, PT - 05/13/2019 2:30 PM EDT [facility] OUTPATIENT REHABILITATION Evaluation Today's Date 05/16/2019 Patient Name: Devyn Naranjo Date of : 1980 Case Name: paresthesia Functional Diagnosis: SNOMED CT(R) 1. Paresthesia PARESTHESIA Clinical Information: Subjective Referring Diagnosis: Bilateral paresthesia UEs History of Present Illness Chief Complaint/ Mechanism of Injury: Overall symptoms began in december. Pt reports that she went to doctors in February- was having a lot of arm pain and her hands were going numb. Had shooting pains down the arms at intensity 7/10 which was waking her up at night. Pt reports that her arms have been feeling a little weak and fatigued. Reports now main symptoms are achy feeling into arms. Feels a lot inthe shoulder joints and elbows. Has a special needs son who she has to carry sometimes (50+ pounds). Has soreness in her neck and upper back. Had a surge feeling in her neck and fell over while bending down. Hit her head and had a concussion. Went to the doctors and had MRI and CT of neck and spine MRI cervical spine: Spinal canal stenosis at C5-6 and C6-7 due to posterior disc osteophyte complexes that indent the ventral aspect of the spinal cord asymmetrically greater along the right ventral aspect without spinal cord signal abnormality. There is very mild spinal canal stenosis at C4-5. 3. Moderate neural foraminal stenosis occurring on the right at C4-5 and bilaterally right greater than left at C6-7. Previous Imaging: EMG, MRI and CT (CT and EMG negative) Status: changing in presentation / symptoms. Pain Scale: Average Pain: 5/10 Pain at highest: 8/10 Aggravating factors: unable to identify any particular aggravators Easing factors: meloxicam, heating pad Functional Status Functional Limitations: limited mobility and recent decline in level of ADL Daily activity scale: active Prior level of function: very active Sleep Assessment Sleep disturbance: Sleep Disturbance Red Flags List: Recent passing out episode. Barriers to Care: None Fall risk screening Injured as a result of a fall in the last 12 months: Yes Personal Goals: Pt would like to decrease the pain in her arms Social History Synagogue, social, or cultural considerations to be made aware of before starting treatment: No Cervical Spine: Tenderness: upper trapezius Range of Motion - Cervical Protraction Loss: 0% Retraction Loss: 0% Flexion Loss: 0% Extension Loss: 0% Rt Rotation Loss: 25% Lt Rotation Loss: 25% Rt Side Bend Loss: 25% Lt. Side Bend Loss: 50% Muscle Strength Shoulder Shrug: Right: 5 Left: 5 Shoulder Abduction: Right: 5 Left: 4 (pain) Bicep: Right: 5 Left: 5 Tricep: Right: 5 Left: 5 Wrist Flexion: Right: 5 Left: 4+ Wrist Extension: Right: 5 Left: 5 Digit Abduction: Right: 5 Left: 5 Special Tests Spurling Right: Positive Left:Positive Compression/ Distraction: Negative VBI: Negative Special Testing Comments: (+) spurlings - pain noted into UT / shoulder of ipsilateral side; however, does not recreate the pain that she has most often Other Findings Sensation: normal Additional Cervical Findings:Thenar and hypothenar eminence WNL - no visible atrophy. 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 R: 85# L: 80# (+) ULTT 1 R >L (+) ULTT 3 R>L Increased tone bilateral UTs Treatments: Physical Therapy Exercise Log - 05/16/19 0813 OTHER Notes Supervising PT Kiran Easley Therapeutic Exercise ([id number]) Intervention Manual cervical traction Parameters Manual median nerve glides Intervention Self nerve glides ulnar Parameters UT stretch Intervention Cervical retract / nod Parameters supine retract + head lift Treatment Plan: Frequency of Visits: twice per week Duration: 4 weeks Interventions: Therapeutic Exercise, Neuromuscular Re-Education, Manual Therapy, Therapeutic/ Functional Activities, Hot/Cold Pack and Mechanical Traction Rehab Potential: fair Goals: Physical Therapy Ortho Goals: 1. Pt will demonstrate centralization of symptoms with decreased bilateral arm pain by at least 75%. 4 weeks 2. Pt will demonstrate improved cervical rotation ROM to WNL allowing for ease of environmental scanning. 4 weeks. IE date: 05/13/2019 Progress report due: Recert due: visit # 8 Patient Education provided: Anatomy Clinical Impression: Pt presents to PT with bilateral arm pain and diagnosis of paresthesia. Unableto recreate / change specific type of arm pain during the evaluation. Pt's UE strength is WNL with no signs of myelopathy. Taking into consideration clinical examination and diagnostic imaging, pt symptoms may be secondary to central canal stenosis. Pt will be treated with cervical traction, postural strengthening/stretching, cervical ROM. If no changes in symptoms will refer back to MD. Kiran Barroso PT STATE LICENSE, [id number] documented in this encounter Assessments Diagnosis Closed head injury, initial encounter- Primary Contusion of right eyelid, initial encounter Paresthesia Disturbance of skin sensation Diagnosis Syncope, unspecified syncope type Diagnosis Paresthesia Disturbance of skin sensation Diagnosis Paresthesia Disturbance of skin sensation Diagnosis Paresthesia Disturbance of skin sensation Diagnosis Paresthesia Disturbance of skin sensation Diagnosis Knee pain, unspecified chronicity, unspecified laterality Diagnosis Primary osteoarthritis of right knee- Primary Primary osteoarthritis of left knee Diagnosis Primary osteoarthritis of right knee Primary osteoarthritis of left knee S/P arthroscopy of right knee Other postprocedural status Diagnosis S/P right knee arthroscopy Diagnosis Acute URI- Primary Acute upper respiratory infections of unspecified site Sore throat Acute pharyngitis Diagnosis Acute gastritis, presence of bleeding unspecified, unspecified gastritis type- Primary Diagnosis Gastroesophageal reflux disease with esophagitis without hemorrhage- Primary LGI bleed Hemorrhage of gastrointestinal tract, unspecified Diagnosis Generalized abdominal pain Abdominal pain, generalized Preop testing Preoperative examination, unspecified Other constipation Bright red rectal bleeding Hemorrhage of rectum and anus Heartburn Diagnosis Paresthesia Disturbance of skin sensation Diagnosis Menorrhagia with regular cycle- Primary Excessive or frequent menstruation Dysmenorrhea Fibroids Leiomyoma of uterus, unspecified Menorrhagia with regular cycle Excessive or frequent menstruation Diagnosis Paresthesia Disturbance of skin sensation Reason for Referral Status Reason Specialty Diagnoses / Procedures Referred By Contact Referred To Contact Pending Review Cardiology Diagnoses Syncope, unspecified syncope type Procedures Cardiac event monitor Juana Dsa MD [address] [id number] Status Reason Specialty Diagnoses / Procedures Referred By Contact Referred To Contact Authorized Rehabilitation Diagnoses Lalitha Joshua MD [address] [id number] Status Reason Specialty Diagnoses / Procedures Referred By Contact Referred To Contact Authorized Neurology Diagnoses Lalitha Joshua MD [address] [id number] Status Reason Specialty Diagnoses / Procedures Referred By Contact Referred To Contact New Request Diagnoses LGI bleed Procedures CASE REQUEST - ENDOSCOPY Osmar Garcia MD [address] [address] Specialty Diagnoses / Procedures Referred By Contac t Referred To Contact Cardiology Diagnoses Bradycardia Near syncope Procedures Cardiac event monitor Clemente Landis MD [address] [place] [address] Referral ID Status Reason Start Date Expiration Date V isits Requested Visits Authorized [id number] Authorized 09/03/2021 09/03/2022 1 1 Specialty Diagnoses / Procedures Referred By Contac t Referred To Contact Cardiology Diagnoses Bradycardia Near syncope Procedures Stress test only, exercise Clemente Landis MD [address] [place] [address] Referral ID Status Reason Start Date Expiration Date V isits Requested Visits Authorized [id number] Authorized 09/03/2021 09/03/2022 1 1 Specialty Diagnoses / Procedures Referred By Contac t Referred To Contact Cardiology Diagnoses SOB (shortness of breath) on exertion Procedures Echocardiogram complete Clemente Landis MD [address] [place] [address] Referral ID Status Reason Start Date Expiration Date V isits Requested Visits Authorized [id number] New Request 09/03/2021 09/03/2022 1 1 Specialty Diagnoses / Procedures Referred By Contac t Referred To Contact Radiology Diagnoses Epigastric pain Procedures NM hepatobiliary scan with pharm agent w/cck Britney Montes PA-C [address] [place] [address] Referral ID Status Reason Start Date Expiration Date V isits Requested Visits Authorized [id number] Pending Review 02/19/2023 08/18/2023 3 3 Referral ID Status Reason Start Date Expiration Date V isits Requested Visits Authorized [id number] Authorized 02/19/2023 08/18/2023 3 3 Specialty Diagnoses / Procedures Referred By Contac t Referred To Contact Radiology Diagnoses Epigastric pain Procedures CT abdomen pelvis w contrast Matty Phoenix MD [address] [place] [address] Referral ID Status Reason Start Date Expiration Date Visits Re quested Visits Authorized [id number] Closed 04/02/2023 09/29/2023 1 1 Specialty Diagnoses / Procedures Referred By Contac t Referred To Contact Rehabilitation Diagnoses Osteoarthritis of right knee, unspecified osteoarthritis type Tammy Silva, OPERATIONS SPECIALIST [address] [place] [address] [address] Referral ID Status Reason Start Date Expiration Date Visits Requested Visits Authorized [id number] Authorized Specialty Services Required/Pat ient's Best Interest 11/12/2023 11/11/2024 1 1 Specialty Diagnoses / Procedures Referred By Contac t Referred To Contact Physical Therapy Diagnoses Status post total right knee replacement [place] [address] SERVICE NOT IN SYSTEM Referral ID Status Reason Start Date Expiration Date Visits Requested Visits Authorized [id number] Authorized Patient Preference 01/06/2024 01/05/2025 1 1 Chief Complaint and Reason for Visit Chief Complaint HTN (SELF REF) FATIGUE SNORING HTN ISSUES Reason for Visit Fatigue Bradycardia Essential (primary) hypertension QUINTANA (dyspnea on exertion) Fatigue Essential (primary) hypertension Chief Complaint HTN (SELF REF) FATIGUE SNORING HTN ISSUES QUINTANA QUINTANA QUINTANA Reason for Visit Fatigue Bradycardia Essential (primary) hypertension QUINTANA (dyspnea on exertion) Fatigue Essential (primary) hypertension Chief Complaint HTN (SELF REF) FATIGUE SNORING HTN ISSUES QUINTANA QUINTANA QUINTANA HYPERTENSION HEPATOMEGALY Reason for Visit Fatigue Bradycardia Essential (primary) hypertension QUINTANA (dyspnea on exertion) Fatigue Essential (primary) hypertension Chief Complaint HTN (SELF REF) FATIGUE SNORING HTN ISSUES QUINTANA QUINTANA QUINTANA HYPERTENSION HEPATOMEGALY HYPERTENSION Reason for Visit Fatigue Bradycardia Essential (primary) hypertension QUINTANA (dyspnea on exertion) Fatigue Essential (primary) hypertension Chief Complaint SCREENING abdominal pain/ EORDER LABS Chief Complaint SCREENING abdominal pain/ EORDER LABS BACK PAIN Chief Complaint BACK PAIN right sided abd pain, n/v/d Chief Complaint BACK PAIN right sided abd pain, n/v/d EST CARE XRAY EORDER Reason for Visit Back pain Segmental and somatic dysfunction of lumbar region Segmental and somatic dysfunction of pelvic region Chief Complaint BACK PAIN right sided abd pain, n/v/d EST CARE XRAY EORDER Back pain back pain Reason for Visit Back pain Segmental and somatic dysfunction of lumbar region Segmental and somatic dysfunction of pelvic region Back pain Segmental and somatic dysfunction of cervical region Segmental and somatic dysfunction of lumbar region Segmental and somatic dysfunction of pelvic region Segmental and somatic dysfunction of thoracic region Chief Complaint Admit Date Referred by PCP July 13, 2025 1:27pm E-ORDER July 13, 2025 2:15pm Reason for Visit Admit Date Abdominal pain July 13, 2025 1:27pm Mixed irritable bowel syndrome July 13, 2025 1:27pm Additional Source Comments INFORMATION SOURCE (unrecogn ized section and content) DATE CREATED AUTHOR 04/23/2018 [facility] DATE CREATED AUTHOR AUTHOR'S ORGANIZ ATION 06/06/2019 [facility] DATE CREATED AUTHOR AUTHOR'S ORGANIZ ATION 07/24/2021 [facility] DATE CREATED AUTHOR AUTHOR'S ORGANIZ ATION 10/25/2021 [facility] DATE CREATED AUTHOR AUTHOR'S ORGANIZ ATION 12/03/2021 [facility] DATE CREATED AUTHOR AUTHOR'S ORGANIZ ATION 04/16/2023 [facility] DATE CREATED AUTHOR AUTHOR'S ORGANIZ ATION 01/10/2024 [facility] DATE CREATED AUTHOR AUTHOR'S ORGANIZ ATION 06/06/2024 [facility] DATE CREATED AUTHOR AUTHOR'S ORGANIZ ATION 07/15/[address] [facility] Reason for Visit (unrecogniz ed section and content) Reason Comments Physical Therapy Specialty Diagnoses / Procedures Referred By Contac t Referred To Contact Rehabilitation Diagnoses Osteoarthritis of right knee, unspecified osteoarthritis type Tammy Silva, OPERATIONS SPECIALIST [address] [place] [address] [facility] [place] [address] [place] [address] Referral ID Status Reason Start Date Expiration Date Visits Requested Visits Authorized [id number] Authorized Specialty Services Required/Pat ient's Best Interest 11/12/2023 11/11/2024 7 199 Reason Comments Syncope Status Reason Specialty Diagnoses / Procedures Referre d By Contact Referred To Contact Diagnoses Syncope Status Reason Specialty Diagnoses / Procedures Referre d By Contact Referred To Contact Diagnoses Syncope Status Reason Specialty Diagnoses / Procedures Referred By Contact Referred To Contact Pending Review Cardiology Diagnoses Syncope, unspecified syncope type Procedures Cardiac event monitor Juana Das MD [address] [place] [address] Reason Comments Numbness Patient is having nu mbness and a lot of pain in both arms. She has had this problem for 2 months. Status Reason Specialty Diagnoses / Procedures Referred By Contact Referred To Contact Closed Specialty Services Required/Patient 's Best Interest Neurosurgery Diagnoses Paresthesia Osmar Garcia MD [address] [place] [address] Lalitha Iraheta MD [address] [id number] Status Reason Specialty Diagnoses / Procedures Referred By Contact Referred To Contact Authorized Rehabilitation Diagnoses Lalitha Joshua MD [address] [place] [address] [address] [id number] Status Reason Specialty Diagnoses / Procedures Referred By Contact Referred To Contact Authorized Rehabilitation Diagnoses Lalitha Joshua MD [address] [place] [address] [place] [address] Reason Comments Pain Status Reason Specialty Diagnoses / Procedures Re ferred By Contact Referred To Contact Diagnoses Primary osteoarthritis of right knee Primary osteoarthritis of left knee Primary osteoarthritis of right knee [M17.11] Primary osteoarthritis of left knee [M17.12] Procedures MA KNEE SCOPE,MED/LAT MENISECTOMY MA REMOVAL DEEP IMPLANT Melody Fuentes MD [address] [place] [address] Reason Comments Follow-up Suture / Staple Removal Wound Check Reason Comments Sore Throat Reason Comments Nausea Emesis Reason Comments ED Follow-up Bloated Status Reason Specialty Diagnoses / Procedures Re ferred By Contact Referred To Contact Diagnoses Generalized abdominal pain Preop testing Other constipation Bright red rectal bleeding Heartburn Generalized abdominal pain [R10.84] Preop testing [Z01.818] Other constipation [K59.09] Bright red rectal bleeding [K62.5] Heartburn [R12] Procedures MA ESOPHAGOGASTRODUODENOSCOPY TRANSORAL DIAGNOSTIC MA COLONOSCOPY FLX DX W/COLLJ SPEC WHEN PFRMD EGD DIAGNOSTIC COLONOSCOPY DIAGNOSTIC Status Reason Specialty Diagnoses / Procedures Referre d By Contact Referred To Contact Closed Neurology Diagnoses Lalitha Joshua MD [address] [place] [address] Waqar Alcocer MD [address] [place] [address] Reason Comments New Patient had work up for hyst erectomy, heavy vag bleeding, severe cramping Reason Comments Post Op Visit 04/16/2021 [facility], bila teral salpingectomy Reason Comments Hypertension Reason Comments Follow-up Reason Onset Date Comments Medication Refill 11/14/2021 Reason Comments Constipation Reason Comments Pain Follow-up Reason Comments 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 - GERD/POSSIBLE HERNIA Reason Onset Date Comments Endoscopy 02/23/2023 Specialty Diagnoses / Procedures Referred By Az t Referred To Contact Radiology Diagnoses Epigastric pain Procedures NM hepatobiliary scan with pharm agent w/cck Britney Montes PA-C [address] [facility] [address] [place] [address] Referral ID Status Reason Start Date Expiration Date V isits Requested Visits Authorized [id number] Authorized 02/19/2023 08/18/2023 3 3 Reason Onset Date Comments Other 03/27/2023 Specialty Diagnoses / Procedures Referred By Az jiménez Referred To Contact Diagnoses Dysphagia Dysphagia [R13.10] Procedures MA EGD TRANSORAL BIOPSY SINGLE/MULTIPLE EGD WITH BIOPSY Matty Phoenix MD [address] [facility] [address] [place] [address] [facility] [address] [place] [address] Referral ID Status Reason Start Date Expiration Date Visits Re quested Visits Authorized [id number] 1 1 Specialty Diagnoses / Procedures Referred By Az jiménez Referred To Contact Radiology Diagnoses Epigastric pain Procedures CT abdomen pelvis w contrast Matty Phoenix MD [address] [place] [address] Referral ID Status Reason Start Date Expiration Date Visits Re quested Visits Authorized [id number] Closed 04/02/2023 09/29/2023 1 1 Reason Onset Date Comments Results 04/15/2023 CT Reason Comments Pain Reason Comments Pre-op Exam Reason Comments Wound Check Reason Onset Date Comments Medication Refill 01/15/2024 Reason Comments Follow-up Suture / Staple Removal Reason Onset Date Comments Medication Refill 02/12/2024 Reason Onset Date Comments Medication Refill 06/03/2024 Thierry Garland MD - 03/22/2019 10:44 AM Melody Cintron MD - 10/07/2019 9:56 AM Melody Field MD - 09/28/2019 6:11 PM Wilder Thornton MD - 01/01/2021 9:53 AM EST H&P Notes (unrecognized sect ion and content) [facility] Medicine Inpatient H&P 03/22/2019 Thierry Garland MD [facility] Patient: Devyn Naranjo Date of : 1980 (39 y.o.) PCP: Quiana Warren OPERATIONS SPECIALIST Assessment Devyn Naranjo 39 y.o. female presented with Syncope status post mechanical fall Active Problems: Syncope SNOMED CT(R): SYNCOPE Plan: Admit to observation unit telemetry bed Clinical condition fair CODE STATUS full code Echocardiogram MRI of the brain A1c lipid panel work-up for syncope Consult neurology Start the patient on aspirin 81 mg p.o. daily Neuro check every 6 hours and as needed Troponin x2 3 hours apart DVT prophylaxis with SCD SUBJECTIVE: Chief Complaint: Syncope and mechanical fall History of Presenting Illness: Devyn Naranjo is a 39 y.o. female She is a 39-year-old white female who was out last night admittedly drinking though passed out when standing up from car fell and hit head and face does not remember the event states she passed out prior to the fall does come in with large right-sided eye contusion periorbital no eye entrapment no vision changes states she woke up at 4:30 AM with left-sided weakness went back to sleep and states he came in now because it is not improving states she tried to get up and walking and felt her left arm and leg become numb and almost give out on her patient denies any other symptoms outside of some left shoulder chest wall pain patient denies any cervical pain no tenderness to palpation hip pelvis abdomen or any other area of the back Review of Systems: 10 systems reviewed and negative other than noted in HPI History: Past Medical History: Diagnosis Date Arthritis Bradycardia Past Surgical History: Procedure Laterality Date KNEE SURGERY X3 Family History Problem Relation Age of Onset Clotting disorder Maternal Grandmother Social History Tobacco Use Smoking Status Never Smoker Smokeless Tobacco Never Used Social History Substance and Sexual Activity Alcohol Use Yes Alcohol/week: 1.0 standard drinks Types: 1 Glasses of wine per week Comment: occasional-- states drinking 4 beers last night Family and Social History reviewed and non-pertinent to this visit reviewed Allergies: Patient has no known allergies. Home Medications: Outpatient Medications as of 03/22/2019 Medication Sig meloxicam (MOBIC) 15 MG tablet Take 15 mg by mouth daily . OBJECTIVE: Physical Examination: BP (!) 154/84 Pulse (!) 59 Temp 99 F (37.2 C) (Oral) Resp 16 Ht 5' 5 Wt 68 kg (149 lb 14.6 oz) SpO2 98% BMI 24.95 kg/m General Appearance: Alert, well appearing, and in no acute distress. HEENT: Head - Normocephalic, atraumatic. Eyes - BRICE bilaterally and EOMI. Ears - normal external appearance, hearing intact. Nose - normal, no erythema. Throat - mucous membranes moist, pharynx without lesions. Neck: Supple, trachea midline. Cardiovascular: S1, S2 normal. No murmurs, rubs, clicks or gallops appreciated. No pedal edema. Respiratory: Lungs clear to auscultation, no wheezes, rales or rhonchi heard. Abdomen: Soft, non-tender, normal bowel sounds, non-distended, no masses or organomegaly appreciated. Neurological: Grossly normal motor and sensory exam. No focal deficits. Musculoskeletal: No joint tenderness, deformity or swelling. Skin: Normal coloration and turgor. No rashes. Psych: Alert, oriented x 3. Normal mood and affect. Laboratory and Additional Data Reviewed: Results/Medications Reviewed 03/22/19 10:44 AM: Results from last 7 days Lab Units 03/22/19 1004 SODIUM mmol/L 141 POTASSIUM mmol/L 3.8 CHLORIDE mmol/L 108 BUN mg/dL 11 CREATININE mg/dL 0.84 GLUCOSE mg/dL 74 Results from last 7 days Lab Units 03/22/19 1004 WBC K/mcL 7.51 HGB g/dL 13.9 HCT % 40.0 PLT K/mcL 253 Results from last 7 days Lab Units 03/22/19 1004 TROPONIN I ng/L <15 Results from last 7 days Lab Units 03/22/19 1004 INR 1.0 POCINR 0.9 Results from last 7 days Lab Units 03/22/19 1004 ALK PHOS U/L 44 BILIRUBIN TOTAL mg/dL 0.5 BILIRUBIN DIRECT mg/dL 0.1 TOTAL PROTEIN g/dL 8.0 ALTR U/L 24 AST U/L 26 CULTURES: Reviewed 10:44 AM IMAGING: Reviewed 10:44 AM documented in this encounter INTERVAL HISTORY AND PHYSICAL Patient Name: Devyn Naranjo Admit Date: [id number] MR #: [id number] : 1980 The H&P has been reviewed and the patient has been examined. I concur with the findings of the H&P. There are no significant changes. It is appropriate to proceed with the planned procedure. Melody Fuentes MD 10/07/2019 9:56 AM She comes today for preop visit at a young age of 39. Over 20 years ago she had 2 surgeries. She has had knee arthroscopies, ACL reconstructions, ACL reduced. Unfortunately, she really needs a knee replacement but would like to have 1 more attempt today on knee arthroscopy and a screw removal that she feels like is causing crepitus in her knee. Reviewing the x-rays shows the tibial screw that does appear to be penetrating the tibial plateau joint surface. She is presenting now for her preoperative visit. ALLERGIES None. MEDICINES Mobic. SURGERIES She has had bilateral knee surgery x2. FAMILY HISTORY Negative. ALLERGIES None. REVIEW OF SYSTEMS Knee pain, joint pain, arthralgias. X-ray examination reveals tricompartmental degenerative changes, minimal preservation of the joint space on the right knee on the medial compartment. The tibial screw does appear to penetrate through the tibial plateau space. PHYSICAL EXAM Chest: Clear. Heart: Regular rate and rhythm. Abdomen: Benign. Neck: No carotid bruits are noted. Bilateral lower extremities: Neurologically intact. 2+ pulses. The right knee has 7 degree knee flexion contracture with 110 degrees of flexion, severe crepitus, mild knee effusion. No varus or valgus instability. She has an anterior drawer of 1 cm, a Tiffanie of 1 cm. Negative posterior drawer. IMPRESSION 1.Right knee degenerative arthrosis. 2.Symptomatic hardware, right knee. PLAN At this point in time, we are going to proceed forward with knee arthroscopy and screw removal. I have informed her ultimately she is looking at a knee replacement at a young age. She understands that. I have included the patient in the entire decision-making process. We have talked about operative and nonoperative options. I have reviewed her narcotics check. Last medication was Vicodin back in March of 2018. documented in this encounter I have examined the patient and reviewed the previous H&P 12/17/2020. Wilder Hale MD, 01/01/2021, 9:53 AM. 12/17/2020 History of Present Illness Devyn Corona is a 40 y.o. female who presents to the [facility] today for consultation regarding Rectal Bleeding, Nausea (vomiting), and Constipation. She has a past medical history of Anxiety, Depression, and Migraine. Past Surgical History: Procedure Laterality Date AUGMENTATION BREAST 2010 KNEE SURGERY Right x2 KNEE SURGERY Left STOMACH SURGERY tummy tuck TUBAL LIGATION Current Outpatient Medications Medication Sig ferrous sulfate 325 (65 Fe) MG Tab tablet Take 325 mg by mouth. Multiple Vitamin (ONE-DAILY MULTIVITAMINS) Tab Take 1 tablet by mouth Daily (with dinner). Ezel-3 Fatty Acids (Fish Oil) 1000 MG capsule Take 1 capsule by mouth daily. pantoprazole [address] tablet DR Take 40 mg by mouth daily. Vitamin D3 25 MCG (1000 UT) tablet Take 1,000 Units by mouth daily. bisacodyl (Dulcolax) [address] Take As written instructions given. Loratadine 5 MG Chew Tab Chew 5 mg Every morning as needed. magnesium citrate 1.745 GM/30ML Solution Take as written instructions sodium sulfate-potassium sulfate (Suprep Bowel Prep Kit) 17.5-3.13-1.6 GM/177ML Solution oral solution Suprep (mix as directed on box) and drink 2 16 oz glasses of water. No Known Allergies Social History Social History Narrative Not on file Substance Abuse History She reports that she has never smoked. She has never used smokeless tobacco. She reports current alcohol use. She reports that she does not use drugs. Family History Her Family history is unknown by patient. REVIEW OF SYSTEMS Patient Questionnaire: Upper ABD Pain: yes Lower ABD Pain: No ABD Swelling: yes Anal/ rectal Pain: yes Belching: yes Black Stools: yes Bloating: yes Change in Bowel Habits: No Constipation: yes Dairy Intolerance: No Diarrhea: No Flatulence: yes Heart Burn: yes Mucus in Stool: No Nausea / Vomiting: yes Pain w/ Bowel Movement: yes Rectal Bleeding: yes Rectal Urgency: No Reflux: yes Soiling Stool / incontinence: No ROS: Constitutional Fever: no Weight Gain no Weight Loss yes 7 lbs in 2 weeks Cardiovascular Chest Pain: no Palpitations: no Respiratory Oxygen: no Asthma: no Cough: no SOB: no GI Blood in Stool: no Melena: no Hemorrhoids: No Pain Myalgia: no Joint pain: no Back Pain: no Hematologic Bruise Easily: no Bleed Easily: no Psychiatric Depression: no Insomnia: no Neurologic Headache: no Visual Impairment: no ENT Dysphagia: yes Pain on Swallowing: yes Endocrine Diabetes: no Thyroid Disorder: no VITAL SIGNS There were no vitals taken for this visit. Referring Doctor: Dr. Garcia for colonoscopy/egd. Never had scope done. Takes iron. Insurance Company: [employer] Video Shown: yes Schedule: January 01 for colonoscopy/egd. Physical Exam Constitutional: is oriented to person, place, and time and well-developed, well-nourished, and in no distress. HENT: Normocephalic. Normal oropharynx. Eyes: Conjunctivae are normal. No scleral icterus. Cardiovascular: Normal rate and normal heart sounds. Exam reveals no gallop and no friction rub. No murmur heard. Pulmonary/Chest: Effort normal. has no wheezes. has no rales. Abdominal: Soft. Normal appearance and bowel sounds are normal. exhibits no distension, no ascites and no mass. There is no hepatomegaly. There is no tenderness. There is no rebound and no guarding. Musculoskeletal: Normal range of motion. exhibits no edema and no tenderness. Skin: Skin is warm and dry. No erythema. Neurologic: Oriented to person, place, and time. 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 Osmar Garcia ; comes with recurrent episodes of heartburn and dysphagia and constant belching, in spite of taking pantoprazole daily for the past few weeks. She also gives history of new onset constipation in spite of taking MiraLAX daily for the past few weeks and small-volume rectal bleeding on wiping only. She gives history of 7 pound weight loss within the past 3 weeks. No hematemesis or diarrhea. She drinks a cup of coffee daily. She denies tobacco use or NSAID use or ethanol use. She had abdominoplasty done in 2009. She also had tubal ligation and breast augmentation. Father of lung cancer. Mother is living and healthy. During visit to the emergency room on 12/03/[address] scan of abdomen done which was reported as showing thickening of stomach wall consistent with gastritis and fibroid tumor in the uterus. CBC and CMP and lipase are all normal. Hemoglobin 13.9 g. Differential diagnosis includes Acid reflux disease, Barretts, Peptic ulcer and cancer of esophagus and stomach. DIFFERENTIAL DIAGNOSIS INCLUDES DIVERTICULOSIS, HEMORRHOIDS, ULCERATIVE COLITIS, CROHNS DISEASE AND COLON CANCER. Patient was advised to undergo [id number], Nature of procedure, risks, benefits and complications including bleeding, organ perforation and missing lesions were explained and the video about EGD was shown to the patient and patient agreed and has signed informed consent. Patient was advised to undergo Colonoscopy. Nature of procedure, risks and complications including bleeding, organ perforation and possibility of missing lesions were explained and patient also watched the video explaining colonoscopy and patient agreed and has signed informed consent. Patient was advised to have Colonoscopy and possible Rubber-band treatment of Hemorrhoids. Risk of baylee COVID-19 and [facility] policy requiring negative testing for smallwood virus and home quarantine until test result is back were all explained and patient agrees. This dictation was created using [employer] voice recognition technology. On occasion , the spoken word may be misinterpreted by the technology ; leading to Omissions or Inappropriate words or Phrases. I told her to avoid all NSAID medications and given a list of NSAID medications. I told her to avoid caffeine completely. I told her to take pantoprazole on an empty stomach 30 minutes before breakfast. Wilder Hale MD 12/17/2020 documented in this encounter Waqar Alcocer MD - 03/23/2019 3:09 PM EDT Procedure Notes (unrecognize d section and content) Associated Order(s): EEG (STANDARD) [facility] EEG Report Reason for EEG: Seizures Summary: This is a 16 channel digital EEG recording. There is a moderately well-developed, moderately well organized background activity with a posterior dominant rhythm of 9 to 10 Hz. Hyperventilation and photic stimulations were not done. No sleep patterns are noted. No clear epileptiform discharges or ictal activity were seen. Impression: This is a normal EEG in the awake state. There is no clear electrodiagnostic evidence of a diffuse or focal neurophysiological disturbance. No clear epileptiform discharges or ictal activity was seen. documented in this encounter Juana Das MD - 03/23/2019 1:38 PM ELIERTTWaqar zaman MD - 03/22/2019 4:45 PM EDT Consult Notes (unrecognized section and content) Associated Order(s): IP CONSULT TO CARDIOLOGY General Cardiology Inpatient Consult Heart & Vascular [facility] 03/23/2019 Katya Enriquez CNP [facility] Patient: Devyn Naranjo Date of : 1980 (39 y.o.) Referring Provider: No ref. provider found PCP: Quiana Warren CNP Attending Addendum I have personally seen and examined the patient. I have reviewed the pertinent lab and diagnostic data (new and old if applicable). I agree with the [facility] history, physical exam, assessment and plan, by Katya Enriquez, with modifications listed below. Syncope clinical symptoms and history suggest dehydration and excessive alcohol intake. Given her history of sinus bradycardia I feel it is prudent to update a 30-day event recorder. We will make those arrangements. There is no clinical evidence to suggest ischemic heart disease with negative troponin and normal EKG which I personally reviewed. I personally reviewed also her normal echocardiogram.. She did have a stress ECG treadmill test in 2016 that was low risk with Jesus score of 9. Upper and lower extremity numbness she is undergoing an evaluation with Dr. Jose Hickman no valve disease on echo Physical Exam Constitutional: She is oriented to person, place, and time. She appears well-developed and well-nourished. No distress. HENT: Head: Normocephalic. Right periorbital ecchymosis Eyes: No scleral icterus. Neck: No JVD present. Cardiovascular: Regular rhythm and intact distal pulses. Bradycardia present. Murmur heard. Pulmonary/Chest: Effort normal and breath sounds normal. No respiratory distress. Abdominal: Soft. She exhibits no distension. There is no tenderness. Musculoskeletal: She exhibits no edema. Neurological: She is alert and oriented to person, place, and time. Skin: Skin is warm and dry. Psychiatric: She has a normal mood and affect. Her behavior is normal. Judgment and thought content normal. Thank you for the consult and please do not hesitate to contact me with an questions or concerns. Juana Das MD Assessment/Plan: Syncope Assessment & Plan Syncopal episode occurring on Thursday in the setting of sitting in the sun and drinking 4 alcoholic beverages. Denied any associated chest pain, shortness of breath, palpitations, lightheadedness or dizziness. Alcohol level on arrival 24 hours later was 27.2 mg/dL. Troponin x3 have been negative. EKG showed sinus bradycardia rate [address] or T wave abnormalities. She denies any previous syncopal episodes. 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 Previous 30-day event monitor for palpitations in 2012 showed all transmissions to be sinus rhythm with the vast majority being sinus bradycardia rates upper 30s to low 40s. One auto transmission showed heart rate of 32 occurring nocturnally. Echocardiogram 03/22/2019 shows normal LV size and function, normal wall motion. LVEF greater than for 65%. Normal diastolic function. Normal RV size and function. No hemodynamically significant valvular disease. Telemetry reviewed, patient has been in sinus bradycardia rates 40s to 50s without significant pauses or ventricular arrhythmias. Electrolytes within normal limits. MRI of the brain showed no acute process. Bradycardia Assessment & Plan History of known bradycardia dating back to 2012. 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 Previous 30-day event monitor for palpitations in 2012 showed all transmissions to be sinus rhythm with the vast majority being sinus bradycardia rates upper 30s to low 40s. One auto transmission showed heart rate of 32 occurring nocturnally. Telemetry reviewed. Sinus bradycardia rates 40s to 50 without pauses noted. Subjective: Reason for Consultation: syncope/bradycardia CC: I passed out History of Present Illness: Devyn Naranjo is a 39 y.o. female with a past medical history significant for known bradycardia and arthritis of right knee, who presented to the hospital Thursday after a syncopal episode on Thursday. Patient states her family is in the process of moving and on Thursday they went to a friend's house to relax by their pool for a few hours, where she admits to drinking 4 beers. She states she felt fine when they left and no issues on the ride home. When she opened the door to get out at home her states she went right down striking the right side of her face on the driveway. She was seen by her PCP on the Thursday preceding this due to complaints of bilateral hand numbness and he was beginning the work-up for carpal tunnel. She denies ever having a syncopal episode in the past. She was evaluated in 2012 for palpitations for which she had a 30-day event monitor. This was interpreted by our group and revealed all transmissions to be sinus rhythm the vast majority showing sinus bradycardia with rates upper 30s to lower 40s. Rare PVCs noted. One auto transmission showed heart rate of 32 occurring nocturnally. No further follow-up was recommended. Patient endorses a very active lifestyle. 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 She additionally cares for her disabled son who needs to be physically carried for transport. Currently she denies any complaints of chest pain, shortness of breath, lightheadedness or dizziness. Past Medical History: Diagnosis Date Arthritis Bradycardia Past Surgical History: Procedure Laterality Date BREAST AUGMENTATION Bilateral KNEE SURGERY X3 Family History Problem Relation Age of Onset Clotting disorder Maternal Grandmother Social History Tobacco Use Smoking Status Never Smoker Smokeless Tobacco Never Used Allergies: Patient has no known allergies. Prior to Admission medications Medication Sig Start Date End Date Taking? Authorizing Provider meloxicam (MOBIC) 15 MG tablet Take 15 mg by mouth daily . 12/29/18 Yes Historical Provider, Current Facility-Administered Medications Medication Dose Route Frequency Provider Last Rate Last Dose acetaminophen (TYLENOL) tablet 650 mg 650 mg Oral Q4H PRN Thierry Garland MD 650 mg at 03/23/19 1230 aspirin chewable tablet 81 mg 81 mg Oral Daily Thierry Garland MD 81 mg at 03/23/19 0849 ondansetron (ZOFRAN) injection 4 mg 4 mg Intravenous Q6H PRN Thierry Garland MD perflutren lipid microspheres (DEFINITY) 0.143 mg/mL solution 0-10 mL of mixture 0-10 mL of mixture Intravenous Once in imaging Thierry Garland MD Current Outpatient Medications Medication Sig Dispense Refill meloxicam (MOBIC) 15 MG tablet Take 15 mg by mouth daily . 5 Review of Systems: Review of Systems Constitution: Negative for chills, fever and malaise/fatigue. HENT: Negative for congestion. Eyes: Negative for blurred vision and double vision. Cardiovascular: Negative for chest pain, dyspnea on exertion, leg swelling, orthopnea and paroxysmal nocturnal dyspnea. Respiratory: Negative for cough and shortness of breath. Endocrine: Negative for cold intolerance and heat intolerance. Skin: Positive for color change (right periorbital ecchymosis). Negative for rash. Musculoskeletal: Positive for joint pain (right knee chronic). Gastrointestinal: Negative for abdominal pain, nausea and vomiting. Genitourinary: Negative for dysuria. Neurological: Positive for numbness (b/l hands L>R). Negative for dizziness and light-headedness. Psychiatric/Behavioral: Negative for altered mental status. Objective: Vital Signs: BP 119/71 Pulse (!) 44 Temp 98.5 F (36.9 C) (Oral) Resp 14 Ht 5' 5 Wt 68.8 kg (151 lb 11.2 oz) SpO2 98% BMI 25.24 kg/m Physical Examination: Physical Exam Constitutional: She is oriented to person, place, and time. She appears well-developed and well-nourished. No distress. HENT: Head: Normocephalic. Right periorbital ecchymosis Eyes: No scleral icterus. Neck: No JVD present. Cardiovascular: Regular rhythm and intact distal pulses. Bradycardia present. Murmur heard. Pulmonary/Chest: Effort normal and breath sounds normal. No respiratory distress. Abdominal: Soft. She exhibits no distension. There is no tenderness. Musculoskeletal: She exhibits no edema. Neurological: She is alert and oriented to person, place, and time. Skin: Skin is warm and dry. Psychiatric: She has a normal mood and affect. Her behavior is normal. Judgment and thought content normal. Echocardiogram complete Final Result by Constance Raymundo MD (03/22/2019 1547) Stress test only, exercise Final Result by Weston Gay DO (03/04/2016 0940) Lab Results Component Value Date WBC 7.51 03/22/2019 HGB 13.9 03/22/2019 HCT 40.0 03/22/2019 MCV 86.4 03/22/2019 EXTMCV 87.7 04/22/2018 PLT 253 03/22/2019 RBC 4.63 03/22/2019 Lab Results Component Value Date CREATININE 0.84 03/22/2019 BUN 11 03/22/2019 NA 141 03/22/2019 K 3.8 03/22/2019 CL 108 03/22/2019 BICARB 25 03/22/2019 Lab Results Component Value Date NA 141 03/22/2019 K 3.8 03/22/2019 CL 108 03/22/2019 Lab Results Component Value Date TROPONINI <15 03/22/2019 Katya Enriquez CNP Associated Order(s): IP CONSULT TO NEUROLOGY Neurology Inpatient Consult [facility] 03/22/2019 Patient: Devyn Naranjo Date of : 1980 (39 y.o.) Referring Provider: Refer to consult order in electronic medical record PCP: Quiana Warren CNP ASSESSMENT: 39 y.o. female presented to [facility] on 03/22/2019 with syncope. PLAN: Syncope Patient with syncopal episode and landed on the right face after coming out of her car. She mentioned the left arm and leg to be numb and has some paresthesias. She has no history of syncopal episode in the past. No witnessed tonic-clonic seizure. No tongue biting or incontinence. Patient with history of palpitation and had a Holter placed 6 years ago. The right face remains swollen and sore. Decreased pinprick on the left forearm and leg compared to the right side. Right periorbital ecchymosis and edema. Brain MRI: 1. No acute intracranial process. No acute intracranial hemorrhage, mass, extraaxial fluid collection, or acute infarction. 2. Very mild scattered foci of white matter T2 hyperintensity are nonspecific although likely due to chronic microangiopathic change. Cervical MRI: 1. No acute fracture. 2. Spinal canal stenosis at C5-6 and C6-7 due to posterior disc osteophyte complexes that indent the ventral aspect of the spinal cord asymmetrically greater along the right ventral aspect without spinal cord signal abnormality. There is very mild spinal canal stenosis at C4-5. 3. Moderate neural foraminal stenosis occurring on the right at C4-5 and bilaterally right greater than left at C6-7. Suggestion: 1. We will check EEG. 2. Therapy and fall precautions. 3. Keep well-hydrated and avoid sudden changes in position. 4. No alcohol and reduce caffeine intake. 5. Cardiovascular evaluation. 6. Follow-up with outpatient neurosurgery for cervical stenosis. 7. Outpatient EMG bilateral upper extremity. I have personally reviewed/visualized the patient's images, as documented above. I have personally reviewed the patient's labs, as listed above. Impression, plan and suggestions was discussed with the patient. Questions and concerns were discussed and addressed. Juan parsons: Portions of this chart was created using [employer] voice recognition software. Occasional wrong-word or sound-like substitutions may have occurred due to inherent limitations of the voice recognition software. Please read the chart carefully and recognize, using context, where the substitutions have occurred. Answered questions and rediscussed plan at length with Patient. DIAGNOSTIC TESTING SUMMARY: Pending Lab and Radiology Results Order Current Status XR Chest 1 View Preliminary result Resulted Testing: (MRI/CT/XR, EEG, EMG, CSF, Cardiac, Labs) SUBJECTIVE: Chief Complaint/Reason for Consult: Syncope. Informant(s): Patient History of Present Illness: Devyn Naranjo is a 39 y.o. female who was admitted because of pass out. Patient was in the pool and had 2 beers and drove home around 6:30 PM on March 21, 2019 and without any warning pass out. She landed on the right face. She initially did not come to the hospital. Her right face was red and swelling. She was in and out of the consciousness according to the patient's mother. She describes persistent numbness, paresthesias and abnormal sensation in the left arm and leg. The right face remains sore. She was brought to the ER and admitted for observation. No previous history of syncope, TIA, or seizure. Patient mentioned history of palpitations and had a Holter monitor placed 6 years ago. Past medical history is positive for osteoarthritis. The only medication she uses meloxicam. She has seen her primary care doctor recently because of intermittent hands and some shooting pain lasting around 20 minutes in duration and spontaneously disappear. She was scheduled to have an EMG done. No alcohol, tobacco, or recreational drug use. 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 Family history is negative for syncope or seizures. Review of Systems: All systems reviewed and negative except pertinent positives and negatives documented in the History of Present Illness (HPI). History: Past Medical History: Diagnosis Date Arthritis Bradycardia Past Surgical History: Procedure Laterality Date BREAST AUGMENTATION Bilateral KNEE SURGERY X3 Social History Socioeconomic History Marital status: Spouse name: Not on file Number of children: Not on file Years of education: Not on file Highest education level: Not on file Occupational History Not on file Social Needs Financial resource strain: Not on file Food insecurity: Worry: Not on file Inability: Not on file Transportation needs: Medical: Not on file Non-medical: Not on file Tobacco Use Smoking status: Never Smoker Smokeless tobacco: Never Used Substance and Sexual Activity Alcohol use: Yes Alcohol/week: 1.0 standard drinks Types: 1 Glasses of wine per week Comment: occasional-- states drinking 4 beers last night Drug use: No Sexual activity: Not on file Lifestyle Physical activity: Days per week: Not on file Minutes per session: Not on file Stress: Not on file Relationships Social connections: Talks on phone: Not on file Gets together: Not on file Attends hoahaoism service: Not on file Active member of club or organization: Not on file Attends meetings of clubs or organizations: Not on file Relationship status: Not on file Other Topics Concern Not on file Social History Narrative Not on file Family History Problem Relation Age of Onset Clotting disorder Maternal Grandmother Additional History Comments: None Allergies: Patient has no known allergies. HOME Medications: Prior to Admission medications Medication Sig Start Date End Date Taking? Authorizing Provider meloxicam (MOBIC) 15 MG tablet Take 15 mg by mouth daily . 12/29/18 Yes Historical Provider, PARoxetine (PAXIL) 10 MG tablet Take 10 mg by mouth daily. 03/22/19 Historical Provider, HOSPITAL Infusions: sodium chloride 0.9 % 100 mL/hr (03/22/19 1500) HOSPITAL Scheduled Medications: aspirin 81 mg Oral Daily HOSPITAL PRN Medications: acetaminophen, ondansetron, perflutren lipid microspheres OBJECTIVE: Physical Examination: BP 129/73 Pulse (!) 52 Temp 98.8 F (37.1 C) (Oral) Resp 14 Ht 5' 5 Wt 68.8 kg (151 lb 11.2 oz) SpO2 96% BMI 25.24 kg/m Patient is awake and alert. Normal development and fairly groomed. Not in distress or pain. Vital signs were reviewed. Neck is supple. No carotid bruits. No meningeal sign. Heart rate and rhythm is regular. No cardiac murmur. Breath sounds are clear bilateral lung alvarez. Abdomen is soft and nontender. Positive bowel sounds. No pedal edema. Pulses are 2+ symmetrically. No skin rash. Right periorbital ecchymosis and edema. Patient is oriented to month, season, year, place, and person. Attention and concentration were intact. Memory is intact. Recall: 3/3. Intact calculation, spelling, concentration, and abstraction. Language is intact. Able to name and repeat. Speech is fluent and is spontaneous. General fund of knowledge is intact. Pupils are 4 mm equally reactive to light. No ptosis, nystagmus, or visual field cuts. Extraocular muscles are intact. Fundus was not adequately visualized. Face is symmetrical and facial sensation is intact. Hearing is grossly intact. Palate moves symmetrical upward. Positive shoulder shrug. Tongue is midline. Gross strength is 5/5. Normal muscle tone and bulk. No muscle fasciculations. Sensory is intact to pinprick, vibration, light touch, and proprioception. No tremors, ataxia, dysmetria, or other abnormal involuntary movement. Deep tendon reflexes are 2+ symmetrically. No ankle clonus. Toes are downgoing on plantar stimulation. Finger to nose tests was normal. Toe to finger test was normal. Heel knee to alonso test was normal. Negative Tinel sign. documented in this encounter Ronni Otero RN - 03/22/2019 10:22 AM Hardeep Cagle LPN - 03/22/2019 10:07 AM Marcella Dueñas RN - 03/22/2019 10:05 AM Shelton Newman MD - 03/22/2019 10:03 AM EDT ED Notes (unrecognized secti on and content) Pt states tingling in b/l arms x2 weeks. Seen at pcp Thu and getting workup for carpel tunnel. States at 1830 lastnight, the left side of my body went numb and has been numb and weak and tingly since. Pt 's mother states at 1830, pt passed out and fell , hitting the r side of her face. . Pt presents a and ox3. Bruising and swelling noted around r side of eye. L side weakness noted. Pt states l arm and leg numbness and tingling. INR 0.9 dr weeks and ronni jane aware Alert called to [facility] to activate Cart at this time for pt with lkw of 6:30 pm last night and c/o left side weakness HPI Chief Complaint head injury left-sided weakness Patient Stated Complaint She is a 39-year-old white female who was out last night admittedly drinking though passed out when standing up from car fell and hit head and face does not remember the event states she passed out prior to the fall does come in with large right- sided eye contusion periorbital no eye entrapment no vision changes states she woke up at 4:30 AM with left-sided weakness went back to sleep and states he came in now because it is not improving states she tried to get up and walking and felt her left arm and leg become numb and almost give out on her patient denies any other symptoms outside of some left shoulder chest wall pain patient denies any cervical pain no tenderness to palpation hip pelvis abdomen or any other area of the back Allergy List : Reviewed-and agree with nurses notes Home Medication List : Reviewed-and agree with nurses notes Medical and Surgical History Active Problem List: Reviewed-and agree with nurses notes Family History Reviewed- see -nurses notes Vital Signs and Body Measurements Reviewed- see -nurses notes ROS At Least 10 Organ Systems Reviewed and Negative Except as Indicated in HPI Physical Examination: All findings normal unless otherwise noted Constitutional Alert & orientated x 3, No Acute Distress Well Nourished Head and Face :Normocephalic and Atraumatic Eye Extraocular Movement Intact Pupils Equally Round Reactive to light Ear Nose Throat Mucous Membranes Moist No Injury or Deformity Oropharynx Clear Cardiovascular Capillary Refill Less than 2 Seconds No Peripheral Edema Normal S1, S2 Pulses Normal Regular Rate and Rhythm Respiratory Clear to Auscultation Bilaterally Normal Rate and Effort no Respiratory Distress or Stridor Gastrointestinal Abdomen Soft Bowel Sounds Present Not Tender Distended Generalized Tenderness. No Guarding Rebound Rigid Genitourinary No Lesion Normal External Genitalia Musculoskeletal Distal Pulses Normal No Injury or Deformity No Calf Tendernes, no Paraspinous Tenderness or spinal ttp Cervical Lumbar Thoracic positive left sided chest wall shoulder tenderness to palpation Neurologic 5/5 Strength throughout No Focal Deficits Sensation Intact or Slurred Speech except positive slight 4.5 out of 5 weakness left upper extremity and left lower extremity Skin Dry No Lesion No Rash Normal Color Warm no Cyanosis Diaphoretic Lymph contusion periorbital right eye No Lymphadenopathy or Lymphadenopathy Lymphedema Psychiatric Appropriate Affect Cooperative not Depressed Manic or having Suicidal Thoughts Laboratory Results-reviewed see results Data Reviewed Medical Decision Making and Diagnosis Medical Decision Making Patient seen and evaluated labs imaging ordered reviewed imaging reviewed myself and radiologist patient upon initial evaluation stroke team was immediately called upon patient examination. Patient seen and examined by [place] stroke neurologist Dr. Bal who stated no further ER intervention head CT negative for any acute findings by him myself and the radiologist though he did recommend an admit for MRI head and neck patient to be admitted discussed with hospitalist understands all findings all questions addressed and answered and is happy and thankful for care Differential Diagnosis Considered Final Diagnostic Impression #1 syncope #2 contusion #3 head injury #4 paresthesia 5 left-sided weakness Disposition Admit Supervisory Note Billing Evaluation and Management Total Critical Care Time 38 minutes Shelton Weeks MD 03/22/19 1006 Shelton Weeks MD 03/22/[address] PAGED STROKE ALERT AND CALLED CT. CT READY FOR PT. documented in this encounter Pt updated. Resting in bed. States pain is tolerable at a 2/10 in abd. sr uxp2. Call light in reach. Family updated PT UPDATED ON PLAN OF CARE. THIS NURSE AND SACHA DANIELS CARTSIDE TO DO RECTAL EXAM. PT TOLERATES WELL. [facility] [place] ED SUN Note: NAME: Devyn Corona 40 y.o. CSN: [id number] PCP: Osmar Garcia MD History: Chief Complaint: Nausea and Emesis HPI: The history was obtained from the patient. Devyn is a 40 y.o. female who presents with a chief complaint of Nausea and Emesis. Patient is reporting onset of epigastric pain 3 weeks ago. Also notes nausea with decreased appetite 3 weeks ago as well. Pain in the epigastric region getting worse over the last 3 days. Unable to keep food or drink down since Thursday morning. Notes that her last stool a week ago looked dark and had streaks of blood - no stools since then. She feels as if she has gastric reflux. When she lays down, she feels a burning in her upper abdomen to the back of the throat. She had a Covid test 3 weeks ago and it was negative. Denies fever, chills, chest pain, shortness of breath, dizziness, diarrhea, urinary symptoms. Denies increased use of NSAIDs. Does not have a history of gastric reflux, has not taken anything [id number]. No changes to diet. PMHx: Past Medical History: Diagnosis Date Arthritis Bradycardia PMSx: Past Surgical History: Procedure Laterality Date ARTHROSCOPY KNEE Right 10/07/2019 Procedure: Right knee arthroscopy with screw removal, partial meniscectomy, abrasion chondroplasty ; Surgeon: Melody Fuentes MD; Location: Main OR; Service: Orthopedic BREAST AUGMENTATION Bilateral KNEE SURGERY X3 FAM. Hx: Family History Problem Relation Age of Onset Clotting disorder Maternal Grandmother SOC. Hx: Social History Socioeconomic History Marital status: Spouse name: Not on file Number of children: Not on file Years of education: Not on file Highest education level: Not on file Occupational History Not on file Social Needs Financial resource strain: Not on file Food insecurity Worry: Not on file Inability: Not on file Transportation needs Medical: Not on file Non-medical: Not on file Tobacco Use Smoking status: Never Smoker Smokeless tobacco: Never Used Substance and Sexual Activity Alcohol use: Yes Alcohol/week: 1.0 standard drinks Types: 1 Glasses of wine per week Comment: occasional-- states drinking 4 beers last night Drug use: No Sexual activity: Not on file Lifestyle Physical activity Days per week: Not on file Minutes per session: Not on file Stress: Not on file Relationships Social connections Talks on phone: Not on file Gets together: Not on file Attends hoahaoism service: Not on file Active member of club or organization: Not on file Attends meetings of clubs or organizations: Not on file Relationship status: Not on file Other Topics Concern Not on file Social History Narrative Not on file MEDs: Previous Medications Medication Sig ferrous sulfate 325 (65 FE) MG tablet Take 325 mg by mouth daily with breakfast . loratadine (CLARITIN) 5 mg chewable tablet Chew and Swallow 5 mg daily as needed for allergies . multivitamin (multivitamin) per tablet Take 1 tablet by mouth daily . omega-3 fatty acids-fish oil 340-1,000 mg cap Take 1 capsule by mouth daily . [DISCONTINUED] acetaminophen-codeine (Tylenol-Codeine #3) 300-30 mg per tablet 1-2 tabs q4-6 hours prn pain . [DISCONTINUED] celecoxib (CeleBREX) 100 MG capsule Take 1 (one) capsule (100 mg total) by mouth daily . [DISCONTINUED] meloxicam (MOBIC) 15 MG tablet Take 15 mg by mouth daily as needed . ALL: No Known Allergies ROS: Positives and pertinent negatives as per HPI. All other systems were reviewed and are negative. Physical Exam: Patient Vitals for the past 24 hrs: BP Temp Temp src Pulse Resp SpO2 Height Weight 12/03/20 1048 (!) 143/87 (!) 40 16 98 % 12/03/20 0812 (!) 182/98 98.2 F (36.8 C) Oral (!) 49 16 98 % 5' 5 70.3 kg (155 lb) Physical Exam Vitals signs and nursing note reviewed. Constitutional: General: She is not in acute distress. Appearance: Normal appearance. She is well-developed. She is not toxic- appearing. HENT: Head: Normocephalic and atraumatic. Nose: Nose normal. Eyes: General: No scleral icterus. Conjunctiva/sclera: Conjunctivae normal. Cardiovascular: Rate and Rhythm: Normal rate and regular rhythm. Heart sounds: Normal heart sounds. No murmur. Pulmonary: Effort: Pulmonary effort is normal. No respiratory distress. Breath sounds: Normal breath sounds and air entry. Abdominal: General: Abdomen is flat. Bowel sounds are normal. There is no distension. Palpations: Abdomen is soft. Tenderness: There is abdominal tenderness in the epigastric area. There is guarding. There is no right CVA tenderness or left CVA tenderness. Musculoskeletal: Right lower leg: She exhibits no swelling. No edema. Left lower leg: She exhibits no swelling. No edema. Skin: General: Skin is warm and dry. Findings: No rash. Neurological: Mental Status: She is alert and oriented to person, place, and time. Psychiatric: Behavior: Behavior normal. Behavior is cooperative. Laboratory & Radiological Imaging (if done): Labs Reviewed HEPATIC FUNCTION PANEL - Abnormal; Notable for the following components: Result Value Alkaline Phosphatase 37 (*) All other components within normal limits URINALYSIS - Abnormal; Notable for the following components: Clarity, Urine Hazy (*) Specific [place] 1.030 (*) Leukocyte Esterase, Urine Small (*) RBCs, Urine 6 (*) Bacteria, Urine Few (*) Squamous Epithelial 12 (*) Mucus, Urine Many (*) All other components within normal limits Narrative: Microscopic examination is performed on all urinalysis samples and only positive findings are reported. The test for blood on the chemical analytic portion of urinalysis may also be positive due to hemoglobinuria and myoglobinuria and if red blood cells are present they are quantified by microscopic examination. CHEM 7 - Normal Narrative: The eGFR should be used for monitoring renal function only and not for medication dosing. LIPASE - Normal HCG URINE, QUALITATIVE - Normal CBC AND DIFFERENTIAL Narrative: The following orders were created for panel order CBC w/ Diff. Procedure Abnormality Status --------- ------ CBC Auto Differential[[id number]] Final result Please view results for these tests on the individual orders. CBC WITH AUTO DIFFERENTIAL US Pelvic Transabdominal And Transvaginal With Color Flow Preliminary Result Technically difficult examination secondary to retroflexed position of the uterus. Enlarged, fibroid uterus. Right anterior body intramural fibroid (2.9 cm) and posterior lower uterine segment subserosal fibroid (4.2 cm). Left ovarian corpus luteum or hemorrhagic cyst (1.7 cm). Follow-up ultrasound in 6-12 weeks could be considered. Normal appearance of the endometrium. No significant free fluid. [employer] Workstation ID: [id number] CT Abdomen Pelvis With IV Contrast Only Preliminary Result 1. Normal appendix 2. No evidence of bowel obstruction. 3. There is thickening of the body of the stomach suggested which could indicate underlying gastritis. 4. 4.1 x 4 cm mass projects posteriorly from the uterus which could represent a large serosal fibroid. A pelvic ultrasound could be helpful. 5. Moderate amount of free pelvic fluid. [employer] Workstation ID: [id number] MDM: ED Course as of Dec 03 1320 Mon Dec 03, 2020 0851 WBC: 5.26 [RH] 0852 Negative Hemoccult. Last bowel movement 1 week ago, appeared dark per the patient. HGB: 13.9 [RH] 0852 HCT: 42.4 [RH] 0927 Minimal stool in vault. Tiny amount brown stool tested and negative. [RH] 0927 Leukocyte Esterase, Urine(!): Small [RH] 0927 RBCs, Urine(!): 6 [RH] 0927 Bacteria, Urine(!): Few [RH] 0927 Suspect contamination of urine sample. Asymptomatic. Squamous Epithelial(!): 12 [RH] 1008 IMPRESSION: 1. Normal appendix 2. No evidence of bowel obstruction. 3. There is thickening of the body of the stomach suggested which could indicate underlying gastritis. 4. 4.1 x 4 cm mass projects posteriorly from the uterus which could represent a large serosal fibroid. A pelvic ultrasound could be helpful. 5. Moderate amount of free pelvic fluid CT Abdomen Pelvis With IV Contrast Only [RH] 1016 States she is feeling better. Discussed CT results. She does report mild lower abdominal pressure/pain. Will continue with US transvaginal/transabdominal. [RH] 1305 IMPRESSION: Technically difficult examination secondary to retroflexed position of the uterus. Enlarged, fibroid uterus. Right anterior body intramural fibroid (2.9 cm) and posterior lower uterine segment subserosal fibroid (4.2 cm) Left ovarian corpus luteum or hemorrhagic cyst (1.7 cm) follow-up ultrasound in 6-12 weeks could be considered. Normal appearance of the endometrium. No significant free fluid. US Pelvic Transabdominal And Transvaginal With Color Flow [RH] 1318 CT images indicate gastritis. This is consistent with examination findings. Given prescription for Protonix with Zofran to take at home. Instructed to follow-up with primary care in the next 2 to 3 days. We discussed signs and symptoms of worsening condition and when to return. Verbalized understanding. Discharged in stable condition. [RH] ED Course User Index [RH] Mary Feng, PANCHO The patient has been informed that they may have pre-hypertension or hypertension based on a blood pressure reading in the Emergency Department. I recommend that the patient call the primary care provider listed on their discharge instructions or a physician of their choice as soon as possible to arrange follow-up in the next 4 weeks for further evaluation of possible pre-hypertension or hypertension. . Clinical Impression: 1. Acute gastritis, presence of bleeding unspecified, unspecified gastritis type Disposition: Patient is being discharge home. New Prescriptions pantoprazole (PROTONIX) 40 MG tablet Take 1 (one) tablet (40 mg total) by mouth daily for 14 days . ondansetron (Zofran ODT) 4 MG disintegrating tablet Dissolve 1 (one) tablet (4 mg total) on top of tongue every 8 (eight) hours as needed for nausea . Discontinued Medications Disp Refills Start End acetaminophen-codeine (Tylenol-Codeine #3) 300-30 mg per tablet 30 tablet 0 10/10/2019 12/03/2020 Si-2 tabs q4-6 hours prn pain . Class: Phone In Reason for Discontinue: Error Prior authorization: Closed - Prior Authorization not required for patient/medication celecoxib (CeleBREX) 100 MG capsule 30 capsule 2 06/18/2020 12/03/2020 Sig: Take 1 (one) capsule (100 mg total) by mouth daily . Route: Oral Reason for Discontinue: Error meloxicam (MOBIC) 15 MG tablet 5 12/29/2018 12/03/2020 Class: Historical Med Reason for Discontinue: Error Mary Feng CNP ED Advanced Practice Provider [facility] Emergency Department (Please note that portions of this note have been completed with a voice recognition software. Efforts were made to correct any errors, but occasionally words are mis-transcribed.) Mary Feng CNP 12/03/20 1321 PT PRESENTS TO ER WITH ABD PAIN X3 WEEKS THAT IS EPIGASTRIC. STATES THAT SHE HAS BEEN VOMITING SINCE SAT. STATES LBM WAS THURS. AND WAS BLACK WITH RED STREAKS. STATES TESTED FOR COVID AND NEGATIVE3 WEEKS AGO. Bed: 09 Expected date: Expected time: Means of arrival: Comments: next documented in this encounter Assessment & Plan Note - Katya Enriquez CNP - 03/23/2019 2:03 PM EDTRestricted Alcohol/Drug Screening - Mary Albright MSW LSW - 03/23/2019 2:01 PM EDT Miscellaneous Notes (unrecog nized section and content) Associated Problem(s): Bradycardia History of known bradycardia dating back to 2012. 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 Previous 30-day event monitor for palpitations in 2013 showed all transmissions to be sinus rhythm with the vast majority being sinus bradycardia rates upper 30s to low 40s. One auto transmission showed heart rate of 32 occurring nocturnally. Telemetry reviewed. Sinus bradycardia rates 40s to 50 without pauses noted. Restricted Alcohol/Drug Screening Date: 03/23/2019 Time: 2:01 PM This Note contains information protected by federal regulations (42 CFR Part 2) that require even greater restrictions than the rules for other medical records. The Part2 regulations even restrict how this information may be shared within [facility]. Accordingly, this information should NOT be viewed except by caregivers when needed for the limited purpose of diagnosing, treating or making a referral in relation to alcohol/drug abuse or by caregivers when needed to treat the patient in a medical emergency. The Part 2 regulations also have special rules regarding disclosure of this information. To ensure compliance with these rules, this Note should NOT be printed and released under any circumstance, unless released with valid authorization by the Health Information Management (HIM) Department. Patient Name: Devyn Naranjo Date of : 1980 Sex: Female Admit Date/Time: 03/22/2019 9:48 AM SCREENING TOOLS: AUDIT: AUDIT Screening Tool How often did you have a drink containing alcohol in the past year?: 2 to 4 times a month How many drinks containing alcohol do you have on a typical day when you are drinking?: 3 or 4 How often did you have five or more drinks on one occasion in the past year?: Less than monthly How often during the last year have you found that you were not able to stop drinking once you started?: Never How often during the last year have you failed to do what was expected of you because of drinking?: Never How often during the last year have you needed a first drink in the morning to get yourself going after a having drinking session?: Never How often during the last year have you had a feeling of guilt or remorse after drinking?: Never How often during the last year have you been unable to remember what happened the night before because of your drinking?: Never Have you or someone else been injured because of your drinking?: No Has a relative, friend, doctor, or other health care worker been concerned about your drinking or suggested you cut down?: No Audit Total Score: 4 AUDIT C: AUDIT C Screening Tool How often did you have a drink containing alcohol in the past year?: 2 to 3 times per week How many drinks containing alcohol do you have on a typical day when you are drinking?: 1 or 2 How often did you have six or more drinks on one occasion in the past year?: Less than monthly AUDIT-C Total Score: 4 CAGE: CAGE AID: ASSESSMENTS: Plan and Recommendations: Initial assessment completed with patient. Patient educated to social work role. Patient plans to return home with family support. Patient has PCP Dr. Garcia. Patient reports she only drinks one beer at a time on hot days and will have up to 4 drinks on occasion on weekends only. No further needs identified. Disposition/Comments: Patient denied needs for resources such as counseling or alcohol supportive groups at this time. Associated Problem(s): Syncope Syncopal episode occurring on Thursday in the setting of sitting in the sun and drinking 4 alcoholic beverages. Denied any associated chest pain, shortness of breath, palpitations, lightheadedness or dizziness. Alcohol level on arrival 24 hours later was 27.2 mg/dL. Troponin x3 have been negative. EKG showed sinus bradycardia rate [address] or T wave abnormalities. She denies any previous syncopal episodes. 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 Previous 30-day event monitor for palpitations in 2012 showed all transmissions to be sinus rhythm with the vast majority being sinus bradycardia rates upper 30s to low 40s. One auto transmission showed heart rate of 32 occurring nocturnally. Echocardiogram 03/22/2019 shows normal LV size and function, normal wall motion. LVEF greater than for 65%. Normal diastolic function. Normal RV size and function. No hemodynamically significant valvular disease. Telemetry reviewed, patient has been in sinus bradycardia rates 40s to 50s without significant pauses or ventricular arrhythmias. Electrolytes within normal limits. MRI of the brain showed no acute process. Associated Problem(s): Syncope Patient with syncopal episode and landed on the right face after coming out of her car. She mentioned the left arm and leg to be numb and has some paresthesias. She has no history of syncopal episode in the past. No witnessed tonic-clonic seizure. No tongue biting or incontinence. Patient with history of palpitation and had a Holter placed 6 years ago. The right face remains swollen and sore. Consider whether she was drunk and passed out. Her alcohol level was 27.2. It is also interesting that she was not taking immediately to the hospital. Decreased pinprick on the left forearm and leg compared to the right side. Right periorbital ecchymosis and edema. Brain MRI: 1. No acute intracranial process. No acute intracranial hemorrhage, mass, extraaxial fluid collection, or acute infarction. 2. Very mild scattered foci of white matter T2 hyperintensity are nonspecific although likely due to chronic microangiopathic change. Cervical MRI: 1. No acute fracture. 2. Spinal canal stenosis at C5-6 and C6-7 due to posterior disc osteophyte complexes that indent the ventral aspect of the spinal cord asymmetrically greater along the right ventral aspect without spinal cord signal abnormality. There is very mild spinal canal stenosis at C4-5. 3. Moderate neural foraminal stenosis occurring on the right at C4-5 and bilaterally right greater than left at C6-7. Suggestion: 1. Discontinue any alcohol use. 2. Therapy and fall precautions. 3. Keep well-hydrated and avoid sudden changes in position. 4. Outpatient neurosurgery evaluation for cervical stenosis. 5. Cardiovascular evaluation. 6. Outpatient EMG of both upper extremity. 7. We will review EEG. I have personally reviewed/visualized the patient's images, as documented above. I have personally reviewed the patient's labs, as listed above. Impression, plan and suggestions was discussed with the patient. Questions and concerns were discussed and addressed. Juan parsons: Portions of this chart was created using [employer] voice recognition software. Occasional wrong-word or sound-like substitutions may have occurred due to inherent limitations of the voice recognition software. Please read the chart carefully and recognize, using context, where the substitutions have occurred. POC Initiated Problem: Actual or potential alteration in health Goal: Absence of healthcare acquired conditions Outcome: Partially Met Goal: Knowledge of Interdisciplinary Plan of Care Outcome: Partially Met Goal: Knowledge of Enviroment Outcome: Partially Met documented in this encounter PREOPERATIVE DIAGNOSES 1.Status post right knee anterior cruciate ligament reconstruction. 2.Status post right knee surgeries x2. 3.Chondromalacia, right knee. 4.Symptomatic hardware, right knee. POSTOPERATIVE DIAGNOSES 1.Posterior horn medial meniscus tear. 2.Grade 3 and 4 chondromalacia, medial femoral condyle. 3.Grade 3 chondromalacia, tibial plateau. 4.Cyclops lesion. 5.Grade 3 chondromalacia, patella. 6.Medial compartment osteophytes. 7.Symptomatic hardware right knee. PROCEDURES 1.Right knee arthroscopy with partial medial meniscectomy. 2.Chondroplasty medial femoral condyle, tibial plateau. 3.Chondroplasty patella. 4.Abrasion resection, medial compartment osteophytes. 5.Synovectomy, cyclops lesion. 6.Screw removal, right knee. ANESTHESIA Local anesthetic with sedation no intraoperative. COMPLICATIONS None. SPECIMENS None. ESTIMATED BLOOD LOSS 5 cc. HISTORY Devyn is a 39-year-old patient who had a right knee surgery over 20 years ago. In fact, she has had 2 surgeries on each knee over 20 years ago. Unfortunately, over the course of the last couple of years she has had worsening pain and discomfort in the right knee. She has had significant pain referred to the medial joint line as well as mechanical crepitus in the right knee. X-rays have shown degenerative changes. At this time, she is looking forward to a surgical intervention. The screw is extremely prominent. It is extremely medial and anterior. I have never quite seen a screw this anterior and medial in my 25-year career. However, at this time, we are going to proceed forward with knee arthroscopy. She understands that at the young age of 39 that this most likely will not be her last knee surgery and will likely end up with a total knee replacement. PROCEDURE IN DETAIL Patient was met in the preop holding where the right knee was confirmed to be the appropriate site and marked by me. Patient was taken to the operative suite. She was given preoperative Kefzol per protocol, as well as peripheral sedation. Right leg was placed in a proximal thigh tourniquet. Right leg was then sterilely prepped and draped using ChloraPrep solution. After sterilization of the right leg, we did our final time-out to confirm that the right leg was in fact the appropriate site that had been marked by me. After our final time-out, we went ahead and proceeded forward with elevation of the right leg tourniquet. We went ahead and did systematic arthroscopy. Upon entering the right knee medial compartment, there was noted to be a significant amount of synovium, and like I said I have never in my 25-year career actually seen an anterior cruciate ligament placed this anteriorly, and the anterior cruciate ligament was direct anterior, and there was a significant cyclops lesion anterior to that causing significant anterior impingement. I debrided the cyclops lesion, tried to leave the ACL ligament intact. Went to the medial compartment. Unfortunately I encountered areas of grade 4 chondromalacia measuring about 4 x 6 mm and global grade 3 chondromalacia of the medial femoral condyle. A chondroplasty to stable rims was undertaken. There was a posterior horn medial meniscus tear in the far posterior medial aspect. At this time a partial medial meniscectomy was undertaken to stable rims. Tibial plateau had grade 3 chondromalacia. Chondroplasty was undertaken. At this time, once again at the ACL itself in this significant anterior and medial position, there was significant fraying of this anteriorly placed ACL. I went ahead and went to the lateral compartment. There was grade 2 chondromalacia of the femoral condyle, tibial plateau with no large, unstable flaps, some fraying of the lateral meniscus, but no significant unstable flaps. At this time, we went to the patellofemoral articulation. There was grade 3 chondromalacia of the medial and lateral facet of the patella, and it was stabilized. There were no loose bodies in the lateral compartment or suprapatellar fracture, but there was a very large osteophyte hanging off the medial femoral condyle measuring about 2 cm by 1 cm. At this time, with a bur I burred off the medial femoral condyle osteophyte back to yocha dehe medial condyle. At this time, I then went ahead and irrigated the knee, closed the arthroscopic portals with 4-0 black nylon suture. After the abrasion chondroplasty, the knee was irrigated and injected 20 cc of 0.5% Marcaine without epinephrine. Portals were closed with 4-0 black nylon suture. Using fluoroscopy assistance, I found the screw, made a small incision, identified the screw, and removed in its entirety. This screw was encroaching on the medial anterior joint surface, causing chondromalacia of the femoral condyle. After the screw removal, we went ahead and did irrigation, placed bone wax in the void from the screw, closed the screw removal site with 2-0 Vicryl 4-0 black nylon suture. Patient placed in sterile dressing, taken to PACU without intraoperative complication. D 10/07/2019 13:22 [id number] 10/07/2019 14:21 MCB/MODL Brief Post Operative Note Patient Name: Devyn Naranjo : 1980 (39 y.o.) Date of Service: 10/07/2019 CSN: [id number] Procedure(s): Right knee arthroscopy with screw removal, partial meniscectomy, abrasion chondroplasty Pre-Operative Diagnoses: * Primary osteoarthritis of right knee [M17.11] Primary osteoarthritis of left knee [M17.12] Post-Operative Diagnoses: * Same as Pre-Op Diagnosis * Primary osteoarthritis of right knee [M17.11] * Primary osteoarthritis of left knee [M17.12] Surgeon(s) and Role: * Melody Fuentes MD - Primary Anesthesiologist: Marek Barboza MD Anesthesiologist Medical Record Administrator: HELGA Mallory Scrub Person: Jessica Washburn RN Game Engineer Orientee: Debo Paredes RN Game Engineer Preceptor: Maddy Lopez RN Scrub Person Assist: Marce Whitney RN Operative findings: djd Intra and immediate post-operative complications: none Type of anesthesia used: Monitor Anesthesia Care Estimated blood loss: 5 mL Estimated urine output: 0 mL Specimen(s): * No specimens in log * Implant(s): Implant Name Type Inv. Item Serial No. Sports Writer Lot No. [id number] No. Used Action 1 screw Right 1 Explanted Drain(s): * No LDAs found * Wound(s): Wound 10/07/19 Surgical Wound Knee Right (Active) Drainage Amount None 10/07/2019 12:40 PM Dressing Status Clean;Dry;Intact 10/07/2019 12:40 PM Melody Fuentes MD 10/07/2019 1:[address] Fuentes of need for post op orders. States will put them in Shivering subsided at present, c/o pain right knee 04/04 Pt shivering, Demerol 12.5 mg given as ordered documented in this encounter ED Attestation: Comments: Patient is seen, examined, evaluated by me. She is a 40-year-old female who presents with a 3-week history of epigastric pain, nausea and vomiting. She denies any diarrhea or fever. She denies any other abdominal pain. She has had no chills and has not tested positive for Covid. On exam she is a well-developed and nourished white female no acute distress. Lungs are clear to auscultation without wheezes rhonchi or rales. Heart is regular rate and rhythm without murmurs rubs or gallops. Abdomen is soft with midepigastric tenderness but no rebound mass or guarding. Neurologic exam is grossly intact. Plan is imaging studies and lab testing as well as fluids and IV medications. I agree with the midlevel provider plan of care. PT TO U/S documented in this encounter Hemorrhoid banded x1 Biopsy forceps down scope. WATS biopsy performed. Sent off to [facility]. Report pending and will be labeled and scanned into media when received. See anesthesia record for all meds and vitals. Bite block used. Have you had your COVID testing? yes Have you followed all mask precautions since your COVID testing? yesno Have you had cough, fever, SOB? no Have you been in contact with anyone who has tested positive for COVID, has had cough, fever, or SOB? no Mask in place? Yes Please make sure the patient has registered before taking them to OPS or Med- Surg floor for their procedure. documented in this encounter Donna Wang RN - 01/01/2021 12:13 PM Donna Otto RN - 01/01/2021 12:08 PM Donna Otto RN - 01/01/2021 12:02 PM Donna Otto RN - 01/01/2021 11:57 AM EST Nursing Notes (unrecognized section and content) Pt discharged with all belongings paperwork Pt up to dress, denies dizziness or nausea Family at cartside Pt ride called Pt to edge of cart to dangle legs over side of cart, warm blanket draped over pts shoulders, pt still having snack Discharge instructions reviewed with pt, copies of AVS, instructions and hemorrhoid ligation instructions given to pt Pt having cecille franki and peanut butter crackers and tolerating well Pt turned to back, HOB 60 degrees, pt awake but drowsy, denies needs Dr Hale speaking to pt, regular diet per Dr Hale Pt to recovery bay 4, pt lying on left side, HOB 30 degrees, pt drowsy, no family present with pt documented in this encounter Care Teams (unrecognized sec tion and content) Cash Controller Relationship Specialty Start Date End Date Osmar Garcia MD PCP - General Internal Medicine 08/01/19 Cash Controller Relationship Specialty Start Date End Date Osmar Garcia MD PCP - General Internal Medicine 08/01/19 Cash Controller Relationship Specialty Start Date End Date Osmar Garcia MD PCP - General Internal Medicine 08/01/19 Cash Controller Relationship Specialty Start Date End Date Osmar Garcia MD PCP - General Internal Medicine 08/01/19 Cash Controller Relationship Specialty Start Date End Date Osmar Garcia MD [address] [address] PCP - General Internal Medicine 12/03/20 Cash Controller Relationship Specialty Start Date End Date Osmar Garcia MD PCP - General Internal Medicine 08/01/19 Cash Controller Relationship Specialty Start Date End Date Osmar Garcia MD PCP - General Internal Medicine 08/01/19 Cash Controller Relationship Specialty Start Date End Date Osmar Garcia MD PCP - General Internal Medicine 08/01/19 Cash Controller Relationship Specialty Start Date End Date Osmar Garcia MD [address] [address] PCP - General Internal Medicine 12/03/20 Cash Controller Relationship Specialty Start Date End Date Osmar Garcia MD PCP - General Internal Medicine 08/01/19 Cash Controller Relationship Specialty Start Date End Date Osmar Garcia MD [address] [address] PCP - General Internal Medicine 12/03/20 Team Status: Active Member Role Status Dates Dr. Nupur Garcia MD Primary Care Provider Active Team Status: Inactive Member Role Status Dates Dr. Nupur Garcia MD Primary Care Provider Active Sherice Juares NP-C Attending Provider, Referring Pr ovider Active Team Status: Active Member Role Status Dates Dr. Nupur Garcia MD Primary Care Pr ovider, Attending Provider, Referring Provider Active Team Status: Inactive Member Role Status Dates Dr. Nupur Garcia MD Primary Care Pr ovider, Attending Provider, Referring Provider Active Cash Controller Relationship Specialty Start Date End Date Nupur Garcia MD [address] [facility] [address] [place] [phone] PCP - General Family Medicine 02/17/23 Cash Controller Relationship Specialty Start Date End Date Nupur Garcia MD [address] [facility] [address] [place] [phone] PCP - General Family Medicine 02/17/23 Cash Controller Relationship Specialty Start Date End Date Nupur Garcia MD [address] [facility] [address] [place] [phone] PCP - General Family Medicine 02/17/23 Cash Controller Relationship Specialty Start Date End Date Osmar Garcia MD PCP - General Internal Medicine 08/01/19 Cash Controller Relationship Specialty Start Date End Date Nupur Garcia MD [address] [facility] [address] [place] [address] PCP - General Family Medicine 02/17/23 Cash Controller Relationship Specialty Start Date End Date Nupur Garcia MD [address] [facility] [address] [place] [address] PCP - General Family Medicine 02/17/23 Cash Controller Relationship Specialty Start Date End Date Nupur Garcia MD [address] [facility] [address] [place] [address] PCP - General Family Medicine 02/17/23 Cash Controller Relationship Specialty Start Date End Date Nupur Garcia MD [address] [facility] [address] [place] [address] PCP - General Family Medicine 02/17/23 Cash Controller Relationship Specialty Start Date End Date Osmar Garcia MD PCP - General Internal Medicine 08/01/19 Team Status: Inactive Member Role Status Dates Dr. Nupur Garcia MD Primary Care Provider, Attend ing Provider Active Team Status: Inactive Member Role Status Dates Dr. Nupur Garcia MD Primary Care Provider Active Dr. Nelly Gimenez DO Emergency Provider Active Team Status: Inactive Member Role Status Dates Dr. Nupur Garcia MD Primary Care Provider Active Dr. Nelly Gimenez DO Attending Provider, Emergency Pro vider Active Team Status: Inactive Member Role Status Dates Dr. Nupur Garcia MD Primary Care Provider Active Dr. Can Kimble MD Emergency Provider Active Team Status: Inactive Member Role Status Dates Dr. Nupur Garcia MD Primary Care Provider, Referr ing Provider Active Dr. Riana Madden DC Attending Provider Active Team Status: Inactive Member Role Status Dates Dr. Nupur Garcia MD Primary Care Provider Active Dr. Riana Madden DC Attending Provider Active Team Status: Inactive Member Role Status Dates Dr. Nupur Garcia MD Primary Care Provider Active Dr. Can Kimble MD Attending Provider, Emergency Provi kandy Active Team Status: Inactive Member Role Status Dates Dr. Nupur Garcia MD Primary Care Provider Active Dr. Donn Mackey DO Emergency Provider Active Cash Controller Relationship Specialty Start Date End Date Nupur Garcia MD [address] [place] [address] [address] [place] [address] PCP - General Endocrinology/Metabolism 11/12/23 Cash Controller Relationship Specialty Start Date End Date Nupur Garcia MD [address] [place] [address] [address] [place] [address] PCP - General Endocrinology/Metabolism 11/12/23 Cash Controller Relationship Specialty Start Date End Date Nupur Garcia MD [address] [place] [address] [address] [place], [place] [phone] PCP - General Endocrinology/Metabolism 11/12/23 Cash Controller Relationship Specialty Start Date End Date Nupur Garcia MD [address] [place] [address] [address] [place] [address] PCP - General Endocrinology/Metabolism 11/12/23 Cash Controller Relationship Specialty Start Date End Date Nupur Garcia MD [address] [place] [address] [address] [place], [place] [id number] PCP - General Endocrinology/Metabolism 11/12/23 Cash Controller Relationship Specialty Start Date End Date Nupur Garcia MD [address] [place] [address] [address] [place] [address] PCP - General Endocrinology/Metabolism 11/12/23 Cash Controller Relationship Specialty Start Date End Date Nupur Garcia MD [address] [place] [address] [address] [place] [address] PCP - General Endocrinology/Metabolism 11/12/23 Cash Controller Relationship Specialty Start Date End Date Nupur Garcia MD [address] [place] [address] [address] [place] [address] PCP - General Endocrinology/Metabolism 11/12/23 Cash Controller Relationship Specialty Start Date End Date Nupur Garcia MD [address] [place] [address] [address] [place] [address] PCP - General Endocrinology/Metabolism 11/12/23 Cash Controller Relationship Specialty Start Date End Date Nupur Garcia MD [address] [place] [address] [address] [place] [address] PCP - General Endocrinology/Metabolism 11/12/23 Cash Controller Relationship Specialty Start Date End Date Nupur Garcia MD [address] [place] [address] [address] [place] [address] PCP - General Endocrinology/Metabolism 11/12/23 Cash Controller Relationship Specialty Start Date End Date Nupur Garcia MD [address] [place] [address] [address] [place] [address] PCP - General Endocrinology/Metabolism 11/12/23 Cash Controller Relationship Specialty Start Date End Date Nupur Garcia MD [address] [place] [address] [address] [place] [address] PCP - General Endocrinology/Metabolism 11/12/23 Cash Controller Relationship Specialty Start Date End Date Nupur Garcia MD [address] [place] [address] PCP - General Endocrinology/Metabolism 11/12/23 Cash Controller Relationship Specialty Start Date End Date Nupur Garcia MD [address] [address] PCP - General Endocrinology/Metabolism 11/12/23 Team Status: Active Member Role/Relationship Status Dates Dr. Nupur Garcia MD Primary care physician Active Team Status: Inactive Member Role/Relationship Status Dates Dr. Nupur Garcia MD Referring Provider Active Start: July 13, 2025 End: July 13, 2025 Dr. Rob Segovia DO Attending physician Active Start: July 13, 2025 End: July 13, 2025 Team Status: Active Member Role/Relationship Status Dates Dr. Nupur Garcia MD Primary care physician Active Start: July 13, 2025 Dr. Rob Segovia DO Attending physician Active Start: July 13, 2025 Dr. Rob Segovia DO Referring Provider Active Start: July 13, 2025 Goals (unrecognized section and content) Goals may be documented in a n alternate sectionGoals may be documented in an alternate sectionGoals may be documented in an alternate sectionGoals may be documented in an alternate sectionGoals may be documented in an alternate sectionGoals may be documented in an alternate sectionGoals may be documented in an alternate sectionGoals may be documented in an alternate sectionGoals may be documented in an alternate sectionGoals may be documented in an alternate sectionGoals may be documented in an alternate section Scheduled Active and Recently Administ ered Medications (unrecognized section and content) Medication Order 03/25/2023 03/26/2023 03/27/2023 sodium chloride 0.9% (NS) flush 10 mL 10 mL, IntraVENous, Every 12 hours scheduled (2 times per day), First dose on Thu03/27/23 at 2100, Preprocedure PRN Medication Order 03/25/2023 03/26/2023 03/27/2023 sodium chloride 0.9 % infusion 5-250 mL/hr, IntraVENous, PRN, if patient receiving piggyback infusions and maintenance fluids are not ordered OR KVO fluids to protect IV site / prevent frequent line interruptions/ long duration, Starting on Thu03/27/23 at 1213, Preprocedure, For piggyback infusion, administer at same rate as piggyback for a total of 25 mL. Enter 25 mL into dose field and piggyback rate into rate field of order. If piggyback is infusing at a rate less than 100 mL/hr, enter 25 mL into dose field and 100 mL/hr into rate field of order. For KVO fluids, enter rate of 20 mL/hr or less into rate field of order. 1231 (New Bag - Prov ider: Marjorie Vale RN)1347 (Continued by Anesthesia - Provider: Martin Tavares CRNA)1408 (Anesthesia Volume Adjustment - Provider: Martin Tavares CRNA) sodium chloride 0.9% (NS) flush 10 mL 10 mL, IntraVENous, PRN, line care, Starting on Thu03/27/23 at 1213, Preprocedure, After every IV line use FOR RECORDS PERTAINING TO PATIENTS WHO ARE OR HAVE BEEN ENROLLED IN A CHEMICAL DEPENDENCY/SUBSTANCEABUSE PROGRAM, SOME INFORMATION MAY BE OMITTED. This clinical summary was aggregated from multiple sources. Caution should be exercised in using it in the provision of clinical care. This summary normalizes information from multiple sources, and as a consequence, information in this document may materially change the coding, format and clinical context of patient data. In addition, data may be omitted in some cases. CLINICAL DECISIONS SHOULD BE BASED ON THE PRIMARY CLINICAL RECORDS. [facility]. provides no warranty or guarantee of the accuracy or completeness of information in this document.
--- OUTSIDE RECORDS SUMMARY | 2025-07-19 06:58 | XMS RPT_ITS | CCD ---
Author Organization [facility] CliniSymo Care Team Providers Care Manager Program Management Name Role Phone Cristine Andrew Unavailable Unavailable Cristine Andrew Unavailable Unavailable Bg Fan Unavailable Unavailable Bg Fan Unavailable Unavailable Quiana Warren Primary Care Provider [phone] SHELTON WEESK Attending Unavail able QUIANA WARREN Primary Care [...] Provider Dr. Antolin Morales Attending Provider Jose SCHUSTER, Nupur Paul Primary Care Provider Osmar Garcia MD [facility] Provide r Jose SCHUSTER, Nupur Paul Primary [...] Referring Provider Dr. Riana Madden Attending Provider 1([facility])[phone] Nupur Garcia Primary Care [...] Jose SCHUSTER, Dr. Nupur Paul Referring Provider Friend Dr. Rob GONZALEZ Attending Physician [phone] Dr. Nupur Garcia MD Primary Care Physician [...] take 1 capsule by mouth once daily [facility] Fatty Acids (Fish Oil) 1000 MG capsule [...] . 0 Active omega-3 acid ethyl esters (detention) 1000 mg oral capsule (1 source) take 1 capsule by mouth once daily at dinner [facility] 1000 MG Cap Take 1 capsule by mouth Daily (with dinner). 0 Active [facility] Fatty Acids (13 sources) Start: 07-07-2022 take 1000 mg by mouth once daily [facility] Fatty Acids Active 1000 MG PO DAILY July 06, 2022 11:00pm Start: 07-07-2022 take 1000 mg by mouth once jinny ly [facility] Fatty Acids Active 1000 MG PO DAILY [...] PROTONIX) injection 40 mg polyethylene glycol 3350 20198 mg powder for oral solution (2 sources) [...] take 1 tablet by mouth once daily Lisinopril-Lacona chlorothiazide 20-12.5 mg tablet Discontinued 0 .ROUTE [...] mouth daily . 0 Active lactobacillus acidophilus [id number] unt oral capsule (14 sources) Start: 07-07-2022 End: 07-09-2022 take 10 capsules by mouth once daily Lactobacillus Acidophilus (Probiotic) 10 billion cell capsule Discontinued 98101 NMA PO DAILY July 07, 2022 12:00am [...] 15, 2023 1:00am July 13, 2025 1:50pm [facility] Fatty Acids 1,000 mg capsule (1 source) Start: 07-07-2022 End: 07-13-2025 take 1 capsule by mouth once daily [facility] Fatty Acids 1,000 mg capsule Discontinued 1000 [...] ELIZABETH Comprehensive Panelon ELIZABETH TABLE TNP Normal [facility] Comment on above: Performed By: #### L 501.2400, L101.9900, L501.6710, L3100.5440, L501.2450 #### [facility] [address] [place], [address] Amylaseon 07-13-2025 KIT 49 U/L Normal 28-100 [facility] Comment on above: Performed By: #### L 501.2400, L101.9900, L501.6710, L3100.5440, L501.2450 ####[facility] [address] [place], [address] CRPon 07-13-2025 C-REACTIVE PROT < 3.00 Normal 0.0-3.0 [facility] Comment on above: Performed By: #### L 501.2400, L101.9900, L501.6710, L3100.5440, L501.2450 ####[facility] [address] [place], [address] Erythrocyte Sed Rateon 07-13 SED RATE 1 mm/hr Normal 0-30 [facility] Comment on above: Performed By: #### L 501.2400, L101.9900, L501.6710, L3100.5440, L501.2450 #### [facility] [address] [place], [address] Erythrocyte sedimentation ra teOrdered By: Rob Segovia on 07-13-2025 ESR (Bld) [Velocity] 1 mm/h 0-30 [facility] Gastroenterology Visit Repor ton 07-13-2025 Gastroenterology Visit Report [facility] [address] [place] [address] OFFICE VISIT Date of Service: 07/13/25 MR#: [id number] Acct: [id number] Name: DEVYN CORONA Rep #: [id number] : 1980 Provider: Rob Segovia DO Age/Sex: 45/F Location: [facility] Status: Signed Intake Vital Signs 03/28/24 13:24 [...] concerns at this time. Capsule consent signed. [facility] Medical History [place] (dyspnea on exertion) Fatigue [...] to the office today for initial consult. *[facility] established 07.13.25 pt reports she began [...] high-fat, dairy). Alleviating Factors:???no significant relief from pvif-qbt-qnjbjca medications. Passing gas or a bowel movement [...] Vomiting blo (more content not included)... Normal [facility] Lipaseon 07-13-2025 Lipase [Catalytic activity/Vol] 41 U/L Normal 13-75 [facility] Comment on above: Result Comment: Daphnie law note: LIPASE revised reference range effective 23. New Lipase methodology. Expected to produce lower values than the previous assay method. NEW Reference Range: 13 - 75 U/L Performed By: #### L 501.2400, L101.9900, L501.6710, L3100.5440, L501.2450 ####[facility] [address] [place], [address] Lipase measurementOrdered By : Rob Segovia on 07-13-2025 Lipase [Catalytic activity/Vol] 41 U/L 13-75 [facility] Comment on above: Please note:LIPASE r evised reference range effective 23. New Lipase methodology. Expected to produce lower values than the previous assay method. NEW Reference Range: 13 - 75 U/L Serum Scl-70 antibody assay (units/volume)Ordered By: Rob Segovia on 07-13-2025 SCL-70 extractable nuclear Ab Qn (S) TNP [facility] Comment on above: Test not performed Serum or plasma C reactive p rotein measurement (mass/volume)Ordered By: Rob Segovia on 07-13-2025 CRP [Mass/Vol] mg/L 0.0-3.0 [facility] Serum or plasma amylase santa urement (enzymatic activity/volume)Ordered By: Rob Segovia on 07-13-2025 Amylase [Catalytic activity/Vol] 49 U/L 28-100 [facility] L3410.9999on 11-18-2024 [facility] Misc. COMMENT Normal . [facility] Comment on above: Order Comment: CLEAN CATCH Result Comment: Test Ordered: [id number] Cystatin C Cystatin C 0.59 [L ] mg/L Reference Range: 0.60-1.00 Performed at: - [facility] [address] [id number] Wired Sweatband Cutter: Taiwo Fan PhD, Phone: [phone] Performed By: #### L 400.0001 #### [facility] [address] [place], [place], [address] [id number] 11-17-2024 ABO and Rh group Nom (Bld) Blood group O Rh(D) positive Normal [facility] Comment on above: Performed By: #### L 400.0001, L501.0100, L501.2300, L3410.9999, L501.9985, L502.0500, L501.1105, L500.4100, B882-1 ####[facility] [address] [place], [place], [address] Glucoseon 11-17-2024 Glucose [Mass/Vol] 85 mg/dL Normal 74-106 [facility] Comment on above: Performed By: #### L 400.0001, L501.0100, L501.2300, L3410.9999, L501.9985, L502.0500, L501.1105, L500.4100, B882-1 ####[facility] [address] [place], [place], [address] Hemoglobin A1con 11-17-2024 HbA1c (Bld) [Mass fraction] 5.2 % Normal 3.8-5.6 [facility] Comment on above: Result Comment: Norm al < 5.7 % Prediabetic 5.7 - 6.4 % Diabetic >or= 6.5 % Please note range changes. Performed By: #### L 400.0001, L501.0100, L501.2300, L3410.9999, L501.9985, L502.0500, L501.1105, L500.4100, B882-1 ####[facility] [address] [place], [address] Lipid Profileon 11-17-2024 Cholesterol [Mass/Vol] 171 mg/dL Normal 200 [facility] Comment on above: Result Comment: <200 mg/dL Desirable 200-240 mg/dL Borderline >240 mg/dL High Risk Performed By: #### L 400.0001, L501.0100, L501.2300, L3410.9999, L501.9985, L502.0500, L501.1105, L500.4100, B882-1 ####[facility] [address] [place], [address] Cholesterol in HDL [Mass/Vol] 78 mg/dL Normal [facility] Comment on above: Result Comment: The drugs N-Acetylcysteine and Metamizole may falsely depress this assay. Reference Range HDL <40 mg/dL Low HDL Cholesterol HDL >or= 60 mg/dL High HDL Cholesterol Performed By: #### L 400.0001, L501.0100, L501.2300, L3410.9999, L501.9985, L502.0500, L501.1105, L500.4100, B882-1 ####[facility] [address] [place], [address] Cholesterol in LDL [Mass/Vol] 84 mg/dL Normal 0-130 [facility] Comment on above: Performed By: #### L 400.0001, L501.0100, L501.2300, L3410.9999, L501.9985, L502.0500, L501.1105, L500.4100, B882-1 ####[facility] [address] [place], [address] Cholesterol in VLDL [Mass/Vol] 9 mg/dL Normal 5-40 [facility] Comment on above: Performed By: #### L 400.0001, L501.0100, L501.2300, L3410.9999, L501.9985, L502.0500, L501.1105, L500.4100, B882-1 ####[facility] [address] [place], [address] Triglyceride [Mass/Vol] 43 mg/dL Normal [facility] Comment on above: Result Comment: The drugs N-Acetylcysteine and Metamizole may falsely depress this assay. Serum Triglycerides Reference Interval Normal <150 mg/dL Borderline high 150 - 199 mg/dL High 200 - 499 mg/dL Very High > or = 500 mg/dL Performed By: #### L 400.0001, L501.0100, L501.2300, L3410.9999, L501.9985, L502.0500, L501.1105, L500.4100, B882-1 ####[facility] [address] [place], [address] Microalbumin,Random Urineon 11-17-2024 MICROALBUMIN,UR 13.4 mg/L Normal NO RANGE EST. [facility] Comment on above: Performed By: #### L 400.0001 #### [facility] [address] [place], [address] Phosphoruson 11-17-2024 Phosphate [Mass/Vol] 3.1 mg/dL Normal 2.5-4.9 [facility] Comment on above: Performed By: #### L 400.0001, L501.0100, L501.2300, L3410.9999, L501.9985, L502.0500, L501.1105, L500.4100, B882-1 ####[facility] [address] [place], [place], [address] Serum Creatinine AND GFRon 0 11-17-2024 Creatinine [Mass/Vol] 0.72 mg/dL Normal 0.55-1.02 [facility] Comment on above: Result Comment: The validity of the calculated GFR GFRAA in patients over 70 years has not been determined. Clinical correlation is essential. Performed By: #### L 400.0001, L501.0100, L501.2300, L3410.9999, L501.9985, L502.0500, L501.1105, L500.4100, B882-1 ####[facility] [address] [place], [address] EST GFR - AA 113 mL/min Normal >60 [facility] Comment on above: Result Comment: Afri can Citizen [place] GFR Calc Performed By: #### L 400.0001, L501.0100, L501.2300, L3410.9999, L501.9985, L502.0500, L501.1105, L500.4100, B882-1 ####[facility] [address] [place], [address] GFR/1.73 sq M.predicted among non-blacks MDRD (S/P/Bld) [Vol rate/Area] 94 mL/min/{1.73_m2} Normal >60 [facility] Comment on above: Result Comment: Non- GFR Calc Performed By: #### L 400.0001, L501.0100, L501.2300, L3410.9999, L501.9985, L502.0500, L501.1105, L500.4100, B882-1 ####[facility] [address] [place], [place], [address] Urinalysis, Completeon 11-17 BACTERIA 0 SEEN Normal None Seen [facility] Comment on above: Order Comment: CLEAN CATCH Performed By: #### L 400.0001, L501.0100, L501.2300, L3410.9999, L501.9985, L502.0500, L501.1105, L500.4100, B882-1 ####[facility] [address] [place], [address] EPI,SQUAMOUS 0 SEEN Normal 5-10 [facility] Comment on above: Order Comment: CLEAN CATCH Performed By: #### L 400.0001, L501.0100, L501.2300, L3410.9999, L501.9985, L502.0500, L501.1105, L500.4100, B882-1 ####[facility] [address] [place], [address] Mucus Ql (Urine sed) 0 SEEN Normal [facility] Comment on above: Order Comment: CLEAN CATCH Performed By: #### L 400.0001, L501.0100, L501.2300, L3410.9999, L501.9985, L502.0500, L501.1105, L500.4100, B882-1 ####[facility] [address] [place], [address] RBC 0 SEEN Normal 0-5 [facility] Comment on above: Order Comment: CLEAN CATCH Performed By: #### L 400.0001, L501.0100, L501.2300, L3410.9999, L501.9985, L502.0500, L501.1105, L500.4100, B882-1 ####[facility] [address] [place], [address] WBC 0 SEEN Normal 0-5 [facility] Comment on above: Order Comment: CLEAN CATCH Performed By: #### L 400.0001, L501.0100, L501.2300, L3410.9999, L501.9985, L502.0500, L501.1105, L500.4100, B882-1 ####[facility] [address] [place], [address] Chiropractic Reporton 2023 Chiropractic Report [facility] [address] [place] [address] OFFICE VISIT Date of Service: 10/17/24 MR#: [id number] Acct: [id number] Name: DEVYN CORONA Rep #: [id number] : 1980 Provider: LALO Lobo Age/Sex: 44/F Location: [facility] Status: Signed Intake Vital Signs 03/28/24 13:24 [...] and somatic (more content not included)... Normal [facility] Breast Limited Unilateralon 08-16-2024 Breast Limited Unilateral [facility] Imaging Services [address] [place] [id number] Breast Limited Unilateral MR#: [id number] Acct: [id number] Name: DEVYN CORONA Rep #: [id number] : 1980 F 44 From: Cas murillo MD PCP: Dr. Nupur Garcia MD Status: REG CLI Study: Breast Limited Unilateral Date of Exam: Exam# [id number] Ordering Dr: Nupur Garcia MD [id number] STUDY: ULTRASOUND BREAST - LEFT REASON FOR [...] 12:17 EDT Reading Location ID and State: [facility] / [place] , Service support , CC: Dr. Nupur Garcia MD Embedded Systems Engineer: Signed Normal [facility] SCRN MAMM (CAD)W/MORALES BILATo n 08-11-2024 SCRN MAMM (CAD)W/MORALES BILAT [facility] Imaging Services [address] [place] [id number] SCRN MAMM (CAD)W/MORALES BILAT MR#: [id number] Acct: [id number] Name: DEVYN CORONA Rep #: [id number] : 1980 F 44 From: Cas murillo MD PCP: Dr. Nupur Garcia MD Status: REG [facility] Study: SCRN MAMM (CAD)W/MORALES BILAT Date of Exam: 07/26 05/18 Exam# [id number] Ordering Dr: Nupur Garcia MD [id number] MAMMOGRAPHY - BILATERAL SCREENING REASON FOR EXAM: [...] delay biopsy of a clinically suspicious abnormality. [id number] Electronically Signed: Cas Estrada MD at 8:35 EDT , CC: Dr. Nupur Garcia MD Embedded Systems Engineer: Signed Normal [facility] CBC W/Diff, Automatedon 07-26 Absolute Lymph 2.20 X10 3/uL Normal 0.83-4.51 [facility] Comment on above: Order Comment: Order Date: 07/27/24 Order Info: 0184-1 - CBCD Performed By: #### L 501.9520, L500.4100, L100.0100, L501.5200, L500.4050 #### [facility] [address] [place], [address] Absolute Neut 3.6 X10 3/uL Normal 2.0-7.7 [facility] Comment on above: Order Comment: Order Date: 07/27/24 Order Info: 0184-1 - CBCD Performed By: #### L 501.9520, L500.4100, L100.0100, L501.5200, L500.4050 #### [facility] [address] [place], [address] Basophils/100 WBC (Bld) 0.5 % Normal 0-1 [facility] Comment on above: Order Comment: Order Date: 07/27/24 Order Info: 0184-1 - CBCD Performed By: #### L 501.9520, L500.4100, L100.0100, L501.5200, L500.4050 #### [facility] [address] [place], [address] Eosinophils/100 WBC (Bld) 2.1 % Normal 0-5 [facility] Comment on above: Order Comment: Order Date: 07/27/24 Order Info: 0184-1 - CBCD Performed By: #### L 501.9520, L500.4100, L100.0100, L501.5200, L500.4050 #### [facility] [address] [place], [address] Erythrocyte distribution width (RBC) [Ratio] 11.9 % Normal 11.6-14.6 [facility] Comment on above: Order Comment: Order Date: 07/27/24 Order Info: 0184-1 - CBCD Performed By: #### L 501.9520, L500.4100, L100.0100, L501.5200, L500.4050 #### [facility] [address] [place], [address] Hematocrit (Bld) [Volume fraction] 39.0 % Normal 37-47 [facility] Comment on above: Order Comment: Order Date: 07/27/24 Order Info: 0184-1 - CBCD Performed By: #### L 501.9520, L500.4100, L100.0100, L501.5200, L500.4050 #### [facility] [address] [place], [address] Hemoglobin (Bld) [Mass/Vol] 13.2 g/dL Normal 12.0-15.0 [facility] Comment on above: Order Comment: Order Date: 07/27/24 Order Info: 0184-1 - CBCD Performed By: #### L 501.9520, L500.4100, L100.0100, L501.5200, L500.4050 #### [facility] [address] [place], [address] IG% 0.200 Normal 0.0-0.9 [facility] Comment on above: Order Comment: Order Date: 07/27/24 Order Info: 0184-1 - CBCD Result Comment: IG% - Immature Granulocytes (promyelocytes, myelocytes and metamyelocytes) > 1% indicates that a LEFT SHIFT is Present. Performed By: #### L 501.9520, L500.4100, L100.0100, L501.5200, L500.4050 #### [facility] [address] [place], [address] Lymphocytes/100 WBC (Bld) 34.7 % Normal 19-41 [facility] Comment on above: Order Comment: Order Date: 07/27/24 Order Info: 0184-1 - CBCD Performed By: #### L 501.9520, L500.4100, L100.0100, L501.5200, L500.4050 #### [facility] [address] [place], [address] MCH (RBC) [Entitic mass] 28.7 pg Normal 27.0-32.0 [facility] Comment on above: Order Comment: Order Date: 07/27/24 Order Info: 018- - CBCD Performed By: #### L 501.9520, L500.4100, L100.0100, L501.5200, L500.4050 #### [facility] [address] [place], [address] MCHC (RBC) [Mass/Vol] 33.8 g/dL Normal 32-36 [facility] Comment on above: Order Comment: Order Date: 07/27/24 Order Info: 018- - CBCD Performed By: #### L 501.9520, L500.4100, L100.0100, L501.5200, L500.4050 #### [facility] [address] [place], [address] MCV (RBC) [Entitic vol] 84.8 fL Normal 81-99 [facility] Comment on above: Order Comment: Order Date: 07/27/24 Order Info: 0184- - CBCD Performed By: #### L 501.9520, L500.4100, L100.0100, L501.5200, L500.4050 #### [facility] [address] [place], [address] Monocytes/100 WBC (Bld) 5.8 % Normal 0-10 [facility] Comment on above: Order Comment: Order Date: 07/27/24 Order Info: 0184- - CBCD Performed By: #### L 501.9520, L500.4100, L100.0100, L501.5200, L500.4050 #### [facility] [address] [place], [address] Neutrophils/100 WBC (Bld) 56.7 % Normal 47-70 [facility] Comment on above: Order Comment: Order Date: 07/27/24 Order Info: 0184-1 - CBCD Performed By: #### L 501.9520, L500.4100, L100.0100, L501.5200, L500.4050 #### [facility] [address] [place], [address] Nucleated RBC (Bld) [#/Vol] 0 10*3/uL Normal 0-5 [facility] Comment on above: Order Comment: Order Date: 07/27/24 Order Info: 0184-1 - CBCD Performed By: #### L 501.9520, L500.4100, L100.0100, L501.5200, L500.4050 #### [facility] [address] [place], [address] Platelet mean volume (Bld) [Entitic vol] 10.4 fL Normal 6.2-12.0 [facility] Comment on above: Order Comment: Order Date: 07/27/24 Order Info: 0184-1 - CBCD Performed By: #### L 501.9520, L500.4100, L100.0100, L501.5200, L500.4050 #### [facility] [address] [place], [address] Platelets (Bld) [#/Vol] 240 10*3/uL Normal 150-450 [facility] Comment on above: Order Comment: Order Date: 07/27/24 Order Info: 0184-1 - CBCD Performed By: #### L 501.9520, L500.4100, L100.0100, L501.5200, L500.4050 #### [facility] [address] [place], [address] RBC (Bld) [#/Vol] 4.60 10*6/uL Normal 4.2-5.4 [facility] Comment on above: Order Comment: Order Date: 07/27/24 Order Info: 0184-1 - CBCD Performed By: #### L 501.9520, L500.4100, L100.0100, L501.5200, L500.4050 #### [facility] [address] [place], [address] RDW SD 36.6 fl Normal 35.1-43.9 [facility] Comment on above: Order Comment: Order Date: 07/27/24 Order Info: 0184-1 - CBCD Performed By: #### L 501.9520, L500.4100, L100.0100, L501.5200, L500.4050 #### [facility] [address] [place], [address] WBC (Bld) [#/Vol] 6.3 10*3/uL Normal 4.4-11.0 [facility] Comment on above: Order Comment: Order Date: 07/27/24 Order Info: 0184-1 - CBCD Performed By: #### L 501.9520, L500.4100, L100.0100, L501.5200, L500.4050 #### [facility] [address] [place], [address] Comprehensive Metabolic Prof hion 08-06-2024 Albumin [Mass/Vol] 3.7 g/dL Normal 3.2-5.0 [facility] Comment on above: Order Comment: Order Date: 07/27/24 Order Info: 0786-1 - CMP Order Info: 13417-2 - LIPID Order Info: [id number] - MG Order Info: 3016-3 - TSH Performed By: #### L 501.9520, L500.4100, L100.0100, L501.5200, L500.4050 #### [facility] [address] [place], [address] Albumin/Globulin [Mass ratio] 1.1 {ratio} Normal 0.9-2.4 [facility] Comment on above: Order Comment: Order Date: 07/27/24 Order Info: 86-1 - CMP Order Info: [id number] - LIPID Order Info: [id number] - MG Order Info: 3015-3 - TSH Performed By: #### L 501.9520, L500.4100, L100.0100, L501.5200, L500.4050 #### [facility] [address] [place], [address] ALK P 44 U/L Low 45-117 [facility] Comment on above: Order Comment: Order Date: 07/27/24 Order Info: 785-1 - CMP Order Info: - LIPID Order Info: [id number] - MG Order Info: 3 - TSH Performed By: #### L 501.9520, L500.4100, L100.0100, L501.5200, L500.4050 #### [facility] [address] [place], [address] ALT [Catalytic activity/Vol] 19 U/L Normal 13-56 [facility] Comment on above: Order Comment: Order Date: 07/27/24 Order Info: 86-1 - CMP Order Info: [id number] - LIPID Order Info: [id number] - MG Order Info: 3 - TSH Performed By: #### L 501.9520, L500.4100, L100.0100, L501.5200, L500.4050 #### [facility] [address] [place], [address] AST [Catalytic activity/Vol] 17 U/L Normal 15-37 [facility] Comment on above: Order Comment: Order Date: 07/27/24 Order Info: [id number] - CMP Order Info: [id number] - LIPID Order Info: [id number] - MG Order Info: 3015-3 - TSH Performed By: #### L 501.9520, L500.4100, L100.0100, L501.5200, L500.4050 #### [facility] [address] [place], [address] Bilirubin [Mass/Vol] 0.60 mg/dL Normal 0.20-1.00 [facility] Comment on above: Order Comment: Order Date: 07/27/24 Order Info: 0786-1 - CMP Order Info: [id number] - LIPID Order Info: [id number] - MG Order Info: 3016-3 - TSH Result Comment: For patients on eltrombopag therapy, use of Dimension [place] TBIL is not recommended. Performed By: #### L 501.9520, L500.4100, L100.0100, L501.5200, L500.4050 #### [facility] [address] [place], [address] BUN/CRE 17.3 RATIO Normal 10-20 [facility] Comment on above: Order Comment: Order Date: 07/27/24 Order Info: 0786-1 - CMP Order Info: [id number] - LIPID Order Info: [id number] - MG Order Info: 3016-3 - TSH Performed By: #### L 501.9520, L500.4100, L100.0100, L501.5200, L500.4050 #### [facility] [address] [place], [address] CA,Total 9.0 mg/dL Normal 8.5-10.1 [facility] Comment on above: Order Comment: Order Date: 07/27/24 Order Info: 0786-1 - CMP Order Info: [id number] - LIPID Order Info: [id number] - MG Order Info: 3016-3 - TSH Performed By: #### L 501.9520, L500.4100, L100.0100, L501.5200, L500.4050 #### [facility] [address] [place], [address] Chloride [Moles/Vol] 108 mmol/L High 98-107 [facility] Comment on above: Order Comment: Order Date: 07/27/24 Order Info: 86-1 - CMP Order Info: [id number] - LIPID Order Info: [id number] - MG Order Info: 3 - TSH Performed By: #### L 501.9520, L500.4100, L100.0100, L501.5200, L500.4050 #### [facility] [address] [place], [address] CO2 [Moles/Vol] 24.0 mmol/L Normal 21.0-32.0 [facility] Comment on above: Order Comment: Order Date: 07/27/24 Order Info: 785-1 - CMP Order Info: [id number] - LIPID Order Info: [id number] - MG Order Info: 3 - TSH Performed By: #### L 501.9520, L500.4100, L100.0100, L501.5200, L500.4050 #### [facility] [address] [place], [address] Creatinine [Mass/Vol] 0.70 mg/dL Normal 0.55-1.02 [facility] Comment on above: Order Comment: Order Date: 07/27/24 Order Info: 785-1 - CMP Order Info: [id number] - LIPID Order Info: [id number] - MG Order Info: 3 - TSH Result Comment: The validity of the calculated GFR GFRAA in patients over 70 years has not been determined. Clinical correlation is essential. Performed By: #### L 501.9520, L500.4100, L100.0100, L501.5200, L500.4050 #### [facility] [address] [place], [address] EST GFR - AA 119 mL/min Normal >60 [facility] Comment on above: Order Comment: Order Date: 07/27/24 Order Info: [id number] - CMP Order Info: [id number] - LIPID Order Info: [id number] - MG Order Info: 301-3 - TSH Result Comment: Afri can Citizen Of [place] GFR Calc Performed By: #### L 501.9520, L500.4100, L100.0100, L501.5200, L500.4050 #### [facility] [address] [place], [address] GAP 6 Normal 5-15 [facility] Comment on above: Order Comment: Order Date: 07/27/24 Order Info: 785-1 - CMP Order Info: [id number] - LIPID Order Info: [id number] - MG Order Info: 3015-3 - TSH Performed By: #### L 501.9520, L500.4100, L100.0100, L501.5200, L500.4050 #### [facility] [address] [place], [address] GFR/1.73 sq M.predicted among non-blacks MDRD (S/P/Bld) [Vol rate/Area] 98 mL/min/{1.73_m2} Normal >60 [facility] Comment on above: Order Comment: Order Date: 07/27/24 Order Info: 785- - CMP Order Info: [id number] - LIPID Order Info: [id number] - MG Order Info: 3015-3 - TSH Result Comment: Non- GFR Calc Performed By: #### L 501.9520, L500.4100, L100.0100, L501.5200, L500.4050 #### [facility] [address] [place], [address] Globulin (S) [Mass/Vol] 3.3 g/dL Normal 2.2-4.2 [facility] Comment on above: Order Comment: Order Date: 07/27/24 Order Info: 785-1 - CMP Order Info: [id number] - LIPID Order Info: [id number] - MG Order Info: 3016-3 - TSH Performed By: #### L 501.9520, L500.4100, L100.0100, L501.5200, L500.4050 #### [facility] [address] [place], [address] Glucose [Mass/Vol] 90 mg/dL Normal 74-106 [facility] Comment on above: Order Comment: Order Date: 07/27/24 Order Info: [id number] - CMP Order Info: [id number] - LIPID Order Info: [id number] - MG Order Info: 3016-3 - TSH Performed By: #### L 501.9520, L500.4100, L100.0100, L501.5200, L500.4050 #### [facility] [address] [place], [address] Potassium [Moles/Vol] 4.0 mmol/L Normal 3.5-5.1 [facility] Comment on above: Order Comment: Order Date: 07/27/24 Order Info: 07-1 - CMP Order Info: [id number] - LIPID Order Info: [id number] - MG Order Info: 3016-3 - TSH Performed By: #### L 501.9520, L500.4100, L100.0100, L501.5200, L500.4050 #### [facility] [address] [place], [address] Sodium [Moles/Vol] 138 mmol/L Normal 136-145 [facility] Comment on above: Order Comment: Order Date: 07/27/24 Order Info: 07-1 - CMP Order Info: [id number] - LIPID Order Info: [id number] - MG Order Info: 3016-3 - TSH Performed By: #### L 501.9520, L500.4100, L100.0100, L501.5200, L500.4050 #### [facility] [address] [place], [address] T PROT 7.0 g/dL Normal 6.4-8.2 [facility] Comment on above: Order Comment: Order Date: 07/27/24 Order Info: [id number] - CMP Order Info: [id number] - LIPID Order Info: [id number] - MG Order Info: 3016-3 - TSH Performed By: #### L 501.9520, L500.4100, L100.0100, L501.5200, L500.4050 #### [facility] [address] [place], [address] Urea nitrogen [Mass/Vol] 12 mg/dL Normal 7-18 [facility] Comment on above: Order Comment: Order Date: 07/27/24 Order Info: [id number] - CMP Order Info: [id number] - LIPID Order Info: [id number] - MG Order Info: 301-3 - TSH Performed By: #### L 501.9520, L500.4100, L100.0100, L501.5200, L500.4050 #### [facility] [address] [place], [address] Lipid Profileon 08-06-2024 Cholesterol [Mass/Vol] 149 mg/dL Normal 200 [facility] Comment on above: Order Comment: Order Date: 07/27/24 Order Info: 07- - CMP Order Info: [id number] - LIPID Order Info: [id number] - MG Order Info: 3015-3 - TSH Result Comment: <200 mg/dL Desirable 200-240 mg/dL Borderline >240 mg/dL High Risk Performed By: #### L 501.9520, L500.4100, L100.0100, L501.5200, L500.4050 #### [facility] [address] [place], [address] Cholesterol in HDL [Mass/Vol] 77 mg/dL Normal [facility] Comment on above: Order Comment: Order Date: 07/27/24 Order Info: [id number] - CMP Order Info: [id number] - LIPID Order Info: [id number] - MG Order Info: [id number] - TSH Result Comment: The drugs N-Acetylcysteine and Metamizole may falsely depress this assay. Reference Range HDL <40 mg/dL Low HDL Cholesterol HDL >or= 60 mg/dL High HDL Cholesterol Performed By: #### L 501.9520, L500.4100, L100.0100, L501.5200, L500.4050 #### [facility] [address] [place], [address] Cholesterol in LDL [Mass/Vol] 62 mg/dL Normal 0-130 [facility] Comment on above: Order Comment: Order Date: 07/27/24 Order Info: [id number] - CMP Order Info: [id number] - LIPID Order Info: [id number] - MG Order Info: 3016-3 - TSH Performed By: #### L 501.9520, L500.4100, L100.0100, L501.5200, L500.4050 #### [facility] [address] [place], [address] Cholesterol in VLDL [Mass/Vol] 10 mg/dL Normal 5-40 [facility] Comment on above: Order Comment: Order Date: 07/27/24 Order Info: 0786 - CMP Order Info: [id number] - LIPID Order Info: [id number] - MG Order Info: 3016-3 - TSH Performed By: #### L 501.9520, L500.4100, L100.0100, L501.5200, L500.4050 #### [facility] [address] [place], [address] Triglyceride [Mass/Vol] 49 mg/dL Normal [facility] Comment on above: Order Comment: Order Date: 07/27/24 Order Info: [id number]- - CMP Order Info: [id number] - LIPID Order Info: [id number] - MG Order Info: [id number] - TSH Result Comment: The drugs N-Acetylcysteine and Metamizole may falsely depress this assay. Serum Triglycerides Reference Interval Normal <150 mg/dL Borderline high 150 - 199 mg/dL High 200 - 499 mg/dL Very High > or = 500 mg/dL Performed By: #### L 501.9520, L500.4100, L100.0100, L501.5200, L500.4050 #### [facility] [address] [place], [address] Magnesiumon 08-06-2024 Magnesium [Mass/Vol] 1.7 mg/dL Normal 1.6-2.6 [facility] Comment on above: Order Comment: Order Date: 07/27/24 Order Info: [id number] - CMP Order Info: [id number] - LIPID Order Info: [id number] - MG Order Info: 3016-3 - TSH Performed By: #### L 501.9520, L500.4100, L100.0100, L501.5200, L500.4050 #### [facility] [address] [place], [address] Thyroid Stim Hormone (TSH)on 08-06-2024 TSH 1.950 uIU/mL Normal 0.358-3.74 0 [facility] Comment on above: Order Comment: Order Date: 07/27/24 Order Info: 86 - CMP Order Info: [id number] - LIPID Order Info: [id number] - MG Order Info: [id number] - TSH Performed By: #### L 501.9520, L500.4100, L100.0100, L501.5200, L500.4050 #### [facility] [address] [place], [address] Urinalysis, Completeon 08-06 EPI,SQUAMOUS 5-10 SEEN Normal 5-10 [facility] Comment on above: Order Comment: CLEAN CATCH Performed By: #### L 400.0001 #### [facility] [address] [place], [address] BACTERIA 0 SEEN Normal None Seen [facility] Comment on above: Order Comment: CLEAN CATCH Performed By: #### L 400.0001 #### [facility] [address] [place], [address] Mucus Ql (Urine sed) 0 SEEN Normal [facility] Comment on above: Order Comment: CLEAN CATCH Performed By: #### L 400.0001 #### [facility] [address] [place], [address] RBC 0 SEEN Normal 0-5 [facility] Comment on above: Order Comment: CLEAN CATCH Performed By: #### L 400.0001 #### [facility] [address] [place], [address] WBC 0 SEEN Normal 0-5 [facility] Comment on above: Order Comment: CLEAN CATCH Performed By: #### L 400.0001 #### [facility] [address] [place], [address] XR KNEE RIGHT 3 VIEWS (SPECI FY [...] ThuFeb 12, 2024 7:41:23 PM EDT Normal [facility] Comment on above: Order Comment: [...] fracture or hardware loosening. Joint effusion present.. [place] in place anteriorly. IMPRESSION: Intact knee replacement. [employer] Workstation ID: [id number] Dictated by: TOBY ORTEGA on ThuJan 11, 2024 11:19:55 AM EDT Transcribed by: KYLAH GE on ThuJan 11, 2024 12:01:48 PM EDT Finalized by: TOBY ORTEGA on ThuJan 11, 2024 11:01:55 PM EDT Normal [facility] Comment on above: Order Comment: [...] ThuDec 28, 2023 12:20:26 PM EST Normal [facility] Comment on above: Order Comment: Injur y/Trauma or Illness?:Illness/Other How long have you had these symptoms (acute/chronic)?:Chronic Reason for exam?:S/P Rt. TKA in OR History of cancer?:Unknown Surgeries, chemotherapy, or radiation?:Unknown Type of Exam?:Initial Additional signs and symptoms?:. Basic metabolic 2000 panelon 12-10-2023 Anion gap [Moles/Vol] 8 mmol/L Low 10 - 2 0 mmol/L [facility] Calcium [Mass/Vol] 9.2 mg/dL 8.4 - 10. 2 mg/dL [facility] Chloride [Moles/Vol] 104 mmol/L 98 - 10 8 mmol/L [facility] Creatinine [Mass/Vol] 0.80 mg/dL 0.40 - 1.10 mg/dL [facility] GFR/1.73 sq M.predicted CKD-EPI (S/P/Bld) [Vol rate/Area] 95 - PINF [facility] Comment on above: Estimated GFR was ca lculated using the 2020 CKD-EPI creatinine equation. Glucose [Mass/Vol] 71 mg/dL 65 - 99 mg/dL [facility] HCO3 [Moles/Vol] 30 mmol/L 21 - 32 mmol/L [facility] Interpretation and review of laboratory results Abnormal [facility] Potassium [Moles/Vol] 3.9 mmol/L 3.5 - 5.1 mmol/L [facility] Sodium [Moles/Vol] 138 mmol/L 135 - 145 mmol/L [facility] Urea nitrogen [Mass/Vol] 14 mg/dL 8 - 25 mg/dL [facility] Urea nitrogen/Creatinine [Mass ratio] 17.5 mg/mg 10.0 - 20.0 [facility] has implemented the eGFR calculation approach that does not have a coefficient for race that conforms to the NKF-ASN Task Force Recommendations. [facility] CBC Auto Differentialon 11-26 Basophils (Bld) [#/Vol] 0.03 10*3/uL [facility] Basophils/100 WBC (Bld) 0.6 % [facility] Eosinophils (Bld) [#/Vol] 0.07 10*3/uL [facility] Eosinophils/100 WBC (Bld) 1.4 % [facility] Erythrocyte distribution width (RBC) [Entitic vol] 12.1 % 11.6 - 14.8 % [facility] Hematocrit (Bld) [Volume fraction] 42.3 % 36.0 - 46.0 % [facility] Hemoglobin (Bld) [Mass/Vol] 14.0 g/dL 12.0 - 16.0 g/dL [facility] Immature granulocytes (Bld) [#/Vol] 0.02 10*3/uL [facility] Immature granulocytes/100 WBC (Bld) 0.40 % [facility] Comment on above: The IG parameter is the percentage of metamyelocytes, myelocytes and promyelocytes. An immature granulocyte count (IG) of 1% or more suggests the possibility of infection, an IG count of 3% is very likely related to an infection. Lymphocytes (Bld) [#/Vol] 1.73 10*3/uL [facility] Lymphocytes/100 WBC (Bld) 33.9 % [facility] MCH (RBC) [Entitic mass] 29.4 pg 26.0 - 34.0 pg [facility] MCHC (RBC) [Mass/Vol] 33.1 g/dL 31.0 - 37.0 g/dL [facility] MCV (RBC) [Entitic vol] 88.9 fL 80.0 - 100.0 fL [facility] Monocytes (Bld) [#/Vol] 0.38 10*3/uL [facility] Monocytes/100 WBC (Bld) 7.4 % [facility] Neutrophils (Bld) [#/Vol] 2.88 10*3/uL [facility] Neutrophils/100 WBC (Bld) 56.3 % [facility] Nucleated RBC (Bld) [#/Vol] 0.00 10*3/uL [facility] Nucleated RBC/100 WBC (Bld) [Ratio] 0.0 % [facility] Platelet mean volume (Bld) [Entitic vol] 10.4 fL 9.4 - 12.4 fL [facility] Platelets (Bld) [#/Vol] 293 10*3/uL [facility] RBC (Bld) [#/Vol] 4.76 10*6/uL [facility] WBC (Bld) [#/Vol] 5.11 10*3/uL [facility] CT KNEE RIGHT WITHOUT CONTRA STon [...] right hip, knee and ankle without contrast. [facility] protocol. Dose reduction techniques were achieved by [...] ThuDec 10, 2023 4:44:44 PM EST Normal [facility] Comment on above: Order Comment: Kelly paul only schedule at [facility]. Do not schedule Ct scan appointment with [...] R52 Pain IMPRESSION: FINDINGS/ Prior ACL repair. 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 [employer] Workstation ID: [id number] Dictated by: KATELYN CONRAD on ThuNov 12, 2023 9:12:25 AM EST Transcribed by: JULIANN SANDHU on ThuNov 12, 2023 9:38:36 AM EST Finalized by: KATELYN CONRAD on ThuNov 12, 2023 12:11:51 PM EST Normal [facility] Comment on above: Order Comment: Injur y/Trauma or Illness?:Illness/Other How long have you had these symptoms (acute/chronic)?:Chronic Reason for exam?:chronic right knee pain affecting walking History of cancer?:Unknown Surgeries, chemotherapy, or radiation?:Unknown Type of Exam?:Subsequent/Follow-up Additional signs and symptoms?:none Absolute lymphocyte countOrd ered By: Nupur Garcia on 08-06-2023 Lymphocytes Auto (Unsp spec) [#/Vol] 2.40 10*3/uL 0.83-4.51 [facility] Basophil percentageOrdered B y: Nupur Garcia on 08-06-2023 Basophil percentage 0 SEEN /hpf 0-5 [facility] Basophils/100 WBC (Bld) 0.4 % 0-1 [facility] Bilirubin [Mass/Vol] 0.40 mg/dL 0.20-1.00 [facility] Comment on above: For patients on eltr ombopag therapy, use of Dimension [place] TBIL is not recommended. Chloride [Moles/Vol] 101 mmol/L 98-107 [facility] Cholesterol [Mass/Vol] 199 mg/dL <200 [facility] Comment on above: <200 mg/dL Desirable 200-240 mg/dL Borderline >240 mg/dL High Risk Eosinophils/100 WBC (Bld) 1.0 % 0-5 [facility] Glucose [Mass/Vol] 90 mg/dL 74-106 [facility] Neutrophils (Bld) [#/Vol] 3.9 10*3/uL 2.0-7.7 [facility] Neutrophils/100 WBC (Bld) 58.0 % 47-70 [facility] Potassium [Moles/Vol] 3.7 mmol/L 3.5-5.1 [facility] Protein [Mass/Vol] 7.6 g/dL 6.4-8.2 [facility] Sodium [Moles/Vol] 135 mmol/L 136-145 [facility] Triglyceride [Mass/Vol] 61 mg/dL <199 [facility] Comment on above: The drugs N-Acetylcy steine and Metamizole may falsely depress this assay.Serum Triglycerides Reference Interval Normal <150 mg/dL Borderline high 150 - 199 mg/dL High 200 - 499 mg/dL Very High > or = 500 mg/dL WBC (Bld) [#/Vol] 6.7 10*3/uL 4.4-11.0 [facility] Bilirubin Test strip Ql (U)O rdered By: Nupur Garcia on 08-06-2023 Bilirubin Ql (U) Negative Negative [facility] Blood erythrocytes count (nu mber/volume)Ordered By: Nupur Garcia on 08-06-2023 RBC (Bld) [#/Vol] 4.71 10*6/uL 4.2-5.4 [facility] Blood hemoglobin measurement (mass/volume)Ordered By: Nupur Garcia on 08-06-2023 Hemoglobin (Bld) [Mass/Vol] 14.1 g/dL 12.0-15.0 [facility] Blood lymphocytes/100 leukoc ytesOrdered By: Nupur Garcia on 08-06-2023 Lymphocytes/100 WBC (Bld) 36.0 % 19-41 [facility] Blood monocytes/100 leukocyt esOrdered By: Nupur Garcia on 08-06-2023 Monocytes/100 WBC (Bld) 4.5 % 0-10 [facility] Blood platelet mean volumeOr dered By: Nupur Garcia on 08-06-2023 Platelet mean volume (Bld) [Entitic vol] 10.1 fL 6.2-12.0 [facility] Determination of erythrocyte mean corpuscular volume (MCV)Ordered By: Nupur Garcia on 08-06-2023 MCV (RBC) [Entitic vol] 88.5 fL 81-99 [facility] Hematocrit Auto (Bld) [Volum e fraction]Ordered By: Nupur Garcia on 08-06-2023 Hematocrit (Bld) [Volume fraction] 41.7 % 37-47 [facility] Ketones Test strip Ql (U)Ord ered By: Nupur Garcia on 08-06-2023 Ketones Ql (U) Negative Negative [facility] - Chemistry and C hemistry - challengeOrdered By: Nupur Garcia on 08-06-2023 ALP [Catalytic activity/Vol] 56 U/L 45-117 [facility] ALT [Catalytic activity/Vol] 32 U/L 13-56 [facility] CO2 [Moles/Vol] 30.0 mmol/L 21.0-32.0 [facility] Globulin (S) [Mass/Vol] 3.6 g/dL 2.2-4.2 [facility] Urea nitrogen/Creatinine [Mass ratio] 20.0 mg/mg 10-20 [facility] - Hematology and Cell countsOrdered By: Nupur Garcia on 08-06-2023 Erythrocyte distribution width (RBC) [Entitic vol] 38.2 fL 35.1-43.9 [facility] Erythrocyte distribution width (RBC) [Ratio] 11.9 % 11.6-14.6 [facility] Immature granulocytes/100 WBC (Bld) 0.100 % 0.0-0.9 [facility] Comment on above: IG% - Immature Granu locytes (promyelocytes, myelocytes and metamyelocytes) > 1% indicates that a LEFT SHIFT is Present. MCH (RBC) [Entitic mass] 29.9 pg 27.0-32.0 [facility] Nucleated RBC/100 WBC (Bld) [Ratio] 0 % 0-5 [facility] MCHC Auto (RBC) [Mass/Vol]Or dered By: Nupur Garcia on 08-06-2023 MCHC (RBC) [Mass/Vol] 33.8 g/dL 32-36 [facility] Mucus LM Ql (Urine sed)Order ed By: Nupur Garcia on 08-06-2023 Mucus Ql (Urine sed) 0 SEEN /hpf [facility] Nitrite Test strip Ql (U)Ord ered By: Nupur Garcia on 08-06-2023 Nitrite Ql (U) Negative Negative [facility] No Panel InformationOrdered By: Nupur Garcia on 08-06-2023 Estimated GFR (MDRD) Amer 78 mL/min >60 [facility] Comment on above: GFR Calc Estimated GFR (MDRD) Non-Af Amer 65 mL/min >60 [facility] Comment on above: Non- GFR Calc Thyroid Stimulating Hormone (TSH) 1.39 uIU/mL 0.358-3.74 [facility] Platelets bldOrdered By: Altaf Garcia on 08-06-2023 Platelets (Bld) [#/Vol] 303 10*3/uL 150-450 [facility] Protein Test strip Ql (U)Ord ered By: Nupur Garcia on 08-06-2023 Protein Ql (U) Negative Negative [facility] Serum or plasma albumin santa urement (mass/volume)Ordered By: Nupur Garcia on 08-06-2023 Albumin [Mass/Vol] 4.0 g/dL 3.2-5.0 [facility] Serum or plasma albumin/glob ulin mass ratioOrdered By: Nupur Garcia on 08-06-2023 Albumin/Globulin [Mass ratio] 1.1 {ratio} 0.9-2.4 [facility] Serum or plasma calcium santa urement (mass/volume)Ordered By: Nupur Garcia on 08-06-2023 Calcium [Mass/Vol] 9.0 mg/dL 8.5-10.1 [facility] Serum or plasma cholesterol in HDL measurement (mass/volume)Ordered By: Nupur Garcia on 08-06-2023 Cholesterol in HDL [Mass/Vol] 77 mg/dL >40 [facility] Comment on above: The drugs N-Acetylcy steine and Metamizole may falsely depress this assay. Reference Range HDL <40 mg/dL Low HDL Cholesterol HDL >or= 60 mg/dL High HDL Cholesterol Serum or plasma cholesterol in VLDL measurement (mass/volume)Ordered By: Nupur Garcia on 08-06-2023 Cholesterol in VLDL [Mass/Vol] 12 mg/dL 5-40 [facility] Serum or plasma creatinine m easurement (mass/volume)Ordered By: Nupur Garcia on 08-06-2023 Creatinine [Mass/Vol] 1.00 mg/dL 0.55-1.02 [facility] Comment on above: The validity of the calculated GFR & GFRAA in patients over 70 years has not been determined. Clinical correlation is essential. Serum or plasma low density lipoprotein (LDL) cholesterol measurement (mass/volume)Ordered By: Nupur Garcia on 08-06-2023 Cholesterol in LDL [Mass/Vol] 110 mg/dL 0-130 [facility] Serum or plasma urea nitroge n measurement (mass/volume)Ordered By: Nupur Garcia on 08-06-2023 Urea nitrogen [Mass/Vol] 20 mg/dL 7-18 [facility] Squamous epithelial cells de tection in urine sediment by light microscopyOrdered By: Nupur Garcia on 08-06-2023 Epithelial cells.squamous LM Ql (Urine sed) 0 SEEN /hpf 5-10 [facility] Thin prep Papanicolaou smear with manual screeningOrdered By: Nupur Garcia on 08-06-2023 Thin prep Papanicolaou smear with manual screening 20 U/L 15-37 [facility] Thin prep Papanicolaou smear with manual screening 4 5-15 [facility] Urine blood detectionOrdered By: Nupur Garcia on 08-06-2023 RBC Ql (U) Negative Negative [facility] RBC Ql (U) 0 SEEN /hpf 0-5 [facility] Urine clarityOrdered By: Altaf Garcia on 08-06-2023 Clarity (U) Clear Clear [facility] Urine color determinationOrd ered By: Nupur Garcia on 08-06-2023 Color (U) Yellow Yellow [facility] Urine glucose detectionOrder ed By: Nupur Garcia on 08-06-2023 Glucose Ql (U) Normal mg/dl Normal [facility] Urine leukocyte esterase det ection by dipstickOrdered By: Nupur Garcia on 08-06-2023 Leukocyte esterase Test strip Ql (U) Negative Negative [facility] Urine pHOrdered By: Nupur caceres on 08-06-2023 pH (U) 6.5 [pH] 5.0 - 8.0 [facility] Urine sediment bacteria coun t by microscopy (number/high power field)Ordered By: Nupur Garcia on 08-06-2023 Bacteria LM.HPF (Urine sed) [#/Area] 0 /[HPF] None Seen [facility] Urine specific gravity measu rementOrdered By: Nupur Garcia on 08-06-2023 Specific gravity (U) [Rel density] 1.010 1.002-1.03 0 [facility] Urobilinogen Auto test strip Ql (U)Ordered By: Nupur Garcia on 08-06-2023 Urobilinogen Ql (U) Normal mg/dl Normal [facility] Absolute lymphocyte countOrd ered By: Can Kimble on 07-28-2023 Lymphocytes Auto (Unsp spec) [#/Vol] 0.81 10*3/uL 0.83-4.51 [facility] Basophil percentageOrdered B y: Can Kimble on 07-28-2023 Basophils/100 WBC (Bld) 0.3 % 0-1 [facility] Chloride [Moles/Vol] 102 mmol/L 98-107 [facility] Eosinophils/100 WBC (Bld) 1.9 % 0-5 [facility] Glucose [Mass/Vol] 97 mg/dL 74-106 [facility] Neutrophils (Bld) [#/Vol] 4.3 10*3/uL 2.0-7.7 [facility] Neutrophils/100 WBC (Bld) 75.7 % 47-70 [facility] Potassium [Moles/Vol] 3.4 mmol/L 3.5-5.1 [facility] Sodium [Moles/Vol] 135 mmol/L 136-145 [facility] WBC (Bld) [#/Vol] 5.7 10*3/uL 4.4-11.0 [facility] Basophil percentage 0 SEEN /hpf 0-5 [facility] Bilirubin Test strip Ql (U)O rdered By: Can Kimble on 07-28-2023 Bilirubin Ql (U) Negative Negative [facility] [facility] Blood erythrocytes count (nu mber/volume)Ordered By: Can Kimble on 07-28-2023 RBC (Bld) [#/Vol] 4.57 10*6/uL 4.2-5.4 [facility] Blood hemoglobin measurement (mass/volume)Ordered By: Can Kimble on 07-28-2023 Hemoglobin (Bld) [Mass/Vol] 13.5 g/dL 12.0-15.0 [facility] Blood lymphocytes/100 leukoc ytesOrdered By: Can Kimble on 07-28-2023 Lymphocytes/100 WBC (Bld) 14.1 % 19-41 [facility] Blood monocytes/100 leukocyt esOrdered By: Canjose maria Kimble on 07-28-2023 Monocytes/100 WBC (Bld) 7.8 % 0-10 [facility] Blood platelet mean volumeOr dered By: Can Kimble on 07-28-2023 Platelet mean volume (Bld) [Entitic vol] 9.5 fL 6.2-12.0 [facility] Determination of erythrocyte mean corpuscular volume (MCV)Ordered By: Can Kimble on 07-28-2023 MCV (RBC) [Entitic vol] 88.8 fL 81-99 [facility] Hematocrit Auto (Bld) [Volum e fraction]Ordered By: Can Kimble on 07-28-2023 Hematocrit (Bld) [Volume fraction] 40.6 % 37-47 [facility] Ketones Test strip Ql (U)Ord ered By: Can Kimble on 07-28-2023 Ketones Ql (U) Negative Negative [facility] Laboratory - Chemistry and C hemistry - challengeOrdered By: Can Kimble on 07-28-2023 CO2 [Moles/Vol] 30.0 mmol/L 21.0-32.0 [facility] Urea nitrogen/Creatinine [Mass ratio] 17.6 mg/mg 10-20 [facility] Laboratory - Hematology and Cell countsOrdered By: Can Kimble on 07-28-2023 Erythrocyte distribution width (RBC) [Entitic vol] 40.2 fL 35.1-43.9 [facility] Erythrocyte distribution width (RBC) [Ratio] 12.3 % 11.6-14.6 [facility] Immature granulocytes/100 WBC (Bld) 0.200 % 0.0-0.9 [facility] Comment on above: IG% - Immature Granu locytes (promyelocytes, myelocytes and metamyelocytes) > 1% indicates that a LEFT SHIFT is Present. MCH (RBC) [Entitic mass] 29.5 pg 27.0-32.0 [facility] Nucleated RBC/100 WBC (Bld) [Ratio] 0 % 0-5 [facility] MCHC Auto (RBC) [Mass/Vol]Or dered By: Can Kimble on 07-28-2023 MCHC (RBC) [Mass/Vol] 33.3 g/dL 32-36 [facility] Mucus LM Ql (Urine sed)Order ed By: Can Kimble on 07-28-2023 Mucus Ql (Urine sed) 0 SEEN /hpf [facility] Nitrite Test strip Ql (U)Ord ered By: Can Kimble on 07-28-2023 Nitrite Ql (U) Negative Negative [facility] No Panel InformationOrdered By: Can Kimble on 07-28-2023 Estimated Creatinine Clearance Calc 73.21 ml/min [facility] Estimated GFR (MDRD) Amer 88 mL/min >60 [facility] Comment on above: GFR Calc Estimated GFR (MDRD) Non-Af Amer 72 mL/min >60 [facility] Comment on above: Non- GFR Calc Platelets bldOrdered By: Can Kimble on 07-28-2023 Platelets (Bld) [#/Vol] 222 10*3/uL 150-450 [facility] Protein Test strip Ql (U)Ord ered By: Can Kimble on 07-28-2023 Protein Ql (U) Negative Negative [facility] Serum or plasma calcium santa urement (mass/volume)Ordered By: Can Kimble on 07-28-2023 Calcium [Mass/Vol] 8.5 mg/dL 8.5-10.1 [facility] Serum or plasma creatinine m easurement (mass/volume)Ordered By: Can Kimble on 07-28-2023 Creatinine [Mass/Vol] 0.91 mg/dL 0.55-1.02 [facility] Comment on above: The validity of the calculated GFR & GFRAA in patients over 70 years has not been determined. Clinical correlation is essential. Serum or plasma urea nitroge n measurement (mass/volume)Ordered By: Can Kimble on 07-28-2023 Urea nitrogen [Mass/Vol] 16 mg/dL 7-18 [facility] Squamous epithelial cells de tection in urine sediment by light microscopyOrdered By: Can Kimble on 07-28-2023 Epithelial cells.squamous LM Ql (Urine sed) 0 SEEN /hpf 5-10 [facility] Thin prep Papanicolaou smear with manual screeningOrdered By: Can Kimble on 07-28-2023 Thin prep Papanicolaou smear with manual screening 3 5-15 [facility] Urine blood detectionOrdered By: Can Kimble on 07-28-2023 RBC Ql (U) Negative Negative [facility] RBC Ql (U) 0 SEEN /hpf 0-5 [facility] Urine clarityOrdered By: Can Kimble on 07-28-2023 Clarity (U) Clear Clear [facility] Urine color determinationOrd ered By: Can Kimble on 07-28-2023 Color (U) Yellow Yellow [facility] Urine glucose detectionOrder ed By: Can Kimble on 07-28-2023 Glucose Ql (U) Normal mg/dl Normal [facility] Urine leukocyte esterase det ection by dipstickOrdered By: Can Kimble on 07-28-2023 Leukocyte esterase Test strip Ql (U) Negative Negative [facility] Urine pHOrdered By: Can moise on 07-28-2023 pH (U) 7.0 [pH] 5.0 - 8.0 [facility] Urine sediment bacteria coun t by microscopy (number/high power field)Ordered By: Can Kimble on 07-28-2023 Bacteria LM.HPF (Urine sed) [#/Area] 0 /[HPF] None Seen [facility] Urine specific gravity measu rementOrdered By: Can Kimble on 07-28-2023 Specific gravity (U) [Rel density] 1.010 1.002-1.03 0 [facility] Urobilinogen Auto test strip Ql (U)Ordered By: Can Kimble on 07-28-2023 Urobilinogen Ql (U) Normal mg/dl Normal [facility] Chocolate RASTOrdered By: Cathy Garcia on 05-22-2023 Chocolate IgE Qn (S) <0.10 kU/L Class 0 [facility] Comment on above: Performed at: [address] [id number] Director: Jluis Srivastava MD, Phone: [phone] Laboratory - Miscellaneous t estsOrdered By: Nupur Garcia on 05-22-2023 Service comment (Unsp spec) [Interp] Comment . [facility] Comment on above: Levels of Specific I [...] on 05-22-2023 Anti-Gliadin IgA Antibody See comment [facility] Comment on above: TEST RESULTS LIMITSC eliac [...] SITE INFORMATION. Anti-Gliadin IgG Antibody Not Reportable [facility] [employer] Allergens (RAST) Negative . [facility] Comment on above: Allergens in this mi x are: Blue mussel Fish Bixby Shrimp Tuna Tissue Transglutaminase IgG Ab Not Reportable [facility] Serum IgA measurement (units /volume)Ordered By: Nupur Garcia on 05-22-2023 IgA Qn (S) TNP [facility] Comment on above: Test not performedQN S to run testing Serum beef IgE antibody assa y (units/volume)Ordered By: Nupur Garcia on 05-22-2023 Beef IgE Qn (S) <0.10 kU/L Class 0 [facility] Serum corn IgE antibody assa y (units/volume)Ordered By: Nupur Garcia on 05-22-2023 [place] IgE Qn (S) <0.10 kU/L Class 0 [facility] Serum cow milk IgE antibody assay (units/volume)Ordered By: Nupur Garcia on 05-22-2023 Cow milk IgE Qn (S) <0.10 kU/L Class 0 [facility] Serum peanut IgE antibody as say (units/volume)Ordered By: Nupur Garcia on 05-22-2023 Peanut IgE Qn (S) <0.10 kU/L Class 0 [facility] Serum pork IgE antibody assa y (units/volume)Ordered By: Nupur Garcia on 05-22-2023 Pork IgE Qn (S) <0.10 kU/L Class 0 [facility] Serum soybean IgE antibody a ssay (units/volume)Ordered By: Nupur Garcia on 05-22-2023 Soybean IgE Qn (S) <0.10 kU/L Class 0 [facility] Serum tissue transglutaminas e IgA antibody assay (units/volume)Ordered By: Nupur Garcia on 05-22-2023 tTG IgA Qn (S) Not Reportable [facility] Serum wheat IgE antibody ass ay (units/volume)Ordered By: Nupur Garcia on 05-22-2023 Wheat IgE Qn (S) <0.10 kU/L Class 0 [facility] Serum whole egg IgE antibody assay (units/volume)Ordered By: Nupur Garcia on 05-22-2023 Whole Egg IgE Qn (S) <0.10 kU/L Class 0 [facility] LG Jt Injection/Arthrocentes is: R kneeon 05-21-2023 Tammy Silva CNP 05/21/2023 9:24 PM LG Jt Injection/Arthrocentesis: R knee Performed by: Tammy Sivla CNP Authorized by: Tammy Silva CNP CPT 73485 - Large Joint Arthrocentesis: Consent given by: [...] the procedure well with no immediate complications [facility] 36on 04-15-2023 36 Spoke to patient and relayed results of CT - unremarkable. She states that she is better, but still having gut issues. States that Dr. Phoenix referred her to a functional medicine provider, and she will work with them to continue evaluation. Otherwise, no questions/concerns at this time. F/u PRN. Normal [facility] CT ABDOMEN PELVIS W CONTRAST on 04-13-2023 CT ABDOMEN PELVIS W CONTRAST Patient Name: DEVYN CORONA : 1980 Located Within [facility]#: [id number] Exam Date/Time: 04/10/2023 09:13 Procedure: CT ABDOMEN [...] Electronically Signed Date/Time: 04/13/2023 8:01 AM EDT [facility] 3604-06-2023 36 Spoke to pt to give time, date, location, and prep for her upcoming CT. Also informed pt that she would need to have lab work dome before her CT. Pt states understanding and said that got a text from [employer] informing her that she had to get lab work and has a appt scheduled for tomorrow 04/07/23. [facility] Office Visiton 04-02-2023 Follow-up visit [id number] ErwinfloridasundeepColbykathleen vizcaino 1980 F Date Provider Department Center 04/02/2023 [id number] [facility] ALS None Family History Problem Relation Age of Onset Bradycardia Mother Lung cancer Father Alcohol abuse Father Other Father Family Status - Relation Status Age at Mother Alive Father Level of Service:15000 [place] OFFICE/OUTPATIENT ESTABLISHED MOD MDM 30-39 MIN Reason for Visit and Comments: Follow-up [705844] - ALS FOLLOW UP DISCUSS TEST RESULTS UGI, HIDA, EGD [facility] 3603-27-2023 36 Per elder Ba for abdominal pain. Rx sent. [facility] 03-17-2023 36 Spoke to pt to shweta morton her that her US was normal, UGI was normal (no HH or reflux) and HIDA with EF 85% which is normal. Also informed her that Britney sent her a message via [employer] to see how she felt during HIDA but she never answered. I asked if she had any symptoms reproduced during HIDA? She said not really, just her stomach was a little bloated but she was fine afterwards. I informed her that the next step is EGD as she is already scheduled. Pt states understanding [facility] 36 Navneet, can you ple ase let this patient know that her US was normal, UGI was normal (no HH or reflux) and HIDA with EF 85% which is normal. I sent her a message via [employer] to see how she felt during HIDA but she never answered. Can you ask her if she had any symptoms reproduced during HIDA? Next step is EGD as she is already scheduled for. Thanks. [facility] US ABDOMEN COMPLETEon 2022 US ABDOMEN COMPLETE [...] Electronically Signed Date/Time: 03/17/2023 10:07 AM EDT [facility] Gallbladder Views W dori cystokinin and W radionuclide Rosa 02-27-2023 No evidence of acute cholecystitis or common bile duct obstruction. Normal gallbladder ejection fraction following CCK administration. Report Dictated on Electronically Signed By: Nikolay Johns Electronically Signed Date/Time: 02/27/2023 11:01 AM EDT [facility] Patient Name: DEVYN ZIEGLER : 1980 Exam [...] percent following CCK administration (normal above 35%). [facility] Nikolay Johns MD - 02/27/2023 Patient Name: [...] Electronically Signed Date/Time: 02/27/2023 11:01 AM EDT [facility] Radiology Study observation (narrative) [facility] Gallbladder Views W dori cystokinin and W radionuclide IVOrdered By: Nikolay Johns on 02-27-2023 [facility] Work Phone: 36on 02-23-2023 36 Patient called back and states that date and time are fine. 03/27/2023 [facility] 11:40 with arrival at 10:40 [facility] 36 Requested patient cindy ll back to let me know if she could make her EGD appt 03/27/23 11:40 [facility] Normal [facility] Office Visiton 02-19-2023 Follow-up visit [id number] Colby Corona 1980 F Date Provider Department Center 02/19/2023 [id number] [facility] ALS None Family History Problem Relation Age of Onset Bradycardia Mother Lung cancer Father Alcohol abuse Father Other Father Family Status - Relation Status Age at Mother Alive Father Level of Service:20747 [place] OFFICE/OUTPATIENT NEW MODERATE MDM 45-59 MINUTES Reason for Visit and Comments: New Patient [542] - 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 GARCIA - GERD/POSSIBLE HERNIA [facility] Progress Noteon 02-19-2023 Progress Note [facility] Advanced Laparoscopic Surgery Patient Name: Devyn Corona [...] with epigas (more content not included)... [facility] Absolute lymphocyte countOrd ered By: Dr. Garcia on 02-13-2023 Lymphocytes Auto (Unsp spec) [#/Vol] 2.08 10*3/uL 0.83-4.51 [facility] Basophil percentageOrdered B y: Dr. Garcia on 02-13-2023 Basophils/100 WBC (Bld) 0.8 % 0-1 [facility] Bilirubin [Mass/Vol] 0.30 mg/dL 0.20-1.00 [facility] Comment on above: For patients on eltr ombopag therapy, use of Dimension [place] TBIL is not recommended. Chloride [Moles/Vol] 104 mmol/L 98-107 [facility] Eosinophils/100 WBC (Bld) 1.3 % 0-5 [facility] Glucose [Mass/Vol] 90 mg/dL 74-106 [facility] Neutrophils (Bld) [#/Vol] 2.7 10*3/uL 2.0-7.7 [facility] Neutrophils/100 WBC (Bld) 50.2 % 47-70 [facility] Potassium [Moles/Vol] 3.7 mmol/L 3.5-5.1 [facility] Protein [Mass/Vol] 7.4 g/dL 6.4-8.2 [facility] Sodium [Moles/Vol] 133 mmol/L 136-145 [facility] WBC (Bld) [#/Vol] 5.3 10*3/uL 4.4-11.0 [facility] Blood erythrocytes count (nu mber/volume)Ordered By: Dr. Garcia on 02-13-2023 RBC (Bld) [#/Vol] 4.38 10*6/uL 4.2-5.4 [facility] Blood hemoglobin measurement (mass/volume)Ordered By: Dr. Garcia on 02-13-2023 Hemoglobin (Bld) [Mass/Vol] 12.8 g/dL 12.0-15.0 [facility] Blood lymphocytes/100 leukoc ytesOrdered By: Dr. Garcia on 02-13-2023 Lymphocytes/100 WBC (Bld) 39.5 % 19-41 [facility] Blood monocytes/100 leukocyt esOrdered By: Dr. Garcia on 02-13-2023 Monocytes/100 WBC (Bld) 8.0 % 0-10 [facility] Blood platelet mean volumeOr dered By: Dr. Garcia on 02-13-2023 Platelet mean volume (Bld) [Entitic vol] 10.7 fL 6.2-12.0 [facility] Determination of erythrocyte mean corpuscular volume (MCV)Ordered By: Dr. Garcia on 02-13-2023 MCV (RBC) [Entitic vol] 89.7 fL 81-99 [facility] Hematocrit Auto (Bld) [Volum e fraction]Ordered By: Dr. Garcia on 02-13-2023 Hematocrit (Bld) [Volume fraction] 39.3 % 37-47 [facility] Laboratory - Chemistry and C hemistry - challengeOrdered By: Dr. Garcia on 02-13-2023 ALP [Catalytic activity/Vol] 50 U/L 45-117 [facility] ALT [Catalytic activity/Vol] 26 U/L 13-56 [facility] CO2 [Moles/Vol] 25.0 mmol/L 21.0-32.0 [facility] Globulin (S) [Mass/Vol] 3.3 g/dL 2.2-4.2 [facility] Urea nitrogen/Creatinine [Mass ratio] 22.2 mg/mg 10-20 [facility] Laboratory - Hematology and Cell countsOrdered By: Dr. Garcia on 02-13-2023 Erythrocyte distribution width (RBC) [Entitic vol] 41.4 fL 35.1-43.9 [facility] Erythrocyte distribution width (RBC) [Ratio] 12.5 % 11.6-14.6 [facility] Immature granulocytes/100 WBC (Bld) 0.200 % 0.0-0.9 [facility] Comment on above: IG% - Immature Granu locytes (promyelocytes, myelocytes and metamyelocytes) > 1% indicates that a LEFT SHIFT is Present. MCH (RBC) [Entitic mass] 29.2 pg 27.0-32.0 [facility] Nucleated RBC/100 WBC (Bld) [Ratio] 0 % 0-5 [facility] MCHC Auto (RBC) [Mass/Vol]Or dered By: Dr. Garcia on 02-13-2023 MCHC (RBC) [Mass/Vol] 32.6 g/dL 32-36 [facility] No Panel InformationOrdered By: Dr. Garcia on 02-13-2023 Estimated GFR (MDRD) Amer 107 mL/min >60 [facility] Comment on above: GFR Calc Estimated GFR (MDRD) Non-Af Amer 88 mL/min >60 [facility] Comment on above: Non- GFR Calc Platelets bldOrdered By: Dr. Garcia on 02-13-2023 Platelets (Bld) [#/Vol] 240 10*3/uL 150-450 [facility] Serum or plasma albumin santa urement (mass/volume)Ordered By: Dr. Garcia on 02-13-2023 Albumin [Mass/Vol] 4.1 g/dL 3.2-5.0 [facility] Serum or plasma albumin/glob ulin mass ratioOrdered By: Dr. Garcia on 02-13-2023 Albumin/Globulin [Mass ratio] 1.2 {ratio} 0.9-2.4 [facility] Serum or plasma calcium santa urement (mass/volume)Ordered By: Dr. Garcia on 02-13-2023 Calcium [Mass/Vol] 9.0 mg/dL 8.5-10.1 [facility] Serum or plasma creatinine m easurement (mass/volume)Ordered By: Dr. Garcia on 02-13-2023 Creatinine [Mass/Vol] 0.77 mg/dL 0.55-1.02 [facility] Comment on above: The validity of the calculated GFR & GFRAA in patients over 70 years has not been determined. Clinical correlation is essential. Serum or plasma urea nitroge n measurement (mass/volume)Ordered By: Dr. Garcia on 02-13-2023 Urea nitrogen [Mass/Vol] 17 mg/dL 7-18 [facility] Thin prep Papanicolaou smear with manual screeningOrdered By: Dr. Garcia on 02-13-2023 Thin prep Papanicolaou smear with manual screening 22 U/L 15-37 [facility] Thin prep Papanicolaou smear with manual screening 4 5-15 [facility] Absolute lymphocyte counton 08-28-2022 Lymphocytes Auto (Unsp spec) [#/Vol] 2.38 10*3/uL 0.83-4.51 [facility] Work Phone: Basophil percentageon 2021 Basophil percentage 0-5 SEEN /hpf 0-5 [facility] Work Phone: Basophils/100 WBC (Bld) 0.4 % 0-1 [facility] Work Phone: Bilirubin [Mass/Vol] 0.80 mg/dL 0.20-1.00 [facility] Work Phone: Comment on above: For patients on eltr ombopag therapy, use of Dimension [place] TBIL is not recommended. Chloride [Moles/Vol] 98 mmol/L 98-107 [facility] Work Phone: Cholesterol [Mass/Vol] 216 mg/dL <200 [facility] Work Phone: Comment on above: <200 mg/dL Desirable 200-240 mg/dL Borderline >240 mg/dL High Risk Eosinophils/100 WBC (Bld) 0.9 % 0-5 [facility] Work Phone: Glucose [Mass/Vol] 86 mg/dL 74-106 [facility] Work Phone: Neutrophils (Bld) [#/Vol] 4.0 10*3/uL 2.0-7.7 [facility] Work Phone: Neutrophils/100 WBC (Bld) 58.0 % 47-70 [facility] Work Phone: Potassium [Moles/Vol] 3.5 mmol/L 3.5-5.1 [facility] Work Phone: Protein [Mass/Vol] 8.0 g/dL 6.4-8.2 [facility] Work Phone: Sodium [Moles/Vol] 135 mmol/L 136-145 [facility] Work Phone: Triglyceride [Mass/Vol] 61 mg/dL <199 [facility] Work Phone: Comment on above: The drugs N-Acetylcy steine and Metamizole may falsely depress this assay.Serum Triglycerides Reference Interval Normal <150 mg/dL Borderline high 150 - 199 mg/dL High 200 - 499 mg/dL Very High > or = 500 mg/dL WBC (Bld) [#/Vol] 7.0 10*3/uL 4.4-11.0 [facility] Work Phone: [phone] Bilirubin Test strip Ql (U)o n 08-28-2022 Bilirubin Ql (U) Negative Negative [facility] Work Phone: Blood erythrocytes count (nu mber/volume)on 08-28-2022 RBC (Bld) [#/Vol] 4.62 10*6/uL 4.2-5.4 [facility] Work Phone: Blood hemoglobin measurement (mass/volume)on 08-28-2022 Hemoglobin (Bld) [Mass/Vol] 14.1 g/dL 12.0-15.0 [facility] Work Phone: Blood lymphocytes/100 leukoc yteson 08-28-2022 Lymphocytes/100 WBC (Bld) 34.1 % 19-41 [facility] Work Phone: Blood monocytes/100 leukocyt eson 08-28-2022 Monocytes/100 WBC (Bld) 6.5 % 0-10 [facility] Work Phone: Blood platelet mean volumeon 08-28-2022 Platelet mean volume (Bld) [Entitic vol] 10.4 fL 6.2-12.0 [facility] Work Phone: Determination of erythrocyte mean corpuscular volume (MCV)on 08-28-2022 MCV (RBC) [Entitic vol] 87.4 fL 81-99 [facility] Work Phone: Hematocrit Auto (Bld) [Volum e fraction]on 08-28-2022 Hematocrit (Bld) [Volume fraction] 40.4 % 37-47 [facility] Work Phone: Iron measurement (mass/mass) on 08-28-2022 Iron (Unsp spec) [Mass/Mass] 81 ug/dL 50-170 [facility] Work Phone: Ketones Test strip Ql (U)on 08-28-2022 Ketones Ql (U) Negative Negative [facility] Work Phone: Laboratory - Chemistry and C hemistry - challengeon 08-28-2022 ALP [Catalytic activity/Vol] 41 U/L 45-117 [facility] Work Phone: ALT [Catalytic activity/Vol] 30 U/L 13-56 [facility] Work Phone: CO2 [Moles/Vol] 28.0 mmol/L 21.0-32.0 [facility] Work Phone: Cobalamin (Vitamin B12) [Mass/Vol] 914 pg/mL 211-911 [facility] Work Phone: Globulin (S) [Mass/Vol] 3.6 g/dL 2.2-4.2 [facility] Work Phone: Urea nitrogen/Creatinine [Mass ratio] 21.6 mg/mg 10-20 [facility] Work Phone: Laboratory - Hematology and Cell countson 08-28-2022 Erythrocyte distribution width (RBC) [Entitic vol] 40.1 fL 35.1-43.9 [facility] Work Phone: Erythrocyte distribution width (RBC) [Ratio] 12.6 % 11.6-14.6 [facility] Work Phone: Immature granulocytes/100 WBC (Bld) 0.100 % 0.0-0.9 [facility] Work Phone: Comment on above: IG% - Immature Granu locytes (promyelocytes, myelocytes and metamyelocytes) > 1% indicates that a LEFT SHIFT is Present. MCH (RBC) [Entitic mass] 30.5 pg 27.0-32.0 [facility] Work Phone: Nucleated RBC/100 WBC (Bld) [Ratio] 0 % 0-5 [facility] Work Phone: MCHC Auto (RBC) [Mass/Vol]on 08-28-2022 MCHC (RBC) [Mass/Vol] 34.9 g/dL 32-36 [facility] Work Phone: Mucus LM Ql (Urine sed)on Mucus Ql (Urine sed) 0 SEEN /hpf [facility] Work Phone: Nitrite Test strip Ql (U)on 08-28-2022 Nitrite Ql (U) Negative Negative [facility] Work Phone: No Panel Informationon 08-28 Estimated GFR (MDRD) Amer 86 mL/min >60 [facility] Work Phone: Comment on above: GFR Calc Estimated GFR (MDRD) Non-Af Amer 71 mL/min >60 [facility] Work Phone: Comment on above: Non- GFR Calc Thyroid Stimulating Hormone (TSH) 2.55 uIU/mL 0.358-3.74 [facility] Work Phone: Total Iron Binding Capacity 386 ug/dL 250-450 [facility] Work Phone: Platelets bldon 08-28-2022 Platelets (Bld) [#/Vol] 285 10*3/uL 150-450 [facility] Work Phone: Protein Test strip Ql (U)on 08-28-2022 Protein Ql (U) Negative Negative [facility] Work Phone: Serum or plasma albumin santa urement (mass/volume)on 08-28-2022 Albumin [Mass/Vol] 4.4 g/dL 3.2-5.0 [facility] Work Phone: Serum or plasma albumin/glob ulin mass ratioon 08-28-2022 Albumin/Globulin [Mass ratio] 1.2 {ratio} 0.9-2.4 [facility] Work Phone: Serum or plasma calcium santa urement (mass/volume)on 08-28-2022 Calcium [Mass/Vol] 10.1 mg/dL 8.5-10.1 [facility] Work Phone: Serum or plasma cholesterol in HDL measurement (mass/volume)on 08-28-2022 Cholesterol in HDL [Mass/Vol] 104 mg/dL >40 [facility] Work Phone: Comment on above: The drugs N-Acetylcy steine and Metamizole may falsely depress this assay. Reference Range HDL <40 mg/dL Low HDL Cholesterol HDL >or= 60 mg/dL High HDL Cholesterol Serum or plasma cholesterol in VLDL measurement (mass/volume)on 08-28-2022 Cholesterol in VLDL [Mass/Vol] 12 mg/dL 5-40 [facility] Work Phone: Serum or plasma creatinine m easurement (mass/volume)on 08-28-2022 Creatinine [Mass/Vol] 0.93 mg/dL 0.55-1.02 [facility] Work Phone: Comment on above: The validity of the calculated GFR & GFRAA in patients over 70 years has not been determined. Clinical correlation is essential. Serum or plasma ferritin gavi surement (mass/volume)on 08-28-2022 Ferritin [Mass/Vol] 23 ng/mL 8-252 [facility] Work Phone: Serum or plasma folate measu rement (mass/volume)on 08-28-2022 Folate [Mass/Vol] 23.20 ng/mL 3.1-55.4 [facility] Work Phone: Serum or plasma low density lipoprotein (LDL) cholesterol measurement (mass/volume)on 08-28-2022 Cholesterol in LDL [Mass/Vol] 100 mg/dL 0-130 [facility] Work Phone: Serum or plasma urea nitroge n measurement (mass/volume)on 08-28-2022 Urea nitrogen [Mass/Vol] 20 mg/dL 7-18 [facility] Work Phone: Squamous epithelial cells de tection in urine sediment by light microscopyon 08-28-2022 Epithelial cells.squamous LM Ql (Urine sed) 0-5 SEEN /hpf 5-10 [facility] Work Phone: Thin prep Papanicolaou smear with manual screeningon 08-28-2022 Thin prep Papanicolaou smear with manual screening 24 U/L 15-37 [facility] Work Phone: Thin prep Papanicolaou smear with manual screening 9 5-15 [facility] Work Phone: Urine blood detectionon RBC Ql (U) 10 /ul Negative [facility] Work Phone: RBC Ql (U) 0 SEEN /hpf 0-5 [facility] Work Phone: Urine clarityon 08-28-2022 Clarity (U) Clear Clear [facility] Work Phone: Urine color determinationon 08-28-2022 Color (U) Yellow Yellow [facility] Work Phone: Urine glucose detectionon Glucose Ql (U) Normal mg/dl Normal [facility] Work Phone: Urine leukocyte esterase det ection by dipstickon 08-28-2022 Leukocyte esterase Test strip Ql (U) Negative Negative [facility] Work Phone: Urine pHon 08-28-2022 pH (U) 6.0 [pH] 5.0 - 8.0 [facility] Work Phone: Urine sediment bacteria coun t by microscopy (number/high power field)on 08-28-2022 Bacteria LM.HPF (Urine sed) [#/Area] 0 /[HPF] None Seen [facility] Work Phone: Urine specific gravity measu rementon 08-28-2022 Specific gravity (U) [Rel density] 1.010 1.002-1.03 0 [facility] Work Phone: Urobilinogen Auto test strip Ql (U)on 08-28-2022 Urobilinogen Ql (U) Normal mg/dl Normal [facility] Work Phone: Basophil percentageon 2021 Basophil percentage < 0.9 mg/dL 0.55-1.02 [facility] Work Phone: No Panel Informationon 08-21 Bedside Estimated GFR (eGFR) > 60.0000 mL/min >60 [facility] Work Phone: LG Jt Injection/Arthrocentes is: R kneeon 12-31-2021 Tammy Silva CNP 12/31/2021 10:15 AM LG Jt Injection/Arthrocentesis: R knee Performed by: Tammy Silva CNP Authorized by: Tammy Silva CNP CPT 66475 - Large Joint Arthrocentesis: Consent given by: [...] the procedure well with no immediate complications [facility] [id number] 10-15-20[id number] [place] Patient: DEVYN [place] [address] Admit Date: 09/12/21 /Age: 04 1980 Family Physician: CARDIOVASCULAR NONINVASIVE TESTING Attending Physician: Clemente Landis MD Med Rec #: [id number] 30-DAY EVENT RECORDER DATE: September 12, 2021 [...] MIS /JOSÉ LUIS Authenticated on: 10/29/21 1330 [id number] Job ID# [id number] CC: Clemente Landis MD Normal [facility] Basic Metabolic panelon 08-26 Anion gap [Moles/Vol] 8 mmol/L Low - [facility] Comment on above: Performed By: #### B MP #### [facility] (DEFAULT) [address] [place], [place] [address] Calcium [Mass/Vol] 9.3 mg/dL Normal 8.0-10.2 [facility] Comment on above: Performed By: #### B MP #### [facility] (DEFAULT) [address], [place] [address] Chloride [Moles/Vol] 103 mmol/L Normal 98-108 [facility] Comment on above: Performed By: #### B MP #### [facility] (DEFAULT) [address] [place], [place] [address], [place] [address] CO2 [Moles/Vol] 29.0 mmol/L Normal 21.0-32.0 [facility] Comment on above: Performed By: #### B MP #### [facility] (DEFAULT) [address] [place] [address] Creatinine [Mass/Vol] 0.8 mg/dL Normal 0.4-1.1 [facility] Comment on above: Performed By: #### B MP #### [facility] (DEFAULT) [address] [place] [address] GFR/1.73 sq M.predicted MDRD (S/P/Bld) [Vol rate/Area] 80 mL/min/{1.73_m2} Normal 60-1000 [facility] Comment on above: Result Comment: The eGFR should be used for monitoring renal function only and not for medication dosing. Performed By: #### B MP #### [facility] (DEFAULT) [address] [place] [address] Glucose [Mass/Vol] 95 mg/dL Normal 65-99 [facility] Comment on above: Performed By: #### B MP #### [facility] (DEFAULT) [address] [place] [address] Potassium [Moles/Vol] 3.9 mmol/L Normal 3.5-5.1 [facility] Comment on above: Performed By: #### B MP #### [facility] (DEFAULT) [address] [place] [address] Sodium [Moles/Vol] 136 mmol/L Normal 135-145 [facility] Comment on above: Performed By: #### B MP #### [facility] (DEFAULT) [address] [place], [place] [address] Urea nitrogen [Mass/Vol] 14 mg/dL Normal - [facility] Comment on above: Performed By: #### B MP #### [facility] (DEFAULT) [address] [place], [place] [address] Basic metabolic 2000 panelon 09-12-2021 Anion gap [Moles/Vol] 8 mmol/L Low 10 - 2 0 mmol/L [facility] Calcium [Mass/Vol] 9.3 mg/dL 8.0 - 10. 2 mg/dL [facility] Chloride [Moles/Vol] 103 mmol/L 98 - 10 8 mmol/L [facility] Creatinine [Mass/Vol] 0.8 mg/dL 0.4 - 1.1 mg/dL [facility] GFR/1.73 sq M.predicted among non-blacks MDRD (S/P/Bld) [Vol rate/Area] 80 mL/min/{1.73_m2} [facility] Comment on above: The eGFR should be u sed for monitoring renal function only and not for medication dosing. Glucose [Mass/Vol] 95 mg/dL 65 - 99 mg/dL [facility] HCO3 (Bld) [Moles/Vol] 29.0 mmol/L 21.0 - 32.0 mmol/L [facility] Interpretation and review of laboratory results Abnormal [facility] Potassium [Moles/Vol] 3.9 mmol/L 3.5 - 5.1 mmol/L [facility] Sodium [Moles/Vol] 136 mmol/L 135 - 145 mmol/L [facility] Urea nitrogen [Mass/Vol] 14 mg/dL 8 - 25 mg/dL [facility] CT HEAD WITHOUT CONTRASTon 0 07-21-2021 [...] IMPRESSION: 1. Brain within normal limits. Normal [facility] [place] 07-09-2021 ALT [Catalytic activity/Vol] 20 U/L Normal <35 [facility] Comment on above: Result Comment: Test ing performed at [place] [address] Performed By: #### A LT, HEMOG, TSH2, BMPF #### [place] [address] BMP FASTINGon 07-09-2021 Anion gap [Moles/Vol] 10 mmol/L Normal 8-16 [facility] Comment on above: Performed By: #### A LT, HEMOG, TSH2, BMPF #### [place] [address] Calcium [Mass/Vol] 9.7 mg/dL Normal 8.4-10.2 [facility] Comment on above: Performed By: #### A LT, HEMOG, TSH2, BMPF #### [place] [address] Chloride [Moles/Vol] 102 mmol/L Normal 98-107 [facility] Comment on above: Result Comment: Plea se note: Triglyceride levels of 600mg/dL or higher may positively bias chloride results by approximately 2.1 mmol Performed By: #### A LT, HEMOG, TSH2, BMPF #### [place] [address] CO2 [Moles/Vol] 26 mmol/L Normal 22-30 [facility] Comment on above: Performed By: #### A LT, HEMOG, TSH2, BMPF #### [place] [address] Creatinine [Mass/Vol] 0.70 mg/dL Normal 0.7-1.2 [facility] Comment on above: Performed By: #### A LT, HEMOG, TSH2, BMPF #### [place] [address] EST. GFR, >60 Normal [facility] Comment on above: Performed By: #### A LT, HEMOG, TSH2, BMPF #### [place] [address] EST. GFR,Non >60 Normal [facility] Comment on above: Performed By: #### A LT, HEMOG, TSH2, BMPF #### [place] [address] GFR Information Average GFR for 30-3 9 years old = 109. Normal [facility] Comment on above: Result Comment: Cover Cutter Machine jodie Kidney disease, GFR = <60. Kidney failure, GFR = <15. The GFR estimate is not adjusted for extreme body surface area or acute process, nor has it been validated for women or ethnic groups other than and . Testing performed at [place] [address] Performed By: #### A LT, HEMOG, TSH2, BMPF #### [place] [address] Glucose [Mass/Vol] 87 mg/dL Normal 70-100 [facility] Comment on above: Result Comment: NORMAL <100 mg/dL PREDIABETES 101-126 mg/dL DIABETES 126 mg/dL or higher Performed By: #### A LT, HEMOG, TSH2, BMPF #### [place] [address] Potassium [Moles/Vol] 4.3 mmol/L Normal 3.5-5.1 [facility] Comment on above: Performed By: #### A LT, HEMOG, TSH2, BMPF #### Testing [place] [address] Sodium [Moles/Vol] 138 mmol/L Normal 137-145 [facility] Comment on above: Performed By: #### A LT, HEMOG, TSH2, BMPF #### [place] [address] Urea nitrogen [Mass/Vol] 16 mg/dL Normal 7-20 [facility] Comment on above: Performed By: #### A LT, HEMOG, TSH2, BMPF #### [place] [address] CBC(NO DIFF)on 07-09-2021 Erythrocyte distribution width (RBC) [Ratio] 12.5 % Normal 11.5-14.5 [facility] Comment on above: Performed By: #### A LT, HEMOG, TSH2, BMPF #### [place] [address] Hematocrit (Bld) [Volume fraction] 40.8 % Normal 36.0-48.0 [facility] Comment on above: Performed By: #### A LT, HEMOG, TSH2, BMPF #### [place] [address] Hemoglobin (Bld) [Mass/Vol] 13.6 g/dL Normal 12.0-16.0 [facility] Comment on above: Performed By: #### A LT, HEMOG, TSH2, BMPF #### [place] [address] MCH (RBC) [Entitic mass] 29.6 pg Normal 26.0-35.0 [facility] Comment on above: Performed By: #### A LT, HEMOG, TSH2, BMPF #### [place] [address] MCHC (RBC) [Mass/Vol] 33.4 g/dL Normal 27.0-37.0 [facility] Comment on above: Performed By: #### A LT, HEMOG, TSH2, BMPF #### [place] [address] MCV (RBC) [Entitic vol] 88.5 fL Normal 80.0-100.0 [facility] Comment on above: Performed By: #### A LT, HEMOG, TSH2, BMPF #### [place] [address] Platelet mean volume (Bld) [Entitic vol] 9.3 fL Normal 7.4-11.0 [facility] Comment on above: Result Comment: Test ing performed at [place] [address] Performed By: #### A LT, HEMOG, TSH2, BMPF #### [place] [address] Platelets (Bld) [#/Vol] 213 10*3/uL Normal 130.0-400. 0 [facility] Comment on above: Performed By: #### A LT, HEMOG, TSH2, BMPF #### [place] [address] RBC (Bld) [#/Vol] 4.61 10*6/uL Normal 4.0-5.4 [facility] Comment on above: Performed By: #### A LT, HEMOG, TSH2, BMPF #### [place] [address] WBC (Bld) [#/Vol] 6.7 10*3/uL Normal 3.6-11.0 [facility] Comment on above: Performed By: #### A LT, HEMOG, TSH2, BMPF #### [place] [address] TSHon 07-09-2021 TSH 1.920 uIU/ML Normal 0.46-4.68 [facility] Comment on above: Result Comment: Test ing performed at [place] [address] Performed By: #### A CBC #### [place] [address] CBCon 04-16-2021 ABSOLUTE BAS 0.0 10*3/uL Normal 0.0-0.2 [facility] Comment on above: Result Comment: Test ing performed at [place] [address] Performed By: #### A CBC #### [place] [address] ABSOLUTE EOS 0.00 10*3/uL Normal 0.0-0.7 [facility] Comment on above: Performed By: #### A CBC #### [place] [address] ABSOLUTE NEUTROPHIL COUNT 9.2 10*3/uL High 1.4-6.5 [facility] Comment on above: Performed By: #### A CBC #### [place] [address] Basophils/100 WBC (Bld) 0.1 % Normal 0.0-2.0 [facility] Comment on above: Performed By: #### A CBC #### [place] [address] DTYPE AUTO DIFF Normal [facility] Comment on above: Performed By: #### A CBC #### [place] [address] Eosinophils/100 WBC (Bld) 0.0 % Normal 0.0-11.0 [facility] Comment on above: Performed By: #### A CBC #### [place] [address] Lymphocytes (Bld) [#/Vol] 0.40 10*3/uL Low 1.2-3.4 [facility] Comment on above: Performed By: #### A CBC #### [place] [address] Lymphocytes/100 WBC (Bld) 4.5 % Low 20.0-55.0 [facility] Comment on above: Performed By: #### A CBC #### [place] [address] Monocytes (Bld) [#/Vol] 0.1 10*3/uL Normal 0.0-0.7 [facility] Comment on above: Performed By: #### A CBC #### Testing performed at [address] [address] Monocytes/100 WBC (Bld) 0.9 % Normal 0.0-10.0 [facility] Comment on above: Performed By: #### A CBC #### Testing performed at [address] [address] Neutrophils/100 WBC (Bld) 94.5 % High 37.0-75.0 [facility] Comment on above: Performed By: #### A CBC #### Testing performed at [address] [address] Erythrocyte distribution width (RBC) [Ratio] 12.8 % Normal 11.5-14.5 [facility] Comment on above: Performed By: #### A CBC #### Testing performed at [address] [address] Hematocrit (Bld) [Volume fraction] 37.0 % Normal 36.0-48.0 [facility] Comment on above: Performed By: #### A CBC #### Testing performed at [address] [address] Hemoglobin (Bld) [Mass/Vol] 13.3 g/dL Normal 12.0-16.0 [facility] Comment on above: Performed By: #### A CBC #### Testing performed at [address] [address] MCH (RBC) [Entitic mass] 31.0 pg Normal 26.0-35.0 [facility] Comment on above: Performed By: #### A CBC #### Testing performed at [address] [address] MCHC (RBC) [Mass/Vol] 35.9 g/dL Normal 27.0-37.0 [facility] Comment on above: Performed By: #### A CBC #### Testing performed at [address] [address] MCV (RBC) [Entitic vol] 86.4 fL Normal 80.0-100.0 [facility] Comment on above: Performed By: #### A CBC #### [place] [address] Platelet mean volume (Bld) [Entitic vol] 8.3 fL Normal 7.4-11.0 [facility] Comment on above: Performed By: #### A CBC #### [place] [address] Platelets (Bld) [#/Vol] 204 10*3/uL Normal 130.0-400. 0 [facility] Comment on above: Performed By: #### A CBC #### [place] [address] RBC (Bld) [#/Vol] 4.28 10*6/uL Normal 4.0-5.4 [facility] Comment on above: Performed By: #### A CBC #### [place] [address] WBC (Bld) [#/Vol] 9.7 10*3/uL Normal 3.6-11.0 [facility] Comment on above: Performed By: #### A CBC #### [place] [address] REPEAT ABO/RHon 04-16-2021 REPEAT ABO/RH ABO/RH(D) O POSITIVE Testing performed at [address] Comment on above: Performed By: #### R ABRH #### [place] [address] NOVEL CORONAVIRUSon 04-15-20 21 NARRATIVE This test was perfor med using isothermal DARLENE and has been approved as Emergency Use Authorization (EUA) for the qualitative detection [id number] nucleic acid. [facility] Comment on above: Result Comment: Test ing performed at [place] [address] Performed By: #### C OVID #### [place] [address] SARS-CoV-2 (COVID-19) RNA DARLENE+probe Ql (Unsp spec) Not detected Normal NOT DETECTED [facility] Comment on above: Result Comment: Nega tive [...] #### C OVID #### [place] [address] CBCon 03-18-2021 ABSOLUTE BAS 0.0 10*3/uL Normal 0.0-0.2 [facility] Comment on above: Result Comment: Test ing performed at [place] [address] Performed By: #### A CBC #### [place] [address] ABSOLUTE EOS 0.10 10*3/uL Normal 0.0-0.7 [facility] Comment on above: Performed By: #### A CBC #### [place] [address] ABSOLUTE NEUTROPHIL COUNT 4.8 10*3/uL Normal 1.4-6.5 [facility] Comment on above: Performed By: #### A CBC #### [place] [address] Basophils/100 WBC (Bld) 0.5 % Normal 0.0-2.0 [facility] Comment on above: Performed By: #### A CBC #### [place] [address] DTYPE AUTO DIFF Normal [facility] Comment on above: Performed By: #### A CBC #### Testing performed at [address] [address] Eosinophils/100 WBC (Bld) 0.9 % Normal 0.0-11.0 [facility] Comment on above: Performed By: #### A CBC #### Testing performed at [address] [address] Lymphocytes (Bld) [#/Vol] 1.50 10*3/uL Normal 1.2-3.4 [facility] Comment on above: Performed By: #### A CBC #### Testing performed at [address] [address] Lymphocytes/100 WBC (Bld) 22.3 % Normal 20.0-55.0 [facility] Comment on above: Performed By: #### A CBC #### Testing performed at [address] [address] Monocytes (Bld) [#/Vol] 0.4 10*3/uL Normal 0.0-0.7 [facility] Comment on above: Performed By: #### A CBC #### Testing performed at [address] [address] Monocytes/100 WBC (Bld) 5.6 % Normal 0.0-10.0 [facility] Comment on above: Performed By: #### A CBC #### Testing performed at [address] [address] Neutrophils/100 WBC (Bld) 70.7 % Normal 37.0-75.0 [facility] Comment on above: Performed By: #### A CBC #### Testing performed at [address] [address] Erythrocyte distribution width (RBC) [Ratio] 13.3 % Normal 11.5-14.5 [facility] Comment on above: Performed By: #### A CBC #### Testing performed at [address] [address] Hematocrit (Bld) [Volume fraction] 37.6 % Normal 36.0-48.0 [facility] Comment on above: Performed By: #### A CBC #### Testing performed at [address] [address] Hemoglobin (Bld) [Mass/Vol] 13.1 g/dL Normal 12.0-16.0 [facility] Comment on above: Performed By: #### A CBC #### Testing performed at [address] [address] MCH (RBC) [Entitic mass] 30.9 pg Normal 26.0-35.0 [facility] Comment on above: Performed By: #### A CBC #### Testing performed at [address] [address] MCHC (RBC) [Mass/Vol] 35.0 g/dL Normal 27.0-37.0 [facility] Comment on above: Performed By: #### A CBC #### Testing performed at [address] [address] MCV (RBC) [Entitic vol] 88.4 fL Normal 80.0-100.0 [facility] Comment on above: Performed By: #### A CBC #### Testing performed at [address] [address] Platelet mean volume (Bld) [Entitic vol] 8.1 fL Normal 7.4-11.0 [facility] Comment on above: Performed By: #### A CBC #### Testing performed at [address] [address] Platelets (Bld) [#/Vol] 210 10*3/uL Normal 130.0-400. 0 [facility] Comment on above: Performed By: #### A CBC #### Testing performed at [address] [address] RBC (Bld) [#/Vol] 4.25 10*6/uL Normal 4.0-5.4 [facility] Comment on above: Performed By: #### A CBC #### Testing performed at [address] [address] WBC (Bld) [#/Vol] 6.7 10*3/uL Normal 3.6-11.0 [facility] Comment on above: Performed By: #### A CBC #### Testing performed at [facility] [address] [place] [address] TYPE AND SCREEN CROSSMATCH C ONVERTIBLEon 03-18-2021 TYPE AND SCREEN CROSSMATCH CONVERTIBLE WORKUP EXPIRES 04/19/2021,2359 ABO/RH(D) O POSITIVE ANTIBODY SCREEN NEGATIVE ARM BAND NUMBER [id number] Testing performed at [place] [id number] Normal [facility] Comment on above: Performed By: #### A CBC #### Testing performed at [facility] [address] [place] [address] COLONOSCOPYon 01-01-2021 [facility] Gastroenterology Patient Name: Devyn Corona Procedure Date: 01/01/2021 10:35 AM Date of : 1980 Admit Type: Outpatient Age: 40 Room: Procedure Room #2 Gender: Female Note Status: Finalized Attending MD: Wilder Hale MD Instrument Name: [id number] - GIF H190,[id number] Procedure: Colonoscopy Indications: Rectal bleeding, Chronic idiopathic [...] life. - Augmented water consumption diet. - [place] 5/325 every 4 hours, as needed, for pain .# 12 pills prescribed. - TRULANCE 3 MG DAILY FOR CONSTIPATION. Procedure Code(s): --- Professional --- 99363, Colonoscopy, flexible; with band ligation(s) (eg, hemorrhoids) Diagnosis Code(s): --- Professional --- K64.0, First degree hemorrhoids K62.5, Hemorrhage of anus and rectum K59.04, Chronic idiopathic constipation CPT copyright 2020 [employer] [place]. All rights reserved. The codes documented in this report are preliminary and upon appliance parts counter clerk review may be revised to meet current compliance requirements. MD Wilder Aguirre MD 01/01/2021 11:07:18 AM This report has been signed electronically. Number of Addenda: 0 Note Initiated On: 01/01/2021 10:35 AM [facility] UPPER ENDOSCOPYon 01-01-2021 [facility]astroenter[facility] Patient Name: Devyn Corona Procedure Date: 01/01/2021 10:12 AM Date of : 1980 Admit Type: Outpatient Age: 40 Room: Procedure Room #2 Gender: Female Note Status: Finalized Attending MD: Wilder Hale MD Instrument Name: [id number] - GIF H190 Procedure: Upper GI endoscopy [...] disease activity. Procedure Code(s): --- Professional --- 64599, Esophagogastroduodenoscopy, flexible, transoral; with biopsy, single or multiple Diagnosis Code(s): --- Professional --- K21.00, Gastro-esophageal reflux disease with esophagitis, without bleeding K22.8, Other specified diseases of esophagus R12, Heartburn CPT copyright 2020 [employer] [place] [employer]. All rights reserved. The codes documented in this report are preliminary and upon appliance parts counter clerk review may be revised to meet current compliance requirements. MD Wilder Aguirre MD 01/01/2021 10:39:42 AM This report has been signed electronically. Number of Addenda: 0 Note Initiated On: 01/01/2021 10:12 AM [facility] NOVEL CORONAVIRUSon 12-29-19 21 NARRATIVE This test was perfor med using real time PCR and has been approved as Emergency Use Authorization (EUA) for the qualitative detection of SARS-CoV-2 nucleic acid. Normal [facility] Comment on above: Result Comment: Test ing performed at [place] [address] Performed By: #### C OVID #### [place] [address] SARS-CoV-2 (COVID-19) RNA DARLENE+probe Ql (Unsp spec) Not detected Normal NOT DETECTED [facility] Comment on above: Result Comment: Nega tive [...] #### C OVID #### [place] [address] FREE T3on 12-18-2020 Free T3 [Mass/Vol] 2.58 pg/mL Low 2.77-5.27 [facility] C REACTIVE PROTEINon 021 CRP [Mass/Vol] 6.5 mg/L Normal 0-10.0 [facility] Comment on above: Performed By: #### E SR, CREACT #### Testing performed at [address] [place] [address] ESRon 12-17-2020 ESR (Bld) [Velocity] mm/h Normal 0-15 [facility] Comment on above: Performed By: #### E SR, CREACT #### Testing performed at [address] [address] PTH,INTACTon 12-17-2020 PTH,INTACT 47.0 pg/mL Normal 12-88 [facility] Comment on above: Performed By: #### R TSH, IPTH #### Testing performed at [address] [address] TSH,REFLEX FREE T4on 021 TSH,REFLEX FREE T4 2.307 uIU/ML Normal 0.45-5.33 [facility] Comment on above: Performed By: #### R TSH, IPTH #### Testing performed at [address] [place] [address] CBC WITH AUTO DIFFERENTIALon 12-03-2020 Basophils (Bld) [#/Vol] 0.03 10*3/uL [facility] Basophils/100 WBC (Bld) 0.6 % [facility] Eosinophils (Bld) [#/Vol] 0.13 10*3/uL [facility] Eosinophils/100 WBC (Bld) 2.5 % [facility] Erythrocyte distribution width (RBC) [Entitic vol] 12.8 % 11.6 - 14.8 % [facility] Hematocrit (Bld) [Volume fraction] 42.4 % 36.0 - 46.0 % [facility] Hemoglobin (Bld) [Mass/Vol] 13.9 g/dL 12.0 - 16.0 g/dL [facility] Immature granulocytes (Bld) [#/Vol] 0.01 10*3/uL [facility] Immature granulocytes/100 WBC (Bld) 0.20 % [facility] Comment on above: The IG parameter is the percentage of metamyelocytes, myelocytes and promyelocytes. An immature granulocyte count (IG) of 1% or more suggests the possibility of infection, an IG count of 3% is very likely related to an infection. Lymphocytes (Bld) [#/Vol] 2.18 10*3/uL [facility] Lymphocytes/100 WBC (Bld) 41.4 % [facility] MCH (RBC) [Entitic mass] 28.6 pg 26.0 - 34.0 pg [facility] MCHC (RBC) [Mass/Vol] 32.8 g/dL 31.0 - 37.0 g/dL [facility] MCV (RBC) [Entitic vol] 87.2 fL 80.0 - 100.0 fL [facility] Monocytes (Bld) [#/Vol] 0.40 10*3/uL [facility] Monocytes/100 WBC (Bld) 7.6 % [facility] Neutrophils (Bld) [#/Vol] 2.51 10*3/uL [facility] Neutrophils/100 WBC (Bld) 47.7 % [facility] Nucleated RBC (Bld) [#/Vol] 0.00 10*3/uL [facility] Nucleated RBC/100 WBC (Bld) [Ratio] 0.0 % [facility] Platelet mean volume (Bld) [Entitic vol] 10.6 fL 9.4 - 12.4 fL [facility] Platelets (Bld) [#/Vol] 210 10*3/uL [facility] RBC (Bld) [#/Vol] 4.86 10*6/uL [facility] WBC (Bld) [#/Vol] 5.26 10*3/uL [facility] Abdomen Pelvis With IV Co [...] symmetrical. MUSCULOSKELETAL FINDINGS: No acute osseous pathology. [facility] 1. Normal appendix 2 . No evidence of bowel obstruction. 3. There is thickening of the body of the stomach suggested which could indicate underlying gastritis. 4. 4.1 x 4 cm mass projects posteriorly from the uterus which could represent a large serosal fibroid. A pelvic ultrasound could be helpful. 5. Moderate amount of free pelvic fluid. [employer] Workstation ID: [id number] [facility] Interface, Rad In Fu ji Speechq - [...] 5. Moderate amount of free pelvic fluid. [employer] Workstation ID: [id number] [facility] Chem 7on 12-03-2020 Anion gap [Moles/Vol] 11 mmol/L 10 - 2 0 mmol/L [facility] Chloride [Moles/Vol] 104 mmol/L 98 - 10 8 mmol/L [facility] Creatinine [Mass/Vol] 0.88 mg/dL 0.40 - 1.10 [facility] GFR/1.73 sq M predicted among non-blacks MDRD (S/P/Bld) [Vol rate/Area] The eGFR should be used for monitoring renal function only and not for medication dosing. [facility] GFR/1.73 sq M.predicted CKD-EPI (S/P/Bld) [Vol rate/Area] 84 >=60 mL/min/1.7 3 m2 [facility] Glucose [Mass/Vol] 85 mg/dL 65 - 99 mg/dL [facility] HCO3 [Moles/Vol] 27 mmol/L 21 - 32 mmol/L [facility] Potassium [Moles/Vol] 3.6 mmol/L 3.5 - 5.1 mmol/L [facility] Sodium [Moles/Vol] 138 mmol/L 135 - 145 mmol/L [facility] Urea nitrogen [Mass/Vol] 14 mg/dL 8 - 25 mg/dL [facility] Urea nitrogen/Creatinine [Mass ratio] 15.9 mg/mg [facility] Hepatic Function Panel (LFT) on 12-03-2020 Albumin [Mass/Vol] 4.2 g/dL 3.2 - 5.2 g/dL [facility] ALP [Catalytic activity/Vol] 37 U/L Low 40 - 140 U/L [facility] ALT [Catalytic activity/Vol] 21 U/L 14 - 65 U/L [facility] AST [Catalytic activity/Vol] 20 U/L 0 - 45 U/L [facility] Bilirubin [Mass/Vol] 1.0 mg/dL 0.0 - 1 .3 mg/dL [facility] Bilirubin.conjugated [Mass/Vol] 0.3 mg/dL 0.0 - 0.4 mg/dL [facility] Interpretation and review of laboratory results Abnormal [facility] Protein [Mass/Vol] 7.6 g/dL 6.0 - 8.0 g/dL [facility] Lipaseon 12-03-2020 Lipase [Catalytic activity/Vol] 77 U/L 73 - 393 U/L [facility] Otheron 12-03-2020 Extra Tube Hold for add-ons. [facility] Comment on above: Auto resulted. Interpretation and review of laboratory results Normal [facility] URINALYSISon 12-03-2020 Bacteria Auto Ql (U) Few Abnormal None Se en /hpf [facility] Bilirubin Ql (U) Negative Negative [facility] Clarity Refractometry automated (U) Hazy Abnormal Clear [facility] Color (U) Yellow Colorless, Yellow [facility] Epithelial cells.squamous Auto (Urine sed) [#/Area] 12 High [facility] Glucose Auto test strip (U) [Mass/Vol] Negative Negative mg/dL [facility] Hemoglobin Auto test strip Ql (U) Negative Negative [facility] Interpretation and review of laboratory results Abnormal [facility] Ketones (U) [Mass/Vol] Negative Negat shell mg/dL [facility] Leukocyte esterase Auto test strip Ql (U) Small Abnormal Negative [facility] h Mucus Auto (Urine sed) [#/Area] Many Abnormal None Seen, Rare /lpf [facility] Nitrite Auto test strip Ql (U) Negative Negative [facility] pH (U) 6.0 [pH] [facility] Protein (U) [Mass/Vol] Negative Negat shell mg/dL [facility] RBC Auto (Urine sed) [#/Area] 6 High [facility] Specific gravity (U) [Rel density] 1.030 High [facility] Urobilinogen (U) [Mass/Vol] <2.0 <2.0 mg/dL [facility] WBC Auto (Urine sed) [#/Area] 3 [facility] Microscopic examinat ion is performed on all urinalysis samples and only positive findings are reported. The test for blood on the chemical analytic portion of urinalysis may also be positive due to hemoglobinuria and myoglobinuria and if red blood cells are present they are quantified by microscopic examination. [facility] Urine Pregnancyon 12-03-2020 HCG ( test) Ql (U) Negative Negative [facility] Interpretation and review of laboratory results Normal [facility] SARS-COV-2,NAAon 11-07-2020 SARS-CoV-2 (COVID-19) RNA DARLENE+probe Ql (Unsp spec) Not detected Normal [facility] Comment on above: Result Comment: Refe rence range: Not Detected (NOTE) This nucleic acid amplification test was developed and its performance characteristics determined by [employer]. Nucleic acid amplification tests include PCR and [...] 2019 FLUAV Ag IA Ql (Nph) Negative [employer] FLUBV Ag IA Ql (Nph) Negative [facility] Kyron POCT RAPID STREP Aon 020 S. pyogenes Ag Ql (Throat) Negative (+/-) [facility] OR Knee Right 1-2 Viewson 10-07-2019 Operative localizati on. [employer] Workstation ID: [id number] [facility] EXAMINATION: XR OR K NEE RIGHT 1-2 [...] Degenerative changes are seen in the knee. [facility] Interface, Rad In Fu ji Speechq - [...] IMPRESSION: Operative localization. EHR/bd Workstation ID: [id number] [facility] ORT LARGE JOINT ARTHROCEN TESISon 08-08-2019 Tammy Silva CNP 08/08/2019 2:14 PM LG Jt Injection/Arthrocentesis: L knee Performed by: Tammy Silva CNP Authorized by: Tammy Silva CNP CPT 24316 - Large Joint Arthrocentesis: Consent given by: [...] the procedure well with no immediate complications [facility] Tammy Silva CNP 08/08/2019 2:14 PM LG Jt Injection/Arthrocentesis: R knee Performed by: Tammy Silva CNP Authorized by: Tammy Silva CNP CPT 80695 - Large Joint Arthrocentesis: Consent given by: [...] the procedure well with no immediate complications [facility] XR Knees Bilateral 4+ Views (Specify Views in Comments)on 08-01-2019 Moderate tricompartm ental osteoarthritis of the right knee with medial compartment predominance. Mild medial compartment degenerative changes in the left knee. Postsurgical findings of bilateral ACL repair. SLM/ Workstation ID: [id number] [facility] EXAMINATION: XR KNEE S BILATERAL 4+ VIEWS [...] in appropriate position. No significant joint effusion. [facility] Interface, Rad In Fu ji Speechq - [...] bilateral ACL repair. [employer] Workstation ID: [id number] [facility] AMB REFERRAL TO NEUROLOGYon 05-04-2019 emg 04/2019 [facility] EKGon 03-23-2019 Ordered by an unspec ified provider. [facility] Otheron 03-23-2019 Waqar Alcocer MD 03/23/2019 3:09 PM [facility] EEG Report Reason for EEG: Seizures Summary: [...] epileptiform discharges or ictal activity was seen. [facility] Alcohol, Medicalon 9 Ethanol mass conc 27.20 mg/dL High <10.00 [facility] Interpretation and review of laboratory results Abnormal [facility] CBC WITH AUTO DIFFERENTIALon 03-22-2019 Basophils #/vol (Bld) 0.03 10*3/uL [facility] Basophils/100 WBC (Bld) 0.4 % [facility] Eosinophils #/vol (Bld) 0.07 10*3/uL [facility] Eosinophils/100 WBC (Bld) 0.9 % [facility] Erythrocyte distribution width Entitic volume (RBC) 12.4 % 11.6 - 14.8 % [facility] Hematocrit Volume Fraction (Bld) 40.0 % 36 - 46 % [facility] Hemoglobin mass conc (Bld) 13.9 g/dL 12 - 16 g/dL [facility] Immature granulocytes #/vol (Bld) 0.02 10*3/uL [facility] Immature granulocytes/100 WBC (Bld) 0.30 % [facility] Comment on above: The IG parameter is the percentage of metamyelocytes, myelocytes, and promyelocytes. Lymphocytes #/vol (Bld) 2.25 10*3/uL [facility] Lymphocytes/100 WBC (Bld) 30.0 % [facility] MCH Entitic mass (RBC) 30.0 pg 26 - 34 pg [facility] MCHC mass conc (RBC) 34.8 g/dL 31 - 37 g/dL [facility] MCV Entitic volume (RBC) 86.4 fL 80 - 100 fL [facility] Monocytes #/vol (Bld) 0.44 10*3/uL [facility] Monocytes/100 WBC (Bld) 5.9 % [facility] Neutrophils #/vol (Bld) 4.70 10*3/uL [facility] Neutrophils/100 WBC (Bld) 62.5 % [facility] Nucleated RBC #/vol (Bld) 0.00 10*3/uL [facility] Nucleated RBC/100 WBC Ratio (Bld) 0.0 % [facility] Platelet mean volume Entitic volume (Bld) 9.6 fL 9 - 15.5 fL [facility] Platelets #/vol (Bld) 253 10*3/uL [facility] RBC #/vol (Bld) 4.63 10*6/uL [facility] WBC #/vol (Bld) 7.51 10*3/uL [facility] CT CERVICAL SPINE WITHOUT CO NTRASTon 03-22-2019 [...] due to muscle spasm. Workstation ID: [id number] [facility] EXAMINATION: CT CERV ICAL SPINE WITHOUT CONTRAST [...] malalignment, or other bony abnormality is seen. [facility] 1. C5-6 and C6-7 mod erate degenerative [...] due to muscle spasm. Workstation ID: [id number] [facility] CT HEAD WITHOUT CONTRAST (ST ROKE)on 03-22-2019 1. No acute infarct, hemorrhage or acute intracranial injury. However, if clinical suspicion for ischemic event persists further evaluation with diffusion-weighted MRI could be performed which is very sensitive for acute ischemic changes, provided, there are no contraindications for MRI. 2. No skull fractures. [employer] Workstation ID: [id number] [facility] CLINICAL HISTORY: Left-sided weakness prior to passing [...] cells appear normal. The calvarium appears intact. [facility] Interface, Rad In Fu ji Speechq - [...] No skull fractures. [employer] Workstation ID: [id number] [facility] CT MAXILLOFACIAL WITHOUT CON TRASTon 03-22-2019 Swelling and hematom a over the anterolateral right facial region and periorbital soft tissues without underlying fracture of the facial bones. Globes, and orbital contents appear to be normal. [employer] Workstation ID: [id number] [facility] Interface, Rad In Mariano Moralesq - 03/22/2019 [...] and orbital contents appear to be normal. [employer] Workstation ID: [id number] [facility] EXAMINATION: CT MAXILLOFACIAL WITHOUT CONTRAST HISTORY: ORDERING [...] and frontal bone appear to be intact. [facility] Chem 7on 03-22-2019 Anion gap molar conc 12 mmol/L 10 - 20 mmol/L [facility] Chloride molar conc 108 mmol/L 98 - 108 mmol/L [facility] Creatinine mass conc 0.84 mg/dL 0.4 - 1 .1 mg/dL [facility] GFR/1.73 sq M predicted among non-blacks MDRD vol rate/area (S/P/Bld) The eGFR should be used for monitoring renal function only and not for medication dosing. [facility] GFR/1.73 sq M.predicted CKD-EPI vol rate/area (S/P/Bld) 89 >=60 mL/min/1.7 3 m2 [facility] Glucose mass conc 74 mg/dL 65 - 99 mg/dL [facility] HCO3 molar conc 25 mmol/L 21 - 32 mmol/L [facility] Potassium molar conc 3.8 mmol/L 3.5 - 5 .1 mmol/L [facility] Sodium molar conc 141 mmol/L 135 - 145 mmol/L [facility] Urea nitrogen mass conc 11 mg/dL 8 - 25 mg/dL [facility] Urea nitrogen/Creatinine mass ratio 13.1 mg/mg [facility] ECG 12-LEADon 03-22-2019 Atrial Rate 48 BPM [facility] P [place] 58 degrees [facility] P-R Interval 132 ms [facility] Q-T Interval 506 ms [facility] QRS Duration 92 ms [facility] QTC Calculation (Bezet) 452 ms [facility] R [place] 70 degrees [facility] T [place] 60 degrees [facility] Ventricular Rate 48 BPM [facility] th Poor data qualit y, interpretation may be adversely affected Sinus bradycardia Otherwise normal ECG ECG Cart Interpretation see physician note for interpretation. Confirmed by Bhargavi Salinas ([id number]) on 03/22/2019 12:06:31 PM [facility] ECHOCARDIOGRAM COMPLETEon [address] [address] [place] [address] ECHOCARDIOGRAPHY REPORT - [facility] Name: DEVYN NARANJO Age: 39 years Date: 03/22/2019 Hospital #: : 1980 Room: [address] [place] [address] #: [id number] Sex: F Tech: [place] Ordering Physician: [id number] THIERRY Height: 65.00 in Sys BP: 157 CHAU cc: , Weight: 151.00 Renee BP: 88 Reading Physician: [id number] CALDERON Rhythm: Sinus bradycardia BOAZ/ Electronically Signed [id number] CALDERON BSA: 1.76 m by: BOAZ on: [...] LA Index (BP) 23.8 ml/m TAPSE LAESV TAXICAB COORDINATOR NOTES: Definity (if used): ml Final [facility], Rad In artlab Xper Echopacs - 03/22/2019 3:47 [place] [address] [place] [address] ----- ECHOCARDIOGRAPHY REPORT - [facility] ----- Name: DEVYN NARANJO Age: 39 years Date: 03/22/2019 Hospital #: : 1980 Room: [address] [place] [address] Rec #: [id number] Sex: F Tech: [place] Ordering Physician: [id number] THIERRY Height: 65.00 in Sys BP: 157 CHAU cc: , Weight: 151.00 Renee BP: 88 Reading Physician: [id number] CALDERON Rhythm: Sinus bradycardia BOAZ/ Electronically Signed [id number] CONSTANCE CALDERON BSA: 1.76 m by: BOAZ [...] LA Index (BP) 23.8 ml/m TAPSE LAESV TAXICAB COORDINATOR NOTES: Definity (if used): ml Final IMPRESSION: Normal LV size and systolic function, normal wall motion. LVEF greater than 65% [facility] HCG (QUANTITATIVE)on 019 HCG Qn m[IU]/mL [facility] HCG.beta subunit ( test) Ql (U) Males and non females: <5 mIU/mL Females during : 3-4 weeks 9-130 mIU/mL 4-5 weeks 75-2600 mIU/mL 5-6 weeks 850-20,800 mIU/mL 6-7 weeks 4000-100,200 mIU/mL 7-12 weeks 11,500-289,000 mIU/mL 12-16 weeks 18,300-137,000 mIU/mL 16-29 weeks 1,400-53,000 mIU/mL 29-41 weeks 940-60,000 mIU/mL [facility] Hemoglobin A1con 03-22-2019 Average glucose Estimated from glycated hemoglobin mass conc (Bld) 97 mg/dL 68 - 114 mg/dL [facility] Hemoglobin A1c/Hemoglobin.total mass fraction (Bld) 5.0 % 4 - 5.6 % [facility] Comment on above: Normal: 4.0% - 5.6% Increased risk for diabetes: 5.7% - 6.4% Diabetes: >= 6.5% Pediatrics: No established reference range Estimated average glucose: 68-114 mg/dL Please note: Reference intervals were changed as of 12/02/2018 to align with current Citizen [place] Diabetes Association guidelines Interpretation and review of laboratory results Normal [facility] Hepatic Function Panel (LFT) on 03-22-2019 Albumin mass conc 4.1 g/dL 3.2 - 5.2 g/dL [facility] ALP enzyme act/vol 44 U/L 40 - 140 U/L [facility] ALT enzyme act/vol 24 U/L 14 - 65 U/L [facility] AST enzyme act/vol 26 U/L 0 - 45 U/L [facility] Bilirubin mass conc 0.5 mg/dL 0 - 1.3 mg/dL [facility] Bilirubin.conjugated mass conc 0.1 mg/dL 0 - 0.4 mg/dL [facility] Protein mass conc 8.0 g/dL 6 - 8 g/dL [facility] lth Lactic Acid, Plasmaon 2018 Interpretation and review of laboratory results Normal [facility] Lactate molar conc 1.5 mmol/L 0.6 - 2 mmol/L [facility] Lipaseon 03-22-2019 Lipase enzyme act/vol 85 U/L 73 - 3 93 U/L [facility] Lipid Panelon 03-22-2019 Cholesterol in HDL mass conc 81 mg/dL 40 - 59 [facility] Comment on above: National Cholesterol Education Program Guidelines: HDL Cholesterol Low: <40 mg/dL Near Optimal: 40-59 mg/dL High: greater than or equal to 60 mg/dL Cholesterol in LDL mass conc 71 mg/dL 10 - 130 mg/dL [facility] Comment on above: National Cholesterol Education Program Guidelines: LDL Cholesterol Optimal: <100 mg/dL Near Optimal/above Optimal: 100-129 mg/dL Borderline High: 130-159 mg/dL High: 160-189 mg/dL Very High: greater than or equal to 190 mg/dL Reference range change on 11/09/17 to reflect NCEP guidelines. Cholesterol mass conc 168 mg/dL 100 - 199 mg/dL [facility] Comment on above: National Cholesterol Education Program Guidelines: Cholesterol Desirable: <200 mg/dL Borderline High: 200-239 mg/dL High: greater than or equal to 240 mg/dL Cholesterol non HDL mass conc 87 mg/dL [facility] Comment on above: National Cholesterol Education Program Guidelines: NON HDL Cholesterol Desirable: <130 mg/dL Borderline High: 130-159 mg/dL High: 160-189 mg/dL Very High: > or = 190 mg/dL Cholesterol.total/Chol esterol in HDL mass ratio 2.1 {ratio} ratio [facility] Comment on above: Female Cholesterol/HDL Ratio: Average risk: 4.4 1/2 average risk: 3.3 2 x average risk: 7.1 Triglyceride mass conc 82 mg/dL 30 - 150 mg/dL [facility] Comment on above: National Cholesterol Education Program [...] than left at C6-7. BON[employer]ACIO/jethro Workstation ID: [id number] [facility] Interface, Rad In Fu ji Speechq - [...] is no significant right and there is [id number] left neural foraminal stenosis. C4-5: There is [...] than left at C6-7. BONIFACIO/jethro Workstation ID: [id number] [facility] EXAMINATION: MR BRAI N WITHOUT CONTRAST; MR [...] is no significant right and there is [id number] left neural foraminal stenosis. C4-5: There is [...] partially visualized neck soft tissues are unremarkable. [facility] Interpretation and review of laboratory results Normal [facility] POC PT/INRon 03-22-2019 INR Coag RelTime (Bld) 0.9 {INR} [facility] Interpretation and review of laboratory results Normal [facility] PT/INRon 03-22-2019 INR Coag RelTime (PPP) 1.0 {INR} [facility] Interpretation and review of laboratory results Normal [facility] Prothrombin time (PT) Coag time (PPP) 12.5 s [facility] During the induction phase of oral anticoagulation, the INR may not reflect the anticoagulation status of the patient. Therapeutic ranges for INR's are: Most clinical situations: INR 2.0-3.0 Mechanical Prosthetic Valve: INR 2.5-3.5 Critical: INR >5.0 [facility] TROPONINon 03-22-2019 Troponin I.cardiac mass conc No biomarker evidence of cardiac injury. [facility] Troponin I.cardiac mass conc ng/mL <=45 ng/L [facility] Troponin I.cardiac mass conc No biomarker evidence of cardiac injury. [facility] Troponin I.cardiac mass conc ng/mL <=45 ng/L [facility] Troponin I.cardiac mass conc Normal [facility] Troponin I.cardiac mass conc ng/mL <=45 ng/L [facility] XR Chest 1 Viewon 03-22-2019 Interface, Rad [...] acute cardiopulmonary process. ST/r Workstation ID: [id number] [facility] No acute cardiopulmo nary process. /r Workstation ID: [id number] [facility] EXAMINATION: XR CHES T PA/AP HISTORY: ORDERING [...] normal in size. Bony thorax is unremarkable. [facility] CBC with Diffon 04-22-2018 Basophils Auto #/vol (Bld) 0.0 K/mcL Normal 0-0.2 [facility] Comment on above: Result Comment: BUCK Newman ETTING WITH IV Performed By: #### C BCDIF, CMET ####Unless otherwise noted, all testing performed by [address] [id number]: [id number] Director: Nikolay Irizarry M.D. Basophils/100 WBC Auto (Bld) 0.6 % Normal [facility] Comment on above: Result Comment: BUCK Newman ETTING WITH IV Performed By: #### C BCDIF, CMET ####Unless otherwise noted, all testing performed by [address] [phone]: [id number] Director: Nikolay Irizarry M.D. Eosinophils 0.0 K/mcL Normal 0-0.5 [facility] Comment on above: Result Comment: BUCK Newman ETTING WITH IV Performed By: #### C BCDIF, CMET ####Unless otherwise noted, all testing performed by [address] [phone]: [id number] Director: Nikolay Irizarry M.D. Eosinophils/100 leukocytes 0.7 % Normal [facility] Comment on above: Result Comment: BUCK Newman ETTING WITH IV Performed By: #### C BCDIF, CMET ####Unless otherwise noted, all testing performed by [address] [phone]: [id number] Director: Nikolay Irizarry M.D. Erythrocyte distribution width Auto Ratio (RBC) 13.5 % Normal 10.0-14.4 [facility] Comment on above: Result Comment: BUCK Newman ETTING WITH IV Performed By: #### C BCDIF, CMET ####Unless otherwise noted, all testing performed by [address] [phone]: [id number] Director: Nikolay Irizarry M.D. Erythrocytes (RBC) 4.70 M/mcL Normal 3.7-5.0 [facility] Comment on above: Result Comment: BUKC Newman ETTING WITH IV Performed By: #### C BCDIF, CMET ####Unless otherwise noted, all testing performed by [address] [phone]: [id number] Director: Nikolay Irizarry M.D. Hematocrit (HCT) 41.2 % Normal 34.4-44.8 [facility] Comment on above: Result Comment: BUCK Newman ETTING WITH IV Performed By: #### C BCDIF, CMET ####Unless otherwise noted, all testing performed by [address] [phone]: [id number] Director: Nikolay Irizarry M.D. Hemoglobin mass conc (Bld) 14.3 g/dL Normal 11.6-15.4 [facility] Comment on above: Result Comment: BUCK Newman ETTING WITH IV Performed By: #### C BCDIF, CMET ####Unless otherwise noted, all testing performed by [facility] [phone]: [id number] Director: Nikolay Irizarry M.D. Lymphocytes 1.0 K/mcL Normal 1.0-3.7 [facility] Comment on above: Result Comment: BUCK Newman ETTING WITH IV Performed By: #### C BCDIF, CMET ####Unless otherwise noted, all testing performed by [address] [phone]: [id number] Director: Nikolay Irizarry M.D. Lymphocytes/100 leukocytes 22.2 % Normal [facility] Comment on above: Result Comment: BUCK Newman ETTING WITH IV Performed By: #### C BCDIF, CMET ####Unless otherwise noted, all testing performed by [address] [phone]: [id number] Director: Nikolay Irizarry M.D. MCH 30.4 pg Normal 27.9-33.9 [facility] Comment on above: Result Comment: BUCK Newman ETTING WITH IV Performed By: #### C BCDIF, CMET ####Unless otherwise noted, all testing performed by [address] [phone]: [id number] Director: Nikolay Irizarry M.D. MCHC mass conc (RBC) 34.6 g/dL Normal 33.1-35.1 [facility] Comment on above: Result Comment: BUCK Newman ETTING WITH IV Performed By: #### C BCDIF, CMET ####Unless otherwise noted, all testing performed by [address] [phone]: [id number] Director: Nikolay Irizarry M.D. MCV 87.7 fL Normal 82.6-98.9 [facility] Comment on above: Result Comment: BUCK Newman ETTING WITH IV Performed By: #### C BCDIF, CMET ####Unless otherwise noted, all testing performed by [place] [phone]: [id number] Director: Nikolay Irizarry M.D. Monocytes 0.3 K/mcL Normal 0.1-0.6 [facility] Comment on above: Result Comment: BUCK Newman ETTING WITH IV Performed By: #### C BCDICherelle, CMET ####Unless otherwise noted, all testing performed by [address]CLIA: [id number] Director: Nikolay Irizarry M.D. Monocytes/100 leukocytes 6.2 % Normal [facility] Comment on above: Result Comment: BUCK Newman ETTING WITH IV Performed By: #### C BCDICherelle, CMET ####Unless otherwise noted, all testing performed by [address]CLIA: [id number] Director: Nikolay Irizarry M.D. Neutrophils 3.2 K/mcL Normal 1.2-6.9 [facility] Comment on above: Result Comment: BUCK Newman ETTING WITH IV Performed By: #### C BCDICherelle, CMET ####Unless otherwise noted, all testing performed by [place] [id number]: [id number] Director: Nikolay Irizarry M.D. Platelet mean volume (PMV) 8.2 fL Normal 7.0-10.6 [facility] Comment on above: Result Comment: BUCK Newman ETTING WITH IV Performed By: #### C BCDIF, CMET ####Unless otherwise noted, all testing performed by [address] [phone]: [id number] Director: Nikolay Irizarry M.D. Platelets 194 K/mcL Normal 162-402 [facility] Comment on above: Result Comment: BUCK Newman ETTING WITH IV Performed By: #### C BCDIF, CMET ####Unless otherwise noted, all testing performed by [address] [phone]: [id number] Director: Nikolay Irizarry M.D. Segmented Neut % 70.3 % Normal [facility] Comment on above: Result Comment: BUCK Newman ETTING WITH IV Performed By: #### C BCDIF, CMET ####Unless otherwise noted, all testing performed by [address] [phone]: [id number] Director: Nikolay Irizarry M.D. WBC (Leukocytes) 4.6 K/mcL Normal 3.4-10.6 [facility] Comment on above: Result Comment: BUCK Newman ETTING WITH IV Performed By: #### C BCDIF, CMET ####Unless otherwise noted, all testing performed by [address] [phone]: [id number] Director: Nikolay Irizarry M.D. CT ABDO,PELVIS IV CONTRAST O Farshad 04-22-2018 CT ABDO,PELVIS IV CONTRAST ONLY Final ReportAccession No: [id number] Performed: Apr 22 2018 12:30PMExamination: CT [...] DENIZ DELGADO M.D.Trans: mad : cc: Normal [facility] Comprehensive Metabolic Pane roberto carlos 04-22-2018 Alanine aminotransferase (ALT) 25 U/L Normal 14-65 [facility] Comment on above: Result Comment: BUCK Trent ETTING WITH IVThis test result might be falsely depressed or falsely elevated onsamples drawn from patients taking Sulfasalazine and Sulfapyridine.Venipuncture should occur prior to taking either of these drugs. Performed By: #### C BCDIF, CMET ####Unless otherwise noted, all testing performed by [address] [phone]: [id number] Director: Nikolay Irizarry M.D. Albumin 4.4 g/dL Normal 3.2-5.2 [facility] Comment on above: Result Comment: BUCK Trent ETTING WITH IV Performed By: #### C BCDIF, CMET ####Unless otherwise noted, all testing performed by [address] [phone]: [id number] Director: Nikolay Irizarry M.D. Alkaline phosphatase (ALP) 39 U/L Low 40-140 [facility] Comment on above: Result Comment: BUCK Trent ETTING WITH IV Performed By: #### C BCDIF, CMET ####Unless otherwise noted, all testing performed by [address] [phone]: [id number] Director: Nikolay Irizarry M.D. Aspartate aminotransferase (AST) 22 U/L Normal 0-45 [facility] Comment on above: Result Comment: BUCK Trent ETTING WITH IVThis test result might be falsely depressed or falsely elevated onsamples drawn from patients taking Sulfasalazine and Sulfapyridine.Venipuncture should occur prior to taking either of these drugs. Performed By: #### C BCDIF, CMET ####Unless otherwise noted, all testing performed by [address] [phone]: [id number] Director: Nikolay Irizarry M.D. Bilirubin (total) 0.9 mg/dL Normal 0.3-1.2 [facility] Comment on above: Result Comment: BUCK Trent ETTING WITH IV Performed By: #### C BCDIF, CMET ####Unless otherwise noted, all testing performed by [address] [phone]: [id number] Director: Nikolay Irizarry M.D. Calcium 9.3 mg/dL Normal 8.4-10.2 [facility] Comment on above: Result Comment: BUCK Trent ETTING WITH IV Performed By: #### C BCDIF, CMET ####Unless otherwise noted, all testing performed by [address] [phone]: [id number] Director: Nikolay Irizarry M.D. Chloride 104 mmol/L Normal 98-108 [facility] Comment on above: Result Comment: BUCK Trent ETTING WITH IV Performed By: #### C BCDIF, CMET ####Unless otherwise noted, all testing performed by [address] [phone]: [id number] Director: Nikolay Irizarry M.D. CO2 25 mmol/L Normal 21-32 [facility] Comment on above: Result Comment: BUCK Newman ETTING WITH IV Performed By: #### C BCDIF, CMET ####Unless otherwise noted, all testing performed by [address], [place] [phone]: [id number] Director: Nikolay Irizarry M.D. Creatinine 0.82 mg/dL Normal 0.40-1.10 [facility] Comment on above: Result Comment: RN G ETTING WITH IV Performed By: #### C ELLEN, CMET ####Unless otherwise noted, all testing performed by [address] [phone]: [id number] Director: Nikolay Irizarry M.D. eGFR (black) mL/min/{1.73_m2} Normal [facility] Comment on above: Result Comment: RN G ETTING WITH IVAfrican Citizen Of [place] GFR Calc Performed By: #### C ELLEN, CMET ####Unless otherwise noted, all testing performed by [address] [phone]: [id number] Director: Nikolay Irizarry M.D. eGFR (non-black) mL/min/{1.73_m2} Normal [facility] Comment on above: Result Comment: [...] ####Unless otherwise noted, all testing performed by [address] [phone]: [id number] Director: Nikolay Irizarry M.D. Glucose mass conc 81 mg/dL Normal 70-99 [facility] Comment on above: Result Comment: BUCK Trent ETTING WITH IVThis test result might be falsely depressed or falsely elevated onsamples drawn from patients taking Sulfasalazine and Sulfapyridine.Venipuncture should occur prior to taking either of these drugs. Performed By: #### C BCDIF, CMET ####Unless otherwise noted, all testing performed by [address] [phone]: [id number] Director: Nikolay Irizarry M.D. Potassium molar conc 4.1 mmol/L Normal 3.5-5.1 [facility] Comment on above: Result Comment: BUCK Newman ETTING WITH IV Performed By: #### C BCDIF, CMET ####Unless otherwise noted, all testing performed by [address] [phone]: [id number] Director: Nikolay Irizarry M.D. Protein 7.9 g/dL Normal 6.0-8.0 [facility] Comment on above: Result Comment: BUCK Newman ETTING WITH IV Performed By: #### C BCDIF, CMET ####Unless otherwise noted, all testing performed by [address] [phone]: [id number] Director: Nikolay Irizarry M.D. Sodium 136 mmol/L Normal 135-145 [facility] Comment on above: Result Comment: BUCK Trent ETTING WITH IV Performed By: #### C BCDIF, CMET ####Unless otherwise noted, all testing performed by [address] [phone]: [id number] Director: Nikolay Irizarry M.D. Urea nitrogen 10 mg/dL Normal 8-25 [facility] Comment on above: Result Comment: RN G ETTING WITH IV Performed By: #### C BCSILVINA, CMET ####Unless otherwise noted, all testing performed by [address] [phone]: [id number] Director: Nikolay Irizarry M.D. Test,Urine Qualon 04-22-2018 HCG.beta subunit ( test) Ql (U) Negative Normal Negative [facility] Comment on above: Result Comment: Rapi d [...] ####Unless otherwise noted, all testing performed by [address] [phone]: [id number] Director: Nikolay Irizarry M.D. Urinalysis, Routineon 2017 Bilirubin,Urine Negative Normal NEG;NEGATI VE [facility] Comment on above: Performed By: #### P REGUR, UA ####Unless otherwise noted, all testing performed by [address] [phone]: [id number] Director: Nikolay Irizarry M.D. Blood,Urine Negative Normal NEG;NEGATI VE [facility] Comment on above: Performed By: #### P REGUR, UA ####Unless otherwise noted, all testing performed by [facility] [phone]: [id number] Director: Nikolay Irizarry M.D. Ketone,Urine Negative Normal NEG;NEGATI VE [facility] Comment on above: Performed By: #### P REGUR, UA ####Unless otherwise noted, all testing performed by [address] [phone]: [id number] Director: Nikolay Irizarry M.D. Leuk.Esterase,Urine Negative Normal Negative [facility] Comment on above: Performed By: #### P REGUR, UA ####Unless otherwise noted, all testing performed by [address]CLIA: [id number] Director: Nikolay Irizarry M.D. Nitrite,Urine Negative Normal NEG;NEGATI VE [facility] Comment on above: Performed By: #### P REGUR, UA ####Unless otherwise noted, all testing performed by [address] [phone]: [id number] Director: Nikolay Irizarry M.D. Protein,Urine Negative Normal NEG;NEGATI VE [facility] Comment on above: Performed By: #### P REGUR, UA ####Unless otherwise noted, all testing performed by [address]8[address]CLIA: [id number] Director: Nikolay Irizarry M.D. Specific [place],Urine 1.028 Normal 1.003 -1.02 9 [facility] Comment on above: Performed By: #### P REGUR, UA ####Unless otherwise noted, all testing performed by [address] [phone]: [id number] Director: Nikolay Irizarry M.D. Squamous Epithelial 9 /HPF Normal 0-40 [facility] Comment on above: Performed By: #### P REGUR, UA ####Unless otherwise noted, all testing performed by [address] [phone]: [id number] Director: Nikolay Irizarry M.D. Urine, character Hazy Normal [facility] Comment on above: Performed By: #### P REGUR, UA ####Unless otherwise noted, all testing performed by [place] [phone]: [id number] Director: Nikolay Irizarry M.D. Urine, color Yellow Normal [facility] Comment on above: Performed By: #### P REGUR, UA ####Unless otherwise noted, all testing performed by [address] [phone]: [id number] Director: Nikolay Irizarry M.D. Urine, erythrocytes in sediment by area 1 /[HPF] Normal 0-5 [facility] Comment on above: Performed By: #### P REGUR, UA ####Unless otherwise noted, all testing performed by [address] [phone]: [id number] Director: Nikolay Irizarry M.D. Urine, glucose presence Negative Normal NEG;NEGATI VE [facility] Comment on above: Performed By: #### P REGUR, UA ####Unless otherwise noted, all testing performed by [address] [phone]: [id number] Director: Nikolay Irizarry M.D. Urine, leukocytes in sedmiment 2 /[HPF] Normal 0-5 [facility] Comment on above: Performed By: #### P REGUR, UA ####Unless otherwise noted, all testing performed by [address] [phone]: [id number] Director: Nikolay Irizarry M.D. Urine, pH 5.0 [pH] Normal 4.5-8.0 [facility] Comment on above: Performed By: #### P REGUR, UA ####Unless otherwise noted, all testing performed by [address] [phone]: [id number] Director: Nikolay Irizarry M.D. Urobilinogen,Urine < 2.0 Normal <2 [facility] Comment on above: Performed By: #### P REGUR, UA ####Unless otherwise noted, all testing performed by [address] [phone]: [id number] Director: Nikolay Irizarry M.D. Operation-Procedureon 2016 Operation-Procedure [address] [address]RDJJDEVYN DINERO [id number] [id number] 1982DATE 06/19/2017OPERATIVE REPORT / PROCEDURE NOTESURGEON MARIE [...] to PACU instable condition.NELIA RIZO 06/24/2017 13:35 [id number] 06/24/2017 14:08 ESC/MODLElectronically Signed By Cristine Andrew M.D. on 02 Jul 2017 13:09:10 GMT Normal [facility] HCG, Qualitativeon 7 HCG, Qualitative Negative Normal [facility] Comment on above: Result Comment: Nega tive: The result is less than or equal to 5 mIU/mL of HCG. Performed By: #### H CGQL ####Unless otherwise noted, all testing performed by [place] [address] [address] [place], [place] [phone]: [id number] Director: Nikolay Irizarry M.D. SURGon 06-19-2017 BMI [...] MD , Pathologist (Case signed 06/23/2017) Normal [facility] Type and Screenon 06-19-2017 Type and Screen Negative Normal [facility] Comment on above: Performed By: #### T YPSCR ####Unless otherwise noted, all testing performed by [place] [address], [place] [phone]: [id number] Director: Nikolay Irizarry M.D. Vital Signs Date Time Vital Sign Value Performing Clinician Facility 12-11-2023 15:22-0500 Body height 165.1 cm Melody Fuentes MD Work Phone: [facility] 12-11-2023 15:22-0500 Body mass index (BMI) [Ratio] 26.13 kg/m2 Melody Fuentes MD Work Phone: [facility] 12-11-2023 15:22-0500 Body weight 71.22 kg Melody Fuentes MD Work Phone: [facility] 12-11-2023 15:22-0500 Diastolic blood pressure 87 mm[Hg] Melody Fuentes MD Work Phone: [facility] 12-11-2023 15:22-0500 Heart rate 54 /min Melody Fuentes MD Work Phone: [facility] 12-11-2023 15:22-0500 Systolic blood pressure 146 mm[Hg] Melody Fuentes MD Work Phone: [facility] 12-10-2023 08:44-0500 Body height 165.1 cm [facility] 12-10-2023 08:44-0500 Body mass index (BMI) [Ratio] 26.16 kg/m2 [facility] 12-10-2023 08:44-0500 Body weight 71.31 kg [facility] 12-10-2023 08:44-0500 Diastolic blood pressure 68 mm[Hg] [facility] 02-15-2024 08:44-0500 Heart rate 48 /min [facility] 12-10-2023 08:44-0500 SaO2% (BldA) [Mass fraction] 98 % [facility] 12-10-2023 08:44-0500 Systolic blood pressure 128 mm[Hg] [facility] 09-15-2023 13:28-0500 Body height 165.[address] Nupur Garcia Work Phone: [facility] 09-15-2023 13:28-0500 Body mass index (BMI) [Ratio] 25.2 kg/m2 Dr. Nupur Garcia Work Phone: [facility] 09-15-2023 13:28-0500 Body temperature 97.2 [degF] Dr. Nupur Garcia Work Phone: [facility] 09-15-2023 13:28-0500 Body weight 68.[address] Nupur Garcia Work Phone: [facility] 09-15-2023 13:28-0500 Diastolic blood pressure 83 mm[Hg] Dr. Nupur Garcia Work Phone: [facility] 09-15-2023 13:28-0500 Heart rate 49 /min Dr. Nupur Garcia Work Phone: [facility] 09-15-2023 13:28-0500 Respiratory rate 20 /min Dr. Nupur Garcia Work Phone: [facility] 09-15-2023 13:28-0500 SaO2% (BldA) [Mass fraction] 100 % Dr. Nupur Garcia Work Phone: [facility] 09-15-2023 13:28-0500 Systolic blood pressure 135 mm[Hg] Dr. Nupur Garcia Work Phone: [facility] 08-06-2023 15:48-0400 Body height 165.[address] Nupur Garcia Work Phone: [facility] 08-06-2023 15:48-0400 Body mass index (BMI) [Ratio] 25.1 kg/m2 Dr. Nupur Garcia Work Phone: [facility] 08-06-2023 15:48-0400 Body weight 68.[address] Nupur Garcia Work Phone: [facility] 08-06-2023 15:48-0400 Diastolic blood pressure 68 mm[Hg] Dr. Nupur Garcia Work Phone: [facility] 08-06-2023 15:48-0400 Systolic blood pressure 122 mm[Hg] Dr. Nupur Garcia Work Phone: [facility] 07-28-2023 19:51-0400 Diastolic blood pressure 85 mm[Hg] [facility] 07-28-2023 19:51-0400 Heart rate 54 /min [facility] 07-28-2023 19:51-0400 Respiratory rate 16 /min [facility] 07-28-2023 19:51-0400 SaO2% (BldA) [Mass fraction] 97 % [facility] 07-28-2023 19:51-0400 Systolic blood pressure 131 mm[Hg] [facility] 07-28-2023 17:48-0400 Body height 165.1 cm [facility] 07-28-2023 17:48-0400 Body mass index (BMI) [Ratio] 25.4 kg/m2 [facility] 07-28-2023 17:48-0400 Body temperature 97.4 [degF] [facility] 07-28-2023 17:48-0400 Body weight 69.3 kg [facility] 06-02-2023 10:45-0400 Diastolic blood pressure 62 mm[Hg] [facility] 06-02-2023 10:45-0400 Heart rate 72 /min [facility] 06-02-2023 10:45-0400 Respiratory rate 18 /min [facility] 06-02-2023 10:45-0400 Systolic blood pressure 158 mm[Hg] [facility] 06-02-2023 09:11-0400 Body height 165.1 cm [facility] 06-02-2023 09:11-0400 Body mass index (BMI) [Ratio] 25 kg/m2 [facility] 06-02-2023 09:11-0400 Body temperature 96.6 [degF] [facility] 06-02-2023 09:11-0400 Body weight 68.22 kg [facility] 06-02-2023 09:11-0400 SaO2% (BldA) [Mass fraction] 98 % [facility] 03-27-2023 14:26-0400 Diastolic blood pressure 75 mm[Hg] Matty Phoenix MD Work Phone: [facility] 03-27-2023 14:26-0400 Heart rate 42 /min Matty Phoenix MD Work Phone: [facility] 03-27-2023 14:26-0400 Respiratory rate 16 /min Matty Phoenix MD Work Phone: [facility] 03-27-2023 14:26-0400 SaO2% (BldA) [Mass fraction] 98 % Matty Phoenix MD Work Phone: [facility] 03-27-2023 14:26-0400 Systolic blood pressure 123 mm[Hg] Matty Phoenix MD Work Phone: [facility] 03-27-2023 14:04-0400 Body temperature 97 [degF] Matty Phoenix MD Work Phone: [facility] 03-27-2023 12:16-0400 Body height 165.1 cm Matty Phoenix MD Work Phone: [facility] 03-27-2023 12:16-0400 Body mass index (BMI) [Ratio] 25.79 kg/m2 Matty Phoenix MD Work Phone: [facility] 03-27-2023 12:16-0400 Body weight 70.31 kg Matty Phoenix MD Work Phone: [facility] 02-27-2023 09:00-0400 Body mass index (BMI) [Ratio] 25.79 kg/m2 [facility] 02-27-2023 09:00-0400 Body weight 70.31 kg [facility] 02-19-2023 13:28-0400 Body height 165.1 cm Matty Phoenix MD Work Phone: [facility] 02-19-2023 13:28-0400 Body mass index (BMI) [Ratio] 26.13 kg/m2 Matty Phoenix MD Work Phone: [facility] 02-19-2023 13:28-0400 Body temperature 98.6 [degF] Matty Phoenix MD Work Phone: [facility] 02-19-2023 13:28-0400 Body weight 71.22 kg Matty Phoenix MD Work Phone: [facility] 02-19-2023 13:28-0400 Diastolic blood pressure 78 mm[Hg] Matty Phoenix MD Work Phone: [facility] 02-19-2023 13:28-0400 Heart rate 67 /min Matty Phoenix MD Work Phone: [facility] 02-19-2023 13:28-0400 Systolic blood pressure 124 mm[Hg] Matty Phoenix MD Work Phone: [facility] 08-21-2022 13:24-0400 Diastolic blood pressure 40 mm[Hg] Dr. Fede Ellison Work Phone: [facility] Work Phone: 08-21-2022 13:24-0400 Heart rate 62 /min Dr. Fede Ellison Work Phone: [facility] Work Phone: 08-21-2022 13:24-0400 Respiratory rate 16 /min Dr. Fede Ellison Work Phone: [facility] Work Phone: 08-21-2022 13:24-0400 SaO2% (BldA) [Mass fraction] 95 % Dr. Fede Ellison Work Phone: [facility] Work Phone: 08-21-2022 13:24-0400 Systolic blood pressure 129 mm[Hg] Dr. Fede Ellison Work Phone: [facility] Work Phone: 08-21-2022 13:02-0400 Body height 165.[address] Fede Ellison Work Phone: [facility] Work Phone: 08-21-2022 13:02-0400 Body mass index (BMI) [Ratio] 25 kg/m2 Dr. Fede Ellison Work Phone: [facility] Work Phone: 08-21-2022 13:02-0400 Body temperature 98.2 [degF] Dr. Fede Ellison Work Phone: [facility] Work Phone: 08-21-2022 13:02-0400 Body weight 68.[address] Fede Ellison Work Phone: [facility] Work Phone: 07-23-2022 13:50-0400 Body height 165.[address] Fede Ellison Work Phone: [facility] Work Phone: 07-23-2022 13:50-0400 Body mass index (BMI) [Ratio] 25.1 kg/m2 Dr. Fede Ellison Work Phone: [facility] Work Phone: 07-23-2022 13:50-0400 Body weight 68.[address] Fede Ellison Work Phone: [facility] Work Phone: 07-23-2022 13:50-0400 Diastolic blood pressure 81 mm[Hg] Dr. Fede Ellison Work Phone: [facility] Work Phone: 07-23-2022 13:50-0400 Heart rate 49 /min Dr. Fede Ellison Work Phone: [facility] Work Phone: 07-23-2022 13:50-0400 Respiratory rate 16 /min Dr. Fede Ellison Work Phone: [facility] Work Phone: 07-23-2022 13:50-0400 Systolic blood pressure 121 mm[Hg] Dr. Fede Ellison Work Phone: [facility] Work Phone: 07-09-2022 14:39-0400 Body mass index (BMI) [Ratio] 25.6 kg/m2 Dr. Fede Ellison Work Phone: [facility] Work Phone: 07-09-2022 14:39-0400 Body weight 69.[address] Fede Ellison Work Phone: [facility] Work Phone: 07-09-2022 14:39-0400 Diastolic blood pressure 76 mm[Hg] Dr. Fede Ellison Work Phone: [facility] Work Phone: 07-09-2022 14:39-0400 Heart rate 41 /min Dr. Fede Ellison Work Phone: [facility] Work Phone: 07-09-2022 14:39-0400 Respiratory rate 16 /min Dr. Fede Ellison Work Phone: [facility] Work Phone: 07-09-2022 14:39-0400 Systolic blood pressure 118 mm[Hg] Dr. Fede Ellison Work Phone: [facility] Work Phone: 01-16-2022 16:11-0400 Body mass index (BMI) [Ratio] 25.02 kg/m2 Osmar Garcia MD Work Phone: [facility] 01-16-2022 16:11-0400 Body temperature 97.39 [degF] Osmar Garcia MD Work Phone: [facility] 01-16-2022 16:11-0400 Body weight 70.31 kg Osmar Garcia MD Work Phone: [facility] 01-16-2022 16:11-0400 Diastolic blood pressure 93 mm[Hg] Osmar Garcia MD Work Phone: [facility] 01-16-2022 16:11-0400 Heart rate 45 /min Osmar Garcia MD Work Phone: [facility] 01-16-2022 16:11-0400 Systolic blood pressure 149 mm[Hg] Osmar Garcia MD Work Phone: [facility] 12-31-2021 08:04-0500 Body height 165.1 cm Tammy Silva MANAGER [employer] Work Phone: [facility] 12-31-2021 08:04-0500 Body mass index (BMI) [Ratio] 25.96 kg/m2 Tammy Silva CNP Work Phone: [facility] 12-31-2021 08:04-0500 Body weight 70.76 kg Tammy Silva CNP Work Phone: [facility] 11-14-2021 15:09-0500 Diastolic blood pressure 73 mm[Hg] Clementenicole Landis MD Work Phone: [facility] 11-14-2021 15:09-0500 Heart rate 47 /min Clemente Boby SCHUSTER Work Phone: [facility] 11-14-2021 15:09-0500 Systolic blood pressure 114 mm[Hg] Clemente Boby SCHUSTER Work Phone: [facility] 11-14-2021 15:08-0500 Body mass index (BMI) [Ratio] 25.99 kg/m2 Clementenicole Landis MD Work Phone: [facility] 11-14-2021 15:08-0500 Body weight 70.85 kg Clementenicole Landis MD Work Phone: [facility] 10-28-2021 15:13-0500 Diastolic blood pressure 83 mm[Hg] Clemente Boby SCHUSTER Work Phone: [facility] 10-28-2021 15:13-0500 Heart rate 49 /min Clemente Boby SCHUSTER Work Phone: [facility] 10-28-2021 15:13-0500 Systolic blood pressure 145 mm[Hg] Clemente Boby SCHUSTER Work Phone: [facility] 10-28-2021 15:11-0500 Body mass index (BMI) [Ratio] 25.96 kg/m2 Clemente Boby SCHUSTER Work Phone: [facility] 10-28-2021 15:11-0500 Body weight 70.76 kg Clemente Boby SCHUSTER Work Phone: [facility] 10-17-2021 13:38-0500 Body mass index (BMI) [Ratio] 25.02 kg/m2 Osmar Garcia MD Work Phone: [facility] 10-17-2021 13:38-0500 Body temperature 97.81 [degF] Osmar Garcia MD Work Phone: [facility] 10-17-2021 13:38-0500 Body weight 70.31 kg Osmar Garcia MD Work Phone: [facility] 10-17-2021 13:38-0500 Diastolic blood pressure 91 mm[Hg] Osmar Garcia MD Work Phone: [facility] 10-17-2021 13:38-0500 Heart rate 56 /min Osmar Garcia MD [facility] 10-17-2021 13:38-0500 Systolic blood pressure 155 mm[Hg] Osmar Garcia MD Work Phone: [facility] 09-03-2021 13:49-0500 Diastolic blood pressure 111 mm[Hg] Clementenicole Landis MD Work Phone: [facility] 09-03-2021 13:49-0500 Heart rate 52 /min Clementenicole Landis MD Work Phone: [facility] 09-03-2021 13:49-0500 Systolic blood pressure 185 mm[Hg] Clemente Boby SCHUSTER Work Phone: [facility] 09-03-2021 13:48-0500 Body mass index (BMI) [Ratio] 25.46 kg/m2 Clemente Boby SCHUSTER Work Phone: [facility] 09-03-2021 13:48-0500 Body weight 69.4 kg Clemente Boby SCHUSTER Work Phone: [facility] 05-07-2021 14:27-0400 Body height 167.6 cm Matty Donaldson MD Work Phone: [facility] 05-07-2021 14:27-0400 Body mass index (BMI) [Ratio] 24.53 kg/m2 Matty Donaldson MD Work Phone: [facility] 05-07-2021 14:27-0400 Body weight 68.95 kg Matty Donaldson MD Work Phone: [facility] 05-07-2021 14:27-0400 Diastolic blood pressure 62 mm[Hg] Matty Donaldson MD Work Phone: [facility] 05-07-2021 14:27-0400 Systolic blood pressure 108 mm[Hg] Matty Donaldson MD Work Phone: [facility] 01-17-2021 15:25-0400 BMI (Body Mass Index) 24.86 kg/m2 Matty Mendoza [facility] 01-17-2021 15:25-0400 Body Temperature 98.29 [degF] [facility] [employer] [facility] 01-17-2021 15:25-0400 Body weight 69.85 kg [facility] [employer] s tem 01-17-2021 15:25-0400 BP Diastolic 78 mm[Hg] Matty Donaldson [facility] [employer] [facility] 01-17-2021 15:25-0400 BP Systolic 110 mm[Hg] [facility] 01-17-2021 15:25-0400 Height 167.6 cm Matty [facility] 01-01-2021 12:00-0500 BP Diastolic 76 mm[Hg] [facility] 01-01-2021 12:00-0500 BP Systolic 162 mm[Hg] [facility] 01-01-2021 12:00-0500 Pulse (Heart Rate) 44 /min [facility] 01-01-2021 12:00-0500 Pulse Oximetry 100 % [facility] 01-01-2021 12:00-0500 Respiratory Rate 16 /min [facility] 01-01-2021 11:27-0500 Body Temperature 98.4 [degF] [facility] 01-01-2021 08:27-0500 BMI (Body Mass Index) 25.34 kg/m2 [facility] 01-01-2021 08:27-0500 Body weight 71.22 kg [facility] 01-01-2021 08:27-0500 Height 167.6 cm [facility] 12-10-2020 14:32-0500 BMI (Body Mass Index) 25.34 kg/m2 [facility] 12-10-2020 14:32-0500 Body Temperature 98.01 [degF] [facility] 12-10-2020 14:32-0500 Body weight 71.22 kg [facility] 12-10-2020 14:32-0500 BP Diastolic 87 mm[Hg] [facility] 12-10-2020 14:32-0500 BP Systolic 152 mm[Hg] [facility] 12-10-2020 14:32-0500 Pulse (Heart Rate) 50 /min [facility] 12-03-2020 10:48-0500 BP Diastolic 87 mm[Hg] Enedina Troncoso [facility] 12-03-2020 10:48-0500 BP Systolic 143 mm[Hg] Enedina Troncoso [facility] 12-03-2020 10:48-0500 Pulse (Heart Rate) 40 /min Enedina Troncoso [facility] 12-03-2020 10:48-0500 Pulse Oximetry 98 % Enedina Troncoso [facility] 12-03-2020 10:48-0500 Respiratory Rate 16 /min Enedina Troncoso [facility] 12-03-2020 08:12-0500 BMI (Body Mass Index) 25.79 kg/m2 Enedina Troncoso [facility] 12-03-2020 08:12-0500 Body Temperature 98.2 [degF] Enedina Troncoso [facility] 12-03-2020 08:12-0500 Body weight 70.31 kg Enedina [facility] 12-03-2020 08:12-0500 Height 165.1 cm [facility] 11-15-2019 16:00-0500 BMI (Body Mass Index) 25.5 kg/m2 [facility] 11-15-2019 16:00-0500 Body Temperature 98.6 [degF] [facility] 11-15-2019 16:00-0500 Body weight 71.67 kg [facility] 11-15-2019 16:00-0500 BP Diastolic 56 mm[Hg] [facility] 11-15-2019 16:00-0500 BP Systolic 133 mm[Hg] [facility] 11-15-2019 16:00-0500 Height 167.6 cm [facility] 11-15-2019 16:00-0500 Pulse (Heart Rate) 53 /min [facility] 11-15-2019 16:00-0500 Pulse Oximetry 99 % [facility] 11-15-2019 16:00-0500 Respiratory Rate 16 /min [facility] 10-07-2019 13:48-0500 Body Temperature 97.81 [degF] Melody Fuentes [facility] 10-07-2019 13:48-0500 BP Diastolic 76 mm[Hg] Melody Fuentes [facility] 10-07-2019 13:48-0500 BP Systolic 143 mm[Hg] Melody Gina [facility] 10-07-2019 13:48-0500 Pulse (Heart Rate) 53 /min Melody Fuentes [facility] 10-07-2019 13:48-0500 Pulse Oximetry 98 % Melody Fuentes [facility] 10-07-2019 13:48-0500 Respiratory Rate 16 /min Melody Fuentes [facility] 10-07-2019 08:54-0500 BMI (Body Mass Index) 25.68 kg/m2 Melody Fuentes [facility] 10-07-2019 08:54-0500 Body weight 70 kg Melody Fuentes [facility] 10-07-2019 08:54-0500 Height 165.1 cm Melody Fuentes [facility] 08-08-2019 12:48-0400 BMI (Body Mass Index) 25.79 kg/m2 Tammy Silva [facility] 08-08-2019 12:48-0400 Body weight 70.31 kg Tammy Frasercock [facility] 08-08-2019 12:48-0400 Height 165.1 cm Tammy Silva [facility] 04-12-2019 15:38-0400 BMI (Body Mass Index) 25.13 kg/m2 Lalitha Iraheta [facility] 04-12-2019 15:38-0400 BP Diastolic 85 mm[Hg] Lalitha Iraheta [facility] 04-12-2019 15:38-0400 BP Systolic 150 mm[Hg] Lalitha Iraheta [facility] 04-12-2019 15:38-0400 Height 165.1 cm Lalitha Iraheta [facility] 04-12-2019 15:38-0400 Pulse (Heart Rate) 48 /min Lalitha Iraheta [facility] 04-12-2019 15:38-0400 Weight 68.49 kg Lalitha Iraheta [facility] 03-23-2019 12:06-0400 Body Temperature 98.49 [degF] [facility] 03-23-2019 12:06-0400 BP Diastolic 71 mm[Hg] [facility] 03-23-2019 12:06-0400 BP Systolic 119 mm[Hg] [facility] 03-23-2019 12:06-0400 Pulse (Heart Rate) 44 /min [facility] 03-23-2019 12:06-0400 Pulse Oximetry 98 % [facility] 03-23-2019 12:06-0400 Respiratory Rate 14 /min [facility] 03-22-2019 15:47-0400 Systolic blood pressure [facility] 03-22-2019 11:23-0400 BMI (Body Mass Index) 25.24 kg/m2 [facility] 03-22-2019 11:23-0400 Weight 68.81 kg [facility] 03-22-2019 09:59-0400 Height 165.1 cm [facility] Encounters Encounter Date Encounter Type Care Provider Facility Start: 07-13-2025 End: 07-13-2025 Patient encounter procedure Rob Segovia DO -[facility] Work Phone: Start: 07-13-2025 End: 07-13-2025 ambulatory Rob Segovia [facility] Start: 11-17-2024 End: 11-17-2024 [facility] Start: 10-17-2024 End: 10-17-2024 ambulatory Riana Dossi Facility:[facility] Start: 09-27-2024 ambulatory Riana Dossi [facility] Start: 08-16-2024 End: 08-16-2024 [facility] Start: 08-11-2024 End: 08-11-2024 ambulatory [facility] Facility:[facility] Start: 08-06-2024 End: 08-06-2024 ambulatory [facility] Facility:[facility] Start: 06-03-2024 End: 06-03-2024 Postop follow up visit related to original px Melody Fuentes MD Work Phone: [facility] Comment on above: Status post total ri ght knee replacement (Primary Dx) Start: 06-03-2024 End: 06-04-2024 Refill Kalina Sommer LPN [facility] Comment on above: Status post total ri ght knee replacement (Primary Dx) Start: 04-22-2024 End: 04-22-2024 Office outpatient visit 10 minutes Melody Fuentes MD Work Phone: [facility] Comment on above: Status post total ri ght knee replacement (Primary Dx) Start: 04-22-2024 End: 04-22-2024 ambulatory NUPUR GARCIA [facility] Start: 02-12-2024 End: 02-12-2024 Postop follow up visit related to original px Melody Fuentes MD Work Phone: [facility] Comment on above: Status post total ri ght knee replacement (Primary Dx) Start: 02-12-2024 End: 02-16-2024 Refill Melody Fuentes MD Work Phone: [facility] Comment on above: Status post total ri ght knee replacement (Primary Dx) Start: 01-15-2024 End: 01-15-2024 Postop follow up visit related to original px Melody Fuentes MD Work Phone: [facility] Comment on above: Status post total ri ght knee replacement (Primary Dx) Start: 01-15-2024 End: 01-15-2024 Refill Kalina Sommer LPN [facility] Comment on above: Status post total ri ght knee replacement (Primary Dx) Start: 01-08-2024 End: 01-08-2024 Postop follow up visit related to original px Melody Fuentes MD Work Phone: [facility] Comment on above: Status post total ri ght knee replacement (Primary Dx) Start: 01-08-2024 End: 01-12-2024 ambulatory MELODY FUENTES [facility] Ambulatory Start: 01-06-2024 Orders Only Kalina garay LPN [facility] Comment on above: Status post total ri ght knee replacement (Primary Dx) Start: 01-04-2024 Orders Only Tammy Silva CNP Work Phone: [facility] Comment on above: S/P total knee arthr oplasty, right Start: 01-01-2024 Documentation procedure Kylah M Bisho p LEATHER SCRAPER [facility] Start: 12-28-2023 End: 12-28-2023 ambulatory [facility] Start: 12-21-2023 End: 12-21-2023 ambulatory [facility] Start: 12-11-2023 End: 12-11-2023 Office outpatient visit 15 minutes Melody Fuentes MD Work Phone: [facility] Comment on above: Osteoarthritis of ri ght knee, unspecified osteoarthritis type (Primary Dx) Start: 12-11-2023 End: 12-11-2023 ambulatory [facility] Start: 12-10-2023 End: 12-14-2023 ambulatory [facility] Start: 12-10-2023 End: 12-10-2023 Patient encounter procedure Melody Fuentes MD Work Phone: [facility] Comment on above: S/P right knee arthr oscopy (Primary Dx); Knee instability, right; Osteoarthritis of right knee, unspecified osteoarthritis type; Hypertension, unspecified type Start: 12-08-2023 End: 12-12-2023 [facility] Start: 12-08-2023 End: 12-08-2023 ambulatory [place] Missy Silva MANAGER AIR Work Phone: [facility] Comment on above: Primary osteoarthrit is of right knee (Primary Dx) Start: 12-01-2023 End: 12-05-2023 ambulatory [facility] Start: 12-01-2023 End: 12-01-2023 ambulatory [place] Missy Silva MANAGER AIR [facility] Comment on above: Primary osteoarthrit is of right knee (Primary Dx) Start: 11-26-2023 End: 11-30-2023 ambulatory [facility] Start: 11-26-2023 End: 11-26-2023 ambulatory [place] Missy Silva MANAGER AIR Work Phone: [facility] Comment on above: Primary osteoarthrit is of right knee (Primary Dx) Start: 11-24-2023 End: 11-28-2023 [facility] Start: 11-24-2023 End: 11-24-2023 ambulatory Tammy Silva MANAGER AIR Work Phone: [facility] Comment on above: Primary osteoarthrit is of right knee (Primary Dx) Start: 11-19-2023 End: 11-23-2023 ambulatory [facility] Start: 11-19-2023 End: 11-19-2023 ambulatory Tammy Anne Silva MANAGER AIR Work Phone: [facility] Comment on above: Osteoarthritis of ri ght knee, unspecified osteoarthritis type Start: 11-12-2023 End: 11-16-2023 ambulatory NUPUR GARCIA [facility] Start: 11-12-2023 End: 11-12-2023 Office outpatient visit 15 minutes Tammy Boltonck MANAGER AIR Work Phone: [facility] Comment on above: S/P right knee arthr oscopy (Primary Dx); Knee instability, right; Osteoarthritis of right knee, unspecified osteoarthritis type Start: 09-15-2023 End: 09-15-2023 Emergency department patient visit Dr. Nupur Garcia Work Phone: [facility] Work Phone: Start: 09-01-2023 End: 09-01-[address] Nupur Garcia Work Phone: [facility] Work Phone: Start: 08-06-2023 End: 08-06-[address] Nupur Garcia Work Phone: [facility] Work Phone: Start: 08-06-2023 End: 08-06-[address] Nupur Garcia Work Phone: [facility] Work Phone: Start: 08-06-2023 End: 08-06-[address] Nupur Garcia Work Phone: [facility] Work Phone: Start: 07-28-2023 End: 07-28-2023 Emergency department patient visit [facility] Work Phone: Start: 06-02-2023 End: 06-02-2023 Emergency department patient visit [facility] Work Phone: Start: 05-22-2023 End: 05-22-2023 ambulatory [facility] Work Phone: Start: 05-22-2023 End: 05-22-2023 Patient encounter procedure [facility] Start: 05-20-2023 End: 05-20-2023 Patient encounter procedure Tammy Silva [facility] Work Phone: [facility] Comment on above: S/P right knee arthr oscopy (Primary Dx); Knee instability, right Start: 04-15-2023 Telephone encounter Melani horta PA-C Work Phone: [facility] Comment on above: Results (CT) Start: 04-10-2023 End: 04-11-2023 ambulatory [facility] Start: 04-10-2023 End: 04-10-2023 Subsequent hospital visit by physician [facility] Exam Room [address] [facility] [address] Comment on above: Epigastric pain Start: 04-02-2023 End: 04-02-2023 ambulatory [facility] Start: 03-27-2023 Telephone encounter Melani horta PA-C Work Phone: [facility] Comment on above: Other Start: 03-27-2023 End: 03-27-2023 ambulatory [facility] Start: 03-27-2023 End: 03-27-2023 Subsequent hospital visit by physician Matty Phoenix MD Work Phone: [facility] Endoscopy Comment on above: Dysphagia Start: 03-17-2023 End: 03-18-2023 ambulatory [facility] Start: 03-04-2023 Orders Only Tammy Silva MANAGER AIR Work Phone: [facility] Start: 02-27-2023 End: 02-28-2023 ambulatory [facility] Start: 02-27-2023 End: 02-27-2023 Subsequent hospital visit by physician [facility] Exam Room [facility] Nuclear Medicine Comment on above: Epigastric pain Start: 02-23-2023 Telephone encounter Matty maurice MD Work Phone: [facility] Comment on above: Endoscopy Start: 02-19-2023 End: 02-19-2023 ambulatory [facility] Start: 02-19-2023 End: 02-19-2023 Office outpatient new 45 minutes Matty Phoenix MD Work Phone: [facility] Comment on above: Epigastric pain (Love juana Dx); LUQ pain; Chronic constipation; Esophageal dysphagia Start: 02-13-2023 End: 02-13-2023 ambulatory [facility] Work Phone: Start: 02-13-2023 End: 02-13-2023 Patient encounter procedure [facility], [place] Start: 02-10-2023 End: 02-10-2023 ambulatory [facility] Work Phone: Start: 02-10-2023 End: 02-10-2023 Patient encounter procedure [facility]Outpatient Breast Imaging Start: 10-14-2022 Non-patient / Non-visit Dr. Danitza Ellison Work Phone: [facility] Start: 10-14-2022 End: 10-14-[address] Fede Ellison Work Phone: [facility] Work Phone: Start: 10-14-2022 End: 10-14-[address] Fede Ellison Work Phone: [facility]Cardi[facility] Start: 09-13-2022 End: 09-13-[address] Fede Ellison Work Phone: [facility] Work Phone: Start: 09-13-2022 End: 09-13-[address] Fede Ellison Work Phone: [facility] Start: 09-04-2022 End: 09-04-[address] Fede Ellison Work Phone: [facility] Work Phone: Start: 09-04-2022 End: 09-04-[address] Fede Ellison Work Phone: [facility] Start: 08-28-2022 End: 08-28-[address] Fede Ellison Work Phone: [facility] Work Phone: Start: 08-28-2022 End: 08-28-[address] Fede Ellison Work Phone: [facility] Start: 08-25-2022 Non-patient / Non-visit Dr. Danitza Ellison Work Phone: [facility] Start: 08-21-2022 Non-patient / Non-visit Dr. Danitza Ellison Work Phone: [facility] Start: 08-21-2022 End: 08-21-[address] Fede Ellison Work Phone: [facility] Work Phone: Start: 08-21-2022 End: 08-21-[address] Fede Ellison Work Phone: [facility] Start: 07-23-2022 End: 07-23-[address] Fede Ellison Work Phone: [facility] Start: 07-22-2022 End: 07-22-[address] Fede Ellison Work Phone: [facility] Work Phone: Start: 07-22-2022 End: 07-22-[address] Fede Ellison Work Phone: [facility] Start: 07-09-2022 End: 07-09-[address] Fede Ellison Work Phone: [facility] Start: 03-19-2022 End: 03-19-2022 Office outpatient visit 10 minutes Tammy Silva CNP Work Phone: [facility] Comment on above: S/P right knee arthr oscopy (Primary Dx); Knee instability, right Start: 01-16-2022 End: 01-16-2022 Office outpatient visit 15 minutes Osmar Garcia MD Work Phone: [facility] Comment on above: Essential hypertensi on (Primary Dx) Start: 12-31-2021 End: 12-31-2021 Patient encounter procedure Tammy Silva CNP Work Phone: [facility] Comment on above: S/P right knee arthr oscopy (Primary Dx) Start: 12-26-2021 End: 12-26-2021 Office outpatient new 30 minutes Yuriy Estes DO Work Phone: [facility] Comment on above: Constipation, unspec ified constipation type (Primary Dx); Irritable bowel syndrome with diarrhea Start: 11-14-2021 End: 11-14-2021 Office outpatient visit 15 minutes Clemente Landis MD Work Phone: [facility] Comment on above: Essential hypertensi on (Primary Dx); Bradycardia Start: 11-14-2021 Refill Natalya Chawla RN [facility] Comment on above: Medication Refill Start: 10-28-2021 End: 10-28-2021 Office outpatient visit 25 minutes Clemente Landis MD Work Phone: [facility] Comment on above: Bradycardia (Primary Dx); Essential hypertension; SOB (shortness of breath) on exertion Start: 10-17-2021 End: 10-17-2021 Office outpatient visit 15 minutes Osmar Garcia MD Work Phone: [facility] [place] Comment on above: Essential hypertensi on (Primary Dx) Start: 10-06-2021 Documentation procedure Clemente Landis MD Work Phone: [facility] Start: 09-12-2021 End: 09-12-2021 Orders Only Natalya Chawla RN [facility] Comment on above: Hypertension, unspec ified type (Primary Dx) Arrived Start: 09-12-2021 Orders Only Clemente Gonzalez Work Phone: [facility] Start: 09-03-2021 End: 09-03-2021 Office outpatient new 45 minutes Clemente Landis MD Work Phone: [facility] Comment on above: Bradycardia (Primary Dx); Near syncope; Essential hypertension; SOB (shortness of breath) on exertion Start: 05-07-2021 End: 05-07-2021 Postop follow up visit related to original px Matty Donaldson MD [facility] Comment on above: Postoperative examin ation (Primary Dx) Start: 01-17-2021 End: 01-17-2021 Office outpatient new 30 minutes Matty Donaldson Work [facility] Comment on above: Menorrhagia with reg ular cycle (Primary Dx); Dysmenorrhea; Fibroids Start: 01-01-2021 End: 01-01-2021 Subsequent hospital visit by physician Wilder Hale Work Phone: [facility] Comment on above: Generalized abdomina l pain Start: 12-17-2020 Patient encounter status Matty Donaldson MD Work Phone: [facility] Start: 12-10-2020 End: 12-10-2020 Office outpatient visit 15 minutes Osmar Garcia Work Phone: [facility] Comment on above: Gastroesophageal ref lux disease with esophagitis without hemorrhage (Primary Dx); LGI bleed Start: 12-03-2020 End: 12-03-2020 Emergency department patient visit Enedina Troncoso Work Phone: [facility] Emergency Department Comment on above: Acute gastritis, pre sence of bleeding unspecified, unspecified gastritis type (Primary Dx) Start: 11-15-2019 End: 11-15-2019 Office outpatient new 30 minutes Mary Resendiz Work Phone: [facility] Comment on above: Acute URI (Primary D x); Sore throat Start: 10-25-2019 End: 10-25-2019 Postop follow up visit related to original px Hilton Camarillo Work Phone: [facility] Comment on above: S/P right knee arthr oscopy (Primary Dx) Start: 10-07-2019 End: 10-07-2019 Subsequent hospital visit by physician Melody Fuentes Work Phone: [facility] Comment on above: S/P arthroscopy of r ight knee (Primary Dx); Primary osteoarthritis of right knee; Primary osteoarthritis of left knee; Primary osteoarthritis of right knee; Primary osteoarthritis of left knee Start: 08-17-2019 End: 08-17-2019 Documentation procedure Tammy Silva Work Phone: [facility] Start: 08-08-2019 End: 08-08-2019 Office outpatient visit 25 minutes Tammy Silva Work Phone: [facility] Comment on above: Primary osteoarthrit is of right knee (Primary Dx); Primary osteoarthritis of left knee Start: 08-01-2019 End: 08-01-2019 Subsequent hospital visit by physician Tammy Silva Work Phone: [facility] Comment on above: Knee pain, unspecifi ed chronicity, unspecified laterality Start: 06-08-2019 End: 06-08-2019 Patient encounter procedure Dionysios Klironomos Work Phone: [facility] Comment on above: Paresthesia Start: 06-06-2019 End: 06-06-2019 Patient encounter procedure Dionysios Klironomos Work Phone: [facility] Comment on above: Paresthesia Start: 06-01-2019 End: 06-01-2019 Patient encounter procedure Dionysios Klironomos Work Phone: [facility] Comment on above: Paresthesia Start: 05-30-2019 End: 05-30-2019 Patient encounter procedure Dionysios Klironomos Work Phone: [facility] Comment on above: Paresthesia Start: 05-25-2019 End: 05-25-2019 Patient encounter procedure Dionysios Klironomos Work Phone: [facility] Comment on above: Paresthesia Start: 05-23-2019 End: 05-23-2019 Patient encounter procedure Dionysios Klironomos Work Phone: [facility] Comment on above: Paresthesia Start: 05-13-2019 End: 05-13-2019 Patient encounter procedure Dionysios Klironomos Work Phone: [facility] Comment on above: Paresthesia Start: 05-04-2019 End: 05-04-2019 Patient encounter procedure Waqar Alcocer Work Phone: [facility] Comment on above: Paresthesia Start: 04-12-2019 End: 04-12-2019 Office outpatient new 30 minutes Lalitha Iraheta Work Phone: [facility] Comment on above: Paresthesia Start: 03-24-2019 End: 03-24-2019 Patient encounter procedure Juana Das Work Phone: [facility] Comment on above: Syncope, unspecified syncope type Start: 03-23-2019 End: 03-23-2019 Evaluation and management of inpatient Waqar Alcocer Work Phone: [facility] EEG Comment on above: Arrived Start: 03-22-2019 [facility] [place] Start: 03-22-2019 End: 03-23-2019 Emergency department patient visit Shelton Weeks Work Phone: [facility] Medical Observation Comment on above: Closed head injury, initial encounter (Primary Dx); Contusion of right eyelid, initial encounter; Paresthesia Start: 04-22-2018 End: 04-22-2018 Emergency department patient visit Bg Fan Facility:[place] Start: 06-19-2017 End: 06-19-2017 Ambulatory Cristine Andrew Facility:[place] Procedures Date Procedure Procedure Detail Performing Clinician [...] on above: Test not performed Start: 07-13-[address] antibody measurement Dr. Nupur sharpe MD Work [...] major jt/bursa w/o us Tammy Missy Silva MANAGER [employer] Work Phone: Start: 02-27-2023 Hepatobil syst imag [...] aspir&/inj major jt/bursa w/o us Tammy Silva MANAGER [employer] Work Phone: Start: 09-12-2021 Basic metabolic panel [...] Phone: Start: 03-22-2019 Hemoglobin A1c/Hemoglobin.total in Blood [employer] Work Phone: Start: 03-22-2019 Hepatic function 2000 panel - Serum or Plasma Shelton Weeks Work Phone: Start: 03-22-2019 INR in Platelet poor plasma by Coagulation assay Shelton Weeks Work Phone: Start: 03-22-2019 Lipase [Enzymatic activity/volume] in Serum or Plasma Shelton Weeks Work Phone: Start: 03-22-2019 End: 03-22-2019 Lipid 1996 panel - Serum or Plasma [employer] Work Phone: Start: 03-22-2019 Prothrombin time [facility] Start: 03-22-2019 Troponin measurement Shelton Weeks Work Phone: Plan of Treatment Date Care Activity Detail Author Start: 02-03-2033 DTaP/Tdap/Td Vaccines (2 - Td or Tdap) DTaP/Tdap/Td Vaccines (2 - Td or Tdap) [facility] Start: 02-03-2033 Tetanus vaccination Tetanus: Every 10yrs [facility] Start: 01-25-2032 Zoster Vaccines (1 of 2) Zoster Vaccines (1 of 2) [facility] Start: 07-13-2025 Gastrin [Mass/volume] in Serum or Plasma [facility] Start: 07-13-2025 Immunoglobulin measurement [facility] Start: 07-13-2025 Laboratory test [facility] Start: 07-13-2025 [facility] Start: 07-13-2025 Protein measurement [facility] Start: 07-13-2025 Radionuclide gastric emptying study [facility] Start: 06-26-2024 Influenza vaccination [facility] Start: 06-03-2024 End: 06-03-2024 Patient encounter procedure 06/03/2024 1:15 PM EDT Office Visit [facility] [address] [facility] [facility] [address] [place] [phone] Melody Fuentes MD [address] [facility] [place] [address] [facility] Start: 04-01-2024 End: 04-01-2024 Follow-up encounter 04/01/2024 1:15 PM EDT Follow-Up [facility] [address] [facility] [place] [address] Melody Fuentes MD [address] [facility] [place] [address] [facility] Start: 03-22-2024 Lipid panel Lipid Panel [facility] Start: 02-12-2024 End: 02-12-2024 Follow-up encounter 02/12/2024 4:00 PM EDT Follow-Up [facility] [address] [facility] [place] [address] Melody Fuentes MD [address] [place] [address] [facility] Start: 02-11-2024 Screening for malignant neoplasm of breast Mammogram [facility] Start: 01-15-2024 End: 01-15-2024 Follow-up encounter 01/15/2024 3:30 PM EDT Follow-Up [facility] [address] [address] Melody Fuentes MD [address] [facility] [place] [address] [facility] Start: 01-08-2024 End: 01-08-2024 Follow-up encounter 01/08/2024 3:45 PM EDT Follow-Up [facility] [address] [place] [address] Melody Fuentes MD [address] [place] [place] [address] [facility] Start: 12-28-2023 End: 12-28-2023 Admission to same day surgery center 12/28/2023 9:31 AM EST - 12/28/2023 11:35 AM EST Surgery [facility] [address] [place] [address] Melody Fuentes MD [address] [place] [address] Right total knee replacement Robotic [facility] Comment on above: Right total knee replacement Robotic Start: 12-28-2023 End: 12-28-2023 ARTHROPLASTY KNEE TOTAL ROBOTIC ARTHROPLASTY KNEE TOTAL ROBOTIC Osteoarthritis of right knee, unspecified osteoarthritis type Knee instability, right S/P right knee arthroscopy 12/28/2023 9:31 AM EST [facility] Start: 12-28-2023 Subsequent hospital visit by physician 12/28/2023 9:31 AM EST Hospital Encounter [facility] [address] [place] [address] Melody Fuentes MD [address] [place] [address] [facility] Start: 12-21-2023 End: 12-21-2023 Patient encounter procedure 12/21/2023 8:00 AM EST Office Visit [facility] [address] [place] [address] Melody Fuentes MD [address] [place] [address] Corrine Heller MD [facility] [place] [address] [facility] Start: 12-11-2023 End: 12-11-[address] [facility] Start: 12-11-2023 End: 12-11-2023 Patient encounter procedure 12/11/2023 3:15 PM EST Surgical Consult [facility] [address] [place] [address] Melody Fuentes MD [address] [place] [address] [facility] Start: 12-10-2023 End: 12-10-2023 Patient encounter procedure [facility] Preadmission Testing Start: 12-08-2023 End: 12-08-2023 ambulatory 12/08/2023 4:[address] [facility] [address] [place] [address] Tammy Silva, MANAGER AIR [address] [place] [address] Geovanni Elam, PT [facility] Start: 12-03-2023 End: 12-03-2023 ambulatory 12/03/2023 4:[address] [facility] [address] [place] [address] Tammy Silva, MANAGER AIR [address] [place] [address] Geovanni Elam, PT [facility] Start: 12-01-2023 End: 12-01-2023 ambulatory [facility] Start: 11-26-2023 End: 11-26-2023 ambulatory 11/26/2023 4:[address] [facility] [address] [place] [address] Tammy Silva, MANAGER AIR [address] [place] [address] Geovanni Elam, PT [facility] Start: 11-24-2023 End: 11-24-2023 ambulatory 11/24/2023 4:[address] [facility] [address] [place] [address] Tammy Silva, MANAGER AIR [address] [place] [address] Geovanni Elam, PT Discharge Disposition: Home [facility] Start: 11-19-2023 End: 11-19-2023 ambulatory 11/19/2023 4:[address] [facility] [address] [place] [address] Tammy Silva, MANAGER AIR [address] [place] [address] Geovanni Elam, PT Discharge Disposition: Home [facility] Start: 09-15-2023 [facility] Start: 06-26-2023 COVID-19 Vaccine ( season) COVID-19 Vaccine ( season) [facility] Start: 06-26-2023 Influenza vaccination [facility] Start: 04-02-2023 End: 04-02-2023 Patient encounter procedure 04/02/2023 Office Visit General Surgery Matty Phoenix MD [address] [place] [address] [facility] Advanced Laproscopic Surgery Start: 03-27-2023 End: 03-27-2023 Admission to same day surgery center 03/27/2023 Surgery Gastroenterology Matty Phoenix MD [address] [place] [address] EGD WITH BIOPSY [13563 (CPT )] [facility] Endoscopy Comment on above: EGD WITH BIOPSY [45956 (CPT )] Start: 03-27-2023 End: 03-27-2023 Egd transoral biopsy single/multiple [facility] Gastroenterology Start: 03-27-2023 Subsequent hospital visit by physician 03/27/2023 Hospital Encounter Gastroenterology Matty Phoenix MD [address] [place] [address] [facility] Start: 03-17-2023 End: 03-17-2023 Patient encounter procedure [facility] Imaging Start: 02-27-2023 Subsequent hospital visit by physician 02/27/2023 Hospital Encounter Radiology [facility] Nuclear Medicine Start: 02-19-2023 End: 02-20-2024 NM Gallbladder Views W cholecystokinin and W radionuclide IV NM hepatobiliary scan with pharm agent w/cck Imaging Routine Epigastric pain Expected: 02/19/2023, Expires: 02/20/2024 [employer] Comment on above: Expected: 02/19/2023, Expires: 4 Start: 02-19-2023 End: 02-20-2024 RF Upper gastrointestinal tract and Small bowel Single view W contrast PO FL upper GI double contrast w KUB Imaging Routine Epigastric pain Esophageal dysphagia Expected: 02/19/2023, Expires: 02/20/2024 [facility] Comment on above: Expected: 02/19/2023, Expires: 4 Start: 02-19-2023 End: 02-20-2024 US Abdomen US abdomen complete Imaging Routine Epigastric pain Expected: 02/19/2023, Expires: 02/20/2024 [employer] Work Phone: Comment on above: Expected: 02/19/2023, Expires: 4 Start: 08-21-2022 Oxygen therapy [facility] Work Phone: Start: 08-21-2022 [facility] Work Phone: Start: 06-26-2022 Influenza vaccination Sequential Influenza Vaccine (Season Ended) [facility] Start: 05-13-2022 End: 05-13-2022 Patient encounter procedure [facility] ARMY MANAGER Start: 04-06-2022 Screening for malignant neoplasm of cervix CERVICAL CANCER SCREENING DISCUSSION [facility] Start: 2022 Screening for malignant neoplasm of breast Mammogram [facility] Start: 01-16-2022 End: 01-16-2022 Patient encounter procedure 01/16/2022 Office Visit Internal Medicine Osmar Garcia MD [address] [place] [address] [facility] Internal Medicine [place] Start: 11-14-2021 End: 11-14-2021 Patient encounter procedure 11/14/2021 Office Visit Cardiology Clemente Landis MD [address] [place] [address] [facility] Start: 11-07-2021 COVID-19 Vaccine (4 - Booster for Moderna series) COVID-19 Vaccine (4 - Booster for Moderna series) [facility] Start: 11-07-2021 COVID-19 Vaccine (4 - Moderna series) COVID-19 Vaccine (4 - Moderna series) [facility] Start: 10-28-2021 End: 10-28-2021 Patient encounter procedure 10/28/2021 Office Visit Cardiology Clemente Landis MD [address] [place] [address] [facility] Start: 10-15-2021 End: 10-15-2021 Patient encounter procedure 10/15/2021 Office Visit Cardiology Clemente Landis MD [address] [place] [address] [facility] Start: 09-12-2021 End: 09-12-2022 Basic metabolic 2000 panel - Serum or Plasma Basic metabolic panel Lab Routine Hypertension, unspecified type Expected: 09/12/2021, Expires: 09/12/2022 [facility] Work Phone: Comment on above: Expected: 09/12/2021, Expires: Start: 07-06-2021 COVID-19 VACCINE (3 - Booster for Moderna series) COVID-19 VACCINE (3 - Booster for Moderna series) [facility] Start: 06-26-2021 Influenza vaccination [facility] Start: 06-14-2021 Screening for malignant neoplasm of cervix CERVICAL CANCER SCREENING DISCUSSION [facility] Start: 06-05-2021 COVID-19 Vaccine (3 - Booster for Moderna series) COVID-19 Vaccine (3 - Booster for Moderna series) [facility] Start: 04-16-2021 Hospital Encounter 04/16/2021 Hospital Encounter Multispecialty Matty Donaldson MD [address] [place] [address] Menorrhagia with regular cycle [facility] Per[facility] Comment on above: Menorrhagia with regular cycle Start: 06-26-2020 Influenza vaccination INFLUENZA VACCINE (#1) [facility] Start: 06-26-2020 Influenza vaccination given Sequential Influenza Vaccine (#1) [facility] Start: 10-25-2019 End: 10-25-2019 Follow-Up 10/25/2019 Follow-Up Sports Medicine Hilton Camarillo MD [address] [place] [address] [phone] [facility] Start: 10-07-2019 End: 10-07-2019 Hospital Encounter [facility] Comment on above: Primary osteoarthritis of right knee; Primary osteoarthritis of left knee Bilateral knee arthr oscopy with screw removal Start: 09-27-2019 End: 09-27-2019 Surgical Consult 09/27/2019 Surgical Consult Sports Medicine Melody Fuentes MD [address] [place] [address] [phone] [facility] Start: 08-08-2019 End: 08-08-2019 Office Visit 08/08/2019 Office Visit Sports Medicine Tammy Silva, MANAGER AIR [address] [facility] [place] [address] [phone] [facility] Start: 06-26-2019 Influenza vaccination INFLUENZA VACCINE (#1) [facility] Start: 06-26-2019 Influenza vaccination given [facility] Start: 06-15-2019 End: 06-15-2019 Treatment [facility] Start: 06-13-2019 End: 06-13-2019 Treatment [facility] Start: 06-08-2019 End: 06-08-2019 Treatment 06/08/2019 Treatment Lalitha Esqueda MD [address] [place] [address] [phone] Kiran Barroso, PT [facility] Start: 06-06-2019 End: 06-06-2019 Treatment 06/06/2019 Treatment Lalitha Esqueda MD [address] [place] [address] [phone] Kiran Barroso, PT [facility] Start: 06-01-2019 End: 06-01-2019 Treatment [facility] Start: 05-30-2019 End: 05-30-2019 Treatment 05/30/2019 Treatment Lalitha Esqueda MD [address] [place] [address] [phone] Kiran Barroso, PT [facility] Start: 05-25-2019 End: 05-25-2019 Treatment 05/25/2019 Treatment Lalitha Esqueda MD [address] [place] [address] [phone] Kiran Barroso, PT [facility] Start: 05-23-2019 End: 05-23-2019 Treatment 05/23/2019 Treatment Rehabilitation Lalitha Iraheta MD [address] [place] [address] [phone] Kiran Barroso PT [facility] Start: 05-10-2019 End: 05-10-2019 Office Visit 05/10/2019 Office Visit Cardiology Denver Prater MD [address] [place] [address] [phone] [facility] Start: 03-24-2019 End: 03-24-2019 Appointment 03/24/2019 Appointment Cardiology Juana Das MD [address] [place] [address] [phone] [facility] Start: 01-25-2012 Screening for malignant neoplasm of cervix [facility] Start: 2003 Screening for malignant neoplasm of cervix [facility] Start: 2001 Third diphtheria, tetanus and acellular pertussis (DTaP) vaccination TDAP (ADULT) [facility] Start: 01-25-2000 Diabetes mellitus screening Diabetes Screening [facility] Start: 01-25-2000 Hepatitis C antibody, confirmatory test Hepatitis C Screening [facility] Start: 01-25-2000 Hepatitis C screening Hepatitis C Screening [facility] Start: 01-25-2000 Tetanus vaccination TETANUS [facility] Start: 1998 COVID-19 VACCINE (1) COVID-19 VACCINE (1) [facility] Start: 1997 HIV screening [facility] Start: 1995 HIV screening HIV SCREENING DISCUSSION [facility] Start: 1994 Adolescent depression screening assessment [facility] Start: 1994 Depression screening using PHQ-9 (Patient Health Questionnaire 9) score [facility] Start: 1987 COVID-19 VACCINE (1) COVID-19 VACCINE (1) [facility] Start: 1985 History and physical examination, annual for health maintenance Wellness Visit [facility] Start: 1983 MMR Vaccines (1 of 1 - Standard series) MMR Vaccines (1 of 1 - Standard series) [facility] Start: 1983 Varicella vaccination Varicella Vaccines (1 of 2 - 2-dose childhood series) [facility] Start: 1982 Depression screening using PHQ-9 (Patient Health Questionnaire 9) score DEPRESSION SCREENING (PHQ9) [facility] Start: 1982 Hepatitis B Vaccines (1 of 3 - 3-dose series) Hepatitis B Vaccines (1 of 3 - 3-dose series) [facility] Start: 1982 Hepatitis C antibody, confirmatory test HEPATITIS C VIRUS SCREENING [facility] Start: 1982 HIV screening HIV Screening [facility] Start: 1982 Lipid panel Lipid Panel [facility] Start: 1982 Screening for malignant neoplasm of cervix PAP SMEAR [facility] Start: 1982 Tetanus vaccination [facility] Antibody to lupus [place] protein measurement [facility] Antibody to SS-A measurement [facility] Beef IgE Ab [Units/volume] in Serum [facility] Beef IgE Ab [Units/volume] in Serum [facility] End: 03-24-2019 Cardiac event recording Cardiac event monitor Cardiac Services Routine Syncope, unspecified syncope type Once for 1 Occurrences starting 03/24/2019 until 03/24/2019 [facility] Comment on above: Once for 1 Occurrences starting 03/24/20 19 until 03/24/2019 End: 09-04-2022 Cardiac event recording Cardiac event monitor Cardiac Services Routine Bradycardia Near syncope 1 Occurrences starting 09/03/2021 until 09/04/2022 [facility] Comment on above: 1 Occurrences starting 09/03/2021 until 09/04/2022 Chitobioside IgA Ab [Units/volume] in Serum or Plasma by Immunoassay [facility] Chocolate IgE Ab [Units/volume] in Serum [facility] Chocolate IgE Ab [Units/volume] in Serum [facility] Codfish IgE Ab [Units/volume] in Serum [facility] Colonoscopy flx dx w/collj spec when pfrmd COLONOSCOPY DIAGNOSTIC LGI bleed [facility] [place] IgE Ab [Units/volume] in Serum [facility] [place] IgE Ab [Units/volume] in Serum [facility] Cow milk IgE Ab [Units/volume] in Serum [facility] Cow milk IgE Ab [Units/volume] in Serum [facility] End: 04-10-2023 CT Abdomen and Pelvis W contrast IV [employer] Work Phone: Comment on above: Once for 1 Occurrences starting 04/10/20 until 04/10/2023 [facility] Heart and [place] ry arteries W contrast IV [facility] Work Phone: DNA double strand Ab [Units/volume] in Serum [facility] End: 09-04-2022 Echocardiography Echocardiogram complete Echocardiography Routine SOB (shortness of breath) on exertion 1 Occurrences starting 09/03/2021 until 09/04/2022 [employer] Work Phone: Comment on above: 1 Occurrences starting 09/03/2021 until 09/04/2022 Elastase.pancreatic [Presence] in Stool [facility] Food [facility] Gliadin peptide IgA Ab [Units/volume] in Serum [facility] Gliadin peptide IgA Ab [Units/volume] in Serum [facility] Gliadin peptide IgG Ab [Units/volume] in Serum [facility] Gliadin peptide IgG Ab [Units/volume] in Serum [facility] HCG ( test) Ql (U) POC , Urine Point of Care Testing Routine 10/07/2019 8:40 AM EST [employer] IgA [Mass/volume] in Serum or Plasma [facility] IgE [Units/volume] i n Serum or Plasma [facility] IgG [Mass/volume] in Serum or Plasma [facility] IgM [Mass/volume] in Serum or Plasma [facility] Lactoferrin [Presenc e] in Stool by Immunoassay [facility] Laminaribioside IgG Ab [Units/volume] in Serum or Plasma by Immunoassay [facility] Lipid 1996 panel - S arely or Plasma [facility] Work Phone: Mannobioside IgG Ab [Units/volume] in Serum or Plasma by Immunoassay [facility] Measurement of funga l antibody [facility] Measurement of immunoglobulin A in serum specimen [facility] Measurement of immunoglobulin A in serum specimen [facility] Methicillin resistan t Staphylococcus aureus [Presence] in Unspecified specimen by Organism specific culture MRSA Culture/Screen Microbiology Routine S/P right knee arthroscopy Knee instability, right 12/10/2023 7:39 AM EST [employer] Work Phone: Neutrophil cytoplasm ic Ab.classic [Units/volume] in Serum [facility] Neutrophil cytoplasm ic Ab.perinuclear.atypical [Titer] in Serum by Immunofluorescence [facility] P-ANCA measurement [facility] Patient Education [facility] Work Phone: Patient referral [facility] Work Phone: Peanut IgE Ab [Units/volume] in Serum [facility] Peanut IgE Ab [Units/volume] in Serum [facility] Pork IgE Ab [Units/volume] in Serum [facility] Pork IgE Ab [Units/volume] in Serum [facility] Bixby IgE Ab [Units/volume] in Serum [facility] Shrimp IgE Ab [Units/volume] in Serum [facility] Soybean IgE Ab [Units/volume] in Serum [facility] Soybean IgE Ab [Units/volume] in Serum [facility] End: 09-04-2022 Stress test only, exercise Stress test only, exercise Cardiac Services Routine Bradycardia Near syncope 1 Occurrences starting 09/03/2021 until 09/04/2022 [facility] Comment on above: 1 Occurrences starting 09/03/2021 until 09/04/2022 Tissue exam [facility] [employer] Work Phone: Comment on above: Release Upon Ordering for 1 Occurrences starting 03/27/2023 Tissue transglutamin ase IgA Ab [Units/volume] in Serum [facility] Tissue transglutamin ase IgA Ab [Units/volume] in Serum [facility] Tissue transglutamin ase IgG Ab [Units/volume] in Serum [facility] Tuna IgE Ab [Units/volume] in Serum [facility] US Pelvic Transabdom inal And Transvaginal With Color Flow US Pelvic Transabdominal And Transvaginal With Color Flow Imaging STAT 12/03/2020 12:32 PM EST [facility] Wheat IgE Ab [Units/volume] in Serum [facility] Wheat IgE Ab [Units/volume] in Serum [facility] Whole Egg IgE Ab [Units/volume] in Serum [facility] Whole Egg IgE Ab [Units/volume] in Serum [facility] Payers Date Payer Category Payer Self-pay 2023 Unknown [id number] 2014 Unknown [id number] 2014 Unknown [id number] 1. [id number]15 2014 Unknown [id number] 1. 2.840.667431.1.13.385.2.7.3.585061.315 2014 Unknown 1.2.840.160252. 1.13.385.2.7.3.850495.315 1982 Unknown [id number] 2.16.8 40.1.790583.3.579.2.900 1982 Unknown [id number] 2.16. 840.1.815939.3.579.2.903 1982 Unknown [id number] 2.16. 840.1.229282.3.579.2.903 1982 Unknown [id number] 2.16. 840.1.275056.3.579.2.903 1982 Unknown [id number] 2.16. 840.1.813472.3.579.2.903 1982 Unknown [id number] 2.16. 840.1.127855.3.579.2.903 1982 Unknown [id number] 2.16. 840.1.972734.3.579.2.903 1982 Unknown [id number] 2.16. 840.1.444056.3.579.2.903 1982 Unknown [id number] 2.16. 840.1.824211.3.579.2.903 1982 Unknown [id number] 2.16. 840.1.803173.3.579.2.903 1982 Unknown [id number] 2.16. 840.1.866881.3.579.2.903 1982 Unknown [id number] 2.16. 840.1.172887.3.579.2.903 1982 Unknown [id number] 2.16. 840.1.616775.3.579.2.903 1982 Unknown [id number] 2.16. 840.1.961630.3.579.2.903 1982 Unknown [id number] 2.16. 840.1.182566.3.579.2.903 1982 Unknown [id number] 2.16. 840.1.733569.3.579.2.903 1982 Unknown [id number] 2.16. 840.1.916105.3.579.2. 1982 Unknown [id number] 2.16. 840.1.068206.3.579.2.3 1980 Unknown [id number] 2.16. 840.1.958437.3.579.2. 1982 Unknown [id number] 2.16. 840.1.776553.3.579.2.903 Unknown [id number] 2.16.8 40.1.985811.3.579.2.462 Unknown [id number] 2.16.8 40.1.235079.3.579.2.462 Unknown [id number] 2.16.8 40.1.759294.3.579.2.462 Unknown [id number] 2.16.8 40.1.844345.3.579.2.462 Unknown [id number] 2.16.8 40.1.147258.3.579.2.462 Unknown [id number] 2.16.8 40.1.173519.3.579.2.462 Unknown [id number] 2.16.8 40.1.902008.3.579.2.462 Unknown [id number] 2.16.8 40.1.749128.3.579.2.462 Social History Date Type Detail Facility Start: 03-22-2019 End: 07-13-2025 Tobacco smoking status NHIS Never smoker [facility] Start: 03-22-2019 Alcohol Comment occasional-- s tates drinking 4 beers last night [facility] Start: 1980 [facility] Start: 06-08-2019 End: 12-08-2023 Alcohol intake Current drinker of alcohol (finding) [facility] Start: 12-03-2020 End: 12-10-2023 Tobacco use and exposure Never used [facility] Start: 12-21-2021 End: 04-10-2023 Exposure to SARS-CoV-2 (event) Not sure [facility] Start: 12-17-2020 Alcohol Comment occ [facility] Start: 01-17-2021 History SDOH Alcohol Frequency 2 [facility] Start: 01-17-2021 History SDOH Alcohol Std Drinks 1 [facility] Start: 01-17-2021 History SDOH Social Connections Living 3 [facility] Start: 01-17-2021 History SDOH Financial 4 [facility] Start: 01-17-2021 Alcohol Comment consumes socially [facility] Start: 09-03-2021 End: 06-03-2024 Alcohol intake [facility] Start: 07-23-2022 End: 09-15-2023 Tobacco smoking status NHIS Unknown if ever smoked [facility] Start: 1980 Sex Assigned At Female [facility] Start: 02-17-2023 Alcohol Comment OCCASIONALLY [facility] Start: 03-20-2022 End: 06-03-2024 Tobacco use panel [facility] Start: 08-08-2019 Gender identity Identifies as female gender (finding) [facility] Start: 08-08-2019 Sexual orientation Heterosexual (fin ding) [facility] Start: 12-10-2023 End: 06-03-2024 Alcohol intake Ex-drinker (finding) [facility] Start: 12-10-2023 Alcohol [facility] NE[facility]ATED: Highlighted row [facility] Medical Equipment Procedure Code Equipment Code Equipment Origin al Text Equipment Identifier Dates 1 Screw [id number] Start: 10-07-2019 Comment on above: Description: 1 screw removed Component Sz3 Fe m Cr Rt Cementless Beaded W/Pa Triathlon - [id number] U, [id number] FDA Start: 12-28-2023 Baseplate Sz2 Tibial Tritanium Triathlon - [id number], [id number] FDA Start: 12-28-2023 Insert Sz2-10 Tibial Cr X3 Triathlon [id number]-[id number] - [id number] ()[id number] [id number], [id number] FDA Start: 12-28-2023 Patella 29mm Asymmetric Metal-Backed Tritanium Triathlon - [id number] ()[id number] ([id number] 1, [id number] FDA Start: 12-28-2023 Goals Date Patient Goal Desired Activity /State Mental Status Date Assessment Result Facility 08-21-2022 Cognitive function Voice/Name [facility] Work Phone: Clinical Notes 05-07-2021 to 07-13-2025 Note Date & Type Note Facility 07-13-2025 Progress note [facility] 07-13-2025 Progress note Note Date/Time July 13, 2025 2:22pm [facility] [address] [address] OFFICE VISIT Date of Service: 07/13/25 MR#: [id number] Acct: [id number] Name: DEVYN CORONA Rep #: [id number] : 1980 Provider: Rob Segovia DO Age/Sex: 45/F Location: [facility] Status: Signed Intake Vital Signs 03/28/24 13:24 [...] concerns at this time. Capsule consent signed. [facility] Medical History [place] (dyspnea on exertion) Fatigue [...] to the office today for initial consult. *[facility] established 07.13.25 pt reports she began [...] high-fat, dairy). Alleviating Factors:?no significant relief from ajfp-bwh-zdsgnpx medications. Passing gas or a bowel movement [...] Cosigner Signature: Date (if applicable) CC: ~ [facility] [employer] Work Phone: 1(768) 801-711608-09-2024 NoteShe comes in today for followup of [...] checkup. AUTHENTICATED BY MELODY FUENTES, ON 06/04/2024 10:14:44[facility]06-29-2024 Jeanette Corona comes in today for [...] weeks. AUTHENTICATED BY MELODY FUENTES, ON 04/24/2024 09:19:22[facility]04-19-2024 Telephone encounter Note* Telephone Encounter - Kylah Arora LPN - 02/12/2024 4:46 PM EDT Patient requested refill for pain medication. Surgery 3/4 right TKR, last fill 01/15. [id number] Miscellaneous Notes* Telephone Encounter - Kylah Arora LPN - 02/12/2024 4:46 PM EDT Patient requested refill for pain medication. Surgery 3/4 right TKR, last fill 01/15. documented in this [id number] History of Present illness Narrative* Tammy Silva CNP - 01/04/2024 4:41 PM EDT Patient contacted office for refills on her pain medication and muscle relaxer. Ok'd per Dr. Fuentes, will call those in to the pharmacy. She is to call the office with any questions documented in this [id number] History of Present illness Narrative* Kylah Arora LPN - 01/01/2024 3:37 PM EST Teressa from [facility] called patient is doing wonderful she would like to d/c her from and haveher go to op therapy. I LVM asking Teressa to continue one more week if possible. documented in this [id number] Note* Quick Note - Britney Rolle RN - 12/10/2023 9:53 AM EST Pt established goals at [facility] Short term goal: Walk w/o pain tank terminal gauger goal: Walk 5 miles Pain goal: 05/04 [id number] Miscellaneous Notes* Quick Note - Britney Rolle RN - 12/10/2023 9:53 AM EST Pt established goals at [facility] Short term goal: Walk w/o pain tank terminal gauger goal: Walk 5 miles Pain goal: 05/04 [...] as Advil, Motrin, Ibuprofen, Naproxen, Aleve, Dominique Sweet, Pepto-Bismol, Anacin, Diclofenac, Voltaren, Daypro, Etodolac, Ketoprofen, Piroxicam, Relafen, Nabumetone, etc. Also discontinue Vitamin C, Vitamin E, [place]-3 Fatty Acid, Fish Oil or Lovaza, and [...] them to the hospital. Patient Instructions for [facility]: Prior to surgery: Surgeon's office will contact you with the scheduled time of your surgery. You may use the [employer] parking available at the Main Entrance One [...] any makeup or lotions. Remove all nail kittitian for surgeries involving extremities. Please remember to bring both your insurance card and a photo ID with you on the day of surgery. After your surgery: If you are having outpatient surgery - you must have a licensed laundry route driver to take you home. The expectation is that this laundry route driver will remain at the hospital for [...] the following: Ascites Fluid restriction: CHF, ESRD, Kenbridge's, Insulin pump for blood glucose control difficulty swallowing Neurological disease NPO due to alternative nutrition or IV nutrition Achalasia Severe gastroparesis Hiatal Hernia Severe GERD Partial or Total gastrectomy Gastric resection History of whipple procedure requiring jejunostomy tube placement Pt is a candidate for carb loading drink process. 3-8oz boost breeze given with instructions documented in this [id number] History of Present illness Narrative* Donna Monroe [...] with her , Michael, [facility] steps and a handrail on the left to enter. He will assist the patient after surgery. The bedroom and bathroom are on the second floor. There is also a full bath on the first floor. Thelaundry is in the basement. The bathroom has a walk-in shower with a seat. The commode is standard height. Devyn Corona wants to have [place], [facility], or [facility]. A referral will be [...] Up: Referral was made to Loco at [facility] [place]. She will review the referral. P: [phone], F: [phone]. Addendum 12/11/23 @ 5583: Received a call from Teressa at [facility]. She indicated that she received the referral and they would check the patients benefits and call us back as to whether or not they could accept the referral. FARRAH Herrera Assessment and Background Information: Living Arrangements: Spouse/significant other Support Systems: Spouse/significant other Type of Residence: Private residence Prior to Admission Home Care Services: No documented in this [id number] Instructions* Patient Instructions* Maddy Gaytan RN - [...] as Advil, Motrin, Ibuprofen, Naproxen, Aleve, Dominique Sweet, Pepto-Bismol, Anacin, Diclofenac, Voltaren, Daypro, Etodolac, Ketoprofen, Piroxicam, Relafen, Nabumetone, etc. Also discontinue Vitamin C, Vitamin E, [place]-3 Fatty Acid, Fish Oil or Lovaza, and [...] them to the hospital. Patient Instructions for [facility]: Prior to surgery: Surgeon's office will contact you with the scheduled time of your surgery. You may use the [employer] parking available at the Main Entrance One [...] any makeup or lotions. Remove all nail kittitian for surgeries involving extremities. Please remember to bring both your insurance card and a photo ID with you on the day of surgery. After your surgery: If you are having outpatient surgery - you must have a licensed laundry route driver to take you home. The expectation is that this laundry route driver will remain at the hospital for the duration of your procedure. You are advised to have a family member with you for at least 24 hours after being under Anesthesia. If you have sleep apnea and have a CPAP/BIPAP mask, please bring it with you the day of surgery. documented in this [id number] Note* Pre-Procedure Instructions - Maddy Gaytan RN [...] as Advil, Motrin, Ibuprofen, Naproxen, Aleve, Dominique Sweet, Pepto-Bismol, Anacin, Diclofenac, Voltaren, Daypro, Etodolac, Ketoprofen, Piroxicam, Relafen, Nabumetone, etc. Also discontinue Vitamin C, Vitamin E, [place]-3 Fatty Acid, Fish Oil or Lovaza, and [...] them to the hospital. Patient Instructions for [facility]: Prior to surgery: Surgeon's office will contact you with the scheduled time of your surgery. You may use the [employer] parking available at the Main Entrance One [...] any makeup or lotions. Remove all nail kittitian for surgeries involving extremities. Please remember to bring both your insurance card and a photo ID with you on the day of surgery. After your surgery: If you are having outpatient surgery - you must have a licensed laundry route driver to take you home. The expectation is that this laundry route driver will remain at the hospital for [...] the following: Ascites Fluid restriction: CHF, ESRD, Kenbridge's, Insulin pump for blood glucose control difficulty swallowing Neurological disease NPO due to alternative nutrition or IV nutrition Achalasia Severe gastroparesis Hiatal Hernia Severe GERD Partial or Total gastrectomy Gastric resection History of whipple procedure requiring jejunostomy tube placement Pt is a candidate for carb loading drink process. 3-8oz boost breeze given with instructions [id number] History of Present illness Narrative* Geovanni Elam, PT - 12/08/2023 4:45 PM EST [facility] DAILY TREATMENT NOTE Today's Date [...] visit 4: 4:42 - 5:26 Therapeutic Exercise (28885) Parameters scifit 5' lvl 4 Intervention calf [...] Visit: Discharge Geovanni Elam PT State License, [id number] documented in this [id number] History of Present illness Narrative* Geovanni Elam, GEETHA - 12/01/2023 4:45 PM EST [facility] DAILY TREATMENT NOTE Today's Date [...] visit 3: 4:46 - 5:28 Therapeutic Exercise (40117) Parameters scifit 5' lvl 4 Intervention calf [...] as tolerated Geovanni Elam PT State License, [id number] documented in this [id number] History of Present illness Narrative* Geovanni Elam, PT - 11/26/2023 4:45 PM EST [facility] DAILY TREATMENT NOTE Today's Date [...] visit 2: 4:50 - 5:28 Therapeutic Exercise (23503) Parameters scifit 5' lvl 3 Intervention calf [...] as tolerated Geovanni Elam PT State License, [id number] documented in this [id number] History of Present illness Narrative* rTish Adhikari PTA - 11/24/2023 4:45 PM EST [facility] DAILY TREATMENT NOTE Today's Date [...] Prehab Notes visit 1: 4:43-5:20 Therapeutic Exercise (95304) Intervention -- Parameters scifit 5' lv 2.5 [...] pain control Trish Adhikari PTA STATE LICENSE, [id number] documented in this [id number] History of Present illness Narrative* Geovanni Elam PT - 11/19/2023 4:45 PM EST [facility] Evaluation Today's Date 11/19/2023 Patient [...] Premorbid Activity Level: very active Social Support: Scientologist, social, or cultural considerations to be made aware of before starting treatment: No Home Environment Current Home Environment: Setup: multi-level house Activities of Daily Living: independent with all Instrumental Activities of Daily Livingto be assessed Sleep Assessment Preferred sleep position: supine Sleep disturbance: Sleep Disturbance Red Flags: None Comments: Barriers to Care: None Scientologist, social, or cultural considerations to be made [...] Treatments: Physical Therapy Exercise Log - 11/19/23 4055 OTHER Precautions/Contraindications Supervising PT: Mat - Right TKR Prehab Notes Eval: 4:45 - 5:15 Therapeutic Exercise (10918) Intervention progress as tolerated: Parameters scifit / [...] with HEP in 1 week. 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 Pt was also educated on treatment diagnosis, POC, and frequency/duration of treatment. Geovanni Elam, PT State License, [id number] documented in this [id number] History of Present illness Narrative* Tammy Silva, PANCHO - 11/12/2023 4:15 PM EST [facility] [address] [facility] [address] [facility] [address] Chief Complaint Patient presents with Right Knee [...] present Imaging: R Knee: Prior ACL repair. Afcsvcur-gy-tvqweh degeneration without acute fracture or dislocation most [...] needed prior to hersurgery. documented in this [id number] Discharge summary Author Can Kimble [facility] July 28, 2023 9:04pm Note Date/Time July 28, 2023 6: 07pm [facility] Medical Records Department [address] [place] [address] Emergency Department Summary 07/28/23 MR#: [id number] Acct: [id number] Name: DEVYN CORONA Rep #:[id number] : 1980 43 From: Can Kimble MD [...] 75.7 H Lymph % (Auto) 14.1 L [place] % (Auto) 7.8 Eos % (Auto) 1.9 [...] Clarity Clear Urine pH 7.0 Ur Specific [place] 1.010 Urine Protein Negative Urine Glucose (UA) [...] your Primary Care Provider. Call [facility] ([phone]) or report to the closest Emergency Room. Call 911 if necessary. 07/28/232103 <Electronically signed by Can Kimble MD> Cosigner Signature (if applicable): CC: Dr. Nupur Garcia MD ~ Signed [facility] Work Phone: 1(847) 628-430207-27-2023 History of Present illness Narrative* Tammy Silva, [facility] - 05/21/2023 9:21 PM EDTAssociated Order(s): LG [...] CNP Authorized by: Tammy Silva CNP CPT 03708 - Large Joint Arthrocentesis: Consent given by: [...] complications Tammy Silva CNP documented in this [id number] Telephone encounter Note* Telephone Encounter - Melani Beauchamp PA-C - 04/15/2023 9:57 AM EDT Spoke to patient and relayed results of CT - unremarkable. She states that she is better, but stillhaving gut issues. States that Dr. Phoenix referred her to a functional medicine provider, and she will work with them to continue evaluation. Otherwise, no questions/concerns at this time. F/u PRN. [id number] Miscellaneous Notes* Telephone Encounter - Melani Beauchamp [...] this time. F/u PRN. documented in this [facility]06-08-2023 [facility] Advanced Laparoscopic Surgery, GERD [...] pain Surgery Scheduled/Performed: Follow Up Appt: 04/02/23 [place] Physical Examination: BP 132/80 (BP Location: Right [...] or discoloration Assessment/Plan [place] (more content not included)...[facility]06-02-2023 Note Patient: Dveyn Corona Procedure Summary Date: 03/27/23 Room / Location: [place] [address] / [facility] Gastroenterology Anesthesia Start: 1346 Anesthesia Stop: [...] discharged once all PACU criteria has been met.[facility]06-02-2023 NotePatient: Devyn Whisler Procedure Summary Date: 03/27/23 Room / Location: [place] [address] / [facility] Gastroenterology Anesthesia Start: 1346 Anesthesia Stop: [...] Allowed opportunity for questions and acknowledgement of understanding.[facility] [id number] [facility] Patient Name: Devyn Corona Procedure Date: 03/27/2023 1:42 PM Gender: Female Date of : 1980 Age: 43 Admit Type: Outpatient Note Status: Finalized Endoscopist: Matty Phoenix MD, [id number] Procedure: Upper GI endoscopy Indications: Epigastric abdominal [...] immediate complications. Procedure Code(s): --- Professional --- 95047, Esophagogastroduodenoscopy, flexible, transoral; with biopsy, single or multiple --- Technical --- 26330, Esophagogastroduodenoscopy, flexible, transoral; with biopsy, single or multiple Diagnosis Code(s): --- Professional --- K29.70, Gastritis, unspecified, without bleeding K22.89, Other specified disease of esophagus R10.13, Epigastric pain R13.10, Dysphagia, unspecified --- Technical --- K29.70, Gastritis, unspecified, without bleeding K22.89, Other specified disease of esophagus R10.13, Epigastric pain R13.10, Dysphagia, unspecified CPT copyright 2021 [employer] [place] [employer]. All rights reserved. The codes documented in this report are preliminary and upon appliance parts counter clerk review may be revised to meet current compliance requirements. Attending Participation: I personally performed the entire procedure. Matty Phoenix MD. Matty Phoenix MD 03/27/2023 2:02:02 PM This report has been signed electronically. Number of Addenda: 0 Note Initiated On: 03/27/2023 1:42 [facility] [id number] Note Advanced Laparoscopic Surgery History and Physical [...] who presents for EGD Proceed with EGD [facility] [id number] NotePatient: Devyn Corona Procedure Information Date/Time: 03/27/23 1210 Procedure: EGD WITH BIOPSY - 20 mins Location: [place] [address] / [facility] Gastroenterology Providers: Matty Phoenix MD Relevant [...] results found for this or any previous visit.[facility] 03-27-2023 Telephone encounter Note* Telephone Encounter - VICKI Umana - 03/27/2023 1:[address] Phoenix, request Bentyl for abdominal pain. Rx sent. [facility] [id number] Miscellaneous Notes* Telephone Encounter - Melani Beauchamp PA-C - 03/27/2023 1:[address] Phoenix, request Bentyl for abdominal pain. Rx sent. documented in this encounterSMartins Ferry [id number] Note* Op Note - Matty Phoenix MD - 03/27/2023 1:42 PM EDT [facility] Name: Devyn Corona Procedure Date: 03/27/2023 1:42 PM Gender: Female Date of : 1980 Age: 43 Admit Type: Outpatient Note Status: Finalized Endoscopist: Matty Phoenix MD, [id number] Procedure: Upper GI endoscopy Indications: Epigastric abdominal [...] immediate complications. Procedure Code(s): --- Professional --- 24618, Esophagogastroduodenoscopy, flexible, transoral; with biopsy, single or multiple --- Technical --- 95971, Esophagogastroduodenoscopy, flexible, transoral; with biopsy, single or multiple Diagnosis Code(s): --- Professional --- K29.70, Gastritis, unspecified, without bleeding K22.89, Other specified disease of esophagus R10.13, Epigastric pain R13.10, Dysphagia, unspecified --- Technical --- K29.70, Gastritis, unspecified, without bleeding K22.89, Other specified disease of esophagus R10.13, Epigastric pain R13.10, Dysphagia, unspecified CPT copyright 2021 [employer] [place]. All rights reserved. The codes documented in this report are preliminary and upon appliance parts counter clerk review may be revised to meet current compliance requirements. Attending Participation: I personally performed the entire procedure. Matty Phoenix MD. Matty Phoenix MD 03/27/2023 2:02:02 PM This report has been signed electronically. Number of Addenda: 0 Note Initiated On: 03/27/2023 1:42 PM [id number] Note* Op Note - Matty Phoenix MD - 03/27/2023 1:42 PM EDT [facility] Patient Name: Devyn Corona Procedure Date: 03/27/2023 1:42 PM Gender: Female Date of : 1980 Age: 43 Admit Type: Outpatient Note Status: Finalized Endoscopist: Matty Phoenix MD, [id number] Procedure: Upper GI endoscopy Indications: Epigastric abdominal [...] immediate complications. Procedure Code(s): --- Professional --- 80382, Esophagogastroduodenoscopy, flexible, transoral; with biopsy, single or multiple --- Technical --- 21931, Esophagogastroduodenoscopy, flexible, transoral; with biopsy, single or multiple Diagnosis Code(s): --- Professional --- K29.70, Gastritis, unspecified, without bleeding K22.89, Other specified disease of esophagus R10.13, Epigastric pain R13.10, Dysphagia, unspecified --- Technical --- K29.70, Gastritis, unspecified, without bleeding K22.89, Other specified disease of esophagus R10.13, Epigastric pain R13.10, Dysphagia, unspecified CPT copyright 2021 [employer] [place] [employer]. All rights reserved. The codes documented in this report are preliminary and upon appliance parts counter clerk review may be revised to meet current compliance requirements. Attending Participation: I personally performed the entire procedure. Matty Phoenix MD. Matty Phoenix MD 03/27/2023 2:02:02 PM This report has been signed electronically. Number of Addenda: 0 Note Initiated On: 03/27/2023 1:42 PM T [facility] HospitalMhxldb18-31-1326 Miscellaneous Notes* Op Note - Matty Phoenix MD - 03/27/2023 1:42 PM EDT [facility] Patient Name: Devyn Corona Procedure Date: 03/27/2023 1:42 PM Gender: Female Date of : 1980 Age: 43 Admit Type: Outpatient Note Status: Finalized Endoscopist: Matty Phoenix MD, [id number] Procedure: Upper GI endoscopy Indications: Epigastric abdominal [...] immediate complications. Procedure Code(s): --- Professional --- 19811, Esophagogastroduodenoscopy, flexible, transoral; with biopsy, single or multiple --- Technical --- 05418, Esophagogastroduodenoscopy, flexible, transoral; with biopsy, single or multiple Diagnosis Code(s): --- Professional --- K29.70, Gastritis, unspecified, without bleeding K22.89, Other specified disease of esophagus R10.13, Epigastric pain R13.10, Dysphagia, unspecified --- Technical --- K29.70, Gastritis, unspecified, without bleeding K22.89, Other specified disease of esophagus R10.13, Epigastric pain R13.10, Dysphagia, unspecified CPT copyright 2021 [employer] [place] [employer]. All rights reserved. The codes documented in this report are preliminary and upon appliance parts counter clerk review may be revised to meet current compliance requirements. Attending Participation: I personally performed the entire procedure. Matty Phoenix MD. Matty Phoenix MD 03/27/2023 2:02:02 PM This report has been signed electronically. Number of Addenda: 0 Note Initiated On: 03/27/2023 1:42 PM documented in this [facility]06-02-2023 History and physical note* Matty Phoenix [...] who presents for EGD Proceed with EGD [place] Work Phone: 1(931) 403-407906-02-2023 History and physical note* Matty Phoenix MD [...] EGD Proceed with EGD documented in this [facility]05-01-2023 Telephone encounter Note* Telephone Encounter - Bk Ulloa MA - 02/23/2023 3:48 PM EDT Patient called back and states that date and time are fine. 03/27/2023 [facility] 11:40 with arrival at 10:40 [facility] HospitalGbxesk83-10-0236 Miscellaneous Notes* Telephone Encounter - Bk Ulloa MA - 02/23/2023 3:48 PM EDT Patient called back and states that date and time are fine. 03/27/2023 [facility] 11:40 with arrival at 10:40 * Telephone Encounter - Marquita Adams - 02/23/2023 3:04 PM EDT Requested patient call back to let me know if she could make her EGD appt 03/27/23 11:40 [facility] documented in this [facility]05-01-2023 Telephone encounter Note* Telephone Encounter - Marquita Adams - 02/23/2023 3:04 PM EDT Requested patient call back to let me know if she could make her EGD appt 03/27/23 11:40 [facility] HospitalGdbbib62-22-2821 History of Present illness Narrative* Matty Phoenix MD - 02/19/2023 1:30 PM EDT Images from the original note were not included. [facility] Advanced Laparoscopic Surgery Patient Name: Devyn Corona [...] General (Family Medicine) hf documented in this [facility]05-25-2022 History of Present illness Narrative* Tammy Silva, MANAGER AIR - 03/19/2022 6:19 PM EDT [facility] [address] [facility] [address] [facility] [address] Chief Complaint Patient presents with Right Knee [...] with the treatment options. documented in this [id number] History of Present illness Narrative* Marjorie Chase [...] Laterality: Midline; Surgeon: Matty Donaldson MD; Location: [facility] OR EGD DIAGNOSTIC N/A 01/01/2021 Laterality: N/A; Surgeon: Wilder Hale MD; Location: [facility] ENDOSCOPY COLONOSCOPY DIAGNOSTIC N/A 01/01/2021 Laterality: N/A; Surgeon: Wilder Hale MD; Location: [facility] ENDOSCOPY AUGMENTATION BREAST 2010 KNEE SURGERY [...] PO), Take by mouth., Disp: , Rfl: [facility]-3 Fatty Acids (Fish Oil) 1000 MG capsule, [...] Osmar Garcia MD 01/16/2022 [facility] Miscellaneous Notes* Addendum Note - Osmar Garcia MD - 01/16/2022 4:20 PM EDTAddended by: OSMAR GARCIA on: 01/16/2022 04:22 PM Modules accepted: Orders documented in this encounterSelect [facility]-24-2022 Note* Addendum Note - Osmar Garcia MD - 01/16/2022 4:20 PM EDTAddended by: OSMAR GARCIA on: 01/16/2022 04:22 PM Modules accepted: Orders [facility]-08-2022 History of Present illness Narrative* Tammy Silva CNP - 12/31/2021 10:14 AM ESTAssociated Order(s): LG Jt Injection/Arthrocentesis: R knee Post-Procedure Diagnose(s): S/P right knee arthroscopy LG Jt Injection/Arthrocentesis: R knee Performed by: Tammy Silva CNP Authorized by: Tammy Silva CNP CPT 47736 - Large Joint Arthrocentesis: Consent given by: [...] arthroscopy Tammy Silva CNP documented in this [id number] History of Present illness Narrative* Yuriy Estes [...] have a whole foods diet We discussed Bradley criteria for IBS, We discussed the transit [...] Friends and Family: Once a week Attends Scientologist Services: Not on file Active Member of [...] PO), Take by mouth., Disp: , Rfl: [facility] Fatty Acids (Fish Oil) 1000 MG capsule, [...] recommendations pending patient's response documented in this [facility]01-20-2022 History of Present illness Narrative* Clemente Landis MD - 11/14/2021 3:25 PM EST [facility] (22) [facility] [address] [facility] [address] Subjective: Devyn Corona is a 41 y.o. [...] patient is not nervous/anxious. documented in this [id number] Instructions* Patient Instructions* Natalya Chawla RN - 11/14/2021 3:07 PM EST We will see you back in the office: Labs: Medication Changes: We have scheduled you for the following testing: Our office will call to schedule you after insurance prior authorization is completed If you have any questions regarding testing or appointments, please call Natalya JANE at [phone]. The associates caring for you today were: [...] specific questions regarding billing, please contact the [facility] Patient Accounts Department at . documented in this [id number] History of Present illness Narrative* Clemente Landis MD - 10/29/2021 1:17 PM EST [facility] (22) [facility] [address] [facility] [address] Subjective: Devyn Corona is a 41 y.o. [...] patient is not nervous/anxious. documented in this [id number] Instructions* Patient Instructions* Natalya Chawla RN - [...] or appointments, please call Natalya JANE at [phone]. The associates caring for you today were: [...] specific questions regarding billing, please contact the [facility] Patient Accounts Department at . documented in this [id number] History of Present illness Narrative* Osmar Garcia [...] Laterality: N/A; Surgeon: Wilder Hale MD; Location: [facility] ENDOSCOPY COLONOSCOPY DIAGNOSTIC N/A 01/01/2021 Laterality: [...] Friends and Family: Once a week Attends Scientologist Services: Not on file Active Member of [...] PO), Take by mouth., Disp: , Rfl: [facility]-3 Fatty Acids (Fish Oil) 1000 MG capsule, [...] blood pressure at home documented in this [facility]21 History of Present illness Narrative* Clemente Landis MD - 10/06/2021 10:27 AM EST Nocturnal asymptomatic bradycardia detected. Spoke and reassured the patient. documented in this [id number] History of Present illness Narrative* Clemente Landis MD - 09/03/2021 2:52 PM EST [facility] (22) [facility] [address] [facility] [address] Subjective: Devyn Cornoa is a 41 y.o. female seen in [...] ; Surgeon: Melody Fuentes MD; Location: [place]; Service: Orthopedic BREAST AUGMENTATION Bilateral KNEE SURGERY [...] patient is not nervous/anxious. documented in this [id number] Instructions* Patient Instructions* Natalya Chawla RN - [...] having your test. If you are taking gpva-uzo-mwocsej medications, such as cold tablets or pain [...] or appointments, please call Natalya JANE at [phone]. The associates caring for you today were: [...] specific questions regarding billing, please contact the [facility] Patient Accounts Department at . documented in this [id number] History of Present illness Narrative* Matty Donaldson [...] about 1 year (around 05/07/2022) for with [facility], Annual Exam. The documentation within this encounter was likely aided with BCR Environmental, and electronic trains service conductor device. Please excuse any errors or omissions that may not have been recognized at the time of this encounter. [facility] Diagnosis Postoperative examination- Primary Follow-up examination, following unspecified surgery documented in this encounter [facility] note* Diagnosis Bradycardia- Primary Other specified cardiac dysrhythmias Near syncope Essential hypertension Unspecified essential hypertension SOB (shortness of breath) on exertion Shortness of breath documented in this encounter [facility] note* Diagnosis Hypertension, unspecified type- Primary documented in this encounter [facility] note* Diagnosis Essential hypertension- Primary Unspecified essential hypertension documented in this encounter [facility] note* Diagnosis Bradycardia- Primary Other specified cardiac dysrhythmias Essential hypertension Unspecified essential hypertension SOB (shortness of breath) on exertion Shortness of breath [facility] Diagnosis Essential hypertension- Primary Unspecified essential hypertension Bradycardia Other specified cardiac dysrhythmias documented in this encounter [facility]* Diagnosis Constipation, unspecified constipation type- Primary Irritable bowel syndrome with diarrhea Irritable bowel syndrome documented in this encounter [facility] note* Diagnosis S/P right knee arthroscopy- Primary documented in this encounter [facility] note* Diagnosis Essential hypertension- Primary Unspecified essential hypertension documented in this encounter [facility] note* Diagnosis S/P right knee arthroscopy- Primary Knee instability, right [facility] Diagnosis Onset Date Resolution Status Fatigue acute Bradycardia chronic Essential (primary) hypertension chronic [place] (dyspnea on exertion) [place] Fatigue acute Essential (primary) hypertension chronic [facility] Work Phone: Evaluation noteNo assessment information available [facility] Work Phone: Evaluation note* Diagnosis Epigastric pain- Primary Abdominal pain, epigastric LUQ pain Abdominal pain, left upper quadrant Chronic constipation Unspecified constipation Esophageal dysphagia Dysphagia, pharyngoesophageal phase documented [facility] this encounter [facility]* Diagnosis Epigastric pain Abdominal pain, epigastric Dysphagia [facility]* Diagnosis Dysphagia documented in this [facility]* Diagnosis Epigastric pain Abdominal pain, epigastric documented in this [facility]* Diagnosis S/P right knee arthroscopy- Primary Knee instability, right [facility]* Diagnosis Onset Date Resolution Status Back pain acute Segmental and somatic dysfunction of lumbar region acute Segmental and somatic dysfunction of pelvic region acute [facility] Work Phone: Evaluation note* Diagnosis Onset Date Resolution Status Back pain acute Segmental and somatic dysfunction of lumbar region acute Segmental and somatic dysfunction of pelvic region acute Back pain acute Segmental and somatic dysfunction of cervical region acute Segmental and somatic dysfunction of lumbar region acute Segmental and somatic dysfunction of pelvic region acute Segmental and somatic dysfunction of thoracic region acute [facility] Work Phone: Evaluation note* Diagnosis S/P right knee arthroscopy- Primary Knee instability, right Osteoarthritis of right knee, unspecified osteoarthritis type [facility]* Diagnosis Osteoarthritis of right knee Osteoarthrosis, unspecified whether generalized or localized, lower leg Knee instability, right S/P right knee arthroscopy Osteoarthritis of right knee, unspecified osteoarthritis type Osteoarthritis of right knee, unspecified osteoarthritis type Knee instability, right S/P right knee arthroscopy [facility]* Diagnosis Osteoarthritis of right knee Osteoarthrosis, [...] right knee arthroscopy [facility] Diagnosis S/P total knee arthroplasty, right [facility]* Diagnosis Status post total right knee replacement- Primary [facility]* Diagnosis Status post total right knee replacement- Primary [facility]* Diagnosis Status post total right knee replacement- Primary [facility]* Diagnosis Status post total right knee replacement- Primary [facility]* Diagnosis Status post total right knee replacement- Primary [facility] Diagnosis Status post total right knee replacement- Primary [facility]* Diagnosis Status post total right knee replacement- Primary [facility]* Diagnosis Onset Date Resolution Status Admit Date Abdominal pain acute July 13, 2025 1:27pm Mixed irritable bowel syndrome acute July 13, 2025 1:27pm [facility] Work Phone: Hospital Discharge instructions* Attachments The following attachments cannot be sent through Care Everywhere. * Upper GI Endoscopy Discharge Instructions (Bhutanese) [facility] Additional Instructions Ice and take naproxen and the muscle relaxer as needed. You can also add qclf-bqq-vucnccu Tylenol 1000 mg every 6 hours for additional pain control.[facility] Work Phone: Reason for referral (narrative)No reason for referral information [facility]Sen[facility] Work Phone: Summary Purpose Family History Relationship Condition Age at Onset Recorded Date/T sara father Malignant neoplasm Unknown son Cri-du-chat syndrome Unknown Advance Directives Documents on File Type Date Recorded Patient Acute Care Nursing Assistant Expl anation Advance Directives and Livin g Will 03/22/2019 10:46 AM Latest Code Status on File Code Status Date Activated Date Inactivated Comments Full Code 03/22/2019 10:44 AM Healthcare Agents on File Name Relationship Healthcare Agent Relationshi p Communication No Contact Primary healthcare agent Documents on File Type Date Recorded Patient Acute Care Nursing Assistant Expl anation Advance Directives and Livin g Will 03/22/2019 10:46 AM Latest Code Status on File Code Status Date Activated Date Inactivated Comments Full Code 03/22/2019 10:44 AM Healthcare Agents on File Name Relationship Healthcare Agent Relationshi p Communication No Contact Primary healthcare agent Documents on File Type Date Recorded Patient Acute Care Nursing Assistant Expl anation Advance Directives and Livin g [...] Documents on File Type Date Recorded Patient Acute Care Nursing Assistant Expl anation Advance Directives and Livin g [...] Documents on File Type Date Recorded Patient Acute Care Nursing Assistant Expl anation Advance Directives and Livin g Will 08/01/2019 3:14 PM Healthcare Agents on File Name Relationship Healthcare Agent Relationshi p Communication No Contact Primary healthcare agent Healthcare Agents on File Name Relationship Healthcare Agent Relationshi p Communication No Contact Primary healthcare agent Documents on File Type Date Recorded Patient Acute Care Nursing Assistant Expl anation Advance Directives and Livin g Will 10/07/2019 8:13 AM Latest Code Status on File Code Status Date Activated Date Inactivated Comments Full Code 03/22/2019 10:44 AM 10/07/2019 8:14 AM Healthcare Agents on File Name Relationship Healthcare Agent Relationshi p Communication No Contact Primary healthcare agent Documents on File Type Date Recorded Patient Acute Care Nursing Assistant Expl anation Advance Directives and Livin g [...] Documents on File Type Date Recorded Patient Acute Care Nursing Assistant Expl anation Advance Directives and Livin g [...] Documents on File Type Date Recorded Patient Acute Care Nursing Assistant Expl anation Advance Directives and Livin g [...] No June 02, 2023 9:42am Power of Veneer Clipper No June 02 9:42am Advance Directive Response Recorded Date/ Time Living Will No July 28 6:01pm Power of Veneer Clipper No July 28 023 6:01pm Advance Directive Response Recorded Date/ Time Living Will No September 15 023 1:27pm Power of Veneer Clipper No September 15, 2023 1:27pm Latest Code [...] office visit with Dr Denver Prater at [facility] has been set up for 05/13/19 at 11:30 to go over theresults of the monitor. Any questions or concerns call [phone]. * Attachments The following attachments cannot be sent through Care Everywhere. * Bradycardia (Bhutanese) * Fainting (Bhutanese) documented in this encounter* Instructions* Karen Mota RN - 10/07/2019 GENERAL POST-OPERATIVE PATIENT INSTRUCTIONS ANESTHESIA PRECAUTIONS: A responsible adult must stay with you for at least 24 hours after surgery. You may feel light headed,, dizzy, or nauseated during this time. Do not operate a vehicle (car, bike, motorcycle, paper sorter and counter) machinery or power tools. Do not make [...] to call your physician or the hospital research test engine operator if you have any questions, and [...] your doctor if you can take an zvad-zeg-poaccqd medicine. If you think your pain medicine [...] Log into your personal health record on [email or web address] and enter I338 in the Education box to learn more about Knee Arthroscopy: What to Expect at Home. Current as of: April 20, 2019 Content Version: 12.3 6176-8719 [employer]. Care instructions adapted under license by your healthcare professional. If you have questions about a medical condition or this instruction, always ask your healthcare professional. [employer] disclaims any warranty or liability for your [...] be sent through Care Everywhere. * Gastritis (Bhutanese) documented in this encounter History of Present Illness * Lucy Peña CNP - 03/23/2019 2:34 PM EDT [facility] Medicine Inpatient Follow-up 03/23/2019 Lucy Peña CNP [facility] Patient: Devyn Naranjo Date of : 1980 [...] 03/23/2019 12:54 PM EDT Neurology Inpatient Consult [facility] 03/23/2019 Patient: Devyn Naranjo Date of : 1980 (39 y.o.) Referring Provider: Refer to consult order in electronic medical record PCP: Quiana Warren CNP ASSESSMENT: 39 y.o. female presented to [facility] on 03/22/2019 with syncope. PLAN: Syncope Patient [...] Portions of this chart was created using BCR Environmental voice recognition software. Occasional wrong-word or sound-like [...] drug use. 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 Family history is negative for syncope or [...] file Gets together: Not on file Attends hinduism service: Not on file Active member of [...] murmur. Breath sounds are clear bilateral lung alvarez.Abdomen is soft and nontender. Positive bowel sounds. [...] file Gets together: Not on file Attends hinduism service: Not on file Active member of [...] Barroso, PT - 05/23/2019 6:15 PM EDT [facility] DAILY TREATMENT NOTE Today's Date [...] Notes Supervising PT Kiran Easley Therapeutic Exercise (59920) Intervention Manual cervical traction 20 x 8, [...] [place] stretch) Kiran Barroso PT STATE LICENSE, [id number] documented in this encounter* Kiran Barroso, PT - 05/30/2019 6:15 PM EDT [facility]ILY TREATMENT NOTE Today's Date [...] Visit: continue Kiran Barroso PT STATE LICENSE, [id number] documented in this encounter* Maylin Lu PTA - 06/01/2019 6:15 PM EDT [facility] DAILY TREATMENT NOTE Today's Date [...] HHD exercises Maylin Lu PTA STATE LICENSE, [id number] documented in this encounter* Kiran Barroso, PT - 06/06/2019 6:15 PM EDT [facility] DAILY TREATMENT NOTE Today's Date [...] to HEP Kiran Barroso PT STATE LICENSE, [id number] documented in this encounter* Maylin Lu, MICHELLE - 06/08/2019 6:15 PM EDT [facility] DAILY TREATMENT NOTE Today's Date [...] PT Kiran Easley Vitals 616- Therapeutic Exercise (86721) Intervention Manual cervical traction 30 x 8, [...] possible DC. Maylin Lu PTA STATE LICENSE, [id number] documented in this encounter* Tammy Silva CNP - 08/08/2019 1:39 PM EDT Associated Order(s): LG Jt Injection/Arthrocentesis: L knee Post-Procedure Diagnose(s): Primary osteoarthritis of left knee LG Jt Injection/Arthrocentesis: L knee Performed by: Tammy Silva CNP Authorized by: Tammy Silva CNP CPT 43949 - Large Joint Arthrocentesis: Consent given by: [...] CNP Authorized by: Tammy Silva CNP CPT 60971 - Large Joint Arthrocentesis: Consent given by: [...] on: 10/25/2019 1:19 PM by: HILTON CAMARILLO [[id number]] documented in this encounter* Mary Resendiz APRN-CNP - 11/15/2019 4:00 PM EST Patient: Devyn Corona Patient : 1980 Patient Age: 39 y.o. Today's Date: 11/16/2019 Provider: KEMAR Schulz History of Present Illness: Patient here today for evaluation of Chief Complaint Patient presents with Sore Throat Patient is here for ST and body aches since thursday. 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 Reports that she has noticed a runny [...] mouth Daily (with dinner)., Disp: , Rfl: [facility]-3 1000 MG Cap, Take 1 capsule by [...] ChioKiran, PT - 05/25/2019 5:30 PM EDT [facility] DAILY TREATMENT NOTE Today's Date [...] Treatments: Physical Therapy Exercise Log - 05/25/19 6697 OTHER Notes Supervising PT Kiran 8 Therapeutic Exercise (93071) Intervention Manual cervical traction 20 x 8, [...] synrome tests Kiran Barroso PT STATE LICENSE, [id number] documented in this encounter* Osmar Garcia MD [...] Friends and Family: Not on file Attends Scientologist Services: Not on file Active Member of [...] mouth Daily (with dinner)., Disp: , Rfl: [facility]-3 Fatty Acids (Fish Oil) 1000 MG capsule, [...] DIAGNOSTIC pantoprazole [address] tablet [facility] Fatty Acids (Fish Oil) 1000 MG capsule [...] & NAILS ADVANCED PO) Take by mouth. [facility] Fatty Acids (Fish Oil) 1000 MG capsule [...] Friends and Family: Once a week Attends Scientologist Services: Not on file Active Member of [...] was likely aided with Dragon, and electronic trains service conductor device. Please excuse any errors or omissions that may not have been recognized at the time of this encounter. documented in this encounter* Kiran Barroso, PT - 05/13/2019 2:30 PM EDT [facility] Evaluation Today's Date 05/16/2019 Patient [...] the pain in her arms Social History Scientologist, social, or cultural considerations to be made [...] hypothenar eminence WNL - no visible atrophy. Electric Stove Mechanic strength R: 85# L: 80# (+) ULTT 1 R >L (+) ULTT 3 R>L Increased tone bilateral UTs Treatments: Physical Therapy Exercise Log - 05/16/19 0813 OTHER Notes Supervising PT Kiran Easley Therapeutic Exercise (34258) Intervention Manual cervical traction Parameters Manual median [...] to MD. Kiran Barroso PT STATE LICENSE, [id number] documented in this encounter Assessments Diagnosis Closed [...] Cardiac event monitor Juana Das MD [address] [id number] Status Reason Specialty Diagnoses / Procedures Referred By Contact Referred To Contact Authorized Rehabilitation Diagnoses Lalitha Joshua MD [address] [id number] Status Reason Specialty Diagnoses / Procedures Referred By Contact Referred To Contact Authorized Neurology Diagnoses Lalitha Joshua MD [address] [id number] Status Reason Specialty Diagnoses / Procedures Referred By Contact Referred To Contact New Request Diagnoses LGI bleed Procedures CASE REQUEST - ENDOSCOPY Osmar Garcia MD [address] [address] Specialty Diagnoses / Procedures Referred By Contac t Referred To Contact Cardiology Diagnoses Bradycardia Near syncope Procedures Cardiac event monitor Clemente Landis MD [address] [place] [address] Referral ID Status Reason Start Date Expiration Date V isits Requested Visits Authorized [id number] Authorized 09/03/2021 09/03/2022 1 1 Specialty Diagnoses / Procedures Referred By Contac t Referred To Contact Cardiology Diagnoses Bradycardia Near syncope Procedures Stress test only, exercise Clemente Landis MD [address] [place] [address] Referral ID Status Reason Start Date Expiration Date V isits Requested Visits Authorized [id number] Authorized 09/03/2021 09/03/2022 1 1 Specialty Diagnoses / Procedures Referred By Contac t Referred To Contact Cardiology Diagnoses SOB (shortness of breath) on exertion Procedures Echocardiogram complete Clemente Landis MD [address] [place] [address] Referral ID Status Reason Start Date Expiration Date V isits Requested Visits Authorized [id number] New Request 09/03/2021 09/03/2022 1 1 Specialty Diagnoses / Procedures Referred By Contac t Referred To Contact Radiology Diagnoses Epigastric pain Procedures NM hepatobiliary scan with pharm agent w/cck Britney Montes PA-C [address] [place] [address] Referral ID Status Reason Start Date Expiration Date V isits Requested Visits Authorized [id number] Pending Review 02/19/2023 08/18/2023 3 3 Referral ID Status Reason Start Date Expiration Date V isits Requested Visits Authorized [id number] Authorized 02/19/2023 08/18/2023 3 3 Specialty Diagnoses / Procedures Referred By Contac t Referred To Contact Radiology Diagnoses Epigastric pain Procedures CT abdomen pelvis w contrast Matty Phoenix MD [address] [place] [address] Referral ID Status Reason Start Date Expiration Date Visits Re quested Visits Authorized [id number] Closed 04/02/2023 09/29/2023 1 1 Specialty Diagnoses / Procedures Referred By Contac t Referred To Contact Rehabilitation Diagnoses Osteoarthritis of right knee, unspecified osteoarthritis type Tammy Silva, MANAGER AIR [address] [place] [address] [address] Referral ID Status Reason Start Date Expiration Date Visits Requested Visits Authorized [id number] Authorized Specialty Services Required/Pat ient's Best Interest 11/12/2023 11/11/2024 1 1 Specialty Diagnoses / Procedures Referred By Contac t Referred To Contact Physical Therapy Diagnoses Status post total right knee replacement [place] [address] OF SERVICE NOT IN SYSTEM Referral ID Status Reason Start Date Expiration Date Visits Requested Visits Authorized [id number] Authorized Patient Preference 01/06/2024 01/05/2025 1 1 [...] and content) DATE CREATED AUTHOR [facility]23/2018 [facility] DATE CREATED AUTHOR AUTHOR'S ORGANIZ ATION 06/06/2019 [facility] DATE CREATED AUTHOR AUTHOR'S ORGANIZ ATION 07/24/2021 [facility] DATE CREATED AUTHOR AUTHOR'S ORGANIZ ATION 10/25/2021 [facility] DATE CREATED AUTHOR AUTHOR'S ORGANIZ ATION 12/03/2021 [facility] DATE CREATED AUTHOR AUTHOR'S ORGANIZ ATION 04/16/2023 [facility] DATE CREATED AUTHOR AUTHOR'S ORGANIZ ATION 01/10/2024 [facility] DATE CREATED AUTHOR AUTHOR'S ORGANIZ ATION 06/06/2024 [facility] DATE CREATED AUTHOR AUTHOR'S ORGANIZ ATION 07/15/2025 [facility] Reason for Visit (unrecogniz ed section and content) Reason Comments Physical Therapy Specialty Diagnoses / Procedures Referred By Contac t Referred To Contact Rehabilitation Diagnoses Osteoarthritis of right knee, unspecified osteoarthritis type Tammy Silva, MANAGER AIR [address] [place] [address] Rehab [place] [address] [place] [address] Referral ID Status Reason Start Date Expiration Date Visits Requested Visits Authorized [id number] Authorized Specialty Services Required/Pat ient's Best Interest [...] event monitor Juana Das MD [address] [place] [address] Reason Comments Numbness Patient is having nu mbness and a lot of pain in both arms. She has had this problem for 2 months. Status Reason Specialty Diagnoses / Procedures Referred By Contact Referred To Contact Closed Specialty Services Required/Patient 's Best Interest Neurosurgery Diagnoses Paresthesia Omsar Garcia MD [address] [place] [address] Lalitha Iraheta MD [address] [phone] Status Reason Specialty Diagnoses / Procedures Referred By Contact Referred To Contact Authorized Rehabilitation Diagnoses Lalitha Joshua MD [address] [place] [address] [address] [phone] Status Reason Specialty Diagnoses / Procedures Referred By Contact Referred To Contact Authorized Rehabilitation Diagnoses Lalitha Joshua MD [address] [place] [address] [place] [address] Reason Comments Pain Status Reason Specialty Diagnoses / Procedures Re ferred By Contact Referred To Contact Diagnoses Primary osteoarthritis of right knee Primary osteoarthritis of left knee Primary osteoarthritis of right knee [M17.11] Primary osteoarthritis of left knee [M17.12] Procedures AZ KNEE SCOPE,MED/LAT MENISECTOMY AZ REMOVAL DEEP IMPLANT Melody Fuentes MD [address] [place] [address] Reason Comments Follow-up Suture / Staple Removal [...] red rectal bleeding [K62.5] Heartburn [R12] Procedures AZ ESOPHAGOGASTRODUODENOSCOPY TRANSORAL DIAGNOSTIC AZ COLONOSCOPY FLX DX W/COLLJ SPEC WHEN PFRMD EGD DIAGNOSTIC COLONOSCOPY DIAGNOSTIC Status Reason Specialty Diagnoses / Procedures Referre d By Contact Referred To Contact Closed Neurology Diagnoses Lalitha Joshua MD [address] [place] [address] Waqar Alcocer MD [address] [place] [address] Reason Comments New Patient had work up for hyst erectomy, heavy vag bleeding, severe cramping Reason Comments Post Op Visit 04/16/2021 [facility]AL[facility], bila teral salpingectomy Reason Comments Hypertension Reason Comments Follow-up Reason Onset Date Comments Medication Refill 11/14/2021 Reason Comments Constipation Reason Comments Pain Follow-up Reason Comments 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 Patient 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 GARCIA - GERD/POSSIBLE HERNIA Reason Onset Date Comments Endoscopy 02/23/2023 Specialty Diagnoses / Procedures Referred By Az t Referred To Contact Radiology Diagnoses Epigastric pain Procedures NM hepatobiliary scan with pharm agent w/cck Britney Montes PA-C [address] [facility] [address] [place] [address] Referral ID Status Reason Start Date Expiration Date V isits Requested Visits Authorized [id number] Authorized 02/19/2023 08/18/2023 3 3 Reason Onset Date Comments Other 03/27/2023 Specialty Diagnoses / Procedures Referred By Az jiménez Referred To Contact Diagnoses Dysphagia Dysphagia [R13.10] Procedures AZ EGD TRANSORAL BIOPSY SINGLE/MULTIPLE EGD WITH BIOPSY Matty Phoenix MD [address] [facility] [address] [place] [address] [facility] [address] [place] [address] Referral ID Status Reason Start Date Expiration Date Visits Re quested Visits Authorized [id number] 1 1 Specialty Diagnoses / Procedures Referred By Az jiménez Referred To Contact Radiology Diagnoses Epigastric pain Procedures CT abdomen pelvis w contrast Matyt Phoenix MD [address] [place] [address] Referral ID Status Reason Start Date Expiration Date Visits Re quested Visits Authorized [id number] Closed 04/02/2023 09/29/2023 1 1 Reason Onset [...] H&P Notes (unrecognized sect ion and content) [facility] Medicine Inpatient H&P 03/22/2019 Thierry Garland MD [facility] Patient: Devyn Naranjo Date of : 1980 (39 y.o.) PCP: Quiana Warren MANAGER AIR Assessment Devyn Naranjo 39 y.o. female presented [...] Devyn Naranjo Admit Date: [id number] MR #: [id number] : 1980 The H&P has been reviewed [...] 40 y.o. female who presents to the [facility] G[facility]ology today for consultation regarding Rectal Bleeding, [...] 1 tablet by mouth Daily (with dinner). [facility]-3 Fatty Acids (Fish Oil) 1000 MG capsule [...] had scope done. Takes iron. Insurance Company: [employer] 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 Patient was advised to undergo Ayepthdd-ogvjld-kcqvjzcbitqn, Nature of procedure, risks, benefits and complications [...] patient agrees. This dictation was created using [employer] voice recognition technology. 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 Previous 30-day event [...] very active lifestyle. 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 female presented to [facility] on 03/22/2019 with syncope. PLAN: Syncope Patient [...] Portions of this chart was created using [employer] voice recognition software. Occasional wrong-word or sound-like [...] drug use. 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 Family history is negative for syncope or [...] file Gets together: Not on file Attends hinduism service: Not on file Active member of [...] patient examination. Patient seen and examined by [place] stroke neurologist Dr. Bal who stated no [...] TO DO RECTAL EXAM. PT TOLERATES WELL. [facility] ED SUN Note: NAME: Devyn Corona 40 y.o. CSN: [id number] PCP: Osmar Garcia MD History: Chief Complaint: [...] of gastric reflux, has not taken anything zemc-dew-izldzoc. No changes to diet. PMHx: Past Medical [...] file Gets together: Not on file Attends hinduism service: Not on file Active member of [...] following components: Clarity, Urine Hazy (*) Specific [place] 1.030 (*) Leukocyte Esterase, Urine Small (*) [...] Procedure Abnormality Status --------- ------ CBC Auto Differential[[id number]] Final result Please view results for these [...] of the endometrium. No significant free fluid. [employer] Workstation ID: [id number] CT Abdomen Pelvis With [...] 5. Moderate amount of free pelvic fluid. 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 Previous 30-day event [...] how this information may be shared within [facility]. 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 Previous 30-day event [...] Portions of this chart was created using [employer] voice recognition software. Occasional wrong-word or sound-like [...] the medial femoral condyle osteophyte back to wrangell medial condyle. At this time, I then [...] PACU without intraoperative complication. D 10/07/2019 13:22 [id number] 10/07/2019 14:21 MCB/MODL Brief Post Operative Note Patient Name: Devyn Naranjo : 1980 (39 y.o.) Date of Service: 10/07/2019 CSN: [id number] Procedure(s): Right knee arthroscopy with screw removal, partial meniscectomy, abrasion chondroplasty Pre-Operative Diagnoses: * Primary osteoarthritis of right knee [M17.11] Primary osteoarthritis of left knee [M17.12] Post-Operative Diagnoses: * Same as Pre-Op Diagnosis * Primary osteoarthritis of right knee [M17.11] * Primary osteoarthritis of left knee [M17.12] Surgeon(s) and Role: * Melody Fuentes MD - Primary Anesthesiologist: Marek Barboza MD Anesthesiologist Chemistry Tutor: HELGA Mallory Scrub Person: Jessica Washburn RN Certified Coder Orientee: Debo Paredes RN Certified Coder Preceptor: Maddy Lopez RN Scrub Person Assist: Marce Whitney RN Operative findings: djd Intra and immediate post-operative complications: none Type of anesthesia used: Monitor Anesthesia Care Estimated blood loss: 5 mL Estimated urine output: 0 mL Specimen(s): * No specimens in log * Implant(s): Implant Name Type Inv. Item Serial No. Brushing Machine Operator Lot No. [id number] No. Used Action 1 [...] Care Teams (unrecognized sec tion and content) Manager Program Management Relationship Specialty Start Date End Date Osmar Garcia MD PCP - General Internal Medicine 08/01/19 Manager Program Management Relationship Specialty Start Date End Date Osmar Garcia MD PCP - General Internal Medicine 08/01/19 Manager Program Management Relationship Specialty Start Date End Date Osmar Garcia MD PCP - General Internal Medicine 08/01/19 Manager Program Management Relationship Specialty Start Date End Date Osmar Garcia MD PCP - General Internal Medicine 08/01/19 Manager Program Management Relationship Specialty Start Date End Date Osmar Garcia MD [address] [address] PCP - General Internal Medicine 12/03/20 Manager Program Management Relationship Specialty Start Date End Date Osmar Garcia MD PCP - General Internal Medicine 08/01/19 Manager Program Management Relationship Specialty Start Date End Date Osmar Garcia MD PCP - General Internal Medicine 08/01/19 Manager Program Management Relationship Specialty Start Date End Date Osmar Garcia MD PCP - General Internal Medicine 08/01/19 Manager Program Management Relationship Specialty Start Date End Date Osmar Garcia MD [address] [address] PCP - General Internal Medicine 12/03/20 Manager Program Management Relationship Specialty Start Date End Date Osmar Garcia MD PCP - General Internal Medicine 08/01/19 Manager Program Management Relationship Specialty Start Date End Date Osmar Garcia MD [address] [address] PCP - General Internal Medicine 12/03/20 Team [...] Pr ovider, Attending Provider, Referring Provider Active Manager Program Management Relationship Specialty Start Date End Date Nupur Garcia MD [address] [facility] [address] [place] [phone] PCP - General Family Medicine 02/17/23 Manager Program Management Relationship Specialty Start Date End Date Nupur Garcia MD [address] [facility] [address] [place] [phone] PCP - General Family Medicine 02/17/23 Manager Program Management Relationship Specialty Start Date End Date Nupur Garcia MD [address] [facility] [address] [place] [phone] PCP - General Family Medicine 02/17/23 Manager Program Management Relationship Specialty Start Date End Date Osmar Garcia MD PCP - General Internal Medicine 08/01/19 Manager Program Management Relationship Specialty Start Date End Date Nupur Garcia MD [address] [facility] [address] [place] [address] PCP - General Family Medicine 02/17/23 Manager Program Management Relationship Specialty Start Date End Date Nupur Garcia MD [address] [facility] [address] [place] [address] PCP - General Family Medicine 02/17/23 Manager Program Management Relationship Specialty Start Date End Date Nupur Garcia MD [address] [facility] [address] [place] [address] PCP - General Family Medicine 02/17/23 Manager Program Management Relationship Specialty Start Date End Date Nupur Garcia MD [address] [facility] [address] [place] [address] PCP - General Family Medicine 02/17/23 Manager Program Management Relationship Specialty Start Date End Date Osmar [...] Dr. Donn Mackey DO Emergency Provider Active Manager Program Management Relationship Specialty Start Date End Date Nupur Garcia MD [address] [place] [address] [address] [place] [address] PCP - General Endocrinology/Metabolism 11/12/23 Manager Program Management Relationship Specialty Start Date End Date Nupur Garcia MD [address] [place] [address] [address] [place] [address] PCP - General Endocrinology/Metabolism 11/12/23 Manager Program Management Relationship Specialty Start Date End Date Nupur Garcia MD [address] [place] [address] [address] [place], [place] [phone] PCP - General Endocrinology/Metabolism 11/12/23 Manager Program Management Relationship Specialty Start Date End Date Nupur Garcia MD [address] [place] [address] [address] [place] [address] PCP - General Endocrinology/Metabolism 11/12/23 Manager Program Management Relationship Specialty Start Date End Date Nupur Garcia MD [address] [place] [address] [address] [place], [place] [address] PCP - General Endocrinology/Metabolism 11/12/23 Manager Program Management Relationship Specialty Start Date End Date Nupur Garcia MD [address] [place] [address] [address] [place] [address] PCP - General Endocrinology/Metabolism 11/12/23 Manager Program Management Relationship Specialty Start Date End Date Nupur Garcia MD [address] [place] [address] [address] [place] [address] PCP - General Endocrinology/Metabolism 11/12/23 Manager Program Management Relationship Specialty Start Date End Date Nupur Garcia MD [address] [place] [address] [address] [place] [address] PCP - General Endocrinology/Metabolism 11/12/23 Manager Program Management Relationship Specialty Start Date End Date Nupur Garcia MD [address] [place] [address] [address] [place] [address] PCP - General Endocrinology/Metabolism 11/12/23 Manager Program Management Relationship Specialty Start Date End Date Nupur Garcia MD [address] [place] [address] [address] [place] [address] PCP - General Endocrinology/Metabolism 11/12/23 Manager Program Management Relationship Specialty Start Date End Date Nupur Garcia MD [address] [place] [address] [address] [place] [address] PCP - General Endocrinology/Metabolism 11/12/23 Manager Program Management Relationship Specialty Start Date End Date Nupur Garcia MD [address] [place] [address] [address] [place] [address] PCP - General Endocrinology/Metabolism 11/12/23 Manager Program Management Relationship Specialty Start Date End Date Nupur Garcia MD [address] [place] [address] [address] [place] [address] PCP - General Endocrinology/Metabolism 11/12/23 Manager Program Management Relationship Specialty Start Date End Date Nupur Garcia MD [address] [place] [address] PCP - General Endocrinology/Metabolism 11/12/23 Manager Program Management Relationship Specialty Start Date End Date Nupur Garcia MD [address] [address] PCP - General Endocrinology/Metabolism 11/12/23 Team Status: [...] BE BASED ON THE PRIMARY CLINICAL RECORDS. [employer] [facility]. provides no warranty or guarantee of the accuracy or completeness of information in this document.
[2025-07-21 15:08] LABS: Pancreatic Elastase, Fecal 547 (>200)
[2025-07-21 16:09] LABS: Calprotectin, Stool 24 ug/g (0-120)
== END | disposition home or self-care (01) ==
PROVIDERS: PCP Family Medicine; Referring Provider Internal Medicine Gastroenterology; Visit Provider Internal Medicine Gastroenterology
DX: K58.2 Mixed irritable bowel syndrome (principal); R10.9 Unspecified abdominal pain
CPT/HCPCS: 82653; 83630; 83993

== ENCOUNTER → 2025-08-07 | Outpatient (CLI) | payer OTHER, SELFPAY ==
--- NOTE | 2025-08-07 11:23 | NM_ITS ---
PROCEDURE: GASTRIC EMPTYING STUDY 08/07/2025 REASON FOR EXAM: ABD PAIN, NAUSEA COMPARISON: None TECHNIQUE: Procedure Code: NMGES Modality: NM Procedure: GASTRIC EMPTYING STUDY The patient ingested a standard meal of oatmeal, sulfur colloid and water. There was no vomiting postprandially. Anterior and posterior planar images of the upper abdomen were obtained for 1 minute immediately following the meal at 1h, 2h and 4h if more than 10% of the activity persisted within the stomach. Regions of interest were drawn, and a geometric mean was used to calculate a [id number]. RADIOPHARMACEUTICAL: Sulfur colloid DOSE 1.1mCi FINDINGS: Percent activity remaining in stomach: 1 hour 49 % (normal 37-90%) NM/Gastric Emptying Study IMPRESSION: Unremarkable gastric emptying study. Reading Location: [place] [id number]
== END | disposition home or self-care (01) ==
PROVIDERS: PCP Family Medicine; Referring Provider Internal Medicine Gastroenterology; Visit Provider Internal Medicine Gastroenterology
DX: R10.9 Unspecified abdominal pain (principal); R11.0 Nausea
CPT/HCPCS: 78264; A9541